=== PATIENT | female | born 1945 | race Caucasian/White ===

== ENCOUNTER 2017-09-11 13:30 | Outpatient (RCR) | payer MEDICARE, OTHER, SELFPAY ==
[2017-08-12 00:24] VITALS: BP 133/70; PULSE 79; RESP 16; TEMP 35.5
[2017-08-21 13:14] VITALS: BP 106/73; PULSE 84; RESP 18; TEMP 36.2
--- NOTE | 2017-08-21 21:59 | PN.PCM_ITS ---
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 Status: Chronic Current Visit: Yes Code(s): L97.912 - 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chronic ulcer of unspecified part of right lower leg with fat layer exposed (3) Lymphedema of lower extremity Status: Chronic Current Visit: Yes Qualifiers: Laterality: bilateral Qualified Code(s): I89.0 - Lymphedema, not elsewhere classified Code(s): I89.0 - Lymphedema, not elsewhere classified (4) Malnutrition Status: Chronic Current Visit: Yes Code(s): E46 - Unspecified protein- calorie malnutrition (5) Edema leg Status: Chronic Current Visit: Yes Code(s): R60.0 - Localized edema (6) Venous insufficiency (chronic) (peripheral) Status: Chronic Current Visit: Yes Type of Wound Date of Service: 08/22/17 Chief Complaint: ulcer right leg with fat layer exposed. Worsening leg swelling secondary to fluid overload, lymphedema, and venous insufficiency. left leg ulcer with fat layer exposed. History of Wound: She is following up for right and left leg ulcerations that are chronic. She denies odor, loss of appetite, N/V/F/C/loss of appetite. She denies recent Lasix use. She also continues to use her left cam walker boot for her other musculoskeletal injuries while she waits for her Flora brace and appropriate shoe gear to be completed. She uses an assistive device and family helps her transport to various medical visits. She had continued difficulty with her compression dressings. She is getting frustrated with her lack of improvement and her worsening leg swelling. She is here today with her daughter. Progress of Wound: Worse - Physical Exam Vital Signs Temp Pulse Resp BP 97.1 F L 84 18 106/73 08/21/17 13:14 08/21/17 13:14 08/21/17 13:14 08/21/17 13:14 General: Alert, Oriented x3, Cooperative Extremities: No cyanosis, Capillary Refill Less than 3 Seconds - All digits bilateral foot, No Calf Tenderness - Negative Cassie and Benitez sign bilateral, Diminished Peripheral Pulses, Edema - +3 bilateral lower extremities Skin: Ulcer/ Wound - Right leg ulcer is now circumferential. Her skin is atrophic with hyperpigmented discoloration and no hair bilateral. The left leg is more of a some hemorrhagic tissue exposure and the right leg has exposed subcutaneous tissue. There is no odor, maceration, erythema, streaking, or deep tissue exposure. Her legs are indurated however the compartments of the lower extremities remain soft bilateral Wound Measurements and Assessment WC - Nurse 1 - General Ulcer Measurement Start: 08/21/17 13:14 Freq: Status: Active Protocol: Activity Type Activity Date Activity User E-Sign Co-Sign Detail Recorded Client Recorded Date Recorded By Document 08/21/17 13:14 DL [id number] 08/21/17 13:23 DL 08/21/17 13:14 Wound Center Nurse 1 [Ulcer Assessment Protocol: WC.WD.LOC] #6- RT MEDIAL LE CLUSTER -Combined with other wound Yes -Combined with (Name of Wound-Exactly 3 as it is documented) #4 L Lat LE cluster -Combined with other wound No -Current Size (cm) - Length 16.5 -Current Size (cm) - Width 9.1 -Current Size (cm) - Depth 0.1 -Total Square Cm 150.15 -Photo Taken No -Epithelialization None Present -Tunneling No -Undermining/Tunneling No -Circular Undermining No -Exudate Amt Large (67-100%) -Exudate Type Serosanguineous -Wound Margin Flat & Intact -Granulation Amt Large (67-100%) -Granulation Quality Red -Slough/Fibrin Yes -Necrosis Amt Small (1-33%) -Necrotic Tissue Type Adherent Slough -Structure Exposed N/A -Texture (Vickie-wound Skin Appearance) Assessed Excoriation Localized Edema -Moisture (Vickie-wound Skin Appearance Assessed ) Dry/Scaly -Color (Vickie-wound Skin Appearance) Assessed Hemosiderin Staining -Temperature (Vickie-wound Skin No Abnormality Appearance) (Pt Warm) -Tenderness on Palpation (Vickie-wound Yes Skin Appearance) -Ulcer Cleansing Wound Cleanser -Foul Odor after Cleansing No -Anesthetic Used 4% Lidocaine Solution #3- RT LE CLUSTER -Combined with other wound No -Current Size (cm) - Length 12.5 -Current Size (cm) - Width 40.0 -Current Size (cm) - Depth 0.1 -Total Square Cm 500.00 -Photo Taken No -Epithelialization None Present -Tunneling No -Undermining/Tunneling No -Exudate Amt Large (67-100%) -Exudate Type Serosanguineous -Wound Margin Flat & Intact -Granulation Amt Large (67-100%) -Granulation Quality Red -Slough/Fibrin Yes -Necrosis Amt Small (1-33%) -Necrotic Tissue Type Adherent Slough -Structure Exposed N/A -Texture (Vickie-wound Skin Appearance) Assessed Excoriation Localized Edema -Moisture (Vickie-wound Skin Appearance Assessed ) Weeping Dry/Scaly -Color (Vickie-wound Skin Appearance) Assessed Hemosiderin Staining -Temperature (Vickie-wound Skin No Abnormality Appearance) (Pt Warm) -Tenderness on Palpation (Vickie-wound No Skin Appearance) -Ulcer Cleansing Wound Cleanser -Foul Odor after Cleansing No -Anesthetic Used 4% Lidocaine Solution #2- RT LATERAL POST LE cluster -Combined with other wound Yes -Combined with (Name of Wound-Exactly 3 as it is documented) [Edema Assessment] -Lower Limb Edema Present Yes -Right Calf (cm) 57.0 -Right Ankle (cm) 24.0 -Left Calf (cm) 54.0 -Left Ankle (cm) 24.0 WC - Nurse 2 - General Ulcer CM Notes Start: 08/21/17 13:14 Freq: Status: Active Protocol: Activity Type Activity Date Activity User E-Sign Co-Sign Detail Recorded Client Recorded Date Recorded By Document 08/21/17 13:45 PARVIZ [id number] 08/21/17 13:46 PARVIZ 08/21/17 13:45 Wound Center Nurse 2 [Procedure/Treatment] #4 L Lat LE cluster -Correct Patient No -Correct Side, Site, Position No -Correct Procedure No -Procedure Performed No #3- RT LE CLUSTER -Correct Patient No -Correct Side, Site, Position No -Correct Procedure No -Procedure Performed No [See Physician Procedure note for Specifics] Pain Scale: 0-10 Numeric [Pain] -Is Patient Pain Free? Yes Musculoskeletal: No Tenderness to Palpation of Joints or Extremities, Muscle Wasting, - - Active range of motion toes bilateral Neurological: Sensory exam intact to light touch and pain Psych/Mental Status: Normal Affect, Appropriate Debridement Note Post-Debridement Measurements/Treatment WC - Nurse 2 - General Ulcer CM Notes Start: 08/21/17 13:14 Freq: Status: Active Protocol: Activity Type Activity Date Activity User E-Sign Co-Sign Detail Recorded Client Recorded Date Recorded By Document 08/21/17 13:45 [id number] 08/21/17 13:46 PARVIZ 08/21/17 13:45 Wound Center Nurse 2 #4 L Lat LE cluster -Correct Patient No -Correct Side, Site, Position No -Correct Procedure No -Procedure Performed No #3- RT LE CLUSTER -Correct Patient No -Correct Side, Site, Position No -Correct Procedure No -Procedure Performed No Pain Scale: 0-10 Numeric Is Patient Pain Free? Yes Wound debrided: Leg Laterality: Right Wound Grade/Stage: Grade 1 Type of Debridement: Excisional debridement Anesthesia Used: 4% Lidocaine Solution Depth: in the subcutaneous layer Percentage of wound debrided: 100 Instrument Used: #15 blade Tissue Removed: Fibrous, devitalized subcutaneous, biofilm, slough Severity: Fat Layer Exposed Amount of bleeding with debridement: Mild Bleeding Controlled with: Pressure Patient tolerated procedure well - Additional Wound Wound debrided: Leg Laterality: Left Wound Grade/Stage: Grade 1 Type of Debridement: Selective debridement Anesthesia Used: 4% Lidocaine Solution Depth: Down to and including healthy tissue Percentage of wound debrided: 100 Instrument Used: #15 blade Tissue Removed: Fibrous, devitalized tissue, biofilm, slough Severity: Limited To Skin Breakdown Amount of bleeding with debridement: Mild Bleeding Controlled with: Pressure Patient tolerated procedure: Patient tolerated procedure well Assessment/Plan Active Problems Venous insufficiency (chronic) (peripheral) (Chronic) Lymphedema of lower extremity (Chronic) Chronic ulcer of right leg with fat layer exposed (Chronic) Ulcer of left lower extremity with fat layer exposed (Chronic) Malnutrition (Chronic) Edema leg (Chronic) Assessment: Right leg ulcers with fat layer exposed; multiple. left leg ulcer with fat layer exposed. leg edema, lymphedema. malnutrition. venous insufficiency. delayed healing. Gait instability and continued fall risk. Nonadherence to treatment recommendations. 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 Debridement was performed as noted above and in the clinical panel (SQ) and selective to both legs to multiple sites. She defers continue to advance wound care product application, Apligraf. Keeping these dressings in place significantly impairs her quality of life. 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 It is noted her body habitus is limiting the results. To continue diuresis plan with her primary care physician; a refill for Lasix and potassium was provided. I advised her to resume use as previously advised. A referral was provided to Dr. Kunz (august 14 and ) to see if venous intervention is a treatment option. She is scheduled to follow-up on September 30, 2017 for further intervention. Today, a multilayer later compression wrap 3M2L was applied and she was advised to return for nursing visit later this week. . We discussed in depth the importance of edema control. To keep legs elevated above heart while resting. To avoid lying directly on the wound while seated or in bed. To avoid idle standing or sitting for prolonged time. To monitor for signs of infection. This is not noted today. To maintain a healthy diet to optimize healing. Lab work was also previously reviewed including CBC and CMP. RTC (wound center) in 1 week as scheduled or call sooner if she has questions or concerns.
[2017-08-26 12:04] VITALS: BP 150/73; PULSE 85; RESP 18; TEMP 35.5
[2017-08-28 13:01] VITALS: BP 116/65; PULSE 90; RESP 16; TEMP 35.2
--- NOTE | 2017-08-28 21:30 | PN.PCM_ITS ---
(1) Ulcer of left lower extremity with fat layer exposed Status: Chronic Code(s): L97.922 - 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chronic ulcer of unspecified part of left lower leg with fat layer exposed (2) Chronic ulcer of right leg with fat layer exposed Status: Chronic Code(s): L97.912 - 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chronic ulcer of unspecified part of right lower leg with fat layer exposed (3) Lymphedema of lower extremity Status: Chronic Qualifiers: Laterality: bilateral Qualified Code(s): I89.0 - Lymphedema, not elsewhere classified Code(s): I89.0 - Lymphedema, not elsewhere classified (4) Malnutrition Status: Chronic Code(s): E46 - Unspecified protein-calorie malnutrition (5) Edema leg Status: Chronic Code(s): R60.0 - Localized edema (6) Venous insufficiency (chronic) (peripheral) Status: Chronic Type of Wound Date of Service: 08/31/17 Chief Complaint: leg ulcers. History of Wound: She is following up for right and left leg ulcerations that are chronic. She denies odor, loss of appetite, N/V/F/C/loss of appetite. She denies recent Lasix use. She also continues to use her left cam walker boot for her other musculoskeletal injuries while she waits for her Flora brace and appropriate shoe gear to be completed. She does not have this on today due to the snow. She uses an assistive device and family helps her transport to various medical visits. She is scheduled to follow-up for vascular venous intervention on September [address] Kunz. Progress of Wound: Stable - Physical Exam Vital Signs Temp Pulse Resp BP 95.3 F L 90 16 116/65 08/28/17 13:01 08/28/17 13:01 08/28/17 13:01 08/28/17 13:01 General: Alert, Oriented x3, Cooperative Extremities: No cyanosis, Capillary Refill Less than 3 Seconds, No Calf Tenderness - Negative Cassie and Benitez sign bilateral, Diminished Peripheral Pulses, Edema - Bilateral lower extremities Skin: Ulcer/ Wound - No purulence, no erythema, no streaking, no infection, no odor. There are new skin islands to bilateral lower extremities resulting in a smaller percentage of the measured clusters. The skin is atrophic and very friable bilateral lower extremities Wound Measurements and Assessment WC - Nurse 1 - General Ulcer Measurement Start: 08/21/17 13:14 Freq: Status: Active Protocol: Activity Type Activity Date Activity User E-Sign Co-Sign Detail Recorded Client Recorded Date Recorded By Document 08/26/17 12:04 [facility] [id number] 08/26/17 12:36 BMF Document 08/28/17 13:01 BMF [id number] 08/28/17 13:20 BMF 08/26/17 08/28/17 12:04 13:01 [Ulcer Assessment Protocol: WC.WD.LOC] #4 L Lat LE cluster -Combined with other wound No -Current Size (cm) - Length 14.9 -Current Size (cm) - Width 11.0 -Current Size (cm) - Depth 0.1 -Total Square Cm (40% debrided) 163.90 (65.56) -Date of Last Picture (Recall this 08/28/17 field) -Photo Taken Yes -Epithelialization None Present -Tunneling No -Undermining/Tunneling No -Exudate Amt Large (67-100%) -Exudate Type Serosanguineous -Granulation Amt Large (67-100%) -Granulation Quality Red -Slough/Fibrin Yes -Necrosis Amt Small (1-33%) -Necrotic Tissue Type Adherent Slough -Structure Exposed None/Limited to Skin Breakdown -Texture (Vickie-wound Skin Appearance) Excoriation Scarring -Moisture (Vickie-wound Skin Appearance Maceration ) Weeping Dry/Scaly -Color (Vickie-wound Skin Appearance) Erythema Hemosiderin Staining -Temperature (Vickie-wound Skin No Abnormality Appearance) (Pt Warm) -Tenderness on Palpation (Vickie-wound Yes Skin Appearance) -Ulcer Cleansing Wound Cleanser -Foul Odor after Cleansing No -Anesthetic Used 4% Lidocaine Solution #3- RT LE CLUSTER -Combined with other wound No -Current Size (cm) - Length 15.5 -Current Size (cm) - Width 30.0 -Current Size (cm) - Depth 0.1 -Total Square Cm (20 % of measured cluster) 465.00 (93) -Date of Last Picture (Recall this 08/28/17 field) -Photo Taken Yes -Epithelialization None Present -Tunneling No -Undermining/Tunneling No -Exudate Amt Large (67-100%) -Exudate Type Serosanguineous -Wound Margin Distinct, Outline Attached -Granulation Amt Medium (34-66%) -Granulation Quality Red -Slough/Fibrin Yes -Necrosis Amt Medium (34-66%) -Necrotic Tissue Type Adherent Slough -Structure Exposed None/Limited to Skin Breakdown -Texture (Vickie-wound Skin Appearance) Excoriation Scarring -Moisture (Vickie-wound Skin Appearance Maceration ) Weeping Dry/Scaly -Color (Vickie-wound Skin Appearance) Erythema Hemosiderin Staining -Temperature (Vickie-wound Skin No Abnormality Appearance) (Pt Warm) -Tenderness on Palpation (Vickie-wound Yes Skin Appearance) -Ulcer Cleansing Wound Cleanser -Foul Odor after Cleansing No -Anesthetic Used 4% Lidocaine Solution Wound Center Nurse 1 [Edema Assessment] -Lower Limb Edema Present Yes Yes -Right Calf (cm) 52.5 46.7 -Right Ankle (cm) 25.2 23.9 -Left Calf (cm) 50 45.1 -Left Ankle (cm) 25 23.4 WC - Nurse 2 - General Ulcer CM Notes Start: 08/21/17 13:14 Freq: Status: Active Protocol: Activity Type Activity Date Activity User E-Sign Co-Sign Detail Recorded Client Recorded Date Recorded By Document 08/28/17 16:56 [id number] 08/28/17 16:59 PARVIZ 08/28/17 16:56 Wound Center Nurse 2 [Procedure/Treatment] #4 L Lat LE cluster -Time 16:56 -Correct Patient Yes -Correct Side, Site, Position Yes -Correct Procedure Yes -Procedure Performed Yes -Type of Procedure Debridement -Clinical Debridement Subcutaneous -Post Debridement Size (cm) - Length 15.6 -Post Debridement Size (cm) - Width 30.1 -Post Debridement Size (cm) - Depth 0.1 -Total Square Cm (20% of cluster debrided) 469.56 (93.9 debrided) -Wound/Ulcer Outcome Not Healed -Ulcer Cleansing Rinsed/ Irrigated with Saline -Foul Odor after Cleansing No -Bioengineered Tissue No -Cetacaine [place] No -Bleeding Controlled with Pressure -Other 20% of the ulcer was debrided--only 93.9cm2 debrided. -Treatment Response Procedure Tolerated Well #3- RT LE CLUSTER -Time 16:57 -Correct Patient Yes -Correct Side, Site, Position Yes -Correct Procedure Yes -Procedure Performed Yes -Type of Procedure Debridement -Clinical Debridement Subcutaneous -Post Debridement Size (cm) - Length 15.0 -Post Debridement Size (cm) - Width 11.1 -Post Debridement Size (cm) - Depth 0.1 -Total Square Cm (40% of cluster debrided) 166.50 (66.6 debrided) -Wound/Ulcer Outcome Not Healed -Ulcer Cleansing Rinsed/ Irrigated with Saline -Foul Odor after Cleansing No -Bioengineered Tissue No -Cetacaine [place] No -Bleeding Controlled with Pressure -Other 40% of ulcer debrided by Dr Interiano--93. 9cm2. -Treatment Response Procedure Tolerated Well [See Physician Procedure note for Specifics] Pain Scale: 0-10 Numeric [Pain] -Is Patient Pain Free? Yes total square cm debrided: 159.6 sq cm Musculoskeletal: No Tenderness to Palpation of Joints or Extremities, Muscle Wasting, Tenderness - Pain with manipulation bilateral, - - No crepitus on palpation bilateral lower extremities in the compartments of the lower extremities remain soft bilateral Neurological: Sensory exam intact to light touch and pain Psych/Mental Status: Normal Affect, Appropriate Debridement Note Post-Debridement Measurements/Treatment WC - Nurse 2 - General Ulcer CM Notes Start: 08/21/17 13:14 Freq: Status: Active Protocol: Activity Type Activity Date Activity User E-Sign Co-Sign Detail Recorded Client Recorded Date Recorded By Document 08/21/17 13:45 [id number] 08/21/17 13:46 Document 08/28/17 16:56 [id number] 08/28/17 16:59 08/21/17 08/28/17 13:45 16:56 Wound Center Nurse 2 #4 L Lat ADRIEL cluster -Time 16:56 -Correct Patient No Yes -Correct Side, Site, Position No Yes -Correct Procedure No Yes -Procedure Performed No Yes -Type of Procedure Debridement -Clinical Debridement Subcutaneous -Post Debridement Size (cm) - Length 15.6 -Post Debridement Size (cm) - Width 30.1 -Post Debridement Size (cm) - Depth 0.1 -Total Square Cm 469.56 -Wound/Ulcer Outcome Not Healed -Ulcer Cleansing Rinsed/ Irrigated with Saline -Foul Odor after Cleansing No -Bioengineered Tissue No -Cetacaine [place] No -Bleeding Controlled with Pressure -Other 20% of the ulcer was debrided--only 93.9cm2 debrided. -Treatment Response Procedure Tolerated Well #3- RT LE CLUSTER -Time 16:57 -Correct Patient No Yes -Correct Side, Site, Position No Yes -Correct Procedure No Yes -Procedure Performed No Yes -Type of Procedure Debridement -Clinical Debridement Subcutaneous -Post Debridement Size (cm) - Length 15.0 -Post Debridement Size (cm) - Width 11.1 -Post Debridement Size (cm) - Depth 0.1 -Total Square Cm 166.50 -Wound/Ulcer Outcome Not Healed -Ulcer Cleansing Rinsed/ Irrigated with Saline -Foul Odor after Cleansing No -Bioengineered Tissue No -Cetacaine [place] No -Bleeding Controlled with Pressure -Other 40% of ulcer debrided by Dr Interiano--93. 9cm2. -Treatment Response Procedure Tolerated Well Pain Scale: 0-10 Numeric Is Patient Pain Free? Yes Yes Wound debrided: Leg Laterality: Right Type of Debridement: Excisional debridement Anesthesia Used: 4% Lidocaine Solution Depth: in the subcutaneous layer Percentage of wound debrided: 40 Instrument Used: 5mm curette Tissue Removed: Fibrous, devitalized subcutaneous, biofilm, slough Severity: Fat Layer Exposed Amount of bleeding with debridement: Mild Bleeding Controlled with: Pressure Patient tolerated procedure well - Additional Wound Wound debrided: leg Laterality: Left Type of Debridement: Excisional debridement Anesthesia Used: 4% Lidocaine Solution Depth: in the subcutaneous layer Percentage of wound debrided: 20 Instrument Used: 5mm curette Tissue Removed: Fibrous, devitalized subcutaneous, biofilm, slough Severity: Fat Layer Exposed Amount of bleeding with debridement: Mild Bleeding Controlled with: Pressure Patient tolerated procedure: Patient tolerated procedure well Assessment/Plan Assessment: Right leg ulcers with fat layer exposed. left leg ulcer with fat layer exposed. leg edema, lymphedema. malnutrition. venous insufficiency. delayed healing. Gait instability and continued fall risk. Nonadherence to treatment recommendations. 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 Debridement was performed as noted above and in the clinical panel (SQ) and selective to both legs to multiple sites. 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 It is noted her body habitus is limiting the results. To continue diuresis plan with her primary care physician; a refill for Lasix and potassium was provided. I advised her to resume use as previously advised. A referral was provided to Dr. Kunz (august 14 and ) to see if venous intervention is a treatment option. She is scheduled to follow -up on September 30, 2017 for further intervention. Today, a multilayer later compression wrap 3M2L was applied and she was advised to return for nursing visit later this week. Pearl was applied prior to the compression dressing. Home health was also initiated. . We discussed in depth the importance of edema control. To keep legs elevated above heart while resting. To avoid lying directly on the wound while seated or in bed. To avoid idle standing or sitting for prolonged time. To monitor for signs of infection. This is not noted today. To maintain a healthy diet to optimize healing. Lab work was also previously reviewed including CBC and CMP. RTC (wound center) in 1 week as scheduled or call sooner if she has questions or concerns.
[2017-09-04 13:48] VITALS: BP 148/72; PULSE 67; RESP 18; TEMP 36.2
--- NOTE | 2017-09-04 23:26 | PN.PCM_ITS ---
(1) Ulcer of left lower extremity with fat layer exposed Status: Chronic Code(s): L97.922 - 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chronic ulcer of unspecified part of left lower leg with fat layer exposed (2) Chronic ulcer of right leg with fat layer exposed Status: Chronic Code(s): L97.912 - 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chronic ulcer of unspecified part of right lower leg with fat layer exposed (3) Lymphedema of lower extremity Status: Chronic Qualifiers: Laterality: bilateral Qualified Code(s): I89.0 - Lymphedema, not elsewhere classified Code(s): I89.0 - Lymphedema, not elsewhere classified (4) Malnutrition Status: Chronic Code(s): E46 - Unspecified protein-calorie malnutrition (5) Edema leg Status: Chronic Code(s): R60.0 - Localized edema (6) Venous insufficiency (chronic) (peripheral) Status: Chronic Type of Wound Date of Service: 09/07/17 Chief Complaint: leg ulcers. History of Wound: She is following up for right and left leg ulcerations that are chronic. She denies odor, loss of appetite, N/V/F/C/loss of appetite. She denies recent Lasix use. She is scheduled to follow-up for vascular venous intervention on September [address] Kunz. Progress of Wound: Stable - Physical Exam Vital Signs Temp Pulse Resp BP 97.1 F L 67 18 148/72 H 09/04/17 13:48 09/04/17 13:48 09/04/17 13:48 09/04/17 13:48 General: Alert, Oriented x3, Cooperative Extremities: No cyanosis, Capillary Refill Less than 3 Seconds, No Calf Tenderness - negative dian and jackson signs bilateral, Diminished Peripheral Pulses, Edema - bilateral slightly decreased Skin: Ulcer/ Wound - no purlence, no erythema, no infection. atrophic skin noted. Wound Measurements and Assessment WC - Nurse 1 - General Ulcer Measurement Start: 08/21/17 13:14 Freq: Status: Active Protocol: Activity Type Activity Date Activity User E-Sign Co-Sign Detail Recorded Client Recorded Date Recorded By Document 09/04/17 13:48 [facility] [id number] 09/04/17 14:11 [facility] 09/04/17 13:48 Wound Center Nurse 1 [Ulcer Assessment Protocol: ANATOLIY.WD.LOC] #4 L Lat LE cluster -Combined with other wound No -Current Size (cm) - Length 8 -Current Size (cm) - Width 10.5 -Current Size (cm) - Depth 0.1 -Total Square Cm 84.0 -Photo Taken No -Epithelialization Medium 34-66% -Tunneling No -Undermining/Tunneling No -Exudate Amt Medium (34-66%) -Exudate Type Serosanguineous -Granulation Amt Large (67-100%) -Granulation Quality Red -Slough/Fibrin No -Necrosis Amt None Present (0 %) -Structure Exposed None/Limited to Skin Breakdown -Texture (Vickie-wound Skin Appearance) Scarring -Moisture (Vickie-wound Skin Appearance Dry/Scaly ) -Color (Vickie-wound Skin Appearance) Erythema Hemosiderin Staining -Temperature (Vickie-wound Skin No Abnormality Appearance) (Pt Warm) -Tenderness on Palpation (Vickie-wound Yes Skin Appearance) -Ulcer Cleansing Rinsed/ Irrigated with Saline -Foul Odor after Cleansing No -Anesthetic Used 4% Lidocaine Solution #3- RT LE CLUSTER -Combined with other wound No -Current Size (cm) - Length 13.2 -Current Size (cm) - Width 11.9 -Current Size (cm) - Depth 0.2 -Total Square Cm 157.08 -Photo Taken No -Epithelialization Medium 34-66% -Tunneling No -Undermining/Tunneling No -Exudate Amt Medium (34-66%) -Exudate Type Serosanguineous -Granulation Amt Small (1-33%) -Granulation Quality Red -Slough/Fibrin Yes -Necrosis Amt Large (67-100%) -Necrotic Tissue Type Adherent Slough -Structure Exposed None/Limited to Skin Breakdown -Texture (Vickie-wound Skin Appearance) Scarring -Moisture (Vickie-wound Skin Appearance Maceration ) Weeping Dry/Scaly -Color (Vickie-wound Skin Appearance) Erythema Hemosiderin Staining -Temperature (Vickie-wound Skin No Abnormality Appearance) (Pt Warm) -Tenderness on Palpation (Vickie-wound Yes Skin Appearance) -Ulcer Cleansing Rinsed/ Irrigated with Saline -Foul Odor after Cleansing No -Anesthetic Used 4% Lidocaine Solution [Edema Assessment] -Lower Limb Edema Present Yes -Right Calf (cm) 48 -Right Ankle (cm) 24.3 -Left Calf (cm) 47 -Left Ankle (cm) 23.2 WC - Nurse 2 - General Ulcer CM Notes Start: 08/21/17 13:14 Freq: Status: Active Protocol: Activity Type Activity Date Activity User E-Sign Co-Sign Detail Recorded Client Recorded Date Recorded By Document 09/04/17 14:31 TM [id number] 09/04/17 14:34 TM 09/04/17 14:31 Wound Center Nurse 2 [Procedure/Treatment] #4 L Lat LE cluster -Time 14:31 -Correct Patient Yes -Correct Side, Site, Position Yes -Correct Procedure Yes -Procedure Performed Yes -Type of Procedure Debridement -Clinical Debridement Subcutaneous -Post Debridement Size (cm) - Length 8.1 -Post Debridement Size (cm) - Width 10.6 -Post Debridement Size (cm) - Depth 0.1 -Total Square Cm 85.86 -Wound/Ulcer Outcome Not Healed -Ulcer Cleansing Rinsed/ Irrigated with Saline -Foul Odor after Cleansing No -Bioengineered Tissue No -Cetacaine [place] No -Topical Lidocaine (%) 5 -Bleeding Controlled with Pressure -Treatment Response Procedure Tolerated Well #3- RT LE CLUSTER -Time 14:32 -Correct Patient Yes -Correct Side, Site, Position Yes -Correct Procedure Yes -Procedure Performed Yes -Type of Procedure Debridement -Clinical Debridement Subcutaneous -Post Debridement Size (cm) - Length 13.3 -Post Debridement Size (cm) - Width 12.0 -Post Debridement Size (cm) - Depth 0.2 -Total Square Cm 159.60 -Wound/Ulcer Outcome Not Healed -Ulcer Cleansing Rinsed/ Irrigated with Saline -Foul Odor after Cleansing No -Bioengineered Tissue No -Cetacaine [place] No -Topical Lidocaine (%) 5 -Bleeding Controlled with Pressure -Treatment Response Procedure Tolerated Well [See Physician Procedure note for Specifics] Pain Scale: 0-10 Numeric [Pain] -Is Patient Pain Free? Yes Musculoskeletal: No Tenderness to Palpation of Joints or Extremities, Muscle Wasting, - - compartments are soft bilateral Neurological: Sensory exam intact to light touch and pain Psych/Mental Status: Normal Affect, Appropriate Debridement Note Post-Debridement Measurements/Treatment WC - Nurse 2 - General Ulcer CM Notes Start: 08/21/17 13:14 Freq: Status: Active Protocol: Activity Type Activity Date Activity User E-Sign Co-Sign Detail Recorded Client Recorded Date Recorded By Document 08/21/17 13:45 [id number] 08/21/17 13:46 Document 08/28/17 16:56 [id number] 08/28/17 16:59 Document 09/04/17 14:31 [id number] 09/04/17 14:34 TM 08/21/17 08/28/17 09/04/17 13:45 16:56 14:31 Wound Center Nurse 2 #4 L Lat LE cluster -Time 16:56 14:31 -Correct Patient No Yes Yes -Correct Side, Site, Position No Yes Yes -Correct Procedure No Yes Yes -Procedure Performed No Yes Yes -Type of Procedure Debridement Debridement -Clinical Debridement Subcutaneous Subcutaneous -Post Debridement Size (cm) - Length 15.6 8.1 -Post Debridement Size (cm) - Width 30.1 10.6 -Post Debridement Size (cm) - Depth 0.1 0.1 -Total Square Cm 469.56 85.86 -Wound/Ulcer Outcome Not Healed Not Healed -Ulcer Cleansing Rinsed/ Rinsed/ Irrigated with Irrigated with Saline Saline -Foul Odor after Cleansing No No -Bioengineered Tissue No No -Cetacaine [place] No No -Topical Lidocaine (%) 5 -Bleeding Controlled with Pressure Pressure -Other 20% of the ulcer was debrided--only 93.9cm2 debrided. -Treatment Response Procedure Procedure Tolerated Well Tolerated Well #3- RT LE CLUSTER -Time 16:57 14:32 -Correct Patient No Yes Yes -Correct Side, Site, Position No Yes Yes -Correct Procedure No Yes Yes -Procedure Performed No Yes Yes -Type of Procedure Debridement Debridement -Clinical Debridement Subcutaneous Subcutaneous -Post Debridement Size (cm) - Length 15.0 13.3 -Post Debridement Size (cm) - Width 11.1 12.0 -Post Debridement Size (cm) - Depth 0.1 0.2 -Total Square Cm 166.50 159.60 -Wound/Ulcer Outcome Not Healed Not Healed -Ulcer Cleansing Rinsed/ Rinsed/ Irrigated with Irrigated with Saline Saline -Foul Odor after Cleansing No No -Bioengineered Tissue No No -Cetacaine [place] No No -Topical Lidocaine (%) 5 -Bleeding Controlled with Pressure Pressure -Other 40% of ulcer debrided by Dr Interiano--93. 9cm2. -Treatment Response Procedure Procedure Tolerated Well Tolerated Well Pain Scale: 0-10 Numeric Is Patient Pain Free? Yes Yes Yes Wound debrided: leg Laterality: Right Wound Grade/Stage: grade1 Type of Debridement: Excisional debridement Anesthesia Used: 4% Lidocaine Solution Depth: in the subcutaneous layer Percentage of wound debrided: 100 Instrument Used: #15 blade Tissue Removed: Fibrous, devitalized subcutaneous, biofilm, slough Severity: Fat Layer Exposed Amount of bleeding with debridement: Mild Bleeding Controlled with: Pressure Patient tolerated procedure well - Additional Wound Wound debrided: leg Laterality: Left Wound Grade/Stage: grade 1 Type of Debridement: Excisional debridement Anesthesia Used: 4% Lidocaine Solution Depth: in the subcutaneous layer Percentage of wound debrided: 100 Instrument Used: #15 blade Severity: Fat Layer Exposed Amount of bleeding with debridement: Mild Bleeding Controlled with: Pressure Patient tolerated procedure: Patient tolerated procedure well Assessment/Plan Assessment: Right leg ulcers with fat layer exposed. left leg ulcer with fat layer exposed. leg edema, lymphedema. malnutrition. venous insufficiency. delayed healing. Gait instability and continued fall risk. Nonadherence to treatment recommendations. 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 Debridement was performed as noted above and in the clinical panel (SQ) and selective to both legs to multiple sites. 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 It is noted her body habitus is limiting the results. To continue diuresis plan with her primary care physician; a refill for Lasix and potassium was provided. I advised her to resume use as previously advised. A referral was provided to Dr. Kunz (august 14 and ) to see if venous intervention is a treatment option. She is scheduled to follow -up on September 30, 2017 for further intervention. Today, a multilayer later compression wrap 3M2L was applied and she was advised to return for nursing visit later this week. Pearl was applied prior to the compression dressing. Home health was also initiated. . We discussed in depth the importance of edema control. To keep legs elevated above heart while resting. To avoid lying directly on the wound while seated or in bed. To avoid idle standing or sitting for prolonged time. To monitor for signs of infection. This is not noted today. To maintain a healthy diet to optimize healing. Lab work was also previously reviewed including CBC and CMP. RTC (wound center) in 1 week as scheduled or call sooner if she has questions or concerns.
== END 2017-09-11 23:59 ==
LOC: WC 13:30
PROVIDERS: Family Provider Internal Medicine; PCP Internal Medicine; Visit Provider Podiatrist
DX: I73.9 Peripheral vascular disease, unspecified (principal); L97.922 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chronic ulcer of unspecified part of left lower leg with fat layer exposed; L97.812 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chronic ulcer of other part of right lower leg with fat layer exposed; I89.0 Lymphedema, not elsewhere classified; M76.822 Posterior tibial tendinitis, left leg; R60.0 Localized edema; I87.2 Venous insufficiency (chronic) (peripheral); M79.89 Other specified soft tissue disorders; R09.89 Other specified symptoms and signs involving the circulatory and respiratory systems; M13.88 Other specified arthritis, other site
CPT/HCPCS: 11042; 11045; 29581; 99213; 99214; G0463

== ENCOUNTER 2017-10-09 13:30 | Outpatient (RCR) | payer MEDICARE, OTHER, SELFPAY ==
[2017-01-09 13:37] VITALS: BMI 45.8
[2017-09-04 13:48] VITALS: BP 148/72
[2017-09-12 00:27] VITALS: PULSE 67; RESP 18; TEMP 36.2
[2017-10-02 13:23] VITALS: BP 124/78; PULSE 94; RESP 18; TEMP 36.3; BMI 45.8
--- NOTE | 2017-10-02 15:17 | PCM.WC.PN ---
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 Status: Chronic Current Visit: Yes Code(s): L97.912 - 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chronic ulcer of unspecified part of right lower leg with fat layer exposed (3) Delayed wound healing Status: Chronic Current Visit: Yes Code(s): T14.8 - Other injury of unspecified body region (4) Lymphedema of lower extremity Status: Chronic Current Visit: Yes Qualifiers: Laterality: bilateral Qualified Code(s): I89.0 - Lymphedema, not elsewhere classified Code(s): I89.0 - Lymphedema, not elsewhere classified (5) Venous insufficiency (chronic) (peripheral) Status: Chronic Current Visit: Yes (6) Malnutrition Status: Chronic Current Visit: Yes Code(s): E46 - Unspecified protein-calorie malnutrition Type of Wound Date of Service: 10/02/17 Chief Complaint: leg ulcers. History of Wound: She is following up for right and left leg ulcerations that are chronic. She denies odor, loss of appetite, N/V/F/C/loss of appetite. She denies recent Lasix use. She was scheduled to follow-up for vascular venous intervention on September [address] Kunz and this has not been rescheduled to next Saturday on October 06, 2017. She has not been to any of her appointments last month due to transportation issues and returns today with her daughter. She denies injury. [facility] has been helping her dressing changes and wound cleansing and this is going very well. Progress of Wound: Stable - Physical Exam Vital Signs Temp Pulse Resp BP 97.3 F L 94 18 124/78 H 10/02/17 13:23 10/02/17 13:23 10/02/17 13:23 10/02/17 13:23 General: Alert, Oriented x3, Cooperative Extremities: No cyanosis, Capillary Refill Less than 3 Seconds, No Calf Tenderness - Negative Cassie and Benitez sign bilateral lower extremities, Diminished Peripheral Pulses, Edema - Bilateral lower extremity with indurated tissue, hyperpigmentation. Skin: Ulcer/ Wound - No purulence, no erythema, no streaking, no acute signs of infection, - - The wound bases are granular with some interspersed fibrous tissue. No crepitus on palpation bilateral Wound Measurements and Assessment WC - Nurse 1 - General Ulcer Measurement Start: 10/02/17 13:23 Freq: Status: Active Protocol: Activity Type Activity Date Activity User E-Sign Co-Sign Detail Recorded Client Recorded Date Recorded By Document 10/02/17 13:23 DL [id number] 10/02/17 13:39 DL 10/02/17 13:23 Wound Center Nurse 1 [Ulcer Assessment] #4 L Lat LE cluster -Current Size (cm) - Length 1 -Current Size (cm) - Width 1 -Current Size (cm) - Depth 0.1 -Total Square Cm 1 -Photo Taken No -Exudate Amt Small (1-33%) -Exudate Type Serosanguineous -Wound Margin Flat & Intact -Granulation Amt Large (67-100%) -Granulation Quality [place] Red -Necrosis Amt Small (1-33%) -Necrotic Tissue Type Adherent Slough -Structure Exposed N/A -Texture (Vickie-wound Skin Appearance) Localized Edema Scarring -Moisture (Vickie-wound Skin Appearance No Abnormality ) -Color (Vickie-wound Skin Appearance) Hemosiderin Staining -Ulcer Cleansing Wound Cleanser -Foul Odor after Cleansing No -Anesthetic Used 4% Lidocaine Solution #3- RT LE CLUSTER -Current Size (cm) - Length 8.5 -Current Size (cm) - Width 12 -Current Size (cm) - Depth 0.2 -Total Square Cm 102.0 -Photo Taken No -Exudate Amt Medium (34-66%) -Exudate Type Serosanguineous -Wound Margin Indistinct, Non -Visible -Granulation Amt Small (1-33%) -Granulation Quality [place] Red -Necrosis Amt Small (1-33%) -Structure Exposed N/A -Texture (Vickie-wound Skin Appearance) Localized Edema Scarring -Moisture (Vickie-wound Skin Appearance No Abnormality ) -Color (Vickie-wound Skin Appearance) Hemosiderin Staining -Temperature (Vickie-wound Skin No Abnormality Appearance) (Pt Warm) -Ulcer Cleansing Wound Cleanser -Foul Odor after Cleansing No -Anesthetic Used 4% Lidocaine Solution [Edema Assessment] -Right Calf (cm) 44.5 -Right Ankle (cm) 23 -Left Calf (cm) 46.4 -Left Ankle (cm) 22 WC - Nurse 2 - General Ulcer CM Notes Start: 10/02/17 13:23 Freq: Status: Active Protocol: Activity Type Activity Date Activity User E-Sign Co-Sign Detail Recorded Client Recorded Date Recorded By Document 10/02/17 14:00 [id number] 10/02/17 14:01 10/02/17 14:00 Wound Center Nurse 2 [Procedure/Treatment] #4 L Lat LE cluster -Time 14:00 -Correct Patient Yes -Correct Side, Site, Position Yes -Correct Procedure Yes -Procedure Performed Yes -Type of Procedure Debridement -Clinical Debridement Subcutaneous -Post Debridement Size (cm) - Length 1.1 -Post Debridement Size (cm) - Width 1.1 -Post Debridement Size (cm) - Depth 0.1 -Total Square Cm 1.21 -Wound/Ulcer Outcome Not Healed -Ulcer Cleansing Rinsed/ Irrigated with Saline -Foul Odor after Cleansing No -Bioengineered Tissue No -Bleeding Controlled with Pressure -Treatment Response Procedure Tolerated Well #3- RT LE CLUSTER -Time 14:00 -Correct Patient Yes -Correct Side, Site, Position Yes -Correct Procedure Yes -Procedure Performed Yes -Type of Procedure Debridement -Clinical Debridement Subcutaneous -Post Debridement Size (cm) - Length 8.5 -Post Debridement Size (cm) - Width 12.1 -Post Debridement Size (cm) - Depth 0.2 -Total Square Cm 102.85 -Wound/Ulcer Outcome Not Healed -Ulcer Cleansing Rinsed/ Irrigated with Saline -Foul Odor after Cleansing No -Bioengineered Tissue No -Bleeding Controlled with Pressure -Treatment Response Procedure Tolerated Well [See Physician Procedure note for Specifics] Pain Scale: 0-10 Numeric [Pain] -Is Patient Pain Free? Yes Musculoskeletal: No Tenderness to Palpation of Joints or Extremities, Muscle Wasting Neurological: Sensory exam intact to light touch and pain Psych/Mental Status: Normal Affect, Appropriate Debridement Note Post-Debridement Measurements/Treatment - Nurse 2 - General Ulcer CM Notes Start: 10/02/17 13:23 Freq: Status: Active Protocol: Activity Type Activity Date Activity User E-Sign Co-Sign Detail Recorded Client Recorded Date Recorded By Document 10/02/17 14:00 [id number] 10/02/17 14:01 10/02/17 14:00 Wound Center Nurse 2 #4 L Lat LE cluster -Time 14:00 -Correct Patient Yes -Correct Side, Site, Position Yes -Correct Procedure Yes -Procedure Performed Yes -Type of Procedure Debridement -Clinical Debridement Subcutaneous -Post Debridement Size (cm) - Length 1.1 -Post Debridement Size (cm) - Width 1.1 -Post Debridement Size (cm) - Depth 0.1 -Total Square Cm 1.21 -Wound/Ulcer Outcome Not Healed -Ulcer Cleansing Rinsed/ Irrigated with Saline -Foul Odor after Cleansing No -Bioengineered Tissue No -Bleeding Controlled with Pressure -Treatment Response Procedure Tolerated Well #3- RT LE CLUSTER -Time 14:00 -Correct Patient Yes -Correct Side, Site, Position Yes -Correct Procedure Yes -Procedure Performed Yes -Type of Procedure Debridement -Clinical Debridement Subcutaneous -Post Debridement Size (cm) - Length 8.5 -Post Debridement Size (cm) - Width 12.1 -Post Debridement Size (cm) - Depth 0.2 -Total Square Cm 102.85 -Wound/Ulcer Outcome Not Healed -Ulcer Cleansing Rinsed/ Irrigated with Saline -Foul Odor after Cleansing No -Bioengineered Tissue No -Bleeding Controlled with Pressure -Treatment Response Procedure Tolerated Well Pain Scale: 0-10 Numeric Is Patient Pain Free? Yes Wound debrided: leg cluster Laterality: Right Type of Debridement: Excisional debridement Anesthesia Used: 4% Lidocaine Solution Depth: in the subcutaneous layer Percentage of wound debrided: 100 Instrument Used: 5mm curette, #15 blade Tissue Removed: fibrous, devitalized subcutaneous, biofilm, slough Severity: Fat Layer Exposed Amount of bleeding with debridement: Mild Bleeding Controlled with: Pressure Patient tolerated procedure well - Additional Wound Wound debrided: leg cluster Laterality: Left Type of Debridement: Excisional debridement Anesthesia Used: 4% Lidocaine Solution Depth: Down to and including healthy tissue Percentage of wound debrided: 100 Instrument Used: 5mm curette Tissue Removed: fibrous, devitalized subcutaneous, biofilm, slough Severity: Fat Layer Exposed Amount of bleeding with debridement: Mild Bleeding Controlled with: Pressure Patient tolerated procedure: Patient tolerated procedure well Assessment/Plan Active Problems Delayed wound healing (Chronic) Ulcer of left lower extremity with fat layer exposed (Chronic) Chronic ulcer of right leg with fat layer exposed (Chronic) Lymphedema of lower extremity (Chronic) Venous insufficiency (chronic) (peripheral) (Chronic) Malnutrition (Chronic) Assessment: Right leg ulcers with fat layer exposed. left leg ulcer with fat layer exposed. leg edema, lymphedema. malnutrition. venous insufficiency. delayed healing. Gait instability and continued fall risk. Nonadherence to treatment recommendations. 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 Debridement was performed as noted above and in the clinical panel (SQ) and selective to both legs to multiple sites. 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 It is noted her body habitus is limiting the results. To continue diuresis plan with her primary care physician; a refill for Lasix and potassium was provided. I advised her to resume use as previously advised. A referral was provided to Dr. Kunz (august 14 and ) to see if venous intervention is a treatment option. She is scheduled to follow-up on October 06, 2017 for further intervention. Today, a multilayer later compression wrap 3M2L was applied to the right lower extremity and gauze and light compression was applied to left lower extremity so she can enter into a shoe. Pearl was applied prior to the compression dressing. Home health was also initiated. . We discussed in depth the importance of edema control. To keep legs elevated above heart while resting. To avoid lying directly on the wound while seated or in bed. To avoid idle standing or sitting for prolonged time. To monitor for signs of infection. This is not noted today. To maintain a healthy diet to optimize healing. Lab work was also previously reviewed including CBC and CMP. It is noted she continues to work on obtaining either custom shoe or different extra-depth shoe that will accommodate her ankle-foot orthotic/bridges balance brace for the left lower extremity posterior tibialis tendinitis and dysfunction condition. RTC (wound center) in 1 week as scheduled or call sooner if she has questions or concerns.
[2017-10-09 13:33] VITALS: BP 136/65; PULSE 110; RESP 18; TEMP 35.8; BMI 45.8
--- NOTE | 2017-10-09 14:39 | PN.PCM_ITS ---
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 Status: Chronic Current Visit: Yes Code(s): L97.912 - 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chronic ulcer of unspecified part of right lower leg with fat layer exposed (3) Delayed wound healing Status: Chronic Current Visit: Yes Code(s): T14.8 - Other injury of unspecified body region (4) Lymphedema of lower extremity Status: Chronic Current Visit: Yes Qualifiers: Laterality: bilateral Qualified Code(s): I89.0 - Lymphedema, not elsewhere classified Code(s): I89.0 - Lymphedema, not elsewhere classified (5) Venous insufficiency (chronic) (peripheral) Status: Chronic Current Visit: Yes (6) Malnutrition Status: Chronic Current Visit: Yes Code(s): E46 - Unspecified protein- calorie malnutrition Type of Wound Date of Service: 10/09/17 Chief Complaint: leg ulcers. History of Wound: She is following up for right and left leg ulcerations that are chronic. She denies odor, loss of appetite, N/V/F/C/loss of appetite. She denies recent Lasix use. She was scheduled to follow-up for vascular venous intervention Dr. Kunz and attended this on Saturday. She has an additional follow-up and procedure scheduled for the left leg next week. Progress of Wound: Stable - Physical Exam Vital Signs Temp Pulse Resp BP 96.5 F L 110 H 18 136/65 H 10/09/17 13:33 10/09/17 13:33 10/09/17 13:33 10/09/17 13:33 General: Alert, Oriented x3, Cooperative Extremities: No cyanosis, Capillary Refill Less than 3 Seconds, No Calf Tenderness - Negative Cassie and Benitez bilateral, Diminished Peripheral Pulses, Edema - Increased bilateral lower extremities Skin: Ulcer/ Wound - No purulence, erythema, streaking, no odor. Wound beds have increased fibrous tissue to the right lower extremity. Her skin is atrophic with hyperpigmentation Wound Measurements and Assessment WC - Nurse 1 - General Ulcer Measurement Start: 10/02/17 13:23 Freq: Status: Active Protocol: Activity Type Activity Date Activity User E-Sign Co-Sign Detail Recorded Client Recorded Date Recorded By Document 10/09/17 13:33 MW [id number] 10/09/17 13:44 MW 10/09/17 13:33 Wound Center Nurse 1 [Ulcer Assessment] #4 L Lat LE cluster -Combined with other wound No -Current Size (cm) - Length 2.5 -Current Size (cm) - Width 4.5 -Current Size (cm) - Depth 0.1 -Total Square Cm 11.25 -Date of Last Picture (Recall this 10/09/17 field) -Photo Taken Yes -Epithelialization Small 1-33% -Tunneling No -Undermining/Tunneling No -Circular Undermining No -Exudate Amt Small (1-33%) -Exudate Type Serosanguineous -Wound Margin Flat & Intact -Granulation Amt Small (1-33%) -Granulation Quality [place] -Slough/Fibrin Yes -Necrosis Amt Large (67-100%) -Necrotic Tissue Type Adherent Slough -Structure Exposed N/A -Texture (Vickie-wound Skin Appearance) Assessed Localized Edema Scarring -Moisture (Vickie-wound Skin Appearance Assessed ) Dry/Scaly -Color (Vickie-wound Skin Appearance) Assessed Hemosiderin Staining Rubor -Temperature (Vickie-wound Skin No Abnormality Appearance) (Pt Warm) -Tenderness on Palpation (Vickie-wound Yes Skin Appearance) -Ulcer Cleansing Rinsed/ Irrigated with Saline -Foul Odor after Cleansing No -Anesthetic Used 5% Lidocaine Gel #3- RT LE CLUSTER -Combined with other wound No -Current Size (cm) - Length 5.0 -Current Size (cm) - Width 10.8 -Current Size (cm) - Depth 0.1 -Total Square Cm 54.00 -Date of Last Picture (Recall this 10/09/17 field) -Photo Taken Yes -Epithelialization Small 1-33% -Tunneling No -Undermining/Tunneling No -Circular Undermining No -Exudate Amt Small (1-33%) -Exudate Type Serosanguineous -Wound Margin Flat & Intact -Granulation Amt Small (1-33%) -Granulation Quality [place] -Slough/Fibrin Yes -Necrosis Amt Large (67-100%) -Necrotic Tissue Type Adherent Slough -Structure Exposed N/A -Texture (Vickie-wound Skin Appearance) Assessed Localized Edema Scarring -Moisture (Vickie-wound Skin Appearance Assessed ) Dry/Scaly -Color (Vickie-wound Skin Appearance) Assessed Hemosiderin Staining Rubor -Temperature (Vickie-wound Skin No Abnormality Appearance) (Pt Warm) -Tenderness on Palpation (Vickie-wound No Skin Appearance) -Ulcer Cleansing Rinsed/ Irrigated with Saline -Foul Odor after Cleansing No -Anesthetic Used 5% Lidocaine Gel [Edema Assessment] -Lower Limb Edema Present Yes -Right Calf (cm) 57.5 -Right Ankle (cm) 24.1 -Left Calf (cm) 56.5 -Left Ankle (cm) 24.6 WC - Nurse 2 - General Ulcer CM Notes Start: 10/02/17 13:23 Freq: Status: Active Protocol: Activity Type Activity Date Activity User E-Sign Co-Sign Detail Recorded Client Recorded Date Recorded By Document 10/09/17 14:06 PARVIZ [id number] 10/09/17 14:12 PARVIZ 10/09/17 14:06 Wound Center Nurse 2 [Procedure/Treatment] #4 L Lat LE cluster -Time 14:06 -Correct Patient Yes -Correct Side, Site, Position Yes -Correct Procedure Yes -Procedure Performed Yes -Type of Procedure Debridement -Clinical Debridement Subcutaneous -Post Debridement Size (cm) - Length 2.5 -Post Debridement Size (cm) - Width 4.6 -Post Debridement Size (cm) - Depth 0.1 -Total Square Cm (60% f cluster debrided) 11.50 (6.75 sq cm) -Wound/Ulcer Outcome Not Healed -Ulcer Cleansing Rinsed/ Irrigated with Saline -Foul Odor after Cleansing No -Bioengineered Tissue No -Bleeding Controlled with Pressure -Treatment Response Procedure Tolerated Well #3- RT LE CLUSTER -Time 14:07 -Correct Patient Yes -Correct Side, Site, Position Yes -Correct Procedure Yes -Procedure Performed Yes -Type of Procedure Debridement -Clinical Debridement Subcutaneous -Post Debridement Size (cm) - Length 5.1 -Post Debridement Size (cm) - Width 10.8 -Post Debridement Size (cm) - Depth 0.1 -Total Square Cm (80% of cluster debrided 55.08 (43.2 sq cm) -Wound/Ulcer Outcome Not Healed -Ulcer Cleansing Rinsed/ Irrigated with Saline -Foul Odor after Cleansing No -Bioengineered Tissue No -Bleeding Controlled with Pressure -Treatment Response Procedure Tolerated Well [See Physician Procedure note for Specifics] Pain Scale: 0-10 Numeric [Pain] -Is Patient Pain Free? Yes Musculoskeletal: No Tenderness to Palpation of Joints or Extremities, Muscle Wasting Neurological: Sensory exam intact to light touch and pain Psych/Mental Status: Normal Affect, Appropriate Debridement Note Post-Debridement Measurements/Treatment WC - Nurse 2 - General Ulcer CM Notes Start: 10/02/17 13:23 Freq: Status: Active Protocol: Activity Type Activity Date Activity User E-Sign Co-Sign Detail Recorded Client Recorded Date Recorded By Document 10/02/17 14:00 [id number] 10/02/17 14:01 Document 10/09/17 14:06 [id number] 10/09/17 14:12 10/02/17 10/09/17 14:00 14:06 Wound Center Nurse 2 #4 L Lat LE cluster -Time 14:00 14:06 -Correct Patient Yes Yes -Correct Side, Site, Position Yes Yes -Correct Procedure Yes Yes -Procedure Performed Yes Yes -Type of Procedure Debridement Debridement -Clinical Debridement Subcutaneous Subcutaneous -Post Debridement Size (cm) - Length 1.1 2.5 -Post Debridement Size (cm) - Width 1.1 4.6 -Post Debridement Size (cm) - Depth 0.1 0.1 -Total Square Cm 1.21 11.50 -Wound/Ulcer Outcome Not Healed Not Healed -Ulcer Cleansing Rinsed/ Rinsed/ Irrigated with Irrigated with Saline Saline -Foul Odor after Cleansing No No -Bioengineered Tissue No No -Bleeding Controlled with Pressure Pressure -Treatment Response Procedure Procedure Tolerated Well Tolerated Well #3- RT LE CLUSTER -Time 14:00 14:07 -Correct Patient Yes Yes -Correct Side, Site, Position Yes Yes -Correct Procedure Yes Yes -Procedure Performed Yes Yes -Type of Procedure Debridement Debridement -Clinical Debridement Subcutaneous Subcutaneous -Post Debridement Size (cm) - Length 8.5 5.1 -Post Debridement Size (cm) - Width 12.1 10.8 -Post Debridement Size (cm) - Depth 0.2 0.1 -Total Square Cm 102.85 55.08 -Wound/Ulcer Outcome Not Healed Not Healed -Ulcer Cleansing Rinsed/ Rinsed/ Irrigated with Irrigated with Saline Saline -Foul Odor after Cleansing No No -Bioengineered Tissue No No -Bleeding Controlled with Pressure Pressure -Treatment Response Procedure Procedure Tolerated Well Tolerated Well Pain Scale: 0-10 Numeric Is Patient Pain Free? Yes Yes Wound debrided: leg cluster Laterality: Right Type of Debridement: Excisional debridement Anesthesia Used: 4% Lidocaine Solution Depth: in the subcutaneous layer Percentage of wound debrided: 80 Instrument Used: #15 blade Tissue Removed: fibrous, devitalized subcutaneous, biofilm, slough Severity: Fat Layer Exposed Amount of bleeding with debridement: Mild Bleeding Controlled with: Pressure Patient tolerated procedure well - Additional Wound Wound debrided: leg Laterality: Left Type of Debridement: Excisional debridement Anesthesia Used: 4% Lidocaine Solution Depth: in the subcutaneous layer Percentage of wound debrided: 60 Instrument Used: #15 blade Tissue Removed: fibrous, devitalized subcutaneous, biofilm, slough Severity: Fat Layer Exposed Amount of bleeding with debridement: Mild Bleeding Controlled with: Pressure Patient tolerated procedure: Patient tolerated procedure well Assessment/Plan Active Problems Delayed wound healing (Chronic) Ulcer of left lower extremity with fat layer exposed (Chronic) Chronic ulcer of right leg with fat layer exposed (Chronic) Lymphedema of lower extremity (Chronic) Venous insufficiency (chronic) (peripheral) (Chronic) Malnutrition (Chronic) Assessment: Right leg ulcers with fat layer exposed. left leg ulcer with fat layer exposed. leg edema, lymphedema. malnutrition. venous insufficiency. delayed healing. Gait instability and continued fall risk. Nonadherence to treatment recommendations. 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 Debridement was performed as noted above and in the clinical panel (SQ) and selective to both legs to multiple sites. 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 It is noted her body habitus is limiting the results. To continue diuresis plan with her primary care physician; a refill for Lasix and potassium was provided. I advised her to resume use as previously advised. A referral was provided to Dr. Kunz and she started intervention; to continue as advised. Today, a multilayer later compression wrap [id number] was applied to the right lower extremity and gauze and light compression was applied to left lower extremity so she can enter into a shoe. Santyl was applied prior to the compression dressing. I recommended enzymatic debrider to improve the quality of the wound. Until she received this in the mail it is okay to use Aquacel. To continue biweekly visits with home health. . We discussed in depth the importance of edema control. To keep legs elevated above heart while resting. To avoid lying directly on the wound while seated or in bed. To avoid idle standing or sitting for prolonged time. To monitor for signs of infection. This is not noted today. To maintain a healthy diet to optimize healing. Lab work was also previously reviewed including CBC and CMP. It is noted she continues to work on obtaining either custom shoe or different extra-depth shoe that will accommodate her ankle-foot orthotic/bridges balance brace for the left lower extremity posterior tibialis tendinitis and dysfunction condition. RTC (wound center) in 1 week as scheduled or call sooner if she has questions or concerns.
== END 2017-10-09 23:59 ==
LOC: WC 13:30
PROVIDERS: Family Provider Internal Medicine; PCP Internal Medicine; Visit Provider Podiatrist
DX: E11.622 Type 2 diabetes mellitus with other skin ulcer (principal); E11.42 Type 2 diabetes mellitus with diabetic polyneuropathy; I89.0 Lymphedema, not elsewhere classified; L97.822 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chronic ulcer of other part of left lower leg with fat layer exposed; L97.812 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chronic ulcer of other part of right lower leg with fat layer exposed; I87.2 Venous insufficiency (chronic) (peripheral); R60.0 Localized edema; M13.88 Other specified arthritis, other site
CPT/HCPCS: 11042; 11045; 29581; 97602

== ENCOUNTER 2017-11-06 14:15 | Outpatient (RCR) | payer MEDICARE, OTHER, SELFPAY ==
[2017-10-10 00:26] VITALS: BP 148/72; PULSE 110; RESP 18; TEMP 35.8
[2017-10-30 11:33] VITALS: BP 164/69; PULSE 81; RESP 16; TEMP 36
--- NOTE | 2017-10-30 13:11 | PCM.WC.PN ---
Type of Wound Date of Service: 10/30/17 Chief Complaint: Leg ulcers and swelling. new left third toe ulcer leg ulcers. History of Wound: She is following up for right and left leg ulcerations that are chronic. There is new pain to her left third toe with callus formation. She asked for an evaluation today. She denies trauma. She has drilling of the toe. She wears a cam walker boot. She denies odor, loss of appetite, N/V/F/C/loss of appetite. She denies recent Lasix use. She was scheduled to follow-up for vascular venous intervention Dr. Kunz and has attended several sessions. She plans to go to her follow-up sessions as advised. She admits she will reconsider events wound care product application in the future if her drainage decreases and her swelling is better controlled. Progress of Wound: Stable. new left third toe ulcer - Physical Exam Vital Signs Temp Pulse Resp BP 96.8 F L 81 16 164/69 H 10/30/17 11:33 10/30/17 11:33 10/30/17 11:33 10/30/17 11:33 General: Alert, Oriented x3, Cooperative Extremities: No cyanosis, Capillary Refill Less than 3 Seconds, No Calf Tenderness - Negative Cassie and Benitez sign bilateral, Diminished Peripheral Pulses, Edema - Decreased bilateral lower extremities, Tenderness - Pain with manipulation bilateral legs and left toe Skin: Ulcer/ Wound - No purulence, no erythema, streaking, no odor, no infection. Upon callus debridement of the left third toe there is an ulcer. Peripheral skin peeling noted around the wound sites. The right legs are predominantly fibrous tissue in the left leg ulcers and toe ulcer has granular base. No hair noted bilateral lower extremities Wound Measurements and Assessment WC - Nurse 1 - General Ulcer Measurement Start: 10/30/17 11:33 Freq: Status: Active Protocol: Activity Type Activity Date Activity User E-Sign Co-Sign Detail Recorded Client Recorded Date Recorded By Document 10/30/17 11:33 MW [id number] 10/30/17 11:44 MW 10/30/17 11:33 Wound Center Nurse 1 [Ulcer Assessment] #4 L Lat LE cluster -Combined with other wound No -Current Size (cm) - Length 3.5 -Current Size (cm) - Width 4.4 -Current Size (cm) - Depth 0.3 -Total Square Cm 15.40 -Photo Taken No -Epithelialization None Present -Tunneling No -Undermining/Tunneling No -Circular Undermining No -Exudate Amt Medium (34-66%) -Exudate Type Serosanguineous -Wound Margin Distinct, Outline Attached -Granulation Amt Small (1-33%) -Granulation Quality Red -Slough/Fibrin Yes -Necrosis Amt Large (67-100%) -Necrotic Tissue Type Adherent Slough -Structure Exposed N/A -Texture (Vickie-wound Skin Appearance) Assessed Excoriation Localized Edema -Moisture (Vickie-wound Skin Appearance Assessed ) Maceration -Color (Vickie-wound Skin Appearance) Assessed Rubor -Temperature (Vickie-wound Skin No Abnormality Appearance) (Pt Warm) -Tenderness on Palpation (Vickie-wound No Skin Appearance) -Ulcer Cleansing Rinsed/ Irrigated with Saline -Foul Odor after Cleansing No -Anesthetic Used 4% Lidocaine Solution #3- RT LE CLUSTER -Combined with other wound No -Current Size (cm) - Length 9.0 -Current Size (cm) - Width 16.5 -Current Size (cm) - Depth 0.3 -Total Square Cm 148.50 -Photo Taken No -Epithelialization None Present -Tunneling No -Undermining/Tunneling No -Circular Undermining No -Exudate Amt Medium (34-66%) -Exudate Type Serosanguineous -Wound Margin Distinct, Outline Attached -Granulation Amt Small (1-33%) -Granulation Quality Red -Slough/Fibrin Yes -Necrosis Amt Large (67-100%) -Necrotic Tissue Type Adherent Slough -Structure Exposed N/A -Texture (Vickie-wound Skin Appearance) Assessed Excoriation Localized Edema -Moisture (Vickie-wound Skin Appearance Assessed ) Weeping -Color (Vickie-wound Skin Appearance) Assessed Rubor -Temperature (Vickie-wound Skin No Abnormality Appearance) (Pt Warm) -Tenderness on Palpation (Vickie-wound No Skin Appearance) -Ulcer Cleansing Rinsed/ Irrigated with Saline -Foul Odor after Cleansing No -Anesthetic Used 4% Lidocaine Solution [Edema Assessment] -Lower Limb Edema Present Yes -Right Calf (cm) 50.0 -Right Ankle (cm) 26.0 -Left Calf (cm) 50.0 -Left Ankle (cm) 25.4 WC - Nurse 2 - General Ulcer CM Notes Start: 10/30/17 11:33 Freq: Status: Active Protocol: Activity Type Activity Date Activity User E-Sign Co-Sign Detail Recorded Client Recorded Date Recorded By Document 10/30/17 12:08 [id number] 10/30/17 12:20 10/30/17 12:08 Wound Center Nurse 2 [Procedure/Treatment] #7 left 3rd toe -Time 12:11 -Correct Patient Yes -Correct Side, Site, Position Yes -Correct Procedure Yes -Procedure Performed Yes -Type of Procedure Debridement -Clinical Debridement Subcutaneous -Post Debridement Size (cm) - Length 0.2 -Post Debridement Size (cm) - Width 0.3 -Post Debridement Size (cm) - Depth 0.1 -Total Square Cm 0.06 -Wound/Ulcer Outcome Not Healed -Ulcer Cleansing Rinsed/ Irrigated with Saline -Foul Odor after Cleansing No -Bioengineered Tissue No -Topical Lidocaine (%) 4 -Bleeding Controlled with Pressure -Treatment Response Procedure Tolerated Well #4 L Lat LE cluster -Time 12:09 -Correct Patient Yes -Correct Side, Site, Position Yes -Correct Procedure Yes -Procedure Performed Yes -Type of Procedure Debridement -Clinical Debridement Subcutaneous -Post Debridement Size (cm) - Length 3.6 -Post Debridement Size (cm) - Width 4.4 -Post Debridement Size (cm) - Depth 0.3 -Total Square Cm 15.84 -Wound/Ulcer Outcome Not Healed -Ulcer Cleansing Rinsed/ Irrigated with Saline -Foul Odor after Cleansing No -Bioengineered Tissue No -Topical Lidocaine (%) 4 -Bleeding Controlled with Pressure -Treatment Response Procedure Tolerated Well #3- RT LE CLUSTER -Time 12:10 -Correct Patient Yes -Correct Side, Site, Position Yes -Correct Procedure Yes -Procedure Performed Yes -Type of Procedure Debridement -Clinical Debridement Subcutaneous -Post Debridement Size (cm) - Length 9.1 -Post Debridement Size (cm) - Width 16.5 -Post Debridement Size (cm) - Depth 0.3 -Total Square Cm 150.15 -Wound/Ulcer Outcome Not Healed -Ulcer Cleansing Rinsed/ Irrigated with Saline -Foul Odor after Cleansing No -Bioengineered Tissue No -Topical Lidocaine (%) 4 -Bleeding Controlled with Pressure -Treatment Response Procedure Tolerated Well [See Physician Procedure note for Specifics] Pain Scale: 0-10 Numeric [Pain] -Is Patient Pain Free? Yes Musculoskeletal: No Tenderness to Palpation of Joints or Extremities, Muscle Wasting, Tenderness - Wound manipulation, - - compartments bilateral lower extremity in the ER soft Neurological: Sensory exam intact to light touch and pain Psych/Mental Status: Normal Affect, Appropriate Debridement Note Post-Debridement Measurements/Treatment WC - Nurse 2 - General Ulcer CM Notes Start: 10/30/17 11:33 Freq: Status: Active Protocol: Activity Type Activity Date Activity User E-Sign Co-Sign Detail Recorded Client Recorded Date Recorded By Document 10/30/17 12:08 [id number] 10/30/17 12:20 10/30/17 12:08 Wound Center Nurse 2 #7 left 3rd toe -Time 12:11 -Correct Patient Yes -Correct Side, Site, Position Yes -Correct Procedure Yes -Procedure Performed Yes -Type of Procedure Debridement -Clinical Debridement Subcutaneous -Post Debridement Size (cm) - Length 0.2 -Post Debridement Size (cm) - Width 0.3 -Post Debridement Size (cm) - Depth 0.1 -Total Square Cm 0.06 -Wound/Ulcer Outcome Not Healed -Ulcer Cleansing Rinsed/ Irrigated with Saline -Foul Odor after Cleansing No -Bioengineered Tissue No -Topical Lidocaine (%) 4 -Bleeding Controlled with Pressure -Treatment Response Procedure Tolerated Well #4 L Lat LE cluster -Time 12:09 -Correct Patient Yes -Correct Side, Site, Position Yes -Correct Procedure Yes -Procedure Performed Yes -Type of Procedure Debridement -Clinical Debridement Subcutaneous -Post Debridement Size (cm) - Length 3.6 -Post Debridement Size (cm) - Width 4.4 -Post Debridement Size (cm) - Depth 0.3 -Total Square Cm 15.84 -Wound/Ulcer Outcome Not Healed -Ulcer Cleansing Rinsed/ Irrigated with Saline -Foul Odor after Cleansing No -Bioengineered Tissue No -Topical Lidocaine (%) 4 -Bleeding Controlled with Pressure -Treatment Response Procedure Tolerated Well #3- RT LE CLUSTER -Time 12:10 -Correct Patient Yes -Correct Side, Site, Position Yes -Correct Procedure Yes -Procedure Performed Yes -Type of Procedure Debridement -Clinical Debridement Subcutaneous -Post Debridement Size (cm) - Length 9.1 -Post Debridement Size (cm) - Width 16.5 -Post Debridement Size (cm) - Depth 0.3 -Total Square Cm 150.15 -Wound/Ulcer Outcome Not Healed -Ulcer Cleansing Rinsed/ Irrigated with Saline -Foul Odor after Cleansing No -Bioengineered Tissue No -Topical Lidocaine (%) 4 -Bleeding Controlled with Pressure -Treatment Response Procedure Tolerated Well Pain Scale: 0-10 Numeric Is Patient Pain Free? Yes Wound debrided: leg Laterality: Left Type of Debridement: Excisional debridement Anesthesia Used: 4% Lidocaine Solution Depth: in the subcutaneous layer Percentage of wound debrided: 100 Instrument Used: #15 blade Tissue Removed: I reviewed her case and ongoing treatment plan. Debridement was performed Severity: Fat Layer Exposed Amount of bleeding with debridement: Mild Bleeding Controlled with: Pressure Patient tolerated procedure well - Additional Wound Wound debrided: leg Laterality: Left Type of Debridement: Excisional debridement Anesthesia Used: 4% Lidocaine Solution Depth: Down to and including healthy tissue Percentage of wound debrided: 100 Instrument Used: #15 blade Tissue Removed: fibrous, devitalized subcutaneous tissue, biofilm, slough Severity: Fat Layer Exposed Amount of bleeding with debridement: Mild Bleeding Controlled with: Pressure Patient tolerated procedure: Patient tolerated procedure well - Additional Wound Wound debrided: distal third toe Laterality: Left Type of Debridement: Excisional debridement Anesthesia Used: 4% Lidocaine Solution Depth: in the subcutaneous layer Percentage of wound debrided: 100 Instrument Used: #15 blade Tissue Removed: fibrous, devitalized subcutaneous tissue, biofilm, slough Severity: Fat Layer Exposed Amount of bleeding with debridement: Mild Bleeding Controlled with: Pressure Patient tolerated procedure: Patient tolerated procedure well Assessment/Plan Assessment: Right leg ulcers with fat layer exposed. left leg ulcer with fat layer exposed. Left third toe ulcer with fat layer exposed. leg edema, lymphedema. malnutrition. venous insufficiency. delayed healing. Gait instability and continued fall risk. Nonadherence to treatment recommendations. Left third hammertoe. 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 Debridement was performed as noted above and in the clinical panel (SQ) and selective to both legs to multiple sites. Callus to her left third toe is also debrided and there is an ulcer noted. This is also documented in the clinical panel. 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 It is noted her body habitus is limiting the results. To continue diuresis plan with her primary care physician; a refill for Lasix and potassium was provided. I advised her to resume use as previously advised. A referral was provided to Dr. Kunz and she started intervention; to continue as advised. She already had her intervention completed and had scheduled follow-up. Today, a multilayer later compression wrap [id number] was applied to the right lower extremity and gauze and light compression was applied to left lower extremity so she can enter into a shoe. She could not get enzymatic debrider, Gianluca, approved. To continue with [facility] at this time. Continue with home health. . We discussed in depth the importance of edema control. To keep legs elevated above heart while resting. Upon controlled edema and decreased fibrous tissue to the right leg in particular, advanced wound care product application will be considered again. She refuses at this time. To avoid lying directly on the wound while seated or in bed. To avoid idle standing or sitting for prolonged time. To monitor for signs of infection. This is not noted today. To maintain a healthy diet to optimize healing. It is noted she continues to work on obtaining either custom shoe or different extra-depth shoe that will accommodate her ankle-foot orthotic/bridges balance brace for the left lower extremity posterior tibialis tendinitis and dysfunction condition. Her foot deformity is noted. Offloading for the left third toe ulcer site was performed by cutting a hole out of the bottom of the cam walker boot to correspond with the ulcer site. RTC (wound center) in 1 week as scheduled or call sooner if she has questions or concerns.
[2017-11-06 14:12] VITALS: BP 142/74; PULSE 110; RESP 20; TEMP 37.1
--- NOTE | 2017-11-06 16:57 | PN.PCM_ITS ---
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 Status: Chronic Current Visit: No Code(s): L97.912 - 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chronic ulcer of unspecified part of right lower leg with fat layer exposed (3) Delayed wound healing Status: Chronic Current Visit: Yes Code(s): T14.8 - Other injury of unspecified body region (4) Walking difficulty due to ankle and foot Status: Chronic Current Visit: Yes Code(s): R26.2 - Difficulty in walking, not elsewhere classified (5) Lymphedema of lower extremity Status: Chronic Current Visit: Yes Qualifiers: Laterality: bilateral Qualified Code(s): I89.0 - Lymphedema, not elsewhere classified Code(s): I89.0 - Lymphedema, not elsewhere classified (6) Venous insufficiency (chronic) (peripheral) Status: Chronic Current Visit: Yes Type of Wound Date of Service: 11/06/17 Chief Complaint: Leg ulcers and swelling. left third toe ulcer leg ulcers. History of Wound: She is following up for right and left leg ulcerations that have delayed healing. She denies toe pain or further drainage. She wears a cam walker boot. She denies odor, loss of appetite, N/V/F/C/loss of appetite. She was scheduled to follow-up for vascular venous intervention Dr. Kunz and has attended several sessions. She plans to go to her follow-up sessions as advised. She admits she will reconsider events wound care product application in the future if her drainage decreases and her swelling is better controlled. She is having pain at night and requests a tramadol refill that she uses sparingly. Progress of Wound: Stable. Healed left third toe ulcer - Physical Exam Vital Signs Temp Pulse Resp BP 98.7 F 110 H 20 H 142/74 H 11/06/17 14:12 11/06/17 14:12 11/06/17 14:12 11/06/17 14:12 General: Alert, Oriented x3, Cooperative HEENT: Atraumatic Extremities: No cyanosis, Capillary Refill Less than 3 Seconds, No Calf Tenderness - Negative Cassie and Benitez sign bilateral, Diminished Peripheral Pulses, Edema Skin: Ulcer/ Wound - No purulence, no erythema, streaking, no odor, no infection bilateral. The wounds are granular and fibrous. Skin is atrophic and there is no hair present bilateral. Full epithelialization is noted to the left third distal toe previous ulcer site which did had some dried hematogenous drainage initially Wound Measurements and Assessment WC - Nurse 1 - General Ulcer Measurement Start: 10/30/17 11:33 Freq: Status: Active Protocol: Activity Type Activity Date Activity User E-Sign Co-Sign Detail Recorded Client Recorded Date Recorded By Document 11/06/17 14:12 DL [id number] 11/06/17 14:32 DL 11/06/17 14:12 Wound Center Nurse 1 [Ulcer Assessment] #7 left 3rd toe -Current Size (cm) - Length 0.7 -Current Size (cm) - Width 0.4 -Current Size (cm) - Depth 0.1 -Total Square Cm 0.28 -Photo Taken No -Exudate Amt None Present (0 %) -Wound Margin Thickened -Granulation Amt None Present (0 %) -Necrosis Amt Small (1-33%) -Necrotic Tissue Type Adherent Slough -Structure Exposed N/A -Texture (Vickie-wound Skin Appearance) No Abnormality -Moisture (Vickie-wound Skin Appearance Dry/Scaly ) -Color (Vickie-wound Skin Appearance) No Abnormality -Temperature (Vickie-wound Skin No Abnormality Appearance) (Pt Warm) -Ulcer Cleansing Wound Cleanser -Foul Odor after Cleansing No -Anesthetic Used 4% Lidocaine Solution #4 L Lat LE cluster -Current Size (cm) - Length 10.8 -Current Size (cm) - Width 8.8 -Current Size (cm) - Depth 0.1 -Total Square Cm 95.04 -Photo Taken No -Exudate Amt Medium (34-66%) -Exudate Type Serosanguineous -Wound Margin Indistinct, Non -Visible -Granulation Amt Medium (34-66%) -Granulation Quality [place] -Necrosis Amt Medium (34-66%) -Necrotic Tissue Type Adherent Slough -Structure Exposed N/A -Texture (Vickie-wound Skin Appearance) Excoriation -Moisture (Vickie-wound Skin Appearance Maceration ) -Color (Vickie-wound Skin Appearance) Erythema Rubor -Temperature (Vickie-wound Skin No Abnormality Appearance) (Pt Warm) -Tenderness on Palpation (Vickie-wound Yes Skin Appearance) -Ulcer Cleansing Wound Cleanser -Foul Odor after Cleansing No -Anesthetic Used 4% Lidocaine Solution #3- RT LE CLUSTER -Current Size (cm) - Length 9.8 -Current Size (cm) - Width 16.8 -Current Size (cm) - Depth 0.2 -Total Square Cm 164.64 -Photo Taken No -Exudate Amt Large (67-100%) -Exudate Type Serosanguineous -Wound Margin Indistinct, Non -Visible -Granulation Amt Medium (34-66%) -Granulation Quality Red -Necrosis Amt Medium (34-66%) -Necrotic Tissue Type Adherent Slough -Structure Exposed N/A -Texture (Vickie-wound Skin Appearance) Excoriation -Moisture (Vickie-wound Skin Appearance Maceration ) -Color (Vickie-wound Skin Appearance) Erythema Hemosiderin Staining Rubor -Tenderness on Palpation (Vickie-wound Yes Skin Appearance) -Ulcer Cleansing Wound Cleanser -Foul Odor after Cleansing No -Anesthetic Used 4% Lidocaine Solution [Edema Assessment] -Right Calf (cm) 53 -Right Ankle (cm) 25 -Left Calf (cm) 49 -Left Ankle (cm) 24 WC - Nurse 2 - General Ulcer CM Notes Start: 10/30/17 11:33 Freq: Status: Active Protocol: Activity Type Activity Date Activity User E-Sign Co-Sign Detail Recorded Client Recorded Date Recorded By Document 11/06/17 15:11 PARVIZ [id number] 11/06/17 15:14 PARVIZ 11/06/17 15:11 Wound Center Nurse 2 [Procedure/Treatment] #7 left 3rd toe -Correct Patient No -Correct Side, Site, Position No -Correct Procedure No -Procedure Performed No -Post Debridement Size (cm) - Length 0 -Post Debridement Size (cm) - Width 0 -Post Debridement Size (cm) - Depth 0 -Total Square Cm 0 -Wound/Ulcer Outcome Healed- Epithelialized #4 L Lat LE cluster -Time 15:11 -Correct Patient Yes -Correct Side, Site, Position Yes -Correct Procedure Yes -Procedure Performed Yes -Type of Procedure Debridement -Clinical Debridement Subcutaneous -Post Debridement Size (cm) - Length 10.8 -Post Debridement Size (cm) - Width 8.9 -Post Debridement Size (cm) - Depth 0.1 -Total Square Cm 96.12 -Wound/Ulcer Outcome Not Healed -Ulcer Cleansing Rinsed/ Irrigated with Saline -Foul Odor after Cleansing No -Bioengineered Tissue No -Bleeding Controlled with Pressure -Other 38.45cm2 debrided -Treatment Response Procedure Tolerated Well #3- RT LE CLUSTER -Time 15:12 -Correct Patient Yes -Correct Side, Site, Position Yes -Correct Procedure Yes -Procedure Performed Yes -Type of Procedure Debridement -Clinical Debridement Subcutaneous -Post Debridement Size (cm) - Length 9.8 -Post Debridement Size (cm) - Width 16.8 -Post Debridement Size (cm) - Depth 0.2 -Total Square Cm 164.64 -Wound/Ulcer Outcome Not Healed -Ulcer Cleansing Rinsed/ Irrigated with Saline -Foul Odor after Cleansing No -Bioengineered Tissue No -Bleeding Controlled with Pressure -Other 82.32cm2 debrided. -Treatment Response Procedure Tolerated Well [See Physician Procedure note for Specifics] Pain Scale: 0-10 Numeric [Pain] -Is Patient Pain Free? Yes Musculoskeletal: No Tenderness to Palpation of Joints or Extremities, Muscle Wasting, - - Dorsal contraction bilateral lower extremities and decreased medial longitudinal arch and valgus hindfoot noted. Compartments of lower extremity remain soft and there is no crepitus on palpation bilateral Neurological: - - Lack of epicritic sensation to light touch bilateral extremities Psych/Mental Status: Normal Affect, Appropriate Debridement Note Post-Debridement Measurements/Treatment WC - Nurse 2 - General Ulcer CM Notes Start: 10/30/17 11:33 Freq: Status: Active Protocol: Activity Type Activity Date Activity User E-Sign Co-Sign Detail Recorded Client Recorded Date Recorded By Document 10/30/17 12:08 [id number] 10/30/17 12:20 Document 11/06/17 15:11 [id number] 11/06/17 15:14 10/30/17 11/06/17 12:08 15:11 Wound Center Nurse 2 #7 left 3rd toe -Time 12:11 -Correct Patient Yes No -Correct Side, Site, Position Yes No -Correct Procedure Yes No -Procedure Performed Yes No -Type of Procedure Debridement -Clinical Debridement Subcutaneous -Post Debridement Size (cm) - Length 0.2 0 -Post Debridement Size (cm) - Width 0.3 0 -Post Debridement Size (cm) - Depth 0.1 0 -Total Square Cm 0.06 0 -Wound/Ulcer Outcome Not Healed Healed- Epithelialized -Ulcer Cleansing Rinsed/ Irrigated with Saline -Foul Odor after Cleansing No -Bioengineered Tissue No -Topical Lidocaine (%) 4 -Bleeding Controlled with Pressure -Treatment Response Procedure Tolerated Well #4 L Lat LE cluster -Time 12:09 15:11 -Correct Patient Yes Yes -Correct Side, Site, Position Yes Yes -Correct Procedure Yes Yes -Procedure Performed Yes Yes -Type of Procedure Debridement Debridement -Clinical Debridement Subcutaneous Subcutaneous -Post Debridement Size (cm) - Length 3.6 10.8 -Post Debridement Size (cm) - Width 4.4 8.9 -Post Debridement Size (cm) - Depth 0.3 0.1 -Total Square Cm 15.84 96.12 -Wound/Ulcer Outcome Not Healed Not Healed -Ulcer Cleansing Rinsed/ Rinsed/ Irrigated with Irrigated with Saline Saline -Foul Odor after Cleansing No No -Bioengineered Tissue No No -Topical Lidocaine (%) 4 -Bleeding Controlled with Pressure Pressure -Other 38.45cm2 debrided -Treatment Response Procedure Procedure Tolerated Well Tolerated Well #3- RT LE CLUSTER -Time 12:10 15:12 -Correct Patient Yes Yes -Correct Side, Site, Position Yes Yes -Correct Procedure Yes Yes -Procedure Performed Yes Yes -Type of Procedure Debridement Debridement -Clinical Debridement Subcutaneous Subcutaneous -Post Debridement Size (cm) - Length 9.1 9.8 -Post Debridement Size (cm) - Width 16.5 16.8 -Post Debridement Size (cm) - Depth 0.3 0.2 -Total Square Cm 150.15 164.64 -Wound/Ulcer Outcome Not Healed Not Healed -Ulcer Cleansing Rinsed/ Rinsed/ Irrigated with Irrigated with Saline Saline -Foul Odor after Cleansing No No -Bioengineered Tissue No No -Topical Lidocaine (%) 4 -Bleeding Controlled with Pressure Pressure -Other 82.32cm2 debrided. -Treatment Response Procedure Procedure Tolerated Well Tolerated Well Pain Scale: 0-10 Numeric Is Patient Pain Free? Yes Yes Wound debrided: leg cluster Laterality: Right Wound Grade/Stage: grade 1 Type of Debridement: Excisional debridement Anesthesia Used: 4% Lidocaine Solution Depth: in the subcutaneous layer Percentage of wound debrided: 50 Instrument Used: #15 blade Tissue Removed: fibrous, devitalized subcutaneous, biofilm, slough Severity: Fat Layer Exposed Amount of bleeding with debridement: Mild Bleeding Controlled with: Pressure Patient tolerated procedure well - Additional Wound Wound debrided: leg Laterality: Left Wound Grade/Stage: grade 1 Type of Debridement: Excisional debridement Anesthesia Used: 4% Lidocaine Solution Depth: in the subcutaneous layer Percentage of wound debrided: 40 Instrument Used: #15 blade Tissue Removed: fibrous, devitalized subcutaneous, biofilm, slough Severity: Fat Layer Exposed Amount of bleeding with debridement: Mild Bleeding Controlled with: Pressure Patient tolerated procedure: Patient tolerated procedure well Assessment/Plan Active Problems Delayed wound healing (Chronic) Walking difficulty due to ankle and foot (Chronic) Ulcer of left lower extremity with fat layer exposed (Chronic) Lymphedema of lower extremity (Chronic) Venous insufficiency (chronic) (peripheral) (Chronic) Assessment: Right leg ulcers with fat layer exposed. left leg ulcer with fat layer exposed. Left third toe ulcer healed. leg edema, lymphedema. malnutrition. venous insufficiency. delayed healing. Gait instability and continued fall risk. Nonadherence to treatment recommendations. Left third hammertoe. 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 Debridement was performed as noted above and in the clinical panel (SQ) and selective to both legs to multiple sites. Her toe ulcer site has full epithelialization is healed today. She is reassured there are no signs of infection. 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 It is noted her body habitus is limiting the results. To continue diuresis plan with her primary care physician; a refill for Lasix and potassium was provided. I advised her to resume use as previously advised. A referral was provided to Dr. Kunz and she started intervention; to continue as advised. She already had her intervention completed and had scheduled follow-up. Today, a multilayer later compression wrap [id number] was applied to the right lower extremity and gauze and light compression was applied to left lower extremity so she can enter into a shoe. She could not get enzymatic debrider, Santyl, approved. To continue with hydrogel and Adaptic at this time. The Aquacel cause her discomfort and she refuses purifier other advanced skin care products continue with home health. . We discussed in depth the importance of edema control. To keep legs elevated above heart while resting. Upon controlled edema and decreased fibrous tissue to the right leg in particular, advanced wound care product application will be considered again. She refuses at this time. To avoid lying directly on the wound while seated or in bed. To avoid idle standing or sitting for prolonged time. To monitor for signs of infection. This is not noted today. RTC (wound center) in 1 week as scheduled or call sooner if she has questions or concerns.
== END 2017-11-09 23:59 ==
LOC: WC 14:15
PROVIDERS: Family Provider Internal Medicine; PCP Internal Medicine; Visit Provider Podiatrist
DX: E11.622 Type 2 diabetes mellitus with other skin ulcer (principal); E11.42 Type 2 diabetes mellitus with diabetic polyneuropathy; I89.0 Lymphedema, not elsewhere classified; L97.822 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chronic ulcer of other part of left lower leg with fat layer exposed; M79.89 Other specified soft tissue disorders; L97.522 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chronic ulcer of other part of left foot with fat layer exposed; E11.621 Type 2 diabetes mellitus with foot ulcer; M20.42 Other hammer toe(s) (acquired), left foot; R26.2 Difficulty in walking, not elsewhere classified; E11.51 Type 2 diabetes mellitus with diabetic peripheral angiopathy without gangrene
CPT/HCPCS: 11042; 11045; 29581

== ENCOUNTER 2017-12-04 13:30 | Outpatient (RCR) | payer MEDICARE, OTHER, SELFPAY ==
[2017-11-10 00:27] VITALS: BP 148/72; PULSE 110; RESP 20; TEMP 37.1
[2017-11-20 13:53] VITALS: BP 160/56; PULSE 85; RESP 18; TEMP 36.3
--- NOTE | 2017-11-20 17:09 | PN.PCM_ITS ---
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 layer exposed Status: Chronic Current Visit: Yes Code(s): L97.912 - 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chronic ulcer of unspecified part of right lower leg with fat layer exposed (2) Ulcer of left lower extremity with fat layer exposed Status: Chronic Current Visit: Yes Code(s): L97.922 - 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chronic ulcer of unspecified part of left lower leg with fat layer exposed (3) Delayed wound healing Status: Chronic Current Visit: Yes Code(s): T14.8 - Other injury of unspecified body region (4) Lymphedema of lower extremity Status: Chronic Current Visit: Yes Qualifiers: Code(s): I89.0 - Lymphedema, not elsewhere classified (5) Venous insufficiency (chronic) (peripheral) Status: Chronic Current Visit: Yes (6) Malnutrition Status: Chronic Current Visit: Yes Code(s): E46 - Unspecified protein- calorie malnutrition (7) Edema leg Status: Chronic Current Visit: Yes Code(s): R60.0 - Localized edema Type of Wound Date of Service: 11/20/17 Chief Complaint: Leg ulcers and swelling. left third toe ulcer leg ulcers. History of Wound: She is following up for right and left leg ulcerations that have delayed healing. She denies toe pain or further drainage. She wears a cam walker boot. She denies odor, loss of appetite, N/V/F/C/loss of appetite. She was scheduled to follow-up for vascular venous intervention Dr. Kunz and has attended several intervention venous sessions. She she had to reschedule her Saturday follow-up because she was was not able to transport there. She admits she will reconsider advanced wound care product application in the future if her drainage decreases and her swelling is better controlled. She is not able to use her compression dressings due to discomfort. She is not able to take Lasix as recommended due to urination frequency; she already has incontinence. She is struggling with all of her doctor appointments he has family has to help her. She is unable to attend visits safely on her own. She relates her Parkinson's is worsening and this makes simple tasks difficult. Progress of Wound: Stable. Increased leg swelling - Physical Exam Vital Signs Temp Pulse Resp BP 97.3 F L 85 18 160/56 H 11/20/17 13:53 11/20/17 13:53 11/20/17 13:53 11/20/17 13:53 General: Alert, Oriented x3, Cooperative Extremities: No cyanosis, Capillary Refill Less than 3 Seconds, No Calf Tenderness - Negative Cassie and Benitez sign bilateral, Diminished Peripheral Pulses, Edema - Bilateral lower extremities with increased hyperpigmentation and increased leg circumference Skin: Ulcer/ Wound - No purulence, no erythema, no streaking, no odor, no necrosis, no acute signs of infection bilateral. The wound beds are fibrous and chronic bilateral. Her skin is atrophic and hairless., - - The wounds are painful she is not tolerating debridement or wound palpation Wound Measurements and Assessment WC - Nurse 1 - General Ulcer Measurement Start: 11/15/17 15:02 Freq: Status: Active Protocol: Activity Type Activity Date Activity User E-Sign Co-Sign Detail Recorded Client Recorded Date Recorded By Document 11/20/17 13:53 MW [id number] 11/20/17 14:16 MW 11/20/17 13:53 Wound Center Nurse 1 [Ulcer Assessment] #4 L Lat LE cluster -Combined with other wound No -Current Size (cm) - Length 6.5 -Current Size (cm) - Width 8.0 -Current Size (cm) - Depth 0.1 -Total Square Cm 52.00 -Photo Taken No -Epithelialization None Present -Tunneling No -Undermining/Tunneling No -Circular Undermining No -Exudate Amt Large (67-100%) -Exudate Type Serosanguineous -Wound Margin Flat & Intact -Granulation Amt Small (1-33%) -Granulation Quality Red -Slough/Fibrin Yes -Necrosis Amt Large (67-100%) -Necrotic Tissue Type Adherent Slough -Structure Exposed N/A -Texture (Vickie-wound Skin Appearance) Assessed Friable Localized Edema Scarring -Moisture (Vickie-wound Skin Appearance Assessed ) Weeping Dry/Scaly -Color (Vickie-wound Skin Appearance) Assessed Hemosiderin Staining Rubor -Temperature (Vickie-wound Skin No Abnormality Appearance) (Pt Warm) -Tenderness on Palpation (Vickie-wound Yes Skin Appearance) -Ulcer Cleansing Rinsed/ Irrigated with Saline -Foul Odor after Cleansing No -Anesthetic Used 4% Lidocaine Solution #3- RT LE CLUSTER -Combined with other wound No -Current Size (cm) - Length 8.0 -Current Size (cm) - Width 25.5 -Current Size (cm) - Depth 0.2 -Total Square Cm 204.00 -Photo Taken No -Epithelialization None Present -Tunneling No -Undermining/Tunneling No -Circular Undermining No -Exudate Amt Large (67-100%) -Exudate Type Serosanguineous -Wound Margin Flat & Intact -Granulation Amt Small (1-33%) -Granulation Quality Red -Slough/Fibrin Yes -Necrosis Amt Large (67-100%) -Necrotic Tissue Type Adherent Slough -Structure Exposed N/A -Texture (Vickie-wound Skin Appearance) Assessed Friable Localized Edema -Moisture (Vickie-wound Skin Appearance Assessed ) Weeping Dry/Scaly -Color (Vickie-wound Skin Appearance) Assessed Hemosiderin Staining Rubor -Temperature (Vickie-wound Skin No Abnormality Appearance) (Pt Warm) -Tenderness on Palpation (Vickie-wound Yes Skin Appearance) -Ulcer Cleansing Rinsed/ Irrigated with Saline -Foul Odor after Cleansing No -Anesthetic Used 4% Lidocaine Solution [Edema Assessment] -Lower Limb Edema Present Yes -Right Calf (cm) 55.0 -Right Ankle (cm) 26.5 -Left Calf (cm) 50.0 -Left Ankle (cm) 25.2 WC - Nurse 2 - General Ulcer CM Notes Start: 11/15/17 15:02 Freq: Status: Active Protocol: Activity Type Activity Date Activity User E-Sign Co-Sign Detail Recorded Client Recorded Date Recorded By Document 11/20/17 14:45 [id number] 11/20/17 14:48 11/20/17 14:45 Wound Center Nurse 2 [Procedure/Treatment] #4 L Lat LE cluster -Time 14:45 -Correct Patient Yes -Correct Side, Site, Position Yes -Correct Procedure Yes -Procedure Performed Yes -Type of Procedure Debridement -Clinical Debridement Selective -Post Debridement Size (cm) - Length 6.5 -Post Debridement Size (cm) - Width 8.0 -Post Debridement Size (cm) - Depth 0.1 -Total Square Cm 52.00 -Wound/Ulcer Outcome Not Healed -Ulcer Cleansing Rinsed/ Irrigated with Saline -Foul Odor after Cleansing No -Bioengineered Tissue No -Topical Lidocaine (%) 4 -Bleeding Controlled with Pressure -Treatment Response Procedure Tolerated Well #3- RT LE CLUSTER -Time 14:47 -Correct Patient Yes -Correct Side, Site, Position Yes -Correct Procedure Yes -Procedure Performed Yes -Type of Procedure Debridement -Clinical Debridement Selective -Post Debridement Size (cm) - Length 8.0 -Post Debridement Size (cm) - Width 25.5 -Post Debridement Size (cm) - Depth 0.2 -Total Square Cm 204.00 -Wound/Ulcer Outcome Not Healed -Ulcer Cleansing Rinsed/ Irrigated with Saline -Foul Odor after Cleansing No -Bioengineered Tissue No -Topical Lidocaine (%) 4 -Bleeding Controlled with Pressure -Treatment Response Procedure Tolerated Well [See Physician Procedure note for Specifics] Pain Scale: 0-10 Numeric [Pain] -Is Patient Pain Free? Yes Musculoskeletal: No Tenderness to Palpation of Joints or Extremities, Muscle Wasting, - - The compartments are soft bilateral Neurological: Sensory exam intact to light touch and pain, - Psych/Mental Status: Normal Affect, Appropriate Debridement Note Post-Debridement Measurements/Treatment WC - Nurse 2 - General Ulcer CM Notes Start: 11/15/17 15:02 Freq: Status: Active Protocol: Activity Type Activity Date Activity User E-Sign Co-Sign Detail Recorded Client Recorded Date Recorded By Document 11/20/17 14:45 [email or web address] 11/20/17 14:48 TM 11/20/17 14:45 Wound Center Nurse 2 #4 L Lat LE cluster -Time 14:45 -Correct Patient Yes -Correct Side, Site, Position Yes -Correct Procedure Yes -Procedure Performed Yes -Type of Procedure Debridement -Clinical Debridement Selective -Post Debridement Size (cm) - Length 6.5 -Post Debridement Size (cm) - Width 8.0 -Post Debridement Size (cm) - Depth 0.1 -Total Square Cm 52.00 -Wound/Ulcer Outcome Not Healed -Ulcer Cleansing Rinsed/ Irrigated with Saline -Foul Odor after Cleansing No -Bioengineered Tissue No -Topical Lidocaine (%) 4 -Bleeding Controlled with Pressure -Treatment Response Procedure Tolerated Well #3- RT LE CLUSTER -Time 14:47 -Correct Patient Yes -Correct Side, Site, Position Yes -Correct Procedure Yes -Procedure Performed Yes -Type of Procedure Debridement -Clinical Debridement Selective -Post Debridement Size (cm) - Length 8.0 -Post Debridement Size (cm) - Width 25.5 -Post Debridement Size (cm) - Depth 0.2 -Total Square Cm 204.00 -Wound/Ulcer Outcome Not Healed -Ulcer Cleansing Rinsed/ Irrigated with Saline -Foul Odor after Cleansing No -Bioengineered Tissue No -Topical Lidocaine (%) 4 -Bleeding Controlled with Pressure -Treatment Response Procedure Tolerated Well Pain Scale: 0-10 Numeric Is Patient Pain Free? Yes Wound debrided: leg Laterality: Right Type of Debridement: Selective debridement Anesthesia Used: 4% Lidocaine Solution Depth: Down to and including healthy tissue Percentage of wound debrided: 100 Instrument Used: 5mm curette Tissue Removed: fibrous, devitalized subcutaneous, biofilm, slough Severity: Fat Layer Exposed Amount of bleeding with debridement: Mild Bleeding Controlled with: Pressure Patient tolerated procedure well - Additional Wound Wound debrided: leg Laterality: Left Type of Debridement: Excisional debridement Anesthesia Used: 4% Lidocaine Solution Depth: in the subcutaneous layer Percentage of wound debrided: 100 Instrument Used: 5mm curette Tissue Removed: fibrous, devitalized subcutaneous, biofilm, slough Severity: Fat Layer Exposed Amount of bleeding with debridement: Mild Bleeding Controlled with: Pressure Patient tolerated procedure: Patient tolerated procedure well Assessment/Plan Active Problems Ulcer of left lower extremity with fat layer exposed (Chronic) Delayed wound healing (Chronic) Lymphedema of lower extremity (Chronic) Venous insufficiency (chronic) (peripheral) (Chronic) 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ulcer of right lower extremity with fat layer exposed (Chronic) Malnutrition (Chronic) Edema leg (Chronic) Assessment: Right leg ulcers with fat layer exposed. left leg ulcer with fat layer exposed. leg edema, lymphedema. malnutrition. venous insufficiency. delayed healing. Gait instability and continued fall risk. Nonadherence to treatment recommendations Plan: I reviewed her case and ongoing treatment plan. Debridement was performed as noted above and in the clinical panel (selective). 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 It is noted her body habitus is limiting the results. To continue diuresis plan with her primary care physician; she has not been able to start this yet. A referral was provided to Dr. Kunz and she started intervention; to continue as advised. She already had her intervention completed and had scheduled follow-up. Today, a multilayer later compression wrap [id number] was applied to the right lower extremity and gauze and light compression was applied to left lower extremity so she can enter into a shoe. She is advised to use CircAid compression in addition at home. A referral to the lymphedema clinic was also provided and potential intervention such as lymphatic massage, other compression pumps and garments were discussed. A compression pump order will be initiated at this time. To continue with hydrogel and Adaptic at this time. . We discussed in depth the importance of edema control. To keep legs elevated above heart while resting. Upon controlled edema and decreased fibrous tissue to the right leg in particular, advanced wound care product application will be considered again. She refuses at this time. To avoid lying directly on the wound while seated or in bed. To avoid idle standing or sitting for prolonged time. To monitor for signs of infection. This is not noted today. RTC (wound center) in 1 week as scheduled or call sooner if she has questions or concerns.
[2017-12-04 14:06] VITALS: BP 141/76; PULSE 74; RESP 16; TEMP 35.7
--- NOTE | 2017-12-04 15:34 | PCM.WC.PN ---
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 layer exposed Status: Chronic Current Visit: Yes Code(s): L97.912 - 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chronic ulcer of unspecified part of right lower leg with fat layer exposed (2) Ulcer of left lower extremity with fat layer exposed Status: Chronic Current Visit: Yes Code(s): L97.922 - 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chronic ulcer of unspecified part of left lower leg with fat layer exposed (3) Delayed wound healing Status: Chronic Current Visit: Yes Code(s): T14.8 - Other injury of unspecified body region (4) Lymphedema of lower extremity Status: Chronic Current Visit: Yes Qualifiers: Code(s): I89.0 - Lymphedema, not elsewhere classified (5) Venous insufficiency (chronic) (peripheral) Status: Chronic Current Visit: Yes (6) Malnutrition Status: Chronic Current Visit: Yes Code(s): E46 - Unspecified protein-calorie malnutrition (7) Edema leg Status: Chronic Current Visit: Yes Code(s): R60.0 - Localized edema Type of Wound Date of Service: 12/05/17 Chief Complaint: Leg ulcers and swelling. History of Wound: She is following up for right and left leg ulcerations that have delayed healing. She denies toe pain or further drainage. She denies odor, loss of appetite, N/V/F/C/loss of appetite. She had previous venous vascular surgery Dr. Kunz. A referral for lymphedema clinic including lymphedema pumps was provided and these treatments are pending. She is not able to take Lasix as recommended due to urination frequency; she already has incontinence. Progress of Wound: Stable - Physical Exam Vital Signs Temp Pulse Resp BP 96.2 F L 74 16 141/76 H 12/04/17 14:06 12/04/17 14:06 12/04/17 14:06 12/04/17 14:06 General: Alert, Oriented x3, Cooperative HEENT: Atraumatic Extremities: No cyanosis, Capillary Refill Less than 3 Seconds, No Calf Tenderness - Negative Cassie prep and bilateral, Diminished Peripheral Pulses, Edema - Her edema slightly decreased bilateral lower extremities. Bilateral lower extremities appear to be consistent with lymphedema condition Skin: Ulcer/ Wound - No purulence, erythema, streaking, no odor, no acute infection bilateral. There is progressive epithelialization islands to the right leg Wound Measurements and Assessment WC - Nurse 1 - General Ulcer Measurement Start: 11/15/17 15:02 Freq: Status: Active Protocol: Activity Type Activity Date Activity User E-Sign Co-Sign Detail Recorded Client Recorded Date Recorded By Document 12/04/17 14:06 [email or web address] [id number] 12/04/17 14:18 [email or web address] 12/04/17 14:06 Wound Center Nurse 1 [Ulcer Assessment] #8 [id number] CALF -Combined with other wound No -Current Size (cm) - Length 6.0 -Current Size (cm) - Width 5.5 -Current Size (cm) - Depth 0.2 -Total Square Cm 33.00 -Date of Last Picture (Recall this 12/04/17 field) -Photo Taken Yes -Epithelialization None Present -Tunneling No -Undermining/Tunneling No -Circular Undermining No -Classification - Thickness Full Thickness with Exposed Support Structure -Exudate Amt Medium (34-66%) -Exudate Type Serous -Wound Margin Distinct, Outline Attached -Granulation Amt Small (1-33%) -Granulation Quality Pale [place] -Slough/Fibrin Yes -Necrosis Amt None Present (0 %) -Necrotic Tissue Type Adherent Slough -Structure Exposed None/Limited to Skin Breakdown -Texture (Vickie-wound Skin Appearance) Excoriation Induration -Moisture (Vickie-wound Skin Appearance Weeping ) -Color (Vickie-wound Skin Appearance) Erythema -Temperature (Vickie-wound Skin No Abnormality Appearance) (Pt Warm) -Tenderness on Palpation (Vickie-wound Yes Skin Appearance) -Ulcer Cleansing PROVON SOAP -Foul Odor after Cleansing No -Anesthetic Used 4% Lidocaine Solution #4 L Lat LE cluster -Combined with other wound No -Current Size (cm) - Length 5.0 -Current Size (cm) - Width 6.0 -Current Size (cm) - Depth 0.2 -Total Square Cm 30.00 -Date of Last Picture (Recall this 12/04/17 field) -Photo Taken Yes -Epithelialization None Present -Tunneling No -Undermining/Tunneling No -Circular Undermining No -Exudate Amt Medium (34-66%) -Exudate Type Serous -Wound Margin Distinct, Outline Attached -Granulation Amt Small (1-33%) -Granulation Quality Pale [place] -Slough/Fibrin Yes -Necrosis Amt None Present (0 %) -Necrotic Tissue Type Adherent Slough -Structure Exposed N/A -Texture (Vickie-wound Skin Appearance) Excoriation Induration -Moisture (Vickie-wound Skin Appearance Weeping ) -Color (Vickie-wound Skin Appearance) Erythema -Temperature (Vickie-wound Skin No Abnormality Appearance) (Pt Warm) -Tenderness on Palpation (Vickie-wound Yes Skin Appearance) -Ulcer Cleansing PROVON SOAP -Foul Odor after Cleansing No -Anesthetic Used 4% Lidocaine Solution #3- RT LE CLUSTER -Current Size (cm) - Length 7.5 -Current Size (cm) - Width 4.5 -Current Size (cm) - Depth 0.2 -Total Square Cm 33.75 -Date of Last Picture (Recall this 12/04/17 field) -Photo Taken Yes -Epithelialization None Present -Tunneling No -Undermining/Tunneling No -Circular Undermining No -Classification - Thickness Full Thickness without Exposed Support Structure -Exudate Amt Medium (34-66%) -Exudate Type Serous -Wound Margin Distinct, Outline Attached -Granulation Amt Medium (34-66%) -Granulation Quality Pale [place] -Slough/Fibrin Yes -Necrosis Amt None Present (0 %) -Necrotic Tissue Type Adherent Slough -Structure Exposed N/A -Texture (Vickie-wound Skin Appearance) Excoriation Induration -Moisture (Vickie-wound Skin Appearance No Abnormality ) Weeping -Color (Vickie-wound Skin Appearance) Erythema -Temperature (Vickie-wound Skin No Abnormality Appearance) (Pt Warm) -Tenderness on Palpation (Vickie-wound Yes Skin Appearance) -Ulcer Cleansing PROVON SOAP -Foul Odor after Cleansing No -Anesthetic Used 4% Lidocaine Solution [Edema Assessment] -Lower Limb Edema Present Yes -Point of measurement (cm from the 57.0 medial instep) -Point of Measurement (cm from the 27.5 medial instep) -Left Calf (cm) 52.5 -Left Ankle (cm) 25.5 WC - Nurse 2 - General Ulcer CM Notes Start: 11/15/17 15:02 Freq: Status: Active Protocol: Activity Type Activity Date Activity User E-Sign Co-Sign Detail Recorded Client Recorded Date Recorded By Document 12/04/17 14:48 PARVIZ [id number] 12/04/17 14:54 PARVIZ 12/04/17 14:48 Wound Center Nurse 2 [Procedure/Treatment] #8 [id number] CALF -Time 14:49 -Correct Patient Yes -Correct Side, Site, Position Yes -Correct Procedure Yes -Procedure Performed Yes -Type of Procedure Debridement -Clinical Debridement Subcutaneous -Post Debridement Size (cm) - Length 6 -Post Debridement Size (cm) - Width 5.6 -Post Debridement Size (cm) - Depth 0.2 -Total Square Cm 33.6 -Wound/Ulcer Outcome Not Healed -Ulcer Cleansing Rinsed/ Irrigated with Saline -Foul Odor after Cleansing No -Bioengineered Tissue No -Bleeding Controlled with Pressure -Treatment Response Procedure Tolerated Well #4 L Lat LE cluster -Time 14:50 -Correct Patient Yes -Correct Side, Site, Position Yes -Correct Procedure Yes -Procedure Performed Yes -Type of Procedure Debridement -Clinical Debridement Subcutaneous -Post Debridement Size (cm) - Length 5.1 -Post Debridement Size (cm) - Width 6 -Post Debridement Size (cm) - Depth 0.2 -Total Square Cm 30.6 -Wound/Ulcer Outcome Not Healed -Ulcer Cleansing Rinsed/ Irrigated with Saline -Foul Odor after Cleansing No -Bioengineered Tissue No -Bleeding Controlled with Pressure -Treatment Response Procedure Tolerated Well #3- RT LE CLUSTER -Time 14:50 -Correct Patient Yes -Correct Side, Site, Position Yes -Correct Procedure Yes -Procedure Performed Yes -Type of Procedure Debridement -Clinical Debridement Subcutaneous -Post Debridement Size (cm) - Length 7.6 -Post Debridement Size (cm) - Width 4.5 -Post Debridement Size (cm) - Depth 0.2 -Total Square Cm 34.20 -Wound/Ulcer Outcome Not Healed -Ulcer Cleansing Rinsed/ Irrigated with Saline -Foul Odor after Cleansing No -Bioengineered Tissue No -Bleeding Controlled with Pressure -Treatment Response Procedure Tolerated Well [See Physician Procedure note for Specifics] Pain Scale: 0-10 Numeric [Pain] -Is Patient Pain Free? Yes Musculoskeletal: No Tenderness to Palpation of Joints or Extremities, Muscle Wasting, Tenderness - Wound palpation pain Neurological: Sensory exam intact to light touch and pain Psych/Mental Status: Normal Affect, Appropriate Debridement Note Post-Debridement Measurements/Treatment WC - Nurse 2 - General Ulcer CM Notes Start: 11/15/17 15:02 Freq: Status: Active Protocol: Activity Type Activity Date Activity User E-Sign Co-Sign Detail Recorded Client Recorded Date Recorded By Document 11/20/17 14:45 TM [id number] 11/20/17 14:48 TM Document 12/04/17 14:48 [id number] 12/04/17 14:54 11/20/17 12/04/17 14:45 14:48 Wound Center Nurse 2 #8 [id number] CALF -Time 14:49 -Correct Patient Yes -Correct Side, Site, Position Yes -Correct Procedure Yes -Procedure Performed Yes -Type of Procedure Debridement -Clinical Debridement Subcutaneous -Post Debridement Size (cm) - Length 6 -Post Debridement Size (cm) - Width 5.6 -Post Debridement Size (cm) - Depth 0.2 -Total Square Cm 33.6 -Wound/Ulcer Outcome Not Healed -Ulcer Cleansing Rinsed/ Irrigated with Saline -Foul Odor after Cleansing No -Bioengineered Tissue No -Bleeding Controlled with Pressure -Treatment Response Procedure Tolerated Well #4 L Lat LE cluster -Time 14:45 14:50 -Correct Patient Yes Yes -Correct Side, Site, Position Yes Yes -Correct Procedure Yes Yes -Procedure Performed Yes Yes -Type of Procedure Debridement Debridement -Clinical Debridement Selective Subcutaneous -Post Debridement Size (cm) - Length 6.5 5.1 -Post Debridement Size (cm) - Width 8.0 6 -Post Debridement Size (cm) - Depth 0.1 0.2 -Total Square Cm 52.00 30.6 -Wound/Ulcer Outcome Not Healed Not Healed -Ulcer Cleansing Rinsed/ Rinsed/ Irrigated with Irrigated with Saline Saline -Foul Odor after Cleansing No No -Bioengineered Tissue No No -Topical Lidocaine (%) 4 -Bleeding Controlled with Pressure Pressure -Treatment Response Procedure Procedure Tolerated Well Tolerated Well #3- RT LE CLUSTER -Time 14:47 14:50 -Correct Patient Yes Yes -Correct Side, Site, Position Yes Yes -Correct Procedure Yes Yes -Procedure Performed Yes Yes -Type of Procedure Debridement Debridement -Clinical Debridement Selective Subcutaneous -Post Debridement Size (cm) - Length 8.0 7.6 -Post Debridement Size (cm) - Width 25.5 4.5 -Post Debridement Size (cm) - Depth 0.2 0.2 -Total Square Cm 204.00 34.20 -Wound/Ulcer Outcome Not Healed Not Healed -Ulcer Cleansing Rinsed/ Rinsed/ Irrigated with Irrigated with Saline Saline -Foul Odor after Cleansing No No -Bioengineered Tissue No No -Topical Lidocaine (%) 4 -Bleeding Controlled with Pressure Pressure -Treatment Response Procedure Procedure Tolerated Well Tolerated Well Pain Scale: 0-10 Numeric Is Patient Pain Free? Yes Yes Wound debrided: leg Laterality: Right Type of Debridement: Excisional debridement Anesthesia Used: 5% Lidocaine Gel Depth: in the subcutaneous layer Percentage of wound debrided: 100 Instrument Used: #15 blade Tissue Removed: fibrous, devitalized subcutaneous, biofilm, slough, Severity: Fat Layer Exposed Amount of bleeding with debridement: Mild Bleeding Controlled with: Pressure Patient tolerated procedure well - Additional Wound Wound debrided: posterior lateral leg Laterality: Right Type of Debridement: Excisional debridement Anesthesia Used: 5% Lidocaine Gel Depth: in the subcutaneous layer Percentage of wound debrided: 100 Instrument Used: #15 blade Tissue Removed: fibrous, devitalized subcutaneous, biofilm, slough Severity: Fat Layer Exposed Amount of bleeding with debridement: Mild Bleeding Controlled with: Pressure Patient tolerated procedure: Patient tolerated procedure well - Additional Wound Wound debrided: leg Laterality: Left Type of Debridement: Excisional debridement Anesthesia Used: 5% Lidocaine Gel Depth: in the subcutaneous layer Percentage of wound debrided: 10 Instrument Used: #15 blade Tissue Removed: fibrous, devitalized subcutaneous, biofilm, slough Severity: Fat Layer Exposed Amount of bleeding with debridement: Mild Bleeding Controlled with: Pressure Patient tolerated procedure: Patient tolerated procedure well Assessment/Plan Active Problems Ulcer of left lower extremity with fat layer exposed (Chronic) Delayed wound healing (Chronic) Lymphedema of lower extremity (Chronic) Venous insufficiency (chronic) (peripheral) (Chronic) 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ulcer of right lower extremity with fat layer exposed (Chronic) Malnutrition (Chronic) Edema leg (Chronic) Assessment: Right leg ulcers with fat layer exposed. left leg ulcer with fat layer exposed. leg edema, lymphedema. malnutrition. venous insufficiency. delayed healing. Gait instability and continued fall risk. Nonadherence to treatment recommendations Plan: I reviewed her case and ongoing treatment plan. Debridement was performed as noted above and in the clinical panel (selective). 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 It is noted her body habitus is limiting the results. To continue diuresis plan with her primary care physician; she has not been able to start this yet. A referral was provided to Dr. Kunz and she completed the planned intervention; to continue as advised. She already had her intervention completed and had scheduled follow-up. Today, a multilayer later compression dressing was applied to the lower extremities. She is advised to use CircAid compression in addition at home. A referral to the lymphedema clinic was also provided and potential intervention such as lymphatic massage, other compression pumps and garments were discussed. A compression pump order was already initiated at this time. To continue with hydrogel and Adaptic at this time. . We discussed in depth the importance of edema control. To keep legs elevated above heart while resting. Upon controlled edema and decreased fibrous tissue to the right leg in particular, advanced wound care product application will be considered again. She refuses at this time. To avoid lying directly on the wound while seated or in bed. To avoid idle standing or sitting for prolonged time. To monitor for signs of infection. This is not noted today. RTC (wound center) in 1 week as scheduled or call sooner if she has questions or concerns.
== END 2017-12-09 23:59 ==
LOC: WC 13:30
PROVIDERS: Family Provider Internal Medicine; PCP Internal Medicine; Visit Provider Podiatrist
DX: I87.2 Venous insufficiency (chronic) (peripheral) (principal); I89.0 Lymphedema, not elsewhere classified; R60.0 Localized edema; L97.822 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chronic ulcer of other part of left lower leg with fat layer exposed; L97.812 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chronic ulcer of other part of right lower leg with fat layer exposed; M79.89 Other specified soft tissue disorders; R32 Unspecified urinary incontinence; G20 Parkinson's disease
CPT/HCPCS: 11042; 11045; 29581; 97597; 97598

== ENCOUNTER 2018-01-08 01:30 | Outpatient (RCR) | payer MEDICARE, OTHER, SELFPAY ==
[2017-12-10 00:26] VITALS: BP 148/72; PULSE 74; RESP 16; TEMP 35.7
[2017-12-25 16:17] VITALS: BP 128/64; PULSE 72; RESP 18; TEMP 36.2
--- NOTE | 2017-12-25 17:27 | PN.PCM_ITS ---
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 layer exposed Status: Chronic Current Visit: Yes Code(s): L97.912 - 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chronic ulcer of unspecified part of right lower leg with fat layer exposed (2) Ulcer of left lower extremity with fat layer exposed Status: Chronic Current Visit: Yes Code(s): L97.922 - 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chronic ulcer of unspecified part of left lower leg with fat layer exposed (3) Right leg pain Status: Chronic Current Visit: Yes Code(s): M79.604 - Pain in right leg (4) Left leg pain Status: Chronic Current Visit: Yes Code(s): M79.605 - Pain in left leg (5) Delayed wound healing Status: Chronic Current Visit: Yes Code(s): T14.8 - Other injury of unspecified body region (6) Lymphedema of lower extremity Status: Chronic Current Visit: Yes Qualifiers: Laterality: bilateral Qualified Code(s): I89.0 - Lymphedema, not elsewhere classified Code(s): I89.0 - Lymphedema, not elsewhere classified (7) Venous insufficiency (chronic) (peripheral) Status: Chronic Current Visit: Yes Code(s): I87.2 - Venous insufficiency ( chronic) (peripheral) (8) Malnutrition Status: Chronic Current Visit: Yes Code(s): E46 - Unspecified protein- calorie malnutrition (9) Edema leg Status: Chronic Current Visit: Yes Code(s): R60.0 - Localized edema Type of Wound Date of Service: 12/25/17 Chief Complaint: Leg ulcers and swelling. History of Wound: She is following up for right and left leg ulcerations that have delayed healing. She denies toe pain or further drainage. She denies odor, loss of appetite, N/V/F/C/loss of appetite. She had previous venous vascular surgery Dr. Kunz. A referral for lymphedema clinic including lymphedema pumps was provided and these treatments are pending the arrival of this associate medical director. She is not able to take Lasix as recommended due to urination frequency; she already has incontinence. Progress of Wound: Stable - Physical Exam Vital Signs Temp Pulse Resp BP 97.1 F L 72 18 128/64 H 12/25/17 16:17 12/25/17 16:17 12/25/17 16:17 12/25/17 16:17 General: Alert, Oriented x3, Cooperative Extremities: No cyanosis, Capillary Refill Less than 3 Seconds, No Calf Tenderness - Negative Cassie and Benitez sign bilateral, Diminished Peripheral Pulses, Edema Skin: Ulcer/ Wound - No purulence, no erythema, streaking, no odor, no infection , no necrosis for eschar bilateral lower extremities. Peripheral skin is inflamed and atrophic. There is no hair bilateral lower extremities Wound Measurements and Assessment WC - Nurse 1 - General Ulcer Measurement Start: 12/25/17 16:17 Freq: Status: Active Protocol: Activity Type Activity Date Activity User E-Sign Co-Sign Detail Recorded Client Recorded Date Recorded By Document 12/25/17 16:17 TN [id number] 12/25/17 16:43 TN 12/25/17 16:17 Wound Center Nurse 1 [Ulcer Assessment] #8 [id number] CALF -Combined with other wound No -Current Size (cm) - Length 6.5 -Current Size (cm) - Width 6.5 -Current Size (cm) - Depth 0.2 -Total Square Cm 42.25 -Photo Taken No -Epithelialization None Present -Tunneling No -Undermining/Tunneling No -Circular Undermining No -Change in Wound Grade/Stage No Query Text:If change please identify the Stage/Grade in the comment (ie. S2 G3) -Exudate Amt Large (67-100%) -Exudate Type Serous -Wound Margin Distinct, Outline Attached -Granulation Amt Medium (34-66%) -Granulation Quality Red -Slough/Fibrin Yes -Necrosis Amt Large (67-100%) -Necrotic Tissue Type Adherent Slough -Structure Exposed None/Limited to Skin Breakdown -Texture (Vickie-wound Skin Appearance) Assessed Scarring -Moisture (Vickie-wound Skin Appearance Assessed ) Weeping -Color (Vickie-wound Skin Appearance) Assessed Erythema -Temperature (Vickie-wound Skin No Abnormality Appearance) (Pt Warm) -Tenderness on Palpation (Vickie-wound No Skin Appearance) -Ulcer Cleansing Rinsed/ Irrigated with Saline -Foul Odor after Cleansing No -Anesthetic Used 4% Lidocaine Solution #4 L Lat LE cluster -Combined with other wound No -Current Size (cm) - Length 5.4 -Current Size (cm) - Width 10 -Current Size (cm) - Depth 0.2 -Total Square Cm 54.0 -Photo Taken No -Epithelialization None Present -Tunneling No -Undermining/Tunneling No -Circular Undermining No -Classification - Thickness Full Thickness without Exposed Support Structure -Change in Wound Grade/Stage No Query Text:If change please identify the Stage/Grade in the comment (ie. S2 G3) -Exudate Amt Large (67-100%) -Exudate Type Serous -Wound Margin Distinct, Outline Attached -Granulation Amt None Present (0 %) -Granulation Quality Red -Slough/Fibrin Yes -Necrosis Amt Large (67-100%) -Necrotic Tissue Type Adherent Slough -Structure Exposed None/Limited to Skin Breakdown -Texture (Vickie-wound Skin Appearance) Assessed Localized Edema Scarring -Moisture (Vickie-wound Skin Appearance Assessed ) Weeping -Color (Vickie-wound Skin Appearance) No Abnormality Assessed -Temperature (Vickie-wound Skin No Abnormality Appearance) (Pt Warm) -Tenderness on Palpation (Vickie-wound No Skin Appearance) -Ulcer Cleansing Rinsed/ Irrigated with Saline -Anesthetic Used 4% Lidocaine Solution #3- RT LE CLUSTER -Combined with other wound No -Current Size (cm) - Length 5 -Current Size (cm) - Width 3 -Current Size (cm) - Depth 0.2 -Total Square Cm 15 -Photo Taken No -Epithelialization None Present -Tunneling No -Undermining/Tunneling No -Circular Undermining No -Classification - Thickness Full Thickness without Exposed Support Structure -Exudate Amt Medium (34-66%) -Exudate Type Serous -Wound Margin Distinct, Outline Attached -Granulation Amt Small (1-33%) -Granulation Quality Red -Slough/Fibrin No -Necrosis Amt Large (67-100%) -Necrotic Tissue Type Adherent Slough -Structure Exposed None/Limited to Skin Breakdown -Texture (Vickie-wound Skin Appearance) Assessed Localized Edema Scarring -Moisture (Vickie-wound Skin Appearance Assessed ) Weeping -Color (Vickie-wound Skin Appearance) Assessed Hemosiderin Staining -Temperature (Vickie-wound Skin No Abnormality Appearance) (Pt Warm) -Tenderness on Palpation (Vickie-wound Yes Skin Appearance) -Ulcer Cleansing Rinsed/ Irrigated with Saline -Foul Odor after Cleansing No -Anesthetic Used 4% Lidocaine Solution [Edema Assessment] -Lower Limb Edema Present No WC - Nurse 2 - General Ulcer CM Notes Start: 12/25/17 16:17 Freq: Status: Active Protocol: Activity Type Activity Date Activity User E-Sign Co-Sign Detail Recorded Client Recorded Date Recorded By Document 12/25/17 17:00 [email or web address] [id number] 12/25/17 17:12 [email or web address] 12/25/17 17:00 Wound Center Nurse 2 [Procedure/Treatment] #8 [id number] CALF -Time 17:01 -Correct Patient Yes -Correct Side, Site, Position Yes -Correct Procedure Yes -Procedure Performed Yes -Type of Procedure Debridement -Clinical Debridement Subcutaneous -Post Debridement Size (cm) - Length 6.6 -Post Debridement Size (cm) - Width 6.6 -Post Debridement Size (cm) - Depth 0.2 -Total Square Cm 43.56 -Wound/Ulcer Outcome Not Healed -Ulcer Cleansing Rinsed/ Irrigated with Saline -Foul Odor after Cleansing No -Bioengineered Tissue No -Topical Lidocaine (%) 4 -Lidocaine (ml) 5 -Bleeding Controlled with NA -Treatment Response Procedure Tolerated Well #4 L Lat LE cluster -Time 17:01 -Correct Patient Yes -Correct Side, Site, Position Yes -Correct Procedure Yes -Procedure Performed Yes -Type of Procedure Debridement -Clinical Debridement Subcutaneous -Post Debridement Size (cm) - Length 5.5 -Post Debridement Size (cm) - Width 10.1 -Post Debridement Size (cm) - Depth 0.2 -Total Square Cm 55.55 -Wound/Ulcer Outcome Not Healed -Ulcer Cleansing Not Cleansed -Foul Odor after Cleansing No -Bioengineered Tissue No -Topical Lidocaine (%) 4 -Lidocaine (ml) 5 -Bleeding Controlled with NA -Treatment Response Procedure Tolerated Well #3- RT LE CLUSTER -Time 17:02 -Correct Patient Yes -Correct Side, Site, Position Yes -Correct Procedure Yes -Procedure Performed Yes -Type of Procedure Debridement -Clinical Debridement Subcutaneous -Post Debridement Size (cm) - Length 5.0 -Post Debridement Size (cm) - Width 3.1 -Post Debridement Size (cm) - Depth 0.2 -Total Square Cm 15.50 -Wound/Ulcer Outcome Not Healed -Ulcer Cleansing Rinsed/ Irrigated with Saline -Foul Odor after Cleansing No -Bioengineered Tissue No -Topical Lidocaine (%) 4 -Lidocaine (ml) 5 -Bleeding Controlled with NA -Treatment Response Procedure Tolerated Well [See Physician Procedure note for Specifics] Pain Scale: 0-10 Numeric [Pain] -Is Patient Pain Free? Yes Musculoskeletal: No Tenderness to Palpation of Joints or Extremities, Muscle Wasting Neurological: Sensory exam intact to light touch and pain Psych/Mental Status: Normal Affect, Appropriate Debridement Note Post-Debridement Measurements/Treatment WC - Nurse 2 - General Ulcer CM Notes Start: 12/25/17 16:17 Freq: Status: Active Protocol: Activity Type Activity Date Activity User E-Sign Co-Sign Detail Recorded Client Recorded Date Recorded By Document 12/25/17 17:00 [email or web address] [id number] 12/25/17 17:12 [email or web address] 12/25/17 17:00 Wound Center Nurse 2 #8 [id number] CALF -Time 17:01 -Correct Patient Yes -Correct Side, Site, Position Yes -Correct Procedure Yes -Procedure Performed Yes -Type of Procedure Debridement -Clinical Debridement Subcutaneous -Post Debridement Size (cm) - Length 6.6 -Post Debridement Size (cm) - Width 6.6 -Post Debridement Size (cm) - Depth 0.2 -Total Square Cm 43.56 -Wound/Ulcer Outcome Not Healed -Ulcer Cleansing Rinsed/ Irrigated with Saline -Foul Odor after Cleansing No -Bioengineered Tissue No -Topical Lidocaine (%) 4 -Lidocaine (ml) 5 -Bleeding Controlled with NA -Treatment Response Procedure Tolerated Well #4 L Lat LE cluster -Time 17:01 -Correct Patient Yes -Correct Side, Site, Position Yes -Correct Procedure Yes -Procedure Performed Yes -Type of Procedure Debridement -Clinical Debridement Subcutaneous -Post Debridement Size (cm) - Length 5.5 -Post Debridement Size (cm) - Width 10.1 -Post Debridement Size (cm) - Depth 0.2 -Total Square Cm 55.55 -Wound/Ulcer Outcome Not Healed -Ulcer Cleansing Not Cleansed -Foul Odor after Cleansing No -Bioengineered Tissue No -Topical Lidocaine (%) 4 -Lidocaine (ml) 5 -Bleeding Controlled with NA -Treatment Response Procedure Tolerated Well #3- RT LE CLUSTER -Time 17:02 -Correct Patient Yes -Correct Side, Site, Position Yes -Correct Procedure Yes -Procedure Performed Yes -Type of Procedure Debridement -Clinical Debridement Subcutaneous -Post Debridement Size (cm) - Length 5.0 -Post Debridement Size (cm) - Width 3.1 -Post Debridement Size (cm) - Depth 0.2 -Total Square Cm 15.50 -Wound/Ulcer Outcome Not Healed -Ulcer Cleansing Rinsed/ Irrigated with Saline -Foul Odor after Cleansing No -Bioengineered Tissue No -Topical Lidocaine (%) 4 -Lidocaine (ml) 5 -Bleeding Controlled with NA -Treatment Response Procedure Tolerated Well Pain Scale: 0-10 Numeric Is Patient Pain Free? Yes Wound debrided: leg Laterality: Left Type of Debridement: Excisional debridement Anesthesia Used: 4% Lidocaine Solution Depth: in the subcutaneous layer Percentage of wound debrided: 100 Instrument Used: #10 blade Tissue Removed: fibrous, devitalized subcutaneous tissue, biofilm, slough Severity: Fat Layer Exposed Amount of bleeding with debridement: Mild Bleeding Controlled with: Pressure Patient tolerated procedure well - Additional Wound Wound debrided: lateral leg Laterality: Right Type of Debridement: Excisional debridement Anesthesia Used: 5% Lidocaine Gel Depth: in the subcutaneous layer Percentage of wound debrided: 100 Instrument Used: #10 blade Tissue Removed: fibrous, devitalized subcutaneous tissue, biofilm, slough Severity: Fat Layer Exposed Amount of bleeding with debridement: Mild Bleeding Controlled with: Pressure Patient tolerated procedure: Patient tolerated procedure well - Additional Wound Wound debrided: medial leg Laterality: Right Type of Debridement: Excisional debridement Anesthesia Used: 5% Lidocaine Gel Depth: in the subcutaneous layer Percentage of wound debrided: 100 Instrument Used: #10 blade Tissue Removed: fibrous, devitalized subcutaneous tissue, biofilm, slough Severity: Fat Layer Exposed Amount of bleeding with debridement: Mild Bleeding Controlled with: Pressure Patient tolerated procedure: Patient tolerated procedure well Assessment/Plan Active Problems Ulcer of left lower extremity with fat layer exposed (Chronic) Right leg pain (Chronic) Left leg pain (Chronic) Delayed wound healing (Chronic) Lymphedema of lower extremity (Chronic) Venous insufficiency (chronic) (peripheral) (Chronic) 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ulcer of right lower extremity with fat layer exposed (Chronic) Malnutrition (Chronic) Edema leg (Chronic) Assessment: Right leg ulcers with fat layer exposed. left leg ulcer with fat layer exposed. leg edema, lymphedema. malnutrition. venous insufficiency. delayed healing. Gait instability and continued fall risk. Nonadherence to treatment recommendations Plan: I reviewed her case and ongoing treatment plan. Debridement was performed as noted above and in the clinical panel (subcutaneous). 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 It is noted her body habitus is limiting the results. To continue diuresis plan with her primary care physician; she has not been able to start this yet. A referral was provided to Dr. Kunz and she completed the planned intervention; to continue as advised. She already had her intervention completed and had scheduled follow-up. Today, a multilayer later compression dressing was applied to the lower extremities. She is advised to use CircAid compression in addition at home. A referral to the lymphedema clinic was also provided and potential intervention such as lymphatic massage, other compression pumps and garments were discussed. A compression pump order was ordered and has been shipped. Upon receipt the education will be reviewed and she will initiate this part of her treatment plan. To continue with hydrogel and Adaptic at this time. . We discussed in depth the importance of edema control. To keep legs elevated above heart while resting. Upon controlled edema and decreased fibrous tissue to the right leg in particular, advanced wound care product application will be considered again. She refuses at this time. To avoid lying directly on the wound while seated or in bed. To avoid idle standing or sitting for prolonged time. To monitor for signs of infection. This is not noted today. She has night pain to the wound and a tramadol prescription was provided. She was advised on safe and proper use only as needed at bedtime. RTC (wound center) in 1 week as scheduled or call sooner if she has questions or concerns.
[2018-01-01 13:57] VITALS: BP 135/57; PULSE 71; RESP 20; TEMP 37.2
--- NOTE | 2018-01-01 15:52 | PCM.WC.PN ---
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 layer exposed Status: Chronic Current Visit: Yes Code(s): L97.912 - 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chronic ulcer of unspecified part of right lower leg with fat layer exposed (2) Ulcer of left lower extremity with fat layer exposed Status: Chronic Current Visit: Yes Code(s): L97.922 - 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chronic ulcer of unspecified part of left lower leg with fat layer exposed (3) Right leg pain Status: Chronic Current Visit: Yes Code(s): M79.604 - Pain in right leg (4) Left leg pain Status: Chronic Current Visit: Yes Code(s): M79.605 - Pain in left leg (5) Delayed wound healing Status: Chronic Current Visit: Yes Code(s): T14.8 - Other injury of unspecified body region (6) Lymphedema of lower extremity Status: Chronic Current Visit: Yes Qualifiers: Laterality: bilateral Qualified Code(s): I89.0 - Lymphedema, not elsewhere classified Code(s): I89.0 - Lymphedema, not elsewhere classified (7) Venous insufficiency (chronic) (peripheral) Status: Chronic Current Visit: Yes Code(s): I87.2 - Venous insufficiency (chronic) (peripheral) (8) Malnutrition Status: Chronic Current Visit: Yes Code(s): E46 - Unspecified protein-calorie malnutrition (9) Edema leg Status: Chronic Current Visit: Yes Code(s): R60.0 - Localized edema Type of Wound Date of Service: 01/01/18 Chief Complaint: Leg ulcers and swelling. History of Wound: She is following up for right and left leg ulcerations that have delayed healing. She denies toe pain or further drainage. She denies odor, loss of appetite, N/V/F/C/loss of appetite. She had previous venous vascular surgery Dr. Kunz. A referral for lymphedema clinic including lymphedema pumps was provided; and she utilizes these twice daily. Her leg swelling has decreased. She is not able to take Lasix as recommended due to urination frequency; she already has incontinence. She has continued pronounced leg weeping and drainage. Progress of Wound: Stable - Physical Exam Vital Signs Temp Pulse Resp BP 99 F 71 20 H 135/57 H 01/01/18 13:57 01/01/18 13:57 01/01/18 13:57 01/01/18 13:57 General: Alert, Oriented x3, Cooperative HEENT: Atraumatic Extremities: No cyanosis, Capillary Refill Less than 3 Seconds, No Calf Tenderness - Negative Cassie and Benitez bilateral, Diminished Peripheral Pulses, Edema Skin: Ulcer/ Wound - No purulence, no erythema, skin, odor, no infection. The skin is atrophic. Hyperpigmentation is noted. Wound Measurements and Assessment WC - Nurse 1 - General Ulcer Measurement Start: 12/25/17 16:17 Freq: Status: Active Protocol: Activity Type Activity Date Activity User E-Sign Co-Sign Detail Recorded Client Recorded Date Recorded By Document 01/01/18 13:57 DL [id number] 01/01/18 14:14 DL 01/01/18 13:57 Wound Center Nurse 1 [Ulcer Assessment] #8 [id number] CALF cluster -Combined with other wound No -Current Size (cm) - Length 6 -Current Size (cm) - Width 10.0 -Current Size (cm) - Depth 0.3 -Total Square Cm 60.0 -Photo Taken No -Epithelialization None Present -Tunneling No -Undermining/Tunneling No -Circular Undermining No -Exudate Amt Large (67-100%) -Exudate Type Serosanguineous -Wound Margin Flat & Intact -Granulation Amt Medium (34-66%) -Granulation Quality [place] -Slough/Fibrin Yes -Necrosis Amt Large (67-100%) -Necrotic Tissue Type Adherent Slough -Structure Exposed N/A -Texture (Vickie-wound Skin Appearance) Assessed Localized Edema -Moisture (Vickie-wound Skin Appearance Assessed ) Dry/Scaly -Color (Vickie-wound Skin Appearance) Assessed Hemosiderin Staining -Temperature (Vickie-wound Skin No Abnormality Appearance) (Pt Warm) -Tenderness on Palpation (Vickie-wound No Skin Appearance) -Ulcer Cleansing Wound Cleanser -Foul Odor after Cleansing No -Anesthetic Used 4% Lidocaine Solution #4 L Lat LE cluster -Combined with other wound No -Current Size (cm) - Length 5 -Current Size (cm) - Width 8 -Current Size (cm) - Depth 0.2 -Total Square Cm 40 -Photo Taken No -Epithelialization Large 67-100% -Tunneling No -Undermining/Tunneling No -Circular Undermining No -Exudate Amt Large (67-100%) -Exudate Type Serosanguineous -Wound Margin Flat & Intact -Granulation Amt Large (67-100%) -Granulation Quality [place] -Slough/Fibrin Yes -Necrosis Amt Medium (34-66%) -Necrotic Tissue Type Adherent Slough -Structure Exposed N/A -Texture (Vickie-wound Skin Appearance) Assessed Excoriation Localized Edema -Moisture (Vickie-wound Skin Appearance Assessed ) Weeping Dry/Scaly -Color (Vickie-wound Skin Appearance) Assessed Hemosiderin Staining -Temperature (Vickie-wound Skin No Abnormality Appearance) (Pt Warm) -Tenderness on Palpation (Vickie-wound No Skin Appearance) -Ulcer Cleansing Wound Cleanser -Foul Odor after Cleansing No -Anesthetic Used 4% Lidocaine Solution 5% Lidocaine Gel #3- RT LE CLUSTER -Combined with other wound Yes [Edema Assessment] -Lower Limb Edema Present Yes -Right Calf (cm) 46.0 -Right Ankle (cm) 25.5 -Left Calf (cm) 43.5 -Left Ankle (cm) 24.0 WC - Nurse 2 - General Ulcer CM Notes Start: 12/25/17 16:17 Freq: Status: Active Protocol: Activity Type Activity Date Activity User E-Sign Co-Sign Detail Recorded Client Recorded Date Recorded By Document 01/01/18 14:24 DL [id number] 01/01/18 14:27 DL 01/01/18 14:24 Wound Center Nurse 2 [Procedure/Treatment] #8 [id number] CALF cluster -Time 14:24 -Correct Patient Yes -Correct Side, Site, Position Yes -Correct Procedure Yes -Procedure Performed Yes -Type of Procedure Debridement -Clinical Debridement Subcutaneous -Post Debridement Size (cm) - Length 6 -Post Debridement Size (cm) - Width 10 -Post Debridement Size (cm) - Depth 0.2 -Total Square Cm 60 -Wound/Ulcer Outcome Not Healed -Ulcer Cleansing Rinsed/ Irrigated with Saline -Foul Odor after Cleansing No -Bioengineered Tissue No -Bleeding Controlled with Pressure -Other 80% debrided today -Treatment Response Procedure Tolerated Well #4 L Lat LE cluster -Time 14:26 -Correct Patient Yes -Correct Side, Site, Position Yes -Correct Procedure Yes -Procedure Performed Yes -Type of Procedure Debridement -Clinical Debridement Subcutaneous -Post Debridement Size (cm) - Length 5 -Post Debridement Size (cm) - Width 8 -Post Debridement Size (cm) - Depth 0.2 -Total Square Cm 40 -Wound/Ulcer Outcome Not Healed -Ulcer Cleansing Rinsed/ Irrigated with Saline -Foul Odor after Cleansing No -Bioengineered Tissue No -Bleeding Controlled with Pressure -Other 15% of ulcer debrided. -Treatment Response Procedure Tolerated Well [See Physician Procedure note for Specifics] Pain Scale: 0-10 Numeric [Pain] -Is Patient Pain Free? Yes Musculoskeletal: No Tenderness to Palpation of Joints or Extremities, Muscle Wasting, Tenderness - Pain with wound manipulation bilateral. The compartments are lower extremities remain soft bilateral Neurological: Sensory exam intact to light touch and pain Psych/Mental Status: Normal Affect, Appropriate Debridement Note Post-Debridement Measurements/Treatment WC - Nurse 2 - General Ulcer CM Notes Start: 12/25/17 16:17 Freq: Status: Active Protocol: Activity Type Activity Date Activity User E-Sign Co-Sign Detail Recorded Client Recorded Date Recorded By Document 12/25/17 17:00 JS [id number] 12/25/17 17:12 JS Document 01/01/18 14:24 DL [id number] 01/01/18 14:27 DL 12/25/17 01/01/18 17:00 14:24 Wound Center Nurse 2 #8 [id number] CALF cluster -Time 17:01 14:24 -Correct Patient Yes Yes -Correct Side, Site, Position Yes Yes -Correct Procedure Yes Yes -Procedure Performed Yes Yes -Type of Procedure Debridement Debridement -Clinical Debridement Subcutaneous Subcutaneous -Post Debridement Size (cm) - Length 6.6 6 -Post Debridement Size (cm) - Width 6.6 10 -Post Debridement Size (cm) - Depth 0.2 0.2 -Total Square Cm 43.56 60 -Wound/Ulcer Outcome Not Healed Not Healed -Ulcer Cleansing Rinsed/ Rinsed/ Irrigated with Irrigated with Saline Saline -Foul Odor after Cleansing No No -Bioengineered Tissue No No -Topical Lidocaine (%) 4 -Lidocaine (ml) 5 -Bleeding Controlled with NA Pressure -Other 80% debrided today -Treatment Response Procedure Procedure Tolerated Well Tolerated Well #4 L Lat LE cluster -Time 17:01 14:26 -Correct Patient Yes Yes -Correct Side, Site, Position Yes Yes -Correct Procedure Yes Yes -Procedure Performed Yes Yes -Type of Procedure Debridement Debridement -Clinical Debridement Subcutaneous Subcutaneous -Post Debridement Size (cm) - Length 5.5 5 -Post Debridement Size (cm) - Width 10.1 8 -Post Debridement Size (cm) - Depth 0.2 0.2 -Total Square Cm 55.55 40 -Wound/Ulcer Outcome Not Healed Not Healed -Ulcer Cleansing Not Cleansed Rinsed/ Irrigated with Saline -Foul Odor after Cleansing No No -Bioengineered Tissue No No -Topical Lidocaine (%) 4 -Lidocaine (ml) 5 -Bleeding Controlled with NA Pressure -Other 15% of ulcer debrided. -Treatment Response Procedure Procedure Tolerated Well Tolerated Well #3- RT LE CLUSTER -Time 17:02 -Correct Patient Yes -Correct Side, Site, Position Yes -Correct Procedure Yes -Procedure Performed Yes -Type of Procedure Debridement -Clinical Debridement Subcutaneous -Post Debridement Size (cm) - Length 5.0 -Post Debridement Size (cm) - Width 3.1 -Post Debridement Size (cm) - Depth 0.2 -Total Square Cm 15.50 -Wound/Ulcer Outcome Not Healed -Ulcer Cleansing Rinsed/ Irrigated with Saline -Foul Odor after Cleansing No -Bioengineered Tissue No -Topical Lidocaine (%) 4 -Lidocaine (ml) 5 -Bleeding Controlled with NA -Treatment Response Procedure Tolerated Well Pain Scale: 0-10 Numeric Is Patient Pain Free? Yes Yes Wound debrided: leg Laterality: Right Type of Debridement: Excisional debridement Anesthesia Used: 5% Lidocaine Gel Depth: in the subcutaneous layer Percentage of wound debrided: 80 Instrument Used: 5mm curette Tissue Removed: fibrous, devitalized subcutaneous, biofilm, slough Severity: Fat Layer Exposed Amount of bleeding with debridement: Mild Bleeding Controlled with: Pressure Patient tolerated procedure well - Additional Wound Wound debrided: left Laterality: Left Type of Debridement: Excisional debridement Anesthesia Used: 5% Lidocaine Gel Depth: in the subcutaneous layer Percentage of wound debrided: - - 15 Instrument Used: 5mm curette Tissue Removed: fibrous, devitalized subcutaneous, biofilm, slough Severity: Fat Layer Exposed Amount of bleeding with debridement: Mild Bleeding Controlled with: Pressure Patient tolerated procedure: Patient tolerated procedure well Assessment/Plan Active Problems Ulcer of left lower extremity with fat layer exposed (Chronic) Right leg pain (Chronic) Left leg pain (Chronic) Delayed wound healing (Chronic) Lymphedema of lower extremity (Chronic) Venous insufficiency (chronic) (peripheral) (Chronic) 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ulcer of right lower extremity with fat layer exposed (Chronic) Malnutrition (Chronic) Edema leg (Chronic) Assessment: Right leg ulcers with fat layer exposed. left leg ulcer with fat layer exposed. leg edema, lymphedema. malnutrition. venous insufficiency. delayed healing. Gait instability and continued fall risk. Nonadherence to treatment recommendations Plan: I reviewed her case and ongoing treatment plan. Debridement was performed as noted above and in the clinical panel (subcutaneous). 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 It is noted her body habitus is limiting the results. To continue diuresis plan with her primary care physician; she has not been able to start this yet. A referral was provided to Dr. Kunz and she completed the planned intervention; to continue as advised. She already had her intervention completed and had scheduled follow-up. Today, a multilayer later compression dressing was applied to the lower extremities. She is advised to use CircAid compression in addition at home. A referral to the lymphedema clinic was also provided and potential intervention such as lymphatic massage, other compression pumps and garments were discussed. A compression pump has been received and she was advised to continue this twice daily. Due to her increasing continued weeping and drainage I recommend application of dry to reduce pain max, drainage, and tissue compromise. This will be changed by home health a couple times a week and was applied today. . We discussed in depth the importance of edema control. To keep legs elevated above heart while resting. To avoid lying directly on the wound while seated or in bed. To avoid idle standing or sitting for prolonged time. To monitor for signs of infection. This is not noted today. She has night pain to the wound and a tramadol prescription was provided. She was advised on safe and proper use only as needed at bedtime. RTC (wound center) in 1 week as scheduled or call sooner if she has questions or concerns.
--- NOTE | 2018-01-01 15:58 | PN.PCM_ITS ---
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 layer exposed Status: Chronic Current Visit: Yes Code(s): L97.912 - 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chronic ulcer of unspecified part of right lower leg with fat layer exposed (2) Ulcer of left lower extremity with fat layer exposed Status: Chronic Current Visit: Yes Code(s): L97.922 - 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chronic ulcer of unspecified part of left lower leg with fat layer exposed (3) Right leg pain Status: Chronic Current Visit: Yes Code(s): M79.604 - Pain in right leg (4) Left leg pain Status: Chronic Current Visit: Yes Code(s): M79.605 - Pain in left leg (5) Delayed wound healing Status: Chronic Current Visit: Yes Code(s): T14.8 - Other injury of unspecified body region (6) Lymphedema of lower extremity Status: Chronic Current Visit: Yes Qualifiers: Laterality: bilateral Qualified Code(s): I89.0 - Lymphedema, not elsewhere classified Code(s): I89.0 - Lymphedema, not elsewhere classified (7) Venous insufficiency (chronic) (peripheral) Status: Chronic Current Visit: Yes Code(s): I87.2 - Venous insufficiency ( chronic) (peripheral) (8) Malnutrition Status: Chronic Current Visit: Yes Code(s): E46 - Unspecified protein- calorie malnutrition (9) Edema leg Status: Chronic Current Visit: Yes Code(s): R60.0 - Localized edema Type of Wound Date of Service: 01/01/18 Chief Complaint: Leg ulcers and swelling. History of Wound: She is following up for right and left leg ulcerations that have delayed healing. She denies toe pain or further drainage. She denies odor, loss of appetite, N/V/F/C/loss of appetite. She had previous venous vascular surgery Dr. Kunz. A referral for lymphedema clinic including lymphedema pumps was provided; and she utilizes these twice daily. Her leg swelling has decreased. She is not able to take Lasix as recommended due to urination frequency; she already has incontinence. She has continued pronounced leg weeping and drainage. Progress of Wound: Stable - Physical Exam Vital Signs Temp Pulse Resp BP 99 F 71 20 H 135/57 H 01/01/18 13:57 01/01/18 13:57 01/01/18 13:57 01/01/18 13:57 General: Alert, Oriented x3, Cooperative HEENT: Atraumatic Extremities: No cyanosis, Capillary Refill Less than 3 Seconds, No Calf Tenderness - Negative Cassie and Benitez bilateral, Diminished Peripheral Pulses, Edema Skin: Ulcer/ Wound - No purulence, no erythema, skin, odor, no infection. The skin is atrophic. Hyperpigmentation is noted. Wound Measurements and Assessment WC - Nurse 1 - General Ulcer Measurement Start: 12/25/17 16:17 Freq: Status: Active Protocol: Activity Type Activity Date Activity User E-Sign Co-Sign Detail Recorded Client Recorded Date Recorded By Document 01/01/18 13:57 DL [id number] 01/01/18 14:14 DL 01/01/18 13:57 Wound Center Nurse 1 [Ulcer Assessment] #8 [id number] CALF cluster -Combined with other wound No -Current Size (cm) - Length 6 -Current Size (cm) - Width 10.0 -Current Size (cm) - Depth 0.3 -Total Square Cm 60.0 -Photo Taken No -Epithelialization None Present -Tunneling No -Undermining/Tunneling No -Circular Undermining No -Exudate Amt Large (67-100%) -Exudate Type Serosanguineous -Wound Margin Flat & Intact -Granulation Amt Medium (34-66%) -Granulation Quality Mead -Slough/Fibrin Yes -Necrosis Amt Large (67-100%) -Necrotic Tissue Type Adherent Slough -Structure Exposed N/A -Texture (Vickie-wound Skin Appearance) Assessed Localized Edema -Moisture (Vickie-wound Skin Appearance Assessed ) Dry/Scaly -Color (Vickie-wound Skin Appearance) Assessed Hemosiderin Staining -Temperature (Vickie-wound Skin No Abnormality Appearance) (Pt Warm) -Tenderness on Palpation (Vickie-wound No Skin Appearance) -Ulcer Cleansing Wound Cleanser -Foul Odor after Cleansing No -Anesthetic Used 4% Lidocaine Solution #4 L Lat LE cluster -Combined with other wound No -Current Size (cm) - Length 5 -Current Size (cm) - Width 8 -Current Size (cm) - Depth 0.2 -Total Square Cm 40 -Photo Taken No -Epithelialization Large 67-100% -Tunneling No -Undermining/Tunneling No -Circular Undermining No -Exudate Amt Large (67-100%) -Exudate Type Serosanguineous -Wound Margin Flat & Intact -Granulation Amt Large (67-100%) -Granulation Quality Mead -Slough/Fibrin Yes -Necrosis Amt Medium (34-66%) -Necrotic Tissue Type Adherent Slough -Structure Exposed N/A -Texture (Vickie-wound Skin Appearance) Assessed Excoriation Localized Edema -Moisture (Vickie-wound Skin Appearance Assessed ) Weeping Dry/Scaly -Color (Vickie-wound Skin Appearance) Assessed Hemosiderin Staining -Temperature (Vickie-wound Skin No Abnormality Appearance) (Pt Warm) -Tenderness on Palpation (Vickie-wound No Skin Appearance) -Ulcer Cleansing Wound Cleanser -Foul Odor after Cleansing No -Anesthetic Used 4% Lidocaine Solution 5% Lidocaine Gel #3- RT LE CLUSTER -Combined with other wound Yes [Edema Assessment] -Lower Limb Edema Present Yes -Right Calf (cm) 46.0 -Right Ankle (cm) 25.5 -Left Calf (cm) 43.5 -Left Ankle (cm) 24.0 WC - Nurse 2 - General Ulcer CM Notes Start: 12/25/17 16:17 Freq: Status: Active Protocol: Activity Type Activity Date Activity User E-Sign Co-Sign Detail Recorded Client Recorded Date Recorded By Document 01/01/18 14:24 DL [id number] 01/01/18 14:27 DL 01/01/18 14:24 Wound Center Nurse 2 [Procedure/Treatment] #8 [id number] CALF cluster -Time 14:24 -Correct Patient Yes -Correct Side, Site, Position Yes -Correct Procedure Yes -Procedure Performed Yes -Type of Procedure Debridement -Clinical Debridement Subcutaneous -Post Debridement Size (cm) - Length 6 -Post Debridement Size (cm) - Width 10 -Post Debridement Size (cm) - Depth 0.2 -Total Square Cm 60 -Wound/Ulcer Outcome Not Healed -Ulcer Cleansing Rinsed/ Irrigated with Saline -Foul Odor after Cleansing No -Bioengineered Tissue No -Bleeding Controlled with Pressure -Other 80% debrided today -Treatment Response Procedure Tolerated Well #4 L Lat LE cluster -Time 14:26 -Correct Patient Yes -Correct Side, Site, Position Yes -Correct Procedure Yes -Procedure Performed Yes -Type of Procedure Debridement -Clinical Debridement Subcutaneous -Post Debridement Size (cm) - Length 5 -Post Debridement Size (cm) - Width 8 -Post Debridement Size (cm) - Depth 0.2 -Total Square Cm 40 -Wound/Ulcer Outcome Not Healed -Ulcer Cleansing Rinsed/ Irrigated with Saline -Foul Odor after Cleansing No -Bioengineered Tissue No -Bleeding Controlled with Pressure -Other 15% of ulcer debrided. -Treatment Response Procedure Tolerated Well [See Physician Procedure note for Specifics] Pain Scale: 0-10 Numeric [Pain] -Is Patient Pain Free? Yes Musculoskeletal: No Tenderness to Palpation of Joints or Extremities, Muscle Wasting, Tenderness - Pain with wound manipulation bilateral. The compartments are lower extremities remain soft bilateral Neurological: Sensory exam intact to light touch and pain Psych/Mental Status: Normal Affect, Appropriate Debridement Note Post-Debridement Measurements/Treatment WC - Nurse 2 - General Ulcer CM Notes Start: 12/25/17 16:17 Freq: Status: Active Protocol: Activity Type Activity Date Activity User E-Sign Co-Sign Detail Recorded Client Recorded Date Recorded By Document 12/25/17 17:00 JS [id number] 12/25/17 17:12 JS Document 01/01/18 14:24 DL [id number] 01/01/18 14:27 DL 12/25/17 01/01/18 17:00 14:24 Wound Center Nurse 2 #8 [id number] CALF cluster -Time 17:01 14:24 -Correct Patient Yes Yes -Correct Side, Site, Position Yes Yes -Correct Procedure Yes Yes -Procedure Performed Yes Yes -Type of Procedure Debridement Debridement -Clinical Debridement Subcutaneous Subcutaneous -Post Debridement Size (cm) - Length 6.6 6 -Post Debridement Size (cm) - Width 6.6 10 -Post Debridement Size (cm) - Depth 0.2 0.2 -Total Square Cm 43.56 60 -Wound/Ulcer Outcome Not Healed Not Healed -Ulcer Cleansing Rinsed/ Rinsed/ Irrigated with Irrigated with Saline Saline -Foul Odor after Cleansing No No -Bioengineered Tissue No No -Topical Lidocaine (%) 4 -Lidocaine (ml) 5 -Bleeding Controlled with NA Pressure -Other 80% debrided today -Treatment Response Procedure Procedure Tolerated Well Tolerated Well #4 L Lat LE cluster -Time 17:01 14:26 -Correct Patient Yes Yes -Correct Side, Site, Position Yes Yes -Correct Procedure Yes Yes -Procedure Performed Yes Yes -Type of Procedure Debridement Debridement -Clinical Debridement Subcutaneous Subcutaneous -Post Debridement Size (cm) - Length 5.5 5 -Post Debridement Size (cm) - Width 10.1 8 -Post Debridement Size (cm) - Depth 0.2 0.2 -Total Square Cm 55.55 40 -Wound/Ulcer Outcome Not Healed Not Healed -Ulcer Cleansing Not Cleansed Rinsed/ Irrigated with Saline -Foul Odor after Cleansing No No -Bioengineered Tissue No No -Topical Lidocaine (%) 4 -Lidocaine (ml) 5 -Bleeding Controlled with NA Pressure -Other 15% of ulcer debrided. -Treatment Response Procedure Procedure Tolerated Well Tolerated Well #3- RT LE CLUSTER -Time 17:02 -Correct Patient Yes -Correct Side, Site, Position Yes -Correct Procedure Yes -Procedure Performed Yes -Type of Procedure Debridement -Clinical Debridement Subcutaneous -Post Debridement Size (cm) - Length 5.0 -Post Debridement Size (cm) - Width 3.1 -Post Debridement Size (cm) - Depth 0.2 -Total Square Cm 15.50 -Wound/Ulcer Outcome Not Healed -Ulcer Cleansing Rinsed/ Irrigated with Saline -Foul Odor after Cleansing No -Bioengineered Tissue No -Topical Lidocaine (%) 4 -Lidocaine (ml) 5 -Bleeding Controlled with NA -Treatment Response Procedure Tolerated Well Pain Scale: 0-10 Numeric Is Patient Pain Free? Yes Yes Wound debrided: leg Laterality: Right Type of Debridement: Excisional debridement Anesthesia Used: 5% Lidocaine Gel Depth: in the subcutaneous layer Percentage of wound debrided: 80 Instrument Used: 5mm curette Tissue Removed: fibrous, devitalized subcutaneous, biofilm, slough Severity: Fat Layer Exposed Amount of bleeding with debridement: Mild Bleeding Controlled with: Pressure Patient tolerated procedure well - Additional Wound Wound debrided: left Laterality: Left Type of Debridement: Excisional debridement Anesthesia Used: 5% Lidocaine Gel Depth: in the subcutaneous layer Percentage of wound debrided: - - 15 Instrument Used: 5mm curette Tissue Removed: fibrous, devitalized subcutaneous, biofilm, slough Severity: Fat Layer Exposed Amount of bleeding with debridement: Mild Bleeding Controlled with: Pressure Patient tolerated procedure: Patient tolerated procedure well Assessment/Plan Active Problems Ulcer of left lower extremity with fat layer exposed (Chronic) Right leg pain (Chronic) Left leg pain (Chronic) Delayed wound healing (Chronic) Lymphedema of lower extremity (Chronic) Venous insufficiency (chronic) (peripheral) (Chronic) 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ulcer of right lower extremity with fat layer exposed (Chronic) Malnutrition (Chronic) Edema leg (Chronic) Assessment: Right leg ulcers with fat layer exposed. left leg ulcer with fat layer exposed. leg edema, lymphedema. malnutrition. venous insufficiency. delayed healing. Gait instability and continued fall risk. Nonadherence to treatment recommendations Plan: I reviewed her case and ongoing treatment plan. Debridement was performed as noted above and in the clinical panel (subcutaneous). 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 It is noted her body habitus is limiting the results. To continue diuresis plan with her primary care physician; she has not been able to start this yet. A referral was provided to Dr. Kunz and she completed the planned intervention; to continue as advised. She already had her intervention completed and had scheduled follow-up. Today, a multilayer later compression dressing was applied to the lower extremities. She is advised to use CircAid compression in addition at home. A referral to the lymphedema clinic was also provided and potential intervention such as lymphatic massage, other compression pumps and garments were discussed. A compression pump has been received and she was advised to continue this twice daily. Due to her increasing continued weeping and drainage I recommend application of dry to reduce pain max, drainage, and tissue compromise. This will be changed by home health a couple times a week and was applied today. . We discussed in depth the importance of edema control. To keep legs elevated above heart while resting. To avoid lying directly on the wound while seated or in bed. To avoid idle standing or sitting for prolonged time. To monitor for signs of infection. This is not noted today. She has night pain to the wound and a tramadol prescription was provided. She was advised on safe and proper use only as needed at bedtime. RTC (wound center) in 1 week as scheduled or call sooner if she has questions or concerns.
[2018-01-08 13:28] VITALS: BP 128/75; PULSE 69; RESP 18; TEMP 36.4
--- NOTE | 2018-01-08 14:34 | PCM.WC.PN ---
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 layer exposed Status: Chronic Current Visit: Yes Code(s): L97.912 - 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chronic ulcer of unspecified part of right lower leg with fat layer exposed (2) Ulcer of left lower extremity with fat layer exposed Status: Chronic Current Visit: Yes Code(s): L97.922 - 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chronic ulcer of unspecified part of left lower leg with fat layer exposed (3) Right leg pain Status: Chronic Current Visit: Yes Code(s): M79.604 - Pain in right leg (4) Left leg pain Status: Chronic Current Visit: Yes Code(s): M79.605 - Pain in left leg (5) Delayed wound healing Status: Chronic Current Visit: Yes Code(s): T14.8 - Other injury of unspecified body region (6) Lymphedema of lower extremity Status: Chronic Current Visit: Yes Qualifiers: Laterality: bilateral Qualified Code(s): I89.0 - Lymphedema, not elsewhere classified Code(s): I89.0 - Lymphedema, not elsewhere classified (7) Venous insufficiency (chronic) (peripheral) Status: Chronic Current Visit: Yes Code(s): I87.2 - Venous insufficiency (chronic) (peripheral) (8) Malnutrition Status: Chronic Current Visit: Yes Code(s): E46 - Unspecified protein-calorie malnutrition (9) Edema leg Status: Chronic Current Visit: Yes Code(s): R60.0 - Localized edema Type of Wound Date of Service: 01/08/18 Chief Complaint: Leg ulcers and swelling. History of Wound: She is following up for right and left leg ulcerations that have delayed healing. She denies toe pain or further drainage. She denies odor, loss of appetite, N/V/F/C/loss of appetite. She had previous venous vascular surgery Dr. Kunz. A referral for lymphedema clinic including lymphedema pumps was provided; and she utilizes these twice daily. Her leg swelling has decreased. She is not able to take Lasix as recommended due to urination frequency; she already has incontinence. She has continued pronounced leg weeping and drainage. She has decreased weeping and increased comfort with her new wound care product was applied last week. Progress of Wound: Improving - Physical Exam Vital Signs Temp Pulse Resp BP 97.5 F L 69 18 128/75 H 01/08/18 13:28 01/08/18 13:28 01/08/18 13:28 01/08/18 13:28 General: Alert, Oriented x3, Cooperative HEENT: Atraumatic Extremities: No cyanosis, Capillary Refill Less than 3 Seconds, No Calf Tenderness - Negative Cassie and Benitez bilateral, Diminished Peripheral Pulses, Edema Skin: Ulcer/ Wound - No purulence, no erythema, streaking, no. Decreased maceration and moisture bilateral lower extremities. There is decreased granulation tissue increase of hemorrhagic tissue which is decreased granulation tissue and increased subhemorrhagic tissue suggesting healing, - - Atrophic skin bilateral Wound Measurements and Assessment WC - Nurse 1 - General Ulcer Measurement Start: 12/25/17 16:17 Freq: Status: Active Protocol: Activity Type Activity Date Activity User E-Sign Co-Sign Detail Recorded Client Recorded Date Recorded By Document 01/08/18 13:28 RB [id number] 01/08/18 13:49 RB 01/08/18 13:28 Wound Center Nurse 1 [Ulcer Assessment] #8 [id number] CALF cluster -Combined with other wound No -Current Size (cm) - Length 9 -Current Size (cm) - Width 8.5 -Current Size (cm) - Depth 0.1 -Total Square Cm 76.5 -Tunneling No -Undermining/Tunneling No -Circular Undermining No -Classification - Thickness Full Thickness with Exposed Support Structure -Exudate Amt Large (67-100%) -Exudate Type Serosanguineous -Wound Margin Distinct, Outline Attached -Granulation Amt Medium (34-66%) -Granulation Quality [place] -Slough/Fibrin Yes -Necrosis Amt Large (67-100%) -Necrotic Tissue Type Adherent Slough -Structure Exposed N/A -Texture (Vickie-wound Skin Appearance) Assessed -Moisture (Vickie-wound Skin Appearance Maceration ) -Color (Vickie-wound Skin Appearance) Assessed -Temperature (Vickie-wound Skin No Abnormality Appearance) (Pt Warm) -Tenderness on Palpation (Vickie-wound No Skin Appearance) -Ulcer Cleansing Wound Cleanser -Foul Odor after Cleansing No -Anesthetic Used 5% Lidocaine Gel #4 L Lat LE cluster -Combined with other wound No -Current Size (cm) - Length 8.5 -Current Size (cm) - Width 28.5 -Current Size (cm) - Depth 0.2 -Total Square Cm 242.25 -Epithelialization None Present -Tunneling No -Undermining/Tunneling No -Circular Undermining No -Classification - Thickness Full Thickness without Exposed Support Structure -Exudate Amt Large (67-100%) -Exudate Type Serosanguineous -Wound Margin Distinct, Outline Attached -Granulation Amt Medium (34-66%) -Granulation Quality [place] -Slough/Fibrin Yes -Necrosis Amt Large (67-100%) -Necrotic Tissue Type Adherent Slough -Structure Exposed N/A -Texture (Vickie-wound Skin Appearance) Assessed -Moisture (Vickie-wound Skin Appearance Maceration ) -Color (Vickie-wound Skin Appearance) Assessed -Temperature (Vickie-wound Skin No Abnormality Appearance) (Pt Warm) -Tenderness on Palpation (Vickie-wound No Skin Appearance) -Ulcer Cleansing Wound Cleanser -Foul Odor after Cleansing No -Anesthetic Used 5% Lidocaine Gel [Edema Assessment] -Lower Limb Edema Present Yes -Right Calf (cm) 58.5 -Right Ankle (cm) 24.6 -Left Calf (cm) 52 -Left Ankle (cm) 24.6 Musculoskeletal: No Tenderness to Palpation of Joints or Extremities, Muscle Wasting Neurological: Sensory exam intact to light touch and pain, - Psych/Mental Status: Normal Affect, Appropriate Debridement Note Post-Debridement Measurements/Treatment WC - Nurse 2 - General Ulcer CM Notes Start: 12/25/17 16:17 Freq: Status: Active Protocol: Activity Type Activity Date Activity User E-Sign Co-Sign Detail Recorded Client Recorded Date Recorded By Document 12/25/17 17:00 [id number] 12/25/17 17:12 Document 01/01/18 14:24 [id number] 01/01/18 14:27 12/25/17 01/01/18 17:00 14:24 Wound Center Nurse 2 #8 [id number] CALF cluster -Time 17:01 14:24 -Correct Patient Yes Yes -Correct Side, Site, Position Yes Yes -Correct Procedure Yes Yes -Procedure Performed Yes Yes -Type of Procedure Debridement Debridement -Clinical Debridement Subcutaneous Subcutaneous -Post Debridement Size (cm) - Length 6.6 6 -Post Debridement Size (cm) - Width 6.6 10 -Post Debridement Size (cm) - Depth 0.2 0.2 -Total Square Cm 43.56 60 -Wound/Ulcer Outcome Not Healed Not Healed -Ulcer Cleansing Rinsed/ Rinsed/ Irrigated with Irrigated with Saline Saline -Foul Odor after Cleansing No No -Bioengineered Tissue No No -Topical Lidocaine (%) 4 -Lidocaine (ml) 5 -Bleeding Controlled with NA Pressure -Other 80% debrided today -Treatment Response Procedure Procedure Tolerated Well Tolerated Well #4 L Lat LE cluster -Time 17:01 14:26 -Correct Patient Yes Yes -Correct Side, Site, Position Yes Yes -Correct Procedure Yes Yes -Procedure Performed Yes Yes -Type of Procedure Debridement Debridement -Clinical Debridement Subcutaneous Subcutaneous -Post Debridement Size (cm) - Length 5.5 5 -Post Debridement Size (cm) - Width 10.1 8 -Post Debridement Size (cm) - Depth 0.2 0.2 -Total Square Cm 55.55 40 -Wound/Ulcer Outcome Not Healed Not Healed -Ulcer Cleansing Not Cleansed Rinsed/ Irrigated with Saline -Foul Odor after Cleansing No No -Bioengineered Tissue No No -Topical Lidocaine (%) 4 -Lidocaine (ml) 5 -Bleeding Controlled with NA Pressure -Other 15% of ulcer debrided. -Treatment Response Procedure Procedure Tolerated Well Tolerated Well #3- RT LE CLUSTER -Time 17:02 -Correct Patient Yes -Correct Side, Site, Position Yes -Correct Procedure Yes -Procedure Performed Yes -Type of Procedure Debridement -Clinical Debridement Subcutaneous -Post Debridement Size (cm) - Length 5.0 -Post Debridement Size (cm) - Width 3.1 -Post Debridement Size (cm) - Depth 0.2 -Total Square Cm 15.50 -Wound/Ulcer Outcome Not Healed -Ulcer Cleansing Rinsed/ Irrigated with Saline -Foul Odor after Cleansing No -Bioengineered Tissue No -Topical Lidocaine (%) 4 -Lidocaine (ml) 5 -Bleeding Controlled with NA -Treatment Response Procedure Tolerated Well Pain Scale: 0-10 Numeric Is Patient Pain Free? Yes Yes Wound debrided: leg Laterality: Right Type of Debridement: Excisional debridement Anesthesia Used: 5% Lidocaine Gel Depth: in the subcutaneous layer Percentage of wound debrided: 80 Instrument Used: 5mm curette Tissue Removed: fibrous, devitalized subcutaneous, biofilm, slough Severity: Fat Layer Exposed Amount of bleeding with debridement: Mild Bleeding Controlled with: Pressure Patient tolerated procedure well - Additional Wound Wound debrided: leg Laterality: Left Type of Debridement: Excisional debridement Anesthesia Used: 5% Lidocaine Gel Depth: in the subcutaneous layer Percentage of wound debrided: - - 15% Instrument Used: 5mm curette Tissue Removed: fibrous, devitalized subcutaneous, biofilm, slough Severity: Fat Layer Exposed Amount of bleeding with debridement: Mild Bleeding Controlled with: Pressure Patient tolerated procedure: Patient tolerated procedure well Assessment/Plan Active Problems Ulcer of left lower extremity with fat layer exposed (Chronic) Right leg pain (Chronic) Left leg pain (Chronic) Delayed wound healing (Chronic) Lymphedema of lower extremity (Chronic) Venous insufficiency (chronic) (peripheral) (Chronic) 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ulcer of right lower extremity with fat layer exposed (Chronic) Malnutrition (Chronic) Edema leg (Chronic) Assessment: Right leg ulcers with fat layer exposed. left leg ulcer with fat layer exposed. leg edema, lymphedema. malnutrition. venous insufficiency. delayed healing. Gait instability and continued fall risk. Nonadherence to treatment recommendations Plan: I reviewed her case and ongoing treatment plan. Debridement was performed as noted above and in the clinical panel (subcutaneous). 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 It is noted her body habitus is limiting the results. To continue diuresis plan with her primary care physician; she has not been able to start this yet. A referral was provided to Dr. Kunz and she completed the planned intervention; to continue as advised. She already had her intervention completed and had scheduled follow-up. Today, a multilayer later compression dressing was applied to the lower extremities. She is advised to use CircAid compression in addition at home. A referral to the lymphedema clinic was also provided and potential intervention such as lymphatic massage, other compression pumps and garments were discussed. A compression pump has been received and she was advised to continue this twice daily. This is uncomfortable for her but she is going to continue use due to her increasing continued weeping and drainage I recommend application of dry to reduce pain, drainage, and tissue compromise. This will be changed by home health a couple times a week and was applied today. She is doing well with this so far and demonstrates less periwound moisture and inflammation. . We discussed in depth the importance of edema control. To keep legs elevated above heart while resting. To avoid lying directly on the wound while seated or in bed. To avoid idle standing or sitting for prolonged time. To monitor for signs of infection. This is not noted today. She has night pain to the wound and a tramadol prescription was provided. She was advised on safe and proper use only as needed at bedtime. RTC (wound center) in 1 week as scheduled or call sooner if she has questions or concerns.
== END 2018-01-09 23:59 ==
LOC: WC 01:30
PROVIDERS: Family Provider Internal Medicine; PCP Internal Medicine; Visit Provider Podiatrist
DX: E11.622 Type 2 diabetes mellitus with other skin ulcer (principal); I87.2 Venous insufficiency (chronic) (peripheral); E11.42 Type 2 diabetes mellitus with diabetic polyneuropathy; I89.0 Lymphedema, not elsewhere classified; L97.822 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chronic ulcer of other part of left lower leg with fat layer exposed; L97.812 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chronic ulcer of other part of right lower leg with fat layer exposed; E46 Unspecified protein-calorie malnutrition; Z91.81 History of falling; R60.0 Localized edema
CPT/HCPCS: 11042; 11045

== ENCOUNTER 2018-02-05 09:46 | Outpatient (RCR) | payer MEDICARE, OTHER, SELFPAY ==
[2018-01-10 00:28] VITALS: BP 128/75; PULSE 69; RESP 18; TEMP 36.4
[2018-02-05 13:19] VITALS: BP 140/76; PULSE 92; RESP 18; TEMP 36.2
[2018-02-05 15:07] LABS: Absolute Lymphocyte Count 0.91 X10^3/ul (0.83-4.51); Absolute Neutrophil Count 8.9 X10^3/uL (2.0-7.7); Basophil# 0.03 X10^3/uL; Basophil% 0.3 % (0-1); Eosinophil# 0.48 X10^3/uL; Eosinophils% 4.3 % (0-5); Hematocrit 34.6 % (37-47); Hemoglobin 10.6 g/dl (12.0-15.0); Lymphocyte # 0.91 X10^3/ul (4.0); Lymphocyte % 8.2 % (19-41); Mean Corp Hgb Conc 30.6 g/gl (32-36); Mean Corpuscular Hgb 25.3 pg (27.0-32.0); Mean Corpuscular Volume 82.6 fL (81-99); Mean Platelet Vol. 8.2 fl (6.2-12.0); Monocyte# 0.79 X10^3/uL; Monocyte% 7.1 % (0-10); Neutrophil % 79.9 % (47-70); Platelet Count 431 K/mm3 (150-450); RBC Distribution Width SD 48.8 fl (35.1-43.9); Red Blood Count 4.19 M/mm3 (4.2-5.4); White Blood Count 11.1 K/mm3 (4.4-11.0)
[2018-02-05 15:10] LABS: POSITIVE COUNT NO; POSITIVE DIFFERENTIAL NO; POSITIVE MORPHOLOGY NO
[2018-02-05 15:20] LABS: ALB/GLOB Ratio 0.5 RATIO (0.9-2.4); AST(SGOT) 22 U/L (15-37); Alanine Aminotransfer ALT/SGPT 8 U/L (13-56); Albumin, Serum 2.6 g/dL (3.2-5.0); Alkaline Phosphatase 101 U/L (45-117); Anion Gap 6 (5-15); BUN 38 mg/dL (7-18); BUN/Creat Ratio 47.3 RATIO (10-20); Calcium,Total 8.7 mg/dL (8.5-10.1); Chloride 102 mmol/L (98-107); EST Glomerular Filtration Rate 75 mL/min (>60); Est Glom Filt Rate - Afr Amer 91 mL/min (>60); Globulin 5.5 g/dL (2.2-4.2); Glucose 82 mg/dL (74-106); Potassium 4.5 mmol/L (3.5-5.1); Protein, Total 8.1 g/dL (6.4-8.2); Sodium Level 137 mmol/L (136-145)
[2018-02-05 15:26] LABS: Hemoglobin A1c 6.8 % (4.2-6.3)
--- NOTE | 2018-02-05 16:00 | PCM.WC.PN ---
(1) Ulcer of left lower extremity with fat layer exposed Status: Chronic Current Visit: Yes Code(s): L97.922 - 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chronic ulcer of unspecified part of left lower leg with fat layer exposed (2) Right leg pain Status: Chronic Current Visit: Yes Code(s): M79.604 - Pain in right leg (3) Left leg pain Status: Chronic Current Visit: Yes Code(s): M79.605 - Pain in left leg (4) Delayed wound healing Status: Chronic Current Visit: Yes Code(s): T14.8 - Other injury of unspecified body region (5) Chronic ulcer of right leg with fat layer exposed Status: Chronic Current Visit: Yes Code(s): L97.912 - 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chronic ulcer of unspecified part of right lower leg with fat layer exposed (6) Lymphedema of lower extremity Status: Chronic Current Visit: Yes Qualifiers: Code(s): I89.0 - Lymphedema, not elsewhere classified (7) Venous insufficiency (chronic) (peripheral) Status: Chronic Current Visit: Yes Code(s): I87.2 - Venous insufficiency (chronic) (peripheral) (8) Malnutrition Status: Chronic Current Visit: Yes Code(s): E46 - Unspecified protein-calorie malnutrition (9) Edema leg Status: Chronic Current Visit: Yes Code(s): R60.0 - Localized edema Type of Wound Date of Service: 02/05/18 Chief Complaint: Leg ulcers and swelling. History of Wound: She is following up for right and left leg ulcerations that have delayed healing. She denies toe pain or further drainage. She has a new odor and increased weeping. She denies loss of appetite, N/V/F/C/loss of appetite. She had previous venous vascular surgery Dr. Kunz. A referral for lymphedema clinic including lymphedema pumps was provided; and she utilizes these when someone is available to help her put these on. Her leg swelling has decreased. She is not able to take Lasix as recommended due to urination frequency; she already has incontinence. She has continued pronounced leg weeping and drainage. she would benefit from increased home health frequency. She confirms she is not a diabetic however has not been screened recently. She is with her daughter today. Progress of Wound: left Improving. right deteriorating - Physical Exam Vital Signs Temp Pulse Resp BP 97.1 F L 92 18 140/76 H 02/05/18 13:19 02/05/18 13:19 02/05/18 13:19 02/05/18 13:19 General: Alert, Oriented x3, Cooperative Extremities: No cyanosis, Capillary Refill Less than 3 Seconds, No Calf Tenderness - negative dian and jackson signs bilateral, Diminished Peripheral Pulses, Edema, - - peripheral skin is atrophic Skin: Ulcer/ Wound - no purlence, no erythema, no streaking noted. thereis increased bandage drainage and odor to the right. There is also increased fibrous tissue and devitalized tissue to the posterior right leg wound site Wound Measurements and Assessment WC - Nurse 1 - General Ulcer Measurement Start: 02/05/18 13:19 Freq: Status: Active Protocol: Activity Type Activity Date Activity User E-Sign Co-Sign Detail Recorded Client Recorded Date Recorded By Document 02/05/18 13:19 [facility] [id number] 02/05/18 13:43 [facility] 02/05/18 13:19 Wound Center Nurse 1 [Ulcer Assessment] #8 [id number] CALF cluster -Combined with other wound No -Current Size (cm) - Length 7.2 -Current Size (cm) - Width 8.7 -Current Size (cm) - Depth 0.2 -Total Square Cm 62.64 -Date of Last Picture (Recall this 02/05/18 field) -Photo Taken Yes -Epithelialization None Present -Tunneling No -Undermining/Tunneling No -Circular Undermining No -Exudate Amt Large (67-100%) -Exudate Type Serosanguineous -Wound Margin Distinct, Outline Attached -Granulation Amt Small (1-33%) -Granulation Quality [place] -Slough/Fibrin Yes -Necrosis Amt Large (67-100%) -Necrotic Tissue Type Adherent Slough -Structure Exposed N/A -Texture (Vickie-wound Skin Appearance) Scarring -Moisture (Vickie-wound Skin Appearance Maceration ) Weeping -Color (Vickie-wound Skin Appearance) Erythema Hemosiderin Staining -Temperature (Vickie-wound Skin No Abnormality Appearance) (Pt Warm) -Tenderness on Palpation (Vickie-wound No Skin Appearance) -Ulcer Cleansing Wound Cleanser -Foul Odor after Cleansing No -Anesthetic Used 4% Lidocaine Solution #4 L Lat LE cluster -Combined with other wound No -Current Size (cm) - Length 4.9 -Current Size (cm) - Width 4.8 -Current Size (cm) - Depth 0.2 -Total Square Cm 23.52 -Date of Last Picture (Recall this 02/05/18 field) -Photo Taken Yes -Epithelialization None Present -Tunneling No -Undermining/Tunneling No -Circular Undermining No -Exudate Amt Large (67-100%) -Exudate Type Serosanguineous -Wound Margin Distinct, Outline Attached -Granulation Amt Small (1-33%) -Granulation Quality Red -Slough/Fibrin Yes -Necrosis Amt Large (67-100%) -Necrotic Tissue Type Adherent Slough -Structure Exposed N/A -Texture (Vickie-wound Skin Appearance) Scarring -Moisture (Vickie-wound Skin Appearance Maceration ) Weeping -Color (Vickie-wound Skin Appearance) Erythema Hemosiderin Staining -Temperature (Vickie-wound Skin No Abnormality Appearance) (Pt Warm) -Tenderness on Palpation (Vickie-wound No Skin Appearance) -Ulcer Cleansing Wound Cleanser -Foul Odor after Cleansing No -Anesthetic Used 4% Lidocaine Solution [Edema Assessment] -Lower Limb Edema Present Yes -Right Calf (cm) 54.9 -Right Ankle (cm) 24.9 -Left Calf (cm) 50 -Left Ankle (cm) 23.9 WC - Nurse 2 - General Ulcer CM Notes Start: 02/05/18 13:19 Freq: Status: Active Protocol: Activity Type Activity Date Activity User E-Sign Co-Sign Detail Recorded Client Recorded Date Recorded By Document 02/05/18 13:52 [id number] 02/05/18 14:03 02/05/18 13:52 Wound Center Nurse 2 [Procedure/Treatment] #8 [id number] CALF cluster -Time 13:56 -Correct Patient Yes -Correct Side, Site, Position Yes -Correct Procedure Yes -Procedure Performed Yes -Type of Procedure Debridement -Clinical Debridement Subcutaneous -Post Debridement Size (cm) - Length 7.3 -Post Debridement Size (cm) - Width 8.8 -Post Debridement Size (cm) - Depth 0.2 -Total Square Cm 64.24 -Wound/Ulcer Outcome Not Healed -Ulcer Cleansing Rinsed/ Irrigated with Saline -Foul Odor after Cleansing No -Bioengineered Tissue No -Bleeding Controlled with Pressure -Treatment Response Procedure Tolerated Well #4 L Lat LE cluster -Time 13:56 -Correct Patient Yes -Correct Side, Site, Position Yes -Correct Procedure Yes -Procedure Performed Yes -Type of Procedure Debridement -Clinical Debridement Subcutaneous -Post Debridement Size (cm) - Length 5 -Post Debridement Size (cm) - Width 4.8 -Post Debridement Size (cm) - Depth 0.2 -Total Square Cm 24.0 -Wound/Ulcer Outcome Not Healed -Ulcer Cleansing Not Cleansed -Foul Odor after Cleansing No -Bioengineered Tissue No -Bleeding Controlled with Pressure -Treatment Response Procedure Tolerated Well [See Physician Procedure note for Specifics] Pain Scale: 0-10 Numeric [Pain] -Is Patient Pain Free? Yes Musculoskeletal: No Tenderness to Palpation of Joints or Extremities, Muscle Wasting, - - compartments lower extremity are soft bilateral Neurological: Sensory exam intact to light touch and pain, - Psych/Mental Status: Normal Affect, Appropriate Debridement Note Post-Debridement Measurements/Treatment WC - Nurse 2 - General Ulcer CM Notes Start: 02/05/18 13:19 Freq: Status: Active Protocol: Activity Type Activity Date Activity User E-Sign Co-Sign Detail Recorded Client Recorded Date Recorded By Document 02/05/18 13:52 [id number] 02/05/18 14:03 02/05/18 13:52 Wound Center Nurse 2 #8 [id number] CALF cluster -Time 13:56 -Correct Patient Yes -Correct Side, Site, Position Yes -Correct Procedure Yes -Procedure Performed Yes -Type of Procedure Debridement -Clinical Debridement Subcutaneous -Post Debridement Size (cm) - Length 7.3 -Post Debridement Size (cm) - Width 8.8 -Post Debridement Size (cm) - Depth 0.2 -Total Square Cm 64.24 -Wound/Ulcer Outcome Not Healed -Ulcer Cleansing Rinsed/ Irrigated with Saline -Foul Odor after Cleansing No -Bioengineered Tissue No -Bleeding Controlled with Pressure -Treatment Response Procedure Tolerated Well #4 L Lat LE cluster -Time 13:56 -Correct Patient Yes -Correct Side, Site, Position Yes -Correct Procedure Yes -Procedure Performed Yes -Type of Procedure Debridement -Clinical Debridement Subcutaneous -Post Debridement Size (cm) - Length 5 -Post Debridement Size (cm) - Width 4.8 -Post Debridement Size (cm) - Depth 0.2 -Total Square Cm 24.0 -Wound/Ulcer Outcome Not Healed -Ulcer Cleansing Not Cleansed -Foul Odor after Cleansing No -Bioengineered Tissue No -Bleeding Controlled with Pressure -Treatment Response Procedure Tolerated Well Pain Scale: 0-10 Numeric Is Patient Pain Free? Yes Wound debrided: leg clusters Laterality: Left Type of Debridement: Excisional debridement Anesthesia Used: 5% Lidocaine Gel Depth: in the subcutaneous layer Percentage of wound debrided: 100 Tissue Removed: fibrous, devitalized subcutaneous, biofilm, slough Severity: Fat Layer Exposed Amount of bleeding with debridement: Mild Bleeding Controlled with: Pressure Patient tolerated procedure well - Additional Wound Wound debrided: leg cluster Laterality: Right Type of Debridement: Excisional debridement Anesthesia Used: 5% Lidocaine Gel Depth: in the subcutaneous layer Percentage of wound debrided: 100 Instrument Used: 5mm curette Severity: Limited To Skin Breakdown - fibrous, devitalized subcutaneous, biofilm, slough Amount of bleeding with debridement: Mild Bleeding Controlled with: Pressure Patient tolerated procedure: Patient tolerated procedure well, Patient did not tolerate procedure well Assessment/Plan Active Problems Ulcer of left lower extremity with fat layer exposed (Chronic) Right leg pain (Chronic) Left leg pain (Chronic) Delayed wound healing (Chronic) Chronic ulcer of right leg with fat layer exposed (Chronic) Lymphedema of lower extremity (Chronic) Venous insufficiency (chronic) (peripheral) (Chronic) Malnutrition (Chronic) Edema leg (Chronic) Assessment: Right leg ulcers with fat layer exposed - deteriorated. left leg ulcer with fat layer exposed. leg edema, lymphedema. malnutrition. venous insufficiency. delayed healing. Gait instability and continued fall risk. Nonadherence to treatment recommendations Plan: I reviewed her case and ongoing treatment plan. Debridement was performed as noted above and in the clinical panel (subcutaneous). 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 It is noted her body habitus is limiting the results. To continue diuresis plan with her primary care physician; she has not been able to start this yet. A referral was provided to Dr. Kunz and she completed the planned intervention; to continue as advised. She already had her intervention completed and had scheduled follow-up. Today, a multilayer later compression dressing was applied to the lower extremities. She is advised to use CircAid compression in addition at home. A referral to the lymphedema clinic was also provided and potential intervention such as lymphatic massage, other compression pumps and garments were discussed. A compression pump has been received and she was advised to continue this twice daily. This is uncomfortable for her but she is going to continue use due to her increasing continued weeping and drainage I recommend application of dry to reduce pain, drainage, and tissue compromise. This will be changed by home health a couple times a week and was applied today. An order was placed today to increase the visits to daily. She may also want to consider [facility] facility placement if she is not able to have the appropriate support at home with home health and family help. She is doing well with this so far and demonstrates less periwound moisture and inflammation. . We discussed in depth the importance of edema control. To keep legs elevated above heart while resting. To avoid lying directly on the wound while seated or in bed. To avoid idle standing or sitting for prolonged time. To monitor for signs of infection. This is not noted today. She has night pain to the wound and a ibuprofen prescription was provided. She was advised on safe and proper use. Updated culture tissue specimen was obtained for aerobic and anearobic testing for the right limb due to the status change. updated labs were also ordered including cbc, cmp, screeing hemoglobin A1C, crp and sedimentation rate. RTC (wound center) in 1 week with wound center provider (saturday closing noted) or call sooner if she has questions or concerns.
[2018-02-05 17:49] LABS: Erythrocyte Sedimentation Rate 75 mm/hr (0-30)
== END 2018-02-08 23:59 ==
LOC: WC 09:46
PROVIDERS: Family Provider Internal Medicine; PCP Internal Medicine; Visit Provider Podiatrist
DX: I87.2 Venous insufficiency (chronic) (peripheral) (principal); I83.028 Varicose veins of left lower extremity with ulcer other part of lower leg; L97.822 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chronic ulcer of other part of left lower leg with fat layer exposed; I89.0 Lymphedema, not elsewhere classified; M79.89 Other specified soft tissue disorders; M79.604 Pain in right leg; M79.605 Pain in left leg; R60.0 Localized edema; L97.811 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chronic ulcer of other part of right lower leg limited to breakdown of skin; R35.0 Frequency of micturition; R32 Unspecified urinary incontinence
CPT/HCPCS: 11042; 11045; 80053; 83036; 85025; 85652; 86140; 87070; 87075; 87076; 87077; 87186; 87205

== ENCOUNTER 2018-03-05 13:00 | Outpatient (RCR) | payer MEDICARE, OTHER, SELFPAY ==
[2018-02-09 00:29] VITALS: BP 140/76; PULSE 92; RESP 18; TEMP 36.2
[2018-02-10 15:35] VITALS: BP 134/80; PULSE 66; RESP 16; TEMP 36
--- NOTE | 2018-02-10 17:29 | HP.PCM_ITS ---
(1) Swelling of left lower extremity Status: Chronic Current Visit: Yes Code(s): M79.89 - Other specified soft tissue disorders (2) Swelling of right lower extremity Status: Chronic Current Visit: Yes Code(s): M79.89 - Other specified soft tissue disorders (3) Edema, leg Status: Chronic Current Visit: Yes Code(s): R60.0 - Localized edema (4) Chronic venous insufficiency Status: Chronic Current Visit: Yes Code(s): I87.2 - Venous insufficiency ( chronic) (peripheral) (5) Dependent edema Status: Chronic Current Visit: Yes Code(s): R60.9 - Edema, unspecified (6) Venous ulcer of left leg Status: Chronic Current Visit: Yes Code(s): I83.029 - Varicose veins of left lower extremity with ulcer of unspecified site; L97.929 - 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chronic ulcer of unspecified part of left lower leg with unspecified severity (7) Venous ulcer of right leg Status: Chronic Current Visit: Yes Code(s): I83.019 - Varicose veins of right lower extremity with ulcer of unspecified site; L97.919 - 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chronic ulcer of unspecified part of right lower leg with unspecified severity (8) Lymphedema of left leg Status: Chronic Current Visit: Yes Code(s): I89.0 - Lymphedema, not elsewhere classified (9) Lymphedema of right lower extremity Status: Chronic Current Visit: Yes Code(s): I89.0 - Lymphedema, not elsewhere classified (10) Obesity (BMI 30-39.9) Status: Chronic Current Visit: Yes Code(s): E66.9 - Obesity, unspecified (11) Parkinsons disease Status: Chronic Current Visit: Yes Code(s): G20 - Parkinson's disease (12) Immobility Status: Chronic Current Visit: Yes Code(s): Z74.09 - Other reduced mobility (13) Urinary incontinence Status: Chronic Current Visit: No Code(s): R32 - Unspecified urinary incontinence History of Present Illness Date of Service: 02/10/18 Chief Complaint: Bilateral lower extremity swelling, edema, and lymphedema; chronic venous insufficiency; bilateral calf ulcerations. History of Wound: This is a 72-year-old female with a long-standing history of chronic swelling, edema, and lymphedema in her lower extremities. She has had ulcerations in her lower extremities bilaterally for more than 1 year. She sleeps in a recliner, with her legs in a dependent position. She has been doing this for approximately 6 months. She suffers from Parkinson's disease, and has difficulties maneuvering herself into and out of a regular bed. She is not very active, and spends long hours each day in an idle sitting position. As result of her inactivity, she is not recruiting the calf and foot muscle pumps to aid venous return. Her last lower extremity arterial study was approximately 2 years ago, though was relatively normal. She has been under the care of Dr. Kolby Kunz, vascular surgeon, and has undergone staged, bilateral lower extremity venous ablation procedures. The specific nature of the procedures, and the success of the procedures, is not known. Despite these procedures, the patient has demonstrated no significant improvement. She continues to have massive swelling, edema, and lymphedema, and chronic, nonhealing ulcerations in the calves bilaterally. She denies a history of thrombophlebitis in the past. Recent cultures of her lower extremity ulcers were positive for Proteus mirabilis and Pseudomonas species. The patient was placed on Cipro and Augmentin orally, which she continues to take at this time. She has an appointment with Dr. Rodrigez next week, infectious disease specialist. She is currently using Dry Max and Jimy wraps to her lower extremities. She owns CircAid Velcro compression garments, but is not using. She also has rheumatic mechanical compression pumps, which she claims to be using once daily, though her compliance is in question. The ulcerations on her lower extremities are said to be highly exudative. She is not able to take Lasix as recommended due to urination frequency urinary incontinence. She is with her daughter today. Past Medical History Past Medical History: Chronic Problems Ulcer of left lower extremity with fat layer exposed (Chronic) Right leg pain (Chronic) Left leg pain (Chronic) Swelling of left lower extremity (Chronic) Swelling of right lower extremity (Chronic) Edema, leg (Chronic) Chronic venous insufficiency (Chronic) Dependent edema (Chronic) Venous ulcer of left leg (Chronic) Venous ulcer of right leg (Chronic) Lymphedema of left leg (Chronic) Lymphedema of right lower extremity (Chronic) Obesity (BMI 30-39.9) (Chronic) Parkinsons disease (Chronic) Immobility (Chronic) Urinary incontinence (Chronic) Tinea unguium (Chronic) Delayed wound healing (Chronic) Tibialis posterior dysfunction (Chronic) Walking difficulty due to ankle and foot (Chronic) Pain, foot, left, chronic (Chronic) Left tibialis posterior tendonitis (Chronic) Ulcer of left lower extremity with fat layer exposed (Chronic) Left ankle pain (Chronic) Left tibialis tendonitis (Chronic) Chronic ulcer of right leg with fat layer exposed (Chronic) Lymphedema of lower extremity (Chronic) Venous insufficiency (chronic) (peripheral) (Chronic) Diabetes mellitus with polyneuropathy (Chronic) 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ulcer of right lower extremity with fat layer exposed (Chronic) Ulcer of right leg (Chronic) Malnutrition (Chronic) Edema leg (Chronic) Surgical History: total knee arthroplasty - bilateral Allergies/Adverse Reactions: Allergies No Known Allergies Allergy (Verified 03/11/14 15:07) Home Medications: Ambulatory Orders Medication Instructions Recorded Carbidopa/Levodopa 2 mg PO TID 04/04/16 [Carbidopa-Levodopa 25-100 Tab] Diphenoxylate/Atrop [Lomotil] 1 tablet PO BID PRN PRN 04/04/16 Ropinirole HCl [Requip Xl] 8 mg PO DAILY 04/04/16 Lives: Alone Smoking Status: Former smoker - quit 45 yrs ago Tobacco Use: Non-smoker Alcohol: Occasional Drugs: None Review of Systems Constitutional: Denies: Chills, Fever, Weight Change Eyes: Denies: Pain, Vision Change HEENT: Denies: Difficulty Hearing, Difficulty Swallowing, Sinus Congestion Cardiovascular: Denies: Chest Pain, Palpitations Respiratory: Denies: Cough, Shortness of Breath Gastrointestinal: Denies: Diarrhea, Nausea, Vomiting Genitourinary: Denies: Dysuria, Hematuria Endocrine: Denies: Heat/ Cold Intolerance, Polydipsia, Polyuria Hematologic/ Lymphatic: Denies: Easy Bruising, Easy Bleeding - Physical Exam Vital Signs Temp Pulse Resp BP 96.8 F L 66 16 134/80 H 02/10/18 15:35 02/10/18 15:35 02/10/18 15:35 02/10/18 15:35 General: Alert, Oriented x3, Cooperative, No apparent distress, Well developed, Well nourished, - - The patient is obese. HEENT: Atraumatic, PERRLA, EOMI, Normocephalic Oral: Moist Mucosa Neck: No JVD Lungs: Normal air movement Abdomen: Non-Distended, Obese Extremities: No clubbing, No cyanosis, No Calf Tenderness, - - Severe swelling, edema, and lymphedema is noted in the lower extremities bilaterally. Large ulcerations are noted on each calf, highly irregular in shape. Dimensions are documented elsewhere. There is a large amount of bioburden and nonviable tissue present. Circumference measurements are documented elsewhere. Wound Measurements and Assessment WC - Nurse 1 - General Ulcer Measurement Start: 02/10/18 15:28 Freq: Status: Active Protocol: Activity Type Activity Date Activity User E-Sign Co-Sign Detail Recorded Client Recorded Date Recorded By Document 02/10/18 15:35 [id number] 02/10/18 15:47 02/10/18 15:35 Wound Center Nurse 1 [Ulcer Assessment] #8 [id number] CALF cluster -Combined with other wound No -Current Size (cm) - Length 14.0 -Current Size (cm) - Width 26.5 -Current Size (cm) - Depth 0.1 -Total Square Cm 371.00 -Photo Taken No -Epithelialization Small 1-33% -Tunneling No -Undermining/Tunneling No -Circular Undermining No -Exudate Amt Small (1-33%) -Exudate Type Serosanguineous -Wound Margin Distinct, Outline Attached -Granulation Amt Large (67-100%) -Granulation Quality [place] -Slough/Fibrin Yes -Necrosis Amt Large (67-100%) -Necrotic Tissue Type Adherent Slough -Structure Exposed None/Limited to Skin Breakdown -Texture (Vickie-wound Skin Appearance) Assessed Excoriation -Moisture (Vickie-wound Skin Appearance Weeping ) -Color (Vickie-wound Skin Appearance) No Abnormality Assessed -Temperature (Vickie-wound Skin No Abnormality Appearance) (Pt Warm) -Tenderness on Palpation (Vickie-wound Yes Skin Appearance) -Ulcer Cleansing Wound Cleanser -Foul Odor after Cleansing No -Anesthetic Used 4% Lidocaine Solution #4 L Lat LE cluster -Current Size (cm) - Length 12.4 -Current Size (cm) - Width 17.0 -Current Size (cm) - Depth 0.1 -Total Square Cm 210.80 -Photo Taken No -Epithelialization Small 1-33% -Tunneling No -Undermining/Tunneling No -Circular Undermining No -Exudate Amt Large (67-100%) -Exudate Type Serosanguineous -Wound Margin Distinct, Outline Attached -Granulation Amt Small (1-33%) -Granulation Quality [place] -Slough/Fibrin Yes -Necrosis Amt Large (67-100%) -Necrotic Tissue Type Adherent Slough -Structure Exposed None/Limited to Skin Breakdown -Texture (Vickie-wound Skin Appearance) Assessed Excoriation -Moisture (Vickie-wound Skin Appearance Assessed ) Weeping -Color (Vickie-wound Skin Appearance) No Abnormality Assessed -Temperature (Vickie-wound Skin No Abnormality Appearance) (Pt Warm) -Tenderness on Palpation (Vickie-wound Yes Skin Appearance) -Ulcer Cleansing Wound Cleanser -Foul Odor after Cleansing No -Anesthetic Used 4% Lidocaine Solution [Edema Assessment] -Lower Limb Edema Present Yes -Right Calf (cm) 54.2 -Right Ankle (cm) 24.3 -Left Calf (cm) 51.3 -Left Ankle (cm) 24.8 WC - Nurse 2 - General Ulcer CM Notes Start: 02/10/18 15:28 Freq: Status: Active Protocol: Activity Type Activity Date Activity User E-Sign Co-Sign Detail Recorded Client Recorded Date Recorded By Document 02/10/18 16:57 [email or web address] [id number] 02/10/18 17:04 [email or web address] 02/10/18 16:57 Wound Center Nurse 2 [Procedure/Treatment] #8 [id number] CALF cluster -Time 16:57 -Correct Patient Yes -Correct Side, Site, Position Yes -Correct Procedure Yes -Procedure Performed No -Wound/Ulcer Outcome Not Healed -Ulcer Cleansing Not Cleansed -Foul Odor after Cleansing No -Bioengineered Tissue No -Topical Lidocaine (%) 4 -Lidocaine (ml) 15 -Bleeding Controlled with NA #4 L Lat LE cluster -Time 16:58 -Correct Patient Yes -Correct Side, Site, Position Yes -Correct Procedure Yes -Procedure Performed No -Wound/Ulcer Outcome Not Healed -Ulcer Cleansing Not Cleansed -Foul Odor after Cleansing No -Bioengineered Tissue No -Lidocaine (ml) 15 -Bleeding Controlled with NA [See Physician Procedure note for Specifics] Neurological: Cranial nerves II-XII grossly intact, Neuro grossly intact Psych/Mental Status: Normal Affect, Appropriate, Alert and oriented to time, place, person, mood and affect Debridement Note Post-Debridement Measurements/Treatment WC - Nurse 2 - General Ulcer CM Notes Start: 02/10/18 15:28 Freq: Status: Active Protocol: Activity Type Activity Date Activity User E-Sign Co-Sign Detail Recorded Client Recorded Date Recorded By Document 02/10/18 16:57 [email or web address] [id number] 02/10/18 17:04 [email or web address] 02/10/18 16:57 Wound Center Nurse 2 #8 [id number] CALF cluster -Time 16:57 -Correct Patient Yes -Correct Side, Site, Position Yes -Correct Procedure Yes -Procedure Performed No -Wound/Ulcer Outcome Not Healed -Ulcer Cleansing Not Cleansed -Foul Odor after Cleansing No -Bioengineered Tissue No -Topical Lidocaine (%) 4 -Lidocaine (ml) 15 -Bleeding Controlled with NA #4 L Lat LE cluster -Time 16:58 -Correct Patient Yes -Correct Side, Site, Position Yes -Correct Procedure Yes -Procedure Performed No -Wound/Ulcer Outcome Not Healed -Ulcer Cleansing Not Cleansed -Foul Odor after Cleansing No -Bioengineered Tissue No -Lidocaine (ml) 15 -Bleeding Controlled with NA Laterality: Right - Calf Type of Debridement: Excisional debridement Anesthesia Used: 4% Lidocaine Solution Depth: Down to and including healthy tissue, in the subcutaneous layer Percentage of wound debrided: 100 Instrument Used: 5mm curette Severity: Fat Layer Exposed Amount of bleeding with debridement: Mild Bleeding Controlled with: Compression and gauze Patient tolerated procedure well - Additional Wound Laterality: Left - Calf Type of Debridement: Excisional debridement Anesthesia Used: 4% Lidocaine Solution Depth: Down to and including healthy tissue, in the subcutaneous layer Percentage of wound debrided: 100 Instrument Used: 5mm curette Severity: Fat Layer Exposed Amount of bleeding with debridement: Mild Bleeding Controlled with: Compression and gauze Patient tolerated procedure: Patient tolerated procedure well Assessment/Plan Active Problems Swelling of left lower extremity (Chronic) Swelling of right lower extremity (Chronic) Edema, leg (Chronic) Chronic venous insufficiency (Chronic) Dependent edema (Chronic) Venous ulcer of left leg (Chronic) Venous ulcer of right leg (Chronic) Lymphedema of left leg (Chronic) Lymphedema of right lower extremity (Chronic) Obesity (BMI 30-39.9) (Chronic) Parkinsons disease (Chronic) Immobility (Chronic) Assessment: This is a 72-year-old female with Parkinson's disease. She suffers from severe swelling, edema, and lymphedema in her lower extremities, associated with ulcerations bilaterally. The patient is relatively immobile. She sleeps in a recliner, with her legs in a dependent position. She sits idlely for long periods each day. Recent cultures have been positive for Proteus and Pseudomonas, the patient is now on oral Cipro and Augmentin. The patient has been using Dry Max and Jimy wraps to her lower extremities. She has previously undergone bilateral venous ablation procedures, though the nature of the procedures and their success is unknown. It is felt that the patient would benefit from lifestyle modification. Enhanced efforts at elevation of the patient's lower extremities is recommended. The patient has been advised to sleep with her legs level with her heart, if not higher. Leg elevation has been recommended even during daytime hours. She has been advised to refrain from prolonged idle sitting. Activity has been encouraged, the patient is somewhat limited due to her Parkinson's disease. It is likely that the patient would benefit from enhanced compression to the lower extremities. A noninvasive lower extremity arterial study will be obtained to assess the patient's arterial status, which will determine whether enhanced degrees of compression can be implemented. The patient has been advised to implement the use of her pneumatic compression pumps at least 2 or 3 times daily. She has been advised to continue her current antibiotic regimen. Optimization of the patient's nutrition has been recommended as well. The patient will return in 1 week to resume care by Dr. Interiano. The patient is not a smoker. Influenza vaccine was not administered today. The patient weighs 200 pounds. She stands 5 feet 1 inch tall. Her BMI is 37.8, placing her in a class II weight category. Weight loss has been recommended, and collaboration with her primary care physician has been advised. Plan: It is felt that the patient would benefit from lifestyle modification. Enhanced efforts at elevation of the patient's lower extremities is recommended. The patient has been advised to sleep with her legs level with her heart, if not higher. Leg elevation has been recommended even during daytime hours. She has been advised to refrain from prolonged idle sitting. Activity has been encouraged, the patient is somewhat limited due to her Parkinson's disease. It is likely that the patient would benefit from enhanced compression to the lower extremities. A noninvasive lower extremity arterial study will be obtained to assess the patient's arterial status, which will determine whether enhanced degrees of compression can be implemented. The patient has been advised to implement the use of her pneumatic compression pumps at least 2 or 3 times daily. She has been advised to continue her current antibiotic regimen. Optimization of the patient's nutrition has been recommended as well. The patient will return in 1 week to resume care by Dr. Interiano. The patient is not a smoker. Influenza vaccine was not administered today. The patient weighs 200 pounds. She stands 5 feet 1 inch tall. Her BMI is 37.8, placing her in a class II weight category. Weight loss has been recommended, and collaboration with her primary care physician has been advised.
[2018-02-19 09:31] VITALS: RESP 16; TEMP 37.1
--- NOTE | 2018-02-19 11:42 | PN.PCM_ITS ---
(1) Ulcer of left lower extremity with fat layer exposed Status: Chronic Current Visit: Yes Code(s): L97.922 - 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chronic ulcer of unspecified part of left lower leg with fat layer exposed (2) Ulcer of left lower extremity with fat layer exposed Status: Chronic Current Visit: Yes Code(s): L97.922 - 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chronic ulcer of unspecified part of left lower leg with fat layer exposed (3) Cellulitis of leg, right Status: Chronic Current Visit: Yes Code(s): L03.115 - Cellulitis of right lower limb (4) Right leg pain Status: Chronic Current Visit: Yes Code(s): M79.604 - Pain in right leg (5) Left leg pain Status: Chronic Current Visit: Yes Code(s): M79.605 - Pain in left leg (6) Edema, leg Status: Chronic Current Visit: Yes Code(s): R60.0 - Localized edema (7) Chronic venous insufficiency Status: Chronic Current Visit: Yes Code(s): I87.2 - Venous insufficiency ( chronic) (peripheral) (8) Lymphedema of right lower extremity Status: Chronic Current Visit: Yes Code(s): I89.0 - Lymphedema, not elsewhere classified (9) Delayed wound healing Status: Chronic Current Visit: Yes Code(s): T14.8 - Other injury of unspecified body region (10) Chronic ulcer of right leg with fat layer exposed Status: Chronic Current Visit: Yes Code(s): L97.912 - 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chronic ulcer of unspecified part of right lower leg with fat layer exposed (11) Diabetes mellitus with polyneuropathy Status: Chronic Current Visit: No Qualifiers: Diabetes mellitus type: type 2 Qualified Code(s): E11.42 - Type 2 diabetes mellitus with diabetic polyneuropathy Code(s): E11.42 - Type 2 diabetes mellitus with diabetic polyneuropathy Type of Wound Date of Service: 02/19/18 Chief Complaint: Bilateral lower extremity swelling, edema, and lymphedema; chronic venous insufficiency; bilateral calf ulcerations. History of Wound: This is a 72-year-old female with a long-standing history of chronic swelling, edema, and lymphedema in her lower extremities. She has had ulcerations in her lower extremities bilaterally for more than 1 year. She sleeps in a recliner, with her legs in a dependent position. She suffers from Parkinson's disease, and has difficulties maneuvering herself into and out of a regular bed. She is not very active, and spends long hours each day in an idle sitting position. As result of her inactivity, she is not recruiting the calf and foot muscle pumps to aid venous return. Her last lower extremity arterial study was approximately 2 years ago, though was relatively normal. She has been under the care of Dr. Kolby Kunz, vascular surgeon, and has undergone staged, bilateral lower extremity venous ablation procedures. The specific nature of the procedures, and the success of the procedures, is not known. Despite these procedures, the patient has demonstrated no significant improvement. She continues to have massive swelling, edema, and lymphedema, and chronic, nonhealing ulcerations in the calves bilaterally. She denies a history of thrombophlebitis in the past. Recent cultures of her lower extremity ulcers were positive for Proteus mirabilis and Pseudomonas species. The patient was placed on Cipro and Augmentin orally. She recently completed this course 2 days ago and has an appointment with Dr. Rodrigez this morning with infectious disease specialist. She is currently using Dry Max and Jimy wraps to her lower extremities. She owns CircAid Velcro compression garments, but is not using. She also has pneumatic mechanical compression pumps, which she claims to be using once daily, though her compliance is in question. The ulcerations on her lower extremities are said to be highly exudative. She is not able to take Lasix as recommended due to urination frequency urinary incontinence. Progress of Wound: Improving - Physical Exam Vital Signs Temp Pulse Resp BP 98.7 F 66 16 134/80 H 02/19/18 09:31 02/10/18 15:35 02/19/18 09:31 02/10/18 15:35 General: Alert, Oriented x3, Cooperative Extremities: No cyanosis, Capillary Refill Less than 3 Seconds, No Calf Tenderness - Negative Cassie and Benitez sign bilateral, Diminished Peripheral Pulses, Edema Skin: Ulcer/ Wound - No purulence, no erythema, streaking, no odor bilateral. The cellulitis and infection signs to be resolved today. There is no longer any devitalized liquefied or necrotic or eschar tissue to the right limb. The inflammation is decreased however bilateral lower extremities remain very inflamed with edema and the wounds are all very painful to touch and debrided bilateral., - - The peripheral skin is atrophic bilateral Wound Measurements and Assessment WC - Nurse 1 - General Ulcer Measurement Start: 02/10/18 15:28 Freq: Status: Active Protocol: Activity Type Activity Date Activity User E-Sign Co-Sign Detail Recorded Client Recorded Date Recorded By Document 02/19/18 09:31 [facility] [id number] 02/19/18 09:43 [facility] 02/19/18 09:31 Wound Center Nurse 1 [Ulcer Assessment] #8 [id number] CALF cluster -Combined with other wound No -Current Size (cm) - Length 11 -Current Size (cm) - Width 13.5 -Current Size (cm) - Depth 0.2 -Total Square Cm 148.5 -Photo Taken No -Epithelialization Small 1-33% -Tunneling No -Undermining/Tunneling No -Circular Undermining No -Exudate Amt Large (67-100%) -Exudate Type Serosanguineous -Wound Margin Distinct, Outline Attached -Granulation Amt Small (1-33%) -Granulation Quality Red -Slough/Fibrin Yes -Necrosis Amt Large (67-100%) -Necrotic Tissue Type Adherent Slough -Texture (Vickie-wound Skin Appearance) Excoriation Scarring -Moisture (Vickie-wound Skin Appearance Weeping ) -Color (Vickie-wound Skin Appearance) Assessed Erythema Hemosiderin Staining -Temperature (Vickie-wound Skin No Abnormality Appearance) (Pt Warm) -Tenderness on Palpation (Vickie-wound Yes Skin Appearance) -Ulcer Cleansing Wound Cleanser -Foul Odor after Cleansing No -Anesthetic Used 4% Lidocaine Solution #4 L Lat LE cluster -Combined with other wound No -Current Size (cm) - Length 6.3 -Current Size (cm) - Width 10 -Current Size (cm) - Depth 0.2 -Total Square Cm 63.0 -Photo Taken No -Tunneling No -Undermining/Tunneling No -Circular Undermining No -Exudate Amt Large (67-100%) -Exudate Type Serosanguineous -Wound Margin Distinct, Outline Attached -Granulation Amt Small (1-33%) -Granulation Quality Red -Slough/Fibrin Yes -Necrosis Amt Large (67-100%) -Necrotic Tissue Type Adherent Slough -Texture (Vickie-wound Skin Appearance) Excoriation Scarring -Moisture (Vickie-wound Skin Appearance Weeping ) -Color (Vickie-wound Skin Appearance) Erythema Hemosiderin Staining -Temperature (Vickie-wound Skin No Abnormality Appearance) (Pt Warm) -Tenderness on Palpation (Vickie-wound Yes Skin Appearance) -Ulcer Cleansing Wound Cleanser -Foul Odor after Cleansing No -Anesthetic Used 4% Lidocaine Solution [Edema Assessment] -Lower Limb Edema Present Yes -Right Calf (cm) 60.5 -Right Ankle (cm) 25.1 -Left Calf (cm) 55.6 -Left Ankle (cm) 25.7 WC - Nurse 2 - General Ulcer CM Notes Start: 02/10/18 15:28 Freq: Status: Active Protocol: Activity Type Activity Date Activity User E-Sign Co-Sign Detail Recorded Client Recorded Date Recorded By Document 02/19/18 09:57 PARVIZ [id number] 02/19/18 10:00 PARVIZ 02/19/18 09:57 Wound Center Nurse 2 [Procedure/Treatment] #8 [id number] CALF cluster -Time 09:57 -Correct Patient Yes -Correct Side, Site, Position Yes -Correct Procedure Yes -Procedure Performed Yes -Type of Procedure Debridement -Clinical Debridement Subcutaneous -Post Debridement Size (cm) - Length 11.1 -Post Debridement Size (cm) - Width 13.6 -Post Debridement Size (cm) - Depth 0.2 -Total Square Cm 150.96 -Wound/Ulcer Outcome Not Healed -Ulcer Cleansing Rinsed/ Irrigated with Saline -Foul Odor after Cleansing No -Bioengineered Tissue No -Bleeding Controlled with Pressure -Other 60% debrided -Treatment Response Procedure Not Tolerated Well #4 L Lat LE cluster -Time 09:58 -Correct Patient Yes -Correct Side, Site, Position Yes -Correct Procedure Yes -Procedure Performed Yes -Type of Procedure Debridement -Clinical Debridement Subcutaneous -Post Debridement Size (cm) - Length 6.4 -Post Debridement Size (cm) - Width 10.1 -Post Debridement Size (cm) - Depth 0.2 -Total Square Cm 64.64 -Wound/Ulcer Outcome Not Healed -Ulcer Cleansing Rinsed/ Irrigated with Saline -Foul Odor after Cleansing No -Bioengineered Tissue No -Bleeding Controlled with Pressure -Other 60% debrided. -Treatment Response Procedure Tolerated Well [See Physician Procedure note for Specifics] Pain Scale: 0-10 Numeric [Pain] -Is Patient Pain Free? Yes Musculoskeletal: No Tenderness to Palpation of Joints or Extremities, Muscle Wasting, - - Compartments bilateral lower extremities soft Neurological: Sensory exam intact to light touch and pain, - Psych/Mental Status: Normal Affect, Appropriate Debridement Note Post-Debridement Measurements/Treatment WC - Nurse 2 - General Ulcer CM Notes Start: 02/10/18 15:28 Freq: Status: Active Protocol: Activity Type Activity Date Activity User E-Sign Co-Sign Detail Recorded Client Recorded Date Recorded By Document 02/10/18 16:57 JS [id number] 02/10/18 17:04 JS Document 02/19/18 09:57 JF [id number] 02/19/18 10:00 JF 02/10/18 02/19/18 16:57 09:57 Wound Center Nurse 2 #8 [id number] CALF cluster -Time 16:57 09:57 -Correct Patient Yes Yes -Correct Side, Site, Position Yes Yes -Correct Procedure Yes Yes -Procedure Performed No Yes -Type of Procedure Debridement -Clinical Debridement Subcutaneous -Post Debridement Size (cm) - Length 11.1 -Post Debridement Size (cm) - Width 13.6 -Post Debridement Size (cm) - Depth 0.2 -Total Square Cm 150.96 -Wound/Ulcer Outcome Not Healed Not Healed -Ulcer Cleansing Not Cleansed Rinsed/ Irrigated with Saline -Foul Odor after Cleansing No No -Bioengineered Tissue No No -Topical Lidocaine (%) 4 -Lidocaine (ml) 15 -Bleeding Controlled with NA Pressure -Other 60% debrided -Treatment Response Procedure Not Tolerated Well #4 L Lat LE cluster -Time 16:58 09:58 -Correct Patient Yes Yes -Correct Side, Site, Position Yes Yes -Correct Procedure Yes Yes -Procedure Performed No Yes -Type of Procedure Debridement -Clinical Debridement Subcutaneous -Post Debridement Size (cm) - Length 6.4 -Post Debridement Size (cm) - Width 10.1 -Post Debridement Size (cm) - Depth 0.2 -Total Square Cm 64.64 -Wound/Ulcer Outcome Not Healed Not Healed -Ulcer Cleansing Not Cleansed Rinsed/ Irrigated with Saline -Foul Odor after Cleansing No No -Bioengineered Tissue No No -Lidocaine (ml) 15 -Bleeding Controlled with NA Pressure -Other 60% debrided. -Treatment Response Procedure Tolerated Well Pain Scale: 0-10 Numeric Is Patient Pain Free? Yes Wound debrided: leg Wound Grade/Stage: stanley grade 1 Type of Debridement: Excisional debridement Anesthesia Used: 5% Lidocaine Gel Depth: in the subcutaneous layer Percentage of wound debrided: 60 Instrument Used: 7mm curette Tissue Removed: fibrous, devitalized subcutaneous, biofilm, slough Severity: Fat Layer Exposed Amount of bleeding with debridement: Mild Bleeding Controlled with: Pressure Patient tolerated procedure well - Additional Wound Wound debrided: leg Laterality: Left Wound Grade/Stage: stanley grade 1 Type of Debridement: Excisional debridement Anesthesia Used: 5% Lidocaine Gel Depth: in the subcutaneous layer Percentage of wound debrided: 60 Instrument Used: 7mm curette Tissue Removed: fibrous, devitalized subcutaneous, biofilm, slough Severity: Fat Layer Exposed Amount of bleeding with debridement: Mild Bleeding Controlled with: Pressure Patient tolerated procedure: Patient tolerated procedure well Assessment/Plan Active Problems Ulcer of left lower extremity with fat layer exposed (Chronic) Right leg pain (Chronic) Left leg pain (Chronic) Swelling of left lower extremity (Chronic) Swelling of right lower extremity (Chronic) Edema, leg (Chronic) Chronic venous insufficiency (Chronic) Dependent edema (Chronic) Venous ulcer of left leg (Chronic) Venous ulcer of right leg (Chronic) Lymphedema of left leg (Chronic) Lymphedema of right lower extremity (Chronic) Obesity (BMI 30-39.9) (Chronic) Parkinsons disease (Chronic) Immobility (Chronic) Cellulitis of leg, right (Chronic) Delayed wound healing (Chronic) Ulcer of left lower extremity with fat layer exposed (Chronic) Chronic ulcer of right leg with fat layer exposed (Chronic) Assessment: This is a 72-year-old female with Parkinson's disease. She suffers from severe swelling, edema, and lymphedema in her lower extremities, associated with ulcerations bilaterally. The patient is relatively immobile. She sleeps in a recliner, with her legs in a dependent position. She sits idlely for long periods each day. Recent cultures have been positive for Proteus and Pseudomonas, the patient is now on oral Cipro and Augmentin. The patient has been using Dry Max and Jimy wraps to her lower extremities. She has previously undergone bilateral venous ablation procedures, though the nature of the procedures and their success is unknown. It is felt that the patient would benefit from lifestyle modification. Enhanced efforts at elevation of the patient's lower extremities is recommended. The patient has been advised to sleep with her legs level with her heart, if not higher. Leg elevation has been recommended even during daytime hours. She has been advised to refrain from prolonged idle sitting. Activity has been encouraged, the patient is somewhat limited due to her Parkinson's disease. It is likely that the patient would benefit from enhanced compression to the lower extremities. A noninvasive lower extremity arterial study will be obtained to assess the patient's arterial status, which will determine whether enhanced degrees of compression can be implemented. This has not been completed yet. The patient has been advised to implement the use of her pneumatic compression pumps at least 2 or 3 times daily. She has been advised to continue her current antibiotic regimen. Optimization of the patient's nutrition has been recommended as well. Plan: I reviewed her case and ongoing treatment plan. Debridement was performed as noted above and in the clinical panel (subcutaneous). 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 It is noted her body habitus is limiting the results. To continue diuresis plan with her primary care physician; she has not been able to start this yet due to ongoing inabilty to get to the rest room multiple times per day. A referral was provided to Dr. Kunz and she completed the planned intervention; to continue as advised. She already had her intervention completed and had scheduled follow-up. Today, a multilayer later compression dressing was applied to the lower extremities. She is advised to use CircAid compression in addition at home. A referral to the lymphedema clinic was also provided and potential intervention such as lymphatic massage, other compression pumps and garments were discussed. A compression pump has been received and she was advised to continue this twice daily. To continue absorption dressings. This will be changed by home health a couple times a week and was applied today. She may also want to consider senior care facility placement if she is not able to have the appropriate support at home with home health and family help. She is doing well with this so far and demonstrates less periwound moisture and inflammation. We discussed in depth the importance of edema control. To keep legs elevated above heart while resting. To avoid lying directly on the wound while seated or in bed. To avoid idle standing or sitting for prolonged time. To monitor for signs of infection. This is not noted today. To continue take ibuprofen only as needed with caution. She was advised on safe and proper use. Updated culture tissue specimen was reviewed and it is noted she completed an oral course of Augmentin and Cipro. Clinically her infection status is greatly improved and she did he will see infectious disease today which is greatly appreciated. Additional intervention at this time is not recommended. Updated labs were also ordered including cbc, cmp, screeing hemoglobin A1C, crp and sedimentation rate. These are previously reviewed with her via phone. It is noted her hemoglobin A1c is elevated I recommend she follows up with Dr. Horvath her primary care physician to see if diabetes management initiation is appropriate. She was advised to reschedule her noninvasive vascular studies. She last had this completed about 2 years ago and there were normal. RTC ( wound center) in 1 week with wound center or call sooner if she has questions or concerns.
--- NOTE | 2018-02-19 12:40 | PCM.HP.ID ---
Problem List (1) Chronic venous insufficiency Status: Chronic Reason for Consult: leg infection Consulted by: Dr. Wiggins History of Present Illness: The patient is a 72 year old F with chronic lymphedema and bilateral leg ulceration for about the past year who follows at wound clinic. Seen about 2 weeks ago with significant pain, redness, swelling, and foul odor/drainage from RLE ulcer. No fever or chills with this. Cx with pseudomonas, proteus, and anaerobes. Given rx for cipro and augmentin for 10 day course. Now leg is much better with minimal pain. Additional history obtained from her daughter. Full ROS performed and neg except as noted above - Medical History Past Medical History (Chronic Problems): Chronic Problems Ulcer of left lower extremity with fat layer exposed (Chronic) Right leg pain (Chronic) Left leg pain (Chronic) Swelling of left lower extremity (Chronic) Swelling of right lower extremity (Chronic) Edema, leg (Chronic) Chronic venous insufficiency (Chronic) Dependent edema (Chronic) Venous ulcer of left leg (Chronic) Venous ulcer of right leg (Chronic) Lymphedema of left leg (Chronic) Lymphedema of right lower extremity (Chronic) Obesity (BMI 30-39.9) (Chronic) Parkinsons disease (Chronic) Immobility (Chronic) Urinary incontinence (Chronic) Cellulitis of leg, right (Chronic) Tinea unguium (Chronic) Delayed wound healing (Chronic) Tibialis posterior dysfunction (Chronic) Walking difficulty due to ankle and foot (Chronic) Pain, foot, left, chronic (Chronic) Left tibialis posterior tendonitis (Chronic) Ulcer of left lower extremity with fat layer exposed (Chronic) Left ankle pain (Chronic) Left tibialis tendonitis (Chronic) Chronic ulcer of right leg with fat layer exposed (Chronic) Lymphedema of lower extremity (Chronic) Venous insufficiency (chronic) (peripheral) (Chronic) Diabetes mellitus with polyneuropathy (Chronic) 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ulcer of right lower extremity with fat layer exposed (Chronic) Ulcer of right leg (Chronic) Malnutrition (Chronic) Edema leg (Chronic) Allergies/Adverse Reactions: Allergies No Known Allergies Allergy (Verified 03/11/14 15:07) Home Medications: Ambulatory Orders Medication Instructions Recorded Carbidopa/Levodopa 2 mg PO TID 04/04/16 [Carbidopa-Levodopa 25-100 Tab] Diphenoxylate/Atrop [Lomotil] 1 tablet PO BID PRN PRN 04/04/16 Ropinirole HCl [Requip Xl] 8 mg PO DAILY 04/04/16 - Social History Tobacco Use: non-smoker Vital Signs Temp Pulse Resp BP 98.7 F 66 16 134/80 H 02/19/18 09:31 02/10/18 15:35 02/19/18 09:31 02/10/18 15:35 Oxygen Delivery Method Room Air - Other Studies Radiology: [] reviewed Other Studies: [] Route of nutrition/ use of supplements: [] Nutritional Intake: [] IV Site: [] Grande Catheter: [] - Physical Exam General: Alert, Cooperative, No apparent distress HEENT: Atraumatic, PERRLA, EOMI Neck: Supple, No Nodes Lungs: Clear to auscultation, Normal air movement Cardiovascular: Regular rate, Regular Rhythm, Murmur Abdomen: Soft, Non Tender, Non-Distended, Obese Extremities: Edema Skin: Ulcer/ Wound - Bilat williamson ulcers Musculoskeletal: No Tenderness to Palpation of Joints or Extremities Neurological: Cranial nerves II-XII grossly intact - Assessment/Plan Antibiotics: [] Assessment/Plan: [] RLE infected ulcer with chronic lymphedema - much improved after course of augmentin and cipro. Ok to monitor at this point off of abx. Thank you, will follow as needed, d/w Dr. Interiano.
--- NOTE | 2018-02-22 19:18 | LEAS ---
Arterial Study - Arterial Study Arterial Study: This is a 72-year-old female with Parkinson's disease. She presents with bilateral lower extremity chronic wounds. Suspecting the presence of atherosclerotic peripheral arterial occlusive disease, the patient was brought to the noninvasive vascular laboratory at this time for the purpose of bilateral noninvasive lower extremity arterial assessment. Doppler signal assessment was used to evaluate the pulses at ankle level bilaterally. The posterior tibial and dorsalis pedis pulses were triphasic bilaterally. Segmental limb pressures were obtained bilaterally. The right calf pressure could not be obtained due to the noncompressibility of the vasculature. The right ankle pressure, as determined by posterior tibial and dorsalis pedis pulses, could not be determined due to the noncompressibility of the vasculature. The right digital pressure was measured at 97 mmHg. The left calf pressure was measured at 149 mmHg. The left ankle pressure, as determined by posterior tibial and dorsalis pedis pulses, could not be determined due to the noncompressibility of the vasculature. The left digital pressure was measured at 96 mmHg. Pulse-volume recordings were obtained at calf and digital levels bilaterally. Waveform amplitudes appeared to be satisfactory bilaterally. Resting ankle-brachial indices could not be calculated on either side due to the noncompressibility of the vasculature. Digital-brachial indices were calculated bilaterally. The right digital-brachial index was calculated to be 0.82. The left digital-brachial index was calculated to be 0.81. Impression: Based upon the findings of this resting noninvasive lower extremity arterial study, there is no evidence of significant arterial occlusive disease in the lower extremities bilaterally. Triphasic waveforms were noted at ankle level bilaterally. Resting ankle-brachial indices could not be calculated on either side due to the noncompressibility of the vasculature, likely due to arterial calcification rendering the arterial tree noncompressible. Digital-brachial indices are bilaterally normal, suggesting relatively normal arterial perfusion at digital level bilaterally. Clinical correlation is advised.
--- NOTE | 2018-02-22 19:29 | LEAS_ITS ---
Arterial Study - Arterial Study Arterial Study: This is a 72-year-old female with Parkinson's disease. She presents with bilateral lower extremity chronic wounds. Suspecting the presence of atherosclerotic peripheral arterial occlusive disease, the patient was brought to the noninvasive vascular laboratory at this time for the purpose of bilateral noninvasive lower extremity arterial assessment. Doppler signal assessment was used to evaluate the pulses at ankle level bilaterally. The posterior tibial and dorsalis pedis pulses were triphasic bilaterally. Segmental limb pressures were obtained bilaterally. The right calf pressure could not be obtained due to the noncompressibility of the vasculature. The right ankle pressure, as determined by posterior tibial and dorsalis pedis pulses, could not be determined due to the noncompressibility of the vasculature. The right digital pressure was measured at 97 mmHg. The left calf pressure was measured at 149 mmHg. The left ankle pressure, as determined by posterior tibial and dorsalis pedis pulses, could not be determined due to the noncompressibility of the vasculature. The left digital pressure was measured at 96 mmHg. Pulse-volume recordings were obtained at calf and digital levels bilaterally. Waveform amplitudes appeared to be satisfactory bilaterally. Resting ankle-brachial indices could not be calculated on either side due to the noncompressibility of the vasculature. Digital-brachial indices were calculated bilaterally. The right digital- brachial index was calculated to be 0.82. The left digital-brachial index was calculated to be 0.81. Impression: Based upon the findings of this resting noninvasive lower extremity arterial study, there is no evidence of significant arterial occlusive disease in the lower extremities bilaterally. Triphasic waveforms were noted at ankle level bilaterally. Resting ankle-brachial indices could not be calculated on either side due to the noncompressibility of the vasculature, likely due to arterial calcification rendering the arterial tree noncompressible. Digital- brachial indices are bilaterally normal, suggesting relatively normal arterial perfusion at digital level bilaterally. Clinical correlation is advised.
[2018-02-26 13:05] VITALS: BP 140/71; PULSE 80; RESP 18; TEMP 36.6
--- NOTE | 2018-02-26 17:08 | PN.PCM_ITS ---
(1) Ulcer of left lower extremity with fat layer exposed Status: Chronic Code(s): L97.922 - 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chronic ulcer of unspecified part of left lower leg with fat layer exposed (2) Ulcer of left lower extremity with fat layer exposed Status: Chronic Code(s): L97.922 - 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chronic ulcer of unspecified part of left lower leg with fat layer exposed (3) Cellulitis of leg, right Status: Resolved Code(s): L03.115 - Cellulitis of right lower limb (4) Left leg pain Status: Chronic Code(s): M79.605 - Pain in left leg (5) Edema, leg Status: Chronic Code(s): R60.0 - Localized edema (6) Chronic venous insufficiency Status: Chronic Code(s): I87.2 - Venous insufficiency (chronic) (peripheral) (7) Lymphedema of right lower extremity Status: Chronic Code(s): I89.0 - Lymphedema, not elsewhere classified (8) Delayed wound healing Status: Chronic Code(s): T14.8 - Other injury of unspecified body region (9) Chronic ulcer of right leg with fat layer exposed Status: Chronic Code(s): L97.912 - 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chronic ulcer of unspecified part of right lower leg with fat layer exposed (10) Diabetes mellitus with polyneuropathy Status: Chronic Qualifiers: Diabetes mellitus type: type 2 Qualified Code(s): E11.42 - Type 2 diabetes mellitus with diabetic polyneuropathy Code(s): E11.42 - Type 2 diabetes mellitus with diabetic polyneuropathy (11) Tinea unguium Status: Chronic Code(s): B35.1 - Tinea unguium (12) Type 2 diabetes mellitus with diabetic polyneuropathy Status: Chronic Code(s): E11.42 - Type 2 diabetes mellitus with diabetic polyneuropathy Type of Wound Date of Service: 03/02/18 Chief Complaint: Bilateral lower extremity swelling, edema, and lymphedema; chronic venous insufficiency; bilateral calf ulcerations. History of Wound: This is a 72-year-old female with a long-standing history of chronic swelling, edema, and lymphedema in her lower extremities. She has had ulcerations in her lower extremities bilaterally for more than 1 year. She sleeps in a recliner, with her legs in a dependent position. She suffers from Parkinson's disease, and has difficulties maneuvering herself into and out of a regular bed. She is not very active, and spends long hours each day in an idle sitting position. As result of her inactivity, she is not recruiting the calf and foot muscle pumps to aid venous return. Her last lower extremity arterial study was approximately 2 years ago, though was relatively normal. She had this study repeated last week. She has been under the care of Dr. Kolby Kunz, vascular surgeon, and has undergone staged, bilateral lower extremity venous ablation procedures. She is currently using Dry Max and Jimy wraps to her lower extremities. She owns CircAid Velcro compression garments, but is not using. She also has pneumatic mechanical compression pumps, which she claims to be using once daily, though her compliance is in question. The ulcerations on her lower extremities are said to be highly exudative. She is not able to take Lasix as recommended due to urination frequency urinary incontinence. Progress of Wound: Stable - Physical Exam Vital Signs Temp Pulse Resp BP 97.8 F 80 18 140/71 H 02/26/18 13:05 02/26/18 13:05 02/26/18 13:05 02/26/18 13:05 General: Alert, Oriented x3, Cooperative Extremities: No cyanosis, Capillary Refill Less than 3 Seconds, No Calf Tenderness - Negative Cassie and Benitez bilateral, Diminished Peripheral Pulses, Edema - Bilateral lower extremities consistent with lymphedema; highly exudative wounds associated Skin: Ulcer/ Wound - All erythema and necrotic tissue has resolved. There is no streaking, odor, or erythema noted today. There is no exposed deep fascia or muscle tissue bilateral. The wound beds are granular with continued fibrous tissue noted. The peripheral skin is atrophic hairless and indurated bilateral Wound Measurements and Assessment WC - Nurse 1 - General Ulcer Measurement Start: 02/10/18 15:28 Freq: Status: Active Protocol: Activity Type Activity Date Activity User E-Sign Co-Sign Detail Recorded Client Recorded Date Recorded By Document 02/26/18 13:05 [id number] 02/26/18 13:20 [facility] 02/26/18 13:05 Wound Center Nurse 1 [Ulcer Assessment] #8 [id number] CALF cluster -Combined with other wound No -Current Size (cm) - Length 10.5 -Current Size (cm) - Width 21.5 -Current Size (cm) - Depth 0.2 -Total Square Cm 225.75 -Photo Taken No -Epithelialization None Present -Tunneling No -Undermining/Tunneling No -Circular Undermining No -Exudate Amt Large (67-100%) -Exudate Type Serosanguineous -Wound Margin Distinct, Outline Attached -Granulation Amt Small (1-33%) -Granulation Quality Red -Slough/Fibrin Yes -Necrosis Amt Large (67-100%) -Necrotic Tissue Type Adherent Slough -Texture (Vickie-wound Skin Appearance) Scarring -Moisture (Vickie-wound Skin Appearance Maceration ) Weeping -Color (Vickie-wound Skin Appearance) Erythema Hemosiderin Staining Palor -Temperature (Vickie-wound Skin No Abnormality Appearance) (Pt Warm) -Tenderness on Palpation (Vickie-wound Yes Skin Appearance) -Ulcer Cleansing Wound Cleanser -Foul Odor after Cleansing No -Anesthetic Used 4% Lidocaine Solution #4 L Lat LE cluster -Combined with other wound No -Current Size (cm) - Length 6.7 -Current Size (cm) - Width 14.4 -Current Size (cm) - Depth 0.2 -Total Square Cm 96.48 -Photo Taken No -Epithelialization None Present -Tunneling No -Undermining/Tunneling No -Circular Undermining No -Exudate Amt Large (67-100%) -Exudate Type Serosanguineous -Wound Margin Distinct, Outline Attached -Granulation Amt Small (1-33%) -Granulation Quality Red -Slough/Fibrin Yes -Necrosis Amt Large (67-100%) -Necrotic Tissue Type Adherent Slough -Texture (Vickie-wound Skin Appearance) Scarring -Moisture (Vickie-wound Skin Appearance Maceration ) Weeping -Color (Vickie-wound Skin Appearance) Erythema Palor -Temperature (Vickie-wound Skin No Abnormality Appearance) (Pt Warm) -Tenderness on Palpation (Vickie-wound Yes Skin Appearance) -Ulcer Cleansing Wound Cleanser -Foul Odor after Cleansing No -Anesthetic Used 4% Lidocaine Solution [Edema Assessment] -Lower Limb Edema Present Yes -Right Calf (cm) 55.9 -Right Ankle (cm) 25.5 -Left Calf (cm) 54.5 -Left Ankle (cm) 25.6 WC - Nurse 2 - General Ulcer CM Notes Start: 02/10/18 15:28 Freq: Status: Active Protocol: Activity Type Activity Date Activity User E-Sign Co-Sign Detail Recorded Client Recorded Date Recorded By Document 02/26/18 13:47 [id number] 02/26/18 13:56 02/26/18 13:47 Wound Center Nurse 2 [Procedure/Treatment] #8 [id number] CALF cluster -Time 13:55 -Correct Patient Yes -Correct Side, Site, Position Yes -Correct Procedure Yes -Procedure Performed Yes -Type of Procedure Debridement -Clinical Debridement Subcutaneous -Post Debridement Size (cm) - Length 10.6 -Post Debridement Size (cm) - Width 21.5 -Post Debridement Size (cm) - Depth 0.2 -Total Square Cm 227.90 -Wound/Ulcer Outcome Not Healed -Ulcer Cleansing Rinsed/ Irrigated with Saline -Foul Odor after Cleansing No -Bioengineered Tissue No -Topical Lidocaine (%) 4 -Bleeding Controlled with Pressure -Treatment Response Procedure Tolerated Well #4 L Lat LE cluster -Time 13:56 -Correct Patient Yes -Correct Side, Site, Position Yes -Correct Procedure Yes -Procedure Performed Yes -Type of Procedure Debridement -Clinical Debridement Subcutaneous -Post Debridement Size (cm) - Length 6.8 -Post Debridement Size (cm) - Width 14.5 -Post Debridement Size (cm) - Depth 0.2 -Total Square Cm 98.60 -Wound/Ulcer Outcome Not Healed -Ulcer Cleansing Rinsed/ Irrigated with Saline -Foul Odor after Cleansing No -Bioengineered Tissue No -Topical Lidocaine (%) 4 -Bleeding Controlled with Pressure -Treatment Response Procedure Tolerated Well [See Physician Procedure note for Specifics] Pain Scale: 0-10 Numeric [Pain] -Is Patient Pain Free? Yes Musculoskeletal: No Tenderness to Palpation of Joints or Extremities, Muscle Wasting, Tenderness - Wound manipulation pain continued bilateral, - - Lower extremity compartments remain soft bilateral Neurological: Sensory exam intact to light touch and pain Psych/Mental Status: Normal Affect, Appropriate Debridement Note Post-Debridement Measurements/Treatment WC - Nurse 2 - General Ulcer CM Notes Start: 02/10/18 15:28 Freq: Status: Active Protocol: Activity Type Activity Date Activity User E-Sign Co-Sign Detail Recorded Client Recorded Date Recorded By Document 02/10/18 16:57 JS [id number] 02/10/18 17:04 JS Document 02/19/18 09:57 [id number] 02/19/18 10:00 Document 02/26/18 13:47 [id number] 02/26/18 13:56 02/10/18 02/19/18 02/26/18 16:57 09:57 13:47 Wound Center Nurse 2 #8 [id number] CALF cluster -Time 16:57 09:57 13:55 -Correct Patient Yes Yes Yes -Correct Side, Site, Position Yes Yes Yes -Correct Procedure Yes Yes Yes -Procedure Performed No Yes Yes -Type of Procedure Debridement Debridement -Clinical Debridement Subcutaneous Subcutaneous -Post Debridement Size (cm) - Length 11.1 10.6 -Post Debridement Size (cm) - Width 13.6 21.5 -Post Debridement Size (cm) - Depth 0.2 0.2 -Total Square Cm 150.96 227.90 -Wound/Ulcer Outcome Not Healed Not Healed Not Healed -Ulcer Cleansing Not Cleansed Rinsed/ Rinsed/ Irrigated with Irrigated with Saline Saline -Foul Odor after Cleansing No No No -Bioengineered Tissue No No No -Topical Lidocaine (%) 4 4 -Lidocaine (ml) 15 -Bleeding Controlled with NA Pressure Pressure -Other 60% debrided -Treatment Response Procedure Not Procedure Tolerated Well Tolerated Well #4 L Lat LE cluster -Time 16:58 09:58 13:56 -Correct Patient Yes Yes Yes -Correct Side, Site, Position Yes Yes Yes -Correct Procedure Yes Yes Yes -Procedure Performed No Yes Yes -Type of Procedure Debridement Debridement -Clinical Debridement Subcutaneous Subcutaneous -Post Debridement Size (cm) - Length 6.4 6.8 -Post Debridement Size (cm) - Width 10.1 14.5 -Post Debridement Size (cm) - Depth 0.2 0.2 -Total Square Cm 64.64 98.60 -Wound/Ulcer Outcome Not Healed Not Healed Not Healed -Ulcer Cleansing Not Cleansed Rinsed/ Rinsed/ Irrigated with Irrigated with Saline Saline -Foul Odor after Cleansing No No No -Bioengineered Tissue No No No -Topical Lidocaine (%) 4 -Lidocaine (ml) 15 -Bleeding Controlled with NA Pressure Pressure -Other 60% debrided. -Treatment Response Procedure Procedure Tolerated Well Tolerated Well Pain Scale: 0-10 Numeric Is Patient Pain Free? Yes Yes Wound debrided: leg Laterality: Right Wound Grade/Stage: grade 1 Type of Debridement: Excisional debridement Anesthesia Used: 5% Lidocaine Gel Depth: in the subcutaneous layer Percentage of wound debrided: 60 Instrument Used: #15 blade Tissue Removed: fibrous, devitalized subcutaneous, biofilm, slough Severity: Fat Layer Exposed Amount of bleeding with debridement: Mild Bleeding Controlled with: Pressure Patient tolerated procedure well - Additional Wound Wound debrided: leg Laterality: Left Wound Grade/Stage: grade 1 Type of Debridement: Excisional debridement Anesthesia Used: 5% Lidocaine Gel Depth: in the subcutaneous layer Percentage of wound debrided: 60 Instrument Used: #15 blade Tissue Removed: fibrous, devitalized subcutaneous, biofilm, slough Severity: Fat Layer Exposed Amount of bleeding with debridement: Mild Bleeding Controlled with: Pressure Patient tolerated procedure: Patient tolerated procedure well Assessment/Plan Assessment: This is a 72-year-old female with Parkinson's disease. She suffers from severe swelling, edema, and lymphedema in her lower extremities, associated with ulcerations bilaterally. She also recently had an elevated hemoglobin A1c level consistent with diabetic status. The patient is relatively immobile. She sleeps in a recliner, with her legs in a dependent position. She sits idlely for long periods each day. Recent cultures have been positive for Proteus and Pseudomonas, the patient has completed a course of oral Cipro and Augmentin with local resolution of infection. She was also seen by infectious disease a couple weeks ago and is now established. The patient has been using Dry Max and Jimy wraps to her lower extremities. She has previously undergone bilateral venous ablation procedures. It is felt that the patient would benefit from lifestyle modification. Enhanced efforts at elevation of the patient's lower extremities is recommended. The patient has been advised to sleep with her legs level with her heart, if not higher. Leg elevation has been recommended even during daytime hours. She has been advised to refrain from prolonged idle sitting. Activity has been encouraged, the patient is somewhat limited due to her Parkinson's disease. It is likely that the patient would benefit from enhanced compression to the lower extremities. A noninvasive lower extremity arterial study was obtained to assess the patient' s arterial status, which will determine whether enhanced degrees of compression can be implemented. This was completed. The patient has been advised to implement the use of her pneumatic compression pumps at least 2 or 3 times daily. She has been advised to continue her current antibiotic regimen. Optimization of the patient's nutrition has been recommended as well. Plan: I reviewed her case and ongoing treatment plan. Debridement was performed as noted above and in the clinical panel (subcutaneous). 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 It is noted her body habitus is limiting the results. To continue diuresis plan with her primary care physician; she has not been able to start this yet due to ongoing inabilty to get to the rest room multiple times per day. A referral was provided to Dr. Kunz and she completed the planned intervention; to continue as advised. Her noninvasive vascular studies demonstrate calcification making this nonconclusive. I recommend she also follows up with Dr. Kunz for this; she is apprehensive because she is overwhelmed with her medical status at this time. She already had her venous intervention completed and had scheduled follow-up. Today, a multilayer later compression dressing was applied to the lower extremities. She is advised to use CircAid compression in addition at home. A referral to the lymphedema clinic was also provided and potential intervention such as lymphatic massage, other compression pumps and garments were discussed. A compression pump has been received and she was advised to continue this twice daily. To continue absorption dressings. This will be changed by home health a couple times a week and was applied today. She may also want to consider [facility] [facility] facility [facility] if she is not able to have the appropriate support at home with home health and family help. She is doing well with this so far and demonstrates less periwound moisture and inflammation. We discussed in depth the importance of edema control. To keep legs elevated above heart while resting. To avoid lying directly on the wound while seated or in bed. To avoid idle standing or sitting for prolonged time. To monitor for signs of infection; she was reassured that this is not noted today. To continue take ibuprofen only as needed with caution. She was advised on safe and proper use. Updated culture tissue specimen was reviewed and it is noted she completed an oral course of Augmentin and Cipro. Clinically her infection status is greatly improved and she did he will see infectious disease today which is greatly appreciated. Additional intervention at this time is not recommended. It is noted her hemoglobin A1c is elevated I recommend she follows up with Dr. Horvath her primary care physician to see if diabetes management initiation is appropriate. To RTC (wound center) in 1 week with wound center or call sooner if she has questions or concerns. I answered all of her questions.
[2018-03-05 13:25] VITALS: BP 88/62; PULSE 80; RESP 16; TEMP 35.8
--- NOTE | 2018-03-05 14:41 | PCM.WC.PN ---
(1) Chronic ulcer of right leg with fat layer exposed Status: Chronic Current Visit: Yes Code(s): L97.912 - 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chronic ulcer of unspecified part of right lower leg with fat layer exposed (2) Ulcer of left lower extremity with fat layer exposed Status: Chronic Current Visit: Yes Code(s): L97.922 - 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chronic ulcer of unspecified part of left lower leg with fat layer exposed (3) Left leg pain Status: Resolved Current Visit: No Code(s): M79.605 - Pain in left leg (4) Edema, leg Status: Chronic Current Visit: No Code(s): R60.0 - Localized edema (5) Chronic venous insufficiency Status: Chronic Current Visit: No Code(s): I87.2 - Venous insufficiency (chronic) (peripheral) (6) Lymphedema of right lower extremity Status: Chronic Current Visit: No Code(s): I89.0 - Lymphedema, not elsewhere classified (7) Delayed wound healing Status: Chronic Current Visit: Yes Code(s): T14.8 - Other injury of unspecified body region (8) Diabetes mellitus with polyneuropathy Status: Chronic Current Visit: Yes Qualifiers: Diabetes mellitus type: type 2 Qualified Code(s): E11.42 - Type 2 diabetes mellitus with diabetic polyneuropathy Code(s): E11.42 - Type 2 diabetes mellitus with diabetic polyneuropathy Type of Wound Date of Service: 03/05/18 Chief Complaint: Bilateral lower extremity swelling, edema, and lymphedema; chronic venous insufficiency; bilateral calf ulcerations. History of Wound: This is a 72-year-old female with a long-standing history of chronic swelling, edema, and lymphedema in her lower extremities. She has had ulcerations in her lower extremities bilaterally for more than 1 year. She sleeps in a recliner, with her legs in a dependent position. She suffers from Parkinson's disease, and has difficulties maneuvering herself into and out of a regular bed. She is not very active, and spends long hours each day in an idle sitting position. As result of her inactivity, she is not recruiting the calf and foot muscle pumps to aid venous return. Her last lower extremity arterial study was approximately 2 years ago, though was relatively normal. She had this study repeated and recently. She has been under the care of Dr. Kolby Kunz, vascular surgeon, and has undergone staged, bilateral lower extremity venous ablation procedures. I recommend she return to Dr. Kunz for follow-up of her recent abnormal vascular studies demonstrate noncompressibility and calcification of the arteries to the lower extremities. She is amenable at this time and a referral will be sent. She is currently using Dry Max and Jimy wraps to her lower extremities. She owns CircAid Velcro compression garments, but is not using. She also has pneumatic mechanical compression pumps, which she claims to be using once daily, though her compliance is in question. The ulcerations on her lower extremities are said to be highly exudative. She is not able to take Lasix as recommended due to urination frequency urinary incontinence. Progress of Wound: Worse - Physical Exam Vital Signs Temp Pulse Resp BP 96.4 F L 80 16 88/62 L 03/05/18 13:25 03/05/18 13:25 03/05/18 13:25 03/05/18 13:25 General: Alert, Oriented x3, Cooperative Extremities: No cyanosis, Capillary Refill Less than 3 Seconds, No Calf Tenderness - Negative Cassie and Benitez bilateral, Diminished Peripheral Pulses, Edema Skin: Ulcer/ Wound - No purulence, no erythema, streaking, no odor, no infection bilateral lower extremities. The wound size has increased and there is increased circumferential sub-hemorrhagic tissue now in the lower extremity edema has clearly increased compared to last visit. Her skin is very friable, atrophic, and without hair. There is no exposed eschar or deep tissue noted. Wound Measurements and Assessment WC - Nurse 1 - General Ulcer Measurement Start: 02/10/18 15:28 Freq: Status: Active Protocol: Activity Type Activity Date Activity User E-Sign Co-Sign Detail Recorded Client Recorded Date Recorded By Document 03/05/18 13:25 JF [id number] 03/05/18 13:28 JF 03/05/18 13:25 Wound Center Nurse 1 [Ulcer Assessment] #8 [id number] CALF cluster -Combined with other wound No -Current Size (cm) - Length 11.5 -Current Size (cm) - Width 26.0 -Current Size (cm) - Depth 0.1 -Total Square Cm 299.00 -Photo Taken No -Epithelialization None Present -Tunneling No -Undermining/Tunneling No -Circular Undermining No -Exudate Amt Large (67-100%) -Exudate Type Serosanguineous -Wound Margin Flat & Intact -Granulation Amt None Present (0 %) -Slough/Fibrin Yes -Necrosis Amt Large (67-100%) -Necrotic Tissue Type Adherent Slough -Structure Exposed N/A -Texture (Vickie-wound Skin Appearance) Assessed Localized Edema -Moisture (Vickie-wound Skin Appearance Assessed ) Weeping -Color (Vickie-wound Skin Appearance) Assessed Hemosiderin Staining -Temperature (Vickie-wound Skin No Abnormality Appearance) (Pt Warm) -Tenderness on Palpation (Vickie-wound No Skin Appearance) -Ulcer Cleansing Wound Cleanser -Foul Odor after Cleansing No -Anesthetic Used 4% Lidocaine Solution #4 L Lat LE cluster -Combined with other wound No -Current Size (cm) - Length 9 -Current Size (cm) - Width 15 -Current Size (cm) - Depth 0.1 -Total Square Cm 135 -Photo Taken No -Epithelialization Small 1-33% -Tunneling No -Undermining/Tunneling No -Circular Undermining No -Exudate Amt Large (67-100%) -Exudate Type Serosanguineous -Wound Margin Flat & Intact -Granulation Amt Medium (34-66%) -Granulation Quality Sealy -Slough/Fibrin Yes -Necrosis Amt Small (1-33%) -Necrotic Tissue Type Adherent Slough -Structure Exposed N/A -Texture (Vickie-wound Skin Appearance) Assessed Localized Edema -Moisture (Vickie-wound Skin Appearance Assessed ) Weeping -Color (Vickie-wound Skin Appearance) Assessed Hemosiderin Staining -Temperature (Vickie-wound Skin No Abnormality Appearance) (Pt Warm) -Tenderness on Palpation (Vickie-wound No Skin Appearance) -Ulcer Cleansing Wound Cleanser -Foul Odor after Cleansing No -Anesthetic Used 4% Lidocaine Solution [Edema Assessment] -Lower Limb Edema Present Yes -Right Calf (cm) 57.3 -Right Ankle (cm) 25.5 -Left Calf (cm) 55 -Left Ankle (cm) 26.2 WC - Nurse 2 - General Ulcer CM Notes Start: 02/10/18 15:28 Freq: Status: Active Protocol: Activity Type Activity Date Activity User E-Sign Co-Sign Detail Recorded Client Recorded Date Recorded By Document 03/05/18 13:44 [id number] 03/05/18 13:45 03/05/18 13:44 Wound Center Nurse 2 [Procedure/Treatment] #8 [id number] CALF cluster -Time 13:44 -Correct Patient Yes -Correct Side, Site, Position Yes -Correct Procedure Yes -Procedure Performed Yes -Type of Procedure Debridement -Clinical Debridement Subcutaneous -Post Debridement Size (cm) - Length 11.6 -Post Debridement Size (cm) - Width 26.1 -Post Debridement Size (cm) - Depth 0.1 -Total Square Cm 302.76 -Wound/Ulcer Outcome Not Healed -Ulcer Cleansing Rinsed/ Irrigated with Saline -Foul Odor after Cleansing No -Bioengineered Tissue No -Topical Lidocaine (%) 4 -Bleeding Controlled with Pressure -Treatment Response Procedure Tolerated Well #4 L Lat LE cluster -Time 13:45 -Correct Patient Yes -Correct Side, Site, Position Yes -Correct Procedure Yes -Procedure Performed Yes -Type of Procedure Debridement -Clinical Debridement Subcutaneous -Post Debridement Size (cm) - Length 6.9 -Post Debridement Size (cm) - Width 14.6 -Post Debridement Size (cm) - Depth 0.2 -Total Square Cm 100.74 -Wound/Ulcer Outcome Not Healed -Ulcer Cleansing Rinsed/ Irrigated with Saline -Foul Odor after Cleansing No -Bioengineered Tissue No -Topical Lidocaine (%) 4 -Bleeding Controlled with Pressure -Treatment Response Procedure Tolerated Well [See Physician Procedure note for Specifics] Pain Scale: 0-10 Numeric [Pain] -Is Patient Pain Free? Yes Musculoskeletal: No Tenderness to Palpation of Joints or Extremities, Muscle Wasting, - - Compartments of bilateral lower extremity remain soft Neurological: - - Lack of full sensation with debridement noted today bilateral; decreased pain with manipulation debridement is apparent today Psych/Mental Status: Normal Affect, Appropriate Debridement Note Post-Debridement Measurements/Treatment WC - Nurse 2 - General Ulcer CM Notes Start: 02/10/18 15:28 Freq: Status: Active Protocol: Activity Type Activity Date Activity User E-Sign Co-Sign Detail Recorded Client Recorded Date Recorded By Document 02/10/18 16:57 JS [id number] 02/10/18 17:04 JS Document 02/19/18 09:57 JF [id number] 02/19/18 10:00 JF Document 02/26/18 13:47 TM [id number] 02/26/18 13:56 TM Document 03/05/18 13:44 [id number] 03/05/18 13:45 02/10/18 0702/26/18 16:57 09:57 13:47 Wound Center Nurse 2 #8 [id number] CALF cluster -Time 16:57 09:57 13:55 -Correct Patient Yes Yes Yes -Correct Side, Site, Position Yes Yes Yes -Correct Procedure Yes Yes Yes -Procedure Performed No Yes Yes -Type of Procedure Debridement Debridement -Clinical Debridement Subcutaneous Subcutaneous -Post Debridement Size (cm) - Length 11.1 10.6 -Post Debridement Size (cm) - Width 13.6 21.5 -Post Debridement Size (cm) - Depth 0.2 0.2 -Total Square Cm 150.96 227.90 -Wound/Ulcer Outcome Not Healed Not Healed Not Healed -Ulcer Cleansing Not Cleansed Rinsed/ Rinsed/ Irrigated with Irrigated with Saline Saline -Foul Odor after Cleansing No No No -Bioengineered Tissue No No No -Topical Lidocaine (%) 4 4 -Lidocaine (ml) 15 -Bleeding Controlled with NA Pressure Pressure -Other 60% debrided -Treatment Response Procedure Not Procedure Tolerated Well Tolerated Well #4 L Lat LE cluster -Time 16:58 09:58 13:56 -Correct Patient Yes Yes Yes -Correct Side, Site, Position Yes Yes Yes -Correct Procedure Yes Yes Yes -Procedure Performed No Yes Yes -Type of Procedure Debridement Debridement -Clinical Debridement Subcutaneous Subcutaneous -Post Debridement Size (cm) - Length 6.4 6.8 -Post Debridement Size (cm) - Width 10.1 14.5 -Post Debridement Size (cm) - Depth 0.2 0.2 -Total Square Cm 64.64 98.60 -Wound/Ulcer Outcome Not Healed Not Healed Not Healed -Ulcer Cleansing Not Cleansed Rinsed/ Rinsed/ Irrigated with Irrigated with Saline Saline -Foul Odor after Cleansing No No No -Bioengineered Tissue No No No -Topical Lidocaine (%) 4 -Lidocaine (ml) 15 -Bleeding Controlled with NA Pressure Pressure -Other 60% debrided. -Treatment Response Procedure Procedure Tolerated Well Tolerated Well Pain Scale: 0-10 Numeric Is Patient Pain Free? Yes Yes 03/05/18 13:44 Wound Center Nurse 2 #8 [id number] CALF cluster -Time 13:44 -Correct Patient Yes -Correct Side, Site, Position Yes -Correct Procedure Yes -Procedure Performed Yes -Type of Procedure Debridement -Clinical Debridement Subcutaneous -Post Debridement Size (cm) - Length 11.6 -Post Debridement Size (cm) - Width 26.1 -Post Debridement Size (cm) - Depth 0.1 -Total Square Cm 302.76 -Wound/Ulcer Outcome Not Healed -Ulcer Cleansing Rinsed/ Irrigated with Saline -Foul Odor after Cleansing No -Bioengineered Tissue No -Topical Lidocaine (%) 4 -Lidocaine (ml) -Bleeding Controlled with Pressure -Other -Treatment Response Procedure Tolerated Well #4 L Lat LE cluster -Time 13:45 -Correct Patient Yes -Correct Side, Site, Position Yes -Correct Procedure Yes -Procedure Performed Yes -Type of Procedure Debridement -Clinical Debridement Subcutaneous -Post Debridement Size (cm) - Length 6.9 -Post Debridement Size (cm) - Width 14.6 -Post Debridement Size (cm) - Depth 0.2 -Total Square Cm 100.74 -Wound/Ulcer Outcome Not Healed -Ulcer Cleansing Rinsed/ Irrigated with Saline -Foul Odor after Cleansing No -Bioengineered Tissue No -Topical Lidocaine (%) 4 -Lidocaine (ml) -Bleeding Controlled with Pressure -Other -Treatment Response Procedure Tolerated Well Pain Scale: 0-10 Numeric Is Patient Pain Free? Yes Wound debrided: leg Laterality: Right Wound Grade/Stage: grade 1 Type of Debridement: Excisional debridement Anesthesia Used: 4% Lidocaine Solution Depth: in the subcutaneous layer Percentage of wound debrided: 60 Instrument Used: #15 blade Tissue Removed: fibrous, devitalized subcutaneous, biofilm, slough Severity: Fat Layer Exposed Amount of bleeding with debridement: Mild Bleeding Controlled with: Pressure Patient tolerated procedure well - Additional Wound Wound debrided: leg Laterality: Left Wound Grade/Stage: grade 1 Type of Debridement: Excisional debridement Anesthesia Used: 4% Lidocaine Solution Depth: in the subcutaneous layer Percentage of wound debrided: 60 Instrument Used: #15 blade Tissue Removed: fibrous, devitalized subcutaneous, biofilm, slough Severity: Fat Layer Exposed Amount of bleeding with debridement: Mild Bleeding Controlled with: Pressure Patient tolerated procedure: Patient tolerated procedure well Assessment/Plan Active Problems Ulcer of left lower extremity with fat layer exposed (Chronic) Type 2 diabetes mellitus with diabetic polyneuropathy (Chronic) Delayed wound healing (Chronic) Ulcer of left lower extremity with fat layer exposed (Chronic) Chronic ulcer of right leg with fat layer exposed (Chronic) Diabetes mellitus with polyneuropathy (Chronic) Assessment: This is a 72-year-old female with Parkinson's disease. She suffers from severe swelling, edema, and lymphedema in her lower extremities, associated with ulcerations bilaterally. She also recently had an elevated hemoglobin A1c level consistent with diabetic status. The patient is relatively immobile. She sleeps in a recliner, with her legs in a dependent position. She sits idlely for long periods each day. Recent cultures have been positive for Proteus and Pseudomonas, the patient has completed a course of oral Cipro and Augmentin with local resolution of infection. She was also seen by infectious disease a couple weeks ago and is now established. The patient has been using Dry Max and Jimy wraps to her lower extremities. She has previously undergone bilateral venous ablation procedures. It is felt that the patient would benefit from lifestyle modification. Enhanced efforts at elevation of the patient's lower extremities is recommended. The patient has been advised to sleep with her legs level with her heart, if not higher. Leg elevation has been recommended even during daytime hours. She has been advised to refrain from prolonged idle sitting. Activity has been encouraged, the patient is somewhat limited due to her Parkinson's disease. It is likely that the patient would benefit from enhanced compression to the lower extremities. A noninvasive lower extremity arterial study was obtained to assess the patient's arterial status, which will determine whether enhanced degrees of compression can be implemented. This was completed. The patient has been advised to implement the use of her pneumatic compression pumps at least 2 or 3 times daily. Optimization of the patient's nutrition has been recommended as well. Plan: I reviewed her case and ongoing treatment plan. Debridement was performed as noted above and in the clinical panel (subcutaneous). 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 It is noted her body habitus is limiting the results. To continue diuresis plan with her primary care physician; she has not been able to start this yet due to ongoing inabilty to get to the rest room multiple times per day. A referral was provided to Dr. Kunz and she completed the planned venous intervention; to continue as advised. Her noninvasive vascular studies demonstrate calcification making this nonconclusive. I recommend she also follows up with Dr. Kunz for this; she is now amendable and a referral will be completed. Today, a multilayer later compression dressing was applied to the lower extremities. She is advised to use CircAid compression in addition at home. A referral to the lymphedema clinic was also provided and potential intervention such as lymphatic massage, other compression pumps and garments were discussed. A compression pump has been received and she was advised to continue this twice daily. To continue absorption dressings. This will be changed by home health a couple times a week and was applied today. She may also want to consider jail facility placement if she is not able to have the appropriate support at home with home health and family help. She is doing well with this so far and demonstrates less periwound moisture and inflammation. We discussed in depth the importance of edema control. To keep legs elevated above heart while resting. To avoid lying directly on the wound while seated or in bed. To avoid idle standing or sitting for prolonged time. To monitor for signs of infection; she was reassured that this is not noted today. To continue take ibuprofen only as needed with caution. She was advised on safe and proper use. Updated culture tissue specimen was reviewed and it is noted she completed an oral course of Augmentin and Cipro. Clinically her infection status is greatly improved and she did he will see infectious disease today which is greatly appreciated. Additional intervention at this time is not recommended. It is noted her hemoglobin A1c is elevated I recommend she follows up with Dr. Horvath her primary care physician to see if diabetes management initiation is appropriate. To RTC (wound center) in 1 week with wound center or call sooner if she has questions or concerns. I answered all of her questions.
--- NOTE | 2018-03-05 14:49 | PN.PCM_ITS ---
(1) Chronic ulcer of right leg with fat layer exposed Status: Chronic Current Visit: Yes Code(s): L97.912 - 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chronic ulcer of unspecified part of right lower leg with fat layer exposed (2) Ulcer of left lower extremity with fat layer exposed Status: Chronic Current Visit: Yes Code(s): L97.922 - 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chronic ulcer of unspecified part of left lower leg with fat layer exposed (3) Left leg pain Status: Resolved Current Visit: No Code(s): M79.605 - Pain in left leg (4) Edema, leg Status: Chronic Current Visit: No Code(s): R60.0 - Localized edema (5) Chronic venous insufficiency Status: Chronic Current Visit: No Code(s): I87.2 - Venous insufficiency ( chronic) (peripheral) (6) Lymphedema of right lower extremity Status: Chronic Current Visit: No Code(s): I89.0 - Lymphedema, not elsewhere classified (7) Delayed wound healing Status: Chronic Current Visit: Yes Code(s): T14.8 - Other injury of unspecified body region (8) Diabetes mellitus with polyneuropathy Status: Chronic Current Visit: Yes Qualifiers: Diabetes mellitus type: type 2 Qualified Code(s): E11.42 - Type 2 diabetes mellitus with diabetic polyneuropathy Code(s): E11.42 - Type 2 diabetes mellitus with diabetic polyneuropathy Type of Wound Date of Service: 03/05/18 Chief Complaint: Bilateral lower extremity swelling, edema, and lymphedema; chronic venous insufficiency; bilateral calf ulcerations. History of Wound: This is a 72-year-old female with a long-standing history of chronic swelling, edema, and lymphedema in her lower extremities. She has had ulcerations in her lower extremities bilaterally for more than 1 year. She sleeps in a recliner, with her legs in a dependent position. She suffers from Parkinson's disease, and has difficulties maneuvering herself into and out of a regular bed. She is not very active, and spends long hours each day in an idle sitting position. As result of her inactivity, she is not recruiting the calf and foot muscle pumps to aid venous return. Her last lower extremity arterial study was approximately 2 years ago, though was relatively normal. She had this study repeated and recently. She has been under the care of Dr. Kolby Kunz, vascular surgeon, and has undergone staged, bilateral lower extremity venous ablation procedures. I recommend she return to Dr. Kunz for follow-up of her recent abnormal vascular studies demonstrate noncompressibility and calcification of the arteries to the lower extremities. She is amenable at this time and a referral will be sent. She is currently using Dry Max and Jimy wraps to her lower extremities. She owns CircAid Velcro compression garments, but is not using. She also has pneumatic mechanical compression pumps, which she claims to be using once daily, though her compliance is in question. The ulcerations on her lower extremities are said to be highly exudative. She is not able to take Lasix as recommended due to urination frequency urinary incontinence. Progress of Wound: Worse - Physical Exam Vital Signs Temp Pulse Resp BP 96.4 F L 80 16 88/62 L 03/05/18 13:25 03/05/18 13:25 03/05/18 13:25 03/05/18 13:25 General: Alert, Oriented x3, Cooperative Extremities: No cyanosis, Capillary Refill Less than 3 Seconds, No Calf Tenderness - Negative Cassie and Benitez bilateral, Diminished Peripheral Pulses, Edema Skin: Ulcer/ Wound - No purulence, no erythema, streaking, no odor, no infection bilateral lower extremities. The wound size has increased and there is increased circumferential sub-hemorrhagic tissue now in the lower extremity edema has clearly increased compared to last visit. Her skin is very friable, atrophic, and without hair. There is no exposed eschar or deep tissue noted. Wound Measurements and Assessment WC - Nurse 1 - General Ulcer Measurement Start: 02/10/18 15:28 Freq: Status: Active Protocol: Activity Type Activity Date Activity User E-Sign Co-Sign Detail Recorded Client Recorded Date Recorded By Document 03/05/18 13:25 JF [id number] 03/05/18 13:28 JF 03/05/18 13:25 Wound Center Nurse 1 [Ulcer Assessment] #8 [id number] CALF cluster -Combined with other wound No -Current Size (cm) - Length 11.5 -Current Size (cm) - Width 26.0 -Current Size (cm) - Depth 0.1 -Total Square Cm 299.00 -Photo Taken No -Epithelialization None Present -Tunneling No -Undermining/Tunneling No -Circular Undermining No -Exudate Amt Large (67-100%) -Exudate Type Serosanguineous -Wound Margin Flat & Intact -Granulation Amt None Present (0 %) -Slough/Fibrin Yes -Necrosis Amt Large (67-100%) -Necrotic Tissue Type Adherent Slough -Structure Exposed N/A -Texture (Vickie-wound Skin Appearance) Assessed Localized Edema -Moisture (Vickie-wound Skin Appearance Assessed ) Weeping -Color (Vickie-wound Skin Appearance) Assessed Hemosiderin Staining -Temperature (Vickie-wound Skin No Abnormality Appearance) (Pt Warm) -Tenderness on Palpation (Vickie-wound No Skin Appearance) -Ulcer Cleansing Wound Cleanser -Foul Odor after Cleansing No -Anesthetic Used 4% Lidocaine Solution #4 L Lat LE cluster -Combined with other wound No -Current Size (cm) - Length 9 -Current Size (cm) - Width 15 -Current Size (cm) - Depth 0.1 -Total Square Cm 135 -Photo Taken No -Epithelialization Small 1-33% -Tunneling No -Undermining/Tunneling No -Circular Undermining No -Exudate Amt Large (67-100%) -Exudate Type Serosanguineous -Wound Margin Flat & Intact -Granulation Amt Medium (34-66%) -Granulation Quality [place] -Slough/Fibrin Yes -Necrosis Amt Small (1-33%) -Necrotic Tissue Type Adherent Slough -Structure Exposed N/A -Texture (Vickie-wound Skin Appearance) Assessed Localized Edema -Moisture (Vickie-wound Skin Appearance Assessed ) Weeping -Color (Vickie-wound Skin Appearance) Assessed Hemosiderin Staining -Temperature (Vickie-wound Skin No Abnormality Appearance) (Pt Warm) -Tenderness on Palpation (Vickie-wound No Skin Appearance) -Ulcer Cleansing Wound Cleanser -Foul Odor after Cleansing No -Anesthetic Used 4% Lidocaine Solution [Edema Assessment] -Lower Limb Edema Present Yes -Right Calf (cm) 57.3 -Right Ankle (cm) 25.5 -Left Calf (cm) 55 -Left Ankle (cm) 26.2 WC - Nurse 2 - General Ulcer CM Notes Start: 02/10/18 15:28 Freq: Status: Active Protocol: Activity Type Activity Date Activity User E-Sign Co-Sign Detail Recorded Client Recorded Date Recorded By Document 03/05/18 13:44 [id number] 03/05/18 13:45 03/05/18 13:44 Wound Center Nurse 2 [Procedure/Treatment] #8 [id number] CALF cluster -Time 13:44 -Correct Patient Yes -Correct Side, Site, Position Yes -Correct Procedure Yes -Procedure Performed Yes -Type of Procedure Debridement -Clinical Debridement Subcutaneous -Post Debridement Size (cm) - Length 11.6 -Post Debridement Size (cm) - Width 26.1 -Post Debridement Size (cm) - Depth 0.1 -Total Square Cm 302.76 -Wound/Ulcer Outcome Not Healed -Ulcer Cleansing Rinsed/ Irrigated with Saline -Foul Odor after Cleansing No -Bioengineered Tissue No -Topical Lidocaine (%) 4 -Bleeding Controlled with Pressure -Treatment Response Procedure Tolerated Well #4 L Lat LE cluster -Time 13:45 -Correct Patient Yes -Correct Side, Site, Position Yes -Correct Procedure Yes -Procedure Performed Yes -Type of Procedure Debridement -Clinical Debridement Subcutaneous -Post Debridement Size (cm) - Length 6.9 -Post Debridement Size (cm) - Width 14.6 -Post Debridement Size (cm) - Depth 0.2 -Total Square Cm 100.74 -Wound/Ulcer Outcome Not Healed -Ulcer Cleansing Rinsed/ Irrigated with Saline -Foul Odor after Cleansing No -Bioengineered Tissue No -Topical Lidocaine (%) 4 -Bleeding Controlled with Pressure -Treatment Response Procedure Tolerated Well [See Physician Procedure note for Specifics] Pain Scale: 0-10 Numeric [Pain] -Is Patient Pain Free? Yes Musculoskeletal: No Tenderness to Palpation of Joints or Extremities, Muscle Wasting, - - Compartments of bilateral lower extremity remain soft Neurological: - - Lack of full sensation with debridement noted today bilateral ; decreased pain with manipulation debridement is apparent today Psych/Mental Status: Normal Affect, Appropriate Debridement Note Post-Debridement Measurements/Treatment WC - Nurse 2 - General Ulcer CM Notes Start: 02/10/18 15:28 Freq: Status: Active Protocol: Activity Type Activity Date Activity User E-Sign Co-Sign Detail Recorded Client Recorded Date Recorded By Document 02/10/18 16:57 JS [id number] 02/10/18 17:04 JS Document 02/19/18 09:57 JF [id number] 02/19/18 10:00 JF Document 02/26/18 13:47 TM [id number] 02/26/18 13:56 TM Document 03/05/18 13:44 [id number] 03/05/18 13:45 02/10/18 0702/26/18 16:57 09:57 13:47 Wound Center Nurse 2 #8 [id number] CALF cluster -Time 16:57 09:57 13:55 -Correct Patient Yes Yes Yes -Correct Side, Site, Position Yes Yes Yes -Correct Procedure Yes Yes Yes -Procedure Performed No Yes Yes -Type of Procedure Debridement Debridement -Clinical Debridement Subcutaneous Subcutaneous -Post Debridement Size (cm) - Length 11.1 10.6 -Post Debridement Size (cm) - Width 13.6 21.5 -Post Debridement Size (cm) - Depth 0.2 0.2 -Total Square Cm 150.96 227.90 -Wound/Ulcer Outcome Not Healed Not Healed Not Healed -Ulcer Cleansing Not Cleansed Rinsed/ Rinsed/ Irrigated with Irrigated with Saline Saline -Foul Odor after Cleansing No No No -Bioengineered Tissue No No No -Topical Lidocaine (%) 4 4 -Lidocaine (ml) 15 -Bleeding Controlled with NA Pressure Pressure -Other 60% debrided -Treatment Response Procedure Not Procedure Tolerated Well Tolerated Well #4 L Lat LE cluster -Time 16:58 09:58 13:56 -Correct Patient Yes Yes Yes -Correct Side, Site, Position Yes Yes Yes -Correct Procedure Yes Yes Yes -Procedure Performed No Yes Yes -Type of Procedure Debridement Debridement -Clinical Debridement Subcutaneous Subcutaneous -Post Debridement Size (cm) - Length 6.4 6.8 -Post Debridement Size (cm) - Width 10.1 14.5 -Post Debridement Size (cm) - Depth 0.2 0.2 -Total Square Cm 64.64 98.60 -Wound/Ulcer Outcome Not Healed Not Healed Not Healed -Ulcer Cleansing Not Cleansed Rinsed/ Rinsed/ Irrigated with Irrigated with Saline Saline -Foul Odor after Cleansing No No No -Bioengineered Tissue No No No -Topical Lidocaine (%) 4 -Lidocaine (ml) 15 -Bleeding Controlled with NA Pressure Pressure -Other 60% debrided. -Treatment Response Procedure Procedure Tolerated Well Tolerated Well Pain Scale: 0-10 Numeric Is Patient Pain Free? Yes Yes 03/05/18 13:44 Wound Center Nurse 2 #8 [id number] CALF cluster -Time 13:44 -Correct Patient Yes -Correct Side, Site, Position Yes -Correct Procedure Yes -Procedure Performed Yes -Type of Procedure Debridement -Clinical Debridement Subcutaneous -Post Debridement Size (cm) - Length 11.6 -Post Debridement Size (cm) - Width 26.1 -Post Debridement Size (cm) - Depth 0.1 -Total Square Cm 302.76 -Wound/Ulcer Outcome Not Healed -Ulcer Cleansing Rinsed/ Irrigated with Saline -Foul Odor after Cleansing No -Bioengineered Tissue No -Topical Lidocaine (%) 4 -Lidocaine (ml) -Bleeding Controlled with Pressure -Other -Treatment Response Procedure Tolerated Well #4 L Lat LE cluster -Time 13:45 -Correct Patient Yes -Correct Side, Site, Position Yes -Correct Procedure Yes -Procedure Performed Yes -Type of Procedure Debridement -Clinical Debridement Subcutaneous -Post Debridement Size (cm) - Length 6.9 -Post Debridement Size (cm) - Width 14.6 -Post Debridement Size (cm) - Depth 0.2 -Total Square Cm 100.74 -Wound/Ulcer Outcome Not Healed -Ulcer Cleansing Rinsed/ Irrigated with Saline -Foul Odor after Cleansing No -Bioengineered Tissue No -Topical Lidocaine (%) 4 -Lidocaine (ml) -Bleeding Controlled with Pressure -Other -Treatment Response Procedure Tolerated Well Pain Scale: 0-10 Numeric Is Patient Pain Free? Yes Wound debrided: leg Laterality: Right Wound Grade/Stage: grade 1 Type of Debridement: Excisional debridement Anesthesia Used: 4% Lidocaine Solution Depth: in the subcutaneous layer Percentage of wound debrided: 60 Instrument Used: #15 blade Tissue Removed: fibrous, devitalized subcutaneous, biofilm, slough Severity: Fat Layer Exposed Amount of bleeding with debridement: Mild Bleeding Controlled with: Pressure Patient tolerated procedure well - Additional Wound Wound debrided: leg Laterality: Left Wound Grade/Stage: grade 1 Type of Debridement: Excisional debridement Anesthesia Used: 4% Lidocaine Solution Depth: in the subcutaneous layer Percentage of wound debrided: 60 Instrument Used: #15 blade Tissue Removed: fibrous, devitalized subcutaneous, biofilm, slough Severity: Fat Layer Exposed Amount of bleeding with debridement: Mild Bleeding Controlled with: Pressure Patient tolerated procedure: Patient tolerated procedure well Assessment/Plan Active Problems Ulcer of left lower extremity with fat layer exposed (Chronic) Type 2 diabetes mellitus with diabetic polyneuropathy (Chronic) Delayed wound healing (Chronic) Ulcer of left lower extremity with fat layer exposed (Chronic) Chronic ulcer of right leg with fat layer exposed (Chronic) Diabetes mellitus with polyneuropathy (Chronic) Assessment: This is a 72-year-old female with Parkinson's disease. She suffers from severe swelling, edema, and lymphedema in her lower extremities, associated with ulcerations bilaterally. She also recently had an elevated hemoglobin A1c level consistent with diabetic status. The patient is relatively immobile. She sleeps in a recliner, with her legs in a dependent position. She sits idlely for long periods each day. Recent cultures have been positive for Proteus and Pseudomonas, the patient has completed a course of oral Cipro and Augmentin with local resolution of infection. She was also seen by infectious disease a couple weeks ago and is now established. The patient has been using Dry Max and Jimy wraps to her lower extremities. She has previously undergone bilateral venous ablation procedures. It is felt that the patient would benefit from lifestyle modification. Enhanced efforts at elevation of the patient's lower extremities is recommended. The patient has been advised to sleep with her legs level with her heart, if not higher. Leg elevation has been recommended even during daytime hours. She has been advised to refrain from prolonged idle sitting. Activity has been encouraged, the patient is somewhat limited due to her Parkinson's disease. It is likely that the patient would benefit from enhanced compression to the lower extremities. A noninvasive lower extremity arterial study was obtained to assess the patient' s arterial status, which will determine whether enhanced degrees of compression can be implemented. This was completed. The patient has been advised to implement the use of her pneumatic compression pumps at least 2 or 3 times daily. Optimization of the patient's nutrition has been recommended as well. Plan: I reviewed her case and ongoing treatment plan. Debridement was performed as noted above and in the clinical panel (subcutaneous). 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 It is noted her body habitus is limiting the results. To continue diuresis plan with her primary care physician; she has not been able to start this yet due to ongoing inabilty to get to the rest room multiple times per day. A referral was provided to Dr. Kunz and she completed the planned venous intervention; to continue as advised. Her noninvasive vascular studies demonstrate calcification making this nonconclusive. I recommend she also follows up with Dr. Kunz for this; she is now amendable and a referral will be completed. Today, a multilayer later compression dressing was applied to the lower extremities. She is advised to use CircAid compression in addition at home. A referral to the lymphedema clinic was also provided and potential intervention such as lymphatic massage, other compression pumps and garments were discussed. A compression pump has been received and she was advised to continue this twice daily. To continue absorption dressings. This will be changed by home health a couple times a week and was applied today. She may also want to consider correction facility placement if she is not able to have the appropriate support at home with home health and family help. She is doing well with this so far and demonstrates less periwound moisture and inflammation. We discussed in depth the importance of edema control. To keep legs elevated above heart while resting. To avoid lying directly on the wound while seated or in bed. To avoid idle standing or sitting for prolonged time. To monitor for signs of infection; she was reassured that this is not noted today. To continue take ibuprofen only as needed with caution. She was advised on safe and proper use. Updated culture tissue specimen was reviewed and it is noted she completed an oral course of Augmentin and Cipro. Clinically her infection status is greatly improved and she did he will see infectious disease today which is greatly appreciated. Additional intervention at this time is not recommended. It is noted her hemoglobin A1c is elevated I recommend she follows up with Dr. Horvath her primary care physician to see if diabetes management initiation is appropriate. To RTC (wound center) in 1 week with wound center or call sooner if she has questions or concerns. I answered all of her questions.
== END 2018-03-11 23:59 ==
LOC: WC 13:00
PROVIDERS: Family Provider Internal Medicine; PCP Internal Medicine; Visit Provider Podiatrist
DX: E11.622 Type 2 diabetes mellitus with other skin ulcer (principal); I87.2 Venous insufficiency (chronic) (peripheral); E11.42 Type 2 diabetes mellitus with diabetic polyneuropathy; I89.0 Lymphedema, not elsewhere classified; L97.822 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chronic ulcer of other part of left lower leg with fat layer exposed; L97.812 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chronic ulcer of other part of right lower leg with fat layer exposed; R60.0 Localized edema; L03.115 Cellulitis of right lower limb; M79.604 Pain in right leg; G20 Parkinson's disease; M79.89 Other specified soft tissue disorders; I70.248 Atherosclerosis of native arteries of left leg with ulceration of other part of lower leg; I70.238 Atherosclerosis of native arteries of right leg with ulceration of other part of lower leg; B35.1 Tinea unguium
CPT/HCPCS: 11042; 11045; 11721; 93922

== ENCOUNTER 2018-04-09 14:45 | Outpatient (RCR) | payer MEDICARE, OTHER, SELFPAY ==
[2018-03-12 00:32] VITALS: BP 88/62; PULSE 80; RESP 16; TEMP 35.8
[2018-03-12 13:07] VITALS: BP 100/58; PULSE 83; RESP 16; TEMP 36.5
--- NOTE | 2018-03-12 14:03 | PCM.WC.PN ---
(1) Chronic ulcer of right leg with fat layer exposed Status: Chronic Current Visit: Yes Code(s): L97.912 - 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chronic ulcer of unspecified part of right lower leg with fat layer exposed (2) Ulcer of left lower extremity with fat layer exposed Status: Chronic Current Visit: Yes Code(s): L97.922 - 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chronic ulcer of unspecified part of left lower leg with fat layer exposed (3) Venous ulcer of left leg Status: Chronic Current Visit: Yes Code(s): I83.029 - Varicose veins of left lower extremity with ulcer of unspecified site; L97.929 - 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chronic ulcer of unspecified part of left lower leg with unspecified severity (4) Lymphedema of right lower extremity Status: Chronic Current Visit: Yes Code(s): I89.0 - Lymphedema, not elsewhere classified (5) Type 2 diabetes mellitus with diabetic polyneuropathy Status: Chronic Current Visit: Yes Code(s): E11.42 - Type 2 diabetes mellitus with diabetic polyneuropathy (6) Delayed wound healing Status: Chronic Current Visit: Yes Code(s): T14.8 - Other injury of unspecified body region Type of Wound Date of Service: 03/12/18 Chief Complaint: Bilateral lower extremity swelling, edema, and lymphedema; chronic venous insufficiency; bilateral calf ulcerations. History of Wound: This is a 72-year-old female with a long-standing history of chronic swelling, edema, and lymphedema in her lower extremities. She has had ulcerations in her lower extremities bilaterally for more than 1 year. She sleeps in a recliner, with her legs in a dependent position. She is working on increasing her bed activities that she can better elevate her legs. She does need to get a hand rail and set her bedside commode up in this room and she continues to work on these things. She suffers from Parkinson's disease, and has difficulties maneuvering herself into and out of a regular bed. She is not very active, and spends long hours each day in an idle sitting position. As result of her inactivity, she is not recruiting the calf and foot muscle pumps to aid venous return. Her last lower extremity arterial study was approximately 2 years ago, though was relatively normal. She had this study repeated and recently. She has been under the care of Dr. Kolby Kunz, vascular surgeon, and has undergone staged, bilateral lower extremity venous ablation procedures. I recommend she return to Dr. Kunz for follow-up of her recent abnormal vascular studies demonstrate noncompressibility and calcification of the arteries to the lower extremities. She has not been able to make this appointment yet as advised. This referral is faxed last week. She is currently using Dry Max and Jimy wraps to her lower extremities. She owns CircAid Velcro compression garments, but is not using. She also has pneumatic mechanical compression pumps, which she claims to be using once daily, though her compliance is in question. The ulcerations on her lower extremities are said to be highly exudative. She is not able to take Lasix as recommended due to urination frequency urinary incontinence. Progress of Wound: Improving - Physical Exam Vital Signs Temp Pulse Resp BP 97.7 F L 83 16 100/58 L 03/12/18 13:07 03/12/18 13:07 03/12/18 13:07 03/12/18 13:07 General: Alert, Oriented x3, Cooperative Extremities: No cyanosis, Capillary Refill Less than 3 Seconds, No Calf Tenderness - Negative and Benitez sign bilateral, Diminished Peripheral Pulses, Edema - Bilateral lower extremities with induration and this is decreased compared to last week Skin: Ulcer/ Wound - No purulence, no erythema, streaking, odor, no infection bilateral lower extremities. The peripheral skin is atrophic. There is some islands of epithelialization and peripheral epithelialization noted Wound Measurements and Assessment WC - Nurse 1 - General Ulcer Measurement Start: 03/12/18 13:07 Freq: Status: Active Protocol: Activity Type Activity Date Activity User E-Sign Co-Sign Detail Recorded Client Recorded Date Recorded By Document 03/12/18 13:07 [id number] 03/12/18 13:24 03/12/18 13:07 Wound Center Nurse 1 [Ulcer Assessment] #8 [id number] CALF cluster -Combined with other wound No -Current Size (cm) - Length 22.5 -Current Size (cm) - Width 7.5 -Current Size (cm) - Depth 0.2 -Total Square Cm 168.75 -Date of Last Picture (Recall this 03/12/18 field) -Photo Taken Yes -Epithelialization None Present -Tunneling No -Undermining/Tunneling No -Circular Undermining No -Exudate Amt Large (67-100%) -Exudate Type Serosanguineous -Wound Margin Distinct, Outline Attached -Granulation Amt Medium (34-66%) -Granulation Quality [place] Red -Slough/Fibrin Yes -Necrosis Amt None Present (0 %) -Necrotic Tissue Type Adherent Slough -Structure Exposed None/Limited to Skin Breakdown -Texture (Vickie-wound Skin Appearance) Assessed Scarring -Moisture (Vickie-wound Skin Appearance Assessed ) Maceration Weeping -Color (Vickie-wound Skin Appearance) Assessed Erythema -Temperature (Vickie-wound Skin No Abnormality Appearance) (Pt Warm) -Tenderness on Palpation (Vickie-wound Yes Skin Appearance) -Ulcer Cleansing Wound Cleanser -Foul Odor after Cleansing No -Anesthetic Used 4% Lidocaine Solution #4 L Lat LE cluster -Combined with other wound No -Current Size (cm) - Length 8.7 -Current Size (cm) - Width 8.5 -Current Size (cm) - Depth 0.2 -Total Square Cm 73.95 -Date of Last Picture (Recall this 03/12/18 field) -Photo Taken Yes -Epithelialization None Present -Tunneling No -Undermining/Tunneling No -Exudate Amt Large (67-100%) -Exudate Type Serosanguineous -Wound Margin Distinct, Outline Attached -Granulation Amt Medium (34-66%) -Granulation Quality [place] Red -Slough/Fibrin Yes -Necrosis Amt Medium (34-66%) -Necrotic Tissue Type Adherent Slough -Structure Exposed None/Limited to Skin Breakdown -Texture (Vickie-wound Skin Appearance) Assessed Excoriation Scarring -Moisture (Vickie-wound Skin Appearance Assessed ) Maceration Weeping -Color (Vickie-wound Skin Appearance) Assessed Erythema -Temperature (Vickie-wound Skin No Abnormality Appearance) (Pt Warm) -Tenderness on Palpation (Vickie-wound Yes Skin Appearance) -Ulcer Cleansing Wound Cleanser -Foul Odor after Cleansing No -Anesthetic Used 4% Lidocaine Solution [Edema Assessment] -Lower Limb Edema Present Yes -Point of measurement (cm from the 53.5 medial instep) -Point of Measurement (cm from the 26.2 medial instep) -Left Calf (cm) 51.1 -Left Ankle (cm) 26.0 WC - Nurse 2 - General Ulcer CM Notes Start: 03/12/18 13:07 Freq: Status: Active Protocol: Activity Type Activity Date Activity User E-Sign Co-Sign Detail Recorded Client Recorded Date Recorded By Document 03/12/18 13:36 [id number] 03/12/18 13:47 03/12/18 13:36 Wound Center Nurse 2 [Procedure/Treatment] #8 [id number] CALF cluster -Time 13:45 -Correct Patient Yes -Correct Side, Site, Position Yes -Correct Procedure Yes -Procedure Performed Yes -Type of Procedure Debridement -Clinical Debridement Subcutaneous -Post Debridement Size (cm) - Length 22.6 -Post Debridement Size (cm) - Width 7.6 -Post Debridement Size (cm) - Depth 0.2 -Total Square Cm 171.76 -Wound/Ulcer Outcome Not Healed -Ulcer Cleansing Rinsed/ Irrigated with Saline -Foul Odor after Cleansing No -Bioengineered Tissue No -Topical Lidocaine (%) 4 -Bleeding Controlled with Pressure -Treatment Response Procedure Tolerated Well #4 L Lat LE cluster -Time 13:45 -Correct Patient Yes -Correct Side, Site, Position Yes -Correct Procedure Yes -Procedure Performed Yes -Type of Procedure Debridement -Clinical Debridement Subcutaneous -Post Debridement Size (cm) - Length 8.8 -Post Debridement Size (cm) - Width 8.6 -Post Debridement Size (cm) - Depth 0.2 -Total Square Cm 75.68 -Wound/Ulcer Outcome Not Healed -Ulcer Cleansing Rinsed/ Irrigated with Saline -Foul Odor after Cleansing No -Bioengineered Tissue No -Topical Lidocaine (%) 4 -Bleeding Controlled with Pressure -Treatment Response Procedure Tolerated Well [See Physician Procedure note for Specifics] Pain Scale: 0-10 Numeric [Pain] -Is Patient Pain Free? Yes Musculoskeletal: No Tenderness to Palpation of Joints or Extremities, Muscle Wasting, - - Compartments remain soft to palpate bilateral lower extremities Neurological: - - Lack of epicritic sensation light touch bilateral. Pain with wound debridement is decreased compared to last week bilateral Psych/Mental Status: Normal Affect, Appropriate Debridement Note Post-Debridement Measurements/Treatment WC - Nurse 2 - General Ulcer CM Notes Start: 03/12/18 13:07 Freq: Status: Active Protocol: Activity Type Activity Date Activity User E-Sign Co-Sign Detail Recorded Client Recorded Date Recorded By Document 03/12/18 13:36 [id number] 03/12/18 13:47 08/01/18 13:36 Wound Center Nurse 2 #8 [id number] CALF cluster -Time 13:45 -Correct Patient Yes -Correct Side, Site, Position Yes -Correct Procedure Yes -Procedure Performed Yes -Type of Procedure Debridement -Clinical Debridement Subcutaneous -Post Debridement Size (cm) - Length 22.6 -Post Debridement Size (cm) - Width 7.6 -Post Debridement Size (cm) - Depth 0.2 -Total Square Cm 171.76 -Wound/Ulcer Outcome Not Healed -Ulcer Cleansing Rinsed/ Irrigated with Saline -Foul Odor after Cleansing No -Bioengineered Tissue No -Topical Lidocaine (%) 4 -Bleeding Controlled with Pressure -Treatment Response Procedure Tolerated Well #4 L Lat LE cluster -Time 13:45 -Correct Patient Yes -Correct Side, Site, Position Yes -Correct Procedure Yes -Procedure Performed Yes -Type of Procedure Debridement -Clinical Debridement Subcutaneous -Post Debridement Size (cm) - Length 8.8 -Post Debridement Size (cm) - Width 8.6 -Post Debridement Size (cm) - Depth 0.2 -Total Square Cm 75.68 -Wound/Ulcer Outcome Not Healed -Ulcer Cleansing Rinsed/ Irrigated with Saline -Foul Odor after Cleansing No -Bioengineered Tissue No -Topical Lidocaine (%) 4 -Bleeding Controlled with Pressure -Treatment Response Procedure Tolerated Well Pain Scale: 0-10 Numeric Is Patient Pain Free? Yes Wound debrided: leg Laterality: Right Wound Grade/Stage: grade 1 Type of Debridement: Excisional debridement Anesthesia Used: 4% Lidocaine Solution Depth: in the subcutaneous layer Percentage of wound debrided: 60 Instrument Used: #15 blade Tissue Removed: Fibrous, devitalized subcutaneous, biofilm, slough Severity: Fat Layer Exposed Amount of bleeding with debridement: Mild Bleeding Controlled with: Pressure Patient tolerated procedure well - Additional Wound Wound debrided: leg Laterality: Left Wound Grade/Stage: grade 1 Type of Debridement: Excisional debridement Anesthesia Used: 4% Lidocaine Solution Depth: in the subcutaneous layer Percentage of wound debrided: 60 Instrument Used: #15 blade Tissue Removed: Fibrous, devitalized subcutaneous, biofilm, slough Severity: Fat Layer Exposed Amount of bleeding with debridement: Mild Bleeding Controlled with: Pressure Patient tolerated procedure: Patient tolerated procedure well Assessment/Plan Active Problems Ulcer of left lower extremity with fat layer exposed (Chronic) Venous ulcer of left leg (Chronic) Lymphedema of right lower extremity (Chronic) Type 2 diabetes mellitus with diabetic polyneuropathy (Chronic) Delayed wound healing (Chronic) Chronic ulcer of right leg with fat layer exposed (Chronic) Assessment: This is a 72-year-old female with Parkinson's disease. She suffers from severe swelling, edema, and lymphedema in her lower extremities, associated with ulcerations bilaterally. She also recently had an elevated hemoglobin A1c level consistent with diabetic status. The patient is relatively immobile. She sleeps in a recliner, with her legs in a dependent position. She sits idlely for long periods each day. She is currently setting up a bed area with a bedside commode handrails to facilitate improved elevation throughout the day. Previous cultures have been positive for Proteus and Pseudomonas, the patient has completed a course of oral Cipro and Augmentin with local resolution of infection. She was also seen by infectious disease a couple weeks ago and is now established. She was reassured no infection signs are noted today. The patient has been using Dry Max and Jimy wraps to her lower extremities. She has previously undergone bilateral venous ablation procedures. It is felt that the patient would benefit from lifestyle modification. Enhanced efforts at elevation of the patient's lower extremities is recommended. The patient has been advised to sleep with her legs level with her heart, if not higher. Leg elevation has been recommended even during daytime hours. She has been advised to refrain from prolonged idle sitting. Activity has been encouraged, the patient is somewhat limited due to her Parkinson's disease. It is likely that the patient would benefit from enhanced compression to the lower extremities. A noninvasive lower extremity arterial study was obtained to assess the patient's arterial status, which will determine whether enhanced degrees of compression can be implemented. This was completed. A referral to follow-up with Dr. Kunz was provided and I encouraged her to call to confirm her follow-up visit for arterial evaluation. The patient has been advised to implement the use of her pneumatic compression pumps at least 2 or 3 times daily. Optimization of the patient's nutrition has been recommended as well. Plan: I reviewed her case and ongoing treatment plan. Debridement was performed as noted above and in the clinical panel (subcutaneous). 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 It is noted her body habitus is limiting the results. To continue diuresis plan with her primary care physician; she has not been able to start this yet due to ongoing inabilty to get to the rest room multiple times per day. A referral was provided to Dr. Kunz and she completed the planned venous intervention; to continue as advised. Her noninvasive vascular studies demonstrate calcification making this nonconclusive. I recommend she also follows up with Dr. Kunz for this; she is now amendable and a referral will be completed. Today, a multilayer later compression dressing was applied to the lower extremities. She is advised to use CircAid compression in addition at home. A referral to the lymphedema clinic was also provided and potential intervention such as lymphatic massage, other compression pumps and garments were discussed. A compression pump has been received and she was advised to continue this twice daily. To continue absorption dressings. This will be changed by home health a couple times a week and was applied today. She may also want to consider detention facility placement if she is not able to have the appropriate support at home with home health and family help. She is doing well with this so far and demonstrates less periwound moisture and inflammation. We discussed in depth the importance of edema control. To keep legs elevated above heart while resting. To avoid lying directly on the wound while seated or in bed. To avoid idle standing or sitting for prolonged time. To monitor for signs of infection; she was reassured that this is not noted today. To continue take ibuprofen only as needed with caution. She was advised on safe and proper use. Updated culture tissue specimen was reviewed and it is noted she completed an oral course of Augmentin and Cipro. Clinically her infection status is greatly improved and she did he will see infectious disease today which is greatly appreciated. Additional intervention at this time is not recommended. It is noted her hemoglobin A1c is elevated I recommend she follows up with Dr. Horvath her primary care physician to see if diabetes management initiation is appropriate. To RTC (wound center) in 1 week with wound center or call sooner if she has questions or concerns. I answered all of her questions.
[2018-03-19 13:09] VITALS: BP 111/60; PULSE 112; RESP 18; TEMP 36
--- NOTE | 2018-03-19 16:41 | PN.PCM_ITS ---
(1) Chronic ulcer of right leg with fat layer exposed Status: Chronic Code(s): L97.912 - 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chronic ulcer of unspecified part of right lower leg with fat layer exposed (2) Ulcer of left lower extremity with fat layer exposed Status: Chronic Code(s): L97.922 - 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chronic ulcer of unspecified part of left lower leg with fat layer exposed (3) Venous ulcer of left leg Status: Chronic Code(s): I83.029 - Varicose veins of left lower extremity with ulcer of unspecified site; L97.929 - 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chronic ulcer of unspecified part of left lower leg with unspecified severity (4) Lymphedema of right lower extremity Status: Chronic Code(s): I89.0 - Lymphedema, not elsewhere classified (5) Type 2 diabetes mellitus with diabetic polyneuropathy Status: Chronic Code(s): E11.42 - Type 2 diabetes mellitus with diabetic polyneuropathy (6) Delayed wound healing Status: Chronic Code(s): T14.8 - Other injury of unspecified body region Type of Wound Date of Service: 03/22/18 Chief Complaint: Bilateral lower extremity swelling, edema, and lymphedema; chronic venous insufficiency; bilateral calf ulcerations. History of Wound: This is a 72-year-old female with a long-standing history of chronic swelling, edema, and lymphedema in her lower extremities. She has had ulcerations in her lower extremities bilaterally for more than 1 year. She sleeps in a recliner, with her legs in a dependent position. She is working on increasing her bed activities that she can better elevate her legs. She does need to get a hand rail and set her bedside commode up in this room and she continues to work on these things. She suffers from Parkinson's disease, and has difficulties maneuvering herself into and out of a regular bed. She is not very active, and spends long hours each day in an idle sitting position. As result of her inactivity, she is not recruiting the calf and foot muscle pumps to aid venous return. Her last lower extremity arterial study was approximately 2 years ago, though was relatively normal. She had this study repeated and recently. She has been under the care of Dr. Kolby Kunz, vascular surgeon, and has undergone staged, bilateral lower extremity venous ablation procedures. I recommend she return to Dr. Kunz for follow-up of her recent abnormal vascular studies demonstrate noncompressibility and calcification of the arteries to the lower extremities. She has not been able to make this appointment yet as advised. This referral is faxed last week. She is currently using Dry Max and Jimy wraps to her lower extremities. She owns CircAid Velcro compression garments, but is not using. She also has pneumatic mechanical compression pumps, which she claims to be using once daily, though her compliance is in question. The ulcerations on her lower extremities are said to be highly exudative. She is not able to take Lasix as recommended due to urination frequency urinary incontinence. She has an appointment scheduled follow-up with Dr. Kunz for arterial intervention consideration is known that she is previously well known to him for venous intervention. Her daughter relates she is concerned of some dark discoloration of the right back leg. Progress of Wound: Stable - Physical Exam Vital Signs Temp Pulse Resp BP 96.8 F L 112 H 18 111/60 03/19/18 13:09 03/19/18 13:09 03/19/18 13:09 03/19/18 13:09 General: Alert, Oriented x3, Cooperative Extremities: No cyanosis, Capillary Refill Less than 3 Seconds, No Calf Tenderness - Negative Cassie and Benitez sign bilateral, Diminished Peripheral Pulses, Edema - Severe bilateral lower extremities with lymphedema, Tenderness - Pain with manipulation bilateral Skin: Ulcer/ Wound - No purulence, no erythema, streaking, no odor, no maceration, no acute signs of infection. There is a patch of devitalized and liquefied superficial tissue to the posterior right leg upon drip debridement this has resolved and is underlying healthy tissue. There is no exposed deep tissue. The peripheral skin is atrophic, hairless, and hyperpigmented, and indurated to bilateral lower extremities Wound Measurements and Assessment WC - Nurse 1 - General Ulcer Measurement Start: 03/12/18 13:07 Freq: Status: Active Protocol: Activity Type Activity Date Activity User E-Sign Co-Sign Detail Recorded Client Recorded Date Recorded By Document 03/19/18 13:09 DL [id number] 03/19/18 13:25 DL 03/19/18 13:09 Wound Center Nurse 1 [Ulcer Assessment] #8 [id number] CALF cluster -Current Size (cm) - Length 10 -Current Size (cm) - Width 27.5 -Current Size (cm) - Depth 0.2 -Total Square Cm 275.0 -Photo Taken No -Exudate Amt Large (67-100%) -Exudate Type Yellow/Green -Wound Margin Distinct, Outline Attached -Granulation Amt Small (1-33%) -Granulation Quality [place] Red -Necrosis Amt Large (67-100%) -Necrotic Tissue Type Adherent Slough -Structure Exposed N/A -Texture (Vickie-wound Skin Appearance) Excoriation Scarring -Moisture (Vickie-wound Skin Appearance Weeping ) -Color (Vickie-wound Skin Appearance) Erythema Hemosiderin Staining Rubor -Temperature (Vickie-wound Skin No Abnormality Appearance) (Pt Warm) -Tenderness on Palpation (Vickie-wound No Skin Appearance) -Ulcer Cleansing Wound Cleanser -Foul Odor after Cleansing Yes -Anesthetic Used 4% Lidocaine Solution #4 L Lat LE cluster -Exudate Amt Large (67-100%) -Exudate Type Yellow/Green -Wound Margin Distinct, Outline Attached -Granulation Amt Small (1-33%) -Granulation Quality [place] Red -Necrosis Amt Large (67-100%) -Necrotic Tissue Type Adherent Slough -Structure Exposed N/A -Texture (Vickie-wound Skin Appearance) Excoriation Scarring -Moisture (Vickie-wound Skin Appearance Weeping ) -Color (Vickie-wound Skin Appearance) Erythema Hemosiderin Staining -Temperature (Vickie-wound Skin No Abnormality Appearance) (Pt Warm) -Ulcer Cleansing Wound Cleanser -Foul Odor after Cleansing Yes -Anesthetic Used 4% Lidocaine Solution [Edema Assessment] -Right Calf (cm) 56 -Right Ankle (cm) 23 -Left Calf (cm) 47.5 -Left Ankle (cm) 23.5 WC - Nurse 2 - General Ulcer CM Notes Start: 03/12/18 13:07 Freq: Status: Active Protocol: Activity Type Activity Date Activity User E-Sign Co-Sign Detail Recorded Client Recorded Date Recorded By Document 03/19/18 13:40 [id number] 03/19/18 13:42 03/19/18 13:40 Wound Center Nurse 2 [Procedure/Treatment] #8 [id number] CALF cluster -Time 13:41 -Correct Patient Yes -Correct Side, Site, Position Yes -Correct Procedure Yes -Procedure Performed Yes -Type of Procedure Debridement -Clinical Debridement Subcutaneous -Post Debridement Size (cm) - Length 10.1 -Post Debridement Size (cm) - Width 27.6 -Post Debridement Size (cm) - Depth 0.2 -Total Square Cm 278.76 -Wound/Ulcer Outcome Not Healed -Ulcer Cleansing Rinsed/ Irrigated with Saline -Foul Odor after Cleansing No -Bioengineered Tissue No -Topical Lidocaine (%) 4 -Bleeding Controlled with Pressure -Treatment Response Procedure Tolerated Well #4 L Lat LE cluster -Time 13:42 -Correct Patient Yes -Correct Side, Site, Position Yes -Correct Procedure Yes -Procedure Performed Yes -Type of Procedure Debridement -Clinical Debridement Subcutaneous -Post Debridement Size (cm) - Length 8.8 -Post Debridement Size (cm) - Width 8.6 -Post Debridement Size (cm) - Depth 0.2 -Total Square Cm 75.68 -Wound/Ulcer Outcome Not Healed -Ulcer Cleansing Rinsed/ Irrigated with Saline -Foul Odor after Cleansing No -Bioengineered Tissue No -Topical Lidocaine (%) 4 -Bleeding Controlled with Pressure -Treatment Response Procedure Tolerated Well [See Physician Procedure note for Specifics] Pain Scale: 0-10 Numeric [Pain] -Is Patient Pain Free? Yes Musculoskeletal: No Tenderness to Palpation of Joints or Extremities, Muscle Wasting, - - Compartments remain soft bilateral lower extremities Neurological: Sensory exam intact to light touch and pain, - Psych/Mental Status: Normal Affect, Appropriate Debridement Note Post-Debridement Measurements/Treatment WC - Nurse 2 - General Ulcer CM Notes Start: 03/12/18 13:07 Freq: Status: Active Protocol: Activity Type Activity Date Activity User E-Sign Co-Sign Detail Recorded Client Recorded Date Recorded By Document 03/12/18 13:36 [id number] 03/12/18 13:47 TM Document 03/19/18 13:40 TM [id number] 03/19/18 13:42 TM 03/12/18 03/19/18 13:36 13:40 Wound Center Nurse 2 #8 [id number] CALF cluster -Time 13:45 13:41 -Correct Patient Yes Yes -Correct Side, Site, Position Yes Yes -Correct Procedure Yes Yes -Procedure Performed Yes Yes -Type of Procedure Debridement Debridement -Clinical Debridement Subcutaneous Subcutaneous -Post Debridement Size (cm) - Length 22.6 10.1 -Post Debridement Size (cm) - Width 7.6 27.6 -Post Debridement Size (cm) - Depth 0.2 0.2 -Total Square Cm 171.76 278.76 -Wound/Ulcer Outcome Not Healed Not Healed -Ulcer Cleansing Rinsed/ Rinsed/ Irrigated with Irrigated with Saline Saline -Foul Odor after Cleansing No No -Bioengineered Tissue No No -Topical Lidocaine (%) 4 4 -Bleeding Controlled with Pressure Pressure -Treatment Response Procedure Procedure Tolerated Well Tolerated Well #4 L Lat LE cluster -Time 13:45 13:42 -Correct Patient Yes Yes -Correct Side, Site, Position Yes Yes -Correct Procedure Yes Yes -Procedure Performed Yes Yes -Type of Procedure Debridement Debridement -Clinical Debridement Subcutaneous Subcutaneous -Post Debridement Size (cm) - Length 8.8 8.8 -Post Debridement Size (cm) - Width 8.6 8.6 -Post Debridement Size (cm) - Depth 0.2 0.2 -Total Square Cm 75.68 75.68 -Wound/Ulcer Outcome Not Healed Not Healed -Ulcer Cleansing Rinsed/ Rinsed/ Irrigated with Irrigated with Saline Saline -Foul Odor after Cleansing No No -Bioengineered Tissue No No -Topical Lidocaine (%) 4 4 -Bleeding Controlled with Pressure Pressure -Treatment Response Procedure Procedure Tolerated Well Tolerated Well Pain Scale: 0-10 Numeric Is Patient Pain Free? Yes Yes Wound debrided: leg cluster Laterality: Right - g Wound Grade/Stage: grade 1 Type of Debridement: Excisional debridement Anesthesia Used: 4% Lidocaine Solution Depth: in the subcutaneous layer Percentage of wound debrided: 60 Instrument Used: 5mm curette Tissue Removed: fibrous, devitalized subcutaneous, biofilm, slough Severity: Fat Layer Exposed Amount of bleeding with debridement: Mild Bleeding Controlled with: Pressure Patient tolerated procedure well - Additional Wound Wound debrided: leg cluster Laterality: Left Wound Grade/Stage: grade 1 Type of Debridement: Excisional debridement Anesthesia Used: 4% Lidocaine Solution Depth: in the subcutaneous layer Percentage of wound debrided: 60 Instrument Used: 5mm curette Tissue Removed: fibrous, devitalized subcutaneous, biofilm, slough Severity: Fat Layer Exposed Amount of bleeding with debridement: Mild Bleeding Controlled with: Pressure Patient tolerated procedure: Patient tolerated procedure well Assessment/Plan Assessment: This is a 72-year-old female with Parkinson's disease. She suffers from severe swelling, edema, and lymphedema in her lower extremities, associated with ulcerations bilaterally. She also recently had an elevated hemoglobin A1c level consistent with diabetic status. The patient is relatively immobile. She sleeps in a recliner, with her legs in a dependent position. She sits idlely for long periods each day. She is currently setting up a bed area with a bedside commode handrails to facilitate improved elevation throughout the day. Previous cultures have been positive for Proteus and Pseudomonas, the patient has completed a course of oral Cipro and Augmentin with local resolution of infection. She was also seen by infectious disease a couple weeks ago and is now established. She was reassured no infection signs are noted today. The patient has been using Dry Max and Jimy wraps to her lower extremities. She has previously undergone bilateral venous ablation procedures. It is felt that the patient would benefit from lifestyle modification. Enhanced efforts at elevation of the patient's lower extremities is recommended. The patient has been advised to sleep with her legs level with her heart, if not higher. Leg elevation has been recommended even during daytime hours. She has been advised to refrain from prolonged idle sitting. Activity has been encouraged, the patient is somewhat limited due to her Parkinson's disease. It is likely that the patient would benefit from enhanced compression to the lower extremities. A noninvasive lower extremity arterial study was obtained to assess the patient's arterial status, which will determine whether enhanced degrees of compression can be implemented. This was completed. A referral to follow-up with Dr. Kunz has been arranged and is pending. The patient has been advised to implement the use of her pneumatic compression pumps at least 2 or 3 times daily. Optimization of the patient's nutrition has been recommended as well. Plan: I reviewed her case and ongoing treatment plan. Debridement was performed as noted above and in the clinical panel (subcutaneous). 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 It is noted her body habitus is limiting the results. To continue diuresis plan with her primary care physician; she has not been able to start this yet due to ongoing inabilty to get to the rest room multiple times per day. A referral was provided to Dr. Kunz and this is scheduled and pending. Her noninvasive vascular studies demonstrate calcification making this nonconclusive. I recommend she also follows up with Dr. Kunz for this; she is now amendable and a referral will be completed. Today, a multilayer later compression dressing was applied to the lower extremities. She is advised to use CircAid compression in addition at home. A referral to the lymphedema clinic was also provided and potential intervention such as lymphatic massage, other compression pumps and garments were discussed. A compression pump has been received and she was advised to continue this twice daily. To continue absorption dressings. This will be changed by home health a couple times a week and was applied today. She may also want to consider long term facility placement if she is not able to have the appropriate support at home with home health and family help. She is doing well with this so far and demonstrates less periwound moisture and inflammation. We discussed in depth the importance of edema control. To keep legs elevated above heart while resting. To avoid lying directly on the wound while seated or in bed. To avoid idle standing or sitting for prolonged time. To monitor for signs of infection; she was reassured that this is not noted today. To continue take ibuprofen only as needed with caution. She was advised on safe and proper use. Updated culture tissue specimen was reviewed and it is noted she completed an oral course of Augmentin and Cipro. Clinically her infection status remains resolved and she did he will see infectious disease previously which is greatly appreciated. Additional intervention at this time is not recommended. It is noted her hemoglobin A1c is elevated I recommend she follows up with Dr. Horvath her primary care physician to see if diabetes management initiation is appropriate. To RTC (wound center) in 1 week with wound center or call sooner if she has questions or concerns. I answered all of her questions.
[2018-03-26 13:10] VITALS: BP 132/78; PULSE 96; RESP 16; TEMP 36.3
--- NOTE | 2018-03-26 15:03 | PN.PCM_ITS ---
(1) Chronic ulcer of right leg with fat layer exposed Status: Chronic Current Visit: Yes Code(s): L97.912 - 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chronic ulcer of unspecified part of right lower leg with fat layer exposed (2) Ulcer of left lower extremity with fat layer exposed Status: Chronic Current Visit: Yes Code(s): L97.922 - 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chronic ulcer of unspecified part of left lower leg with fat layer exposed (3) Venous ulcer of left leg Status: Chronic Current Visit: Yes Code(s): I83.029 - Varicose veins of left lower extremity with ulcer of unspecified site; L97.929 - 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chronic ulcer of unspecified part of left lower leg with unspecified severity (4) Lymphedema of right lower extremity Status: Chronic Current Visit: Yes Code(s): I89.0 - Lymphedema, not elsewhere classified (5) Type 2 diabetes mellitus with diabetic polyneuropathy Status: Chronic Current Visit: Yes Code(s): E11.42 - Type 2 diabetes mellitus with diabetic polyneuropathy (6) Delayed wound healing Status: Chronic Current Visit: Yes Code(s): T14.8 - Other injury of unspecified body region (7) Debility Status: Acute Current Visit: Yes Code(s): R53.81 - Other malaise (8) Walking difficulty due to ankle and foot Status: Acute Current Visit: Yes Code(s): R26.2 - Difficulty in walking, not elsewhere classified (9) Physical deconditioning Status: Acute Current Visit: Yes Code(s): R53.81 - Other malaise (10) Right leg pain Status: Chronic Current Visit: Yes Code(s): M79.604 - Pain in right leg (11) Left leg pain Status: Chronic Current Visit: Yes Code(s): M79.605 - Pain in left leg (12) Chronic venous insufficiency Status: Chronic Current Visit: Yes Code(s): I87.2 - Venous insufficiency ( chronic) (peripheral) (13) Lymphedema of left leg Status: Chronic Current Visit: Yes Code(s): I89.0 - Lymphedema, not elsewhere classified (14) Cellulitis of leg, right Status: Resolved Current Visit: Yes Code(s): L03.115 - Cellulitis of right lower limb (15) Ulcer of left lower extremity with fat layer exposed Status: Chronic Current Visit: Yes Code(s): L97.922 - 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chronic ulcer of unspecified part of left lower leg with fat layer exposed (16) 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ulcer of right lower extremity with fat layer exposed Status: Chronic Current Visit: Yes Code(s): L97.912 - 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chronic ulcer of unspecified part of right lower leg with fat layer exposed (17) Malnutrition Status: Chronic Current Visit: Yes Code(s): E46 - Unspecified protein- calorie malnutrition Type of Wound Date of Service: 03/26/18 Chief Complaint: Bilateral lower extremity swelling, edema, and lymphedema; chronic venous insufficiency; bilateral calf ulcerations. History of Wound: This is a 72-year-old female with a long-standing history of chronic swelling, edema, and lymphedema in her lower extremities. She has had ulcerations in her lower extremities bilaterally for more than 1 year. She sleeps in a recliner, with her legs in a dependent position. She is working on increasing her bed activities that she can better elevate her legs. She is apprehensive about getting assistive devices. She does need to get a hand rail and set her bedside commode up in this room and she continues to work on these things. She suffers from Parkinson's disease, and has difficulties maneuvering herself into and out of a regular bed. She is not very active, and spends long hours each day in an idle sitting position. As result of her inactivity, she is not recruiting the calf and foot muscle pumps to aid venous return. Her last lower extremity arterial study was approximately 2 years ago, though was relatively normal. She had this study repeated and recently. She has been under the care of Dr. Kolby Kunz, vascular surgeon, and has undergone staged, bilateral lower extremity venous ablation procedures. I recommend she return to Dr. Kunz for follow-up of her recent abnormal vascular studies demonstrate noncompressibility and calcification of the arteries to the lower extremities. She has not been able to make this appointment yet as advised however reports contact has been made. She is currently using Dry Max and Jimy wraps to her lower extremities. She owns CircAid Velcro compression garments, but is not using. She also has pneumatic mechanical compression pumps, which she claims to be using once daily, though her compliance is in question. The ulcerations on her lower extremities are said to be highly exudative. She is not able to take Lasix as recommended due to urination frequency urinary incontinence. She has an appointment scheduled follow-up with Dr. Kunz for arterial intervention consideration is known that she is previously well known to him for venous intervention. She has some increased weeping drainage and odor to her right back leg. She is concerned about this today. She denies loss of appetite. Progress of Wound: Stable left leg. Worsening status right leg - Physical Exam Vital Signs Temp Pulse Resp BP 97.3 F L 96 16 132/78 H 03/26/18 13:10 03/26/18 13:10 03/26/18 13:10 03/26/18 13:10 General: Alert, Oriented x3, Cooperative Extremities: No cyanosis, Capillary Refill Less than 3 Seconds - All toes bilateral, No Calf Tenderness - Negative Cassie and Benitez sign bilateral, Diminished Peripheral Pulses, Edema - Moderate bilateral lower extremities with induration, Tenderness - Pain with wound manipulation right worse than left, - - Compartments of bilateral lower extremities remain soft to palpate Skin: Ulcer/ Wound - No purulence, no erythema, streaking bilateral lower extremities. The right posterior leg has increased inflammation with devitalized liquefied tissue. There is no exposed muscle tendon or bone to the right lower extremity. The peripheral skin is atrophic and hairless. The right posterior leg has had a deterioration status change Wound Measurements and Assessment WC - Nurse 1 - General Ulcer Measurement Start: 03/12/18 13:07 Freq: Status: Active Protocol: Activity Type Activity Date Activity User E-Sign Co-Sign Detail Recorded Client Recorded Date Recorded By Document 03/26/18 13:10 [facility] [id number] 03/26/18 13:19 [facility] 03/26/18 13:10 Wound Center Nurse 1 [Ulcer Assessment] #8 [id number] CALF cluster -Combined with other wound No -Current Size (cm) - Length 11 -Current Size (cm) - Width 25.2 -Current Size (cm) - Depth 0.1 -Total Square Cm 277.2 -Photo Taken No -Epithelialization None Present -Tunneling No -Undermining/Tunneling No -Circular Undermining No -Exudate Amt Large (67-100%) -Exudate Type Serosanguineous -Wound Margin Distinct, Outline Attached -Granulation Amt Medium (34-66%) -Granulation Quality Red -Slough/Fibrin Yes -Necrosis Amt Medium (34-66%) -Necrotic Tissue Type Adherent Slough -Texture (Vickie-wound Skin Appearance) Excoriation Scarring -Moisture (Vickie-wound Skin Appearance Maceration ) Weeping -Color (Vickie-wound Skin Appearance) Erythema Hemosiderin Staining -Temperature (Vickie-wound Skin No Abnormality Appearance) (Pt Warm) -Tenderness on Palpation (Vickie-wound Yes Skin Appearance) -Ulcer Cleansing Wound Cleanser -Foul Odor after Cleansing No -Anesthetic Used 4% Lidocaine Solution #4 L Lat LE cluster -Combined with other wound No -Current Size (cm) - Length 13 -Current Size (cm) - Width 18.5 -Current Size (cm) - Depth 0.1 -Total Square Cm 240.5 -Epithelialization None Present -Tunneling No -Undermining/Tunneling No -Circular Undermining No -Exudate Amt Large (67-100%) -Exudate Type Serosanguineous -Wound Margin Distinct, Outline Attached -Granulation Amt Medium (34-66%) -Granulation Quality Red -Slough/Fibrin Yes -Necrosis Amt Medium (34-66%) -Necrotic Tissue Type Adherent Slough -Texture (Vickie-wound Skin Appearance) Excoriation Scarring -Moisture (Vickie-wound Skin Appearance Maceration ) Weeping -Color (Vickie-wound Skin Appearance) Erythema Hemosiderin Staining -Temperature (Vickie-wound Skin No Abnormality Appearance) (Pt Warm) -Tenderness on Palpation (Vickie-wound Yes Skin Appearance) -Ulcer Cleansing Wound Cleanser -Foul Odor after Cleansing No -Anesthetic Used 4% Lidocaine Solution [Edema Assessment] -Lower Limb Edema Present Yes -Right Calf (cm) 57.3 -Right Ankle (cm) 24.3 -Left Calf (cm) 52.8 -Left Ankle (cm) 24.8 WC - Nurse 2 - General Ulcer CM Notes Start: 03/12/18 13:07 Freq: Status: Active Protocol: Activity Type Activity Date Activity User E-Sign Co-Sign Detail Recorded Client Recorded Date Recorded By Document 03/26/18 13:51 TM [id number] 03/26/18 13:52 TM 03/26/18 13:51 Wound Center Nurse 2 [Procedure/Treatment] #8 [id number] CALF cluster -Time 13:51 -Correct Patient Yes -Correct Side, Site, Position Yes -Correct Procedure Yes -Procedure Performed Yes -Type of Procedure Debridement -Clinical Debridement Subcutaneous -Post Debridement Size (cm) - Length 11.1 -Post Debridement Size (cm) - Width 25.3 -Post Debridement Size (cm) - Depth 0.1 -Total Square Cm 280.83 -Wound/Ulcer Outcome Not Healed -Ulcer Cleansing Rinsed/ Irrigated with Saline -Foul Odor after Cleansing No -Bioengineered Tissue No -Topical Lidocaine (%) 4 -Bleeding Controlled with Pressure -Treatment Response Procedure Tolerated Well #4 L Lat LE cluster -Time 13:52 -Correct Patient Yes -Correct Side, Site, Position Yes -Correct Procedure Yes -Procedure Performed Yes -Type of Procedure Debridement -Clinical Debridement Subcutaneous -Post Debridement Size (cm) - Length 13.1 -Post Debridement Size (cm) - Width 18.6 -Post Debridement Size (cm) - Depth 0.1 -Total Square Cm 243.66 -Wound/Ulcer Outcome Not Healed -Ulcer Cleansing Rinsed/ Irrigated with Saline -Foul Odor after Cleansing No -Bioengineered Tissue No -Topical Lidocaine (%) 4 -Bleeding Controlled with Pressure -Treatment Response Procedure Tolerated Well [See Physician Procedure note for Specifics] Pain Scale: 0-10 Numeric [Pain] -Is Patient Pain Free? Yes Musculoskeletal: No Tenderness to Palpation of Joints or Extremities, Muscle Wasting, - - Walking impairment and wheelchair use noted. Deconditioning and debility is noted Neurological: Sensory exam intact to light touch and pain Psych/Mental Status: Normal Affect, Appropriate Debridement Note Post-Debridement Measurements/Treatment WC - Nurse 2 - General Ulcer CM Notes Start: 03/12/18 13:07 Freq: Status: Active Protocol: Activity Type Activity Date Activity User E-Sign Co-Sign Detail Recorded Client Recorded Date Recorded By Document 03/12/18 13:36 TM [id number] 03/12/18 13:47 TM Document 03/19/18 13:40 TM [id number] 03/19/18 13:42 TM Document 03/26/18 13:51 TM [id number] 03/26/18 13:52 TM 03/12/18 03/19/18 03/26/18 13:36 13:40 13:51 Wound Center Nurse 2 #8 [id number] CALF cluster -Time 13:45 13:41 13:51 -Correct Patient Yes Yes Yes -Correct Side, Site, Position Yes Yes Yes -Correct Procedure Yes Yes Yes -Procedure Performed Yes Yes Yes -Type of Procedure Debridement Debridement Debridement -Clinical Debridement Subcutaneous Subcutaneous Subcutaneous -Post Debridement Size (cm) - Length 22.6 10.1 11.1 -Post Debridement Size (cm) - Width 7.6 27.6 25.3 -Post Debridement Size (cm) - Depth 0.2 0.2 0.1 -Total Square Cm 171.76 278.76 280.83 -Wound/Ulcer Outcome Not Healed Not Healed Not Healed -Ulcer Cleansing Rinsed/ Rinsed/ Rinsed/ Irrigated with Irrigated with Irrigated with Saline Saline Saline -Foul Odor after Cleansing No No No -Bioengineered Tissue No No No -Topical Lidocaine (%) 4 4 4 -Bleeding Controlled with Pressure Pressure Pressure -Treatment Response Procedure Procedure Procedure Tolerated Well Tolerated Well Tolerated Well #4 L Lat LE cluster -Time 13:45 13:42 13:52 -Correct Patient Yes Yes Yes -Correct Side, Site, Position Yes Yes Yes -Correct Procedure Yes Yes Yes -Procedure Performed Yes Yes Yes -Type of Procedure Debridement Debridement Debridement -Clinical Debridement Subcutaneous Subcutaneous Subcutaneous -Post Debridement Size (cm) - Length 8.8 8.8 13.1 -Post Debridement Size (cm) - Width 8.6 8.6 18.6 -Post Debridement Size (cm) - Depth 0.2 0.2 0.1 -Total Square Cm 75.68 75.68 243.66 -Wound/Ulcer Outcome Not Healed Not Healed Not Healed -Ulcer Cleansing Rinsed/ Rinsed/ Rinsed/ Irrigated with Irrigated with Irrigated with Saline Saline Saline -Foul Odor after Cleansing No No No -Bioengineered Tissue No No No -Topical Lidocaine (%) 4 4 4 -Bleeding Controlled with Pressure Pressure Pressure -Treatment Response Procedure Procedure Procedure Tolerated Well Tolerated Well Tolerated Well Pain Scale: 0-10 Numeric Is Patient Pain Free? Yes Yes Yes Wound debrided: leg Laterality: Right Wound Grade/Stage: grade 1 Type of Debridement: Excisional debridement Anesthesia Used: 4% Lidocaine Solution Depth: in the subcutaneous layer Percentage of wound debrided: 50 Instrument Used: #15 blade Tissue Removed: fibrous, devitalized subcutaneous, biofilm, slough Severity: Fat Layer Exposed Amount of bleeding with debridement: Mild Bleeding Controlled with: Pressure Patient tolerated procedure well - Additional Wound Wound debrided: leg Laterality: Left Type of Debridement: Excisional debridement Anesthesia Used: 4% Lidocaine Solution Depth: in the subcutaneous layer Percentage of wound debrided: 50 Instrument Used: #15 blade Tissue Removed: fibrous, devitalized subcutaneous, biofilm, slough Severity: Fat Layer Exposed Amount of bleeding with debridement: Mild Bleeding Controlled with: Pressure Patient tolerated procedure: Patient tolerated procedure well Assessment/Plan Active Problems Ulcer of left lower extremity with fat layer exposed (Chronic) Right leg pain (Chronic) Left leg pain (Chronic) Chronic venous insufficiency (Chronic) Venous ulcer of left leg (Chronic) Lymphedema of left leg (Chronic) Lymphedema of right lower extremity (Chronic) Type 2 diabetes mellitus with diabetic polyneuropathy (Chronic) Debility (Acute) Walking difficulty due to ankle and foot (Acute) Physical deconditioning (Acute) Delayed wound healing (Chronic) Ulcer of left lower extremity with fat layer exposed (Chronic) Chronic ulcer of right leg with fat layer exposed (Chronic) 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ulcer of right lower extremity with fat layer exposed (Chronic) Malnutrition (Chronic) Assessment: This is a 72-year-old female with Parkinson's disease. She suffers from severe swelling, edema, and lymphedema in her lower extremities, associated with ulcerations bilaterally. She also recently had an elevated hemoglobin A1c level consistent with diabetic status. The patient is relatively immobile. She sleeps in a recliner, with her legs in a dependent position. She sits idlely for long periods each day. She is currently setting up a bed area with a bedside commode handrails to facilitate improved elevation throughout the day. Her daughter would like her to proceed with specialized hospital bed and commode to provoke improved compliance with leg elevation and bathroom utilization. Previous cultures have been positive for Proteus and Pseudomonas, the patient has completed a course of oral Cipro and Augmentin with local resolution of infection. She was also seen by infectious disease previously. I am concerned about her deterioration noted to the right leg. A soft tissue culture was obtained and sent for aerobic, anaerobic, and MRSA PCR screening. I recommend she wash her leg daily with Hibiclens during dressing changes. I also recommend she resume Augmentin and ciprofloxacin and a prescription was provided today. The patient has been using Dry Max and Jimy wraps to her lower extremities. She has previously undergone bilateral venous ablation procedures. It is felt that the patient would benefit from lifestyle modification. Enhanced efforts at elevation of the patient's lower extremities is recommended. The patient has been advised to sleep with her legs level with her heart, if not higher. Leg elevation has been recommended even during daytime hours. She has been advised to refrain from prolonged idle sitting. Activity has been encouraged, the patient is somewhat limited due to her Parkinson's disease. It is likely that the patient would benefit from enhanced compression to the lower extremities. A noninvasive lower extremity arterial study was obtained to assess the patient's arterial status, which will determine whether enhanced degrees of compression can be implemented. This was completed. A referral to follow-up with Dr. Kunz has been arranged and she has been scheduled for arterial follow-up evaluation due to her lack of healing and vessel calcification noted on her noninvasive vascular studies. The patient has been advised to implement the use of her pneumatic compression pumps at least 2 or 3 times daily. Optimization of the patient's nutrition has been recommended as well. I provided a prescription for lift hospital bed and commode to aid in her daily activities. Her progressive physical deconditioning debility and walking difficulties are noted and is impairing her ability to remain compliant at home. To return to the wound healing center 1 week or call sooner if she has any questions or concerns. Plan: I reviewed her case and ongoing treatment plan. Debridement was performed as noted above and in the clinical panel (subcutaneous). 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 It is noted her body habitus is limiting the results. To continue diuresis plan with her primary care physician; she has not been able to start this yet due to ongoing inabilty to get to the rest room multiple times per day. A referral was provided to Dr. Kunz and this is scheduled and pending. Her noninvasive vascular studies demonstrate calcification making this nonconclusive. I recommend she also follows up with Dr. Kunz for this; she is now amendable and a referral will be completed. Today, a multilayer later compression dressing was applied to the lower extremities. She is advised to use CircAid compression in addition at home. A referral to the lymphedema clinic was also provided and potential intervention such as lymphatic massage, other compression pumps and garments were discussed. A compression pump has been received and she was advised to continue this twice daily. To continue absorption dressings. This will be changed by home health a couple times a week and was applied today. She may also want to consider group home facility placement if she is not able to have the appropriate support at home with home health and family help. She is doing well with this so far and demonstrates less periwound moisture and inflammation. We discussed in depth the importance of edema control. To keep legs elevated above heart while resting. To avoid lying directly on the wound while seated or in bed. To avoid idle standing or sitting for prolonged time. To monitor for signs of infection; she was reassured that this is not noted today. To continue take ibuprofen only as needed with caution. She was advised on safe and proper use. Updated culture tissue specimen was reviewed and it is noted she completed an oral course of Augmentin and Cipro. Clinically her infection status remains resolved and she did he will see infectious disease previously which is greatly appreciated. Additional intervention at this time is not recommended. It is noted her hemoglobin A1c is elevated I recommend she follows up with Dr. Horvath her primary care physician to see if diabetes management initiation is appropriate. To RTC (wound center) in 1 week with wound center or call sooner if she has questions or concerns. I answered all of her questions.
[2018-04-02 14:13] VITALS: BP 92/54; PULSE 80; RESP 18; TEMP 36.4
--- NOTE | 2018-04-02 15:10 | PCM.WC.PN ---
(1) Chronic ulcer of right leg with fat layer exposed Status: Chronic Current Visit: Yes Code(s): L97.912 - 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chronic ulcer of unspecified part of right lower leg with fat layer exposed (2) Ulcer of left lower extremity with fat layer exposed Status: Chronic Current Visit: Yes Code(s): L97.922 - 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chronic ulcer of unspecified part of left lower leg with fat layer exposed (3) Venous ulcer of left leg Status: Chronic Current Visit: Yes Code(s): I83.029 - Varicose veins of left lower extremity with ulcer of unspecified site; L97.929 - 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chronic ulcer of unspecified part of left lower leg with unspecified severity (4) Lymphedema of right lower extremity Status: Chronic Current Visit: Yes Code(s): I89.0 - Lymphedema, not elsewhere classified (5) Type 2 diabetes mellitus with diabetic polyneuropathy Status: Chronic Current Visit: Yes Code(s): E11.42 - Type 2 diabetes mellitus with diabetic polyneuropathy (6) Delayed wound healing Status: Chronic Current Visit: Yes Code(s): T14.8 - Other injury of unspecified body region (7) Debility Status: Acute Current Visit: Yes Code(s): R53.81 - Other malaise (8) Walking difficulty due to ankle and foot Status: Acute Current Visit: Yes Code(s): R26.2 - Difficulty in walking, not elsewhere classified (9) Physical deconditioning Status: Acute Current Visit: Yes Code(s): R53.81 - Other malaise (10) Right leg pain Status: Chronic Current Visit: Yes Code(s): M79.604 - Pain in right leg (11) Left leg pain Status: Chronic Current Visit: Yes Code(s): M79.605 - Pain in left leg (12) Chronic venous insufficiency Status: Chronic Current Visit: Yes Code(s): I87.2 - Venous insufficiency (chronic) (peripheral) (13) Lymphedema of left leg Status: Chronic Current Visit: Yes Code(s): I89.0 - Lymphedema, not elsewhere classified (14) Cellulitis of leg, right Status: Chronic Current Visit: Yes Code(s): L03.115 - Cellulitis of right lower limb (15) Ulcer of left lower extremity with fat layer exposed Status: Chronic Current Visit: Yes Code(s): L97.922 - 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chronic ulcer of unspecified part of left lower leg with fat layer exposed (16) 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ulcer of right lower extremity with fat layer exposed Status: Chronic Current Visit: Yes Code(s): L97.912 - 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chronic ulcer of unspecified part of right lower leg with fat layer exposed (17) Malnutrition Status: Chronic Current Visit: Yes Code(s): E46 - Unspecified protein-calorie malnutrition Type of Wound Date of Service: 04/02/18 Chief Complaint: Bilateral lower extremity swelling, edema, and lymphedema; chronic venous insufficiency; bilateral calf ulcerations. History of Wound: This is a 72-year-old female with a long-standing history of chronic swelling, edema, and lymphedema in her lower extremities. She sleeps in a recliner, with her legs in a dependent position. She is working on increasing her bed activities that she can better elevate her legs; this will be set up this next week. She suffers from Parkinson's disease, and has difficulties maneuvering herself into and out of a regular bed. She is not very active, and spends long hours each day in an idle sitting position. As result of her inactivity, she is not recruiting the calf and foot muscle pumps to aid venous return. Her last lower extremity arterial study was approximately 2 years ago, though was relatively normal. She had this study repeated and recently. She has been under the care of Dr. Kolby Kunz, vascular surgeon, and has undergone staged, bilateral lower extremity venous ablation procedures. I recommend she return to Dr. Kunz for follow-up of her recent abnormal vascular studies demonstrate noncompressibility and calcification of the arteries to the lower extremities. She has not been able to make this appointment yet as advised however reports contact has been made. She is currently using Dry Max and Jimy wraps to her lower extremities. She owns CircAid Velcro compression garments, but is not using. She also has pneumatic mechanical compression pumps, which she claims to be using once daily, though her compliance is in question. The ulcerations on her lower extremities are said to be highly exudative. She is not able to take Lasix as recommended due to urination frequency urinary incontinence. She has an appointment scheduled follow-up with Dr. Kunz for arterial intervention consideration is known that she is previously well known to him for venous intervention. She has some increased weeping drainage and odor to her right back leg. She is concerned about this today. She denies loss of appetite. She has been cleansing the legs with her home health nurse with Hibiclens and has taken antibiotics as recommended. She denies diarrhea or loss of appetite, fever, chill, nausea, vomiting. Her pain is reduced to her legs as well and she thinks they look much better. Progress of Wound: Quality improvement bilateral - Physical Exam Vital Signs Temp Pulse Resp BP 97.6 F L 80 18 92/54 L 04/02/18 14:13 04/02/18 14:13 04/02/18 14:13 04/02/18 14:13 General: Alert, Oriented x3, Cooperative HEENT: Atraumatic Extremities: No cyanosis, Capillary Refill Less than 3 Seconds, No Calf Tenderness - Negative Cassie and Benitez sign bilateral, Diminished Peripheral Pulses, Edema - Bilateral lower extremities moderate with induration Skin: Ulcer/ Wound - No purulence, odor has resolved, decreased maceration noted, no streaking, no erythema, no necrosis or liquefied tissue noted today. The wound beds to bilateral legs are granular and with significant fibrous tissue buildup. The peripheral skin is atrophic and hairless bilateral Wound Measurements and Assessment WC - Nurse 1 - General Ulcer Measurement Start: 03/12/18 13:07 Freq: Status: Active Protocol: Activity Type Activity Date Activity User E-Sign Co-Sign Detail Recorded Client Recorded Date Recorded By Document 04/02/18 14:13 [id number] 04/02/18 14:29 RB 04/02/18 14:13 Wound Center Nurse 1 [Ulcer Assessment] #8 [id number] CALF cluster -Combined with other wound No -Current Size (cm) - Length 24.5 -Current Size (cm) - Width 11 -Current Size (cm) - Depth 0.1 -Total Square Cm 269.5 -Photo Taken No -Epithelialization Small 1-33% -Tunneling No -Undermining/Tunneling No -Circular Undermining No -Exudate Amt Large (67-100%) -Exudate Type Serosanguineous -Wound Margin Distinct, Outline Attached -Granulation Amt Small (1-33%) -Granulation Quality Red -Slough/Fibrin Yes -Necrosis Amt Large (67-100%) -Necrotic Tissue Type Adherent Slough -Structure Exposed N/A -Texture (Vickie-wound Skin Appearance) Scarring -Moisture (Vickie-wound Skin Appearance Maceration ) Weeping Dry/Scaly -Color (Vickie-wound Skin Appearance) Erythema Hemosiderin Staining Palor -Temperature (Vickie-wound Skin No Abnormality Appearance) (Pt Warm) -Tenderness on Palpation (Vickie-wound Yes Skin Appearance) -Ulcer Cleansing Wound Cleanser -Foul Odor after Cleansing No -Anesthetic Used 4% Lidocaine Solution #4 L Lat LE cluster -Combined with other wound No -Current Size (cm) - Length 14.5 -Current Size (cm) - Width 7.5 -Current Size (cm) - Depth 0.1 -Total Square Cm 108.75 -Photo Taken No -Epithelialization Small 1-33% -Tunneling No -Undermining/Tunneling No -Circular Undermining No -Exudate Amt Large (67-100%) -Exudate Type Serosanguineous -Wound Margin Distinct, Outline Attached -Granulation Amt Small (1-33%) -Granulation Quality Red -Slough/Fibrin Yes -Necrosis Amt Large (67-100%) -Necrotic Tissue Type Adherent Slough -Texture (Vickie-wound Skin Appearance) Scarring -Moisture (Vickie-wound Skin Appearance Maceration ) Weeping Dry/Scaly -Color (Vickie-wound Skin Appearance) Erythema Hemosiderin Staining Palor -Temperature (Vickie-wound Skin No Abnormality Appearance) (Pt Warm) -Tenderness on Palpation (Vickie-wound No Skin Appearance) -Ulcer Cleansing Wound Cleanser -Foul Odor after Cleansing No -Anesthetic Used 4% Lidocaine Solution [Edema Assessment] -Lower Limb Edema Present Yes -Right Calf (cm) 56 -Right Ankle (cm) 25.1 -Left Calf (cm) 54.5 -Left Ankle (cm) 24 WC - Nurse 2 - General Ulcer CM Notes Start: 03/12/18 13:07 Freq: Status: Active Protocol: Activity Type Activity Date Activity User E-Sign Co-Sign Detail Recorded Client Recorded Date Recorded By Document 04/02/18 14:46 [email or web address] [id number] 04/02/18 14:48 PARVIZ 04/02/18 14:46 Wound Center Nurse 2 [Procedure/Treatment] #8 [id number] CALF cluster -Time 14:47 -Correct Patient Yes -Correct Side, Site, Position Yes -Correct Procedure Yes -Procedure Performed Yes -Type of Procedure Debridement -Clinical Debridement Subcutaneous -Post Debridement Size (cm) - Length 25 -Post Debridement Size (cm) - Width 11 -Post Debridement Size (cm) - Depth 0.1 -Total Square Cm 275 -Wound/Ulcer Outcome Not Healed -Ulcer Cleansing Rinsed/ Irrigated with Saline -Foul Odor after Cleansing No -Bioengineered Tissue No -Bleeding Controlled with Pressure -Treatment Response Procedure Tolerated Well #4 L Lat LE cluster -Time 14:47 -Correct Patient Yes -Correct Side, Site, Position Yes -Correct Procedure Yes -Procedure Performed Yes -Type of Procedure Debridement -Clinical Debridement Subcutaneous -Post Debridement Size (cm) - Length 14.6 -Post Debridement Size (cm) - Width 7.6 -Post Debridement Size (cm) - Depth 0.1 -Total Square Cm 110.96 -Wound/Ulcer Outcome Not Healed -Ulcer Cleansing Rinsed/ Irrigated with Saline -Foul Odor after Cleansing No -Bioengineered Tissue No -Bleeding Controlled with Pressure -Treatment Response Procedure Tolerated Well [See Physician Procedure note for Specifics] Pain Scale: 0-10 Numeric [Pain] -Is Patient Pain Free? Yes Musculoskeletal: No Tenderness to Palpation of Joints or Extremities, Muscle Wasting, - - Compartments of lower extremities remain soft Neurological: Sensory exam intact to light touch and pain Psych/Mental Status: Normal Affect, Appropriate Debridement Note Post-Debridement Measurements/Treatment WC - Nurse 2 - General Ulcer CM Notes Start: 03/12/18 13:07 Freq: Status: Active Protocol: Activity Type Activity Date Activity User E-Sign Co-Sign Detail Recorded Client Recorded Date Recorded By Document 03/12/18 13:36 [id number] 03/12/18 13:47 TM Document 03/19/18 13:40 [id number] 03/19/18 13:42 TM Document 03/26/18 13:51 [id number] 03/26/18 13:52 Document 04/02/18 14:46 [id number] 04/02/18 14:48 03/12/18 03/19/18 03/26/18 13:36 13:40 13:51 Wound Center Nurse 2 #8 [id number] CALF cluster -Time 13:45 13:41 13:51 -Correct Patient Yes Yes Yes -Correct Side, Site, Position Yes Yes Yes -Correct Procedure Yes Yes Yes -Procedure Performed Yes Yes Yes -Type of Procedure Debridement Debridement Debridement -Clinical Debridement Subcutaneous Subcutaneous Subcutaneous -Post Debridement Size (cm) - Length 22.6 10.1 11.1 -Post Debridement Size (cm) - Width 7.6 27.6 25.3 -Post Debridement Size (cm) - Depth 0.2 0.2 0.1 -Total Square Cm 171.76 278.76 280.83 -Wound/Ulcer Outcome Not Healed Not Healed Not Healed -Ulcer Cleansing Rinsed/ Rinsed/ Rinsed/ Irrigated with Irrigated with Irrigated with Saline Saline Saline -Foul Odor after Cleansing No No No -Bioengineered Tissue No No No -Topical Lidocaine (%) 4 4 4 -Bleeding Controlled with Pressure Pressure Pressure -Treatment Response Procedure Procedure Procedure Tolerated Well Tolerated Well Tolerated Well #4 L Lat LE cluster -Time 13:45 13:42 13:52 -Correct Patient Yes Yes Yes -Correct Side, Site, Position Yes Yes Yes -Correct Procedure Yes Yes Yes -Procedure Performed Yes Yes Yes -Type of Procedure Debridement Debridement Debridement -Clinical Debridement Subcutaneous Subcutaneous Subcutaneous -Post Debridement Size (cm) - Length 8.8 8.8 13.1 -Post Debridement Size (cm) - Width 8.6 8.6 18.6 -Post Debridement Size (cm) - Depth 0.2 0.2 0.1 -Total Square Cm 75.68 75.68 243.66 -Wound/Ulcer Outcome Not Healed Not Healed Not Healed -Ulcer Cleansing Rinsed/ Rinsed/ Rinsed/ Irrigated with Irrigated with Irrigated with Saline Saline Saline -Foul Odor after Cleansing No No No -Bioengineered Tissue No No No -Topical Lidocaine (%) 4 4 4 -Bleeding Controlled with Pressure Pressure Pressure -Treatment Response Procedure Procedure Procedure Tolerated Well Tolerated Well Tolerated Well Pain Scale: 0-10 Numeric Is Patient Pain Free? Yes Yes Yes 04/02/18 14:46 Wound Center Nurse 2 #8 [id number] CALF cluster -Time 14:47 -Correct Patient Yes -Correct Side, Site, Position Yes -Correct Procedure Yes -Procedure Performed Yes -Type of Procedure Debridement -Clinical Debridement Subcutaneous -Post Debridement Size (cm) - Length 25 -Post Debridement Size (cm) - Width 11 -Post Debridement Size (cm) - Depth 0.1 -Total Square Cm 275 -Wound/Ulcer Outcome Not Healed -Ulcer Cleansing Rinsed/ Irrigated with Saline -Foul Odor after Cleansing No -Bioengineered Tissue No -Topical Lidocaine (%) -Bleeding Controlled with Pressure -Treatment Response Procedure Tolerated Well #4 L Lat LE cluster -Time 14:47 -Correct Patient Yes -Correct Side, Site, Position Yes -Correct Procedure Yes -Procedure Performed Yes -Type of Procedure Debridement -Clinical Debridement Subcutaneous -Post Debridement Size (cm) - Length 14.6 -Post Debridement Size (cm) - Width 7.6 -Post Debridement Size (cm) - Depth 0.1 -Total Square Cm 110.96 -Wound/Ulcer Outcome Not Healed -Ulcer Cleansing Rinsed/ Irrigated with Saline -Foul Odor after Cleansing No -Bioengineered Tissue No -Topical Lidocaine (%) -Bleeding Controlled with Pressure -Treatment Response Procedure Tolerated Well Pain Scale: 0-10 Numeric Is Patient Pain Free? Yes Wound debrided: leg cluster Laterality: Right Wound Grade/Stage: grade 1 Type of Debridement: Excisional debridement Anesthesia Used: 4% Lidocaine Solution Depth: in the subcutaneous layer Percentage of wound debrided: 50 Instrument Used: 5mm curette Tissue Removed: fibrous, devitalized subcutaneous, biofilm, slough Severity: Fat Layer Exposed Amount of bleeding with debridement: Mild Bleeding Controlled with: Pressure Patient tolerated procedure well - Additional Wound Wound debrided: leg cluster Laterality: Left - g Wound Grade/Stage: grade 1 Type of Debridement: Excisional debridement Anesthesia Used: 4% Lidocaine Solution Depth: in the subcutaneous layer Percentage of wound debrided: 50 Instrument Used: 5mm curette Tissue Removed: fibrous, devitalized subcutaneous, biofilm, slough Severity: Fat Layer Exposed Amount of bleeding with debridement: Mild Bleeding Controlled with: Pressure Patient tolerated procedure: Patient tolerated procedure well Assessment/Plan Active Problems Cellulitis of right leg (Acute) Ulcer of left lower extremity with fat layer exposed (Chronic) Right leg pain (Chronic) Left leg pain (Chronic) Chronic venous insufficiency (Chronic) Venous ulcer of left leg (Chronic) Lymphedema of left leg (Chronic) Lymphedema of right lower extremity (Chronic) Cellulitis of leg, right (Chronic) Type 2 diabetes mellitus with diabetic polyneuropathy (Chronic) Debility (Acute) Walking difficulty due to ankle and foot (Acute) Physical deconditioning (Acute) Delayed wound healing (Chronic) Ulcer of left lower extremity with fat layer exposed (Chronic) Chronic ulcer of right leg with fat layer exposed (Chronic) 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ulcer of right lower extremity with fat layer exposed (Chronic) Malnutrition (Chronic) Assessment: This is a 72-year-old female with Parkinson's disease. She suffers from severe swelling, edema, and lymphedema in her lower extremities, associated with ulcerations bilaterally. She also recently had an elevated hemoglobin A1c level consistent with diabetic status. The patient is relatively immobile. She sleeps in a recliner, with her legs in a dependent position. She sits idlely for long periods each day. She is currently setting up a bed area with a bedside commode handrails to facilitate improved elevation throughout the day. Her daughter would like her to proceed with specialized hospital bed and commode to provoke improved compliance with leg elevation and bathroom utilization. Previous cultures have been positive for Proteus and Pseudomonas, the patient has completed a course of oral Cipro and Augmentin with local resolution of infection. She was also seen by infectious disease previously. I am concerned about her deterioration noted to the right leg. A soft tissue culture was obtained and sent for aerobic, anaerobic, and MRSA PCR screening. I recommend she wash her leg daily with Hibiclens during dressing changes. I also recommend she resume Augmentin and ciprofloxacin and a prescription was provided today. The patient has been using Dry Max and Jimy wraps to her lower extremities. She has previously undergone bilateral venous ablation procedures. It is felt that the patient would benefit from lifestyle modification. Enhanced efforts at elevation of the patient's lower extremities is recommended. The patient has been advised to sleep with her legs level with her heart, if not higher. Leg elevation has been recommended even during daytime hours. She has been advised to refrain from prolonged idle sitting. Activity has been encouraged, the patient is somewhat limited due to her Parkinson's disease. It is likely that the patient would benefit from enhanced compression to the lower extremities. A noninvasive lower extremity arterial study was obtained to assess the patient's arterial status, which will determine whether enhanced degrees of compression can be implemented. This was completed. A referral to follow-up with Dr. Kunz has been arranged and she has been scheduled for arterial follow-up evaluation due to her lack of healing and vessel calcification noted on her noninvasive vascular studies. The patient has been advised to implement the use of her pneumatic compression pumps at least 2 or 3 times daily. Optimization of the patient's nutrition has been recommended as well. I provided a prescription for lift hospital bed and commode to aid in her daily activities. Her progressive physical deconditioning debility and walking difficulties are noted and is impairing her ability to remain compliant at home. To return to the wound healing center 1 week or call sooner if she has any questions or concerns. Plan: I reviewed her case and ongoing treatment plan. Debridement was performed as noted above and in the clinical panel (subcutaneous). 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 It is noted her body habitus is limiting the results. To continue diuresis plan with her primary care physician; she has not been able to start this yet due to ongoing inabilty to get to the rest room multiple times per day. A referral was provided to Dr. Kunz and this is scheduled and pending. Her noninvasive vascular studies demonstrate calcification making this nonconclusive. I recommend she also follows up with Dr. Kunz for this; she is now amendable and a referral will be completed. Today, a multilayer later compression dressing was applied to the lower extremities. She is advised to use CircAid compression in addition at home. A referral to the lymphedema clinic was also provided and potential intervention such as lymphatic massage, other compression pumps and garments were discussed. A compression pump has been received and she was advised to continue this twice daily. To continue absorption dressings. This will be changed by home health a couple times a week and was applied today. She may also want to consider prison facility placement if she is not able to have the appropriate support at home with home health and family help. She is doing well with this so far and demonstrates less periwound moisture and inflammation. We discussed in depth the importance of edema control. To keep legs elevated above heart while resting. To avoid lying directly on the wound while seated or in bed. To avoid idle standing or sitting for prolonged time. To monitor for signs of infection; she was reassured that this is not noted today. To continue take ibuprofen only as needed with caution. She was advised on safe and proper use. Updated culture tissue specimen was reviewed and it is noted she completed an oral course of Augmentin and Cipro. This was recultured last week and she demonstrated multi organism growth including Enterobacter cloaca complex, Proteus mirabilis, MRSA, Streptococcus agalactiae, Burkholderia cepacia. I called and discussed the case with Dr. Rodrigez with infectious disease and further recommendations are pending. I also recommend a reconsultation with him next week and this will be set up. It is noted her hemoglobin A1c is elevated I recommend she follows up with Dr. Horavth her primary care physician to see if diabetes management initiation is appropriate. To RTC (wound center) in 1 week with wound center or call sooner if she has questions or concerns. I answered all of her questions.
--- NOTE | 2018-04-02 15:14 | PN.PCM_ITS ---
(1) Chronic ulcer of right leg with fat layer exposed Status: Chronic Current Visit: Yes Code(s): L97.912 - 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chronic ulcer of unspecified part of right lower leg with fat layer exposed (2) Ulcer of left lower extremity with fat layer exposed Status: Chronic Current Visit: Yes Code(s): L97.922 - 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chronic ulcer of unspecified part of left lower leg with fat layer exposed (3) Venous ulcer of left leg Status: Chronic Current Visit: Yes Code(s): I83.029 - Varicose veins of left lower extremity with ulcer of unspecified site; L97.929 - 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chronic ulcer of unspecified part of left lower leg with unspecified severity (4) Lymphedema of right lower extremity Status: Chronic Current Visit: Yes Code(s): I89.0 - Lymphedema, not elsewhere classified (5) Type 2 diabetes mellitus with diabetic polyneuropathy Status: Chronic Current Visit: Yes Code(s): E11.42 - Type 2 diabetes mellitus with diabetic polyneuropathy (6) Delayed wound healing Status: Chronic Current Visit: Yes Code(s): T14.8 - Other injury of unspecified body region (7) Debility Status: Acute Current Visit: Yes Code(s): R53.81 - Other malaise (8) Walking difficulty due to ankle and foot Status: Acute Current Visit: Yes Code(s): R26.2 - Difficulty in walking, not elsewhere classified (9) Physical deconditioning Status: Acute Current Visit: Yes Code(s): R53.81 - Other malaise (10) Right leg pain Status: Chronic Current Visit: Yes Code(s): M79.604 - Pain in right leg (11) Left leg pain Status: Chronic Current Visit: Yes Code(s): M79.605 - Pain in left leg (12) Chronic venous insufficiency Status: Chronic Current Visit: Yes Code(s): I87.2 - Venous insufficiency ( chronic) (peripheral) (13) Lymphedema of left leg Status: Chronic Current Visit: Yes Code(s): I89.0 - Lymphedema, not elsewhere classified (14) Cellulitis of leg, right Status: Chronic Current Visit: Yes Code(s): L03.115 - Cellulitis of right lower limb (15) Ulcer of left lower extremity with fat layer exposed Status: Chronic Current Visit: Yes Code(s): L97.922 - 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chronic ulcer of unspecified part of left lower leg with fat layer exposed (16) 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ulcer of right lower extremity with fat layer exposed Status: Chronic Current Visit: Yes Code(s): L97.912 - 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chronic ulcer of unspecified part of right lower leg with fat layer exposed (17) Malnutrition Status: Chronic Current Visit: Yes Code(s): E46 - Unspecified protein- calorie malnutrition Type of Wound Date of Service: 04/02/18 Chief Complaint: Bilateral lower extremity swelling, edema, and lymphedema; chronic venous insufficiency; bilateral calf ulcerations. History of Wound: This is a 72-year-old female with a long-standing history of chronic swelling, edema, and lymphedema in her lower extremities. She sleeps in a recliner, with her legs in a dependent position. She is working on increasing her bed activities that she can better elevate her legs; this will be set up this next week. She suffers from Parkinson's disease, and has difficulties maneuvering herself into and out of a regular bed. She is not very active, and spends long hours each day in an idle sitting position. As result of her inactivity, she is not recruiting the calf and foot muscle pumps to aid venous return. Her last lower extremity arterial study was approximately 2 years ago, though was relatively normal. She had this study repeated and recently. She has been under the care of Dr. Kolby Kunz, vascular surgeon, and has undergone staged, bilateral lower extremity venous ablation procedures. I recommend she return to Dr. Kunz for follow-up of her recent abnormal vascular studies demonstrate noncompressibility and calcification of the arteries to the lower extremities. She has not been able to make this appointment yet as advised however reports contact has been made. She is currently using Dry Max and Jimy wraps to her lower extremities. She owns CircAid Velcro compression garments, but is not using. She also has pneumatic mechanical compression pumps, which she claims to be using once daily , though her compliance is in question. The ulcerations on her lower extremities are said to be highly exudative. She is not able to take Lasix as recommended due to urination frequency urinary incontinence. She has an appointment scheduled follow-up with Dr. Kunz for arterial intervention consideration is known that she is previously well known to him for venous intervention. She has some increased weeping drainage and odor to her right back leg. She is concerned about this today. She denies loss of appetite. She has been cleansing the legs with her home health nurse with Hibiclens and has taken antibiotics as recommended. She denies diarrhea or loss of appetite, fever, chill, nausea, vomiting. Her pain is reduced to her legs as well and she thinks they look much better. Progress of Wound: Quality improvement bilateral - Physical Exam Vital Signs Temp Pulse Resp BP 97.6 F L 80 18 92/54 L 04/02/18 14:13 04/02/18 14:13 04/02/18 14:13 04/02/18 14:13 General: Alert, Oriented x3, Cooperative HEENT: Atraumatic Extremities: No cyanosis, Capillary Refill Less than 3 Seconds, No Calf Tenderness - Negative Cassie and Benitez sign bilateral, Diminished Peripheral Pulses, Edema - Bilateral lower extremities moderate with induration Skin: Ulcer/ Wound - No purulence, odor has resolved, decreased maceration noted , no streaking, no erythema, no necrosis or liquefied tissue noted today. The wound beds to bilateral legs are granular and with significant fibrous tissue buildup. The peripheral skin is atrophic and hairless bilateral Wound Measurements and Assessment WC - Nurse 1 - General Ulcer Measurement Start: 03/12/18 13:07 Freq: Status: Active Protocol: Activity Type Activity Date Activity User E-Sign Co-Sign Detail Recorded Client Recorded Date Recorded By Document 04/02/18 14:13 [id number] 04/02/18 14:29 RB 04/02/18 14:13 Wound Center Nurse 1 [Ulcer Assessment] #8 [id number] CALF cluster -Combined with other wound No -Current Size (cm) - Length 24.5 -Current Size (cm) - Width 11 -Current Size (cm) - Depth 0.1 -Total Square Cm 269.5 -Photo Taken No -Epithelialization Small 1-33% -Tunneling No -Undermining/Tunneling No -Circular Undermining No -Exudate Amt Large (67-100%) -Exudate Type Serosanguineous -Wound Margin Distinct, Outline Attached -Granulation Amt Small (1-33%) -Granulation Quality Red -Slough/Fibrin Yes -Necrosis Amt Large (67-100%) -Necrotic Tissue Type Adherent Slough -Structure Exposed N/A -Texture (Vickie-wound Skin Appearance) Scarring -Moisture (Vickie-wound Skin Appearance Maceration ) Weeping Dry/Scaly -Color (Vickie-wound Skin Appearance) Erythema Hemosiderin Staining Palor -Temperature (Vickie-wound Skin No Abnormality Appearance) (Pt Warm) -Tenderness on Palpation (Vickie-wound Yes Skin Appearance) -Ulcer Cleansing Wound Cleanser -Foul Odor after Cleansing No -Anesthetic Used 4% Lidocaine Solution #4 L Lat LE cluster -Combined with other wound No -Current Size (cm) - Length 14.5 -Current Size (cm) - Width 7.5 -Current Size (cm) - Depth 0.1 -Total Square Cm 108.75 -Photo Taken No -Epithelialization Small 1-33% -Tunneling No -Undermining/Tunneling No -Circular Undermining No -Exudate Amt Large (67-100%) -Exudate Type Serosanguineous -Wound Margin Distinct, Outline Attached -Granulation Amt Small (1-33%) -Granulation Quality Red -Slough/Fibrin Yes -Necrosis Amt Large (67-100%) -Necrotic Tissue Type Adherent Slough -Texture (Vickie-wound Skin Appearance) Scarring -Moisture (Vickie-wound Skin Appearance Maceration ) Weeping Dry/Scaly -Color (Vickie-wound Skin Appearance) Erythema Hemosiderin Staining Palor -Temperature (Vickie-wound Skin No Abnormality Appearance) (Pt Warm) -Tenderness on Palpation (Vickie-wound No Skin Appearance) -Ulcer Cleansing Wound Cleanser -Foul Odor after Cleansing No -Anesthetic Used 4% Lidocaine Solution [Edema Assessment] -Lower Limb Edema Present Yes -Right Calf (cm) 56 -Right Ankle (cm) 25.1 -Left Calf (cm) 54.5 -Left Ankle (cm) 24 WC - Nurse 2 - General Ulcer CM Notes Start: 03/12/18 13:07 Freq: Status: Active Protocol: Activity Type Activity Date Activity User E-Sign Co-Sign Detail Recorded Client Recorded Date Recorded By Document 04/02/18 14:46 PARVIZ [id number] 04/02/18 14:48 PARVIZ 04/02/18 14:46 Wound Center Nurse 2 [Procedure/Treatment] #8 [id number] CALF cluster -Time 14:47 -Correct Patient Yes -Correct Side, Site, Position Yes -Correct Procedure Yes -Procedure Performed Yes -Type of Procedure Debridement -Clinical Debridement Subcutaneous -Post Debridement Size (cm) - Length 25 -Post Debridement Size (cm) - Width 11 -Post Debridement Size (cm) - Depth 0.1 -Total Square Cm 275 -Wound/Ulcer Outcome Not Healed -Ulcer Cleansing Rinsed/ Irrigated with Saline -Foul Odor after Cleansing No -Bioengineered Tissue No -Bleeding Controlled with Pressure -Treatment Response Procedure Tolerated Well #4 L Lat LE cluster -Time 14:47 -Correct Patient Yes -Correct Side, Site, Position Yes -Correct Procedure Yes -Procedure Performed Yes -Type of Procedure Debridement -Clinical Debridement Subcutaneous -Post Debridement Size (cm) - Length 14.6 -Post Debridement Size (cm) - Width 7.6 -Post Debridement Size (cm) - Depth 0.1 -Total Square Cm 110.96 -Wound/Ulcer Outcome Not Healed -Ulcer Cleansing Rinsed/ Irrigated with Saline -Foul Odor after Cleansing No -Bioengineered Tissue No -Bleeding Controlled with Pressure -Treatment Response Procedure Tolerated Well [See Physician Procedure note for Specifics] Pain Scale: 0-10 Numeric [Pain] -Is Patient Pain Free? Yes Musculoskeletal: No Tenderness to Palpation of Joints or Extremities, Muscle Wasting, - - Compartments of lower extremities remain soft Neurological: Sensory exam intact to light touch and pain Psych/Mental Status: Normal Affect, Appropriate Debridement Note Post-Debridement Measurements/Treatment WC - Nurse 2 - General Ulcer CM Notes Start: 03/12/18 13:07 Freq: Status: Active Protocol: Activity Type Activity Date Activity User E-Sign Co-Sign Detail Recorded Client Recorded Date Recorded By Document 03/12/18 13:36 [id number] 03/12/18 13:47 TM Document 03/19/18 13:40 [id number] 03/19/18 13:42 TM Document 03/26/18 13:51 [id number] 03/26/18 13:52 Document 04/02/18 14:46 [id number] 04/02/18 14:48 03/12/18 03/19/18 03/26/18 13:36 13:40 13:51 Wound Center Nurse 2 #8 [id number] CALF cluster -Time 13:45 13:41 13:51 -Correct Patient Yes Yes Yes -Correct Side, Site, Position Yes Yes Yes -Correct Procedure Yes Yes Yes -Procedure Performed Yes Yes Yes -Type of Procedure Debridement Debridement Debridement -Clinical Debridement Subcutaneous Subcutaneous Subcutaneous -Post Debridement Size (cm) - Length 22.6 10.1 11.1 -Post Debridement Size (cm) - Width 7.6 27.6 25.3 -Post Debridement Size (cm) - Depth 0.2 0.2 0.1 -Total Square Cm 171.76 278.76 280.83 -Wound/Ulcer Outcome Not Healed Not Healed Not Healed -Ulcer Cleansing Rinsed/ Rinsed/ Rinsed/ Irrigated with Irrigated with Irrigated with Saline Saline Saline -Foul Odor after Cleansing No No No -Bioengineered Tissue No No No -Topical Lidocaine (%) 4 4 4 -Bleeding Controlled with Pressure Pressure Pressure -Treatment Response Procedure Procedure Procedure Tolerated Well Tolerated Well Tolerated Well #4 L Lat LE cluster -Time 13:45 13:42 13:52 -Correct Patient Yes Yes Yes -Correct Side, Site, Position Yes Yes Yes -Correct Procedure Yes Yes Yes -Procedure Performed Yes Yes Yes -Type of Procedure Debridement Debridement Debridement -Clinical Debridement Subcutaneous Subcutaneous Subcutaneous -Post Debridement Size (cm) - Length 8.8 8.8 13.1 -Post Debridement Size (cm) - Width 8.6 8.6 18.6 -Post Debridement Size (cm) - Depth 0.2 0.2 0.1 -Total Square Cm 75.68 75.68 243.66 -Wound/Ulcer Outcome Not Healed Not Healed Not Healed -Ulcer Cleansing Rinsed/ Rinsed/ Rinsed/ Irrigated with Irrigated with Irrigated with Saline Saline Saline -Foul Odor after Cleansing No No No -Bioengineered Tissue No No No -Topical Lidocaine (%) 4 4 4 -Bleeding Controlled with Pressure Pressure Pressure -Treatment Response Procedure Procedure Procedure Tolerated Well Tolerated Well Tolerated Well Pain Scale: 0-10 Numeric Is Patient Pain Free? Yes Yes Yes 04/02/18 14:46 Wound Center Nurse 2 #8 [id number] CALF cluster -Time 14:47 -Correct Patient Yes -Correct Side, Site, Position Yes -Correct Procedure Yes -Procedure Performed Yes -Type of Procedure Debridement -Clinical Debridement Subcutaneous -Post Debridement Size (cm) - Length 25 -Post Debridement Size (cm) - Width 11 -Post Debridement Size (cm) - Depth 0.1 -Total Square Cm 275 -Wound/Ulcer Outcome Not Healed -Ulcer Cleansing Rinsed/ Irrigated with Saline -Foul Odor after Cleansing No -Bioengineered Tissue No -Topical Lidocaine (%) -Bleeding Controlled with Pressure -Treatment Response Procedure Tolerated Well #4 L Lat LE cluster -Time 14:47 -Correct Patient Yes -Correct Side, Site, Position Yes -Correct Procedure Yes -Procedure Performed Yes -Type of Procedure Debridement -Clinical Debridement Subcutaneous -Post Debridement Size (cm) - Length 14.6 -Post Debridement Size (cm) - Width 7.6 -Post Debridement Size (cm) - Depth 0.1 -Total Square Cm 110.96 -Wound/Ulcer Outcome Not Healed -Ulcer Cleansing Rinsed/ Irrigated with Saline -Foul Odor after Cleansing No -Bioengineered Tissue No -Topical Lidocaine (%) -Bleeding Controlled with Pressure -Treatment Response Procedure Tolerated Well Pain Scale: 0-10 Numeric Is Patient Pain Free? Yes Wound debrided: leg cluster Laterality: Right Wound Grade/Stage: grade 1 Type of Debridement: Excisional debridement Anesthesia Used: 4% Lidocaine Solution Depth: in the subcutaneous layer Percentage of wound debrided: 50 Instrument Used: 5mm curette Tissue Removed: fibrous, devitalized subcutaneous, biofilm, slough Severity: Fat Layer Exposed Amount of bleeding with debridement: Mild Bleeding Controlled with: Pressure Patient tolerated procedure well - Additional Wound Wound debrided: leg cluster Laterality: Left - g Wound Grade/Stage: grade 1 Type of Debridement: Excisional debridement Anesthesia Used: 4% Lidocaine Solution Depth: in the subcutaneous layer Percentage of wound debrided: 50 Instrument Used: 5mm curette Tissue Removed: fibrous, devitalized subcutaneous, biofilm, slough Severity: Fat Layer Exposed Amount of bleeding with debridement: Mild Bleeding Controlled with: Pressure Patient tolerated procedure: Patient tolerated procedure well Assessment/Plan Active Problems Cellulitis of right leg (Acute) Ulcer of left lower extremity with fat layer exposed (Chronic) Right leg pain (Chronic) Left leg pain (Chronic) Chronic venous insufficiency (Chronic) Venous ulcer of left leg (Chronic) Lymphedema of left leg (Chronic) Lymphedema of right lower extremity (Chronic) Cellulitis of leg, right (Chronic) Type 2 diabetes mellitus with diabetic polyneuropathy (Chronic) Debility (Acute) Walking difficulty due to ankle and foot (Acute) Physical deconditioning (Acute) Delayed wound healing (Chronic) Ulcer of left lower extremity with fat layer exposed (Chronic) Chronic ulcer of right leg with fat layer exposed (Chronic) 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ulcer of right lower extremity with fat layer exposed (Chronic) Malnutrition (Chronic) Assessment: This is a 72-year-old female with Parkinson's disease. She suffers from severe swelling, edema, and lymphedema in her lower extremities, associated with ulcerations bilaterally. She also recently had an elevated hemoglobin A1c level consistent with diabetic status. The patient is relatively immobile. She sleeps in a recliner, with her legs in a dependent position. She sits idlely for long periods each day. She is currently setting up a bed area with a bedside commode handrails to facilitate improved elevation throughout the day. Her daughter would like her to proceed with specialized hospital bed and commode to provoke improved compliance with leg elevation and bathroom utilization. Previous cultures have been positive for Proteus and Pseudomonas, the patient has completed a course of oral Cipro and Augmentin with local resolution of infection. She was also seen by infectious disease previously. I am concerned about her deterioration noted to the right leg. A soft tissue culture was obtained and sent for aerobic, anaerobic, and MRSA PCR screening. I recommend she wash her leg daily with Hibiclens during dressing changes. I also recommend she resume Augmentin and ciprofloxacin and a prescription was provided today. The patient has been using Dry Max and Jimy wraps to her lower extremities. She has previously undergone bilateral venous ablation procedures. It is felt that the patient would benefit from lifestyle modification. Enhanced efforts at elevation of the patient's lower extremities is recommended. The patient has been advised to sleep with her legs level with her heart, if not higher. Leg elevation has been recommended even during daytime hours. She has been advised to refrain from prolonged idle sitting. Activity has been encouraged, the patient is somewhat limited due to her Parkinson's disease. It is likely that the patient would benefit from enhanced compression to the lower extremities. A noninvasive lower extremity arterial study was obtained to assess the patient's arterial status, which will determine whether enhanced degrees of compression can be implemented. This was completed. A referral to follow-up with Dr. Kunz has been arranged and she has been scheduled for arterial follow-up evaluation due to her lack of healing and vessel calcification noted on her noninvasive vascular studies. The patient has been advised to implement the use of her pneumatic compression pumps at least 2 or 3 times daily. Optimization of the patient's nutrition has been recommended as well. I provided a prescription for lift hospital bed and commode to aid in her daily activities. Her progressive physical deconditioning debility and walking difficulties are noted and is impairing her ability to remain compliant at home. To return to the wound healing center 1 week or call sooner if she has any questions or concerns. Plan: I reviewed her case and ongoing treatment plan. Debridement was performed as noted above and in the clinical panel (subcutaneous). 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 It is noted her body habitus is limiting the results. To continue diuresis plan with her primary care physician; she has not been able to start this yet due to ongoing inabilty to get to the rest room multiple times per day. A referral was provided to Dr. Kunz and this is scheduled and pending. Her noninvasive vascular studies demonstrate calcification making this nonconclusive. I recommend she also follows up with Dr. Kunz for this; she is now amendable and a referral will be completed. Today, a multilayer later compression dressing was applied to the lower extremities. She is advised to use CircAid compression in addition at home. A referral to the lymphedema clinic was also provided and potential intervention such as lymphatic massage, other compression pumps and garments were discussed. A compression pump has been received and she was advised to continue this twice daily. To continue absorption dressings. This will be changed by home health a couple times a week and was applied today. She may also want to consider halfway facility placement if she is not able to have the appropriate support at home with home health and family help. She is doing well with this so far and demonstrates less periwound moisture and inflammation. We discussed in depth the importance of edema control. To keep legs elevated above heart while resting. To avoid lying directly on the wound while seated or in bed. To avoid idle standing or sitting for prolonged time. To monitor for signs of infection; she was reassured that this is not noted today. To continue take ibuprofen only as needed with caution. She was advised on safe and proper use. Updated culture tissue specimen was reviewed and it is noted she completed an oral course of Augmentin and Cipro. This was recultured last week and she demonstrated multi organism growth including Enterobacter cloaca complex, Proteus mirabilis, MRSA, Streptococcus agalactiae, Burkholderia cepacia. I called and discussed the case with Dr. Rodrigez with infectious disease and further recommendations are pending. I also recommend a reconsultation with him next week and this will be set up. It is noted her hemoglobin A1c is elevated I recommend she follows up with Dr. Horvath her primary care physician to see if diabetes management initiation is appropriate. To RTC (wound center) in 1 week with wound center or call sooner if she has questions or concerns. I answered all of her questions.
[2018-04-09 14:53] VITALS: BP 120/76; PULSE 68; RESP 18; TEMP 37.1
--- NOTE | 2018-04-09 15:47 | PCM.WC.PN ---
(1) Chronic ulcer of right leg with fat layer exposed Status: Chronic Code(s): L97.912 - 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chronic ulcer of unspecified part of right lower leg with fat layer exposed (2) Ulcer of left lower extremity with fat layer exposed Status: Chronic Code(s): L97.922 - 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chronic ulcer of unspecified part of left lower leg with fat layer exposed (3) Venous ulcer of left leg Status: Chronic Code(s): I83.029 - Varicose veins of left lower extremity with ulcer of unspecified site; L97.929 - 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chronic ulcer of unspecified part of left lower leg with unspecified severity (4) Lymphedema of right lower extremity Status: Chronic Code(s): I89.0 - Lymphedema, not elsewhere classified (5) Type 2 diabetes mellitus with diabetic polyneuropathy Status: Chronic Code(s): E11.42 - Type 2 diabetes mellitus with diabetic polyneuropathy (6) Delayed wound healing Status: Chronic Code(s): T14.8 - Other injury of unspecified body region (7) Debility Status: Acute Code(s): R53.81 - Other malaise (8) Walking difficulty due to ankle and foot Status: Acute Code(s): R26.2 - Difficulty in walking, not elsewhere classified (9) Physical deconditioning Status: Acute Code(s): R53.81 - Other malaise (10) Right leg pain Status: Chronic Code(s): M79.604 - Pain in right leg (11) Left leg pain Status: Chronic Code(s): M79.605 - Pain in left leg (12) Chronic venous insufficiency Status: Chronic Code(s): I87.2 - Venous insufficiency (chronic) (peripheral) (13) Lymphedema of left leg Status: Chronic Code(s): I89.0 - Lymphedema, not elsewhere classified (14) Cellulitis of leg, right Status: Chronic Code(s): L03.115 - Cellulitis of right lower limb (15) Ulcer of left lower extremity with fat layer exposed Status: Chronic Code(s): L97.922 - 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chronic ulcer of unspecified part of left lower leg with fat layer exposed (16) 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ulcer of right lower extremity with fat layer exposed Status: Chronic Code(s): L97.912 - 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chronic ulcer of unspecified part of right lower leg with fat layer exposed (17) Malnutrition Status: Chronic Code(s): E46 - Unspecified protein-calorie malnutrition Type of Wound Date of Service: 04/09/18 Chief Complaint: Bilateral lower extremity swelling, edema, and lymphedema; chronic venous insufficiency; bilateral calf ulcerations. History of Wound: This is a 72-year-old female with a long-standing history of chronic swelling, edema, and lymphedema in her lower extremities. She sleeps in a recliner, with her legs in a dependent position. She is working on increasing her bed activities that she can better elevate her legs; this will be set up this next week. She suffers from Parkinson's disease, and has difficulties maneuvering herself into and out of a regular bed. She is not very active, and spends long hours each day in an idle sitting position. As result of her inactivity, she is not recruiting the calf and foot muscle pumps to aid venous return. Her last lower extremity arterial study was approximately 2 years ago, though was relatively normal. She had this study repeated and recently. She has been under the care of Dr. Kolby Kunz, vascular surgeon, and has undergone staged, bilateral lower extremity venous ablation procedures. I recommend she return to Dr. Kunz for follow-up of her recent abnormal vascular studies demonstrate noncompressibility and calcification of the arteries to the lower extremities. She has not been able to make this appointment yet as advised however reports contact has been made. She is currently using Dry Max and Jimy wraps to her lower extremities. She owns CircAid Velcro compression garments, but is not using. She also has pneumatic mechanical compression pumps, which she claims to be using once daily, though her compliance is in question. The ulcerations on her lower extremities are said to be highly exudative. She is not able to take Lasix as recommended due to urination frequency urinary incontinence. She has an appointment scheduled follow-up with Dr. Kunz for arterial intervention consideration is known that she is previously well known to him for venous intervention. She denies diarrhea or loss of appetite, fever, chill, nausea, vomiting. She is taking antibiotics as advised and is also being managed concurrently with infectious disease recommendations. She is scheduled to see Dr. Rodrigez next Saturday. Progress of Wound: Quality improvement bilateral - Physical Exam Vital Signs Temp Pulse Resp BP 98.7 F 68 18 120/76 04/09/18 14:53 04/09/18 14:53 04/09/18 14:53 04/09/18 14:53 General: Alert, Oriented x3, Cooperative Extremities: No cyanosis, Capillary Refill Less than 3 Seconds, No Calf Tenderness - Negative Cassie and Benitez sign bilateral, Diminished Peripheral Pulses, Edema Skin: Ulcer/ Wound - No purulence erythema streaking necrosis or liquefied tissue to the bilateral lower extremities. There is still periwound inflammation which is decreased and there is no deep tissue exposure bilateral. The wound beds are granular and fibrous, - - The peripheral skin is hairless and atrophic Wound Measurements and Assessment WC - Nurse 1 - General Ulcer Measurement Start: 03/12/18 13:07 Freq: Status: Active Protocol: Activity Type Activity Date Activity User E-Sign Co-Sign Detail Recorded Client Recorded Date Recorded By Document 04/09/18 14:53 [id number] 04/09/18 15:00 04/09/18 14:53 Wound Center Nurse 1 [Ulcer Assessment] #8 [id number] CALF cluster -Combined with other wound No -Current Size (cm) - Length 7.5 -Current Size (cm) - Width 25.0 -Current Size (cm) - Depth 0.1 -Total Square Cm 187.50 -Photo Taken Yes -Epithelialization Small 1-33% -Tunneling No -Undermining/Tunneling No -Circular Undermining No -Exudate Amt Medium (34-66%) -Exudate Type Serosanguineous -Wound Margin Flat & Intact -Granulation Amt Small (1-33%) -Granulation Quality [place] -Slough/Fibrin Yes -Necrosis Amt Large (67-100%) -Necrotic Tissue Type Adherent Slough -Structure Exposed N/A -Texture (Vickie-wound Skin Appearance) Assessed Localized Edema -Moisture (Vickie-wound Skin Appearance Assessed ) Dry/Scaly -Color (Vickie-wound Skin Appearance) Assessed Hemosiderin Staining -Temperature (Vickie-wound Skin No Abnormality Appearance) (Pt Warm) -Ulcer Cleansing Wound Cleanser -Foul Odor after Cleansing No -Anesthetic Used 4% Lidocaine Solution #4 L Lat LE cluster -Combined with other wound No -Current Size (cm) - Length 10 -Current Size (cm) - Width 20 -Current Size (cm) - Depth 0.2 -Total Square Cm 200 -Photo Taken Yes -Epithelialization Medium 34-66% -Tunneling No -Undermining/Tunneling No -Circular Undermining No -Exudate Amt Medium (34-66%) -Exudate Type Serosanguineous -Wound Margin Flat & Intact -Granulation Amt Small (1-33%) -Granulation Quality [place] -Slough/Fibrin Yes -Necrosis Amt Large (67-100%) -Necrotic Tissue Type Adherent Slough -Structure Exposed N/A -Texture (Vickie-wound Skin Appearance) Assessed Localized Edema -Moisture (Vickie-wound Skin Appearance Assessed ) Dry/Scaly -Color (Vickie-wound Skin Appearance) Assessed Hemosiderin Staining -Temperature (Vickie-wound Skin No Abnormality Appearance) (Pt Warm) -Tenderness on Palpation (Vickie-wound No Skin Appearance) -Ulcer Cleansing Rinsed/ Irrigated with Saline -Foul Odor after Cleansing No -Anesthetic Used 4% Lidocaine Solution [Edema Assessment] -Lower Limb Edema Present Yes -Right Calf (cm) 60.6 -Right Ankle (cm) 25.0 -Left Calf (cm) 54.6 -Left Ankle (cm) 26.2 WC - Nurse 2 - General Ulcer CM Notes Start: 03/12/18 13:07 Freq: Status: Active Protocol: Activity Type Activity Date Activity User E-Sign Co-Sign Detail Recorded Client Recorded Date Recorded By Document 04/09/18 15:29 [id number] 04/09/18 15:31 04/09/18 15:29 Wound Center Nurse 2 [Procedure/Treatment] #8 [id number] CALF cluster -Time 15:29 -Correct Patient Yes -Correct Side, Site, Position Yes -Correct Procedure Yes -Procedure Performed Yes -Type of Procedure Debridement -Clinical Debridement Subcutaneous -Post Debridement Size (cm) - Length 7.6 -Post Debridement Size (cm) - Width 25.1 -Post Debridement Size (cm) - Depth 0.1 -Total Square Cm 190.76 -Wound/Ulcer Outcome Not Healed -Ulcer Cleansing Rinsed/ Irrigated with Saline -Foul Odor after Cleansing No -Bioengineered Tissue No -Topical Lidocaine (%) 4 -Bleeding Controlled with Pressure -Treatment Response Procedure Tolerated Well #4 L Lat LE cluster -Time 15:30 -Correct Patient Yes -Correct Side, Site, Position Yes -Correct Procedure Yes -Procedure Performed Yes -Type of Procedure Debridement -Clinical Debridement Subcutaneous -Post Debridement Size (cm) - Length 10.1 -Post Debridement Size (cm) - Width 20.1 -Post Debridement Size (cm) - Depth 0.2 -Total Square Cm 203.01 -Wound/Ulcer Outcome Not Healed -Ulcer Cleansing Rinsed/ Irrigated with Saline -Foul Odor after Cleansing No -Bioengineered Tissue No -Topical Lidocaine (%) 4 -Bleeding Controlled with Pressure -Treatment Response Procedure Tolerated Well [See Physician Procedure note for Specifics] Pain Scale: 0-10 Numeric [Pain] -Is Patient Pain Free? Yes Musculoskeletal: No Tenderness to Palpation of Joints or Extremities, Muscle Wasting, Tenderness - Pain with wound manipulation Neurological: Sensory exam intact to light touch and pain Psych/Mental Status: Normal Affect, Appropriate Debridement Note Post-Debridement Measurements/Treatment WC - Nurse 2 - General Ulcer CM Notes Start: 03/12/18 13:07 Freq: Status: Active Protocol: Activity Type Activity Date Activity User E-Sign Co-Sign Detail Recorded Client Recorded Date Recorded By Document 03/12/18 13:36 [id number] 03/12/18 13:47 Document 03/19/18 13:40 [id number] 03/19/18 13:42 Document 03/26/18 13:51 [id number] 03/26/18 13:52 Document 04/02/18 14:46 [id number] 04/02/18 14:48 Document 04/09/18 15:29 [id number] 04/09/18 15:31 03/12/18 03/19/18 03/26/18 13:36 13:40 13:51 Wound Center Nurse 2 #8 [id number] CALF cluster -Time 13:45 13:41 13:51 -Correct Patient Yes Yes Yes -Correct Side, Site, Position Yes Yes Yes -Correct Procedure Yes Yes Yes -Procedure Performed Yes Yes Yes -Type of Procedure Debridement Debridement Debridement -Clinical Debridement Subcutaneous Subcutaneous Subcutaneous -Post Debridement Size (cm) - Length 22.6 10.1 11.1 -Post Debridement Size (cm) - Width 7.6 27.6 25.3 -Post Debridement Size (cm) - Depth 0.2 0.2 0.1 -Total Square Cm 171.76 278.76 280.83 -Wound/Ulcer Outcome Not Healed Not Healed Not Healed -Ulcer Cleansing Rinsed/ Rinsed/ Rinsed/ Irrigated with Irrigated with Irrigated with Saline Saline Saline -Foul Odor after Cleansing No No No -Bioengineered Tissue No No No -Topical Lidocaine (%) 4 4 4 -Bleeding Controlled with Pressure Pressure Pressure -Treatment Response Procedure Procedure Procedure Tolerated Well Tolerated Well Tolerated Well #4 L Lat LE cluster -Time 13:45 13:42 13:52 -Correct Patient Yes Yes Yes -Correct Side, Site, Position Yes Yes Yes -Correct Procedure Yes Yes Yes -Procedure Performed Yes Yes Yes -Type of Procedure Debridement Debridement Debridement -Clinical Debridement Subcutaneous Subcutaneous Subcutaneous -Post Debridement Size (cm) - Length 8.8 8.8 13.1 -Post Debridement Size (cm) - Width 8.6 8.6 18.6 -Post Debridement Size (cm) - Depth 0.2 0.2 0.1 -Total Square Cm 75.68 75.68 243.66 -Wound/Ulcer Outcome Not Healed Not Healed Not Healed -Ulcer Cleansing Rinsed/ Rinsed/ Rinsed/ Irrigated with Irrigated with Irrigated with Saline Saline Saline -Foul Odor after Cleansing No No No -Bioengineered Tissue No No No -Topical Lidocaine (%) 4 4 4 -Bleeding Controlled with Pressure Pressure Pressure -Treatment Response Procedure Procedure Procedure Tolerated Well Tolerated Well Tolerated Well Pain Scale: 0-10 Numeric Is Patient Pain Free? Yes Yes Yes 18 04/09/18 14:46 15:29 Wound Center Nurse 2 #8 [id number] CALF cluster -Time 14:47 15:29 -Correct Patient Yes Yes -Correct Side, Site, Position Yes Yes -Correct Procedure Yes Yes -Procedure Performed Yes Yes -Type of Procedure Debridement Debridement -Clinical Debridement Subcutaneous Subcutaneous -Post Debridement Size (cm) - Length 25 7.6 -Post Debridement Size (cm) - Width 11 25.1 -Post Debridement Size (cm) - Depth 0.1 0.1 -Total Square Cm 275 190.76 -Wound/Ulcer Outcome Not Healed Not Healed -Ulcer Cleansing Rinsed/ Rinsed/ Irrigated with Irrigated with Saline Saline -Foul Odor after Cleansing No No -Bioengineered Tissue No No -Topical Lidocaine (%) 4 -Bleeding Controlled with Pressure Pressure -Treatment Response Procedure Procedure Tolerated Well Tolerated Well #4 L Lat LE cluster -Time 14:47 15:30 -Correct Patient Yes Yes -Correct Side, Site, Position Yes Yes -Correct Procedure Yes Yes -Procedure Performed Yes Yes -Type of Procedure Debridement Debridement -Clinical Debridement Subcutaneous Subcutaneous -Post Debridement Size (cm) - Length 14.6 10.1 -Post Debridement Size (cm) - Width 7.6 20.1 -Post Debridement Size (cm) - Depth 0.1 0.2 -Total Square Cm 110.96 203.01 -Wound/Ulcer Outcome Not Healed Not Healed -Ulcer Cleansing Rinsed/ Rinsed/ Irrigated with Irrigated with Saline Saline -Foul Odor after Cleansing No No -Bioengineered Tissue No No -Topical Lidocaine (%) 4 -Bleeding Controlled with Pressure Pressure -Treatment Response Procedure Procedure Tolerated Well Tolerated Well Pain Scale: 0-10 Numeric Is Patient Pain Free? Yes Yes Wound debrided: leg Laterality: Right Wound Grade/Stage: grade 1 Type of Debridement: Excisional debridement Anesthesia Used: 4% Lidocaine Solution Depth: in the subcutaneous layer Percentage of wound debrided: 60 Instrument Used: #15 blade Tissue Removed: fibrous, devitalized subcutaneous, biofilm, slough Severity: Fat Layer Exposed Amount of bleeding with debridement: Mild Bleeding Controlled with: Pressure Patient tolerated procedure well - Additional Wound Wound debrided: leg Laterality: Left Wound Grade/Stage: grade 1 Type of Debridement: Excisional debridement Anesthesia Used: 4% Lidocaine Solution Depth: in the subcutaneous layer Percentage of wound debrided: 60 Instrument Used: #15 blade Tissue Removed: fibrous, devitalized subcutaneous, biofilm, slough Severity: Fat Layer Exposed Amount of bleeding with debridement: Mild Bleeding Controlled with: Pressure Patient tolerated procedure: Patient tolerated procedure well Assessment/Plan Assessment: Right leg ulcer with fat layer exposed- stanley grade 1. Left leg ulcer with fat layer exposed- stanley grade 1. Infection resolving and recurrent. Chronic leg edema secondary to venous insufficiency (s/p intervention) and lymphedema. Gait impairment secondary to obesity and Parkinson's disease. Delayed healing. Malnutrition suspected. Other comorbidities. Elevated hemoglobin A1c suggest diabetes diagnosis Plan: This is a 72-year-old female with Parkinson's disease. She suffers from severe swelling, edema, and lymphedema in her lower extremities, associated with ulcerations bilaterally. She also recently had an elevated hemoglobin A1c level consistent with diabetic status. The patient is relatively immobile. She sleeps in a recliner, with her legs in a dependent position. She sits idlely for long periods each day. She is currently setting up a bed area with a bedside commode handrails to facilitate improved elevation throughout the day. Her daughter would like her to proceed with specialized hospital bed and commode to provoke improved compliance with leg elevation and bathroom utilization. She was also seen by infectious disease previously. I am concerned about her deterioration noted to the right leg. A soft tissue culture was obtained and sent for aerobic, anaerobic, and MRSA PCR with the following findings: Enterobacter cloaca complex, Proteus mirabilis, MRSA, strep agalactiae b, Burkholderia cepacia, Bacteroides fragilis. She continues on Augmentin and Cipro and Bactrim and has enough medications after refill was provided to last until next week. Repeat labs are needed and in order will be provided and she will be advised to obtain this prior to her follow-up visit next Saturday. I recommend she wash her leg daily with Hibiclens during dressing changes. The patient has been using Dry Max and Jimy wraps to her lower extremities. She has previously undergone bilateral venous ablation procedures. It is felt that the patient would benefit from lifestyle modification. Enhanced efforts at elevation of the patient's lower extremities is recommended. The patient has been advised to sleep with her legs level with her heart, if not higher. Leg elevation has been recommended even during daytime hours. She has been advised to refrain from prolonged idle sitting. Activity has been encouraged, the patient is somewhat limited due to her Parkinson's disease. It is likely that the patient would benefit from enhanced compression to the lower extremities. A noninvasive lower extremity arterial study was obtained to assess the patient's arterial status, which will determine whether enhanced degrees of compression can be implemented. This was completed. The results include noncompressible vessels bilateral lower extremities and right toe brachial index 0.82 and left of 0.81. A referral to follow-up with Dr. Kunz has been arranged and she has been scheduled for arterial follow-up evaluation due to her lack of healing and vessel calcification noted on her noninvasive vascular studies. The patient has been advised to implement the use of her pneumatic compression pumps at least 2 or 3 times daily. Optimization of the patient's nutrition has been recommended as well. I provided a prescription for lift hospital bed and commode to aid in her daily activities. Her progressive physical deconditioning debility and walking difficulties are noted and is impairing her ability to remain compliant at home. Subcutaneous excisional debridement was performed to bilateral legs as noted in the clinical panel. To return to the wound healing center 1 week or call sooner if she has any questions or concerns.
== END 2018-04-11 23:59 ==
LOC: WC 14:45
PROVIDERS: Family Provider Internal Medicine; PCP Internal Medicine; Visit Provider Podiatrist
DX: E11.622 Type 2 diabetes mellitus with other skin ulcer (principal); E11.42 Type 2 diabetes mellitus with diabetic polyneuropathy; I89.0 Lymphedema, not elsewhere classified; E11.51 Type 2 diabetes mellitus with diabetic peripheral angiopathy without gangrene; I83.022 Varicose veins of left lower extremity with ulcer of calf; L97.222 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chronic ulcer of left calf with fat layer exposed; L97.212 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chronic ulcer of right calf with fat layer exposed; R32 Unspecified urinary incontinence; G20 Parkinson's disease
CPT/HCPCS: 11042; 11045; 87070; 87075; 87076; 87077; 87186; 87205; 99213; G0463

== ENCOUNTER 2018-05-07 13:00 | Outpatient (RCR) | payer MEDICARE, OTHER, SELFPAY ==
[2018-04-12 00:44] VITALS: BP 120/76; PULSE 68; RESP 18; TEMP 37.1
[2018-04-16 11:36] VITALS: BP 120/74; PULSE 79; RESP 18; TEMP 36
--- NOTE | 2018-04-16 12:03 | PCM.PN.ID ---
Subjective: Feeling ok, has been keeping legs up, swelling is improved. No fever, no pain. No n/v/d on abx. - Physical Exam General: Alert, Cooperative, No apparent distress Lungs: Clear to auscultation, Normal air movement Cardiovascular: Regular rate, Regular Rhythm Abdomen: Soft, Non Tender, Non-Distended Extremities: Edema Skin: Ulcer/ Wound - bilateral williamson ulcerations, R worse than L Vital Signs Temp Pulse Resp BP 96.8 F L 79 18 120/74 04/16/18 11:36 04/16/18 11:36 04/16/18 11:36 04/16/18 11:36 Oxygen Delivery Method Room Air Medical Necessity - Tobacco Use Smoking Status: Former smoker - quit 45 yrs ago Tobacco Use: Non-smoker Route of nutrition/ use of supplements: [] Nutritional Intake: [] IV Site: [] Grande Catheter: [] - Assessment/Plan Antibiotics: [] Assessment/Plan: [] RLE infected ulcer - recent cx with enterobacter, proteus, mrsa, GBS, bacteroides, and burkholderia. Has been on cipro, augmentin, and bactrim with some improvement. R williamson still with some purulence, recommend wound cx and re-eval abx once more information is back. Will follow, d/w Dr. Interiano.
[2018-04-16 13:35] LABS: Erythrocyte Sedimentation Rate 53 mm/hr (0-30)
[2018-04-16 13:39] LABS: Absolute Lymphocyte Count 0.83 X10^3/ul (0.83-4.51); Absolute Neutrophil Count 6.1 X10^3/uL (2.0-7.7); Basophil# 0.07 X10^3/uL; Basophil% 0.8 % (0-1); Eosinophil# 1.07 X10^3/uL; Eosinophils% 12.4 % (0-5); Hemoglobin 9.6 g/dl (12.0-15.0); Lymphocyte # 0.83 X10^3/ul (4.0); Lymphocyte % 9.6 % (19-41); Mean Corpuscular Hgb 26.1 pg (27.0-32.0); Mean Corpuscular Volume 84.2 fL (81-99); Mean Platelet Vol. 8.2 fl (6.2-12.0); Monocyte# 0.52 X10^3/uL; Neutrophil # 6.12 X10^3/uL (2.7-7.7); Neutrophil % 71.1 % (47-70); Platelet Count 333 K/mm3 (150-450); RBC Distribution Width CV 17.5 % (11.6-14.6); Red Blood Count 3.68 M/mm3 (4.2-5.4); White Blood Count 8.6 K/mm3 (4.4-11.0)
[2018-04-16 13:40] LABS: POSITIVE COUNT NO; POSITIVE DIFFERENTIAL NO; POSITIVE MORPHOLOGY NO
[2018-04-16 14:02] LABS: ALB/GLOB Ratio 0.6 RATIO (0.9-2.4); AST(SGOT) 13 U/L (15-37); Alanine Aminotransfer ALT/SGPT < 6 U/L (13-56); Albumin, Serum 2.9 g/dL (3.2-5.0); Alkaline Phosphatase 100 U/L (45-117); Anion Gap 10 (5-15); BUN 39 mg/dL (7-18); BUN/Creat Ratio 26.4 RATIO (10-20); Calcium,Total 8.5 mg/dL (8.5-10.1); Chloride 104 mmol/L (98-107); Creatinine, Serum 1.48 mg/dL (0.55-1.02); EST Glomerular Filtration Rate 37 mL/min (>60); Est Glom Filt Rate - Afr Amer 45 mL/min (>60); Globulin 4.8 g/dL (2.2-4.2); Glucose 82 mg/dL (74-106); Potassium 4.6 mmol/L (3.5-5.1); Protein, Total 7.7 g/dL (6.4-8.2); Sodium Level 138 mmol/L (136-145)
--- NOTE | 2018-04-16 14:22 | PCM.WC.PN ---
(1) Chronic ulcer of right leg with fat layer exposed Status: Chronic Current Visit: Yes Code(s): L97.912 - 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chronic ulcer of unspecified part of right lower leg with fat layer exposed (2) Ulcer of left lower extremity with fat layer exposed Status: Chronic Current Visit: Yes Code(s): L97.922 - 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chronic ulcer of unspecified part of left lower leg with fat layer exposed (3) Cellulitis of right leg Status: Chronic Current Visit: Yes Code(s): L03.115 - Cellulitis of right lower limb (4) Right leg pain Status: Chronic Current Visit: Yes Code(s): M79.604 - Pain in right leg (5) Left leg pain Status: Chronic Current Visit: Yes Code(s): M79.605 - Pain in left leg (6) Edema, leg Status: Chronic Current Visit: Yes Code(s): R60.0 - Localized edema (7) Chronic venous insufficiency Status: Chronic Current Visit: Yes Code(s): I87.2 - Venous insufficiency (chronic) (peripheral) (8) Type 2 diabetes mellitus with diabetic polyneuropathy Status: Chronic Current Visit: Yes Code(s): E11.42 - Type 2 diabetes mellitus with diabetic polyneuropathy (9) Lymphedema of lower extremity Status: Chronic Current Visit: Yes Qualifiers: Code(s): I89.0 - Lymphedema, not elsewhere classified (10) Malnutrition Status: Chronic Current Visit: Yes Code(s): E46 - Unspecified protein-calorie malnutrition Type of Wound Date of Service: 04/16/18 Chief Complaint: Bilateral lower extremity swelling, edema, and lymphedema; chronic venous insufficiency; bilateral calf ulcerations. History of Wound: This is a 72-year-old female with a long-standing history of chronic swelling, edema, and lymphedema in her lower extremities. She sleeps in a recliner, with her legs in a dependent position. She is working on increasing her bed activities that she can better elevate her legs; this will be set up this next week. She suffers from Parkinson's disease, and has difficulties maneuvering herself into and out of a regular bed. She is not very active, and spends long hours each day in an idle sitting position. As result of her inactivity, she is not recruiting the calf and foot muscle pumps to aid venous return. She has been under the care of Dr. Kolby Kunz, vascular surgeon, and has undergone staged, bilateral lower extremity venous ablation procedures. I recommend she return to Dr. Kunz for follow-up of her recent abnormal vascular studies demonstrate noncompressibility and calcification of the arteries to the lower extremities. She has not been able to make this appointment yet as advised however reports contact has been made. She is currently using Dry Max and Jimy wraps to her lower extremities. Her left limb has reduced drainage. The right leg continues to drain and has devitalized slough forming. She has been fitted for CircAid compression garments. She also has pneumatic mechanical compression pumps, which she claims to be using once daily, though her compliance is in question. The ulcerations on her lower extremities are said to be highly exudative. She is not able to take Lasix as recommended due to urination frequency urinary incontinence. She has some increased weeping drainage and odor to her right back leg. She saw infectious disease, Dr. Rodrigez, this morning and recommended a new culture. She will get updated labs today and continues on oral antibiotics. She denies diarrhea or loss of appetite, fever, chill, nausea, vomiting. Progress of Wound: Improving - Physical Exam Vital Signs Temp Pulse Resp BP 96.8 F L 79 18 120/74 04/16/18 11:36 04/16/18 11:36 04/16/18 11:36 04/16/18 11:36 General: Alert, Oriented x3, Cooperative Extremities: No cyanosis, No Calf Tenderness - Negative Cassie and Benitez sign bilateral, Diminished Peripheral Pulses, Edema Skin: Ulcer/ Wound - No erythema, streaking, deep tissue exposure, necrosis or liquefied tissue or odor bilateral. There is some fibrinous moderate drainage to the right posterior leg and decreased serosanguineous drainage to left leg. The peripheral skin is atrophic and hairless bilateral Wound Measurements and Assessment WC - Nurse 1 - General Ulcer Measurement Start: 04/16/18 11:36 Freq: Status: Active Protocol: Activity Type Activity Date Activity User E-Sign Co-Sign Detail Recorded Client Recorded Date Recorded By Document 04/16/18 11:36 TM [id number] 04/16/18 11:40 TM 04/16/18 11:36 Wound Center Nurse 1 [Ulcer Assessment] #8 [id number] CALF cluster -Combined with other wound No -Current Size (cm) - Length 10.0 -Current Size (cm) - Width 24.8 -Current Size (cm) - Depth 0.3 -Total Square Cm 248.00 -Photo Taken No -Epithelialization None Present -Tunneling No -Undermining/Tunneling No -Circular Undermining No -Classification - Thickness Full Thickness without Exposed Support Structure -Exudate Type Purulent -Wound Margin Fibrotic Scar, Thickened Scar -Granulation Amt Small (1-33%) -Granulation Quality Red -Slough/Fibrin Yes -Necrosis Amt Large (67-100%) -Necrotic Tissue Type Adherent Slough -Structure Exposed Fascia Fat Layer Exposed -Texture (Vickie-wound Skin Appearance) Assessed Excoriation Friable Localized Edema Scarring -Moisture (Vickie-wound Skin Appearance Weeping ) -Color (Vickie-wound Skin Appearance) Assessed Erythema Hemosiderin Staining -Temperature (Vickie-wound Skin No Abnormality Appearance) (Pt Warm) -Tenderness on Palpation (Vickie-wound No Skin Appearance) -Ulcer Cleansing Wound Cleanser -Foul Odor after Cleansing No -Anesthetic Used 4% Lidocaine Solution #4 L Lat LE cluster -Combined with other wound No -Current Size (cm) - Length 10.0 -Current Size (cm) - Width 15.5 -Current Size (cm) - Depth 0.2 -Total Square Cm 155.00 -Photo Taken No -Epithelialization Small 1-33% -Tunneling No -Undermining/Tunneling No -Circular Undermining No -Classification - Thickness Full Thickness without Exposed Support Structure -Exudate Amt Medium (34-66%) -Exudate Type Serous -Wound Margin Fibrotic Scar, Thickened Scar -Granulation Amt Large (67-100%) -Granulation Quality Red -Slough/Fibrin Yes -Necrosis Amt Small (1-33%) -Necrotic Tissue Type Adherent Slough -Structure Exposed Fascia Fat Layer Exposed -Texture (Vickie-wound Skin Appearance) Assessed Localized Edema Scarring -Moisture (Vickie-wound Skin Appearance No Abnormality ) Assessed -Color (Vickie-wound Skin Appearance) Assessed Hemosiderin Staining -Temperature (Vickie-wound Skin No Abnormality Appearance) (Pt Warm) -Tenderness on Palpation (Vickie-wound No Skin Appearance) -Ulcer Cleansing Wound Cleanser -Foul Odor after Cleansing No -Anesthetic Used 5% Lidocaine Gel [Edema Assessment] -Lower Limb Edema Present Yes -Right Calf (cm) 63.0 -Right Ankle (cm) 25.0 -Left Calf (cm) 56.0 -Left Ankle (cm) 26.0 ANATOLIY - Nurse 2 - General Ulcer CM Notes Start: 04/16/18 11:36 Freq: Status: Active Protocol: Activity Type Activity Date Activity User E-Sign Co-Sign Detail Recorded Client Recorded Date Recorded By Document 04/16/18 11:58 [id number] 04/16/18 11:59 04/16/18 11:58 Wound Center Nurse 2 [Procedure/Treatment] #8 [id number] CALF cluster -Time 11:58 -Correct Patient Yes -Correct Side, Site, Position Yes -Correct Procedure Yes -Procedure Performed Yes -Type of Procedure Debridement -Clinical Debridement Subcutaneous -Post Debridement Size (cm) - Length 10.1 -Post Debridement Size (cm) - Width 24.9 -Post Debridement Size (cm) - Depth 0.3 -Total Square Cm 251.49 -Wound/Ulcer Outcome Not Healed -Ulcer Cleansing Rinsed/ Irrigated with Saline -Foul Odor after Cleansing No -Bioengineered Tissue No -Topical Lidocaine (%) 4 -Bleeding Controlled with Pressure -Treatment Response Procedure Tolerated Well #4 L Lat LE cluster -Time 11:59 -Correct Patient Yes -Correct Side, Site, Position Yes -Correct Procedure Yes -Procedure Performed Yes -Type of Procedure Debridement -Clinical Debridement Subcutaneous -Post Debridement Size (cm) - Length 10.1 -Post Debridement Size (cm) - Width 15.6 -Post Debridement Size (cm) - Depth 0.2 -Total Square Cm 157.56 -Wound/Ulcer Outcome Not Healed -Ulcer Cleansing Rinsed/ Irrigated with Saline -Foul Odor after Cleansing No -Bioengineered Tissue No -Topical Lidocaine (%) 4 -Bleeding Controlled with Pressure -Treatment Response Procedure Tolerated Well [See Physician Procedure note for Specifics] Pain Scale: 0-10 Numeric [Pain] -Is Patient Pain Free? Yes Musculoskeletal: No Tenderness to Palpation of Joints or Extremities, Muscle Wasting Neurological: - - Altered sensation light touch bilateral lower extremities Psych/Mental Status: Normal Affect, Appropriate Debridement Note Post-Debridement Measurements/Treatment ANATOLIY - Nurse 2 - General Ulcer CM Notes Start: 04/16/18 11:36 Freq: Status: Active Protocol: Activity Type Activity Date Activity User E-Sign Co-Sign Detail Recorded Client Recorded Date Recorded By Document 04/16/18 11:58 [id number] 04/16/18 11:59 04/16/18 11:58 Wound Center Nurse 2 #8 [id number] CALF cluster -Time 11:58 -Correct Patient Yes -Correct Side, Site, Position Yes -Correct Procedure Yes -Procedure Performed Yes -Type of Procedure Debridement -Clinical Debridement Subcutaneous -Post Debridement Size (cm) - Length 10.1 -Post Debridement Size (cm) - Width 24.9 -Post Debridement Size (cm) - Depth 0.3 -Total Square Cm 251.49 -Wound/Ulcer Outcome Not Healed -Ulcer Cleansing Rinsed/ Irrigated with Saline -Foul Odor after Cleansing No -Bioengineered Tissue No -Topical Lidocaine (%) 4 -Bleeding Controlled with Pressure -Treatment Response Procedure Tolerated Well #4 L Lat LE cluster -Time 11:59 -Correct Patient Yes -Correct Side, Site, Position Yes -Correct Procedure Yes -Procedure Performed Yes -Type of Procedure Debridement -Clinical Debridement Subcutaneous -Post Debridement Size (cm) - Length 10.1 -Post Debridement Size (cm) - Width 15.6 -Post Debridement Size (cm) - Depth 0.2 -Total Square Cm 157.56 -Wound/Ulcer Outcome Not Healed -Ulcer Cleansing Rinsed/ Irrigated with Saline -Foul Odor after Cleansing No -Bioengineered Tissue No -Topical Lidocaine (%) 4 -Bleeding Controlled with Pressure -Treatment Response Procedure Tolerated Well Pain Scale: 0-10 Numeric Is Patient Pain Free? Yes Wound debrided: leg cluster Laterality: Right Wound Grade/Stage: grade 1 Type of Debridement: Excisional debridement Anesthesia Used: 4% Lidocaine Solution Depth: in the subcutaneous layer Percentage of wound debrided: 100 Instrument Used: #15 blade Tissue Removed: fibrous, devitalized subcutaneous, biofilm, slough Severity: Fat Layer Exposed Amount of bleeding with debridement: Mild Bleeding Controlled with: Pressure Patient tolerated procedure well - Additional Wound Wound debrided: leg cluster Laterality: Left Wound Grade/Stage: grade 1 Type of Debridement: Excisional debridement Anesthesia Used: 4% Lidocaine Solution Depth: in the subcutaneous layer Percentage of wound debrided: 100 Instrument Used: #15 blade Tissue Removed: fibrous, devitalized subcutaneous, biofilm, slough Severity: Fat Layer Exposed Amount of bleeding with debridement: Mild Bleeding Controlled with: Pressure Patient tolerated procedure: Patient tolerated procedure well Assessment/Plan Active Problems Cellulitis of right leg (Chronic) Ulcer of left lower extremity with fat layer exposed (Chronic) Right leg pain (Chronic) Left leg pain (Chronic) Edema, leg (Chronic) Chronic venous insufficiency (Chronic) Type 2 diabetes mellitus with diabetic polyneuropathy (Chronic) Chronic ulcer of right leg with fat layer exposed (Chronic) Lymphedema of lower extremity (Chronic) Malnutrition (Chronic) Assessment: Right leg ulcer with fat layer exposed with improving infection status. Left leg ulcer with fat layer exposed. Arterial disease lower extremities. Venous insufficiency suspected lower extremities. Edema bilateral lower extremities. Diabetes with elevated hemoglobin A1c level. Parkinson's disease. Gait impairment. Obesity. Delayed healing. Malnutrition. Right and left leg pain Plan: I reviewed her case and ongoing treatment plan. Debridement was performed as noted above and in the clinical panel (subcutaneous). 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 It is noted her body habitus is limiting the results. To continue diuresis plan with her primary care physician; she has not been able to start this yet due to ongoing inabilty to get to the rest room multiple times per day. A referral was provided to Dr. Kunz and this is scheduled and pending. Her noninvasive vascular studies demonstrate calcification making this nonconclusive. I recommend she also follows up with Dr. Kunz for this; she is now amendable and a referral will be completed. Today, a multilayer later compression dressing was applied to the lower extremities. She is advised to use CircAid compression in addition at home. A referral to the lymphedema clinic was also provided and potential intervention such as lymphatic massage, other compression pumps and garments were discussed. A compression pump has been received and she was advised to continue this twice daily. To continue absorption dressings. This will be changed by home health a couple times a week and was applied today. She may also want to consider jail facility placement if she is not able to have the appropriate support at home with home health and family help. She is doing well with this so far and demonstrates less periwound moisture and inflammation. We discussed in depth the importance of edema control. To keep legs elevated above heart while resting. To avoid lying directly on the wound while seated or in bed. To avoid idle standing or sitting for prolonged time. To monitor for signs of infection; she was reassured that this is not noted today. To continue take ibuprofen only as needed with caution. She was advised on safe and proper use. Updated culture tissue specimen was reviewed and it is noted she completed an oral course of Augmentin, bactrim, and Cipro. She had multi organism growth and a new culture was obtained today. The case was reviewed and discussed with infectious disease physician, Dr. Rodrigez. Labs to monitor her antibiotic use and infectious status were drawn today; CBC, CMP, ESR, C-reactive protein. To keep pressure off the wounds while lying in bed. To RTC (wound center) in 1 week with wound center or call sooner if she has questions or concerns. I answered all of her questions.
[2018-04-16 16:10] LABS: M R Staph aureus DNA By PCR Negative (Negative); Probe Check PASS; Specimen Processing Control PASS; Staph aureus DNA By PCR NEGATIVE (Negative)
[2018-04-30 15:40] VITALS: BP 116/79; PULSE 61; RESP 18; TEMP 36.6
--- NOTE | 2018-04-30 16:56 | PN.PCM_ITS ---
(1) Chronic ulcer of right leg with fat layer exposed Status: Chronic Code(s): L97.912 - 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chronic ulcer of unspecified part of right lower leg with fat layer exposed (2) Ulcer of left lower extremity with fat layer exposed Status: Chronic Code(s): L97.922 - 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chronic ulcer of unspecified part of left lower leg with fat layer exposed (3) Cellulitis of right leg Status: Chronic Code(s): L03.115 - Cellulitis of right lower limb (4) Right leg pain Status: Chronic Code(s): M79.604 - Pain in right leg (5) Left leg pain Status: Chronic Code(s): M79.605 - Pain in left leg (6) Edema, leg Status: Chronic Code(s): R60.0 - Localized edema (7) Chronic venous insufficiency Status: Chronic Code(s): I87.2 - Venous insufficiency (chronic) (peripheral) (8) Type 2 diabetes mellitus with diabetic polyneuropathy Status: Chronic Code(s): E11.42 - Type 2 diabetes mellitus with diabetic polyneuropathy (9) Lymphedema of lower extremity Status: Chronic Qualifiers: Code(s): I89.0 - Lymphedema, not elsewhere classified (10) Malnutrition Status: Chronic Code(s): E46 - Unspecified protein-calorie malnutrition Type of Wound Date of Service: 05/03/18 Chief Complaint: Bilateral lower extremity swelling, edema, and lymphedema; chronic venous insufficiency; bilateral calf ulcerations. History of Wound: This is a 72-year-old female with a long-standing history of chronic swelling, edema, and lymphedema in her lower extremities. She is working on increasing her bed activities that she can better elevate her legs; this will be set up this next week. She suffers from Parkinson's disease, and has difficulties maneuvering herself into and out of a regular bed. She is not very active, and spends long hours each day in an idle sitting position. As result of her inactivity, she is not recruiting the calf and foot muscle pumps to aid venous return. She has been under the care of Dr. Kolby Kunz, vascular surgeon, and has undergone staged, bilateral lower extremity venous ablation procedures. I recommend she return to Dr. Kunz for follow-up of her recent abnormal vascular studies demonstrate noncompressibility and calcification of the arteries to the lower extremities. She has not been able to make this appointment yet as advised however reports contact has been made. She is currently using Dry Max and Jimy wraps to her lower extremities. Her left limb has reduced drainage. The right leg continues to drain and has devitalized slough forming. She has been fitted for CircAid compression garments. She also has pneumatic mechanical compression pumps, which she claims to be using once daily, though her compliance is in question. The ulcerations on her lower extremities are said to be highly exudative. She is not able to take Lasix as recommended due to urination frequency urinary incontinence. She has some increased weeping drainage and odor to her right back leg. She saw infectious disease, Dr. Rodrigez, this morning and recommended a new culture. She will get updated labs today and continues on oral antibiotics. She denies diarrhea or loss of appetite, fever, chill, nausea , vomiting. Progress of Wound: Improving - Physical Exam Vital Signs Temp Pulse Resp BP 97.9 F 61 18 116/79 04/30/18 15:40 04/30/18 15:40 04/30/18 15:40 04/30/18 15:40 General: Alert, Oriented x3, Cooperative Extremities: No cyanosis, Capillary Refill Less than 3 Seconds, No Calf Tenderness, Diminished Peripheral Pulses, Edema, Tenderness - tenderness with wound manipulation Skin: Ulcer/ Wound - no purulence, no erythema, no streaking, no eschar, no devitalized fibrous plug today., - - atrophic skin bilateral Wound Measurements and Assessment WC - Nurse 1 - General Ulcer Measurement Start: 04/16/18 11:36 Freq: Status: Active Protocol: Activity Type Activity Date Activity User E-Sign Co-Sign Detail Recorded Client Recorded Date Recorded By Document 04/30/18 15:40 DV [id number] 04/30/18 16:13 DV 04/30/18 15:40 Wound Center Nurse 1 [Ulcer Assessment] #8 [id number] CALF cluster -Combined with other wound No -Current Size (cm) - Length 11.0 -Current Size (cm) - Width 25.5 -Current Size (cm) - Depth 0.5 -Total Square Cm 280.50 -Photo Taken No -Undermining/Tunneling No -Circular Undermining No -Classification - Thickness Full Thickness without Exposed Support Structure -Exudate Amt Large (67-100%) -Exudate Type Serous -Wound Margin Fibrotic Scar, Thickened Scar -Granulation Amt Large (67-100%) -Granulation Quality Pale [place] -Slough/Fibrin Yes -Necrosis Amt Large (67-100%) -Necrotic Tissue Type Adherent Slough -Structure Exposed None/Limited to Skin Breakdown -Texture (Vickie-wound Skin Appearance) Assessed Localized Edema Scarring Rash -Moisture (Vickie-wound Skin Appearance Assessed ) Weeping -Color (Vickie-wound Skin Appearance) Assessed Erythema Hemosiderin Staining -Temperature (Vickie-wound Skin No Abnormality Appearance) (Pt Warm) -Ulcer Cleansing Wound Cleanser -Foul Odor after Cleansing No -Anesthetic Used 4% Lidocaine Solution #4 L Lat LE cluster -Combined with other wound No -Current Size (cm) - Length 11.0 -Current Size (cm) - Width 27.0 -Current Size (cm) - Depth 0.3 -Total Square Cm 297.00 -Photo Taken No -Tunneling No -Undermining/Tunneling No -Circular Undermining No -Classification - Thickness Full Thickness without Exposed Support Structure -Exudate Amt Large (67-100%) -Exudate Type Serous -Wound Margin Fibrotic Scar, Thickened Scar -Granulation Amt Medium (34-66%) -Granulation Quality Pale [place] -Necrosis Amt Large (67-100%) -Necrotic Tissue Type Adherent Slough -Structure Exposed None/Limited to Skin Breakdown -Texture (Vickie-wound Skin Appearance) Assessed Localized Edema Scarring -Moisture (Vickie-wound Skin Appearance Assessed ) Weeping -Color (Vickie-wound Skin Appearance) Assessed Erythema Hemosiderin Staining -Temperature (Vickie-wound Skin No Abnormality Appearance) (Pt Warm) -Tenderness on Palpation (Vickie-wound Yes Skin Appearance) -Ulcer Cleansing Wound Cleanser -Foul Odor after Cleansing No -Anesthetic Used 4% Lidocaine Solution [Edema Assessment] -Lower Limb Edema Present Yes -Right Calf (cm) 57.9 -Right Ankle (cm) 25.5 -Left Calf (cm) 58.9 -Left Ankle (cm) 26.2 WC - Nurse 2 - General Ulcer CM Notes Start: 04/16/18 11:36 Freq: Status: Active Protocol: Activity Type Activity Date Activity User E-Sign Co-Sign Detail Recorded Client Recorded Date Recorded By Document 04/30/18 16:25 [email or web address] [id number] 04/30/18 16:32 04/30/18 16:25 Wound Center Nurse 2 [Procedure/Treatment] #8 [id number] CALF cluster -Time 16:25 -Correct Patient Yes -Correct Side, Site, Position Yes -Correct Procedure Yes -Procedure Performed Yes -Type of Procedure Debridement -Clinical Debridement Subcutaneous -Post Debridement Size (cm) - Length 11 -Post Debridement Size (cm) - Width 25.6 -Post Debridement Size (cm) - Depth 0.5 -Total Square Cm 281.6 -Wound/Ulcer Outcome Not Healed -Ulcer Cleansing Rinsed/ Irrigated with Saline -Foul Odor after Cleansing No -Bioengineered Tissue No -Bleeding Controlled with Pressure -Other 60% debrided -Treatment Response Procedure Tolerated Well #4 L Lat LE cluster -Time 16:27 -Correct Patient Yes -Correct Side, Site, Position Yes -Correct Procedure Yes -Procedure Performed Yes -Type of Procedure Debridement -Clinical Debridement Subcutaneous -Post Debridement Size (cm) - Length 11.1 -Post Debridement Size (cm) - Width 27 -Post Debridement Size (cm) - Depth 0.3 -Total Square Cm 299.7 -Wound/Ulcer Outcome Not Healed -Ulcer Cleansing Rinsed/ Irrigated with Saline -Foul Odor after Cleansing No -Bioengineered Tissue No -Bleeding Controlled with Pressure -Other 60% debrided. -Treatment Response Procedure Tolerated Well [See Physician Procedure note for Specifics] Pain Scale: 0-10 Numeric [Pain] -Is Patient Pain Free? Yes Musculoskeletal: No Tenderness to Palpation of Joints or Extremities, Muscle Wasting, - - compartments of lower extremity remain soft Neurological: Sensory exam intact to light touch and pain - hypersensative, - Psych/Mental Status: Normal Affect, Appropriate Debridement Note Post-Debridement Measurements/Treatment WC - Nurse 2 - General Ulcer CM Notes Start: 04/16/18 11:36 Freq: Status: Active Protocol: Activity Type Activity Date Activity User E-Sign Co-Sign Detail Recorded Client Recorded Date Recorded By Document 04/16/18 11:58 [id number] 04/16/18 11:59 Document 04/30/18 16:25 [id number] 04/30/18 16:32 04/16/18 04/30/18 11:58 16:25 Wound Center Nurse 2 #8 [id number] CALF cluster -Time 11:58 16:25 -Correct Patient Yes Yes -Correct Side, Site, Position Yes Yes -Correct Procedure Yes Yes -Procedure Performed Yes Yes -Type of Procedure Debridement Debridement -Clinical Debridement Subcutaneous Subcutaneous -Post Debridement Size (cm) - Length 10.1 11 -Post Debridement Size (cm) - Width 24.9 25.6 -Post Debridement Size (cm) - Depth 0.3 0.5 -Total Square Cm 251.49 281.6 -Wound/Ulcer Outcome Not Healed Not Healed -Ulcer Cleansing Rinsed/ Rinsed/ Irrigated with Irrigated with Saline Saline -Foul Odor after Cleansing No No -Bioengineered Tissue No No -Topical Lidocaine (%) 4 -Bleeding Controlled with Pressure Pressure -Other 60% debrided -Treatment Response Procedure Procedure Tolerated Well Tolerated Well #4 L Lat LE cluster -Time 11:59 16:27 -Correct Patient Yes Yes -Correct Side, Site, Position Yes Yes -Correct Procedure Yes Yes -Procedure Performed Yes Yes -Type of Procedure Debridement Debridement -Clinical Debridement Subcutaneous Subcutaneous -Post Debridement Size (cm) - Length 10.1 11.1 -Post Debridement Size (cm) - Width 15.6 27 -Post Debridement Size (cm) - Depth 0.2 0.3 -Total Square Cm 157.56 299.7 -Wound/Ulcer Outcome Not Healed Not Healed -Ulcer Cleansing Rinsed/ Rinsed/ Irrigated with Irrigated with Saline Saline -Foul Odor after Cleansing No No -Bioengineered Tissue No No -Topical Lidocaine (%) 4 -Bleeding Controlled with Pressure Pressure -Other 60% debrided. -Treatment Response Procedure Procedure Tolerated Well Tolerated Well Pain Scale: 0-10 Numeric Is Patient Pain Free? Yes Yes Wound debrided: leg Laterality: Right Wound Grade/Stage: grade 1 Type of Debridement: Excisional debridement Anesthesia Used: 4% Lidocaine Solution Depth: in the subcutaneous layer Percentage of wound debrided: 60 Instrument Used: #15 blade Tissue Removed: fibrous, devitalized subcutaneous, biofilm, slough Severity: Fat Layer Exposed Amount of bleeding with debridement: Mild Bleeding Controlled with: Pressure Patient tolerated procedure well - Additional Wound Wound debrided: leg Laterality: Left Wound Grade/Stage: grade 1 Type of Debridement: Excisional debridement Anesthesia Used: 4% Lidocaine Solution Depth: in the subcutaneous layer Percentage of wound debrided: 60 Instrument Used: #15 blade Tissue Removed: fibrous, devitalized subcutaneous, biofilm, slough Severity: Fat Layer Exposed Amount of bleeding with debridement: Mild Bleeding Controlled with: Pressure Patient tolerated procedure: Patient tolerated procedure well Assessment/Plan Assessment: Right leg ulcer with fat layer exposed with improving infection status. Left leg ulcer with fat layer exposed. Arterial disease lower extremities. Venous insufficiency suspected lower extremities. Edema bilateral lower extremities. Diabetes with elevated hemoglobin A1c level. Parkinson's disease. Gait impairment. Obesity. Delayed healing. Malnutrition. Right and left leg pain Plan: I reviewed her case and ongoing treatment plan. Debridement was performed as noted above and in the clinical panel (subcutaneous). 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 It is noted her body habitus is limiting the results. To continue diuresis plan with her primary care physician; she has not been able to start this yet due to ongoing inabilty to get to the rest room multiple times per day. A referral was provided to Dr. Kunz and this is scheduled and pending. Her noninvasive vascular studies demonstrate calcification making this nonconclusive. I recommend she also follows up with Dr. Kunz for this; she is now amendable and a referral will be completed. Today, a multilayer later compression dressing was applied to the lower extremities. She is advised to use CircAid compression in addition at home. A referral to the lymphedema clinic was also provided and potential intervention such as lymphatic massage, other compression pumps and garments were discussed. A compression pump has been received and she was advised to continue this twice daily. To continue absorption dressings. This will be changed by home health a couple times a week and was applied today. She may also want to consider long-term facility placement if she is not able to have the appropriate support at home with home health and family help. She is doing well with this so far and demonstrates less periwound moisture and inflammation. We discussed in depth the importance of edema control. To keep legs elevated above heart while resting. To avoid lying directly on the wound while seated or in bed. To avoid idle standing or sitting for prolonged time. To monitor for signs of infection; she was reassured that this is not noted today. To continue take ibuprofen only as needed with caution. She was advised on safe and proper use. Updated culture tissue specimen was reviewed and it is noted she completed an oral course of Augmentin, bactrim, and Cipro. She had multi organism growth and a new culture was obtained today. The case was reviewed and discussed with infectious disease physician, Dr. Rodrigez. I previously called her to tell her to obtain a refill on the antibiotics; she did not get this yet. she was advised to complete the course. Labs to monitor her antibiotic use and infectious status were drawn today; CBC, CMP, ESR, C-reactive protein. To keep pressure off the wounds while lying in bed. To RTC (wound center) in 1 week with wound center or call sooner if she has questions or concerns. I answered all of her questions.
[2018-05-07 12:59] VITALS: BP 112/75; PULSE 118; RESP 16; TEMP 35.9
--- NOTE | 2018-05-07 17:27 | PN.PCM_ITS ---
(1) Chronic ulcer of right leg with fat layer exposed Status: Chronic Current Visit: Yes Code(s): L97.912 - 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chronic ulcer of unspecified part of right lower leg with fat layer exposed (2) Ulcer of left lower extremity with fat layer exposed Status: Chronic Current Visit: Yes Code(s): L97.922 - 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chronic ulcer of unspecified part of left lower leg with fat layer exposed (3) Cellulitis of right leg Status: Chronic Current Visit: Yes Code(s): L03.115 - Cellulitis of right lower limb (4) Right leg pain Status: Chronic Current Visit: Yes Code(s): M79.604 - Pain in right leg (5) Left leg pain Status: Chronic Current Visit: Yes Code(s): M79.605 - Pain in left leg (6) Edema, leg Status: Chronic Current Visit: Yes Code(s): R60.0 - Localized edema (7) Chronic venous insufficiency Status: Chronic Current Visit: Yes Code(s): I87.2 - Venous insufficiency (chronic) (peripheral) (8) Type 2 diabetes mellitus with diabetic polyneuropathy Status: Chronic Current Visit: Yes Code(s): E11.42 - Type 2 diabetes mellitus with diabetic polyneuropathy (9) Lymphedema of lower extremity Status: Chronic Current Visit: Yes Qualifiers: Code(s): I89.0 - Lymphedema, not elsewhere classified (10) Malnutrition Status: Chronic Current Visit: Yes Code(s): E46 - Unspecified protein- calorie malnutrition Type of Wound Date of Service: 05/08/18 Chief Complaint: Bilateral lower extremity swelling, edema, and lymphedema; chronic venous insufficiency; bilateral calf ulcerations. History of Wound: This is a 72-year-old female with a long-standing history of chronic swelling, edema, and lymphedema in her lower extremities. She is tries to elevate her legs more. She suffers from Parkinson's disease, and has difficulties maneuvering herself into and out of a regular bed. She has been under the care of Dr. Kolby Kunz, vascular surgeon, and has undergone staged, bilateral lower extremity venous ablation procedures. I recommend she return to Dr. Kunz for follow-up of her recent abnormal vascular studies demonstrate noncompressibility and calcification of the arteries to the lower extremities. Medical records will be requested. She is currently using Dry Max and Jimy wraps to her lower extremities. Her left limb has reduced drainage. She has been fitted for CircAid compression garments. She also has pneumatic mechanical compression pumps, which she claims to be using once daily, though her compliance is in question. She has taken the antibiotics as prescribed. She denies fever, chill, nausea, vomiting. Progress of Wound: stable - Physical Exam Vital Signs Temp Pulse Resp BP 96.6 F L 118 H 16 112/75 05/07/18 12:59 05/07/18 12:59 05/07/18 12:59 05/07/18 12:59 General: Alert, Oriented x3, Cooperative Extremities: No cyanosis, Capillary Refill Less than 3 Seconds, No Calf Tenderness - negative dian and jackson, Diminished Peripheral Pulses, Edema - bilateral lower extremities, Tenderness - pain with wound manipulation bilateral Skin: Ulcer/ Wound - no purulence, no erythema, no infection, no streaking, no hever necrosis noted bilateral. peripheral skin is hairless and atrophic Wound Measurements and Assessment WC - Nurse 1 - General Ulcer Measurement Start: 04/16/18 11:36 Freq: Status: Active Protocol: Activity Type Activity Date Activity User E-Sign Co-Sign Detail Recorded Client Recorded Date Recorded By Document 05/07/18 12:59 [facility] [id number] 05/07/18 13:13 [facility] 05/07/18 12:59 Wound Center Nurse 1 [Ulcer Assessment] #8 [id number] CALF cluster -Current Size (cm) - Length 10.6 -Current Size (cm) - Width 26.4 -Current Size (cm) - Depth 0.2 -Total Square Cm 279.84 -Date of Last Picture (Recall this 05/07/18 field) -Photo Taken Yes -Epithelialization None Present -Tunneling No -Undermining/Tunneling No -Circular Undermining No -Exudate Amt Large (67-100%) -Exudate Type Serosanguineous -Wound Margin Distinct, Outline Attached -Granulation Amt Small (1-33%) -Granulation Quality Red -Slough/Fibrin Yes -Necrosis Amt Large (67-100%) -Necrotic Tissue Type Adherent Slough -Texture (Vickie-wound Skin Appearance) Scarring -Moisture (Vickie-wound Skin Appearance Maceration ) Dry/Scaly -Color (Vickie-wound Skin Appearance) Hemosiderin Staining Palor -Temperature (Vickie-wound Skin No Abnormality Appearance) (Pt Warm) -Tenderness on Palpation (Vickie-wound No Skin Appearance) -Ulcer Cleansing Wound Cleanser -Foul Odor after Cleansing No -Anesthetic Used 4% Lidocaine Solution #4 L Lat LE cluster -Combined with other wound No -Current Size (cm) - Length 9 -Current Size (cm) - Width 13.5 -Current Size (cm) - Depth 0.5 -Total Square Cm 121.5 -Date of Last Picture (Recall this 05/07/18 field) -Photo Taken Yes -Epithelialization None Present -Tunneling No -Undermining/Tunneling No -Circular Undermining No -Exudate Amt Large (67-100%) -Exudate Type Serosanguineous -Wound Margin Distinct, Outline Attached -Granulation Amt Small (1-33%) -Granulation Quality Red -Slough/Fibrin Yes -Necrosis Amt Large (67-100%) -Necrotic Tissue Type Adherent Slough -Texture (Vickie-wound Skin Appearance) Scarring -Moisture (Vickie-wound Skin Appearance Maceration ) -Color (Vickie-wound Skin Appearance) Hemosiderin Staining Palor -Temperature (Vickie-wound Skin No Abnormality Appearance) (Pt Warm) -Ulcer Cleansing Wound Cleanser -Foul Odor after Cleansing No -Anesthetic Used 4% Lidocaine Solution [Edema Assessment] -Lower Limb Edema Present Yes -Right Calf (cm) 60 -Right Ankle (cm) 26.5 -Left Calf (cm) 58.5 -Left Ankle (cm) 27.2 WC - Nurse 2 - General Ulcer CM Notes Start: 04/16/18 11:36 Freq: Status: Active Protocol: Activity Type Activity Date Activity User E-Sign Co-Sign Detail Recorded Client Recorded Date Recorded By Document 05/07/18 13:20 TM [id number] 05/07/18 13:29 TM 05/07/18 13:20 Wound Center Nurse 2 [Procedure/Treatment] #8 [id number] CALF cluster -Time 13:27 -Correct Patient Yes -Correct Side, Site, Position Yes -Correct Procedure Yes -Procedure Performed Yes -Type of Procedure Debridement -Clinical Debridement Subcutaneous -Post Debridement Size (cm) - Length 10.7 -Post Debridement Size (cm) - Width 26.5 -Post Debridement Size (cm) - Depth 0.2 -Total Square Cm 283.55 -Wound/Ulcer Outcome Not Healed -Ulcer Cleansing Rinsed/ Irrigated with Saline -Foul Odor after Cleansing No -Bioengineered Tissue No -Topical Lidocaine (%) 4 -Bleeding Controlled with Pressure -Treatment Response Procedure Tolerated Well #4 L Lat LE cluster -Time 13:28 -Correct Patient Yes -Correct Side, Site, Position Yes -Correct Procedure Yes -Procedure Performed Yes -Type of Procedure Debridement -Clinical Debridement Subcutaneous -Post Debridement Size (cm) - Length 9.1 -Post Debridement Size (cm) - Width 13.6 -Post Debridement Size (cm) - Depth 0.5 -Total Square Cm 123.76 -Wound/Ulcer Outcome Not Healed -Ulcer Cleansing Rinsed/ Irrigated with Saline -Foul Odor after Cleansing No -Bioengineered Tissue No -Topical Lidocaine (%) 4 -Bleeding Controlled with Pressure -Treatment Response Procedure Tolerated Well [See Physician Procedure note for Specifics] Pain Scale: 0-10 Numeric [Pain] -Is Patient Pain Free? Yes Musculoskeletal: No Tenderness to Palpation of Joints or Extremities, Muscle Wasting, - - no fluctuance on palpation bilateral Neurological: Sensory exam intact to light touch and pain Psych/Mental Status: Normal Affect, Appropriate Debridement Note Post-Debridement Measurements/Treatment WC - Nurse 2 - General Ulcer CM Notes Start: 04/16/18 11:36 Freq: Status: Active Protocol: Activity Type Activity Date Activity User E-Sign Co-Sign Detail Recorded Client Recorded Date Recorded By Document 04/16/18 11:58 [id number] 04/16/18 11:59 Document 04/30/18 16:25 [id number] 04/30/18 16:32 Document 05/07/18 13:20 [id number] 05/07/18 13:29 04/16/18 04/30/18 05/07/18 11:58 16:25 13:20 Wound Center Nurse 2 #8 [id number] CALF cluster -Time 11:58 16:25 13:27 -Correct Patient Yes Yes Yes -Correct Side, Site, Position Yes Yes Yes -Correct Procedure Yes Yes Yes -Procedure Performed Yes Yes Yes -Type of Procedure Debridement Debridement Debridement -Clinical Debridement Subcutaneous Subcutaneous Subcutaneous -Post Debridement Size (cm) - Length 10.1 11 10.7 -Post Debridement Size (cm) - Width 24.9 25.6 26.5 -Post Debridement Size (cm) - Depth 0.3 0.5 0.2 -Total Square Cm 251.49 281.6 283.55 -Wound/Ulcer Outcome Not Healed Not Healed Not Healed -Ulcer Cleansing Rinsed/ Rinsed/ Rinsed/ Irrigated with Irrigated with Irrigated with Saline Saline Saline -Foul Odor after Cleansing No No No -Bioengineered Tissue No No No -Topical Lidocaine (%) 4 4 -Bleeding Controlled with Pressure Pressure Pressure -Other 60% debrided -Treatment Response Procedure Procedure Procedure Tolerated Well Tolerated Well Tolerated Well #4 L Lat LE cluster -Time 11:59 16:27 13:28 -Correct Patient Yes Yes Yes -Correct Side, Site, Position Yes Yes Yes -Correct Procedure Yes Yes Yes -Procedure Performed Yes Yes Yes -Type of Procedure Debridement Debridement Debridement -Clinical Debridement Subcutaneous Subcutaneous Subcutaneous -Post Debridement Size (cm) - Length 10.1 11.1 9.1 -Post Debridement Size (cm) - Width 15.6 27 13.6 -Post Debridement Size (cm) - Depth 0.2 0.3 0.5 -Total Square Cm 157.56 299.7 123.76 -Wound/Ulcer Outcome Not Healed Not Healed Not Healed -Ulcer Cleansing Rinsed/ Rinsed/ Rinsed/ Irrigated with Irrigated with Irrigated with Saline Saline Saline -Foul Odor after Cleansing No No No -Bioengineered Tissue No No No -Topical Lidocaine (%) 4 4 -Bleeding Controlled with Pressure Pressure Pressure -Other 60% debrided. -Treatment Response Procedure Procedure Procedure Tolerated Well Tolerated Well Tolerated Well Pain Scale: 0-10 Numeric Is Patient Pain Free? Yes Yes Yes Wound debrided: leg Laterality: Right - g Wound Grade/Stage: grade 1 Type of Debridement: Excisional debridement Anesthesia Used: 4% Lidocaine Solution Depth: in the subcutaneous layer Percentage of wound debrided: 60 Instrument Used: #15 blade Tissue Removed: fibrous, devitalized subcutaneous, biofilm, slough Severity: Fat Layer Exposed Amount of bleeding with debridement: Mild Patient tolerated procedure well - Additional Wound Wound debrided: leg Laterality: Left Wound Grade/Stage: grade 1 Type of Debridement: Excisional debridement Anesthesia Used: 4% Lidocaine Solution Depth: in the subcutaneous layer Percentage of wound debrided: 60 Instrument Used: #15 blade Tissue Removed: fibrous, devitalized subcutaneous, biofilm, slough Severity: Fat Layer Exposed Amount of bleeding with debridement: Mild Bleeding Controlled with: Pressure Patient tolerated procedure: Patient tolerated procedure well Assessment/Plan Active Problems Cellulitis of right leg (Chronic) Ulcer of left lower extremity with fat layer exposed (Chronic) Right leg pain (Chronic) Left leg pain (Chronic) Edema, leg (Chronic) Chronic venous insufficiency (Chronic) Type 2 diabetes mellitus with diabetic polyneuropathy (Chronic) Chronic ulcer of right leg with fat layer exposed (Chronic) Lymphedema of lower extremity (Chronic) Malnutrition (Chronic) Assessment: Right leg ulcer with fat layer exposed with improving infection status. Left leg ulcer with fat layer exposed. Arterial disease lower extremities. Venous insufficiency suspected lower extremities. Edema bilateral lower extremities. Diabetes with elevated hemoglobin A1c level. Parkinson's disease. Gait impairment. Obesity. Delayed healing. Malnutrition. Right and left leg pain Plan: I reviewed her case and ongoing treatment plan. Debridement was performed as noted above and in the clinical panel (subcutaneous). 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 It is noted her body habitus is limiting the results. To continue diuresis plan with her primary care physician. A referral was provided to Dr. Kunz and this is scheduled and pending. Her noninvasive vascular studies demonstrate calcification making this nonconclusive. I recommend she also follows up with Dr. Kunz for this; she is now amendable and a referral will be completed. Results and plan documentation will be requested. Today, a multilayer later compression dressing was applied to the lower extremities. She is advised to use CircAid compression in addition at home. A referral to the lymphedema clinic was also provided and potential intervention such as lymphatic massage, other compression pumps and garments were discussed. A compression pump has been received and she was advised to continue this twice daily. To continue absorption dressings. This will be changed by home health a couple times a week and was applied today. She may also want to consider penitent[facility] facility placement if she is not able to have the appropriate support at home with home health and family help. She is doing well with this so far and demonstrates less periwound moisture and inflammation. We discussed in depth the importance of edema control. To keep legs elevated above heart while resting. To avoid lying directly on the wound while seated or in bed. To avoid idle standing or sitting for prolonged time. To monitor for signs of infection; she was reassured that this is not noted today. To complete course of antibiotics. To continue to take ibuprofen only as needed with caution. She was advised on safe and proper use. The case was reviewed and discussed with infectious disease physician, Dr. Rodrigez. Labs were previously reviewed from 04/16 including wbc 8.6, esr 53, c reactive protein 30.80, and albumin 2.9; serial labs will be reviewed. To keep pressure off the wounds while lying in bed. Pending vascular (arterial evaluation), surgical debridement with versajet and application of advance wound care product will be considered in the operating room. To RTC (wound center) in 1 week with wound center or call sooner if she has questions or concerns. I answered all of her questions.
== END 2018-05-11 23:59 ==
LOC: WC 13:00
PROVIDERS: Family Provider Internal Medicine; PCP Internal Medicine; Visit Provider Podiatrist
DX: E11.622 Type 2 diabetes mellitus with other skin ulcer (principal); I87.2 Venous insufficiency (chronic) (peripheral); E11.42 Type 2 diabetes mellitus with diabetic polyneuropathy; I89.0 Lymphedema, not elsewhere classified; L97.822 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chronic ulcer of other part of left lower leg with fat layer exposed; L97.812 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chronic ulcer of other part of right lower leg with fat layer exposed; Z87.891 Personal history of nicotine dependence; G20 Parkinson's disease
CPT/HCPCS: 11042; 11045; 80053; 85025; 85652; 86140; 87070; 87075; 87077; 87205; 87640

== ENCOUNTER 2018-06-11 13:00 | Outpatient (RCR) | payer MEDICARE, OTHER, SELFPAY ==
[2018-05-12 00:37] VITALS: BP 112/75; PULSE 118; RESP 16; TEMP 35.9
[2018-05-14 13:56] VITALS: BP 145/77; PULSE 72; RESP 16; TEMP 36.2
--- NOTE | 2018-05-14 16:59 | PCM.WC.PN ---
(1) Ulcer of left lower extremity with fat layer exposed Status: Chronic Code(s): L97.922 - 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chronic ulcer of unspecified part of left lower leg with fat layer exposed (2) Right leg pain Status: Chronic Code(s): M79.604 - Pain in right leg (3) Left leg pain Status: Chronic Code(s): M79.605 - Pain in left leg (4) Swelling of left lower extremity Status: Chronic Code(s): M79.89 - Other specified soft tissue disorders (5) Swelling of right lower extremity Status: Chronic Code(s): M79.89 - Other specified soft tissue disorders (6) Chronic venous insufficiency Status: Chronic Code(s): I87.2 - Venous insufficiency (chronic) (peripheral) (7) Lymphedema of left leg Status: Chronic Code(s): I89.0 - Lymphedema, not elsewhere classified (8) Lymphedema of right lower extremity Status: Chronic Code(s): I89.0 - Lymphedema, not elsewhere classified (9) Parkinsons disease Status: Chronic Code(s): G20 - Parkinson's disease (10) Type 2 diabetes mellitus with diabetic polyneuropathy Status: Chronic Code(s): E11.42 - Type 2 diabetes mellitus with diabetic polyneuropathy (11) Delayed wound healing Status: Chronic Code(s): T14.8 - Other injury of unspecified body region (12) Chronic ulcer of right leg with fat layer exposed Status: Chronic Code(s): L97.912 - 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chronic ulcer of unspecified part of right lower leg with fat layer exposed (13) Malnutrition Status: Chronic Code(s): E46 - Unspecified protein-calorie malnutrition Type of Wound Date of Service: 05/14/18 Chief Complaint: Bilateral lower extremity swelling, edema, and lymphedema; chronic venous insufficiency; bilateral calf ulcerations. History of Wound: This is a 72-year-old female with a long-standing history of chronic swelling, edema, and lymphedema in her lower extremities. She is tries to elevate her legs more. She suffers from Parkinson's disease, and has difficulties maneuvering herself into and out of a regular bed. She has been under the care of Dr. Kolby Kunz, vascular surgeon, and has undergone staged, bilateral lower extremity venous ablation procedures. I recommend she return to Dr. Kunz for follow-up of her recent abnormal vascular studies demonstrate noncompressibility and calcification of the arteries to the lower extremities. Medical records will be requested. She is currently using Dry Max and Jimy wraps to her lower extremities. Her left limb has reduced drainage. She has been fitted for CircAid compression garments. She also has pneumatic mechanical compression pumps, which she claims to be using once daily, though her compliance is in question. She has taken the antibiotics as prescribed. She denies fever, chill, nausea, vomiting. she is now amendable to try operating room debridement with advanced product application. Progress of Wound: stable - Physical Exam Vital Signs Temp Pulse Resp BP 97.2 F L 72 16 145/77 H 05/14/18 13:56 05/14/18 13:56 05/14/18 13:56 05/14/18 13:56 General: Alert, Oriented x3, Cooperative HEENT: Atraumatic Extremities: No cyanosis, Capillary Refill Less than 3 Seconds, No Calf Tenderness - bilateral negative dian and jackson, Diminished Peripheral Pulses, Edema - bilateral legs and thighs Skin: Ulcer/ Wound - no purulence, no odor, no infection, no streaking, no deep tissue exposed bilateral. atrophic peripheral skin noted Wound Measurements and Assessment WC - Nurse 1 - General Ulcer Measurement Start: 05/14/18 13:56 Freq: Status: Active Protocol: Activity Type Activity Date Activity User E-Sign Co-Sign Detail Recorded Client Recorded Date Recorded By Document 05/14/18 13:56 [id number] 05/14/18 14:00 05/14/18 13:56 Wound Center Nurse 1 [Ulcer Assessment] #8 [id number] CALF cluster -Combined with other wound No -Current Size (cm) - Length 10.2 -Current Size (cm) - Width 24.6 -Current Size (cm) - Depth 0.2 -Total Square Cm 250.92 -Photo Taken No -Epithelialization None Present -Tunneling No -Undermining/Tunneling No -Circular Undermining No -Exudate Amt Large (67-100%) -Exudate Type Serosanguineous -Wound Margin Distinct, Outline Attached -Granulation Amt Small (1-33%) -Granulation Quality Red -Slough/Fibrin Yes -Necrosis Amt Large (67-100%) -Necrotic Tissue Type Adherent Slough -Structure Exposed Fat Layer Exposed None/Limited to Skin Breakdown -Texture (Vickie-wound Skin Appearance) Assessed Scarring -Moisture (Vickie-wound Skin Appearance Assessed ) Maceration -Color (Vickie-wound Skin Appearance) Assessed Hemosiderin Staining Palor -Temperature (Vickie-wound Skin No Abnormality Appearance) (Pt Warm) -Tenderness on Palpation (Vikcie-wound No Skin Appearance) -Ulcer Cleansing Wound Cleanser -Foul Odor after Cleansing No -Anesthetic Used 4% Lidocaine Solution #4 L Lat LE cluster -Combined with other wound No -Current Size (cm) - Length 6.3 -Current Size (cm) - Width 9.5 -Current Size (cm) - Depth 0.3 -Total Square Cm 59.85 -Photo Taken No -Epithelialization None Present -Tunneling No -Undermining/Tunneling No -Circular Undermining No -Exudate Amt Large (67-100%) -Exudate Type Serosanguineous -Wound Margin Distinct, Outline Attached -Granulation Amt Small (1-33%) -Granulation Quality Red -Slough/Fibrin Yes -Necrosis Amt Large (67-100%) -Necrotic Tissue Type Adherent Slough -Structure Exposed Fat Layer Exposed None/Limited to Skin Breakdown -Texture (Vickie-wound Skin Appearance) Assessed Scarring -Moisture (Vickie-wound Skin Appearance Assessed ) Maceration -Color (Vickie-wound Skin Appearance) Assessed Hemosiderin Staining Palor -Temperature (Vickie-wound Skin No Abnormality Appearance) (Pt Warm) -Tenderness on Palpation (Vickie-wound No Skin Appearance) -Ulcer Cleansing Wound Cleanser -Foul Odor after Cleansing No -Anesthetic Used 5% Lidocaine Gel [Edema Assessment] -Right Calf (cm) 58.7 -Right Ankle (cm) 33.1 -Left Calf (cm) 59.1 -Left Ankle (cm) 33.4 WC - Nurse 2 - General Ulcer CM Notes Start: 05/14/18 13:56 Freq: Status: Active Protocol: Activity Type Activity Date Activity User E-Sign Co-Sign Detail Recorded Client Recorded Date Recorded By Document 05/14/18 14:38 [email or web address] [id number] 05/14/18 14:39 PARVIZ 05/14/18 14:38 Wound Center Nurse 2 [Procedure/Treatment] #8 [id number] CALF cluster -Time 14:38 -Correct Patient Yes -Correct Side, Site, Position Yes -Correct Procedure Yes -Procedure Performed Yes -Type of Procedure Debridement -Clinical Debridement Subcutaneous -Post Debridement Size (cm) - Length 10.3 -Post Debridement Size (cm) - Width 24.6 -Post Debridement Size (cm) - Depth 0.2 -Total Square Cm 253.38 -Wound/Ulcer Outcome Not Healed -Ulcer Cleansing Rinsed/ Irrigated with Saline -Foul Odor after Cleansing No -Bioengineered Tissue No -Bleeding Controlled with Pressure -Treatment Response Procedure Tolerated Well #4 L Lat LE cluster -Time 14:39 -Correct Patient Yes -Correct Side, Site, Position Yes -Correct Procedure Yes -Procedure Performed Yes -Type of Procedure Debridement -Clinical Debridement Subcutaneous -Post Debridement Size (cm) - Length 6.4 -Post Debridement Size (cm) - Width 9.6 -Post Debridement Size (cm) - Depth 0.3 -Total Square Cm 61.44 -Wound/Ulcer Outcome Not Healed -Ulcer Cleansing Rinsed/ Irrigated with Saline -Foul Odor after Cleansing No -Bioengineered Tissue No -Bleeding Controlled with Pressure -Treatment Response Procedure Tolerated Well [See Physician Procedure note for Specifics] Pain Scale: 0-10 Numeric [Pain] -Is Patient Pain Free? Yes Musculoskeletal: No Tenderness to Palpation of Joints or Extremities, Muscle Wasting Neurological: Sensory exam intact to light touch and pain Psych/Mental Status: Normal Affect, Appropriate Debridement Note Post-Debridement Measurements/Treatment WC - Nurse 2 - General Ulcer CM Notes Start: 05/14/18 13:56 Freq: Status: Active Protocol: Activity Type Activity Date Activity User E-Sign Co-Sign Detail Recorded Client Recorded Date Recorded By Document 05/14/18 14:38 [email or web address] [id number] 05/14/18 14:39 05/14/18 14:38 Wound Center Nurse 2 #8 [id number] CALF cluster -Time 14:38 -Correct Patient Yes -Correct Side, Site, Position Yes -Correct Procedure Yes -Procedure Performed Yes -Type of Procedure Debridement -Clinical Debridement Subcutaneous -Post Debridement Size (cm) - Length 10.3 -Post Debridement Size (cm) - Width 24.6 -Post Debridement Size (cm) - Depth 0.2 -Total Square Cm 253.38 -Wound/Ulcer Outcome Not Healed -Ulcer Cleansing Rinsed/ Irrigated with Saline -Foul Odor after Cleansing No -Bioengineered Tissue No -Bleeding Controlled with Pressure -Treatment Response Procedure Tolerated Well #4 L Lat LE cluster -Time 14:39 -Correct Patient Yes -Correct Side, Site, Position Yes -Correct Procedure Yes -Procedure Performed Yes -Type of Procedure Debridement -Clinical Debridement Subcutaneous -Post Debridement Size (cm) - Length 6.4 -Post Debridement Size (cm) - Width 9.6 -Post Debridement Size (cm) - Depth 0.3 -Total Square Cm 61.44 -Wound/Ulcer Outcome Not Healed -Ulcer Cleansing Rinsed/ Irrigated with Saline -Foul Odor after Cleansing No -Bioengineered Tissue No -Bleeding Controlled with Pressure -Treatment Response Procedure Tolerated Well Pain Scale: 0-10 Numeric Is Patient Pain Free? Yes Wound debrided: leg Laterality: Right Wound Grade/Stage: grade 1 Type of Debridement: Excisional debridement Anesthesia Used: 4% Lidocaine Solution Depth: in the subcutaneous layer Percentage of wound debrided: 100 Instrument Used: 7mm curette Tissue Removed: fibrous, devitalized subcutaneous, biofilm, slough Severity: Fat Layer Exposed Amount of bleeding with debridement: Mild Bleeding Controlled with: Pressure Patient tolerated procedure well - Additional Wound Wound debrided: leg Laterality: Left Wound Grade/Stage: grade 1 Type of Debridement: Excisional debridement Anesthesia Used: 4% Lidocaine Solution Depth: in the subcutaneous layer Percentage of wound debrided: 100 Instrument Used: 7mm curette Tissue Removed: fibrous, devitalized subcutaneous, biofilm, slough Severity: Fat Layer Exposed Amount of bleeding with debridement: Mild Bleeding Controlled with: Pressure Patient tolerated procedure: Patient tolerated procedure well Assessment/Plan Assessment: Right leg ulcer with fat layer exposed with improving infection status. Left leg ulcer with fat layer exposed. Arterial disease lower extremities. Venous insufficiency suspected lower extremities. Edema bilateral lower extremities. Diabetes with elevated hemoglobin A1c level. Parkinson's disease. Gait impairment. Obesity. Delayed healing. Malnutrition. Right and left leg pain Plan: I reviewed her case and ongoing treatment plan. Debridement was performed as noted above and in the clinical panel (subcutaneous). 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 It is noted her body habitus is limiting the results. To continue diuresis plan with her primary care physician. A referral was provided to Dr. Kunz and this is scheduled and pending. Her noninvasive vascular studies demonstrate calcification making this nonconclusive. I recommend she also follows up with Dr. Kunz for this. Results and plan documentation were reviewed from Dr. Kunz who confirmed calcification is noted per GIANA. She has triphasic waveforms and did not recommend additional arterial intervention at this time. Today, a multilayer later compression dressing was applied to the lower extremities. She is advised to use CircAid compression in addition at home. A referral to the lymphedema clinic was also provided and potential intervention such as lymphatic massage, other compression pumps and garments were discussed. A compression pump has been received and she was advised to continue this twice daily. To continue absorption dressings. This will be changed by home health a couple times a week and was applied today. She may also want to consider custodial facility placement if she is not able to have the appropriate support at home with home health and family help. She is doing well with this so far and demonstrates less periwound moisture and inflammation. We discussed in depth the importance of edema control. To keep legs elevated above heart while resting. To avoid lying directly on the wound while seated or in bed. To avoid idle standing or sitting for prolonged time. To monitor for signs of infection; she was reassured that this is not noted today. To complete course of antibiotics. To continue to take ibuprofen only as needed with caution. She was advised on safe and proper use. The case was previously reviewed and discussed with infectious disease physician, Dr. Rodrigez. She was reassured no local signs of infection are noted today. Labs were previously reviewed from 04/16 including wbc 8.6, esr 53, c reactive protein 30.80, and albumin 2.9; serial labs will be reviewed. To keep pressure off the wounds while lying in bed. surgical debridement with versajet and application of advance wound care product (epicord and amniofill) will be considered in the operating room. she is amendable at this time. The indications, procedure details, benefits, goals, risks, complications, and anticipated healing time and management were discussed. I answered her questions. She understands [facility] & P will be scheduled within 30 days of this procedure for this procedure planned as same day surgery and with MAC/local anesthesia. dental treatment coordinator will call her. To RTC (wound center) in 1 week with wound center or call sooner if she has questions or concerns. I answered all of her questions.
--- NOTE | 2018-05-14 17:02 | PN.PCM_ITS ---
(1) Ulcer of left lower extremity with fat layer exposed Status: Chronic Code(s): L97.922 - 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chronic ulcer of unspecified part of left lower leg with fat layer exposed (2) Right leg pain Status: Chronic Code(s): M79.604 - Pain in right leg (3) Left leg pain Status: Chronic Code(s): M79.605 - Pain in left leg (4) Swelling of left lower extremity Status: Chronic Code(s): M79.89 - Other specified soft tissue disorders (5) Swelling of right lower extremity Status: Chronic Code(s): M79.89 - Other specified soft tissue disorders (6) Chronic venous insufficiency Status: Chronic Code(s): I87.2 - Venous insufficiency (chronic) (peripheral) (7) Lymphedema of left leg Status: Chronic Code(s): I89.0 - Lymphedema, not elsewhere classified (8) Lymphedema of right lower extremity Status: Chronic Code(s): I89.0 - Lymphedema, not elsewhere classified (9) Parkinsons disease Status: Chronic Code(s): G20 - Parkinson's disease (10) Type 2 diabetes mellitus with diabetic polyneuropathy Status: Chronic Code(s): E11.42 - Type 2 diabetes mellitus with diabetic polyneuropathy (11) Delayed wound healing Status: Chronic Code(s): T14.8 - Other injury of unspecified body region (12) Chronic ulcer of right leg with fat layer exposed Status: Chronic Code(s): L97.912 - 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chronic ulcer of unspecified part of right lower leg with fat layer exposed (13) Malnutrition Status: Chronic Code(s): E46 - Unspecified protein-calorie malnutrition Type of Wound Date of Service: 05/14/18 Chief Complaint: Bilateral lower extremity swelling, edema, and lymphedema; chronic venous insufficiency; bilateral calf ulcerations. History of Wound: This is a 72-year-old female with a long-standing history of chronic swelling, edema, and lymphedema in her lower extremities. She is tries to elevate her legs more. She suffers from Parkinson's disease, and has difficulties maneuvering herself into and out of a regular bed. She has been under the care of Dr. Kolby Kunz, vascular surgeon, and has undergone staged, bilateral lower extremity venous ablation procedures. I recommend she return to Dr. Kunz for follow-up of her recent abnormal vascular studies demonstrate noncompressibility and calcification of the arteries to the lower extremities. Medical records will be requested. She is currently using Dry Max and Jimy wraps to her lower extremities. Her left limb has reduced drainage. She has been fitted for CircAid compression garments. She also has pneumatic mechanical compression pumps, which she claims to be using once daily, though her compliance is in question. She has taken the antibiotics as prescribed. She denies fever, chill, nausea, vomiting. she is now amendable to try operating room debridement with advanced product application. Progress of Wound: stable - Physical Exam Vital Signs Temp Pulse Resp BP 97.2 F L 72 16 145/77 H 05/14/18 13:56 05/14/18 13:56 05/14/18 13:56 05/14/18 13:56 General: Alert, Oriented x3, Cooperative HEENT: Atraumatic Extremities: No cyanosis, Capillary Refill Less than 3 Seconds, No Calf Tenderness - bilateral negative dian and jackson, Diminished Peripheral Pulses, Edema - bilateral legs and thighs Skin: Ulcer/ Wound - no purulence, no odor, no infection, no streaking, no deep tissue exposed bilateral. atrophic peripheral skin noted Wound Measurements and Assessment WC - Nurse 1 - General Ulcer Measurement Start: 05/14/18 13:56 Freq: Status: Active Protocol: Activity Type Activity Date Activity User E-Sign Co-Sign Detail Recorded Client Recorded Date Recorded By Document 05/14/18 13:56 [id number] 05/14/18 14:00 05/14/18 13:56 Wound Center Nurse 1 [Ulcer Assessment] #8 [id number] CALF cluster -Combined with other wound No -Current Size (cm) - Length 10.2 -Current Size (cm) - Width 24.6 -Current Size (cm) - Depth 0.2 -Total Square Cm 250.92 -Photo Taken No -Epithelialization None Present -Tunneling No -Undermining/Tunneling No -Circular Undermining No -Exudate Amt Large (67-100%) -Exudate Type Serosanguineous -Wound Margin Distinct, Outline Attached -Granulation Amt Small (1-33%) -Granulation Quality Red -Slough/Fibrin Yes -Necrosis Amt Large (67-100%) -Necrotic Tissue Type Adherent Slough -Structure Exposed Fat Layer Exposed None/Limited to Skin Breakdown -Texture (Vickie-wound Skin Appearance) Assessed Scarring -Moisture (Vickie-wound Skin Appearance Assessed ) Maceration -Color (Vickie-wound Skin Appearance) Assessed Hemosiderin Staining Palor -Temperature (Vickie-wound Skin No Abnormality Appearance) (Pt Warm) -Tenderness on Palpation (Vickie-wound No Skin Appearance) -Ulcer Cleansing Wound Cleanser -Foul Odor after Cleansing No -Anesthetic Used 4% Lidocaine Solution #4 L Lat LE cluster -Combined with other wound No -Current Size (cm) - Length 6.3 -Current Size (cm) - Width 9.5 -Current Size (cm) - Depth 0.3 -Total Square Cm 59.85 -Photo Taken No -Epithelialization None Present -Tunneling No -Undermining/Tunneling No -Circular Undermining No -Exudate Amt Large (67-100%) -Exudate Type Serosanguineous -Wound Margin Distinct, Outline Attached -Granulation Amt Small (1-33%) -Granulation Quality Red -Slough/Fibrin Yes -Necrosis Amt Large (67-100%) -Necrotic Tissue Type Adherent Slough -Structure Exposed Fat Layer Exposed None/Limited to Skin Breakdown -Texture (Vickie-wound Skin Appearance) Assessed Scarring -Moisture (Vickie-wound Skin Appearance Assessed ) Maceration -Color (Vickie-wound Skin Appearance) Assessed Hemosiderin Staining Palor -Temperature (Vickie-wound Skin No Abnormality Appearance) (Pt Warm) -Tenderness on Palpation (Vickie-wound No Skin Appearance) -Ulcer Cleansing Wound Cleanser -Foul Odor after Cleansing No -Anesthetic Used 5% Lidocaine Gel [Edema Assessment] -Right Calf (cm) 58.7 -Right Ankle (cm) 33.1 -Left Calf (cm) 59.1 -Left Ankle (cm) 33.4 WC - Nurse 2 - General Ulcer CM Notes Start: 05/14/18 13:56 Freq: Status: Active Protocol: Activity Type Activity Date Activity User E-Sign Co-Sign Detail Recorded Client Recorded Date Recorded By Document 05/14/18 14:38 [email or web address] [id number] 05/14/18 14:39 PARVIZ 05/14/18 14:38 Wound Center Nurse 2 [Procedure/Treatment] #8 [id number] CALF cluster -Time 14:38 -Correct Patient Yes -Correct Side, Site, Position Yes -Correct Procedure Yes -Procedure Performed Yes -Type of Procedure Debridement -Clinical Debridement Subcutaneous -Post Debridement Size (cm) - Length 10.3 -Post Debridement Size (cm) - Width 24.6 -Post Debridement Size (cm) - Depth 0.2 -Total Square Cm 253.38 -Wound/Ulcer Outcome Not Healed -Ulcer Cleansing Rinsed/ Irrigated with Saline -Foul Odor after Cleansing No -Bioengineered Tissue No -Bleeding Controlled with Pressure -Treatment Response Procedure Tolerated Well #4 L Lat LE cluster -Time 14:39 -Correct Patient Yes -Correct Side, Site, Position Yes -Correct Procedure Yes -Procedure Performed Yes -Type of Procedure Debridement -Clinical Debridement Subcutaneous -Post Debridement Size (cm) - Length 6.4 -Post Debridement Size (cm) - Width 9.6 -Post Debridement Size (cm) - Depth 0.3 -Total Square Cm 61.44 -Wound/Ulcer Outcome Not Healed -Ulcer Cleansing Rinsed/ Irrigated with Saline -Foul Odor after Cleansing No -Bioengineered Tissue No -Bleeding Controlled with Pressure -Treatment Response Procedure Tolerated Well [See Physician Procedure note for Specifics] Pain Scale: 0-10 Numeric [Pain] -Is Patient Pain Free? Yes Musculoskeletal: No Tenderness to Palpation of Joints or Extremities, Muscle Wasting Neurological: Sensory exam intact to light touch and pain Psych/Mental Status: Normal Affect, Appropriate Debridement Note Post-Debridement Measurements/Treatment WC - Nurse 2 - General Ulcer CM Notes Start: 05/14/18 13:56 Freq: Status: Active Protocol: Activity Type Activity Date Activity User E-Sign Co-Sign Detail Recorded Client Recorded Date Recorded By Document 05/14/18 14:38 [email or web address] [id number] 05/14/18 14:39 05/14/18 14:38 Wound Center Nurse 2 #8 [id number] CALF cluster -Time 14:38 -Correct Patient Yes -Correct Side, Site, Position Yes -Correct Procedure Yes -Procedure Performed Yes -Type of Procedure Debridement -Clinical Debridement Subcutaneous -Post Debridement Size (cm) - Length 10.3 -Post Debridement Size (cm) - Width 24.6 -Post Debridement Size (cm) - Depth 0.2 -Total Square Cm 253.38 -Wound/Ulcer Outcome Not Healed -Ulcer Cleansing Rinsed/ Irrigated with Saline -Foul Odor after Cleansing No -Bioengineered Tissue No -Bleeding Controlled with Pressure -Treatment Response Procedure Tolerated Well #4 L Lat LE cluster -Time 14:39 -Correct Patient Yes -Correct Side, Site, Position Yes -Correct Procedure Yes -Procedure Performed Yes -Type of Procedure Debridement -Clinical Debridement Subcutaneous -Post Debridement Size (cm) - Length 6.4 -Post Debridement Size (cm) - Width 9.6 -Post Debridement Size (cm) - Depth 0.3 -Total Square Cm 61.44 -Wound/Ulcer Outcome Not Healed -Ulcer Cleansing Rinsed/ Irrigated with Saline -Foul Odor after Cleansing No -Bioengineered Tissue No -Bleeding Controlled with Pressure -Treatment Response Procedure Tolerated Well Pain Scale: 0-10 Numeric Is Patient Pain Free? Yes Wound debrided: leg Laterality: Right Wound Grade/Stage: grade 1 Type of Debridement: Excisional debridement Anesthesia Used: 4% Lidocaine Solution Depth: in the subcutaneous layer Percentage of wound debrided: 100 Instrument Used: 7mm curette Tissue Removed: fibrous, devitalized subcutaneous, biofilm, slough Severity: Fat Layer Exposed Amount of bleeding with debridement: Mild Bleeding Controlled with: Pressure Patient tolerated procedure well - Additional Wound Wound debrided: leg Laterality: Left Wound Grade/Stage: grade 1 Type of Debridement: Excisional debridement Anesthesia Used: 4% Lidocaine Solution Depth: in the subcutaneous layer Percentage of wound debrided: 100 Instrument Used: 7mm curette Tissue Removed: fibrous, devitalized subcutaneous, biofilm, slough Severity: Fat Layer Exposed Amount of bleeding with debridement: Mild Bleeding Controlled with: Pressure Patient tolerated procedure: Patient tolerated procedure well Assessment/Plan Assessment: Right leg ulcer with fat layer exposed with improving infection status. Left leg ulcer with fat layer exposed. Arterial disease lower extremities. Venous insufficiency suspected lower extremities. Edema bilateral lower extremities. Diabetes with elevated hemoglobin A1c level. Parkinson's disease. Gait impairment. Obesity. Delayed healing. Malnutrition. Right and left leg pain Plan: I reviewed her case and ongoing treatment plan. Debridement was performed as noted above and in the clinical panel (subcutaneous). 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 It is noted her body habitus is limiting the results. To continue diuresis plan with her primary care physician. A referral was provided to Dr. Kunz and this is scheduled and pending. Her noninvasive vascular studies demonstrate calcification making this nonconclusive. I recommend she also follows up with Dr. Kunz for this. Results and plan documentation were reviewed from Dr. Kunz who confirmed calcification is noted per GIANA. She has triphasic waveforms and did not recommend additional arterial intervention at this time. Today, a multilayer later compression dressing was applied to the lower extremities. She is advised to use CircAid compression in addition at home. A referral to the lymphedema clinic was also provided and potential intervention such as lymphatic massage, other compression pumps and garments were discussed. A compression pump has been received and she was advised to continue this twice daily. To continue absorption dressings. This will be changed by home health a couple times a week and was applied today. She may also want to consider [facility] facility placement if she is not able to have the appropriate support at home with home health and family help. She is doing well with this so far and demonstrates less periwound moisture and inflammation. We discussed in depth the importance of edema control. To keep legs elevated above heart while resting. To avoid lying directly on the wound while seated or in bed. To avoid idle standing or sitting for prolonged time. To monitor for signs of i nfection; she was reassured that this is not noted today. To complete course of antibiotics. To continue to take ibuprofen only as needed with caution. She was advised on safe and proper use. The case was previously reviewed and discussed with infectious disease physician, Dr. Rodrigez. She was reassured no local signs of infection are noted today. Labs were previously reviewed from 04/16 including wbc 8.6, esr 53, c reactive protein 30.80, and albumin 2.9; serial labs will be reviewed. To keep pressure off the wounds while lying in bed. surgical debridement with versajet and application of advance wound care product (epicord and amniofill) will be considered in the operating room. she is amendable at this time. The indications, procedure details, benefits, goals, risks, complications, and anticipated healing time and management were discussed. I answered her questions. She understands [facility] will be scheduled within 30 days of this procedure for this procedure planned as same day surgery and with MAC/local anesthesia. recreation coordinator will call her. To RTC (wound center) in 1 week with wound center or call sooner if she has questions or concerns. I answered all of her questions.
[2018-05-21 13:35] VITALS: BP 101/56; PULSE 77; RESP 16; TEMP 36.5
--- NOTE | 2018-05-21 15:09 | PCM.WC.PN ---
(1) Chronic ulcer of right leg with fat layer exposed Status: Chronic Current Visit: Yes Code(s): L97.912 - 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chronic ulcer of unspecified part of right lower leg with fat layer exposed (2) Ulcer of left lower extremity with fat layer exposed Status: Chronic Current Visit: Yes Code(s): L97.922 - 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chronic ulcer of unspecified part of left lower leg with fat layer exposed (3) Right leg pain Status: Chronic Current Visit: Yes Code(s): M79.604 - Pain in right leg (4) Left leg pain Status: Chronic Current Visit: Yes Code(s): M79.605 - Pain in left leg (5) Swelling of left lower extremity Status: Chronic Current Visit: Yes Code(s): M79.89 - Other specified soft tissue disorders (6) Swelling of right lower extremity Status: Chronic Current Visit: Yes Code(s): M79.89 - Other specified soft tissue disorders (7) Chronic venous insufficiency Status: Chronic Current Visit: Yes Code(s): I87.2 - Venous insufficiency (chronic) (peripheral) (8) Lymphedema of left leg Status: Chronic Current Visit: Yes Code(s): I89.0 - Lymphedema, not elsewhere classified (9) Lymphedema of right lower extremity Status: Chronic Current Visit: Yes Code(s): I89.0 - Lymphedema, not elsewhere classified (10) Parkinsons disease Status: Chronic Current Visit: Yes Code(s): G20 - Parkinson's disease (11) Type 2 diabetes mellitus with diabetic polyneuropathy Status: Chronic Current Visit: Yes Code(s): E11.42 - Type 2 diabetes mellitus with diabetic polyneuropathy (12) Delayed wound healing Status: Chronic Current Visit: Yes Code(s): T14.8 - Other injury of unspecified body region (13) Malnutrition Status: Chronic Current Visit: Yes Code(s): E46 - Unspecified protein-calorie malnutrition Type of Wound Chief Complaint: Bilateral lower extremity swelling, edema, and lymphedema; chronic venous insufficiency; bilateral calf ulcerations. History of Wound: This is a 72-year-old female with a long-standing history of chronic swelling, edema, and lymphedema in her lower extremities. She is tries to elevate her legs more. She suffers from Parkinson's disease, and has difficulties maneuvering herself into and out of a regular bed. She has been under the care of Dr. Kolby Kunz, vascular surgeon, and has undergone staged, bilateral lower extremity venous ablation procedures. Additional arterial intervention was not recommended and it is noted she has triphasic waveforms to bilateral ankles. She is currently using Dry Max and Jimy wraps to her lower extremities. Her left limb has reduced drainage. She has been fitted for CircAid compression garments. She also has pneumatic mechanical compression pumps, which she claims to be using once daily, though her compliance is in question. She has taken the antibiotics as prescribed. She denies fever, chill, nausea, vomiting. she is now amendable to try operating room debridement with advanced product application. Progress of Wound: stable - Physical Exam Vital Signs Temp Pulse Resp BP 97.7 F L 77 16 101/56 L 05/21/18 13:35 05/21/18 13:35 05/21/18 13:35 05/21/18 13:35 General: Alert, Oriented x3, Cooperative Extremities: No cyanosis, Capillary Refill Less than 3 Seconds, No Calf Tenderness - Negative Cassie and Benitez sign bilateral, Diminished Peripheral Pulses, Edema - Bilateral lower extremities with hyperpigmentation; bottleneck appearance noted Skin: Ulcer/ Wound - No purulence, no erythema, streaking, no odor, no infection bilateral lower extremities. Wound beds are granular and fibrous. There is no deep exposed tissue eschar or necrosis bilateral the peripheral skin is hairless and atrophic bilateral Wound Measurements and Assessment WC - Nurse 1 - General Ulcer Measurement Start: 05/14/18 13:56 Freq: Status: Active Protocol: Activity Type Activity Date Activity User E-Sign Co-Sign Detail Recorded Client Recorded Date Recorded By Document 05/21/18 13:35 [id number] 05/21/18 13:53 05/21/18 13:35 Wound Center Nurse 1 [Ulcer Assessment] #8 [id number] CALF cluster -Combined with other wound No -Current Size (cm) - Length 24.5 -Current Size (cm) - Width 9 -Current Size (cm) - Depth 0.3 -Total Square Cm 220.5 -Photo Taken No -Epithelialization None Present -Tunneling No -Undermining/Tunneling No -Circular Undermining No -Granulation Amt Medium (34-66%) -Granulation Quality Red -Slough/Fibrin Yes -Necrosis Amt None Present (0 %) -Necrotic Tissue Type Adherent Slough -Moisture (Vickie-wound Skin Appearance Weeping ) -Temperature (Vickie-wound Skin No Abnormality Appearance) (Pt Warm) -Tenderness on Palpation (Vickie-wound Yes Skin Appearance) -Ulcer Cleansing Wound Cleanser -Foul Odor after Cleansing No -Anesthetic Used 5% Lidocaine Gel #4 L Lat LE cluster -Combined with other wound No -Current Size (cm) - Length 13.5 -Current Size (cm) - Width 7 -Current Size (cm) - Depth 0.3 -Total Square Cm 94.5 -Photo Taken No -Epithelialization None Present -Tunneling No -Undermining/Tunneling No -Circular Undermining No -Exudate Amt Large (67-100%) -Exudate Type Yellow/Green -Wound Margin Distinct, Outline Attached -Granulation Amt Medium (34-66%) -Granulation Quality Pale [place] Red -Slough/Fibrin Yes -Necrosis Amt None Present (0 %) -Necrotic Tissue Type Adherent Slough -Structure Exposed None/Limited to Skin Breakdown -Texture (Vickie-wound Skin Appearance) No Abnormality Assessed -Moisture (Vickie-wound Skin Appearance No Abnormality ) Assessed Weeping -Color (Vickie-wound Skin Appearance) No Abnormality Assessed -Temperature (Vickie-wound Skin No Abnormality Appearance) (Pt Warm) -Tenderness on Palpation (Vickie-wound Yes Skin Appearance) -Ulcer Cleansing Wound Cleanser -Foul Odor after Cleansing No -Anesthetic Used 5% Lidocaine Gel [Edema Assessment] -Lower Limb Edema Present Yes -Right Calf (cm) 53 -Right Ankle (cm) 25 -Left Calf (cm) 58 -Left Ankle (cm) 24 WC - Nurse 2 - General Ulcer CM Notes Start: 05/14/18 13:56 Freq: Status: Active Protocol: Activity Type Activity Date Activity User E-Sign Co-Sign Detail Recorded Client Recorded Date Recorded By Document 05/21/18 14:03 DV [id number] 05/21/18 14:16 DV 05/21/18 14:03 Wound Center Nurse 2 [Procedure/Treatment] #8 [id number] CALF cluster -Time 14:05 -Correct Patient Yes -Correct Side, Site, Position Yes -Correct Procedure Yes -Procedure Performed Yes -Type of Procedure Debridement -Clinical Debridement Subcutaneous -Post Debridement Size (cm) - Length 24.5 -Post Debridement Size (cm) - Width 9.0 -Post Debridement Size (cm) - Depth 0.3 -Total Square Cm 220.50 -Wound/Ulcer Outcome Not Healed -Ulcer Cleansing Rinsed/ Irrigated with Saline -Foul Odor after Cleansing No -Bioengineered Tissue No -Bleeding Controlled with Pressure -Treatment Response Procedure Tolerated Well #4 L Lat LE cluster -Time 14:07 -Correct Patient Yes -Correct Side, Site, Position Yes -Correct Procedure Yes -Procedure Performed Yes -Type of Procedure Debridement -Clinical Debridement Subcutaneous -Post Debridement Size (cm) - Length 13.5 -Post Debridement Size (cm) - Width 7.0 -Post Debridement Size (cm) - Depth 0.3 -Total Square Cm 94.50 -Wound/Ulcer Outcome Not Healed -Ulcer Cleansing Rinsed/ Irrigated with Saline -Foul Odor after Cleansing No -Bioengineered Tissue No -Bleeding Controlled with Pressure -Treatment Response Procedure Tolerated Well [See Physician Procedure note for Specifics] Pain Scale: 0-10 Numeric [Pain] -Is Patient Pain Free? Yes Musculoskeletal: No Tenderness to Palpation of Joints or Extremities, Muscle Wasting, - Neurological: Sensory exam intact to light touch and pain Psych/Mental Status: Normal Affect, Appropriate Debridement Note Post-Debridement Measurements/Treatment WC - Nurse 2 - General Ulcer CM Notes Start: 05/14/18 13:56 Freq: Status: Active Protocol: Activity Type Activity Date Activity User E-Sign Co-Sign Detail Recorded Client Recorded Date Recorded By Document 05/14/18 14:38 [id number] 05/14/18 14:39 Document 05/21/18 14:03 DV [id number] 05/21/18 14:16 DV 05/14/18 05/21/18 14:38 14:03 Wound Center Nurse 2 #8 [id number] CALF cluster -Time 14:38 14:05 -Correct Patient Yes Yes -Correct Side, Site, Position Yes Yes -Correct Procedure Yes Yes -Procedure Performed Yes Yes -Type of Procedure Debridement Debridement -Clinical Debridement Subcutaneous Subcutaneous -Post Debridement Size (cm) - Length 10.3 24.5 -Post Debridement Size (cm) - Width 24.6 9.0 -Post Debridement Size (cm) - Depth 0.2 0.3 -Total Square Cm 253.38 220.50 -Wound/Ulcer Outcome Not Healed Not Healed -Ulcer Cleansing Rinsed/ Rinsed/ Irrigated with Irrigated with Saline Saline -Foul Odor after Cleansing No No -Bioengineered Tissue No No -Bleeding Controlled with Pressure Pressure -Treatment Response Procedure Procedure Tolerated Well Tolerated Well #4 Tiarra MOREL cluster -Time 14:39 14:07 -Correct Patient Yes Yes -Correct Side, Site, Position Yes Yes -Correct Procedure Yes Yes -Procedure Performed Yes Yes -Type of Procedure Debridement Debridement -Clinical Debridement Subcutaneous Subcutaneous -Post Debridement Size (cm) - Length 6.4 13.5 -Post Debridement Size (cm) - Width 9.6 7.0 -Post Debridement Size (cm) - Depth 0.3 0.3 -Total Square Cm 61.44 94.50 -Wound/Ulcer Outcome Not Healed Not Healed -Ulcer Cleansing Rinsed/ Rinsed/ Irrigated with Irrigated with Saline Saline -Foul Odor after Cleansing No No -Bioengineered Tissue No No -Bleeding Controlled with Pressure Pressure -Treatment Response Procedure Procedure Tolerated Well Tolerated Well Pain Scale: 0-10 Numeric Is Patient Pain Free? Yes Yes Wound debrided: leg Laterality: Right Wound Grade/Stage: grade 1 Anesthesia Used: 4% Lidocaine Solution Depth: in the subcutaneous layer Percentage of wound debrided: 100, 60 Instrument Used: #15 blade Tissue Removed: fibrous, devitalized subcutaneous, biofilm, slough Severity: Fat Layer Exposed Amount of bleeding with debridement: Mild Bleeding Controlled with: Pressure Patient tolerated procedure well - Additional Wound Wound debrided: leg Laterality: Left Wound Grade/Stage: grade 1 Type of Debridement: Excisional debridement Anesthesia Used: 4% Lidocaine Solution Depth: in the subcutaneous layer Percentage of wound debrided: 60 Instrument Used: #15 blade Tissue Removed: fibrous, devitalized subcutaneous, biofilm, slough Severity: Fat Layer Exposed Amount of bleeding with debridement: Mild Bleeding Controlled with: Pressure Patient tolerated procedure: Patient tolerated procedure well Assessment/Plan Active Problems Ulcer of left lower extremity with fat layer exposed (Chronic) Right leg pain (Chronic) Left leg pain (Chronic) Swelling of left lower extremity (Chronic) Swelling of right lower extremity (Chronic) Chronic venous insufficiency (Chronic) Lymphedema of left leg (Chronic) Lymphedema of right lower extremity (Chronic) Parkinsons disease (Chronic) Type 2 diabetes mellitus with diabetic polyneuropathy (Chronic) Delayed wound healing (Chronic) Chronic ulcer of right leg with fat layer exposed (Chronic) Malnutrition (Chronic) Assessment: Right leg ulcer with fat layer exposed with improving infection status. Left leg ulcer with fat layer exposed. 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 Venous insufficiency suspected lower extremities. Edema bilateral lower extremities. Diabetes with elevated hemoglobin A1c level. Parkinson's disease. Gait impairment. Obesity. Delayed healing. Malnutrition. Right and left leg pain Plan: I reviewed her case and ongoing treatment plan. Debridement was performed as noted above and in the clinical panel (subcutaneous). 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 It is noted her body habitus is limiting the results. To continue diuresis plan with her primary care physician. Her noninvasive vascular studies demonstrate calcification making this nonconclusive. She did follow-up with Dr. Kunz for this and no intervention is planned. Hardening of the arteries is noted however there is triphasic waveforms to bilateral ankle levels. Today, a multilayer later compression dressing was applied to the lower extremities. She is advised to use CircAid compression in addition at home. A referral to the lymphedema clinic was also provided and potential intervention such as lymphatic massage, other compression pumps and garments were discussed. A compression pump has been received and she was advised to continue this twice daily. To continue absorption dressings. This will be changed by home health a couple times a week and was applied today. She may also want to consider [facility] facility placement if she is not able to have the appropriate support at home with home health and family help. She is doing well with this so far and demonstrates less periwound moisture and inflammation. We discussed in depth the importance of edema control. To keep legs elevated above heart while resting. To avoid lying directly on the wound while seated or in bed. To avoid idle standing or sitting for prolonged time. To monitor for signs of infection; she was reassured that this is not noted today. To complete course of antibiotics. To continue to take ibuprofen only as needed with caution. She was advised on safe and proper use. The case was previously reviewed and discussed with infectious disease physician, Dr. Rodrigez. She was reassured no local signs of infection are noted today. Labs were previously reviewed from 04/16 including wbc 8.6, esr 53, c reactive protein 30.80, and albumin 2.9; serial labs will be reviewed. To keep pressure off the wounds while lying in bed. surgical debridement with versajet and application of advance wound care product (epicord and amniofill) will be considered in the operating room. she is amendable at this time. The indications, procedure details, benefits, goals, risks, complications, and anticipated healing time and management were discussed. I answered her questions. She understands [facility] will be scheduled within 30 days of this procedure for this procedure planned as same day surgery and with MAC/local anesthesia. substance addiction coordinator will call her. To RTC (wound center) in 1 week with wound center or call sooner if she has questions or concerns. I would also recommend application of a negative pressure therapy back at the time of surgical intervention. Her daughter, Tomasa, will be contacted in regards to scheduling this per Maria G's request. I answered all of her questions.
[2018-05-28 13:34] VITALS: PULSE 72; RESP 16; TEMP 35.5
--- NOTE | 2018-05-28 14:43 | PCM.WC.PN ---
(1) Chronic ulcer of right leg with fat layer exposed Status: Chronic Current Visit: Yes Code(s): L97.912 - 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chronic ulcer of unspecified part of right lower leg with fat layer exposed (2) Ulcer of left lower extremity with fat layer exposed Status: Chronic Current Visit: Yes Code(s): L97.922 - 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chronic ulcer of unspecified part of left lower leg with fat layer exposed (3) Right leg pain Status: Chronic Current Visit: Yes Code(s): M79.604 - Pain in right leg (4) Left leg pain Status: Chronic Current Visit: Yes Code(s): M79.605 - Pain in left leg (5) Swelling of left lower extremity Status: Chronic Current Visit: Yes Code(s): M79.89 - Other specified soft tissue disorders (6) Swelling of right lower extremity Status: Chronic Current Visit: Yes Code(s): M79.89 - Other specified soft tissue disorders (7) Chronic venous insufficiency Status: Chronic Current Visit: Yes Code(s): I87.2 - Venous insufficiency (chronic) (peripheral) (8) Lymphedema of left leg Status: Chronic Current Visit: Yes Code(s): I89.0 - Lymphedema, not elsewhere classified (9) Lymphedema of right lower extremity Status: Chronic Current Visit: Yes Code(s): I89.0 - Lymphedema, not elsewhere classified (10) Parkinsons disease Status: Chronic Current Visit: Yes Code(s): G20 - Parkinson's disease (11) Type 2 diabetes mellitus with diabetic polyneuropathy Status: Chronic Current Visit: Yes Code(s): E11.42 - Type 2 diabetes mellitus with diabetic polyneuropathy (12) Malnutrition Status: Chronic Current Visit: Yes Code(s): E46 - Unspecified protein-calorie malnutrition (13) Delayed wound healing Status: Chronic Current Visit: Yes Code(s): T14.8XXD - Other injury of unspecified body region, subsequent encounter Type of Wound Date of Service: 05/28/18 Chief Complaint: Bilateral lower extremity swelling, edema, and lymphedema; chronic venous insufficiency; bilateral calf ulcerations. History of Wound: This is a 72-year-old female with a long-standing history of chronic swelling, edema, and lymphedema in her lower extremities. She tries to elevate her legs more. She suffers from Parkinson's disease, and has difficulties maneuvering herself into and out of a regular bed. She has been under the care of Dr. Kolby Kunz, vascular surgeon, and has undergone staged, bilateral lower extremity venous ablation procedures. Additional arterial intervention was not recommended and it is noted she has triphasic waveforms to bilateral ankles. She is currently using Dry Max and Jimy wraps to her lower extremities. Her left limb has reduced drainage. She has been fitted for CircAid compression garments. She also has pneumatic mechanical compression pumps, which she claims to be using once daily, though her compliance is in question. She has taken the antibiotics as prescribed. She denies fever, chill, nausea, vomiting. she is now amendable to try operating room debridement with advanced product application. Her daughter, Tomasa, is with her today to discuss the timing of this procedure and the details. Progress of Wound: stable - Physical Exam Vital Signs Temp Pulse Resp BP 96 F L 72 16 101/56 L 05/28/18 13:34 05/28/18 13:34 05/28/18 13:34 05/21/18 13:35 General: Alert, Oriented x3, Cooperative Extremities: No cyanosis, Capillary Refill Less than 3 Seconds, No Calf Tenderness - Negative Cassie and Benitez sign bilateral, Diminished Peripheral Pulses, Edema - Bilateral lower extremities Skin: Ulcer/ Wound - No purulence, erythema, streaking, odor, or acute signs of infection noted. There is no deep tissue exposure noted. All adjacent skin is hairless and atrophic with some hyperpigmentation. Wound Measurements and Assessment WC - Nurse 1 - General Ulcer Measurement Start: 05/14/18 13:56 Freq: Status: Active Protocol: Activity Type Activity Date Activity User E-Sign Co-Sign Detail Recorded Client Recorded Date Recorded By Document 05/28/18 13:34 [facility] [id number] 05/28/18 13:52 BM 05/28/18 13:34 Wound Center Nurse 1 [Ulcer Assessment] #8 [id number] CALF cluster -Combined with other wound No -Current Size (cm) - Length 11.4 -Current Size (cm) - Width 26.1 -Current Size (cm) - Depth 0.2 -Total Square Cm 297.54 -Photo Taken No -Epithelialization None Present -Tunneling No -Undermining/Tunneling No -Circular Undermining No -Exudate Amt Large (67-100%) -Exudate Type Serosanguineous -Wound Margin Distinct, Outline Attached -Granulation Amt Small (1-33%) -Granulation Quality Red -Slough/Fibrin Yes -Necrosis Amt Large (67-100%) -Necrotic Tissue Type Adherent Slough -Texture (Vickie-wound Skin Appearance) Excoriation Scarring -Moisture (Vickie-wound Skin Appearance Maceration ) Weeping Dry/Scaly -Color (Vickie-wound Skin Appearance) Erythema Hemosiderin Staining Palor -Temperature (Vickie-wound Skin No Abnormality Appearance) (Pt Warm) -Tenderness on Palpation (Vickie-wound Yes Skin Appearance) -Ulcer Cleansing Wound Cleanser -Foul Odor after Cleansing No -Anesthetic Used 4% Lidocaine Solution #4 L Lat LE cluster -Combined with other wound No -Current Size (cm) - Length 7 -Current Size (cm) - Width 13.5 -Current Size (cm) - Depth 0.2 -Total Square Cm 94.5 -Photo Taken No -Epithelialization None Present -Tunneling No -Undermining/Tunneling No -Circular Undermining No -Exudate Amt Large (67-100%) -Exudate Type Serosanguineous -Wound Margin Distinct, Outline Attached -Granulation Amt Small (1-33%) -Granulation Quality Red -Slough/Fibrin Yes -Necrosis Amt Large (67-100%) -Necrotic Tissue Type Adherent Slough -Texture (Vickie-wound Skin Appearance) Excoriation Scarring -Moisture (Vickie-wound Skin Appearance Maceration ) Weeping -Color (Vickie-wound Skin Appearance) Erythema Hemosiderin Staining Palor -Temperature (Vickie-wound Skin No Abnormality Appearance) (Pt Warm) -Tenderness on Palpation (Vickie-wound Yes Skin Appearance) -Ulcer Cleansing Wound Cleanser -Foul Odor after Cleansing No -Anesthetic Used 4% Lidocaine Solution [Edema Assessment] -Lower Limb Edema Present Yes -Right Calf (cm) 64.7 -Right Ankle (cm) 25.6 -Left Calf (cm) 59.3 -Left Ankle (cm) 26.5 WC - Nurse 2 - General Ulcer CM Notes Start: 05/14/18 13:56 Freq: Status: Active Protocol: Activity Type Activity Date Activity User E-Sign Co-Sign Detail Recorded Client Recorded Date Recorded By Document 05/28/18 14:14 TM [id number] 05/28/18 14:16 05/28/18 14:14 Wound Center Nurse 2 [Procedure/Treatment] #8 [id number] CALF cluster -Time 14:14 -Correct Patient Yes -Correct Side, Site, Position Yes -Correct Procedure Yes -Procedure Performed Yes -Type of Procedure Debridement -Clinical Debridement Subcutaneous -Post Debridement Size (cm) - Length 11.5 -Post Debridement Size (cm) - Width 26.2 -Post Debridement Size (cm) - Depth 0.2 -Total Square Cm 301.30 -Wound/Ulcer Outcome Not Healed -Ulcer Cleansing Rinsed/ Irrigated with Saline -Foul Odor after Cleansing No -Bioengineered Tissue No -Topical Lidocaine (%) 4 -Bleeding Controlled with Pressure -Treatment Response Procedure Tolerated Well #4 L Lat LE cluster -Time 14:14 -Correct Patient Yes -Correct Side, Site, Position Yes -Correct Procedure Yes -Procedure Performed Yes -Type of Procedure Debridement -Clinical Debridement Subcutaneous -Post Debridement Size (cm) - Length 7.1 -Post Debridement Size (cm) - Width 13.6 -Post Debridement Size (cm) - Depth 0.2 -Total Square Cm 96.56 -Wound/Ulcer Outcome Not Healed -Ulcer Cleansing Rinsed/ Irrigated with Saline -Foul Odor after Cleansing No -Bioengineered Tissue No -Topical Lidocaine (%) 4 -Bleeding Controlled with Pressure -Treatment Response Procedure Tolerated Well [See Physician Procedure note for Specifics] Pain Scale: 0-10 Numeric [Pain] -Is Patient Pain Free? Yes Musculoskeletal: No Tenderness to Palpation of Joints or Extremities, Muscle Wasting, - - Compartments remain soft to palpation bilateral lower extremities Neurological: Sensory exam intact to light touch and pain Psych/Mental Status: Normal Affect, Appropriate Debridement Note Post-Debridement Measurements/Treatment WC - Nurse 2 - General Ulcer CM Notes Start: 05/14/18 13:56 Freq: Status: Active Protocol: Activity Type Activity Date Activity User E-Sign Co-Sign Detail Recorded Client Recorded Date Recorded By Document 05/14/18 14:38 [id number] 05/14/18 14:39 Document 05/21/18 14:03 DV [id number] 05/21/18 14:16 DV Document 05/28/18 14:14 [id number] 05/28/18 14:16 05/14/18 05/21/18 05/28/18 14:38 14:03 14:14 Wound Center Nurse 2 #8 [id number] CALF cluster -Time 14:38 14:05 14:14 -Correct Patient Yes Yes Yes -Correct Side, Site, Position Yes Yes Yes -Correct Procedure Yes Yes Yes -Procedure Performed Yes Yes Yes -Type of Procedure Debridement Debridement Debridement -Clinical Debridement Subcutaneous Subcutaneous Subcutaneous -Post Debridement Size (cm) - Length 10.3 24.5 11.5 -Post Debridement Size (cm) - Width 24.6 9.0 26.2 -Post Debridement Size (cm) - Depth 0.2 0.3 0.2 -Total Square Cm 253.38 220.50 301.30 -Wound/Ulcer Outcome Not Healed Not Healed Not Healed -Ulcer Cleansing Rinsed/ Rinsed/ Rinsed/ Irrigated with Irrigated with Irrigated with Saline Saline Saline -Foul Odor after Cleansing No No No -Bioengineered Tissue No No No -Topical Lidocaine (%) 4 -Bleeding Controlled with Pressure Pressure Pressure -Treatment Response Procedure Procedure Procedure Tolerated Well Tolerated Well Tolerated Well #4 L Lat LE cluster -Time 14:39 14:07 14:14 -Correct Patient Yes Yes Yes -Correct Side, Site, Position Yes Yes Yes -Correct Procedure Yes Yes Yes -Procedure Performed Yes Yes Yes -Type of Procedure Debridement Debridement Debridement -Clinical Debridement Subcutaneous Subcutaneous Subcutaneous -Post Debridement Size (cm) - Length 6.4 13.5 7.1 -Post Debridement Size (cm) - Width 9.6 7.0 13.6 -Post Debridement Size (cm) - Depth 0.3 0.3 0.2 -Total Square Cm 61.44 94.50 96.56 -Wound/Ulcer Outcome Not Healed Not Healed Not Healed -Ulcer Cleansing Rinsed/ Rinsed/ Rinsed/ Irrigated with Irrigated with Irrigated with Saline Saline Saline -Foul Odor after Cleansing No No No -Bioengineered Tissue No No No -Topical Lidocaine (%) 4 -Bleeding Controlled with Pressure Pressure Pressure -Treatment Response Procedure Procedure Procedure Tolerated Well Tolerated Well Tolerated Well Pain Scale: 0-10 Numeric Is Patient Pain Free? Yes Yes Yes Wound debrided: leg cluster Laterality: Right Wound Grade/Stage: grade 1 Type of Debridement: Excisional debridement Anesthesia Used: 4% Lidocaine Solution Depth: in the subcutaneous layer Percentage of wound debrided: 60 Instrument Used: #15 blade Tissue Removed: fibrous, devitalized subcutaneous, biofilm, slough Severity: Fat Layer Exposed Amount of bleeding with debridement: Mild Bleeding Controlled with: Pressure Patient tolerated procedure well - Additional Wound Wound debrided: leg cluster Laterality: Left Wound Grade/Stage: grade 1 Type of Debridement: Excisional debridement Anesthesia Used: 4% Lidocaine Solution Depth: in the subcutaneous layer Percentage of wound debrided: 60 Instrument Used: #15 blade Tissue Removed: fibrous, devitalized subcutaneous, biofilm, slough Severity: Fat Layer Exposed Amount of bleeding with debridement: Mild Bleeding Controlled with: Pressure Patient tolerated procedure: Patient tolerated procedure well Assessment/Plan Active Problems Delayed wound healing (Chronic) Ulcer of left lower extremity with fat layer exposed (Chronic) Right leg pain (Chronic) Left leg pain (Chronic) Swelling of left lower extremity (Chronic) Swelling of right lower extremity (Chronic) Chronic venous insufficiency (Chronic) Lymphedema of left leg (Chronic) Lymphedema of right lower extremity (Chronic) Parkinsons disease (Chronic) Type 2 diabetes mellitus with diabetic polyneuropathy (Chronic) Delayed wound healing (Chronic) Chronic ulcer of right leg with fat layer exposed (Chronic) Malnutrition (Chronic) Assessment: Right leg ulcer with fat layer exposed with resolved infection. Left leg ulcer with fat layer exposed. 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 Venous insufficiency suspected lower extremities. Edema bilateral lower extremities. Diabetes with elevated hemoglobin A1c level. Parkinson's disease. Gait impairment. Obesity. Delayed healing. Malnutrition. Right and left leg pain Plan: I reviewed her case and ongoing treatment plan. Debridement was performed as noted above and in the clinical panel (subcutaneous). 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 It is noted her body habitus is limiting the results. To continue diuresis plan with her primary care physician. Her noninvasive vascular studies demonstrate calcification making this nonconclusive. She did follow-up with Dr. Kunz for this and no intervention is planned. Hardening of the arteries is noted however there is triphasic waveforms to bilateral ankle levels. Today, a multilayer later compression dressing was applied to the lower extremities. She is advised to use CircAid compression in addition at home. A referral to the lymphedema clinic was also provided and potential intervention such as lymphatic massage, other compression pumps and garments were discussed. A compression pump has been received and she was advised to continue this twice daily. To continue absorption dressings. This will be changed by home health a couple times a week and was applied today. She may also want to consider half-way facility placement if she is not able to have the appropriate support at home with home health and family help. She is doing well with this so far and demonstrates less periwound moisture and inflammation. We discussed in depth the importance of edema control. To keep legs elevated above heart while resting. To avoid lying directly on the wound while seated or in bed. To avoid idle standing or sitting for prolonged time. To monitor for signs of infection; she was reassured that this is not noted today. To complete course of antibiotics. To continue to take ibuprofen only as needed with caution. She was advised on safe and proper use. The case was previously reviewed and discussed with infectious disease physician, Dr. Rodrigez. She was reassured no local signs of infection are noted today. Labs were previously reviewed from 04/16 including wbc 8.6, esr 53, c reactive protein 30.80, and albumin 2.9; serial labs will be reviewed. To keep pressure off the wounds while lying in bed. surgical debridement with versajet and application of advance wound care product (amniofill) will be considered in the operating room. she is amendable at this time. The indications, procedure details, benefits, goals, risks, complications, and anticipated healing time and management were discussed. I answered her questions. She understands [facility] will be scheduled within 30 days of this procedure for this procedure planned as same day surgery and with MAC/local anesthesia. assessment coordinator will call her. I reviewed the timing of surgery and postoperative care plan with her daughter Tomasa today. She was tentatively scheduled for surgery on June 10 and this will be moved to the following week when Tomasa returns to [facility] and is more available to help her mother immediately after the procedure. To RTC (wound center) in 1 week with wound center or call sooner if she has questions or concerns. I would also recommend application of a negative pressure therapy back at the time of surgical intervention. I answered all of her questions.
--- NOTE | 2018-05-28 14:47 | PN.PCM_ITS ---
(1) Chronic ulcer of right leg with fat layer exposed Status: Chronic Current Visit: Yes Code(s): L97.912 - 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chronic ulcer of unspecified part of right lower leg with fat layer exposed (2) Ulcer of left lower extremity with fat layer exposed Status: Chronic Current Visit: Yes Code(s): L97.922 - 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chronic ulcer of unspecified part of left lower leg with fat layer exposed (3) Right leg pain Status: Chronic Current Visit: Yes Code(s): M79.604 - Pain in right leg (4) Left leg pain Status: Chronic Current Visit: Yes Code(s): M79.605 - Pain in left leg (5) Swelling of left lower extremity Status: Chronic Current Visit: Yes Code(s): M79.89 - Other specified soft tissue disorders (6) Swelling of right lower extremity Status: Chronic Current Visit: Yes Code(s): M79.89 - Other specified soft tissue disorders (7) Chronic venous insufficiency Status: Chronic Current Visit: Yes Code(s): I87.2 - Venous insufficiency (chronic) (peripheral) (8) Lymphedema of left leg Status: Chronic Current Visit: Yes Code(s): I89.0 - Lymphedema, not elsewhere classified (9) Lymphedema of right lower extremity Status: Chronic Current Visit: Yes Code(s): I89.0 - Lymphedema, not elsewhere classified (10) Parkinsons disease Status: Chronic Current Visit: Yes Code(s): G20 - Parkinson's disease (11) Type 2 diabetes mellitus with diabetic polyneuropathy Status: Chronic Current Visit: Yes Code(s): E11.42 - Type 2 diabetes mellitus with diabetic polyneuropathy (12) Malnutrition Status: Chronic Current Visit: Yes Code(s): E46 - Unspecified protein- calorie malnutrition (13) Delayed wound healing Status: Chronic Current Visit: Yes Code(s): T14.8XXD - Other injury of unspecified body region, subsequent encounter Type of Wound Date of Service: 05/28/18 Chief Complaint: Bilateral lower extremity swelling, edema, and lymphedema; chronic venous insufficiency; bilateral calf ulcerations. History of Wound: This is a 72-year-old female with a long-standing history of chronic swelling, edema, and lymphedema in her lower extremities. She tries to elevate her legs more. She suffers from Parkinson's disease, and has difficulties maneuvering herself into and out of a regular bed. She has been under the care of Dr. Kolby Kunz, vascular surgeon, and has undergone staged, bilateral lower extremity venous ablation procedures. Additional arterial intervention was not recommended and it is noted she has triphasic waveforms to bilateral ankles. She is currently using Dry Max and Jimy wraps to her lower extremities. Her left limb has reduced drainage. She has been fitted for CircAid compression garments. She also has pneumatic mechanical compression pumps, which she claims to be using once daily, though her compliance is in question. She has taken the antibiotics as prescribed. She denies fever, chill, nausea, vomiting. she is now amendable to try operating room debridement with advanced product application. Her daughter, Tomasa, is with her today to discuss the timing of this procedure and the details. Progress of Wound: stable - Physical Exam Vital Signs Temp Pulse Resp BP 96 F L 72 16 101/56 L 05/28/18 13:34 05/28/18 13:34 05/28/18 13:34 05/21/18 13:35 General: Alert, Oriented x3, Cooperative Extremities: No cyanosis, Capillary Refill Less than 3 Seconds, No Calf Tendern ess - Negative Cassie and Benitez sign bilateral, Diminished Peripheral Pulses, Edema - Bilateral lower extremities Skin: Ulcer/ Wound - No purulence, erythema, streaking, odor, or acute signs of infection noted. There is no deep tissue exposure noted. All adjacent skin is hairless and atrophic with some hyperpigmentation. Wound Measurements and Assessment WC - Nurse 1 - General Ulcer Measurement Start: 05/14/18 13:56 Freq: Status: Active Protocol: Activity Type Activity Date Activity User E-Sign Co-Sign Detail Recorded Client Recorded Date Recorded By Document 05/28/18 13:34 [facility] [id number] 05/28/18 13:52 [facility] 05/28/18 13:34 Wound Center Nurse 1 [Ulcer Assessment] #8 [id number] CALF cluster -Combined with other wound No -Current Size (cm) - Length 11.4 -Current Size (cm) - Width 26.1 -Current Size (cm) - Depth 0.2 -Total Square Cm 297.54 -Photo Taken No -Epithelialization None Present -Tunneling No -Undermining/Tunneling No -Circular Undermining No -Exudate Amt Large (67-100%) -Exudate Type Serosanguineous -Wound Margin Distinct, Outline Attached -Granulation Amt Small (1-33%) -Granulation Quality Red -Slough/Fibrin Yes -Necrosis Amt Large (67-100%) -Necrotic Tissue Type Adherent Slough -Texture (Vickie-wound Skin Appearance) Excoriation Scarring -Moisture (Vickie-wound Skin Appearance Maceration ) Weeping Dry/Scaly -Color (Vickie-wound Skin Appearance) Erythema Hemosiderin Staining Palor -Temperature (Vickie-wound Skin No Abnormality Appearance) (Pt Warm) -Tenderness on Palpation (Vickie-wound Yes Skin Appearance) -Ulcer Cleansing Wound Cleanser -Foul Odor after Cleansing No -Anesthetic Used 4% Lidocaine Solution #4 L Lat LE cluster -Combined with other wound No -Current Size (cm) - Length 7 -Current Size (cm) - Width 13.5 -Current Size (cm) - Depth 0.2 -Total Square Cm 94.5 -Photo Taken No -Epithelialization None Present -Tunneling No -Undermining/Tunneling No -Circular Undermining No -Exudate Amt Large (67-100%) -Exudate Type Serosanguineous -Wound Margin Distinct, Outline Attached -Granulation Amt Small (1-33%) -Granulation Quality Red -Slough/Fibrin Yes -Necrosis Amt Large (67-100%) -Necrotic Tissue Type Adherent Slough -Texture (Vickie-wound Skin Appearance) Excoriation Scarring -Moisture (Vickie-wound Skin Appearance Maceration ) Weeping -Color (Vickie-wound Skin Appearance) Erythema Hemosiderin Staining Palor -Temperature (Vickie-wound Skin No Abnormality Appearance) (Pt Warm) -Tenderness on Palpation (Vickie-wound Yes Skin Appearance) -Ulcer Cleansing Wound Cleanser -Foul Odor after Cleansing No -Anesthetic Used 4% Lidocaine Solution [Edema Assessment] -Lower Limb Edema Present Yes -Right Calf (cm) 64.7 -Right Ankle (cm) 25.6 -Left Calf (cm) 59.3 -Left Ankle (cm) 26.5 WC - Nurse 2 - General Ulcer CM Notes Start: 05/14/18 13:56 Freq: Status: Active Protocol: Activity Type Activity Date Activity User E-Sign Co-Sign Detail Recorded Client Recorded Date Recorded By Document 05/28/18 14:14 [id number] 05/28/18 14:16 05/28/18 14:14 Wound Center Nurse 2 [Procedure/Treatment] #8 [id number] CALF cluster -Time 14:14 -Correct Patient Yes -Correct Side, Site, Position Yes -Correct Procedure Yes -Procedure Performed Yes -Type of Procedure Debridement -Clinical Debridement Subcutaneous -Post Debridement Size (cm) - Length 11.5 -Post Debridement Size (cm) - Width 26.2 -Post Debridement Size (cm) - Depth 0.2 -Total Square Cm 301.30 -Wound/Ulcer Outcome Not Healed -Ulcer Cleansing Rinsed/ Irrigated with Saline -Foul Odor after Cleansing No -Bioengineered Tissue No -Topical Lidocaine (%) 4 -Bleeding Controlled with Pressure -Treatment Response Procedure Tolerated Well #4 L Lat LE cluster -Time 14:14 -Correct Patient Yes -Correct Side, Site, Position Yes -Correct Procedure Yes -Procedure Performed Yes -Type of Procedure Debridement -Clinical Debridement Subcutaneous -Post Debridement Size (cm) - Length 7.1 -Post Debridement Size (cm) - Width 13.6 -Post Debridement Size (cm) - Depth 0.2 -Total Square Cm 96.56 -Wound/Ulcer Outcome Not Healed -Ulcer Cleansing Rinsed/ Irrigated with Saline -Foul Odor after Cleansing No -Bioengineered Tissue No -Topical Lidocaine (%) 4 -Bleeding Controlled with Pressure -Treatment Response Procedure Tolerated Well [See Physician Procedure note for Specifics] Pain Scale: 0-10 Numeric [Pain] -Is Patient Pain Free? Yes Musculoskeletal: No Tenderness to Palpation of Joints or Extremities, Muscle Wasting, - - Compartments remain soft to palpation bilateral lower extremities Neurological: Sensory exam intact to light touch and pain Psych/Mental Status: Normal Affect, Appropriate Debridement Note Post-Debridement Measurements/Treatment WC - Nurse 2 - General Ulcer CM Notes Start: 05/14/18 13:56 Freq: Status: Active Protocol: Activity Type Activity Date Activity User E-Sign Co-Sign Detail Recorded Client Recorded Date Recorded By Document 05/14/18 14:38 [id number] 05/14/18 14:39 JF Document 05/21/18 14:03 DV [id number] 05/21/18 14:16 DV Document 05/28/18 14:14 [id number] 05/28/18 14:16 TM 05/14/18 05/21/18 05/28/18 14:38 14:03 14:14 Wound Center Nurse 2 #8 [id number] CALF cluster -Time 14:38 14:05 14:14 -Correct Patient Yes Yes Yes -Correct Side, Site, Position Yes Yes Yes -Correct Procedure Yes Yes Yes -Procedure Performed Yes Yes Yes -Type of Procedure Debridement Debridement Debridement -Clinical Debridement Subcutaneous Subcutaneous Subcutaneous -Post Debridement Size (cm) - Length 10.3 24.5 11.5 -Post Debridement Size (cm) - Width 24.6 9.0 26.2 -Post Debridement Size (cm) - Depth 0.2 0.3 0.2 -Total Square Cm 253.38 220.50 301.30 -Wound/Ulcer Outcome Not Healed Not Healed Not Healed -Ulcer Cleansing Rinsed/ Rinsed/ Rinsed/ Irrigated with Irrigated with Irrigated with Saline Saline Saline -Foul Odor after Cleansing No No No -Bioengineered Tissue No No No -Topical Lidocaine (%) 4 -Bleeding Controlled with Pressure Pressure Pressure -Treatment Response Procedure Procedure Procedure Tolerated Well Tolerated Well Tolerated Well #4 L Lat LE cluster -Time 14:39 14:07 14:14 -Correct Patient Yes Yes Yes -Correct Side, Site, Position Yes Yes Yes -Correct Procedure Yes Yes Yes -Procedure Performed Yes Yes Yes -Type of Procedure Debridement Debridement Debridement -Clinical Debridement Subcutaneous Subcutaneous Subcutaneous -Post Debridement Size (cm) - Length 6.4 13.5 7.1 -Post Debridement Size (cm) - Width 9.6 7.0 13.6 -Post Debridement Size (cm) - Depth 0.3 0.3 0.2 -Total Square Cm 61.44 94.50 96.56 -Wound/Ulcer Outcome Not Healed Not Healed Not Healed -Ulcer Cleansing Rinsed/ Rinsed/ Rinsed/ Irrigated with Irrigated with Irrigated with Saline Saline Saline -Foul Odor after Cleansing No No No -Bioengineered Tissue No No No -Topical Lidocaine (%) 4 -Bleeding Controlled with Pressure Pressure Pressure -Treatment Response Procedure Procedure Procedure Tolerated Well Tolerated Well Tolerated Well Pain Scale: 0-10 Numeric Is Patient Pain Free? Yes Yes Yes Wound debrided: leg cluster Laterality: Right Wound Grade/Stage: grade 1 Type of Debridement: Excisional debridement Anesthesia Used: 4% Lidocaine Solution Depth: in the subcutaneous layer Percentage of wound debrided: 60 Instrument Used: #15 blade Tissue Removed: fibrous, devitalized subcutaneous, biofilm, slough Severity: Fat Layer Exposed Amount of bleeding with debridement: Mild Bleeding Controlled with: Pressure Patient tolerated procedure well - Additional Wound Wound debrided: leg cluster Laterality: Left Wound Grade/Stage: grade 1 Type of Debridement: Excisional debridement Anesthesia Used: 4% Lidocaine Solution Depth: in the subcutaneous layer Percentage of wound debrided: 60 Instrument Used: #15 blade Tissue Removed: fibrous, devitalized subcutaneous, biofilm, slough Severity: Fat Layer Exposed Amount of bleeding with debridement: Mild Bleeding Controlled with: Pressure Patient tolerated procedure: Patient tolerated procedure well Assessment/Plan Active Problems Delayed wound healing (Chronic) Ulcer of left lower extremity with fat layer exposed (Chronic) Right leg pain (Chronic) Left leg pain (Chronic) Swelling of left lower extremity (Chronic) Swelling of right lower extremity (Chronic) Chronic venous insufficiency (Chronic) Lymphedema of left leg (Chronic) Lymphedema of right lower extremity (Chronic) Parkinsons disease (Chronic) Type 2 diabetes mellitus with diabetic polyneuropathy (Chronic) Delayed wound healing (Chronic) Chronic ulcer of right leg with fat layer exposed (Chronic) Malnutrition (Chronic) Assessment: Right leg ulcer with fat layer exposed with resolved infection. Left leg ulcer with fat layer exposed. 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 Venous insufficiency suspected lower extremities. Edema bilateral lower extremities. Diabetes with elevated hemoglobin A1c level. Parkinson's disease. Gait impairment. Obesity. Delayed healing. Malnutrition. Right and left leg pain Plan: I reviewed her case and ongoing treatment plan. Debridement was performed as noted above and in the clinical panel (subcutaneous). 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 It is noted her body habitus is limiting the results. To continue diuresis plan with her primary care physician. Her noninvasive vascular studies demonstrate calcification making this nonconclusive. She did follow-up with Dr. Kunz for this and no intervention is planned. Hardening of the arteries is noted however there is triphasic waveforms to bilateral ankle levels. Today, a multilayer later compression dressing was applied to the lower extremities. She is advised to use CircAid compression in addition at home. A referral to the lymphedema clinic was also provided and potential intervention such as lymphatic massage, other compression pumps and garments were discussed. A compression pump has been received and she was advised to continue this twice daily. To continue absorption dressings. This will be changed by home health a couple times a week and was applied today. She may also want to consider senior care facility placement if she is not able to have the appropriate support at home with home health and family help. She is doing well with this so far and demonstrates less periwound moisture and inflammation. We discussed in depth the importance of edema control. To keep legs elevated above heart while resting. To avoid lying directly on the wound while seated or in bed. To avoid idle standing or sitting for prolonged time. To monitor for signs of infection; she was reassured that this is not noted today. To complete course of antibiotics. To continue to take ibuprofen only as needed with caution. She was advised on safe and proper use. The case was previously reviewed and discussed with infectious disease physician, Dr. Rodrigez. She was reassured no local signs of infection are noted today. Labs were previously reviewed from 04/16 including wbc 8.6, esr 53, c reactive protein 30.80, and albumin 2.9; serial labs will be reviewed. To keep pressure off the wounds while lying in bed. surgical debridement with versajet and application of advance wound care product (amniofill) will be considered in the operating room. she is amendable at this time. The indications, procedure details, benefits, goals, risks, complications, and anticipated healing time and management were discussed. I answered her questions. She understands [facility] will be scheduled within 30 days of this procedure for this procedure planned as same day surgery and with MAC/local anesthesia. coding quality coordinator will call her. I reviewed the timing of surgery and postoperative care plan with her daughter Tomasa today. She was tentatively scheduled for surgery on June 10 and this will be moved to the following week when Tomasa returns to town and is more available to help her mother immediately after the procedure. To RTC (wound center) in 1 week with wound center or call sooner if she has questions or concerns. I would also recommend application of a negative pressure therapy back at the time of surgical intervention. I answered all of her questions.
[2018-06-04 13:24] VITALS: BP 131/66; PULSE 72; RESP 16; TEMP 35.2
--- NOTE | 2018-06-04 15:03 | PCM.WC.PN ---
(1) Chronic ulcer of right leg with fat layer exposed Status: Chronic Current Visit: Yes Code(s): L97.912 - 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chronic ulcer of unspecified part of right lower leg with fat layer exposed (2) Ulcer of left lower extremity with fat layer exposed Status: Chronic Current Visit: Yes Code(s): L97.922 - 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chronic ulcer of unspecified part of left lower leg with fat layer exposed (3) Right leg pain Status: Chronic Current Visit: Yes Code(s): M79.604 - Pain in right leg (4) Left leg pain Status: Chronic Current Visit: Yes Code(s): M79.605 - Pain in left leg (5) Swelling of left lower extremity Status: Chronic Current Visit: Yes Code(s): M79.89 - Other specified soft tissue disorders (6) Swelling of right lower extremity Status: Chronic Current Visit: Yes Code(s): M79.89 - Other specified soft tissue disorders (7) Chronic venous insufficiency Status: Chronic Current Visit: Yes Code(s): I87.2 - Venous insufficiency (chronic) (peripheral) (8) Lymphedema of left leg Status: Chronic Current Visit: Yes Code(s): I89.0 - Lymphedema, not elsewhere classified (9) Lymphedema of right lower extremity Status: Chronic Current Visit: Yes Code(s): I89.0 - Lymphedema, not elsewhere classified (10) Parkinsons disease Status: Chronic Current Visit: Yes Code(s): G20 - Parkinson's disease (11) Type 2 diabetes mellitus with diabetic polyneuropathy Status: Chronic Current Visit: Yes Code(s): E11.42 - Type 2 diabetes mellitus with diabetic polyneuropathy (12) Malnutrition Status: Chronic Current Visit: Yes Code(s): E46 - Unspecified protein-calorie malnutrition (13) Delayed wound healing Status: Chronic Current Visit: Yes Code(s): T14.8XXD - Other injury of unspecified body region, subsequent encounter Type of Wound Date of Service: 06/04/18 Chief Complaint: Bilateral lower extremity swelling, edema, and lymphedema; chronic venous insufficiency; bilateral calf ulcerations. History of Wound: This is a 72-year-old female with a long-standing history of chronic swelling, edema, and lymphedema in her lower extremities. She tries to elevate her legs more. She suffers from Parkinson's disease, and has difficulties maneuvering herself into and out of a regular bed. She has been under the care of Dr. Kolby Kunz, vascular surgeon, and has undergone staged, bilateral lower extremity venous ablation procedures. Additional arterial intervention was not recommended and it is noted she has triphasic waveforms to bilateral ankles. She is currently using Dry Max and Jimy wraps to her lower extremities. Her left limb has reduced drainage. She has been fitted for CircAid compression garments. She also has pneumatic mechanical compression pumps, which she claims to be using once daily, though her compliance is in question. She has taken the antibiotics as prescribed. She denies fever, chill, nausea, vomiting. she is now amendable to try operating room debridement with advanced product application. Her daughter, Tomasa, is with her today to complete the surgical consents and clarify time and date. She is scheduled for June 20 at 9 AM at [facility]. Progress of Wound: stable - Physical Exam Vital Signs Temp Pulse Resp BP 95.3 F L 72 16 131/66 H 06/04/18 13:24 06/04/18 13:24 06/04/18 13:24 06/04/18 13:24 General: Alert, Oriented x3, Cooperative Extremities: No cyanosis, Capillary Refill Less than 3 Seconds, No Calf Tenderness - Negative Cassie and Benitez sign bilateral, Diminished Peripheral Pulses, Edema - Bilateral lower extremities consistent with significant edema and lymphedema, - - Compartments remain soft bilateral lower extremities Skin: Ulcer/ Wound - No purulence, erythema, streaking, odor, or infection. There is continued weeping noted. The skin is very hairless and atrophic bilateral. There is no exposed tendon or maceration noted Wound Measurements and Assessment WC - Nurse 1 - General Ulcer Measurement Start: 05/14/18 13:56 Freq: Status: Active Protocol: Activity Type Activity Date Activity User E-Sign Co-Sign Detail Recorded Client Recorded Date Recorded By Document 06/04/18 13:24 [facility] [id number] 06/04/18 13:34 [facility] 06/04/18 13:24 Wound Center Nurse 1 [Ulcer Assessment] #8 [id number] CALF cluster -Current Size (cm) - Length 8.8 -Current Size (cm) - Width 27 -Current Size (cm) - Depth 0.2 -Total Square Cm 237.6 -Photo Taken No -Epithelialization None Present -Tunneling No -Undermining/Tunneling No -Circular Undermining No -Exudate Amt Large (67-100%) -Exudate Type Serosanguineous -Wound Margin Distinct, Outline Attached -Granulation Amt Small (1-33%) -Granulation Quality Red -Slough/Fibrin Yes -Necrosis Amt Large (67-100%) -Necrotic Tissue Type Adherent Slough -Structure Exposed Fascia Fat Layer Exposed -Texture (Vickie-wound Skin Appearance) Assessed Scarring -Moisture (Vickie-wound Skin Appearance Assessed ) Weeping -Color (Vickie-wound Skin Appearance) Assessed Hemosiderin Staining -Temperature (Vickie-wound Skin No Abnormality Appearance) (Pt Warm) -Tenderness on Palpation (Vickie-wound No Skin Appearance) -Ulcer Cleansing Rinsed/ Irrigated with Saline -Foul Odor after Cleansing No -Anesthetic Used 4% Lidocaine Solution #4 L Lat LE cluster -Current Size (cm) - Length 6.5 -Current Size (cm) - Width 13.5 -Current Size (cm) - Depth 0.2 -Total Square Cm 87.75 -Photo Taken No -Epithelialization None Present -Exudate Amt Large (67-100%) -Exudate Type Serosanguineous -Wound Margin Distinct, Outline Attached -Granulation Amt Small (1-33%) -Granulation Quality Red -Slough/Fibrin Yes -Necrosis Amt Large (67-100%) -Necrotic Tissue Type Adherent Slough -Structure Exposed Fascia Fat Layer Exposed -Texture (Vickie-wound Skin Appearance) Assessed Scarring -Moisture (Vickie-wound Skin Appearance Assessed ) Weeping -Color (Vickie-wound Skin Appearance) Assessed Hemosiderin Staining -Temperature (Vickie-wound Skin No Abnormality Appearance) (Pt Warm) -Tenderness on Palpation (Vickie-wound No Skin Appearance) -Ulcer Cleansing Rinsed/ Irrigated with Saline -Foul Odor after Cleansing No -Anesthetic Used 4% Lidocaine Solution [Edema Assessment] -Right Calf (cm) 64.9 -Right Ankle (cm) 26.5 -Left Calf (cm) 61 -Left Ankle (cm) 26.7 WC - Nurse 2 - General Ulcer CM Notes Start: 05/14/18 13:56 Freq: Status: Active Protocol: Activity Type Activity Date Activity User E-Sign Co-Sign Detail Recorded Client Recorded Date Recorded By Document 06/04/18 13:42 [id number] 06/04/18 13:49 06/04/18 13:42 Wound Center Nurse 2 [Procedure/Treatment] #8 [id number] CALF cluster -Time 13:48 -Correct Patient Yes -Correct Side, Site, Position Yes -Correct Procedure Yes -Procedure Performed Yes -Type of Procedure Debridement -Clinical Debridement Subcutaneous -Post Debridement Size (cm) - Length 8.8 -Post Debridement Size (cm) - Width 27.1 -Post Debridement Size (cm) - Depth 0.2 -Total Square Cm 238.48 -Wound/Ulcer Outcome Not Healed -Ulcer Cleansing Rinsed/ Irrigated with Saline -Foul Odor after Cleansing No -Bioengineered Tissue No -Bleeding Controlled with Pressure -Treatment Response Procedure Tolerated Well #4 L Lat LE cluster -Time 13:48 -Correct Patient Yes -Correct Side, Site, Position Yes -Correct Procedure Yes -Procedure Performed Yes -Type of Procedure Debridement -Clinical Debridement Subcutaneous -Post Debridement Size (cm) - Length 6.6 -Post Debridement Size (cm) - Width 13.5 -Post Debridement Size (cm) - Depth 0.2 -Total Square Cm 89.10 -Wound/Ulcer Outcome Not Healed -Ulcer Cleansing Rinsed/ Irrigated with Saline -Foul Odor after Cleansing No -Bioengineered Tissue No -Bleeding Controlled with Pressure -Treatment Response Procedure Tolerated Well [See Physician Procedure note for Specifics] Pain Scale: 0-10 Numeric [Pain] -Is Patient Pain Free? Yes Musculoskeletal: No Tenderness to Palpation of Joints or Extremities, Muscle Wasting Neurological: Sensory exam intact to light touch and pain Psych/Mental Status: Normal Affect, Appropriate Debridement Note Post-Debridement Measurements/Treatment WC - Nurse 2 - General Ulcer CM Notes Start: 05/14/18 13:56 Freq: Status: Active Protocol: Activity Type Activity Date Activity User E-Sign Co-Sign Detail Recorded Client Recorded Date Recorded By Document 05/14/18 14:38 [id number] 05/14/18 14:39 Document 05/21/18 14:03 DV [id number] 05/21/18 14:16 DV Document 05/28/18 14:14 TM [id number] 05/28/18 14:16 TM Document 06/04/18 13:42 [id number] 06/04/18 13:49 05/14/18 05/21/18 10/17/18 14:38 14:03 14:14 Wound Center Nurse 2 #8 [id number] CALF cluster -Time 14:38 14:05 14:14 -Correct Patient Yes Yes Yes -Correct Side, Site, Position Yes Yes Yes -Correct Procedure Yes Yes Yes -Procedure Performed Yes Yes Yes -Type of Procedure Debridement Debridement Debridement -Clinical Debridement Subcutaneous Subcutaneous Subcutaneous -Post Debridement Size (cm) - Length 10.3 24.5 11.5 -Post Debridement Size (cm) - Width 24.6 9.0 26.2 -Post Debridement Size (cm) - Depth 0.2 0.3 0.2 -Total Square Cm 253.38 220.50 301.30 -Wound/Ulcer Outcome Not Healed Not Healed Not Healed -Ulcer Cleansing Rinsed/ Rinsed/ Rinsed/ Irrigated with Irrigated with Irrigated with Saline Saline Saline -Foul Odor after Cleansing No No No -Bioengineered Tissue No No No -Topical Lidocaine (%) 4 -Bleeding Controlled with Pressure Pressure Pressure -Treatment Response Procedure Procedure Procedure Tolerated Well Tolerated Well Tolerated Well #4 L Lat LE cluster -Time 14:39 14:07 14:14 -Correct Patient Yes Yes Yes -Correct Side, Site, Position Yes Yes Yes -Correct Procedure Yes Yes Yes -Procedure Performed Yes Yes Yes -Type of Procedure Debridement Debridement Debridement -Clinical Debridement Subcutaneous Subcutaneous Subcutaneous -Post Debridement Size (cm) - Length 6.4 13.5 7.1 -Post Debridement Size (cm) - Width 9.6 7.0 13.6 -Post Debridement Size (cm) - Depth 0.3 0.3 0.2 -Total Square Cm 61.44 94.50 96.56 -Wound/Ulcer Outcome Not Healed Not Healed Not Healed -Ulcer Cleansing Rinsed/ Rinsed/ Rinsed/ Irrigated with Irrigated with Irrigated with Saline Saline Saline -Foul Odor after Cleansing No No No -Bioengineered Tissue No No No -Topical Lidocaine (%) 4 -Bleeding Controlled with Pressure Pressure Pressure -Treatment Response Procedure Procedure Procedure Tolerated Well Tolerated Well Tolerated Well Pain Scale: 0-10 Numeric Is Patient Pain Free? Yes Yes Yes 06/04/18 13:42 Wound Center Nurse 2 #8 [id number] CALF cluster -Time 13:48 -Correct Patient Yes -Correct Side, Site, Position Yes -Correct Procedure Yes -Procedure Performed Yes -Type of Procedure Debridement -Clinical Debridement Subcutaneous -Post Debridement Size (cm) - Length 8.8 -Post Debridement Size (cm) - Width 27.1 -Post Debridement Size (cm) - Depth 0.2 -Total Square Cm 238.48 -Wound/Ulcer Outcome Not Healed -Ulcer Cleansing Rinsed/ Irrigated with Saline -Foul Odor after Cleansing No -Bioengineered Tissue No -Topical Lidocaine (%) -Bleeding Controlled with Pressure -Treatment Response Procedure Tolerated Well #4 L Lat LE cluster -Time 13:48 -Correct Patient Yes -Correct Side, Site, Position Yes -Correct Procedure Yes -Procedure Performed Yes -Type of Procedure Debridement -Clinical Debridement Subcutaneous -Post Debridement Size (cm) - Length 6.6 -Post Debridement Size (cm) - Width 13.5 -Post Debridement Size (cm) - Depth 0.2 -Total Square Cm 89.10 -Wound/Ulcer Outcome Not Healed -Ulcer Cleansing Rinsed/ Irrigated with Saline -Foul Odor after Cleansing No -Bioengineered Tissue No -Topical Lidocaine (%) -Bleeding Controlled with Pressure -Treatment Response Procedure Tolerated Well Pain Scale: 0-10 Numeric Is Patient Pain Free? Yes Wound debrided: leg Laterality: Right Wound Grade/Stage: grade 1 Type of Debridement: Excisional debridement Anesthesia Used: 5% Lidocaine Gel Depth: in the subcutaneous layer Percentage of wound debrided: 100 Instrument Used: #15 blade Tissue Removed: fibrous, devitalized subcutaneous, biofilm, slough Severity: Fat Layer Exposed Amount of bleeding with debridement: Mild Bleeding Controlled with: Pressure Patient tolerated procedure well - Additional Wound Wound debrided: leg Laterality: Left Wound Grade/Stage: grade 1 Type of Debridement: Excisional debridement Anesthesia Used: 4% Lidocaine Solution Depth: in the subcutaneous layer Percentage of wound debrided: 100 Instrument Used: #15 blade Tissue Removed: fibrous, devitalized subcutaneous, biofilm, slough Severity: Fat Layer Exposed Amount of bleeding with debridement: Mild Bleeding Controlled with: Pressure Patient tolerated procedure: Patient tolerated procedure well Assessment/Plan Active Problems Delayed wound healing (Chronic) Ulcer of left lower extremity with fat layer exposed (Chronic) Right leg pain (Chronic) Left leg pain (Chronic) Swelling of left lower extremity (Chronic) Swelling of right lower extremity (Chronic) Chronic venous insufficiency (Chronic) Lymphedema of left leg (Chronic) Lymphedema of right lower extremity (Chronic) Parkinsons disease (Chronic) Type 2 diabetes mellitus with diabetic polyneuropathy (Chronic) Delayed wound healing (Chronic) Chronic ulcer of right leg with fat layer exposed (Chronic) Malnutrition (Chronic) Assessment: Right leg ulcer with fat layer exposed. Left leg ulcer with fat layer exposed. 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 Venous insufficiency suspected lower extremities. Edema bilateral lower extremities. Diabetes with elevated hemoglobin A1c level. Parkinson's disease. Gait impairment. Obesity. Delayed healing. Malnutrition. Right and left leg pain Plan: I reviewed her case and ongoing treatment plan. Debridement was performed as noted above and in the clinical panel (subcutaneous). 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 It is noted her body habitus is limiting the results. To continue diuresis plan with her primary care physician. Her noninvasive vascular studies demonstrate calcification making this nonconclusive. She did follow-up with Dr. Kunz for this and no intervention is planned. Hardening of the arteries is noted however there is triphasic waveforms to bilateral ankle levels. Today, a multilayer later compression dressing was applied to the lower extremities. She is advised to use CircAid compression in addition at home. A referral to the lymphedema clinic was also provided and potential intervention such as lymphatic massage, other compression pumps and garments were discussed. A compression pump has been received and she was advised to continue this twice daily. To continue absorption dressings. This will be changed by home health a couple times a week and was applied today. She may also want to consider senior care facility placement if she is not able to have the appropriate support at home with home health and family help. She is doing well with this so far and demonstrates less periwound moisture and inflammation. We discussed in depth the importance of edema control. To keep legs elevated above heart while resting. To avoid lying directly on the wound while seated or in bed. To avoid idle standing or sitting for prolonged time. To monitor for signs of infection; she was reassured that this is not noted today. To complete course of antibiotics. The case was previously reviewed and discussed with infectious disease physician, Dr. Rodrigez. She was reassured no local signs of infection are noted today. Labs were previously reviewed from 04/16 including wbc 8.6, esr 53, c reactive protein 30.80, and albumin 2.9; serial labs will be reviewed. To keep pressure off the wounds while lying in bed. surgical debridement with versajet and application of advance wound care product (amniofill) will be considered in the operating room. she is amendable at this time and the surgical consents were signed on an informed basis today. The indications, procedure details, benefits, goals, risks, complications, and anticipated healing time and management were discussed. I answered her questions. She is scheduled for this procedure at [facility] on June 20 at 9 AM. To RTC (wound center) in 1 week with wound center or call sooner if she has questions or concerns. I would also recommend application of a negative pressure therapy back at the time of surgical intervention. I answered all of her questions.
[2018-06-11 13:16] VITALS: BP 123/75; PULSE 99; RESP 20; TEMP 36
--- NOTE | 2018-06-11 13:27 | WC ---
pt c/o weakness and pt drowsy. pt states she has a sinus infection . pt denies any new Rx.
--- NOTE | 2018-06-11 14:30 | PN.PCM_ITS ---
(1) Chronic ulcer of right leg with fat layer exposed Status: Chronic Code(s): L97.912 - 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chronic ulcer of unspecified part of right lower leg with fat layer exposed (2) Ulcer of left lower extremity with fat layer exposed Status: Chronic Code(s): L97.922 - 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chronic ulcer of unspecified part of left lower leg with fat layer exposed (3) Right leg pain Status: Chronic Code(s): M79.604 - Pain in right leg (4) Left leg pain Status: Chronic Code(s): M79.605 - Pain in left leg (5) Swelling of left lower extremity Status: Chronic Code(s): M79.89 - Other specified soft tissue disorders (6) Swelling of right lower extremity Status: Chronic Code(s): M79.89 - Other specified soft tissue disorders (7) Chronic venous insufficiency Status: Chronic Code(s): I87.2 - Venous insufficiency (chronic) (peripheral) (8) Lymphedema of left leg Status: Chronic Code(s): I89.0 - Lymphedema, not elsewhere classified (9) Lymphedema of right lower extremity Status: Chronic Code(s): I89.0 - Lymphedema, not elsewhere classified (10) Parkinsons disease Status: Chronic Code(s): G20 - Parkinson's disease (11) Type 2 diabetes mellitus with diabetic polyneuropathy Status: Chronic Code(s): E11.42 - Type 2 diabetes mellitus with diabetic polyneuropathy (12) Malnutrition Status: Chronic Code(s): E46 - Unspecified protein-calorie malnutrition (13) Delayed wound healing Status: Chronic Code(s): T14.8XXD - Other injury of unspecified body region, subsequent encounter Type of Wound Date of Service: 06/11/18 Chief Complaint: Bilateral lower extremity swelling, edema, and lymphedema; chronic venous insufficiency; bilateral calf ulcerations. History of Wound: This is a 72-year-old female with a long-standing history of chronic swelling, edema, and lymphedema in her lower extremities. She tries to elevate her legs more. She has been under the care of Dr. Kolby Kunz, vascular surgeon, and has undergone staged, bilateral lower extremity venous ablation procedures. Additional arterial intervention was not recommended and it is noted she has triphasic waveforms to bilateral ankles. She is currently using Dry Max and Jimy wraps to her lower extremities. Her left limb has reduced drainage. She has been fitted for CircAid compression garments. She also has pneumatic mechanical compression pumps. She denies fever, chill, nausea, vomiting. she is now amendable to try operating room debridement with advanced product application. She is scheduled to have versa jet debridement and application of advanced wound care product next Saturday at [facility]. She is concerned about her urinary incontinence and that she continues to contaminate her dressings. She asked that we can troubleshoot this concern. Progress of Wound: stable - Physical Exam Vital Signs Temp Pulse Resp BP 96.8 F L 99 20 H 123/75 H 06/11/18 13:16 06/11/18 13:16 06/11/18 13:16 06/11/18 13:16 General: Alert, Oriented x3, Cooperative Extremities: No cyanosis, Capillary Refill Less than 3 Seconds, No Calf Tenderness - Negative Cassie and Benitez sign BILATERAL, Diminished Peripheral Pulses, Edema - Bilateral lower extremities Skin: Ulcer/ Wound - No purulence, no erythema, no odor, no necrosis. The wound edges are devitalized with copious slough and fibrous tissue. The peripheral skin is hairless and atrophic. Wound Measurements and Assessment WC - Nurse 1 - General Ulcer Measurement Start: 05/14/18 13:56 Freq: Status: Active Protocol: Activity Type Activity Date Activity User E-Sign Co-Sign Detail Recorded Client Recorded Date Recorded By Document 06/11/18 13:16 RB [id number] 06/11/18 13:27 RB 06/11/18 13:16 Wound Center Nurse 1 [Ulcer Assessment] #8 [id number] CALF cluster -Combined with other wound No -Current Size (cm) - Length 27.5 -Current Size (cm) - Width 10 -Current Size (cm) - Depth 0.2 -Total Square Cm 275.0 -Photo Taken No -Tunneling No -Undermining/Tunneling No -Circular Undermining No -Exudate Amt Large (67-100%) -Exudate Type Serosanguineous -Wound Margin Distinct, Outline Attached -Granulation Amt Medium (34-66%) -Granulation Quality Jardine Red -Slough/Fibrin Yes -Necrosis Amt Medium (34-66%) -Necrotic Tissue Type Adherent Slough -Structure Exposed N/A -Texture (Vickie-wound Skin Appearance) Assessed -Moisture (Vickie-wound Skin Appearance Assessed ) -Color (Vickie-wound Skin Appearance) Erythema -Temperature (Vickie-wound Skin No Abnormality Appearance) (Pt Warm) -Tenderness on Palpation (Vickie-wound No Skin Appearance) -Ulcer Cleansing Wound Cleanser -Foul Odor after Cleansing No -Anesthetic Used 4% Lidocaine Solution #4 L Lat LE cluster -Combined with other wound No -Current Size (cm) - Length 28.5 -Current Size (cm) - Width 7.2 -Current Size (cm) - Depth 0.3 -Total Square Cm 205.20 -Photo Taken No -Tunneling No -Undermining/Tunneling No -Circular Undermining No -Exudate Amt Large (67-100%) -Exudate Type Serosanguineous -Wound Margin Thickened & Rolled Under -Granulation Amt Medium (34-66%) -Granulation Quality Jardine Red -Slough/Fibrin Yes -Necrosis Amt Medium (34-66%) -Necrotic Tissue Type Adherent Slough -Structure Exposed N/A -Texture (Vickie-wound Skin Appearance) Assessed -Moisture (Vickie-wound Skin Appearance Assessed ) -Color (Vickie-wound Skin Appearance) Erythema -Temperature (Vickie-wound Skin No Abnormality Appearance) (Pt Warm) -Tenderness on Palpation (Vickie-wound No Skin Appearance) -Ulcer Cleansing Wound Cleanser -Foul Odor after Cleansing No -Anesthetic Used 4% Lidocaine Solution [Edema Assessment] -Lower Limb Edema Present Yes -Right Calf (cm) 64 -Right Ankle (cm) 25.5 -Left Calf (cm) 58.5 -Left Ankle (cm) 25 06/11/18 13:27 Wound Center by Betty Cherry pt c/o weakness and pt drowsy. pt states she has a sinus infection . pt denies any new Rx. Initialized on 06/11/18 13:27 - END OF NOTE WC - Nurse 2 - General Ulcer CM Notes Start: 05/14/18 13:56 Freq: Status: Active Protocol: Activity Type Activity Date Activity User E-Sign Co-Sign Detail Recorded Client Recorded Date Recorded By Document 06/11/18 13:31 TM [id number] 06/11/18 13:44 TM 06/11/18 13:31 Wound Center Nurse 2 [Procedure/Treatment] #8 [id number] CALF cluster -Time 13:39 -Correct Patient Yes -Correct Side, Site, Position Yes -Correct Procedure Yes -Procedure Performed Yes -Type of Procedure Debridement -Clinical Debridement Subcutaneous -Post Debridement Size (cm) - Length 27.6 -Post Debridement Size (cm) - Width 10.0 -Post Debridement Size (cm) - Depth 0.2 -Total Square Cm 276.00 -Wound/Ulcer Outcome Not Healed -Ulcer Cleansing Rinsed/ Irrigated with Saline -Foul Odor after Cleansing No -Bioengineered Tissue No -Topical Lidocaine (%) 4 -Bleeding Controlled with Pressure -Treatment Response Procedure Tolerated Well #4 L Lat LE cluster -Time 13:39 -Correct Patient Yes -Correct Side, Site, Position Yes -Correct Procedure Yes -Procedure Performed Yes -Type of Procedure Debridement -Clinical Debridement Subcutaneous -Post Debridement Size (cm) - Length 28.6 -Post Debridement Size (cm) - Width 7.3 -Post Debridement Size (cm) - Depth 0.3 -Total Square Cm 208.78 -Wound/Ulcer Outcome Not Healed -Ulcer Cleansing Rinsed/ Irrigated with Saline -Foul Odor after Cleansing No -Bioengineered Tissue No -Topical Lidocaine (%) 4 -Bleeding Controlled with Pressure -Treatment Response Procedure Tolerated Well [See Physician Procedure note for Specifics] Pain Scale: 0-10 Numeric [Pain] -Is Patient Pain Free? Yes Musculoskeletal: No Tenderness to Palpation of Joints or Extremities, Muscle Wasting Neurological: Sensory exam intact to light touch and pain Psych/Mental Status: Normal Affect, Appropriate Debridement Note Post-Debridement Measurements/Treatment WC - Nurse 2 - General Ulcer CM Notes Start: 05/14/18 13:56 Freq: Status: Active Protocol: Activity Type Activity Date Activity User E-Sign Co-Sign Detail Recorded Client Recorded Date Recorded By Document 05/14/18 14:38 JF [id number] 05/14/18 14:39 JF Document 05/21/18 14:03 DV [id number] 05/21/18 14:16 DV Document 05/28/18 14:14 TM [id number] 05/28/18 14:16 TM Document 06/04/18 13:42 JF [id number] 06/04/18 13:49 JF Document 06/11/18 13:31 TM [id number] 06/11/18 13:44 TM 05/14/18 05/21/18 05/28/18 14:38 14:03 14:14 Wound Center Nurse 2 #8 [id number] CALF cluster -Time 14:38 14:05 14:14 -Correct Patient Yes Yes Yes -Correct Side, Site, Position Yes Yes Yes -Correct Procedure Yes Yes Yes -Procedure Performed Yes Yes Yes -Type of Procedure Debridement Debridement Debridement -Clinical Debridement Subcutaneous Subcutaneous Subcutaneous -Post Debridement Size (cm) - Length 10.3 24.5 11.5 -Post Debridement Size (cm) - Width 24.6 9.0 26.2 -Post Debridement Size (cm) - Depth 0.2 0.3 0.2 -Total Square Cm 253.38 220.50 301.30 -Wound/Ulcer Outcome Not Healed Not Healed Not Healed -Ulcer Cleansing Rinsed/ Rinsed/ Rinsed/ Irrigated with Irrigated with Irrigated with Saline Saline Saline -Foul Odor after Cleansing No No No -Bioengineered Tissue No No No -Topical Lidocaine (%) 4 -Bleeding Controlled with Pressure Pressure Pressure -Treatment Response Procedure Procedure Procedure Tolerated Well Tolerated Well Tolerated Well #4 L Lat LE cluster -Time 14:39 14:07 14:14 -Correct Patient Yes Yes Yes -Correct Side, Site, Position Yes Yes Yes -Correct Procedure Yes Yes Yes -Procedure Performed Yes Yes Yes -Type of Procedure Debridement Debridement Debridement -Clinical Debridement Subcutaneous Subcutaneous Subcutaneous -Post Debridement Size (cm) - Length 6.4 13.5 7.1 -Post Debridement Size (cm) - Width 9.6 7.0 13.6 -Post Debridement Size (cm) - Depth 0.3 0.3 0.2 -Total Square Cm 61.44 94.50 96.56 -Wound/Ulcer Outcome Not Healed Not Healed Not Healed -Ulcer Cleansing Rinsed/ Rinsed/ Rinsed/ Irrigated with Irrigated with Irrigated with Saline Saline Saline -Foul Odor after Cleansing No No No -Bioengineered Tissue No No No -Topical Lidocaine (%) 4 -Bleeding Controlled with Pressure Pressure Pressure -Treatment Response Procedure Procedure Procedure Tolerated Well Tolerated Well Tolerated Well Pain Scale: 0-10 Numeric Is Patient Pain Free? Yes Yes Yes 06/04/18 06/11/18 13:42 13:31 Wound Center Nurse 2 #8 [id number] CALF cluster -Time 13:48 13:39 -Correct Patient Yes Yes -Correct Side, Site, Position Yes Yes -Correct Procedure Yes Yes -Procedure Performed Yes Yes -Type of Procedure Debridement Debridement -Clinical Debridement Subcutaneous Subcutaneous -Post Debridement Size (cm) - Length 8.8 27.6 -Post Debridement Size (cm) - Width 27.1 10.0 -Post Debridement Size (cm) - Depth 0.2 0.2 -Total Square Cm 238.48 276.00 -Wound/Ulcer Outcome Not Healed Not Healed -Ulcer Cleansing Rinsed/ Rinsed/ Irrigated with Irrigated with Saline Saline -Foul Odor after Cleansing No No -Bioengineered Tissue No No -Topical Lidocaine (%) 4 -Bleeding Controlled with Pressure Pressure -Treatment Response Procedure Procedure Tolerated Well Tolerated Well #4 L Lat LE cluster -Time 13:48 13:39 -Correct Patient Yes Yes -Correct Side, Site, Position Yes Yes -Correct Procedure Yes Yes -Procedure Performed Yes Yes -Type of Procedure Debridement Debridement -Clinical Debridement Subcutaneous Subcutaneous -Post Debridement Size (cm) - Length 6.6 28.6 -Post Debridement Size (cm) - Width 13.5 7.3 -Post Debridement Size (cm) - Depth 0.2 0.3 -Total Square Cm 89.10 208.78 -Wound/Ulcer Outcome Not Healed Not Healed -Ulcer Cleansing Rinsed/ Rinsed/ Irrigated with Irrigated with Saline Saline -Foul Odor after Cleansing No No -Bioengineered Tissue No No -Topical Lidocaine (%) 4 -Bleeding Controlled with Pressure Pressure -Treatment Response Procedure Procedure Tolerated Well Tolerated Well Pain Scale: 0-10 Numeric Is Patient Pain Free? Yes Yes Wound debrided: leg Laterality: Right Wound Grade/Stage: grade 1 Type of Debridement: Excisional debridement Anesthesia Used: 4% Lidocaine Solution Depth: in the subcutaneous layer Percentage of wound debrided: 60 Instrument Used: #15 blade Tissue Removed: fibrous, devitalized subcutaneous, biofilm, slough Severity: Fat Layer Exposed Amount of bleeding with debridement: Mild Bleeding Controlled with: Compression and gauze Patient did not tolerate procedure well - Additional Wound Wound debrided: leg Laterality: Left Wound Grade/Stage: grade 1 Type of Debridement: Excisional debridement Anesthesia Used: 4% Lidocaine Solution Depth: in the subcutaneous layer Percentage of wound debrided: 60 Instrument Used: #15 blade Tissue Removed: fibrous, devitalized subcutaneous, biofilm, slough Severity: Fat Layer Exposed Amount of bleeding with debridement: Mild Bleeding Controlled with: Pressure Patient tolerated procedure: Patient tolerated procedure well Assessment/Plan Assessment: Right leg ulcer with fat layer exposed. Left leg ulcer with fat layer exposed. 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 Venous insufficiency suspected lower extremities. Edema bilateral lower extremities. Diabetes with elevated hemoglobin A1c level. Parkinson's disease. Gait impairment. Obesity. Delayed healing. Malnutrition. Right and left leg pain Plan: I reviewed her case and ongoing treatment plan. Debridement was performed as noted above and in the clinical panel (subcutaneous). 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 It is noted her body habitus is limiting the results. To continue diuresis plan with her primary care physician. Her noninvasive vascular studies demonstrate calcification making this nonconclusive. She did follow-up with Dr. Kunz for this and no intervention is planned. Hardening of the arteries is noted however there is triphasic waveforms to bilateral ankle levels. Today, a multilayer later compression dressing was applied to the lower extremities. She is advised to use CircAid compression in addition at home. A referral to the lymphedema clinic was also provided and potential intervention such as lymphatic massage, other compression pumps and garments were discussed. A compression pump has been received and she was advised to continue this twice daily. To continue absorption dressings. This will be changed by home health a couple times a week and was applied today. She may also want to consider [facility] facility placement if she is not able to have the appropriate support at home with home health and family help. She is doing well with this so far and demonstrates less periwound moisture and inflammation. We discussed in depth the importance of edema control. To keep legs elevated above heart while resting. To avoid lying directly on the wound while seated or in bed. To avoid idle standing or sitting for prolonged time. To monitor for signs of infection; she was reassured that this is not noted today. To keep pressure off the wounds while lying in bed. Surgical debridement with versajet and application of advance wound care product (amniofill) is scheduled for the operating room on June 20, 2018. I also plan to apply wound VAC to the right leg. She is amendable at this time and the surgical consents were signed on an informed basis already. The indications, procedure details, benefits, goals, risks, complications, and anticipated healing time and management were discussed. I answered her questions. Special precautions will be made to apply a seal around the proximal aspect of the dressings in the event that her urinary incontinence contaminates this area she can simply remove this out a protective barrier. To RTC (wound center) in 1 week with wound center or call sooner if she has questions or concerns.
== END 2018-06-11 23:59 ==
LOC: WC 13:00
PROVIDERS: Family Provider Internal Medicine; PCP Internal Medicine; Visit Provider Podiatrist
DX: E11.622 Type 2 diabetes mellitus with other skin ulcer (principal); I87.2 Venous insufficiency (chronic) (peripheral); E11.42 Type 2 diabetes mellitus with diabetic polyneuropathy; I89.0 Lymphedema, not elsewhere classified; L97.822 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chronic ulcer of other part of left lower leg with fat layer exposed; L97.812 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chronic ulcer of other part of right lower leg with fat layer exposed; M79.605 Pain in left leg; M79.604 Pain in right leg; G20 Parkinson's disease; R32 Unspecified urinary incontinence
CPT/HCPCS: 11042; 11045; 99213; G0463

== ENCOUNTER 2018-06-14 11:32 | Inpatient (IN) | payer MEDICARE, OTHER, SELFPAY ==
[2018-06-14 11:33] VITALS: BP 98/59; PULSE 92; RESP 22; TEMP 36.7; O2SAT 99; BMI 47.0
--- NOTE | 2018-06-14 11:45 | EKG12_ITS ---
Test Reason : WEAKNESS Blood Pressure : / mmHG Vent. Rate : 083 BPM Atrial Rate : 083 BPM P-R Int : 178 ms QRS Dur : 094 ms QT Int : 362 ms P-R-T Axes : 012 007 032 degrees QTc Int : 425 ms Normal sinus rhythm Normal ECG Confirmed by SHAYY MCKENZIE, SRINATH ([id number]), sports editor ABBI BLANK ([id number]) on 06/16/2018 3:26:03 PM Referred By: PAM Confirmed By:SRINATH LUCAS MD
--- NOTE | 2018-06-14 11:45 | RAD_ITS ---
STUDY: X-RAY CHEST REASON FOR EXAM: Female, 72 years old. Weakness and lethargy TECHNIQUE: Single AP portable view of the chest. COMPARISON: 04/04/2016 FINDINGS: The lungs are clear and expanded. There is no demonstrated pleural abnormality. Normal size heart. Normal mediastinum and annalee. Normal visualized pulmonary arteries. Normal visualized aortic arch and descending thoracic aorta. Normal visualized thoracic spine. Normal visualized ribs, clavicles, and shoulders. There is no demonstrated abnormality of the visualized soft tissue structures of the upper abdomen. RAD/Chest 1 View (Portable) IMPRESSION: Normal x-ray examination of the chest. Electronically Signed: Henry Khan DO at 12:19 EDT Tel , Service support ,
--- NOTE | 2018-06-14 11:49 | NURSING ---
NO OLD EKGS
[2018-06-14 12:20] LABS: Absolute Lymphocyte Count 0.61 X10^3/ul (0.83-4.51); Absolute Neutrophil Count 18.1 X10^3/uL (2.0-7.7); Basophil# 0.02 X10^3/uL; Basophil% 0.1 % (0-1); Eosinophil# 0.19 X10^3/uL; Eosinophils% 0.9 % (0-5); Hematocrit 30.8 % (37-47); Hemoglobin 9.7 g/dl (12.0-15.0); Lymphocyte # 0.61 X10^3/ul (4.0); Mean Corp Hgb Conc 31.5 g/gl (32-36); Mean Corpuscular Hgb 26.2 pg (27.0-32.0); Mean Corpuscular Volume 83.2 fL (81-99); Mean Platelet Vol. 8.3 fl (6.2-12.0); Monocyte# 1.25 X10^3/uL; Monocyte% 6.2 % (0-10); Neutrophil # 18.12 X10^3/uL (2.7-7.7); Neutrophil % 89.5 % (47-70); POSITIVE COUNT NO; POSITIVE DIFFERENTIAL NO; POSITIVE MORPHOLOGY NO; Platelet Count 342 K/mm3 (150-450); RBC Distribution Width CV 15.2 % (11.6-14.6); RBC Distribution Width SD 46.7 fl (35.1-43.9); White Blood Count 20.3 K/mm3 (4.4-11.0)
[2018-06-14 12:30] LABS: ALB/GLOB Ratio 0.4 RATIO (0.9-2.4); AST(SGOT) 10 U/L (15-37); Alanine Aminotransfer ALT/SGPT 7 U/L (13-56); Albumin, Serum 2.2 g/dL (3.2-5.0); Alkaline Phosphatase 160 U/L (45-117); Anion Gap 12 (5-15); BUN 48 mg/dL (7-18); BUN/Creat Ratio 30.8 RATIO (10-20); Calcium,Total 8.4 mg/dL (8.5-10.1); Chloride 97 mmol/L (98-107); Creatinine, Serum 1.56 mg/dL (0.55-1.02); EST Glomerular Filtration Rate 35 mL/min (>60); Est Glom Filt Rate - Afr Amer 42 mL/min (>60); Estimated Creatinine Clearance 23.76 ml/min; Globulin 5.8 g/dL (2.2-4.2); Glucose 135 mg/dL (74-106); Potassium 3.6 mmol/L (3.5-5.1); Sodium Level 132 mmol/L (136-145)
[2018-06-14 12:42] LABS: Lactic Acid 1.1 mmol/L (0.4-2.0)
[2018-06-14] MEDS: 0.9% Normal Saline 1,000 ML 150 ML IV (12:45)
[2018-06-14 12:56] LABS: Color, Urine Yellow (Yellow); Glucose, Dipstick Normal (Normal); Ketone-Dipstick Negative (Negative); Leukocyte Esterase-Dipstick 500 /ul (Negative); Nitrite-Dipstick Positive (Negative); Occult Blood-Urine 50 /ul (Negative); Protein-Dipstick 30 mg/dl (Negative); Specific Gravity, Urine 1.015 (1.002-1.030); Urine Bilirubin Dipstick Negative (Negative); Urine Clarity Cloudy (Clear); Urine Urobilinogen Normal (Normal)
[2018-06-14 13:05] LABS: Bacteria 3+ /hpf (None Seen); Mucous, Urine 1+ /hpf (<or=2+); Red Blood Cells-Urine 0-5 SEEN /hpf (0-5); Squamous Epithelial Cells - UA 0-5 SEEN /hpf (5-10); White Blood Cells 50-100 SEEN /hpf (0-5)
--- NOTE | 2018-06-14 13:14 | ED.DCSUM_ITS ---
- ER Visit Summary Date of Service: 06/14/18 Chief Complaint: [Weakness] History of Present Illness: The patient is a 72 F [presents the emergency department generalized weakness for the last 4 days. Per family member patient's not been able to care for herself and is having a hard time lifting from a chair. Patient not eating or drinking. Patient complains of exertional dyspnea. She denies any chest pain. She has had no fevers. Patient has history of some chronic urinary incontinence but denies any dysuria. Patient does have a history of Parkinson's and states that she has been compliant with her medications. Patient also complains of leg edema for the last year and she is actually scheduled to have surgery next week to have wound vacs applied to her lower extremities.] Physical Examination: [HEENT-PERRLA, EOMI. Cranial nerves II through XII grossly intact. TMs clear. Mucous membranes moist. No adenopathy. Cardiovascular-regular rate and rhythm without murmur or ectopy Lungs-clear to auscultation, chest wall stable without crepitus or subcu emphysema Abdomen-normoactive bowel sounds, soft, nontender, no rebound or rigidity, no peritoneal signs. Extremities-intact ?4, normal range of motion, normal pulses, atraumatic]. Patient does have weeping erythematous wounds to both lower extremities below the knee. Patient does have erythema. Test Results: [EKG obtained on arrival showed a sinus rhythm with a ventricular rate of 83 bpm with no acute I segment changes. CBC with differential obtained showed an elevated white blood cell count of 20,000, hemoglobin 9.7, hematocrit 31. Chemistries unremarkable. BUN was 48 and creatinine 1.56. LFTs unremarkable. Troponin was less than 0.015. Lactate was normal at 1.1. Chest x-ray was normal. Urinalysis obtained showed 500 leukocyte esterase, positive nitrites, 50-100 WBCs, and +3 bacteria.] Emergency Department Course and Treatment: [Patient had urine culture sent and also blood cultures. Patient was started on Rocephin 1 g IV.] Treatment Plan: [Admit] Disposition: [Admit] Impression: [Generalized weakness UTI Chronic leg wounds] This note was generated with [employer] software. It may contain incorrect words, spelling, and punctuation that were not noted in review of the chart prior to signing ED Disposition - Plan for ED Patient: Chief Complaint: Weakness Referrals: Laney Horvath DO [Primary Care Provider] -
--- NOTE | 2018-06-14 13:26 | NURSING ---
DR MCKEON FOR DR OROZCO
--- NOTE | 2018-06-14 13:37 | NURSING ---
323 UTI, WEAKNESS, DEHYDRATION LINDA
[2018-06-14] MEDS: Ceftriaxone 1 GM/50 ML BAG IV (13:47)
--- NOTE | 2018-06-14 13:54 | PCM.HP.STD ---
<Nicolas Rg - Last Filed: 06/14/18 13:54> Problem List (1) Sepsis Status: Acute (2) СВЕТЛАНА (acute kidney injury) Status: Acute (3) UTI (urinary tract infection) Status: Acute (4) Lymphedema Status: Chronic (5) Morbid obesity Status: Chronic History of Present Illness Date of Admission: 06/14/18 Chief Complaint: weakness The patient is a 72 year old F with a hx of morbid obesity, lymphedema for which she follows Dr. Interiano at the wound center, parkinsons, diet controlled DMt2, HTN, who presents to the ER with c/o weakness. She states her family made her come in because since saturday she has been fatigued and tired, and so weak that she cannot even stand up with the help of her lift chair. She appears to have a UTI in the ER, however she denies dysuria, urgency, fevers or chills. She is chronically incontinent of urine. She denies recent antibiotic use. She denies abdominal pain. She denies frequent UTIs. [] Past Medical History Past Medical History (Chronic Problems): Chronic Problems Delayed wound healing (Chronic) Lymphedema (Chronic) Morbid obesity (Chronic) Cellulitis of right leg (Chronic) Ulcer of left lower extremity with fat layer exposed (Chronic) Right leg pain (Chronic) Left leg pain (Chronic) Swelling of left lower extremity (Chronic) Swelling of right lower extremity (Chronic) Edema, leg (Chronic) Chronic venous insufficiency (Chronic) Dependent edema (Chronic) Venous ulcer of left leg (Chronic) Venous ulcer of right leg (Chronic) Lymphedema of left leg (Chronic) Lymphedema of right lower extremity (Chronic) Obesity (BMI 30-39.9) (Chronic) Parkinsons disease (Chronic) Immobility (Chronic) Urinary incontinence (Chronic) Cellulitis of leg, right (Chronic) Tinea unguium (Chronic) Type 2 diabetes mellitus with diabetic polyneuropathy (Chronic) Tinea unguium (Chronic) Delayed wound healing (Chronic) Tibialis posterior dysfunction (Chronic) Walking difficulty due to ankle and foot (Chronic) Pain, foot, left, chronic (Chronic) Left tibialis posterior tendonitis (Chronic) Ulcer of left lower extremity with fat layer exposed (Chronic) Left ankle pain (Chronic) Left tibialis tendonitis (Chronic) Chronic ulcer of right leg with fat layer exposed (Chronic) Lymphedema of lower extremity (Chronic) Venous insufficiency (chronic) (peripheral) (Chronic) Diabetes mellitus with polyneuropathy (Chronic) 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ulcer of right lower extremity with fat layer exposed (Chronic) Ulcer of right leg (Chronic) Malnutrition (Chronic) Edema leg (Chronic) Allergies No Known Allergies Allergy (Verified 06/14/18 11:33) Home Medications: Ambulatory Orders Medication Instructions Recorded Carbidopa/Levodopa 2 mg PO TID 04/04/16 [Carbidopa-Levodopa 25-100 Tab] Diphenoxylate/Atrop [Lomotil] 1 tablet PO BID PRN PRN 04/04/16 Ropinirole HCl [Requip Xl] 8 mg PO DAILY 04/04/16 Ibuprofen [Ibu] 800 mg PO PRN PRN 06/13/18 Carbidopa/Levodopa 25/100 [Sinemet] 1 tablet PO TIDAC 06/14/18 Carbidopa/Levodopa [Sinemet Cr 1 each PO 06/14/18 50-200 Tablet] Citalopram [Celexa] 10 mg PO DAILY 06/14/18 Naproxen [Naprosyn] 500 mg PO DAILY PRN PRN 06/14/18 Smz/Tmp Ds [Bactrim Ds] 1 tablet PO BID 06/14/18 Surgical History: total knee arthroplasty - bilateral Psychiatric History: Anxiety [employer] History: No pertinent [employer] history Smoking Status: Never smoker Review of Systems Constitutional: Reports: Weakness, Fatigue. Denies: Chills, Fever, Weight Change HEENT: Denies: Head Aches, Sinus Congestion, Sinus Drainage Cardiovascular: Denies: Chest Pain, Palpitations Respiratory: Denies: Cough, Shortness of breath at rest, Sputum production Gastrointestinal: Denies: Abdominal Pain, Nausea, Vomiting Genitourinary: Denies: Dysuria Musculoskeletal: Denies: Joint Pain, Joint Tenderness Skin: Denies: Rash, Wounds Neurological: Denies: Numbness, Tingling, Focal weakness Psychiatric: Denies: Anxiety, Depression, Homicidal Ideations, Suicidal Ideations Hematologic/ Lymphatic: Denies: Easy Bruising, Easy Bleeding VTE Information - Inpt Only VTE Present on Admission: Yes VTE Mechan Device Prophylaxis: None VTE Pharm Prophylaxis ordered?: Yes Patient Problems: Active and Suspected Problems Sepsis (Acute) UTI (urinary tract infection) (Acute) СВЕТЛАНА (acute kidney injury) (Acute) - Physical Exam General: Alert, Oriented x3, Cooperative HEENT: Atraumatic, PERRLA, EOMI, Normocephalic Neck: Supple, No JVD, Negative Carotid Bruits Lungs: Clear to auscultation, Normal air movement Cardiovascular: Regular rate, No murmurs Abdomen: Bowel Sounds Present, Soft, Non Tender Extremities: Capillary Refill Less than 3 Seconds, - - severe lymphedema. Skin: No rashes, No breakdown Musculoskeletal: No Tenderness to Palpation of Joints or Extremities Neurological: Cranial nerves II-XII grossly intact Psych/Mental Status: Normal Affect, Appropriate, Alert and oriented to time, place, person, mood and affect Vital Signs Temp Pulse Resp BP Pulse Ox 98.0 F 92 22 H 98/59 L 99 06/14/18 11:33 06/14/18 11:33 06/14/18 11:33 06/14/18 11:33 06/14/18 11:33 Oxygen Delivery Method Room Air Weight: 240 lb 8.389 oz Body Mass Index (BMI) 47.0 Laboratory Tests Past 24 Hrs 06/14/18 06/14/18 06/14/18 11:55 11:55 11:55 WBC 20.3 H RBC 3.70 L Hgb 9.7 L Hct 30.8 L MCV 83.2 MCH 26.2 L MCHC 31.5 L RDW 15.2 H RDW Differential 46.7 H Plt Count 342 MPV 8.3 Immature Gran % (Auto) 0.300 Neut % (Auto) 89.5 H Lymph % (Auto) 3.[address] % (Auto) 6.2 Eos % (Auto) 0.9 Baso % (Auto) 0.1 Absolute Neuts (auto) 18.1 H Absolute Lymphs (auto) 0.61 L Total Counted Not Reportable Sodium 132 L Potassium 3.6 Chloride 97 L Carbon Dioxide 23.0 Anion Gap 12 BUN 48 H Creatinine 1.56 H Estim Creat Clear Calc 23.76 Est GFR (MDRD) Af Amer 42 L Est GFR (MDRD) Non-Af 35 L BUN/Creatinine Ratio 30.8 H Glucose 135 H Lactic Acid 1.1 Calcium 8.4 L Total Bilirubin 0.40 AST 10 L ALT 7 L Alkaline Phosphatase 160 H Troponin I < 0.015 Total Protein 8.0 Albumin 2.2 L Globulin 5.8 H Albumin/Globulin Ratio 0.4 L Urine Color Urine Clarity Urine pH Ur Specific [place] Urine Protein Urine Glucose (UA) Urine Ketones Urine Occult Blood Urine Nitrite Urine Bilirubin Urine Urobilinogen Ur Leukocyte Esterase Urine RBC Urine WBC Ur Squamous Epith Cells Urine Bacteria Urine Mucus 06/14/18 12:37 WBC RBC Hgb Hct MCV MCH MCHC RDW RDW Differential Plt Count MPV Immature Gran % (Auto) Neut % (Auto) Lymph % (Auto) [place] % (Auto) Eos % (Auto) Baso % (Auto) Absolute Neuts (auto) Absolute Lymphs (auto) Total Counted Sodium Potassium Chloride Carbon Dioxide Anion Gap BUN Creatinine Estim Creat Clear Calc Est GFR (MDRD) Af Amer Est GFR (MDRD) Non-Af BUN/Creatinine Ratio Glucose Lactic Acid Calcium Total Bilirubin AST ALT Alkaline Phosphatase Troponin I Total Protein Albumin Globulin Albumin/Globulin Ratio Urine Color Yellow Urine Clarity Cloudy Urine pH 5.0 Ur Specific [place] 1.015 Urine Protein 30 H Urine Glucose (UA) Normal Urine Ketones Negative Urine Occult Blood 50 H Urine Nitrite Positive H Urine Bilirubin Negative Urine Urobilinogen Normal Ur Leukocyte Esterase 500 H Urine RBC 0-5 SEEN Urine WBC 50-100 SEEN Ur Squamous Epith Cells 0-5 SEEN Urine Bacteria 3+ Urine Mucus 1+ Assessment/Plan All Active Problems Sepsis (Acute) UTI (urinary tract infection) (Acute) СВЕТЛАНА (acute kidney injury) (Acute) Debility (Acute) Walking difficulty due to ankle and foot (Acute) Physical deconditioning (Acute) Toe pain, left (Acute) Toe pain, right (Acute) 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ulcer of right lower extremity with necrosis of muscle (Acute) 1. Acute sepsis 2/2 UTI - evidenced by + UA, leukocytosis, pulse >90, negative LA. Continue rocephin. Urine culture sent. Cxr neg. 2. СВЕТЛАНА 2/2 above - IV NaCl 3. Lymphedema - c/s wound nurse. Follows Fascione. Has a planned surgery for vac placement on Saturday. 4. Parkinson with worsening of debility - continue sinemet. PTOT consults. 5. Hx DMt2 with morbid obesity - she is not on any medication fo this at this time. 6. Anx/Depression - continue home meds. DVT ppx: heparin DC planning: PTOT, may need placed. Lives alone and cannot walk This patient was seen by Nicolas Rg PA-C under the supervision of Doctor Efrani. <Rolando Zuniga F - Last Filed: 06/14/18 17:21> History of Present Illness The patient is a 72 year old F [] Past Medical History Allergies No Known Allergies Allergy (Verified 06/14/18 11:33) - Physical Exam Vital Signs Temp Pulse Resp BP Pulse Ox 99.1 F 90 16 110/56 L 98 06/14/18 14:39 06/14/18 14:39 06/14/18 14:39 06/14/18 14:39 06/14/18 14:39 Oxygen Delivery Method Room Air Weight: 200 lb Body Mass Index (BMI) 37.8 Laboratory Tests Past 24 Hrs 06/14/18 06/14/18 06/14/18 11:55 11:55 11:55 WBC 20.3 H RBC 3.70 L Hgb 9.7 L Hct 30.8 L MCV 83.2 MCH 26.2 L MCHC 31.5 L RDW 15.2 H RDW Differential 46.7 H Plt Count 342 MPV 8.3 Immature Gran % (Auto) 0.300 Neut % (Auto) 89.5 H Lymph % (Auto) 3.[address] [place] % (Auto) 6.2 Eos % (Auto) 0.9 Baso % (Auto) 0.1 Absolute Neuts (auto) 18.1 H Absolute Lymphs (auto) 0.61 L Total Counted Not Reportable Sodium 132 L Potassium 3.6 Chloride 97 L Carbon Dioxide 23.0 Anion Gap 12 BUN 48 H Creatinine 1.56 H Estim Creat Clear Calc 23.76 Est GFR (MDRD) Af Amer 42 L Est GFR (MDRD) Non-Af 35 L BUN/Creatinine Ratio 30.8 H Glucose 135 H Lactic Acid 1.1 Calcium 8.4 L Total Bilirubin 0.40 AST 10 L ALT 7 L Alkaline Phosphatase 160 H Troponin I < 0.015 Total Protein 8.0 Albumin 2.2 L Globulin 5.8 H Albumin/Globulin Ratio 0.4 L Urine Color Urine Clarity Urine pH Ur Specific [place] Urine Protein Urine Glucose (UA) Urine Ketones Urine Occult Blood Urine Nitrite Urine Bilirubin Urine Urobilinogen Ur Leukocyte Esterase Urine RBC Urine WBC Ur Squamous Epith Cells Urine Bacteria Urine Mucus 06/14/18 12:37 WBC RBC Hgb Hct MCV MCH MCHC RDW RDW Differential Plt Count MPV Immature Gran % (Auto) Neut % (Auto) Lymph % (Auto) [place] % (Auto) Eos % (Auto) Baso % (Auto) Absolute Neuts (auto) Absolute Lymphs (auto) Total Counted Sodium Potassium Chloride Carbon Dioxide Anion Gap BUN Creatinine Estim Creat Clear Calc Est GFR (MDRD) Af Amer Est GFR (MDRD) Non-Af BUN/Creatinine Ratio Glucose Lactic Acid Calcium Total Bilirubin AST ALT Alkaline Phosphatase Troponin I Total Protein Albumin Globulin Albumin/Globulin Ratio Urine Color Yellow Urine Clarity Cloudy Urine pH 5.0 Ur Specific [place] 1.015 Urine Protein 30 H Urine Glucose (UA) Normal Urine Ketones Negative Urine Occult Blood 50 H Urine Nitrite Positive H Urine Bilirubin Negative Urine Urobilinogen Normal Ur Leukocyte Esterase 500 H Urine RBC 0-5 SEEN Urine WBC 50-100 SEEN Ur Squamous Epith Cells 0-5 SEEN Urine Bacteria 3+ Urine Mucus 1+ Code Visit Addendum: Dr. Zuniga I personally examined the patient and reviewed the chart. I agree with the above. 72-year-old female with a history of morbid obesity, lymphedema, Parkinson's, type 2 diabetes, hypertension who presented with weakness to the ER. The weakness weakness and fatigue started on Saturday and has not improved. Her family made her come in and in the ER she was found to have a UTI. In the ER she has a leukocytosis as well as tachypnea with a source therefore she is septic with a normal lactate. We will continue her on Rocephin and IV fluids. We will also consult the wound nurse since her lymphedema is chronic she has been following at the wound center with Dr. Interiano, and has a planned surgery for VAC placement on Saturday. Blood and urine cultures are pending area Inpatient E&M: 37921 Init Hosp L3
[2018-06-14 14:36] VITALS: BMI 37.8
[2018-06-14 14:39] VITALS: BP 110/56; PULSE 90; RESP 16; TEMP 37.3; O2SAT 98
[2018-06-14] MEDS: 0.9% Normal Saline 1,000 ML 125 ML IV (17:55)
[2018-06-14 19:56] VITALS: BP 117/64; PULSE 98; RESP 16; TEMP 37.4; O2SAT 97
[2018-06-14] MEDS: Pramipexole Di-HCl 0.25 MG Tablet 0.75 MG PO (22:02)
[2018-06-14] MEDS: Heparin Injection (Vial) 5,000 UNIT/ML VIAL 5000 UNIT SC (22:02)
[2018-06-15] MEDS: 0.9% Normal Saline 1,000 ML 125 ML IV ×3 (01:10→18:34)
[2018-06-15 01:55] VITALS: BP 104/48; PULSE 79; RESP 16; TEMP 37.1; O2SAT 98
[2018-06-15] MEDS: Pramipexole Di-HCl 0.25 MG Tablet 0.75 MG PO ×3 (05:26→21:24)
[2018-06-15 07:08] LABS: Absolute Lymphocyte Count 0.56 X10^3/ul (0.83-4.51); Basophil# 0.02 X10^3/uL; Basophil% 0.1 % (0-1); Eosinophils% 1.3 % (0-5); Hematocrit 25.4 % (37-47); Hemoglobin 7.9 g/dl (12.0-15.0); Lymphocyte # 0.56 X10^3/ul (4.0); Lymphocyte % 3.7 % (19-41); Mean Corp Hgb Conc 31.1 g/gl (32-36); Mean Corpuscular Hgb 26.2 pg (27.0-32.0); Mean Corpuscular Volume 84.4 fL (81-99); Mean Platelet Vol. 8.6 fl (6.2-12.0); Monocyte% 8.6 % (0-10); Neutrophil # 13.02 X10^3/uL (2.7-7.7); Platelet Count 322 K/mm3 (150-450); RBC Distribution Width CV 14.9 % (11.6-14.6); RBC Distribution Width SD 44.6 fl (35.1-43.9); Red Blood Count 3.01 M/mm3 (4.2-5.4); White Blood Count 15.2 K/mm3 (4.4-11.0)
[2018-06-15 07:10] LABS: Differential Indicated SCAN CRITERIA MET; POSITIVE COUNT NO; POSITIVE DIFFERENTIAL YES; POSITIVE MORPHOLOGY NO
--- NOTE | 2018-06-15 07:21 | PN_ITS ---
Patient Problems: Active and Suspected Problems Sepsis (Acute) UTI (urinary tract infection) (Acute) СВЕТЛАНА (acute kidney injury) (Acute) Subjective: Patient was seen and examined. She feels better. Denies fever or chills or chest pain. Vitals/I&O's: Vital Signs Temp Pulse Resp BP Pulse Ox 98.8 F 79 16 104/48 L 98 06/15/18 01:55 EST 06/15/18 01:55 EST 06/15/18 01:55 EST 06/15/18 01:55 EST 06/15/18 01:55 EST Oxygen Delivery Method Room Air Weight: 90.718 kg Body Mass Index (BMI) 37.8 Intake and Output for Last 24 Hours 06/13/18 06/14/18 06/15/18 23:59 23:59 22:59 Intake Total 628 / 628 1369 / 1369 Output Total 650 / 650 800 / 800 Balance -22 / -22 569 / 569 General: Alert, Oriented x3, Cooperative, - - morbidly obese HEENT: Atraumatic, PERRLA, EOMI, Normocephalic Oral: Moist Mucosa Neck: Supple, No JVD, Negative Carotid Bruits Lungs: Normal air movement, Diminished Cardiovascular: Regular rate, Regular Rhythm, Normal S1, Normal S2, No murmurs Abdomen: Bowel Sounds Present, Soft, Non Tender, Non-Distended, No Hepato- splenomegaly Extremities: Edema - bipedal edema +3, erythematous, wound dressings in place Skin: - - Lymphedema Musculoskeletal: No Tenderness to Palpation of Joints or Extremities Lymphatic: No Cervical, Supraclavicular, or Inguinal Adenopathy Neurological: Cranial nerves II-XII grossly intact, Neuro grossly intact Psych/Mental Status: Normal Affect, Appropriate Laboratory Results 06/14/18 11:55: WBC 20.3 H, RBC 3.70 L, Hgb 9.7 L, Hct 30.8 L, MCV 83.2, MCH 26.2 L, MCHC 31.5 L, RDW 15.2 H, RDW Differential 46.7 H, Plt Count 342, MPV 8.3, Immature Gran % (Auto) 0.300, Neut % (Auto) 89.5 H, Lymph % (Auto) 3.0 L, [place] % (Auto) 6.2, Eos % (Auto) 0.9, Baso % (Auto) 0.1, Absolute Neuts (auto) 18.1 H, Absolute Lymphs (auto) 0.61 L, Total Counted Not Reportable 06/14/18 11:55: Sodium 132 L, Potassium 3.6, Chloride 97 L, Carbon Dioxide 23.0, Anion Gap 12, BUN 48 H, Creatinine 1.56 H, Estim Creat Clear Calc 23.76, Est GFR (MDRD) Af Amer 42 L, Est GFR (MDRD) Non-Af 35 L, BUN/Creatinine Ratio 30.8 H, Glucose 135 H, Calcium 8.4 L, Total Bilirubin 0.40, AST 10 L, ALT 7 L, Alkaline Phosphatase 160 H, Troponin I < 0.015, Total Protein 8.0, Albumin 2.2 L, Globulin 5.8 H, Albumin/Globulin Ratio 0.4 L 06/14/18 11:55: Lactic Acid 1.1 06/14/18 12:37: Urine Color Yellow, Urine Clarity Cloudy, Urine pH 5.0, Ur Specific [place] 1.015, Urine Protein 30 H, Urine Glucose (UA) Normal, Urine Ketones Negative, Urine Occult Blood 50 H, Urine Nitrite Positive H, Urine Bilirubin Negative, Urine Urobilinogen Normal, Ur Leukocyte Esterase 500 H, Urine RBC 0-5 SEEN, Urine WBC 50-100 SEEN, Ur Squamous Epith Cells 0-5 SEEN, Urine Bacteria 3+, Urine Mucus 1+ 06/15/18 06:35: Sodium Pending, Potassium Pending, Chloride Pending, Carbon Dioxide Pending, Anion Gap Pending, BUN Pending, Creatinine Pending, Est GFR (MDRD) Af Amer Pending, Est GFR (MDRD) Non-Af Pending, BUN/Creatinine Ratio Pending, Glucose Pending, Calcium Pending 06/15/18 06:35: WBC 15.2 H, RBC 3.01 L, Hgb 7.9 L, Hct 25.4 L, MCV 84.4, MCH 26.2 L, MCHC 31.1 L, RDW 14.9 H, RDW Differential 44.6 H, Plt Count 322, MPV 8.6, Immature Gran % (Auto) 0.300, Neut % (Auto) 86.0 H, Lymph % (Auto) 3.7 L, [place] % (Auto) 8.6, Eos % (Auto) 1.3, Baso % (Auto) 0.1, Absolute Neuts (auto) 13.0 H, Absolute Lymphs (auto) 0.56 L, Total Counted Pending Current Medications Carbidopa/Levodopa (Sinemet) tablet PO TID [facility] Carbidopa/Levodopa (Sinemet) 1 tablet PO TIDAC [facility] Citalopram Hydrobromide (Celexa) 10 mg PO DAILY [facility] Diphenoxylate HCl/Atropine (Lomotil) 1 tablet PO BID PRN PRN PRN Reason: Diarrhea Heparin Sodium (Porcine) (Heparin Na) 5,000 unit SC Q12 [facility] Last Admin: 06/14/18 22:02 Dose: 5,000 unit Sodium Chloride () 1,000 mls @ 125 mls/hr IV .Q8H [facility] Last Admin: 06/15/18 01:10 EDT Dose: 125 mls/hr Ceftriaxone Sodium 2 gm/ (Dextrose) 50 mls @ 100 mls/hr IV Q24 [facility] Magnesium Hydroxide (Milk Of Magnesia) 30 ml PO DAILY PRN PRN PRN Reason: Constipation Pramipexole Dihydrochloride (Mirapex) 0.75 mg PO TID [facility] Last Admin: 06/15/18 05:26 Dose: 0.75 mg Sodium Chloride () 5 - 30 ml IV UD PRN PRN Reason: SALINE FLUSH Medical Necessity - Tobacco Use Smoking Status: Never smoker Assessment/Plan All Active Problems Sepsis (Acute) UTI (urinary tract infection) (Acute) СВЕТЛАНА (acute kidney injury) (Acute) Debility (Acute) Walking difficulty due to ankle and foot (Acute) Physical deconditioning (Acute) Toe pain, left (Acute) Toe pain, right (Acute) 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ulcer of right lower extremity with necrosis of muscle (Acute) 72 y/o with PMHx of morbid obesity, lymphedema, chronic wounds following in the wound center admitted with weakness. 1. Acute sepsis secondary to UTI, white cell count improving blood urine cultures are pending, on IV ceftriaxone, 2. Anemia, hemoglobin of 7.9, drop in hemoglobin from 9.7, likely hemodilution, will check HH, FOBT, iron stores 3. Acute kidney injury secondary to dehydration, resolved with IVF 4. Hyponatremia, related to СВЕТЛАНА, improved, will trend BMP 5. Chronic lymphedema, chronic wounds, will consult wound nurse 4. Type 2 DM, not on meds, last HbA1c in January 2018 is 6.8, will recheck HbA1c, continue on Accucheks with ISS coverage. 5. Parkinson's disease, on Sinemet 6. Morbid Obesity, BMI 37.8, diet and exercises recommended 7. DVT ppx- Heparin SC Code Visit Inpatient E&M: 57436 Subs Hosp L2
[2018-06-15 07:25] LABS: Anion Gap 9 (5-15); BUN 31 mg/dL (7-18); Calcium,Total 7.7 mg/dL (8.5-10.1); Chloride 104 mmol/L (98-107); Creatinine, Serum 0.82 mg/dL (0.55-1.02); EST Glomerular Filtration Rate 73 mL/min (>60); Est Glom Filt Rate - Afr Amer 89 mL/min (>60); Estimated Creatinine Clearance 47.48 ml/min; Glucose 92 mg/dL (74-106); Potassium 3.4 mmol/L (3.5-5.1); Sodium Level 136 mmol/L (136-145)
[2018-06-15 07:51] LABS: Hypochromasia 2+; Platelet Estimate ADEQUATE (ADEQ); Red Cell Morphology N CYTIC NORMAL (NORM C&C)
[2018-06-15 08:27] VITALS: BP 100/48; PULSE 79; RESP 18; TEMP 37.3; O2SAT 95
[2018-06-15 10:45] LABS: Hemoglobin A1c 6.3 % (4.2-6.3)
[2018-06-15] MEDS: Heparin Injection (Vial) 5,000 UNIT/ML VIAL 5000 UNIT SC ×2 (11:08→21:24)
[2018-06-15] MEDS: Citalopram 10 MG Tablet PO (11:09)
[2018-06-15 12:37] LABS: Hemoglobin 8.2 g/dl (12.0-15.0)
[2018-06-15] MEDS: Carbidopa/Levodopa 25/100 Tablet PO ×2 (13:19→17:37)
[2018-06-15 13:21] LABS: Bedside Glucose 107 mg/dL (70-110)
[2018-06-15 15:42] VITALS: BP 109/50; PULSE 71; RESP 16; TEMP 37; O2SAT 95
[2018-06-15] MEDS: oxyCODONE 5 MG Tablet PO ×2 (15:51→21:28)
[2018-06-15 15:56] LABS: Bedside Glucose 206 mg/dL (70-110)
[2018-06-15] MEDS: Insulin Lispro 100 UNIT/ML INSULN.PEN SQ (17:36)
[2018-06-15 21:15] VITALS: BP 116/56; PULSE 75; RESP 18; TEMP 37.6; O2SAT 97
[2018-06-15 22:26] LABS: Bedside Glucose 149 mg/dL (70-110)
[2018-06-16] VITALS (7 sets, daily range): BP systolic 94–116; BP diastolic 44–60; PULSE 75–86; RESP 18–26; TEMP 36.9–37.3; O2SAT 94–97
[2018-06-16] MEDS: 0.9% Normal Saline 1,000 ML 125 ML IV ×3 (03:31→21:16)
[2018-06-16] MEDS: Pramipexole Di-HCl 0.25 MG Tablet 0.75 MG PO ×3 (06:39→21:16)
[2018-06-16] MEDS: Carbidopa/Levodopa 25/100 Tablet PO ×3 (06:39→16:28)
[2018-06-16] MEDS: oxyCODONE 5 MG Tablet PO ×3 (06:39→19:17)
[2018-06-16 06:40] LABS: Bedside Glucose 113 mg/dL (70-110)
[2018-06-16 07:49] LABS: Absolute Lymphocyte Count 0.55 X10^3/ul (0.83-4.51); Absolute Neutrophil Count 10.8 X10^3/uL (2.0-7.7); Basophil# 0.04 X10^3/uL; Basophil% 0.3 % (0-1); Eosinophil# 0.26 X10^3/uL; Hematocrit 27.3 % (37-47); Hemoglobin 8.4 g/dl (12.0-15.0); Lymphocyte # 0.55 X10^3/ul (4.0); Lymphocyte % 4.2 % (19-41); Mean Corp Hgb Conc 30.8 g/gl (32-36); Mean Corpuscular Hgb 26.4 pg (27.0-32.0); Mean Corpuscular Volume 85.8 fL (81-99); Mean Platelet Vol. 8.4 fl (6.2-12.0); Monocyte# 1.28 X10^3/uL; Monocyte% 9.8 % (0-10); Platelet Count 325 K/mm3 (150-450); RBC Distribution Width CV 14.8 % (11.6-14.6); RBC Distribution Width SD 44.8 fl (35.1-43.9); Red Blood Count 3.18 M/mm3 (4.2-5.4)
[2018-06-16 07:54] LABS: Differential Indicated SCAN CRITERIA MET; POSITIVE COUNT NO; POSITIVE DIFFERENTIAL YES; POSITIVE MORPHOLOGY NO
[2018-06-16 08:00] LABS: Anion Gap 10 (5-15); BUN 23 mg/dL (7-18); BUN/Creat Ratio 34.6 RATIO (10-20); Calcium,Total 7.8 mg/dL (8.5-10.1); Chloride 103 mmol/L (98-107); Creatinine, Serum 0.66 mg/dL (0.55-1.02); EST Glomerular Filtration Rate 93 mL/min (>60); Est Glom Filt Rate - Afr Amer 113 mL/min (>60); Estimated Creatinine Clearance 38.94 ml/min; Glucose 145 mg/dL (74-106); Potassium 4.2 mmol/L (3.5-5.1); Sodium Level 136 mmol/L (136-145)
[2018-06-16] MEDS: Citalopram 10 MG Tablet PO (09:21)
[2018-06-16] MEDS: Heparin Injection (Vial) 5,000 UNIT/ML VIAL 5000 UNIT SC ×2 (09:22→21:16)
--- NOTE | 2018-06-16 09:35 | PCM.PN.HOSP ---
Patient Problems: Active and Suspected Problems Sepsis (Acute) UTI (urinary tract infection) (Acute) СВЕТЛАНА (acute kidney injury) (Acute) Subjective: Patient seen and examined. She was admitted and is being managed for sepsis due to UTI. The nursing for me that she had been complaining this morning of pain in her right leg and left arm. However to my view patient did complain of such and denied any fever or chills, any cough or chest pain, shortness of breath, abdominal pain, any diarrhea vomiting. Review of systems otherwise negative. Labs and vitals reviewed. Vitals/I&O's: Vital Signs Temp Pulse Resp BP Pulse Ox 98.4 F 75 20 H 107/51 L 94 06/16/18 08:22 06/16/18 08:22 06/16/18 08:22 06/16/18 08:22 06/16/18 08:22 Oxygen Delivery Method Room Air Weight: 199 lb 15.348 oz Body Mass Index (BMI) 37.8 Intake and Output for Last 24 Hours 06/15/18 06/15/18 06/16/18 00:59 23:59 23:59 Intake Total 2127 / 2127 Output Total 575 / 575 Balance 1552 / 1552 General: Alert, Oriented x3, Cooperative, No apparent distress HEENT: Atraumatic, PERRLA, EOMI, Normocephalic Oral: Moist Mucosa Neck: Supple, No JVD, Negative Carotid Bruits Lungs: Clear to auscultation, Normal air movement, No rhonchi, No wheeze, No rales Cardiovascular: Regular rate, Regular Rhythm, Normal S1, Normal S2, No murmurs Abdomen: Bowel Sounds Present, Soft, Non Tender, Non-Distended, No Hepato-splenomegaly Extremities: No clubbing, No cyanosis, Capillary Refill Less than 3 Seconds, - - bilateral LE edema; Both LEs wrapped in SOURAV bandage Skin: No rashes, No breakdown Musculoskeletal: No Tenderness to Palpation of Joints or Extremities Lymphatic: No Cervical, Supraclavicular, or Inguinal Adenopathy Neurological: Cranial nerves II-XII grossly intact, Neuro grossly intact, Motor Exam 5/5 strength throughout Psych/Mental Status: Normal Affect, Appropriate, Alert and oriented to time, place, person, mood and affect Microbiology Past 72 Hours 06/14/18 12:37 Urine Catheter - [place] Urine Culture - Preliminary 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#2 Laboratory Results 06/15/18 06:35: Hemoglobin A1c 6.3 06/15/18 11:10: POC Glucose 107 06/15/18 12:10: Hgb 8.2 L, Hct 26.0 L 06/15/18 15:50: POC Glucose 206 H 06/15/18 21:22: POC Glucose 149 H 06/16/18 06:35: POC Glucose 113 H 06/16/18 07:08: WBC 13.0 H, RBC 3.18 L, Hgb 8.4 L, Hct 27.3 L, MCV 85.8, MCH 26.4 L, MCHC 30.8 L, RDW 14.8 H, RDW Differential 44.8 H, Plt Count 325, MPV 8.4, Immature Gran % (Auto) 0.700, Neut % (Auto) 83.0 H, Lymph % (Auto) 4.2 L, [place] % (Auto) 9.8, Eos % (Auto) 2.0, Baso % (Auto) 0.3, Absolute Neuts (auto) 10.8 H, Absolute Lymphs (auto) 0.55 L, Total Counted Not Reportable, Differential Comment COMMENT 06/16/18 07:08: Sodium 136, Potassium 4.2, Chloride 103, Carbon Dioxide 23.0, Anion Gap 10, BUN 23 H, Creatinine 0.66, Estim Creat Clear Calc 38.94, Est GFR (MDRD) Af Amer 113, Est GFR (MDRD) Non-Af 93, BUN/Creatinine Ratio 34.6 H, Glucose 145 H, Calcium 7.8 L Current Medications Carbidopa/Levodopa (Sinemet) 2 tablet PO TIDAC [facility] Last Admin: 06/16/18 06:39 Dose: 2 tablet Citalopram Hydrobromide (Celexa) 10 mg PO DAILY [facility] Last Admin: 06/15/18 11:09 Dose: 10 mg Dextrose (D50w Syringe) 0 gm IV X1 PRN; Protocol PRN Reason: Hypoglycemia Diphenoxylate HCl/Atropine (Lomotil) 1 tablet PO BID PRN PRN PRN Reason: Diarrhea Glucagon () 1 mg IM .X1 PRN PRN Reason: Hypoglycemia Heparin Sodium (Porcine) (Heparin Na) 5,000 unit SC Q12 [facility] Last Admin: 06/15/18 21:24 Dose: 5,000 unit Sodium Chloride () 1,000 mls @ 125 mls/hr IV .Q8H [facility] Last Admin: 06/16/18 03:31 Dose: 125 mls/hr Ceftriaxone Sodium 2 gm/ (Dextrose) 50 mls @ 100 mls/hr IV Q24 [facility] Last Admin: 06/15/18 11:06 Dose: 100 mls/hr Insulin Human Lispro (Humalog Kwikpen (Bkc)) 0 unit SQ ACHS [facility]; Protocol Last Admin: 06/16/18 06:40 Dose: Not Given Magnesium Hydroxide (Milk Of Magnesia) 30 ml PO DAILY PRN PRN PRN Reason: Constipation Oxycodone HCl (Oxyir) 5 mg PO Q4H PRN PRN PRN Reason: SEVERE PAIN ([id number]) Last Admin: 06/16/18 06:39 Dose: 5 mg Pramipexole Dihydrochloride (Mirapex) 0.75 mg PO TID [facility] Last Admin: 06/16/18 06:39 Dose: 0.75 mg Sodium Chloride () 5 - 30 ml IV UD PRN PRN Reason: SALINE FLUSH Medical Necessity - Tobacco Use Smoking Status: Never smoker Assessment/Plan All Active Problems Sepsis (Acute) UTI (urinary tract infection) (Acute) СВЕТЛАНА (acute kidney injury) (Acute) Debility (Acute) Walking difficulty due to ankle and foot (Acute) Physical deconditioning (Acute) Toe pain, left (Acute) Toe pain, right (Acute) 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ulcer of right lower extremity with necrosis of muscle (Acute) 1. Sepsis due to UTI Had fever overnight with temperature peaking at 99.6 Fahrenheit. White cell count trended down to 13 from 20 on admission. SIRS criteria 2/4-tachycardia with respiratory rate of 20 and leukocytosis. Urine cultured gram-negative rods and blood cultures are pending. Ceftriaxone. We will continue and adjust as per sensitivity. 2. ANemia: Hemoglobin dropped 7.9 yesterday and is up to 8.4 this morning. Check iron panel with ferritin. 3. AK I: Was due to dehydration. Has resolved with initiation of IV fluid. Creatinine down to 0.66 now. 4. Hyponatremia: Resolved. Sodium is 136 now. 5. Chronic lymphedema and chronic wounds of lower extremities. Wound nurse on board. To review today. 6. Type 2 diabetes mellitus: A1c 6.3. Diet controlled. On insulin sliding scale. Accu-Cheks AC at bedtime. 7. Parkinson's disease: on Sinemet 8. Morbid obesity: BMI is 37.8. Patient counselled on diet and exercise. Prophylaxis: Heparin Code Visit Inpatient E&M: 80422 Subs Hosp L2
--- NOTE | 2018-06-16 09:42 | PN_ITS ---
Patient Problems: Active and Suspected Problems Sepsis (Acute) UTI (urinary tract infection) (Acute) СВЕТЛАНА (acute kidney injury) (Acute) Subjective: Patient seen and examined. She was admitted and is being managed for sepsis due to UTI. The nursing for me that she had been complaining this morning of pain in her right leg and left arm. However to my view patient did complain of such and denied any fever or chills, any cough or chest pain, shortness of breath, abdominal pain, any diarrhea vomiting. Review of systems otherwise negative. Labs and vitals reviewed. Vitals/I&O's: Vital Signs Temp Pulse Resp BP Pulse Ox 98.4 F 75 20 H 107/51 L 94 06/16/18 08:22 06/16/18 08:22 06/16/18 08:22 06/16/18 08:22 06/16/18 08:22 Oxygen Delivery Method Room Air Weight: 199 lb 15.348 oz Body Mass Index (BMI) 37.8 Intake and Output for Last 24 Hours 06/15/18 06/15/18 06/16/18 00:59 23:59 23:59 Intake Total 2127 / 2127 Output Total 575 / 575 Balance 1552 / 1552 General: Alert, Oriented x3, Cooperative, No apparent distress HEENT: Atraumatic, PERRLA, EOMI, Normocephalic Oral: Moist Mucosa Neck: Supple, No JVD, Negative Carotid Bruits Lungs: Clear to auscultation, Normal air movement, No rhonchi, No wheeze, No rales Cardiovascular: Regular rate, Regular Rhythm, Normal S1, Normal S2, No murmurs Abdomen: Bowel Sounds Present, Soft, Non Tender, Non-Distended, No Hepato- splenomegaly Extremities: No clubbing, No cyanosis, Capillary Refill Less than 3 Seconds, - - bilateral LE edema; Both LEs wrapped in SOURAV bandage Skin: No rashes, No breakdown Musculoskeletal: No Tenderness to Palpation of Joints or Extremities Lymphatic: No Cervical, Supraclavicular, or Inguinal Adenopathy Neurological: Cranial nerves II-XII grossly intact, Neuro grossly intact, Motor Exam 5/5 strength throughout Psych/Mental Status: Normal Affect, Appropriate, Alert and oriented to time, place, person, mood and affect Microbiology Past 72 Hours 06/14/18 12:37 Urine Catheter - [place] Urine Culture - Preliminary GNR lactose zipper cutter GNR lactose zipper cutter#2 Laboratory Results 06/15/18 06:35: Hemoglobin A1c 6.3 06/15/18 11:10: POC Glucose 107 06/15/18 12:10: Hgb 8.2 L, Hct 26.0 L 06/15/18 15:50: POC Glucose 206 H 06/15/18 21:22: POC Glucose 149 H 06/16/18 06:35: POC Glucose 113 H 06/16/18 07:08: WBC 13.0 H, RBC 3.18 L, Hgb 8.4 L, Hct 27.3 L, MCV 85.8, MCH 26.4 L, MCHC 30.8 L, RDW 14.8 H, RDW Differential 44.8 H, Plt Count 325, MPV 8.4, Immature Gran % (Auto) 0.700, Neut % (Auto) 83.0 H, Lymph % (Auto) 4.2 L, [place] % (Auto) 9.8, Eos % (Auto) 2.0, Baso % (Auto) 0.3, Absolute Neuts (auto) 10.8 H, Absolute Lymphs (auto) 0.55 L, Total Counted Not Reportable, Differential Comment COMMENT 06/16/18 07:08: Sodium 136, Potassium 4.2, Chloride 103, Carbon Dioxide 23.0, Anion Gap 10, BUN 23 H, Creatinine 0.66, Estim Creat Clear Calc 38.94, Est GFR (MDRD) Af Amer 113, Est GFR (MDRD) Non-Af 93, BUN/Creatinine Ratio 34.6 H, Glucose 145 H, Calcium 7.8 L Current Medications Carbidopa/Levodopa (Sinemet) 2 tablet PO TIDAC [facility] Last Admin: 06/16/18 06:39 Dose: 2 tablet Citalopram Hydrobromide (Celexa) 10 mg PO DAILY [facility] Last Admin: 06/15/18 11:09 Dose: 10 mg Dextrose (D50w Syringe) 0 gm IV X1 PRN; Protocol PRN Reason: Hypoglycemia Diphenoxylate HCl/Atropine (Lomotil) 1 tablet PO BID PRN PRN PRN Reason: Diarrhea Glucagon () 1 mg IM .X1 PRN PRN Reason: Hypoglycemia Heparin Sodium (Porcine) (Heparin Na) 5,000 unit SC Q12 [facility] Last Admin: 06/15/18 21:24 Dose: 5,000 unit Sodium Chloride () 1,000 mls @ 125 mls/hr IV .Q8H [facility] Last Admin: 06/16/18 03:31 Dose: 125 mls/hr Ceftriaxone Sodium 2 gm/ (Dextrose) 50 mls @ 100 mls/hr IV Q24 [facility] Last Admin: 06/15/18 11:06 Dose: 100 mls/hr Insulin Human Lispro (Humalog Kwikpen (Bkc)) 0 unit SQ ACHS [facility]; Protocol Last Admin: 06/16/18 06:40 Dose: Not Given Magnesium Hydroxide (Milk Of Magnesia) 30 ml PO DAILY PRN PRN PRN Reason: Constipation Oxycodone HCl (Oxyir) 5 mg PO Q4H PRN PRN PRN Reason: SEVERE PAIN (6-10) Last Admin: 06/16/18 06:39 Dose: 5 mg Pramipexole Dihydrochloride (Mirapex) 0.75 mg PO TID [facility] Last Admin: 06/16/18 06:39 Dose: 0.75 mg Sodium Chloride () 5 - 30 ml IV UD PRN PRN Reason: SALINE FLUSH Medical Necessity - Tobacco Use Smoking Status: Never smoker Assessment/Plan All Active Problems Sepsis (Acute) UTI (urinary tract infection) (Acute) СВЕТЛАНА (acute kidney injury) (Acute) Debility (Acute) Walking difficulty due to ankle and foot (Acute) Physical deconditioning (Acute) Toe pain, left (Acute) Toe pain, right (Acute) 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ulcer of right lower extremity with necrosis of muscle (Acute) 1. Sepsis due to UTI * Had fever overnight with temperature peaking at 99.6 Fahrenheit. * White cell count trended down to 13 from 20 on admission. * SIRS criteria 2/4-tachycardia with respiratory rate of 20 and leukocytosis. * Urine cultured gram-negative rods and blood cultures are pending. * Ceftriaxone. We will continue and adjust as per sensitivity. * 2. ANemia: Hemoglobin dropped 7.9 yesterday and is up to 8.4 this morning. Check iron panel with ferritin. 3. AK I: Was due to dehydration. Has resolved with initiation of IV fluid. Creatinine down to 0.66 now. 4. Hyponatremia: Resolved. Sodium is 136 now. 5. Chronic lymphedema and chronic wounds of lower extremities. * Wound nurse on board. To review today. * 6. Type 2 diabetes mellitus: A1c 6.3. Diet controlled. On insulin sliding scale. Accu-Cheks AC at bedtime. 7. Parkinson's disease: on Sinemet 8. Morbid obesity: BMI is 37.8. Patient counselled on diet and exercise. Prophylaxis: Heparin Code Visit Inpatient E&M: 55956 Subs Hosp L2
--- NOTE | 2018-06-16 10:11 | NURSING ---
wound photo: left posterolateral leg
--- NOTE | 2018-06-16 10:11 | NURSING ---
wound photo: right medial lower leg
--- NOTE | 2018-06-16 10:13 | NURSING ---
wound photo: right posterolateral lower leg
[2018-06-16 10:15] LABS: Ferritin 262 ng/mL (8-252); Iron 16 ug/dL (50-170); Iron Binding Capacity,Total 149 ug/dL (250-450); PERCENT IRON SATURATION 10.7 % (15.0-55.0)
[2018-06-16 11:15] LABS: Bedside Glucose 138 mg/dL (70-110)
--- NOTE | 2018-06-16 11:15 | CASEMGMT ---
MARIAH NICE Face to Face with patient for initial transition planning/care coordination assessment. MARIAH NICE introduced self and role at [facility]. Patient lying in bed, alert and oriented, family friend at bedside. Patient willing to participate in assessment and is able to answer all questions appropriately. Care providers, pharmacy, and demographics verified. Patient wishes to discharge inpatient rehab unit or SNF. Patient states she has no further needs or concerns at this time. VIOLETTA Silva updated regarding request for placement. PCP: Yuliet Specialists: None Preferred Pharmacy: [facility] Insurance: [facility] Prescription Benefit: [facility] Living Will/HPOA: Yes, megan Fonseca HPOA LNOK: Megan Randolph Living Arrangements: Patient lives alone in 1 story home with ramp to enter home. Patient states that family lives close by to help. Transportation: Daughter DME/HHC: Patient has tub bench, BSC, raised toilet seat, cane, hospital bed, lift chair, rails/grab bars, hand held shower, walker, and wheelchair. Patient has HHC with [facility] Disposition Plan: Patient wishes to discharge to rehab unit or SNF. Maria Luisa POOLEN, RN, CM
--- NOTE | 2018-06-16 11:35 | CASEMGMT ---
Social Work Note RN TEX Reyes updated this worker that pt is wanting [facility] at discharge. SW placed a call to referral line. Per Ann Marie she will let Joanne know about referral and let Joanne decide if [facility] is able to accept pt. Plan: [facility] pending acceptance Maria Luisa Silva STAFF RESPIRATORY THERAPIST, CHANNEL MARKETING PROGRAM MANAGER
[2018-06-16] MEDS: Insulin Lispro 100 UNIT/ML INSULN.PEN SQ (16:28)
[2018-06-16 16:35] LABS: Bedside Glucose 160 mg/dL (70-110)
[2018-06-16 20:36] LABS: Bedside Glucose 138 mg/dL (70-110)
[2018-06-17 03:09] VITALS: BP 102/48; PULSE 80; RESP 18; TEMP 37.2; O2SAT 93
[2018-06-17] MEDS: 0.9% Normal Saline 1,000 ML 125 ML IV (05:25)
[2018-06-17] MEDS: Carbidopa/Levodopa 25/100 Tablet PO ×3 (06:28→17:35)
[2018-06-17] MEDS: Pramipexole Di-HCl 0.25 MG Tablet 0.75 MG PO ×2 (06:28→14:19)
[2018-06-17 06:41] LABS: Bedside Glucose 95 mg/dL (70-110)
[2018-06-17 07:27] VITALS: BP 98/49; PULSE 82; RESP 18; TEMP 37.3; O2SAT 92
[2018-06-17 07:38] LABS: Absolute Lymphocyte Count 0.71 X10^3/ul (0.83-4.51); Basophil# 0.02 X10^3/uL; Basophil% 0.2 % (0-1); Eosinophils% 2.4 % (0-5); Hematocrit 26.5 % (37-47); Hemoglobin 8.1 g/dl (12.0-15.0); Lymphocyte # 0.71 X10^3/ul (4.0); Lymphocyte % 5.6 % (19-41); Mean Corp Hgb Conc 30.6 g/gl (32-36); Mean Corpuscular Hgb 25.8 pg (27.0-32.0); Mean Corpuscular Volume 84.4 fL (81-99); Mean Platelet Vol. 8.4 fl (6.2-12.0); Monocyte# 1.42 X10^3/uL; Monocyte% 11.3 % (0-10); Neutrophil # 10.01 X10^3/uL (2.7-7.7); Neutrophil % 79.5 % (47-70); Platelet Count 292 K/mm3 (150-450); RBC Distribution Width CV 15.4 % (11.6-14.6); RBC Distribution Width SD 48.1 fl (35.1-43.9); Red Blood Count 3.14 M/mm3 (4.2-5.4); White Blood Count 12.6 K/mm3 (4.4-11.0)
[2018-06-17 07:39] LABS: POSITIVE COUNT NO; POSITIVE DIFFERENTIAL NO; POSITIVE MORPHOLOGY NO
[2018-06-17 07:49] LABS: Anion Gap 9 (5-15); BUN 18 mg/dL (7-18); BUN/Creat Ratio 26.7 RATIO (10-20); Calcium,Total 8.1 mg/dL (8.5-10.1); Chloride 105 mmol/L (98-107); Creatinine, Serum 0.67 mg/dL (0.55-1.02); EST Glomerular Filtration Rate 92 mL/min (>60); Est Glom Filt Rate - Afr Amer 111 mL/min (>60); Estimated Creatinine Clearance 38.94 ml/min; Glucose 91 mg/dL (74-106); Potassium 4.6 mmol/L (3.5-5.1); Sodium Level 136 mmol/L (136-145)
[2018-06-17] MEDS: Citalopram 10 MG Tablet PO (09:02)
[2018-06-17] MEDS: Heparin Injection (Vial) 5,000 UNIT/ML VIAL 5000 UNIT SC (09:03)
--- NOTE | 2018-06-17 09:52 | CASEMGMT ---
Social Work Note SW received message from RN Bianca that pt is now requesting to go to [facility] at discharge. SW in to speak with pt. Pt confirms that she would like a referral sent to [facility]. SW explained this worker will send referral and will have to check on bed availability at [facility]. Pt states understanding. SW faxed referral to [facility] and placed a call to Cristina and left her a message regarding referral and that pt is ready for discharge today. SW waiting for call back from Cristina. Plan: [facility] pending acceptance Maria Luisa Silva TUNNELLER, BUSINESS INTERN
[2018-06-17 12:00] VITALS: RESP 18
--- NOTE | 2018-06-17 12:00 | CASEMGMT ---
Social Work Note SW received message from Cristina at [facility] and per Cristina due to everything going on with pt they are unable to accept at this time. SW met with pt. Pt's friend present in room. Pt gave this worker permission to speak to her in front of her friend. SW updated pt that [facility] is unable to accept. VIOLETTA educated pt on SNF in areas. Pt agreeable to referral being sent to [facility]. VIOLETTA faxed referral to [facility] and placed a call to Adali and left her a message informing her of referral. Plan: [facility] pending acceptance Maria Luisa Silva CONVERSION WORKER, PCI SECURITY CONSULTANT
[2018-06-17 12:06] LABS: Bedside Glucose 125 mg/dL (70-110)
--- NOTE | 2018-06-17 12:43 | PCM.PN.HOSP ---
Patient Problems: Active and Suspected Problems Sepsis (Acute) UTI (urinary tract infection) (Acute) СВЕТЛАНА (acute kidney injury) (Acute) Subjective: Patient seen and examined. She had a good night sleep and had no complaints. She denied any fever or chills, cough or chest pain, shortness of breath, abdominal pain, any diarrhea vomiting. Patient now states he does not want to go home as she does not think she can look after herself at home and is willing to go to a snf. She is awaiting placement. Vitals/I&O's: Vital Signs Temp Pulse Resp BP Pulse Ox 99.2 F H 82 18 98/49 L 92 06/17/18 07:27 06/17/18 07:27 06/17/18 07:27 06/17/18 07:27 06/17/18 07:27 Oxygen Delivery Method Room Air Weight: 199 lb 15.348 oz Body Mass Index (BMI) 37.8 Intake and Output for Last 24 Hours 06/15/18 06/16/18 06/17/18 23:59 23:59 23:59 Intake Total 4604 / 4604 855 / 855 Output Total 1425 / 1425 300 / 300 Balance 3179 / 3179 555 / 555 General: Alert, Oriented x3, Cooperative, No apparent distress HEENT: Atraumatic, PERRLA, EOMI, Normocephalic Oral: Moist Mucosa Neck: Supple, No JVD, Negative Carotid Bruits Lungs: Clear to auscultation, Normal air movement, No rhonchi, No wheeze, No rales Cardiovascular: Regular rate, Regular Rhythm, Normal S1, Normal S2, No murmurs Abdomen: Bowel Sounds Present, Soft, Non Tender, Non-Distended, No Hepato-splenomegaly Extremities: No clubbing, No cyanosis, No edema, Capillary Refill Less than 3 Seconds Skin: No rashes, No breakdown Musculoskeletal: No Tenderness to Palpation of Joints or Extremities Lymphatic: No Cervical, Supraclavicular, or Inguinal Adenopathy Neurological: Cranial nerves II-XII grossly intact Psych/Mental Status: Normal Affect, Appropriate, Alert and oriented to time, place, person, mood and affect Microbiology Past 72 Hours 06/14/18 11:55 Blood Culture (Wb) - Anticubital Right Blood Culture - Preliminary No growth in 48 hours. 06/14/18 11:55 Blood Culture (Wb) - Anticubital Left Blood Culture - Preliminary No growth in 48 hours. 06/14/18 12:37 Urine Catheter - [place] Urine Culture - Final Klebsiella pneumoniae sp pneum Escherichia coli Laboratory Results 06/16/18 16:26: POC Glucose 160 H 06/16/18 20:33: POC Glucose 138 H 06/17/18 06:36: POC Glucose 95 06/17/18 06:50: WBC 12.6 H, RBC 3.14 L, Hgb 8.1 L, Hct 26.5 L, MCV 84.4, MCH 25.8 L, MCHC 30.6 L, RDW 15.4 H, RDW Differential 48.1 H, Plt Count 292, MPV 8.4, Immature Gran % (Auto) 1.000 H, Neut % (Auto) 79.5 H, Lymph % (Auto) 5.6 L, [place] % (Auto) 11.3 H, Eos % (Auto) 2.4, Baso % (Auto) 0.2, Absolute Neuts (auto) 10.0 H, Absolute Lymphs (auto) 0.71 L, Total Counted Not Reportable 06/17/18 06:50: Sodium 136, Potassium 4.6, Chloride 105, Carbon Dioxide 22.0, Anion Gap 9, BUN 18, Creatinine 0.67, Estim Creat Clear Calc 38.94, Est GFR (MDRD) Af Amer 111, Est GFR (MDRD) Non-Af 92, BUN/Creatinine Ratio 26.7 H, Glucose 91, Calcium 8.1 L 06/17/18 11:36: POC Glucose 125 H Current Medications Carbidopa/Levodopa (Sinemet) 2 tablet PO TIDAC [facility] Last Admin: 06/17/18 11:58 Dose: 2 tablet Citalopram Hydrobromide (Celexa) 10 mg PO DAILY [facility] Last Admin: 06/17/18 09:02 Dose: 10 mg Dextrose (D50w Syringe) 0 gm IV X1 PRN; Protocol PRN Reason: Hypoglycemia Diphenoxylate HCl/Atropine (Lomotil) 1 tablet PO BID PRN PRN PRN Reason: Diarrhea Glucagon () 1 mg IM .X1 PRN PRN Reason: Hypoglycemia Heparin Sodium (Porcine) (Heparin Na) 5,000 unit SC Q12 [facility] Last Admin: 06/17/18 09:03 Dose: 5,000 unit Sodium Chloride () 1,000 mls @ 125 mls/hr IV .Q8H [facility] Last Admin: 06/17/18 05:25 Dose: 125 mls/hr Ceftriaxone Sodium 2 gm/ (Dextrose) 50 mls @ 100 mls/hr IV Q24 [facility] Last Admin: 06/17/18 09:02 Dose: 100 mls/hr Insulin Human Lispro (Humalog Kwikpen (Bkc)) 0 unit SQ ACHS [facility]; Protocol Last Admin: 06/17/18 11:59 Dose: Not Given Magnesium Hydroxide (Milk Of Magnesia) 30 ml PO DAILY PRN PRN PRN Reason: Constipation Oxycodone HCl (Oxyir) 5 mg PO Q4H PRN PRN PRN Reason: SEVERE PAIN (-05/21) Last Admin: 06/16/18 19:17 Dose: 5 mg Pramipexole Dihydrochloride (Mirapex) 0.75 mg PO TID [facility] Last Admin: 06/17/18 06:28 Dose: 0.75 mg Sodium Chloride () 5 - 30 ml IV UD PRN PRN Reason: SALINE FLUSH Medical Necessity - Tobacco Use Smoking Status: Never smoker Assessment/Plan All Active Problems Sepsis (Acute) UTI (urinary tract infection) (Acute) СВЕТЛАНА (acute kidney injury) (Acute) Debility (Acute) Walking difficulty due to ankle and foot (Acute) Physical deconditioning (Acute) Toe pain, left (Acute) Toe pain, right (Acute) 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ulcer of right lower extremity with necrosis of muscle (Acute) 1. Sepsis due to UTI still having a low grade fever; temp was 99.2F today white cell count trended down to 12.6 urine cultured Klebsiella pneumoniae and E coli blood cultures negative on IV ceftriaxone, whcih both organisms adre sensitive to. will switch to Augmentin tomorrow. 2. ANemia: Hb is 8.1 today.stable. Iron panel showed low iron of 16 with iron saturation of 10.7. Ferritin was low at 262 indicating she does have a steroid to this may be a mixed picture of iron deficiency anemia anemia of chronic disease. will monitor 3. AK I: resolved. 4. Hyponatremia: Resolved. 5. Chronic lymphedema and chronic wounds of lower extremities. Wound nurse on board. 6. Type 2 diabetes mellitus: A1c 6.3. Diet controlled. On insulin sliding scale. Accu-Cheks AC at bedtime. 7. Parkinson's disease: on Sinemet 8. Morbid obesity: BMI is 37.8. Patient counselled on diet and exercise. Prophylaxis: Heparin Disposition: awaiting placement Code Visit Inpatient E&M: 70485 Subs Hosp L2
--- NOTE | 2018-06-17 12:49 | PN_ITS ---
Patient Problems: Active and Suspected Problems Sepsis (Acute) UTI (urinary tract infection) (Acute) СВЕТЛАНА (acute kidney injury) (Acute) Subjective: Patient seen and examined. She had a good night sleep and had no complaints. She denied any fever or chills, cough or chest pain, shortness of breath, abdominal pain, any diarrhea vomiting. Patient now states he does not want to go home as she does not think she can look after herself at home and is willing to go to a chcf. She is awaiting placement. Vitals/I&O's: Vital Signs Temp Pulse Resp BP Pulse Ox 99.2 F H 82 18 98/49 L 92 06/17/18 07:27 06/17/18 07:27 06/17/18 07:27 06/17/18 07:27 06/17/18 07:27 Oxygen Delivery Method Room Air Weight: 199 lb 15.348 oz Body Mass Index (BMI) 37.8 Intake and Output for Last 24 Hours 06/15/18 06/16/18 06/17/18 23:59 23:59 23:59 Intake Total 4604 / 4604 855 / 855 Output Total 1425 / 1425 300 / 300 Balance 3179 / 3179 555 / 555 General: Alert, Oriented x3, Cooperative, No apparent distress HEENT: Atraumatic, PERRLA, EOMI, Normocephalic Oral: Moist Mucosa Neck: Supple, No JVD, Negative Carotid Bruits Lungs: Clear to auscultation, Normal air movement, No rhonchi, No wheeze, No rales Cardiovascular: Regular rate, Regular Rhythm, Normal S1, Normal S2, No murmurs Abdomen: Bowel Sounds Present, Soft, Non Tender, Non-Distended, No Hepato- splenomegaly Extremities: No clubbing, No cyanosis, No edema, Capillary Refill Less than 3 Seconds Skin: No rashes, No breakdown Musculoskeletal: No Tenderness to Palpation of Joints or Extremities Lymphatic: No Cervical, Supraclavicular, or Inguinal Adenopathy Neurological: Cranial nerves II-XII grossly intact Psych/Mental Status: Normal Affect, Appropriate, Alert and oriented to time, place, person, mood and affect Microbiology Past 72 Hours 06/14/18 11:55 Blood Culture (Wb) - Anticubital Right Blood Culture - Preliminary No growth in 48 hours. 06/14/18 11:55 Blood Culture (Wb) - Anticubital Left Blood Culture - Preliminary No growth in 48 hours. 06/14/18 12:37 Urine Catheter - [place] Urine Culture - Final Klebsiella pneumoniae sp pneum Escherichia coli Laboratory Results 06/16/18 16:26: POC Glucose 160 H 06/16/18 20:33: POC Glucose 138 H 06/17/18 06:36: POC Glucose 95 06/17/18 06:50: WBC 12.6 H, RBC 3.14 L, Hgb 8.1 L, Hct 26.5 L, MCV 84.4, MCH 25.8 L, MCHC 30.6 L, RDW 15.4 H, RDW Differential 48.1 H, Plt Count 292, MPV 8.4, Immature Gran % (Auto) 1.000 H, Neut % (Auto) 79.5 H, Lymph % (Auto) 5.6 L, [place] % (Auto) 11.3 H, Eos % (Auto) 2.4, Baso % (Auto) 0.2, Absolute Neuts (auto) 10.0 H, Absolute Lymphs (auto) 0.71 L, Total Counted Not Reportable 06/17/18 06:50: Sodium 136, Potassium 4.6, Chloride 105, Carbon Dioxide 22.0, Anion Gap 9, BUN 18, Creatinine 0.67, Estim Creat Clear Calc 38.94, Est GFR (MDRD) Af Amer 111, Est GFR (MDRD) Non-Af 92, BUN/Creatinine Ratio 26.7 H, Glucose 91, Calcium 8.1 L 06/17/18 11:36: POC Glucose 125 H Current Medications Carbidopa/Levodopa (Sinemet) 2 tablet PO TIDAC [facility] Last Admin: 06/17/18 11:58 Dose: 2 tablet Citalopram Hydrobromide (Celexa) 10 mg PO DAILY [facility] Last Admin: 06/17/18 09:02 Dose: 10 mg Dextrose (D50w Syringe) 0 gm IV X1 PRN; Protocol PRN Reason: Hypoglycemia Diphenoxylate HCl/Atropine (Lomotil) 1 tablet PO BID PRN PRN PRN Reason: Diarrhea Glucagon () 1 mg IM .X1 PRN PRN Reason: Hypoglycemia Heparin Sodium (Porcine) (Heparin Na) 5,000 unit SC Q12 [facility] Last Admin: 06/17/18 09:03 Dose: 5,000 unit Sodium Chloride () 1,000 mls @ 125 mls/hr IV .Q8H [facility] Last Admin: 06/17/18 05:25 Dose: 125 mls/hr Ceftriaxone Sodium 2 gm/ (Dextrose) 50 mls @ 100 mls/hr IV Q24 [facility] Last Admin: 06/17/18 09:02 Dose: 100 mls/hr Insulin Human Lispro (Humalog Kwikpen (Bkc)) 0 unit SQ ACHS [facility]; Protocol Last Admin: 06/17/18 11:59 Dose: Not Given Magnesium Hydroxide (Milk Of Magnesia) 30 ml PO DAILY PRN PRN PRN Reason: Constipation Oxycodone HCl (Oxyir) 5 mg PO Q4H PRN PRN PRN Reason: SEVERE PAIN (6-05/21) Last Admin: 06/16/18 19:17 Dose: 5 mg Pramipexole Dihydrochloride (Mirapex) 0.75 mg PO TID [facility] Last Admin: 06/17/18 06:28 Dose: 0.75 mg Sodium Chloride () 5 - 30 ml IV UD PRN PRN Reason: SALINE FLUSH Medical Necessity - Tobacco Use Smoking Status: Never smoker Assessment/Plan All Active Problems Sepsis (Acute) UTI (urinary tract infection) (Acute) СВЕТЛАНА (acute kidney injury) (Acute) Debility (Acute) Walking difficulty due to ankle and foot (Acute) Physical deconditioning (Acute) Toe pain, left (Acute) Toe pain, right (Acute) 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ulcer of right lower extremity with necrosis of muscle (Acute) 1. Sepsis due to UTI * still having a low grade fever; temp was 99.2F today * white cell count trended down to 12.6 * urine cultured Klebsiella pneumoniae and E coli * blood cultures negative * on IV ceftriaxone, whcih both organisms adre sensitive to. * will switch to Augmentin tomorrow. * 2. ANemia: * Hb is 8.1 today.stable. * Iron panel showed low iron of 16 with iron saturation of 10.7. Ferritin was low at 262 indicating she does have a steroid to this may be a mixed picture of iron deficiency anemia anemia of chronic disease. * will monitor * 3. AK I: resolved. 4. Hyponatremia: Resolved. 5. Chronic lymphedema and chronic wounds of lower extremities. * Wound nurse on board. * 6. Type 2 diabetes mellitus: A1c 6.3. Diet controlled. On insulin sliding scale. Accu-Cheks AC at bedtime. 7. Parkinson's disease: on Sinemet 8. Morbid obesity: BMI is 37.8. Patient counselled on diet and exercise. Prophylaxis: Heparin Disposition: awaiting placement Code Visit Inpatient E&M: 19736 Subs Hosp L2
--- NOTE | 2018-06-17 13:23 | CON.PCM_ITS ---
Problem List (1) Chronic ulcer of right leg with fat layer exposed Status: Chronic (2) Ulcer of left lower extremity with fat layer exposed Status: Chronic (3) Lymphedema Status: Chronic (4) Physical deconditioning Status: Chronic (5) Delayed wound healing Status: Chronic (6) Venous insufficiency (chronic) (peripheral) Status: Chronic Reason for Consult Date of Consultation: 06/17/18 Reason for Consultation: Leg ulcers chronic History of Present Illness: The patient is a 72 year old female with significant past medical history of acute kidney injury, dehydration, diabetes, Parkinson's, obesity, history of anemia was admitted for sepsis secondary to her urinary tract infection. I saw her bedside this afternoon for follow-up of bilateral chronic leg ulcers. She is previously well known to me in the wound healing center and she was previously tentatively scheduled for a versa jet ulcer debridement with application of advanced wound care product for this upcoming Saturday. Her right lower extremity ulcer sites are more tender than the left side and this is consistent with previous exams. She denies fever, chill, nausea at this time. She complains of continued leg swelling and even left hand swelling. She denies falling or any other traumatic event prior to admission to the hospital. She recently had her leg ulcer dressing changed by registration scheduling specialist nurse, Katerin. Past Medical History Past Medical History (Chronic Problems): Chronic Problems Delayed wound healing (Chronic) Lymphedema (Chronic) Morbid obesity (Chronic) Lymphedema (Chronic) Cellulitis of right leg (Chronic) Ulcer of left lower extremity with fat layer exposed (Chronic) Right leg pain (Chronic) Left leg pain (Chronic) Swelling of left lower extremity (Chronic) Swelling of right lower extremity (Chronic) Edema, leg (Chronic) Chronic venous insufficiency (Chronic) Dependent edema (Chronic) Venous ulcer of left leg (Chronic) Venous ulcer of right leg (Chronic) Lymphedema of left leg (Chronic) Lymphedema of right lower extremity (Chronic) Obesity (BMI 30-39.9) (Chronic) Parkinsons disease (Chronic) Immobility (Chronic) Urinary incontinence (Chronic) Cellulitis of leg, right (Chronic) Tinea unguium (Chronic) Type 2 diabetes mellitus with diabetic polyneuropathy (Chronic) Physical deconditioning (Chronic) Tinea unguium (Chronic) Delayed wound healing (Chronic) Tibialis posterior dysfunction (Chronic) Walking difficulty due to ankle and foot (Chronic) Pain, foot, left, chronic (Chronic) Left tibialis posterior tendonitis (Chronic) Ulcer of left lower extremity with fat layer exposed (Chronic) Left ankle pain (Chronic) Left tibialis tendonitis (Chronic) Chronic ulcer of right leg with fat layer exposed (Chronic) Lymphedema of lower extremity (Chronic) Venous insufficiency (chronic) (peripheral) (Chronic) Diabetes mellitus with polyneuropathy (Chronic) 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ulcer of right lower extremity with fat layer exposed (Chronic) Ulcer of right leg (Chronic) Malnutrition (Chronic) Edema leg (Chronic) Allergies No Known Allergies Allergy (Verified 06/14/18 11:33) Home Medications: Ambulatory Orders Medication Instructions Recorded Diphenoxylate/Atrop [Lomotil] 1 tablet PO BID PRN PRN 04/04/16 Ropinirole HCl [Requip Xl] 8 mg PO DAILY 04/04/16 Ibuprofen [Ibu] 800 mg PO PRN PRN 06/13/18 Carbidopa/Levodopa 25/100 [Sinemet] 2 tablet PO TIDAC 06/14/18 Citalopram [Celexa] 10 mg PO DAILY 06/14/18 Amoxicillin/Potassium Clav 1 each PO BID #10 tablet 06/17/18 [Amox-Clav 875-125 mg Tablet] Surgical History: total knee arthroplasty - bilateral Psychiatric History: Anxiety PSYCHOLOGICAL SCIENCE PROFESSOR History: No pertinent PSYCHOLOGICAL SCIENCE PROFESSOR history Smoking Status: Never smoker Alcohol: None Drugs: None Review of Systems Constitutional: Reports: Weakness. Denies: Chills, Fever Cardiovascular: Denies: Claudication - Admits lack of walking Respiratory: Denies: Shortness of Breath Gastrointestinal: Denies: Nausea Musculoskeletal: Reports: Leg Pain Skin: Reports: Wounds Neurological: Reports: Balance problems, Incoordination Psychiatric: Reports: Anxiety Hematologic/ Lymphatic: Reports: Anemia Patient Problems: Active and Suspected Problems Sepsis (Acute) UTI (urinary tract infection) (Acute) СВЕТЛАНА (acute kidney injury) (Acute) - Physical Exam General: Alert, Oriented x3, Cooperative Extremities: Capillary Refill Less than 3 Seconds, Diminished Peripheral Pulses, Edema - Bilateral lower extremity lymphedema consistent with previous examinations Skin: - - Dressings are clean dry and intact without strikethrough odor or adjacent erythema streaking Musculoskeletal: No Tenderness to Palpation of Joints or Extremities, Muscle Wasting Psych/Mental Status: Normal Affect, Appropriate Vital Signs Temp Pulse Resp BP Pulse Ox 99.2 F H 82 18 98/49 L 92 06/17/18 07:27 06/17/18 07:27 06/17/18 07:27 06/17/18 07:27 06/17/18 07:27 Oxygen Delivery Method Room Air Weight: 90.7 kg Body Mass Index (BMI) 37.8 Intake and Output for Last 24 Hours 06/15/18 06/16/18 06/17/18 23:59 23:59 23:59 Intake Total 4604 / 4604 855 / 855 Output Total 1425 / 1425 300 / 300 Balance 3179 / 3179 555 / 555 Microbiology Past 72 Hours 06/14/18 11:55 Blood Culture - Preliminary Blood Culture (Wb) - Anticubital Right No growth in 48 hours. 06/14/18 11:55 Blood Culture - Preliminary Blood Culture (Wb) - Anticubital Left No growth in 48 hours. 06/14/18 12:37 Urine Culture - Final Urine Catheter - Grande Klebsiella pneumoniae sp pneum Escherichia coli Laboratory Tests Past 24 Hrs 06/17/18 06/17/18 06:50 06:50 WBC 12.6 H RBC 3.14 L Hgb 8.1 L Hct 26.5 L MCV 84.4 MCH 25.8 L MCHC 30.6 L RDW 15.4 H RDW Differential 48.1 H Plt Count 292 MPV 8.4 Immature Gran % (Auto) 1.000 H Neut % (Auto) 79.5 H Lymph % (Auto) 5.6 L Dawes % (Auto) 11.3 H Eos % (Auto) 2.4 Baso % (Auto) 0.2 Absolute Neuts (auto) 10.0 H Absolute Lymphs (auto) 0.71 L Total Counted Not Reportable Sodium 136 Potassium 4.6 Chloride 105 Carbon Dioxide 22.0 Anion Gap 9 BUN 18 Creatinine 0.67 Estim Creat Clear Calc 38.94 Est GFR (MDRD) Af Amer 111 Est GFR (MDRD) Non-Af 92 BUN/Creatinine Ratio 26.7 H Glucose 91 Calcium 8.1 L POC Glucose 06/17/18 06/17/18 06/16/18 11:36 06:36 20:33 POC Glucose 125 H 95 138 H 06/16/18 16:26 POC Glucose 160 H Assessment/Plan All Active Problems Sepsis (Acute) UTI (urinary tract infection) (Acute) СВЕТЛАНА (acute kidney injury) (Acute) Debility (Acute) Walking difficulty due to ankle and foot (Acute) Toe pain, left (Acute) Toe pain, right (Acute) 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ulcer of right lower extremity with necrosis of muscle (Acute) Bilateral lower extremity ulcers Bilateral lower extremity edema including lymphedema Obesity Diabetes Delayed healing Recent sepsis secondary to urinary tract infection Other comorbidities include Parkinson's, recent acute kidney injury, obesity, difficulty with ambulation and high fall risk I reviewed and discussed her case. Her ulcer photos were reviewed that were obtained yesterday by nurse Katerin in which no local signs of infection are noted. To continue with Aquacel AG dressing changes and cleansing with registration scheduling specialist. I recommend she keeps additional pressure off of the posterior right leg ulcer by propping pillows behind her thigh and leg. It is noted she does have a complaint of continual right leg pain and this is presumed to be from the wound however she will be monitored for any signs of blood clot or other injury which are not apparent at this time. It is noted her white blood cell count was 12.6 and she is being treated for urinary tract infection at this time. shelter placement is pending. Upon discharge from the medical surgical floor, whether it is to the transitional care unit or outside detention facility, I am to reschedule her debridement and application of advanced wound care product procedure in the operating room. She will need medical clearance for this procedure under MAC and I recommend waiting until she is medically stable. Please not hesitate to call if you have any questions. Arpita Interiano DPM, [facility] [phone]
--- NOTE | 2018-06-17 13:25 | TREXTCAR_ITS ---
- Diet 06/14/18 15:05 Diet: Regular Diet Food consistency:: Regular Liquid Consistency:: Regular/Thin - Routine Orders/Code Status Enema Type: Fleetz Enema Frequency: Daily PRN Suppository Type: Dulcolax 10mg Suppository Frequency: Daily PRN O2 Frequency: PRN Keep PO Greater than or Equal to (%): 92 - Wound(s) Right lower leg- medial Wound Type: Stasis Ulcer Right lower leg-lateral Wound Type: Stasis Ulcer Left leg-lateral posterior Wound Type: Stasis Ulcer Left lower leg Wound Type: Stasis Ulcer Left lower leg #2 Wound Type: Stasis Ulcer Left lower leg #3 Wound Type: Stasis Ulcer left posterolateral leg Wound Type: Stasis Ulcer Dressing Change: AntiMicrobial (Aquacel AG, etc) right medial lower leg Wound Type: Stasis Ulcer Dressing Change: AntiMicrobial (Aquacel AG, etc) right posterolateral lower leg Wound Type: Stasis Ulcer Dressing Change: AntiMicrobial (Aquacel AG, etc) - Therapies Weight Bearing: Weight bearing as tolerated Physical Therapy: Eval and Treat Occupational Therapy: Eval and Treat - Allergies/Procedures Done in Hospital Allergies/Adverse Reactions: Allergies No Known Allergies Allergy (Verified 06/14/18 11:33) Procedures: None - Type of Care/Length of Stay Estimated LOS: Convalescent Care Less Than 30 days Type of Care Needed: Skilled Rehab Potential: Fair Prognosis: Fair - Additional Orders/Day of Discharge H&P will serve as current which was dated: 06/14/18 Day of Discharge: 06/17/18 - Dietary and Speech Recommendations Dietitian Recommendations/Changes: Suggest diet change to 1800 calorie- controlled/cardiac. Suggest Rachid 1 packet BID for wound healing--order from pharmacy. - Follow Up Care Primary Care Physician: Laney Horvath DO [Primary Care Provider] - Please follow up with your Primary Care Physician in: 1-2 weeks
--- NOTE | 2018-06-17 13:25 | PCM.DC.SUM ---
Discharge Date and Diagnosis Date of Admission: 06/14/18 Date of Discharge: 06/17/18 - Primary Discharge Diagnosis Active and Suspected Problems Sepsis (Acute) UTI (urinary tract infection) (Acute) СВЕТЛАНА (acute kidney injury) (Acute) - Secondary Discharge Diagnosis Chronic Problems Delayed wound healing (Chronic) Lymphedema (Chronic) Morbid obesity (Chronic) Lymphedema (Chronic) Cellulitis of right leg (Chronic) Ulcer of left lower extremity with fat layer exposed (Chronic) Right leg pain (Chronic) Left leg pain (Chronic) Swelling of left lower extremity (Chronic) Swelling of right lower extremity (Chronic) Edema, leg (Chronic) Chronic venous insufficiency (Chronic) Dependent edema (Chronic) Venous ulcer of left leg (Chronic) Venous ulcer of right leg (Chronic) Lymphedema of left leg (Chronic) Lymphedema of right lower extremity (Chronic) Obesity (BMI 30-39.9) (Chronic) Parkinsons disease (Chronic) Immobility (Chronic) Urinary incontinence (Chronic) Cellulitis of leg, right (Chronic) Tinea unguium (Chronic) Type 2 diabetes mellitus with diabetic polyneuropathy (Chronic) Physical deconditioning (Chronic) Tinea unguium (Chronic) Delayed wound healing (Chronic) Tibialis posterior dysfunction (Chronic) Walking difficulty due to ankle and foot (Chronic) Pain, foot, left, chronic (Chronic) Left tibialis posterior tendonitis (Chronic) Ulcer of left lower extremity with fat layer exposed (Chronic) Left ankle pain (Chronic) Left tibialis tendonitis (Chronic) Chronic ulcer of right leg with fat layer exposed (Chronic) Lymphedema of lower extremity (Chronic) Venous insufficiency (chronic) (peripheral) (Chronic) Diabetes mellitus with polyneuropathy (Chronic) 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ulcer of right lower extremity with fat layer exposed (Chronic) Ulcer of right leg (Chronic) Malnutrition (Chronic) Edema leg (Chronic) Hospital Course and Treatment Imaging Results: Diagnostic Data Chest X-Ray 06/14/18 11:45 IMPRESSION: Normal x-ray examination of the chest. Electronically Signed: Henry Khan DO at 12:19 EDT Tel , Service support , Consultations 06/14/18 15:05 Consult: Onc/Wound/ux engineer Routine Comment: Operations: None Procedures: None Summary of Care Provided: The patient is a 72 year old F with a history of chronic venous insufficiency and lymph remedy as well as morbid obesity. She also has a history of Parkinson's disease diabetes mellitus as well as hypertension. She was admitted with a complaint of weakness as well as tiredness and fatigue. Labs in the ED showed evidence of UTI. She was admitted and managed for sepsis due to UTI on account of elevated white cell count and tachypnea. Urine culture Klebsiella and E. coli. She was started on IV ceftriaxone which was eventually transitioned to p.o. Augmentin on discharge. She remained stable however said that she did not think she could take care of herself at home as she lives alone. She therefore opted to go to a halfway. Patient was accepted at the [facility] and was discharged there on 06/17/2018. She was discharged with a 5-day course of p.o. amoxicillin clavulanic acid. She is to follow-up with her primary care doctor. During admission, wound care was consulted on account of her chronic lower extremity ulcers. She is also to follow-up with wound care on out patient basis. Patient seen and examined prior to discharge. She had no complaints at time of review of this morning but later in the day complaint of left shoulder pain which he said is due to a chronic rotator cuff injury. X-rays of her left shoulder and humerus only showed chronic arthritic changes and soft tissue swelling. She had duplex of her left upper extremity which was negative for DVT. She denied any cough or chest pain, shortness of breath, abdominal pain, diarrhea vomiting. Review of systems otherwise negative. Vital Signs Height 5 ft 1 in Weight: 199 lb 15.348 oz Weight in Pounds 200.0 lbs Pulse Ox 92 Temperature 99.2 F Pulse Rate 82 Respiratory Rate 18 Blood Pressure 98/49 Blood Pressure Position Semi-Fowlers General: Alert, Oriented x3, Cooperative, No apparent distress HEENT: Atraumatic, PERRLA, EOMI, Normocephalic Oral: Moist Mucosa Neck: Supple, No JVD, Negative Carotid Bruits Lungs: Clear to auscultation, Normal air movement, No rhonchi, No wheeze, No rales Cardiovascular: Regular rate, Regular Rhythm, Normal S1, Normal S2, No murmurs Abdomen: Bowel Sounds Present, Soft, Non Tender, Non-Distended, No Hepato-splenomegaly Extremities: No clubbing, No cyanosis, No edema, Capillary Refill Less than 3 Seconds Skin: No rashes, No breakdown Musculoskeletal: No Tenderness to Palpation of Joints or Extremities Lymphatic: No Cervical, Supraclavicular, or Inguinal Adenopathy Neurological: Cranial nerves II-XII grossly intact Psych/Mental Status: Normal Affect, Appropriate, Alert and oriented to time, place, person, mood and affect - Physical Exam Vital Signs Temp Pulse Resp BP Pulse Ox 99.2 F H 82 18 98/49 L 92 06/17/18 07:27 06/17/18 07:27 06/17/18 07:27 06/17/18 07:27 06/17/18 07:27 Oxygen Delivery Method Room Air Weight: 199 lb 15.348 oz Body Mass Index (BMI) 37.8 Intake and Output for Last 24 Hours 06/15/18 06/16/18 06/17/18 23:59 23:59 23:59 Intake Total 4604 / 4604 855 / 855 Output Total 1425 / 1425 300 / 300 Balance 3179 / 3179 555 / 555 Microbiology Past 72 Hours 06/14/18 11:55 Blood Culture - Preliminary Blood Culture (Wb) - Anticubital Right No growth in 48 hours. 06/14/18 11:55 Blood Culture - Preliminary Blood Culture (Wb) - Anticubital Left No growth in 48 hours. 06/14/18 12:37 Urine Culture - Final Urine Catheter - Grande Klebsiella pneumoniae sp pneum Escherichia coli Laboratory Tests Past 24 Hrs 06/17/18 06/17/18 06:50 06:50 WBC 12.6 H RBC 3.14 L Hgb 8.1 L Hct 26.5 L MCV 84.4 MCH 25.8 L MCHC 30.6 L RDW 15.4 H RDW Differential 48.1 H Plt Count 292 MPV 8.4 Immature Gran % (Auto) 1.000 H Neut % (Auto) 79.5 H Lymph % (Auto) 5.[address] [place] % (Auto) 11.3 H Eos % (Auto) 2.4 Baso % (Auto) 0.2 Absolute Neuts (auto) 10.0 H Absolute Lymphs (auto) 0.71 L Total Counted Not Reportable Sodium 136 Potassium 4.6 Chloride 105 Carbon Dioxide 22.0 Anion Gap 9 BUN 18 Creatinine 0.67 Estim Creat Clear Calc 38.94 Est GFR (MDRD) Af Amer 111 Est GFR (MDRD) Non-Af 92 BUN/Creatinine Ratio 26.7 H Glucose 91 Calcium 8.1 L POC Glucose 06/17/18 06/17/18 06/16/18 11:36 06:36 20:33 POC Glucose 125 H 95 138 H 06/16/18 16:26 POC Glucose 160 H Discharge Diet: Low fat/ Low Cholesterol Weight Bearing Status: Weight bearing as tolerated Call your doctor if you observe: Fever of 101 or Higher, Shortness of breath, Chest pain, Increased palpitations (irregular heartbeat) Home Medications: Medications to take at Discharge Diphenoxylate/Atrop [Lomotil] 1 tablet PO BID PRN PRN 04/04/16 Ropinirole HCl [Requip Xl] 8 mg PO DAILY 04/04/16 Ibuprofen [Ibu] 800 mg PO PRN PRN 06/13/18 Carbidopa/Levodopa 25/100 [Sinemet 25/100] 2 tablet PO TIDAC 06/14/18 Citalopram [Celexa] 10 mg PO DAILY 06/14/18 Amoxicillin/Potassium Clav [Amox-Clav 875-125 mg Tablet] 1 each PO BID #10 tablet 06/17/18 Following Prescrptions Were Given to Patient: Amoxicillin/Potassium Clav [Amox-Clav 875-125 mg Tablet] 1 each PO BID #10 tablet Primary Care Physician: Laney Horvath DO [Primary Care Provider] - Please follow up with your Primary Care Physician in: 1-2 weeks Please Follow Up With: Arpita Interiano DPM When: 1-2 weeks Patient Instructions: Understanding Urinary Tract Infections (UTIs) Disposition: Detention facility Minutes spent on discharge:: 40 Patient Condition:: Stable Medical Necessity - Tobacco Use Smoking Status: Never smoker Meaningful Use Info Meaningful Use Diagnoses (Choose all that apply): None applicable Code Visit Inpatient E&M: 80962 Disch Hosp
--- NOTE | 2018-06-17 13:44 | NURSING ---
PT C/O PAIN L SHOULDER/UE, EDEMA L HAND - DR NICHOLS NOTIFIED & NEW ORDER RECEIVED.
[2018-06-17 14:00] VITALS: BP 95/53; PULSE 76; RESP 18; TEMP 37.2; O2SAT 92
[2018-06-17] MEDS: oxyCODONE 5 MG Tablet PO (14:18)
--- NOTE | 2018-06-17 14:37 | RAD_ITS ---
STUDY: X-RAY - LEFT SHOULDER REASON FOR EXAM: Female, 72 years old. Pain and swelling TECHNIQUE: Two view(s) of the LEFT shoulder were obtained. COMPARISON: None. FINDINGS: There are moderate degenerative changes in the glenohumeral joint. There is hypertrophic osteoarthrosis of the acromioclavicular joint with inferior osseous spur formation. No acute abnormalities are seen in the visualized clavicle. No acute abnormalities are seen in the visualized humerus. There is marked soft tissue swelling in the left upper arm. There are mild chronic changes in the visualized left lung. RAD/Shoulder min 2 Views IMPRESSION: There are moderate degenerative changes in the glenohumeral joint, and there are marked degenerative changes in the acromioclavicular joint. No acute osseous abnormalities are seen. There is marked soft tissue swelling in the left upper arm. Electronically Signed: Cortney Stack MD at 15:44 EST Tel Direct: [phone], Service support ,
--- NOTE | 2018-06-17 14:55 | RAD_ITS ---
STUDY: X-RAY - LEFT HUMERUS REASON FOR EXAM: Female, 72 years old. Pain and swelling TECHNIQUE: Two view(s) of the LEFT upper arm were obtained. COMPARISON: None. FINDINGS: Bones: There are no acute osseous abnormalities. Joints: There are moderate degenerative changes in the left shoulder. Soft tissues: There is marked soft tissue swelling. RAD/Humerus min 2 Views IMPRESSION: There is marked soft tissue swelling in the left upper arm without evidence of an acute osseous abnormality. There are moderate degenerative changes in the left shoulder. Electronically Signed: Cortney Stack MD at 15:38 EST Tel Direct: [phone], Service support ,
--- NOTE | 2018-06-17 15:02 | CASEMGMT ---
Social Work Note SW received message from Adali at [facility] stating she is able to accept pt today. SW updated pt and pt's daughter Tomasa present in room. Pt gave this worker permission to speak to her in front of her guest. SW informed pt and Tomasa that pt has been accepted into [facility] and explained to Tomasa that a referral was sent to [facility] but they are unable to accept. SW explained Medicare coverage at [facility]. Pt and Tomasa state understanding. Pt informed this worker that she wants to know what is going on with her hand. SW explained that this worker can relay message to RN and physician regarding pt's hand. SW updated RN Allie that pt had concerns regarding her hand. SW completed convalescent 7000 in [facility]. SW waiting for x-ray and x-ray results for pt before faxing discharge paperwork and before setting up transportation. Plan: If medically cleared, pt is able to discharge to [facility] today for rehabilitation Maria Luisa Silva CHIEF CLERK SHELTER, HEAVY EQUIPMENT MECHANIC
--- NOTE | 2018-06-17 16:03 | VDUE_ITS ---
Reason For Study: LUE swelling/pain Left Proximal Left jugular vein is spontaneous, widely patent, phasic, with no intraluminal echogenicity noted. Left subclavian vein is spontaneous, widely patent, phasic, with no intraluminal echogenicity noted. Left Arm Left axillary vein is spontaneous, patent, phasic, competent, compressible and demonstrates augmentation. Left brachial vein is compressible. Left cephalic vein is compressible. Left basilic vein is compressible. Left Lower Arm Left radial vein is compressible. Left ulnar vein is compressible. Interpretation Summary No evidence for acute deep venous thrombosis[left] upper extremity with patent and compressible cephalic and basilic veins. Ordering Physician: Meenu Nowak Referring Physician: Laney Horvath M.D. Performed By: Soni Coyle RVT ?
--- NOTE | 2018-06-17 16:14 | CASEMGMT ---
Social Work Note RN Allie informed this worker that physician ordered additional test for pt. SW updated patient care secretary Parisa that once pt is medically cleared she is able to discharge to [facility]. Green sheet on chart. Pre previous notes, convalescent 7000 is completed in [facility]. Transportation form on chart. Plan: Discharge to [facility] once medically cleared Maria Luisa Silva FISH BAILER, RADIO DIVISION CAPTAIN
[2018-06-17 16:45] LABS: Bedside Glucose 120 mg/dL (70-110)
--- NOTE | 2018-06-17 17:03 | PCM.PN.HOSP ---
Patient Problems: Active and Suspected Problems Sepsis (Acute) UTI (urinary tract infection) (Acute) СВЕТЛАНА (acute kidney injury) (Acute) Subjective: Patient seen and examined. She complained of pain and swelling in her LUE. She does have a history of rotator cuff injury which is chronic. She denied any fever or chills, and cough or chest pain, shortness of breath, abdominal pain, any diarrhea vomiting. Review of systems otherwise negative. Vitals/I&O's: Vital Signs Temp Pulse Resp BP Pulse Ox 99.0 F 76 18 95/53 L 92 06/17/18 14:00 06/17/18 14:00 06/17/18 14:00 06/17/18 14:00 06/17/18 14:00 Oxygen Delivery Method Room Air Weight: 199 lb 15.348 oz Body Mass Index (BMI) 37.8 Intake and Output for Last 24 Hours 06/15/18 06/16/18 06/17/18 23:59 23:59 23:59 Intake Total 4604 / 4604 2045 / 2045 Output Total 1425 / 1425 300 / 300 Balance 3179 / 3179 1745 / 1745 General: Alert, Oriented x3, Cooperative, No apparent distress HEENT: Atraumatic, PERRLA, EOMI, Normocephalic Oral: Moist Mucosa Neck: Supple, No JVD, Negative Carotid Bruits Lungs: Clear to auscultation, Normal air movement, No rhonchi, No wheeze, No rales Cardiovascular: Regular rate, Regular Rhythm, Normal S1, Normal S2, No murmurs Abdomen: Bowel Sounds Present, Soft, Non Tender, Non-Distended, No Hepato-splenomegaly Extremities: No clubbing, No cyanosis, No Calf Tenderness, - - Mild swelling and tenderness of left shoulder. Skin: No rashes, No breakdown Musculoskeletal: No Tenderness to Palpation of Joints or Extremities Lymphatic: No Cervical, Supraclavicular, or Inguinal Adenopathy Neurological: Cranial nerves II-XII grossly intact, Neuro grossly intact, Motor Exam 5/5 strength throughout Psych/Mental Status: Normal Affect, Appropriate, Alert and oriented to time, place, person, mood and affect Microbiology Past 72 Hours 06/14/18 11:55 Blood Culture (Wb) - Anticubital Right Blood Culture - Preliminary No growth in 48 hours. 06/14/18 11:55 Blood Culture (Wb) - Anticubital Left Blood Culture - Preliminary No growth in 48 hours. 06/14/18 12:37 Urine Catheter - [place] Urine Culture - Final Klebsiella pneumoniae sp pneum Escherichia coli Laboratory Results 06/16/18 20:33: POC Glucose 138 H 06/17/18 06:36: POC Glucose 95 06/17/18 06:50: WBC 12.6 H, RBC 3.14 L, Hgb 8.1 L, Hct 26.5 L, MCV 84.4, MCH 25.8 L, MCHC 30.6 L, RDW 15.4 H, RDW Differential 48.1 H, Plt Count 292, MPV 8.4, Immature Gran % (Auto) 1.000 H, Neut % (Auto) 79.5 H, Lymph % (Auto) 5.6 L, [place] % (Auto) 11.3 H, Eos % (Auto) 2.4, Baso % (Auto) 0.2, Absolute Neuts (auto) 10.0 H, Absolute Lymphs (auto) 0.71 L, Total Counted Not Reportable 06/17/18 06:50: Sodium 136, Potassium 4.6, Chloride 105, Carbon Dioxide 22.0, Anion Gap 9, BUN 18, Creatinine 0.67, Estim Creat Clear Calc 38.94, Est GFR (MDRD) Af Amer 111, Est GFR (MDRD) Non-Af 92, BUN/Creatinine Ratio 26.7 H, Glucose 91, Calcium 8.1 L 06/17/18 11:36: POC Glucose 125 H 06/17/18 16:40: POC Glucose 120 H Diagnostic Data Chest X-Ray 06/14/18 11:45 IMPRESSION: Normal x-ray examination of the chest. Electronically Signed: Henry Khan DO at 12:19 EDT Tel , Service support , Shoulder X-Ray 06/17/18 14:37 IMPRESSION: There are moderate degenerative changes in the glenohumeral joint, and there are marked degenerative changes in the acromioclavicular joint. No acute osseous abnormalities are seen. There is marked soft tissue swelling in the left upper arm. Electronically Signed: Cortney Stack MD at 15:44 EST Tel Direct: [phone], Service support , Humerus X-Ray 06/17/18 14:55 IMPRESSION: There is marked soft tissue swelling in the left upper arm without evidence of an acute osseous abnormality. There are moderate degenerative changes in the left shoulder. Electronically Signed: Cortney Stack MD at 15:38 EST Tel Direct: [phone], Service support , Current Medications Carbidopa/Levodopa (Sinemet) 2 tablet PO TIDAC [facility] Last Admin: 06/17/18 11:58 Dose: 2 tablet Citalopram Hydrobromide (Celexa) 10 mg PO DAILY [facility] Last Admin: 06/17/18 09:02 Dose: 10 mg Dextrose (D50w Syringe) 0 gm IV X1 PRN; Protocol PRN Reason: Hypoglycemia Diphenoxylate HCl/Atropine (Lomotil) 1 tablet PO BID PRN PRN PRN Reason: Diarrhea Glucagon () 1 mg IM .X1 PRN PRN Reason: Hypoglycemia Heparin Sodium (Porcine) (Heparin Na) 5,000 unit SC Q12 [facility] Last Admin: 06/17/18 09:03 Dose: 5,000 unit Sodium Chloride () 1,000 mls @ 125 mls/hr IV .Q8H [facility] Last Admin: 06/17/18 05:25 Dose: 125 mls/hr Ceftriaxone Sodium 2 gm/ (Dextrose) 50 mls @ 100 mls/hr IV Q24 [facility] Last Admin: 06/17/18 09:02 Dose: 100 mls/hr Insulin Human Lispro (Humalog Kwikpen (Bkc)) 0 unit SQ ACHS [facility]; Protocol Last Admin: 06/17/18 11:59 Dose: Not Given Magnesium Hydroxide (Milk Of Magnesia) 30 ml PO DAILY PRN PRN PRN Reason: Constipation Oxycodone HCl (Oxyir) 5 mg PO Q4H PRN PRN PRN Reason: SEVERE PAIN (6-10/10) Last Admin: 06/17/18 14:18 Dose: 5 mg Pramipexole Dihydrochloride (Mirapex) 0.75 mg PO TID [facility] Last Admin: 06/17/18 14:19 Dose: 0.75 mg Sodium Chloride () 5 - 30 ml IV UD PRN PRN Reason: SALINE FLUSH Medical Necessity - Tobacco Use Smoking Status: Never smoker Assessment/Plan All Active Problems Sepsis (Acute) UTI (urinary tract infection) (Acute) СВЕТЛАНА (acute kidney injury) (Acute) Debility (Acute) Walking difficulty due to ankle and foot (Acute) Toe pain, left (Acute) Toe pain, right (Acute) 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ulcer of right lower extremity with necrosis of muscle (Acute) 1. Sepsis due to UTI stable. Urine cultured E. coli and Klebsiella, both sensitive to ceftriaxone had a mild temperature overnight. white cell count down to 12.6 will switch to PO amoxicillin clavulanic acid. to 8.4 this morning. Check iron panel with ferritin. 2. LEft shoulder swelling complains of left shoulder pain and swelling. Has chronic left rotator cuff problems. XRay of shoulder and humerus showed soft tissue swelling and chronic arthritic changes will get DUplex of LUE to rule out DVT. 3. AK I: Was due to dehydration.resolved 4. Hyponatremia: Resolved. 5. Chronic lymphedema and chronic wounds of lower extremities. wound care on board. To follow up with Dr Interiano on discharge. 6. Type 2 diabetes mellitus: A1c 6.3. Diet controlled. On insulin sliding scale. Accu-Cheks AC at bedtime. 7. Parkinson's disease: on Sinemet 8. Morbid obesity: BMI is 37.8. Patient counselled on diet and exercise. Prophylaxis: Heparin Disposition: DC to SN[facility] if DUplex is negative. Discharge on 5 day course of PO amoxicillin clavulanic acid 875/125 1 tab bid x 5 days.
--- NOTE | 2018-06-17 17:12 | PN_ITS ---
Patient Problems: Active and Suspected Problems Sepsis (Acute) UTI (urinary tract infection) (Acute) СВЕТЛАНА (acute kidney injury) (Acute) Subjective: Patient seen and examined. She complained of pain and swelling in her LUE. She does have a history of rotator cuff injury which is chronic. She denied any fever or chills, and cough or chest pain, shortness of breath, abdominal pain, any diarrhea vomiting. Review of systems otherwise negative. Vitals/I&O's: Vital Signs Temp Pulse Resp BP Pulse Ox 99.0 F 76 18 95/53 L 92 06/17/18 14:00 06/17/18 14:00 06/17/18 14:00 06/17/18 14:00 06/17/18 14:00 Oxygen Delivery Method Room Air Weight: 199 lb 15.348 oz Body Mass Index (BMI) 37.8 Intake and Output for Last 24 Hours 06/15/18 06/16/18 06/17/18 23:59 23:59 23:59 Intake Total 4604 / 4604 2045 / 2045 Output Total 1425 / 1425 300 / 300 Balance 3179 / 3179 1745 / 1745 General: Alert, Oriented x3, Cooperative, No apparent distress HEENT: Atraumatic, PERRLA, EOMI, Normocephalic Oral: Moist Mucosa Neck: Supple, No JVD, Negative Carotid Bruits Lungs: Clear to auscultation, Normal air movement, No rhonchi, No wheeze, No rales Cardiovascular: Regular rate, Regular Rhythm, Normal S1, Normal S2, No murmurs Abdomen: Bowel Sounds Present, Soft, Non Tender, Non-Distended, No Hepato- splenomegaly Extremities: No clubbing, No cyanosis, No Calf Tenderness, - - Mild swelling and tenderness of left shoulder. Skin: No rashes, No breakdown Musculoskeletal: No Tenderness to Palpation of Joints or Extremities Lymphatic: No Cervical, Supraclavicular, or Inguinal Adenopathy Neurological: Cranial nerves II-XII grossly intact, Neuro grossly intact, Motor Exam 5/5 strength throughout Psych/Mental Status: Normal Affect, Appropriate, Alert and oriented to time, place, person, mood and affect Microbiology Past 72 Hours 06/14/18 11:55 Blood Culture (Wb) - Anticubital Right Blood Culture - Preliminary No growth in 48 hours. 06/14/18 11:55 Blood Culture (Wb) - Anticubital Left Blood Culture - Preliminary No growth in 48 hours. 06/14/18 12:37 Urine Catheter - [place] Urine Culture - Final Klebsiella pneumoniae sp pneum Escherichia coli Laboratory Results 06/16/18 20:33: POC Glucose 138 H 06/17/18 06:36: POC Glucose 95 06/17/18 06:50: WBC 12.6 H, RBC 3.14 L, Hgb 8.1 L, Hct 26.5 L, MCV 84.4, MCH 25.8 L, MCHC 30.6 L, RDW 15.4 H, RDW Differential 48.1 H, Plt Count 292, MPV 8.4, Immature Gran % (Auto) 1.000 H, Neut % (Auto) 79.5 H, Lymph % (Auto) 5.6 L, Ceiba % (Auto) 11.3 H, Eos % (Auto) 2.4, Baso % (Auto) 0.2, Absolute Neuts (auto) 10.0 H, Absolute Lymphs (auto) 0.71 L, Total Counted Not Reportable 06/17/18 06:50: Sodium 136, Potassium 4.6, Chloride 105, Carbon Dioxide 22.0, Anion Gap 9, BUN 18, Creatinine 0.67, Estim Creat Clear Calc 38.94, Est GFR (MDRD) Af Amer 111, Est GFR (MDRD) Non-Af 92, BUN/Creatinine Ratio 26.7 H, Glucose 91, Calcium 8.1 L 06/17/18 11:36: POC Glucose 125 H 06/17/18 16:40: POC Glucose 120 H Diagnostic Data Chest X-Ray 06/14/18 11:45 IMPRESSION: Normal x-ray examination of the chest. Electronically Signed: Henry Khan DO at 12:19 EDT Tel , Service support , Shoulder X-Ray 06/17/18 14:37 IMPRESSION: There are moderate degenerative changes in the glenohumeral joint, and there are marked degenerative changes in the acromioclavicular joint. No acute osseous abnormalities are seen. There is marked soft tissue swelling in the left upper arm. Electronically Signed: Cortney Stack MD at 15:44 EST Tel Direct: [phone], Service support , Humerus X-Ray 06/17/18 14:55 IMPRESSION: There is marked soft tissue swelling in the left upper arm without evidence of an acute osseous abnormality. There are moderate degenerative changes in the left shoulder. Electronically Signed: Cortney Stack MD at 15:38 EST Tel Direct: [phone], Service support , Current Medications Carbidopa/Levodopa (Sinemet) 2 tablet PO TIDAC [facility] Last Admin: 06/17/18 11:58 Dose: 2 tablet Citalopram Hydrobromide (Celexa) 10 mg PO DAILY [facility] Last Admin: 06/17/18 09:02 Dose: 10 mg Dextrose (D50w Syringe) 0 gm IV X1 PRN; Protocol PRN Reason: Hypoglycemia Diphenoxylate HCl/Atropine (Lomotil) 1 tablet PO BID PRN PRN PRN Reason: Diarrhea Glucagon () 1 mg IM .X1 PRN PRN Reason: Hypoglycemia Heparin Sodium (Porcine) (Heparin Na) 5,000 unit SC Q12 [facility] Last Admin: 06/17/18 09:03 Dose: 5,000 unit Sodium Chloride () 1,000 mls @ 125 mls/hr IV .Q8H [facility] Last Admin: 06/17/18 05:25 Dose: 125 mls/hr Ceftriaxone Sodium 2 gm/ (Dextrose) 50 mls @ 100 mls/hr IV Q24 [facility] Last Admin: 06/17/18 09:02 Dose: 100 mls/hr Insulin Human Lispro (Humalog Kwikpen (Bkc)) 0 unit SQ ACHS [facility]; Protocol Last Admin: 06/17/18 11:59 Dose: Not Given Magnesium Hydroxide (Milk Of Magnesia) 30 ml PO DAILY PRN PRN PRN Reason: Constipation Oxycodone HCl (Oxyir) 5 mg PO Q4H PRN PRN PRN Reason: SEVERE PAIN (6-10/10) Last Admin: 06/17/18 14:18 Dose: 5 mg Pramipexole Dihydrochloride (Mirapex) 0.75 mg PO TID [facility] Last Admin: 06/17/18 14:19 Dose: 0.75 mg Sodium Chloride () 5 - 30 ml IV UD PRN PRN Reason: SALINE FLUSH Medical Necessity - Tobacco Use Smoking Status: Never smoker Assessment/Plan All Active Problems Sepsis (Acute) UTI (urinary tract infection) (Acute) СВЕТЛАНА (acute kidney injury) (Acute) Debility (Acute) Walking difficulty due to ankle and foot (Acute) Toe pain, left (Acute) Toe pain, right (Acute) 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ulcer of right lower extremity with necrosis of muscle (Acute) 1. Sepsis due to UTI * stable. Urine cultured E. coli and Klebsiella, both sensitive to ceftriaxone * had a mild temperature overnight. * white cell count down to 12.6 * will switch to PO amoxicillin clavulanic acid. * to 8.4 this morning. Check iron panel with ferritin. 2. LEft shoulder swelling * complains of left shoulder pain and swelling. Has chronic left rotator cuff problems. * XRay of shoulder and humerus showed soft tissue swelling and chronic arthritic changes * will get DUplex of LUE to rule out DVT. 3. AK I: Was due to dehydration.resolved 4. Hyponatremia: Resolved. 5. Chronic lymphedema and chronic wounds of lower extremities. * wound care on board. To follow up with Dr Interiano on discharge. * 6. Type 2 diabetes mellitus: A1c 6.3. Diet controlled. On insulin sliding scale. Accu-Cheks AC at bedtime. 7. Parkinson's disease: on Sinemet 8. Morbid obesity: BMI is 37.8. Patient counselled on diet and exercise. Prophylaxis: Heparin Disposition: DC to [facility] if DUplex is negative. Discharge on 5 day course of PO amoxicillin clavulanic acid 875/125 1 tab bid x 5 days.
--- NOTE | 2018-06-17 18:17 | NURSING ---
REPORT CALLED TO FR[facility]
== END 2018-06-17 19:39 | disposition skilled nursing facility (03) | DRG 872 ==
LOC: ED 11:56 → MS3 13:46
PROVIDERS: Internal Medicine; Admitting Provider Family Medicine; Emergency Provider Emergency Medicine; Family Provider Internal Medicine; PCP Internal Medicine; Visit Provider Student in an Organized Health Care Education/Training Program
DX: A41.9 Sepsis, unspecified organism (principal); N39.0 Urinary tract infection, site not specified; N17.9 Acute kidney failure, unspecified; E87.1 Hypo-osmolality and hyponatremia; L97.929 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chronic ulcer of unspecified part of left lower leg with unspecified severity; L97.919 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chronic ulcer of unspecified part of right lower leg with unspecified severity; Z68.37 Body mass index [BMI] 37.0-37.9, adult; G20 Parkinson's disease; I10 Essential (primary) hypertension; E66.01 Morbid (severe) obesity due to excess calories; I89.0 Lymphedema, not elsewhere classified; E11.42 Type 2 diabetes mellitus with diabetic polyneuropathy; I87.2 Venous insufficiency (chronic) (peripheral); B96.1 Klebsiella pneumoniae [K. pneumoniae] as the cause of diseases classified elsewhere; B96.20 Unspecified Escherichia coli [E. coli] as the cause of diseases classified elsewhere; D64.9 Anemia, unspecified; E86.0 Dehydration
CPT/HCPCS: 11042; 11045; 36415; 71045; 73030; 73060; 80048; 80053; 81001; 82728; 82962; 83036; 83540; 83550; 83605; 84484; 85014; 85018; 85025; 87040; 87077; 87086; 87088; 87186; 93005; 93971; 97162; 97165; 97530; 99285; J7030; J0696

== ENCOUNTER 2018-07-08 13:45 | Day surgery (SDC) | payer MEDICARE, OTHER, SELFPAY ==
[2018-06-14 14:36] VITALS: BMI 37.8
[2018-07-08] VITALS (7 sets, daily range): BP systolic 114–164; BP diastolic 57–84; PULSE 80–88; RESP 15–16; TEMP 36.5–37.5; O2SAT 95–99; BMI 41.9
[2018-07-08] MEDS: Bupivacaine Mpf 0.5% 30 ML VIAL (15:40)
--- NOTE | 2018-07-08 17:10 | DCINST_ITS ---
Discharge Diet: No Restrictions Keep extremity elevated above heart level: Left Leg, Right Leg Call your doctor if your incision/area has: Continuous Slow Oozing, Sudden Increased Bleeding, Increased Pain/ Swelling, Increased Redness, Foul Smelling Discharge, Swelling at the incision site Call your doctor if you observe: Fever of 101 or Higher, Calf discomfort, Uncontrolled pain, - - wound vac leaking Cleanse incision/area with: Keep Dressing Clean & Dry - keep right wound vac continuous 125 mmHg at all times for one week keep left dressing intact for one week. only reapply secondary dressing if strikethrough is noted. do not distrupt anything under the adaptic layer which is the advanced wound care product, - Allergies/Adverse Reactions: Allergies No Known Allergies Allergy (Verified 06/14/18 11:33) Medications to take at Discharge Diphenoxylate/Atrop [Lomotil] 1 tablet PO BID PRN PRN 04/04/16 Ropinirole HCl [Requip Xl] 8 mg PO DAILY 04/04/16 Ibuprofen [Ibu] 800 mg PO PRN PRN 06/13/18 Carbidopa/Levodopa 25/100 [Sinemet 25/100] 2 tablet PO TIDAC 06/14/18 Citalopram [Celexa] 10 mg PO DAILY 06/14/18 Amoxicillin/Potassium Clav [Amox-Clav 875-125 mg Tablet] 1 each PO BID #10 tablet 06/17/18 Orders to be completed after discharge: Type & Screen Time Frame: 06/20/18, Location: None Selected Primary Care Physician: Laney Horvath DO [Primary Care Provider] - Test Results: Test results from this visit will be discussed in further detail at your follow- up appointment, if applicable. Please Follow Up With: Arpita Interiano DPM When: next Wed at wound healing center Proposed Discharge Date: 07/08/18
--- NOTE | 2018-07-08 17:15 | OP.PN_ITS ---
Problem List (1) Delayed wound healing Status: Chronic (2) Lymphedema Status: Chronic (3) Ulcer of left lower extremity with fat layer exposed Status: Chronic (4) Type 2 diabetes mellitus with diabetic polyneuropathy Status: Chronic (5) 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ulcer of right lower extremity with fat layer exposed Status: Chronic (6) Edema leg Status: Chronic Immediate Post-Op Note Date of Procedure: 07/08/18 - Surgeon: Arpita Interiano DPM. Machine Maintenance Repairer: Maik Savage PGY1 Primary Surgeon/Physician: Arpita Interiano DPM agricultural consultant: none Pre-Operative Diagnosis: chronic right and left leg ulcers with fat layer exposed Post-Operative Diagnosis: chronic right and left leg ulcers with fat layer exposed Surgery/Procedure Performed:: Subcutaneous excisional debridement of right and left legs. Application of advanced wound care product, amniofill, of right and left legs. Application of wound VAC to right leg Description of Surgical Findings:: Hemostasis: Anatomic debridement, no tourniquet utilized Materials: 3-0 nylon, 2000 mg amniofill, adaptic Complications: None Estimated Blood Loss: <150 mL Specimen's removed: none Type of Anesthesia:: Local - Preoperative: 1:1 mixture of 1% lidocaine plain and 0.5% Marcaine plain administered in subdermal injection to all ulcer sites bilateral legs, 20 cc - Admit VTE Documentation VTE Present on Admission: No VTE Mechan Device Prophylaxis: None VTE Pharm Prophylaxis ordered?: No Reason prophylaxis not ordered:: Treatment Not Indicated
--- NOTE | 2018-07-08 22:24 | PCM.OPRPT ---
Problem List (1) Delayed wound healing Status: Chronic (2) Lymphedema Status: Chronic (3) Ulcer of left lower extremity with fat layer exposed Status: Chronic (4) Type 2 diabetes mellitus with diabetic polyneuropathy Status: Chronic (5) 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ulcer of right lower extremity with fat layer exposed Status: Chronic (6) Edema leg Status: Chronic Report of Operation Date of Procedure: 07/08/18 - Surgeon: Arpita Interiano DPM. Protector Plate Attacher: Maik Savage PGY1 Pre-Operative Diagnosis: chronic right and left leg ulcers with fat layer exposed Post-Operative Diagnosis: chronic right and left leg ulcers with fat layer exposed Surgery/Procedure Performed:: Subcutaneous excisional debridement of right and left legs. Application of advanced wound care product, amniofill, of right and left legs. Application of wound VAC to right leg Description of Surgical Findings:: Hemostasis: Anatomic debridement, no tourniquet utilized Materials: 3-0 nylon, 2000 mg amniofill, adaptic Complications: None fuel conversion technician: none Type of Anesthesia:: Local - Preoperative: 1:1 mixture of 1% lidocaine plain and 0.5% Marcaine plain administered in subdermal injection to all ulcer sites bilateral legs, 20 cc Specimen's removed: none Estimated Blood Loss (mL): <150 mL Description of Procedure: Indications: This 72-year-old female with significant past medical history of diabetes, congestive heart failure, lymphedema, chronic leg swelling, Parkinson's disease suffers from ongoing delayed bilateral leg ulcers. She underwent a standard wound care plan including serial debridements, offloading, diet improvement, and advanced wound care product applications in the outpatient setting. She has ongoing delayed healing and does not have any local signs of infection at this time. Her pulses remain palpable. She was cleared by her medical doctor and I reviewed her history and physical exam. Her preoperative diagnostic data was also reviewed and she is stable at this time. The preoperative indications, planned procedure, possible benefits, risks, complications, and anticipated healing time management were discussed in detail with patient. She understands complications include but are not limited to the following: Infection, continued delayed or nonhealing, scarring, pain, swelling, need for additional surgery, loss of limb, function, or light, allergic reaction, blood clot. No guarantees were made. Informed surgical consent and surgical limbs were signed. I answered all her questions. This is a planned stage procedure. Procedure in detail: The patient was transported to the operating room via cart and placed on the operating table in the supine position. Final verification was then performed via the timeout procedure including patient, planned procedure, and limb designation. MAC anesthesia was initiated by the anesthesia team. Local anesthesia was administered by the podiatry team as noted above. Lateral lower extremities were prepped and draped in the usual aseptic manner and surgery began as the following: Versa jet on setting 8 was used to perform a subcutaneous excisional debridement to all ulcer sites to remove nonviable fibrous tissue, devitalized subcutaneous tissue, biofilm, slough. Pressure was applied to maintain hemostasis and she appeared to have tolerated this well. There was no necrosis, infection, or uncontrolled bleeding noted. The ulcer bed appeared granular with some interspersed fibrous tissue. There was a circumferential right limb ulcer pattern. The ulcer debridement measurements were as the following on the right lower limb: Pre-debridement 12.5 cm x 38.4 cm x 0.7 cm and post debridement 13.0 cm x 38.5 cm x 0.8 cm. The ulcer measurements were as the following on the left lower limb cluster (posterior lateral): 7.9 cm x 13 cm x 0.6 cm pre-debridement and 8.0 cm x 13.1 cm x 0.7 cm post debridement. The recently debrided ulcer sites were next copiously irrigated with normal saline. Next advanced wound healing product, amniofill, was applied copiously to cover all debridement sites; 2000 mg was utilized. This was secured in place with Adaptic and Steri-Strips and further moistened with a saline gauze. This was further secured with nylon suture to the right limb. Next, a secondary dressing was additionally applied to the left limb including gauze, abdominal pads, Kerlix, and Jimy wraps. A wound VAC was carefully applied to the right limb and was set at 125 mmHg continuous. No leaks were noted and this was well adhered. After procedure: The patient tolerated the procedure and anesthesia well. She was transferred to the PACU with vital signs stable and intact to bilateral lower extremities. Her capillary refill time remains brisk to all digits of bilateral foot and there was no pulsatile bleeding noted prior to dressing application. She was advised to ice and elevate for pain and inflammation management. She was advised to keep her dressings clean, dry, and intact until she comes to the wound healing center next Saturday. Postoperative orders were entered electronically. She understands this is likely a staged procedure and is part of a comprehensive wound healing plan. She was advised to continue to keep pressure directly off the sites and to continue with her diabetes and Parkinson's medical management with the primary care provider at the [facility]. Special measures were applied to apply a special fluid repellent dressing to prevent further wound contamination from her urinary incontinence. Arpita Interiano DPM, [facility]
--- OUTSIDE RECORDS SUMMARY | 2018-09-03 02:58 | XMS RPT_ITS ---
:1945 Author Organization OHIP Support Name Relationship Address Phone R Unavailable Unavailable Unavailable Buchanan, Nnamdi Unavailable Unavailable + R Unavailable Unavailable Unavailable Buchanan, Nnamdi Unavailable Unavailable + R Unavailable Unavailable Unavailable Buchanan, Nnamdi Unavailable Unavailable + R Unavailable Unavailable Unavailable Buchanan, Nnamdi Unavailable Unavailable + R Unavailable Unavailable Unavailable BUCHANAN, NNAMDI Unavailable Unavailable + R Unavailable Unavailable Unavailable Buchanan, Nnamdi Unavailable Unavailable + [place] [address] R Unavailable Unavailable Unavailable BUCHANAN, NNAMDI Unavailable Unavailable + [place] [address] R Unavailable Unavailable Unavailable Buchanan, Nnamdi Unavailable Unavailable + [place] [address] R Unavailable Unavailable Unavailable BUCHANAN, NNAMDI Unavailable Unavailable + [place] [address] R Unavailable Unavailable Unavailable BUCHANAN, NNAMDI Unavailable Unavailable + [place] [address] R Unavailable Unavailable Unavailable BUCHANAN, NNAMDI Unavailable Unavailable + [place] [address] R Unavailable Unavailable Unavailable Buchanan, Nnamdi Unavailable Unavailable + BUCHANAN, NNAMDI Unavailable Unavailable + [place] [address] S Unavailable Unavailable Unavailable BUCHANAN, NNAMDI Unavailable [address] + [place] [address] S Unavailable Unavailable Unavailable BUCHANAN, NNAMDI Unavailable [address] + [place] [address] S Unavailable Unavailable Unavailable BUCHANAN, NNAMDI Unavailable [address] + [place] [address] S Unavailable Unavailable Unavailable BUCHANAN, NNAMDI Unavailable [address] + [place] [address] S Unavailable Unavailable Unavailable BUCHANAN, NNAMDI Unavailable [address] + [place] [address] S Unavailable Unavailable Unavailable BUCHANAN, NNAMDI Unavailable [address] + [place] [address] S Unavailable Unavailable Unavailable BUCHANAN, NNAMDI Unavailable [address] + [place] [address] S Unavailable Unavailable Unavailable BUCHANAN, NNAMDI Unavailable [address] + [place] [address] S Unavailable Unavailable Unavailable BUCHANAN, NNAMDI Unavailable [address] + [place] [address] S Unavailable Unavailable Unavailable BUCHANAN, NNAMDI Unavailable [address] + [place] [address] S Unavailable Unavailable Unavailable BUCHANAN, NNAMDI Unavailable [address] + [place] [address] S Unavailable Unavailable Unavailable Care Team Providers Name Role Phone Luke Interianoanna Attending Unavailable Yuliet, Laney Primary Care Unavailable Fascione, Arpita Attending Unavailable Yuliet, Laney Primary Care Unavailable Fascione, Arpita Attending Unavailable Yuliet, Laney Primary Care Unavailable Fascione, Arpita Attending Unavailable Yuliet, Laney Primary Care Unavailable Fascione, Arpita Attending Unavailable Yuliet, Laney Primary Care Unavailable Fascione, Arpita Attending Unavailable Yuliet, Laney Primary Care Unavailable Fascione, Arpita Attending Unavailable Yuliet, Laney Primary Care Unavailable Fascione, Arpita Attending Unavailable Yuliet, Laney Primary Care Unavailable Fascione, Arpita Attending Unavailable Yuliet, Laney Primary Care Unavailable Fascione, Arpita Attending Unavailable Yuliet, Laney Primary Care Unavailable Fascione, Arpita Attending Unavailable Yuliet, Laney Primary Care Unavailable Fascione, Arpita Attending Unavailable Yuliet, Laney Primary Care Unavailable Fascione, Arpita Attending Unavailable Fascione, Arpita Referring Unavailable Yuliet, Laney Primary Care Unavailable Fascione, Arpita Attending Unavailable Yuliet, Laney Primary Care Unavailable Yuliet, Laney Primary Care Unavailable Kotsonis, Rolando F Admitting Unavailable Koram, Meenu Fozia Attending Unavailable Fascione, Arpita Consulting Unavailable Kotsonis, Rolando F Admitting Unavailable Yuliet, Laney Primary Care Unavailable Kotsonis, Rolando F Consulting Unavailable Kotsonis, Rolando F Attending Unavailable Kotsonis, Rolando F Admitting Unavailable Paintsil, Olanta Attending Unavailable Yuliet, Laney Primary Care Unavailable Paintsil, Olanta Consulting Unavailable Kotsonis, Rolando F Admitting Unavailable Koram, Meenu Fozia Attending Unavailable Yuliet, Laney Primary Care Unavailable Koram, Meenu Fozia Consulting Unavailable Kotsonis, Rolando F Admitting Unavailable Koram, Meenu Fozia Attending Unavailable Yuliet, Laney Primary Care Unavailable Koram, Meenu Fozia Consulting Unavailable Gonsalez, Nick Attending Unavailable Gonsalez, Nick Attending Unavailable Gonsalez, Nick Attending Unavailable Gonsalez, Nick Attending Unavailable Cebul, Oscar Attending Unavailable Koram, Meenu Fozia Referring Unavailable PROBLEMS PROBLEMS DATE TYPE CONDITION / CODE ATTENDING STATUS SOURCE 07/23/2018 Unknown 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, Active [place] diabetes mellitus [facility]ly [facility] with other skin Hospital ulcer / Repository E11.622(ICD-10) 07/08/2018 Unknown L97.922 - Fascione, Active [place] 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[facility] chronic ulcer of Hospital unspecified part Repository of left lower leg with fat layer exposed / L97.922(ICD-10) 06/17/2018 Unknown L97.919 - Koram, Meenu Fozia Active [place] 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[facility] chronic ulcer of Hospital unspecified part Repository of right lower leg with unspecified severity / L97.919(ICD-10) 07/15/2018 Unknown M79.622 - Pain in CebulOscar Active [place] left upper arm / Community M79.622(ICD-10) Hospital Repository 02/09/2018 Unknown L97.929 - Fascione, Active [place] 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[facility] chronic ulcer of Hospital unspecified part Repository of left lower leg with unspecified severity / L97.929(ICD-10) PROCEDURES PROCEDURES No Procedure Records FoundRESULTS RESULTS OPERATIVE REPORT Observed: 07/13/2018 Status: F Source: [place] 1:11 PM [facility] Medical Records Department [address] [place] [address] Operative Report 07/08/18 2224 MR#: [id number] Acct: [id number] Name: MARIA G DILLON Rep #: [id number] : 1945 72 From: Arpita Interinao DPM PCP: Laney Horvath DO Status: DEP [facility] Y Location: [facility] Problem List (1) Delayed wound healing Status: Chronic (2) Lymphedema Status: Chronic (3) Ulcer of left lower extremity with fat layer exposed Status: Chronic (4) Type 2 diabetes mellitus with diabetic polyneuropathy Status: Chronic (5) 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ulcer of right lower extremity with fat layer exposed Status: Chronic (6) Edema leg Status: Chronic Report of Operation Date of Procedure: 07/08/18 - Surgeon: Arpita Interiano DPM. [employer] Assembler: Maik Savage PGY1 Pre-Operative Diagnosis: chronic right and left leg ulcers with fat layer exposed Post-Operative Diagnosis: chronic right and left leg ulcers with fat layer exposed Surgery/Procedure Performed:: Subcutaneous excisional debridement of right and left legs. Application of advanced wound care product, amniofill, of right and left legs. Application of wound VAC to right leg Description of Surgical Findings:: Hemostasis: Anatomic debridement, no tourniquet utilized Materials: 3-0 nylon, 2000 mg amniofill, adaptic Complications: None cost clerk: none Type of Anesthesia:: Local - Preoperative: 1:1 mixture of 1% lidocaine plain and 0.5% Marcaine plain administered in subdermal injection to all ulcer sites bilateral legs, 20 cc Specimen's removed: none Estimated Blood Loss (mL): <150 mL Description of Procedure: Indications: This 72-year-old female with significant past medical history of diabetes, congestive heart failure, lymphedema, chronic leg swelling, Parkinson's disease suffers from ongoing delayed bilateral leg ulcers. She underwent a standard wound care plan including serial debridements, offloading, diet improvement, and advanced wound care product applications in the outpatient setting. She has ongoing delayed healing and does not have any local signs of infection at this time. Her pulses remain palpable. She was cleared by her medical doctor and I reviewed her history and physical exam. Her preoperative diagnostic data was also reviewed and she is stable at this time. The preoperative indications, planned procedure, possible benefits, risks, complications, and anticipated healing time management were discussed in detail with patient. She understands complications include but are not limited to the following: Infection, continued delayed or nonhealing, scarring, pain, swelling, need for additional surgery, loss of limb, function, or light, allergic reaction, blood clot. No guarantees were made. Informed surgical consent and surgical limbs were signed. I answered all her questions. This is a planned stage procedure. Procedure in detail: The patient was transported to the operating room via cart and placed on the operating table in the supine position. Final verification was then performed via the timeout procedure including patient, planned procedure, and limb designation. MAC anesthesia was initiated by the anesthesia team. Local anesthesia was administered by the podiatry team as noted above. Lateral lower extremities were prepped and draped in the usual aseptic manner and surgery began as the following: Versa jet on setting 8 was used to perform a subcutaneous excisional debridement to all ulcer sites to remove nonviable fibrous tissue, devitalized subcutaneous tissue, biofilm, slough. Pressure was applied to maintain hemostasis and she appeared to have tolerated this well. There was no necrosis, infection, or uncontrolled bleeding noted. The ulcer bed appeared granular with some interspersed fibrous tissue. There was a circumferential right limb ulcer pattern. The ulcer debridement measurements were as the following on the right lower limb: Pre-debridement 12.5 cm x 38.4 cm x 0.7 cm and post debridement 13.0 cm x 38.5 cm x 0.8 cm. The ulcer measurements were as the following on the left lower limb cluster (posterior lateral): 7.9 cm x 13 cm x 0.6 cm pre-debridement and 8.0 cm x 13.1 cm x 0.7 cm post debridement. The recently debrided ulcer sites were next copiously irrigated with normal saline. Next advanced wound healing product, amniofill, was applied copiously to cover all debridement sites; 2000 mg was utilized. This was secured in place with Adaptic and Steri-Strips and further moistened with a saline gauze. This was further secured with nylon suture to the right limb. Next, a secondary dressing was additionally applied to the left limb including gauze, abdominal pads, Kerlix, and Jimy wraps. A wound VAC was carefully applied to the right limb and was set at 125 mmHg continuous. No leaks were noted and this was well adhered. After procedure: The patient tolerated the procedure and anesthesia well. She was transferred to the PACU with vital signs stable and intact to bilateral lower extremities. Her capillary refill time remains brisk to all digits of bilateral foot and there was no pulsatile bleeding noted prior to dressing application. She was advised to ice and elevate for pain and inflammation management. She was advised to keep her dressings clean, dry, and intact until she comes to the wound healing center next Saturday. Postoperative orders were entered electronically. She understands this is likely a staged procedure and is part of a comprehensive wound healing plan. She was advised to continue to keep pressure directly off the sites and to continue with her diabetes and Parkinson's medical management with the primary care provider at [facility]. Special measures were applied to apply a special fluid repellent dressing to prevent further wound contamination from her urinary incontinence. Arpita Interiano DPM, [facility] 07/13/18 1311 <Electronically signed by Arpita Interiano DPM> Date Arpita Interiano DPM CC: Arpita Interiano DPM; Laney Horvath DO Signed CBC-COMPLETE BLOOD CNT Collected: 07/12/2018 Status: F Source: [place] NO DIFF 6:35 AM [facility] REPOSITORY TYPE CODE TESTS RESULT OUT OF RANGE REFERENCE UNITS LAB L100.1000 4.4-11.0 K/mm3 Normal WBC 6.1 LAB L100.1200 4.2-5.4 M/mm3 Low RBC 3.27 LAB L100.1300 12.0-15.0 g/dl Low HGB 8.4 LAB L100.1400 37-47 % Low HCT 27.6 LAB L100.1500 81-99 fL Normal MCV 84.4 LAB L100.1600 27.0-32.0 pg Low MCH 25.7 LAB L100.1700 32-36 g/gl Low MCHC 30.4 LAB L100.1810 11.6-14.6 % High RDW CV 16.5 LAB L100.1820 35.1-43.9 fl High RDW SD 51.0 LAB L100.1900 150-450 K/mm3 Normal PLT 251 LAB L100.2000 6.2-12.0 fl Normal MPV 7.9 Performed By: #### L100.0500 #### [facility] [address] [place], [place], [address] BASIC METABOLIC Collected: 07/12/2018 Status: F Source: [place] PROFILE (BMP) 6:35 AM [facility] REPOSITORY TYPE CODE TESTS RESULT OUT OF RANGE REFERENCE UNITS LAB L501.0100 74-106 mg/dL Normal GLU 82 Result Comment: Please note revised GLUCOSE reference range effective 2017. LAB L501.1000 7-18 mg/dL High BUN 25 LAB L501.1100 0.55-1.02 mg/dL Normal CREAT,SERUM 0.63 Result Comment: The validity of the calculated GFR AND GFRAA in patients over 70 years has not been determined. Clinical correlation is essential. LAB L501.1110 >60 mL/min Normal EST GFR 98 Result Comment: Non- GFR Calc LAB L501.1115 >60 mL/min Normal EST GFR - AA 119 Result Comment: GFR Calc LAB L501.1300 10-20 RATIO High BUN/CRE 39.4 LAB L501.2200 8.5-10.1 mg/dL Low CA 7.7 LAB L501.5300 136-145 mmol/L NA Normal 138 LAB L501.5600 3.5-5.1 mmol/L K Normal 4.0 LAB L501.5900 98-107 mmol/L CL Normal 103 LAB L501.6100 21.0-32.0 mmol/L Normal CO2 28.0 LAB L501.6200 5-15 Normal GAP 7 Performed By: #### L500.2500 #### [facility] [address] [place], [place], [address] HEMOGLOBIN A1C Collected: 07/10/2018 Status: F Source: [place] 6:55 AM [facility] REPOSITORY Order Comment: ROOM 133 TYPE CODE TESTS RESULT OUT OF RANGE REFERENCE UNITS LAB L501.9985 4.2-6.3 % Normal HGB A1C 5.8 Performed By: #### L501.9985 #### [facility] [address] [place], [address] HEMOGLOBIN A1C Collected: 07/09/2018 Status: F Source: [place] 6:50 AM [facility] REPOSITORY Order Comment: 133 TYPE CODE TESTS RESULT OUT OF RANGE REFERENCE UNITS LAB L501.9985 4.2-6.3 % Normal HGB A1C 5.9 Performed By: #### L501.9985 #### [facility] [address] [place], [address] DISCHARGE INSTRUCTION Observed: 07/08/2018 Status: F Source: [place] 5:10 PM [facility] REPOSITORY [facility] Medical Records Department [address] [address] Instructions for Home/Discharge Instructions 07/08/18 1708 MR#: [id number] Acct: [id number] Name: MARIA G DILLON Rep #: [id number] : 1945 72 From: Arpita Interiano DPM PCP: Laney Horvath DO Status: REG [facility] Discharge Diet: No Restrictions Keep extremity elevated above heart level: Left Leg, Right Leg Call your doctor if your incision/area has: Continuous Slow Oozing, Sudden Increased Bleeding, Increased Pain/ Swelling, Increased Redness, Foul Smelling Discharge, Swelling at the incision site Call your doctor if you observe: Fever of 101 or Higher, Calf discomfort, Uncontrolled pain, - - wound vac leaking Cleanse incision/area with: Keep Dressing Clean AND Dry - keep right wound vac continuous 125 mmHg at all times for one week keep left dressing intact for one week. only reapply secondary dressing if strikethrough is noted. do not distrupt anything under the adaptic layer which is the advanced wound care product, - Allergies/Adverse Reactions: Allergies No Known Allergies Allergy (Verified 06/14/18 11:33) Medications to take at Discharge Diphenoxylate/Atrop [Lomotil] 1 tablet PO BID PRN PRN 04/04/16 Ropinirole HCl [Requip Xl] 8 mg PO DAILY 04/04/16 Ibuprofen [Ibu] 800 mg PO PRN PRN 06/13/18 Carbidopa/Levodopa 25/100 [Sinemet 25/100] 2 tablet PO TIDAC 06/14/18 Citalopram [Celexa] 10 mg PO DAILY 06/14/18 Amoxicillin/Potassium Clav [Amox-Clav 875-125 mg Tablet] 1 each PO BID #10 tablet 06/17/18 Orders to be completed after discharge: Type AND Screen Time Frame: 06/20/18, Location: None Selected Primary Care Physician: Laney Horvath DO [Primary Care Provider] - Test Results: Test results from this visit will be discussed in further detail at your follow-up appointment, if applicable. Please Follow Up With: Arpita Interiano DPM When: next Wed at wound healing center Proposed Discharge Date: 07/08/18 07/08/18 1710 <Electronically signed by Arpita Interiano DPM> Date Arpita Interiano DPM CC: Laney Horvath DO TYPE AND SCREEN Collected: 07/08/2018 Status: F Source: [place] 2:29 PM [facility] REPOSITORY Order Comment: Reason for Type AND Screen/Red Cells: SURGERY Surgery Date: 07/08/18 Time: 1430 Other - use comments: UNKNOWN - ORDER DID NOT COME THRU Type of Surgery: OTHER TYPE CODE TESTS RESULT OUT OF RANGE REFERENCE UNITS LAB B10.0800 O Normal BLOOD TYPE GEL POSITIVE LAB B100.4000 Normal Antibody NEGATIVE Screen Performed By: #### B101.7450 #### [facility] [address] [place], [address] CBC-COMPLETE BLOOD CNT Collected: 06/24/2018 Status: F Source: [place] NO DIFF 6:20 AM [facility] REPOSITORY Order Comment: 133 TYPE CODE TESTS RESULT OUT OF RANGE REFERENCE UNITS LAB L100.1000 4.4-11.0 K/mm3 Normal WBC 11.0 LAB L100.1200 4.2-5.4 M/mm3 Low RBC 3.32 LAB L100.1300 12.0-15.0 g/dl Low HGB 8.7 LAB L100.1400 37-47 % Low HCT 29.1 LAB L100.1500 81-99 fL Normal MCV 87.7 LAB L100.1600 27.0-32.0 pg Low MCH 26.2 LAB L100.1700 32-36 g/gl Low MCHC 29.9 LAB L100.1810 11.6-14.6 % High RDW CV 15.7 LAB L100.1820 35.1-43.9 fl High RDW SD 48.2 LAB L100.1900 150-450 K/mm3 Normal PLT 414 LAB L100.2000 6.2-12.0 fl Normal MPV 8.5 Performed By: #### L100.0500 #### [facility] [address] [place], [address] BASIC METABOLIC Collected: 06/24/2018 Status: F Source: [place] PROFILE (BMP) 6:20 AM [facility] REPOSITORY Order Comment: 133 TYPE CODE TESTS RESULT OUT OF RANGE REFERENCE UNITS LAB L501.0100 74-106 mg/dL Normal GLU 81 Result Comment: Please note revised GLUCOSE reference range effective 2017. LAB L501.1000 7-18 mg/dL Normal BUN 17 LAB L501.1100 0.55-1.02 mg/dL Normal CREAT,SERUM 0.60 Result Comment: The validity of the calculated GFR AND GFRAA in patients over 70 years has not been determined. Clinical correlation is essential. LAB L501.1110 >60 mL/min Normal EST GFR 106 Result Comment: Non- GFR Calc LAB L501.1115 >60 mL/min Normal EST GFR - AA 128 Result Comment: GFR Calc LAB L501.1300 10-20 RATIO High BUN/CRE 28.6 LAB L501.2200 8.5-10.1 mg/dL Low CA 7.9 LAB L501.5300 136-145 mmol/L NA Normal 141 LAB L501.5600 3.5-5.1 mmol/L K Normal 3.8 LAB L501.5900 98-107 mmol/L CL Normal 106 LAB L501.6100 21.0-32.0 mmol/L Normal CO2 28.0 LAB L501.6200 5-15 Normal GAP 7 Performed By: #### L500.2500 #### [facility] [address] [place], [place], [address] DISCHARGE SUMMARY Observed: 06/18/2018 Status: F Source: [place] 2:49 PM [facility] REPOSITORY [facility] Medical Records Department [address] [place] [address] Discharge Summary 06/17/18 1325 MR#: [id number] Acct: [id number] Name: MARIA G DILLON Rep #: [id number] : 1945 72 From: Meenu Nowak MD PCP: Laney Horvath DO Status: DIS IN Y Location: [place] [id number] Discharge Date and Diagnosis Date of Admission: 06/14/18 Date of Discharge: 06/17/18 - Primary Discharge Diagnosis Active and Suspected Problems Sepsis (Acute) UTI (urinary tract infection) (Acute) СВЕТЛАНА (acute kidney injury) (Acute) - Secondary Discharge Diagnosis Chronic Problems Delayed wound healing (Chronic) Lymphedema (Chronic) Morbid obesity (Chronic) Lymphedema (Chronic) Cellulitis of right leg (Chronic) Ulcer of left lower extremity with fat layer exposed (Chronic) Right leg pain (Chronic) Left leg pain (Chronic) Swelling of left lower extremity (Chronic) Swelling of right lower extremity (Chronic) Edema, leg (Chronic) Chronic venous insufficiency (Chronic) Dependent edema (Chronic) Venous ulcer of left leg (Chronic) Venous ulcer of right leg (Chronic) Lymphedema of left leg (Chronic) Lymphedema of right lower extremity (Chronic) Obesity (BMI 30-39.9) (Chronic) Parkinsons disease (Chronic) Immobility (Chronic) Urinary incontinence (Chronic) Cellulitis of leg, right (Chronic) Tinea unguium (Chronic) Type 2 diabetes mellitus with diabetic polyneuropathy (Chronic) Physical deconditioning (Chronic) Tinea unguium (Chronic) Delayed wound healing (Chronic) Tibialis posterior dysfunction (Chronic) Walking difficulty due to ankle and foot (Chronic) Pain, foot, left, chronic (Chronic) Left tibialis posterior tendonitis (Chronic) Ulcer of left lower extremity with fat layer exposed (Chronic) Left ankle pain (Chronic) Left tibialis tendonitis (Chronic) Chronic ulcer of right leg with fat layer exposed (Chronic) Lymphedema of lower extremity (Chronic) Venous insufficiency (chronic) (peripheral) (Chronic) Diabetes mellitus with polyneuropathy (Chronic) 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ulcer of right lower extremity with fat layer exposed (Chronic) Ulcer of right leg (Chronic) Malnutrition (Chronic) Edema leg (Chronic) Hospital Course and Treatment Imaging Results: Diagnostic Data Chest X-Ray 06/14/18 11:45 IMPRESSION: Normal x-ray examination of the chest. Electronically Signed: Henry DO Bill at 12:19 EDT Tel , Service support , Consultations 06/14/18 15:05 Consult: Onc/Wound/sales support specialist Routine Comment: Operations: None Procedures: None Summary of Care Provided: The patient is a 72 year old F with a history of chronic venous insufficiency and lymph remedy as well as morbid obesity. She also has a history of Parkinson's disease diabetes mellitus as well as hypertension. She was admitted with a complaint of weakness as well as tiredness and fatigue. Labs in the ED showed evidence of UTI. She was admitted and managed for sepsis due to UTI on account of elevated white cell count and tachypnea. Urine culture Klebsiella and E. coli. She was started on IV ceftriaxone which was eventually transitioned to p.o. Augmentin on discharge. She remained stable however said that she did not think she could take care of herself at home as she lives alone. She therefore opted to go to a fdc. Patient was accepted at the [facility] and was discharged there on 06/17/2018. She was discharged with a 5-day course of p.o. amoxicillin clavulanic acid. She is to follow-up with her primary care doctor. During admission, wound care was consulted on account of her chronic lower extremity ulcers. She is also to follow-up with wound care on out patient basis. Patient seen and examined prior to discharge. She had no complaints at time of review of this morning but later in the day complaint of left shoulder pain which he said is due to a chronic rotator cuff injury. X-rays of her left shoulder and humerus only showed chronic arthritic changes and soft tissue swelling. She had duplex of her left upper extremity which was negative for DVT. She denied any cough or chest pain, shortness of breath, abdominal pain, diarrhea vomiting. Review of systems otherwise negative. Vital Signs Height 5 ft 1 in Weight: 199 lb 15.348 oz Weight in Pounds 200.0 lbs Pulse Ox 92 General: Alert, Oriented x3, Cooperative, No apparent distress HEENT: Atraumatic, PERRLA, EOMI, Normocephalic Oral: Moist Mucosa Neck: Supple, No JVD, Negative Carotid Bruits Lungs: Clear to auscultation, Normal air movement, No rhonchi, No wheeze, No rales Cardiovascular: Regular rate, Regular Rhythm, Normal S1, Normal S2, No murmurs Abdomen: Bowel Sounds Present, Soft, Non Tender, Non-Distended, No Hepato-splenomegaly Extremities: No clubbing, No cyanosis, No edema, Capillary Refill Less than 3 Seconds Skin: No rashes, No breakdown Musculoskeletal: No Tenderness to Palpation of Joints or Extremities Lymphatic: No Cervical, Supraclavicular, or Inguinal Adenopathy Neurological: Cranial nerves II-XII grossly intact Psych/Mental Status: Normal Affect, Appropriate, Alert and oriented to time, place, person, mood and affect - Physical Exam Vital Signs Temp Pulse Resp BP Pulse Ox 99.2 F H 82 18 98/49 L 92 06/17/18 07:27 06/17/18 07:27 06/17/18 07:27 06/17/18 07:27 06/17/18 07:27 Oxygen Delivery Method Room Air Weight: 199 lb 15.348 oz Body Mass Index (BMI) 37.8 Intake and Output for Last 24 Hours Intake Total 4604 / 4604 855 / 855 Output Total 1425 / 1425 300 / 300 Balance 3179 / 3179 555 / 555 Microbiology Past 72 Hours 06/14/18 11:55 Blood Culture - Preliminary Blood Culture (Wb) - Anticubital Right No growth in 48 hours. 06/14/18 11:55 Blood Culture - Preliminary Laboratory Tests Past 24 Hrs WBC 12.6 H RBC 3.14 L Hgb 8.1 L Hct 26.5 L MCV 84.4 MCH 25.8 L MCHC 30.6 L RDW 15.4 H POC Glucose POC Glucose 125 H 95 138 H POC Glucose 160 H Discharge Diet: Low fat/ Low Cholesterol Weight Bearing Status: Weight bearing as tolerated Call your doctor if you observe: Fever of 101 or Higher, Shortness of breath, Chest pain, Increased palpitations (irregular heartbeat) Home Medications: Medications to take at Discharge Diphenoxylate/Atrop [Lomotil] 1 tablet PO BID PRN PRN 04/04/16 Ropinirole HCl [Requip Xl] 8 mg PO DAILY 04/04/16 Ibuprofen [Ibu] 800 mg PO PRN PRN 06/13/18 Carbidopa/Levodopa 25/100 [Sinemet 25/100] 2 tablet PO TIDAC 06/14/18 Citalopram [Celexa] 10 mg PO DAILY 06/14/18 Amoxicillin/Potassium Clav [Amox-Clav 875-125 mg Tablet] 1 each PO BID #10 tablet 06/17/18 Following Prescrptions Were Given to Patient: Amoxicillin/Potassium Clav [Amox-Clav 875-125 mg Tablet] 1 each PO BID #10 tablet Primary Care Physician: Laney Horvath DO [Primary Care Provider] - Please follow up with your Primary Care Physician in: 1-2 weeks Please Follow Up With: Arpita Interiano DPM When: 1-2 weeks Patient Instructions: Understanding Urinary Tract Infections (UTIs) Disposition: Group Home facility Minutes spent on discharge:: 40 Patient Condition:: Stable Medical Necessity - Tobacco Use Smoking Status: Never smoker Meaningful Use Info Meaningful Use Diagnoses (Choose all that apply): None applicable Code Visit Inpatient E AND M: 86510 Disch Hosp 06/18/18 1449 <Electronically signed by Meenu Nowak MD> Date Meenu Nowak MD Cosigner Signature (if applicable): Date CC: Laney Horvath DO; Meenu Nowak MD Signed VENOUS DUPLEX UPPER Observed: 06/17/2018 Status: F Source: [place] EXTREMITY 6:03 PM [facility] Cardiovascular Services [address] [address] Venous Duplex US, Unilateral 06/17/18 1616 MR#: [id number] Acct: [id number] Name: MARIA G DILLON Rep #: [id number] : 1945 72 From: Oscar Wadsworth MD Attending Dr: Meenu Nowak MD Status: ADM IN Ordering Dr: Meenu Nowak MD Date: 06/17/18 Location: MS3 Sex: F C Admitted: 06/14/18 Reason For Study: LUE swelling/pain Left Proximal Left jugular vein is spontaneous, widely patent, phasic, with no intraluminal echogenicity noted. Left subclavian vein is spontaneous, widely patent, phasic, with no intraluminal echogenicity noted. Left Arm Left axillary vein is spontaneous, patent, phasic, competent, compressible and demonstrates augmentation. Left brachial vein is compressible. Left cephalic vein is compressible. Left basilic vein is compressible. Left Lower Arm Left radial vein is compressible. Left ulnar vein is compressible. Interpretation Summary No evidence for acute deep venous thrombosis[left] upper extremity with patent and compressible cephalic and basilic veins. Ordering Physician: Meenu Nowak Referring Physician: Laney Horvath M.D. Performed By: Soni Coyle RVT ? 06/17/181802 Date Oscar Wadsworth MD CC: Laney Horvath DO; Meenu Nowak MD Date Dictated: 06/17/18 1616 Date Transcribed: 06/17/181802 Base Brander: Signed BEDSIDE GLUCOSE Collected: 06/17/2018 Status: F Source: [place] 4:40 PM [facility]POS[facility] TYPE CODE TESTS RESULT OUT OF REFERENCE UNITS RANGE LAB L501.080 70-110 mg/dL High BEDSIDE GLU 120 Result Comment: MANAGEMENT OF PATIENT CARE PER NURSING PROTOCOL Performed By: #### L501.080 #### [facility] Point of Care [address] [place] [address] HUMERUS MIN 2 VIEWS Observed: 06/17/2018 Status: F Source: [place] 1:43 PM [facility] Imaging Services [address] [place] [address] Humerus min 2 Views MR#: [id number] Acct: [id number] Name: MARIA G DILLON Rep #: [id number] : 1945 F 72 From: Cortney Stack MD PCP: Laney Horvath DO Status: ADM IN Study: Humerus min 2 Views Date of Exam: 06/17/18 Exam# [id number] Ordering Dr: Meenu Nowak MD STUDY: X-RAY - LEFT HUMERUS REASON FOR EXAM: Female, 72 years old. Pain and swelling TECHNIQUE: Two view(s) of the LEFT upper arm were obtained. COMPARISON: None. FINDINGS: Bones: There are no acute osseous abnormalities. Joints: There are moderate degenerative changes in the left shoulder. Soft tissues: There is marked soft tissue swelling. RAD/Humerus min 2 Views IMPRESSION: There is marked soft tissue swelling in the left upper arm without evidence of an acute osseous abnormality. There are moderate degenerative changes in the left shoulder. Electronically Signed: Cortney Stack MD at 15:38 EST Tel Direct: [phone], Service support , CC: Laney Horvath DO; Meenu Nowak MD Base Brander: Signed SHOULDER MIN 2 VIEWS Observed: 06/17/2018 Status: F Source: [place] 1:43 PM [facility] Imaging Services [address] [place] [address] Shoulder min 2 Views MR#: [id number] Acct: [id number] Name: MARIA G DILLON Rep #: [id number] : 1945 F 72 From: Cortney Stack MD PCP: Laney Horvath DO Status: ADM IN Study: Shoulder min 2 Views Date of Exam: 06/17/18 Exam# [id number] Ordering Dr: Meenu Nowak MD STUDY: X-RAY - LEFT SHOULDER REASON FOR EXAM: Female, 72 years old. Pain and swelling TECHNIQUE: Two view(s) of the LEFT shoulder were obtained. COMPARISON: None. FINDINGS: There are moderate degenerative changes in the glenohumeral joint. There is hypertrophic osteoarthrosis of the acromioclavicular joint with inferior osseous spur formation. No acute abnormalities are seen in the visualized clavicle. No acute abnormalities are seen in the visualized humerus. There is marked soft tissue swelling in the left upper arm. There are mild chronic changes in the visualized left lung. RAD/Shoulder min 2 Views IMPRESSION: There are moderate degenerative changes in the glenohumeral joint, and there are marked degenerative changes in the acromioclavicular joint. No acute osseous abnormalities are seen. There is marked soft tissue swelling in the left upper arm. Electronically Signed: Cortney Stack MD at 15:44 EST Tel Direct: [phone], Service support , CC: Laney Horvath DO; Meenu Nowak MD Base Brander: Signed CONSULTATION Observed: 06/17/2018 Status: F Source: [place] 1:34 PM [facility] Medical Records Department [address] [place] [address] Consultation 06/17/18 1321 MR#: [id number] Acct: [id number] Name: MARIA G DILLON Rep #: [id number] : 1945 72 From: Arpita Interiano DPM PCP: Laney Horvath DO Status: ADM IN Y Location: MS3 [id number] Problem List (1) Chronic ulcer of right leg with fat layer exposed Status: Chronic (2) Ulcer of left lower extremity with fat layer exposed Status: Chronic (3) Lymphedema Status: Chronic (4) Physical deconditioning Status: Chronic (5) Delayed wound healing Status: Chronic (6) Venous insufficiency (chronic) (peripheral) Status: Chronic Reason for Consult Date of Consultation: 06/17/18 Reason for Consultation: Leg ulcers chronic History of Present Illness: The patient is a 72 year old female with significant past medical history of acute kidney injury, dehydration, diabetes, Parkinson's, obesity, history of anemia was admitted for sepsis secondary to her urinary tract infection. I saw her bedside this afternoon for follow-up of bilateral chronic leg ulcers. She is previously well known to me in the wound healing center and she was previously tentatively scheduled for a versa jet ulcer debridement with application of advanced wound care product for this upcoming Saturday. Her right lower extremity ulcer sites are more tender than the left side and this is consistent with previous exams. She denies fever, chill, nausea at this time. She complains of continued leg swelling and even left hand swelling. She denies falling or any other traumatic event prior to admission to the hospital. She recently had her leg ulcer dressing changed by ear nose and throat specialist nurse, Katerin. Past Medical History Past Medical History (Chronic Problems): Chronic Problems Delayed wound healing (Chronic) Lymphedema (Chronic) Morbid obesity (Chronic) Lymphedema (Chronic) Cellulitis of right leg (Chronic) Ulcer of left lower extremity with fat layer exposed (Chronic) Right leg pain (Chronic) Left leg pain (Chronic) Swelling of left lower extremity (Chronic) Swelling of right lower extremity (Chronic) Edema, leg (Chronic) Chronic venous insufficiency (Chronic) Dependent edema (Chronic) Venous ulcer of left leg (Chronic) Venous ulcer of right leg (Chronic) Lymphedema of left leg (Chronic) Lymphedema of right lower extremity (Chronic) Obesity (BMI 30-39.9) (Chronic) Parkinsons disease (Chronic) Immobility (Chronic) Urinary incontinence (Chronic) Cellulitis of leg, right (Chronic) Tinea unguium (Chronic) Type 2 diabetes mellitus with diabetic polyneuropathy (Chronic) Physical deconditioning (Chronic) Tinea unguium (Chronic) Delayed wound healing (Chronic) Tibialis posterior dysfunction (Chronic) Walking difficulty due to ankle and foot (Chronic) Pain, foot, left, chronic (Chronic) Left tibialis posterior tendonitis (Chronic) Ulcer of left lower extremity with fat layer exposed (Chronic) Left ankle pain (Chronic) Left tibialis tendonitis (Chronic) Chronic ulcer of right leg with fat layer exposed (Chronic) Lymphedema of lower extremity (Chronic) Venous insufficiency (chronic) (peripheral) (Chronic) Diabetes mellitus with polyneuropathy (Chronic) 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ulcer of right lower extremity with fat layer exposed (Chronic) Ulcer of right leg (Chronic) Malnutrition (Chronic) Edema leg (Chronic) Allergies No Known Allergies Allergy (Verified 06/14/18 11:33) Home Medications: Ambulatory Orders Medication Instructions Recorded Surgical History: total knee arthroplasty - bilateral Psychiatric History: Anxiety ASPHALT PAVER History: No pertinent ASPHALT PAVER history Smoking Status: Never smoker Alcohol: None Drugs: None Review of Systems Constitutional: Reports: Weakness. Denies: Chills, Fever Cardiovascular: Denies: Claudication - Admits lack of walking Respiratory: Denies: Shortness of Breath Gastrointestinal: Denies: Nausea Musculoskeletal: Reports: Leg Pain Skin: Reports: Wounds Neurological: Reports: Balance problems, Incoordination Psychiatric: Reports: Anxiety Hematologic/ Lymphatic: Reports: Anemia Patient Problems: Active and Suspected Problems Sepsis (Acute) UTI (urinary tract infection) (Acute) СВЕТЛАНА (acute kidney injury) (Acute) - Physical Exam General: Alert, Oriented x3, Cooperative Extremities: Capillary Refill Less than 3 Seconds, Diminished Peripheral Pulses, Edema - Bilateral lower extremity lymphedema consistent with previous examinations Skin: - - Dressings are clean dry and intact without strikethrough odor or adjacent erythema streaking Musculoskeletal: No Tenderness to Palpation of Joints or Extremities, Muscle Wasting Psych/Mental Status: Normal Affect, Appropriate Vital Signs Temp Pulse Resp BP Pulse Ox 99.2 F H 82 18 98/49 L 92 06/17/18 07:27 06/17/18 07:27 06/17/18 07:27 06/17/18 07:27 06/17/18 07:27 Oxygen Delivery Method Room Air Weight: 90.7 kg Body Mass Index (BMI) 37.8 Intake and Output for Last 24 Hours Intake Total 4604 / 4604 855 / 855 Output Total 1425 / 1425 300 / 300 Balance 3179 / 3179 555 / 555 Microbiology Past 72 Hours 06/14/18 11:55 Blood Culture - Preliminary Blood Culture (Wb) - Anticubital Right No growth in 48 hours. 06/14/18 11:55 Blood Culture - Preliminary Laboratory Tests Past 24 Hrs WBC 12.6 H RBC 3.14 L Hgb 8.1 L Hct 26.5 L MCV 84.4 MCH 25.8 L MCHC 30.6 L RDW 15.4 H POC Glucose POC Glucose 125 H 95 138 H POC Glucose 160 H Assessment/Plan All Active Problems Sepsis (Acute) UTI (urinary tract infection) (Acute) СВЕТЛАНА (acute kidney injury) (Acute) Debility (Acute) Walking difficulty due to ankle and foot (Acute) Toe pain, left (Acute) Toe pain, right (Acute) 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ulcer of right lower extremity with necrosis of muscle (Acute) Bilateral lower extremity ulcers Bilateral lower extremity edema including lymphedema Obesity Diabetes Delayed healing Recent sepsis secondary to urinary tract infection Other comorbidities include Parkinson's, recent acute kidney injury, obesity, difficulty with ambulation and high fall risk I reviewed and discussed her case. Her ulcer photos were reviewed that were obtained yesterday by nurse Conklin in which no local signs of infection are noted. To continue with Aquacel AG dressing changes and cleansing with ear nose and throat specialist. I recommend she keeps additional pressure off of the posterior right leg ulcer by propping pillows behind her thigh and leg. It is noted she does have a complaint of continual right leg pain and this is presumed to be from the wound however she will be monitored for any signs of blood clot or other injury which are not apparent at this time. It is noted her white blood cell count was 12.6 and she is being treated for urinary tract infection at this time. shelter placement is pending. Upon discharge from the medical surgical floor, whether it is to the transitional care unit or outside fdc facility, I am to reschedule her debridement and application of advanced wound care product procedure in the operating room. She will need medical clearance for this procedure under MAC and I recommend waiting until she is medically stable. Please not hesitate to call if you have any questions. Arpita Interiano DPM, [facility] [phone] 06/17/18 9895 <Electronically signed by Arpita Interiano DPM> Date Arpita Interiano DPM Cosigner Signature (if applicable): Date CC: Laney Horvath DO Signed TRANSFER TO EXTENDED Observed: 06/17/2018 Status: F Source: [facility] 1:25 PM [facility] Medical Records Department [address] [place] [address] Transfer to Extended Care MR#: [id number] Acct: [id number] Name: MARIA G DILLON Rep #: [id number] : 1945 72 From: Meenu Nowak MD PCP: Laney Horvath DO Status: ADM IN MARIA G DILLON (Patient) (Health Ins. Claim No.) (Day of Discharge to Facility) Certification of patient admission REQUIRED AT TIME OF ADMISSION. I CERTIFY THAT POST-HOSPITAL ECF SERVICES ARE REQUIRED TO BE GIVEN ON AN IN-PATIENT BASIS BECAUSE OF THE ABOVE NAMED PATIENT'S NEED FOR PENITENTIARY CARE ON A CONTINUING BASIS FOR THE CONDITION(S) FOR WHICH HE/SHE WAS RECEIVING IN-PATIENT HOSPITAL SERVICES PRIOR TO HIS/HER TRANSFER TO THE ECF. 06/17/18 1325 <Electronically signed by Meenu Nowak MD> Date Meenu Nowak MD - Diet 06/14/18 15:05 Diet: Regular Diet Food consistency:: Regular Liquid Consistency:: Regular/Thin - Routine Orders/Code Status Enema Type: Fleetz Enema Frequency: Daily PRN Suppository Type: Dulcolax 10mg Suppository Frequency: Daily PRN O2 Frequency: PRN Keep PO Greater than or Equal to (%): 92 - Wound(s) Right lower leg- medial Wound Type: Stasis Ulcer Right lower leg-lateral Wound Type: Stasis Ulcer Left leg-lateral posterior Wound Type: Stasis Ulcer Left lower leg Wound Type: Stasis Ulcer Left lower leg #2 Wound Type: Stasis Ulcer Left lower leg #3 Wound Type: Stasis Ulcer left posterolateral leg Wound Type: Stasis Ulcer Dressing Change: AntiMicrobial (Aquacel AG, etc) right medial lower leg Wound Type: Stasis Ulcer Dressing Change: AntiMicrobial (Aquacel AG, etc) right posterolateral lower leg Wound Type: Stasis Ulcer Dressing Change: AntiMicrobial (Aquacel AG, etc) - Therapies Weight Bearing: Weight bearing as tolerated Physical Therapy: Eval and Treat Occupational Therapy: Eval and Treat - Allergies/Procedures Done in Hospital Allergies/Adverse Reactions: Allergies No Known Allergies Allergy (Verified 06/14/18 11:33) Procedures: None - Type of Care/Length of Stay Estimated LOS: Convalescent Care Less Than 30 days Type of Care Needed: Skilled Rehab Potential: Fair Prognosis: Fair - Additional Orders/Day of Discharge H AND P will serve as current which was dated: 06/14/18 Day of Discharge: 06/17/18 - Dietary and Speech Recommendations Dietitian Recommendations/Changes: Suggest diet change to 1800 calorie-controlled/cardiac. Suggest Rachid 1 packet BID for wound healing--order from pharmacy. - Follow Up Care Primary Care Physician: Laney Horvath DO [Primary Care Provider] - Please follow up with your Primary Care Physician in: 1-2 weeks 06/17/18 1325 <Electronically signed by Meenu Nowak MD> Date Meenu Nowak MD CC: Laney Horvath DO Signed BEDSIDE GLUCOSE Collected: 06/17/2018 Status: F Source: [place] 11:36 AM [facility] REPOS[facility]ORY TYPE CODE TESTS RESULT OUT OF REFERENCE UNITS RANGE LAB L501.080 70-110 mg/dL High BEDSIDE GLU 125 Result Comment: MANAGEMENT OF PATIENT CARE PER NURSING PROTOCOL Performed By: #### L501.080 #### [facility] Point [facility] Care [address] [place], [place] [address] CBC W/DIFF, AUTOMATED Collected: 06/17/2018 Status: F Source: [place]OB[place] 6:50 AM [facility] REPOS[facility] TYPE CODE TESTS RESULT OUT OF RANGE REFERENCE UNITS LAB L100.1000 4.4-11.0 K/mm3 High WBC 12.6 LAB L100.1200 4.2-5.4 M/mm3 Low RBC 3.14 LAB L100.1300 12.0-15.0 g/dl Low HGB 8.1 LAB L100.1400 37-47 % Low HCT 26.5 LAB L100.1500 81-99 fL Normal MCV 84.4 LAB L100.1600 27.0-32.0 pg Low MCH 25.8 LAB L100.1700 32-36 g/gl Low MCHC 30.6 LAB L100.1810 11.6-14.6 % High RDW CV 15.4 LAB L100.1820 35.1-43.9 fl High RDW SD 48.1 LAB L100.1900 150-450 K/mm3 Normal PLT 292 LAB L100.2000 6.2-12.0 fl Normal MPV 8.4 LAB L100.2100 47-70 % High NEUT% 79.5 LAB L100.2200 19-41 % Low LY% 5.6 LAB L100.2300 0-10 % High MONO% 11.3 LAB L100.2400 0-5 % Normal EO% 2.4 LAB L100.2500 0-1 % Normal BASO% 0.2 LAB L100.2550 0.0-0.9 % High IM GRAN % 1.000 Result Comment: IG% - Immature Granulocytes (promyelocytes, myelocytes and metamyelocytes) > 1% indicates that a LEFT SHIFT is Present. LAB L100.2620 2.0-7.7 X10 3/uL High Absolute Neut 10.0 LAB L100.2720 0.83-4.51 X10 3/ul Low Absolute Lymph 0.71 Performed By: #### L100.0100 #### [facility] [address] [place], [address] BASIC METABOLIC Collected: 06/17/2018 Status: F Source: [place] PROFILE (BMP) 6:50 AM [facility] REPOSITORY TYPE CODE TESTS RESULT OUT OF RANGE REFERENCE UNITS LAB L501.0100 74-106 mg/dL Normal GLU 91 Result Comment: Please note revised GLUCOSE reference range effective 2017. LAB L501.1000 7-18 mg/dL Normal BUN 18 LAB L501.1100 0.55-1.02 mg/dL Normal CREAT,SERUM 0.67 Result Comment: The validity of the calculated GFR AND GFRAA in patients over 70 years has not been determined. Clinical correlation is essential. LAB L501.1110 >60 mL/min Normal EST GFR 92 Result Comment: Non- GFR Calc LAB L501.1115 >60 mL/min Normal EST GFR - AA 111 Result Comment: GFR Calc LAB L501.1255 ml/min Normal Estimated CRCL 38.94 LAB L501.1300 10-20 RATIO High BUN/CRE 26.7 LAB L501.2200 8.5-10 mg/dL Low .1 CA 8.1 LAB L501.5300 136-14 mmol/L Normal 5 NA 136 LAB L501.5600 3.5-5. mmol/L Normal 1 K 4.6 LAB L501.5900 98-107 mmol/L Normal CL 105 LAB L501.6100 21.0-3 mmol/L Normal 2.0 CO2 22.0 LAB L501.6200 5-15 Normal GAP 9 Performed By: #### L500.2500 #### [facility] [address] [place] [address], [id number] BEDSIDE GLUCOSE Collected: 06/17/2018 Status: F Source: [place] 6:36 AM [facility]POS[facility] TYPE CODE TESTS RESULT OUT OF RANGE REFERENCE UNITS LAB L501.080 70-110 mg/dL Normal BEDSIDE GLU 95 Result Comment: MANAGEMENT OF PATIENT CARE PER NURSING PROTOCOL Performed By: #### L501.080 #### [facility] Point of Care [address] [facility] [place], [place] [id number] BEDSIDE GLUCOSE Collected: 06/16/2018 Status: F Source: [place] 8:33 PM [facility]POS[facility]ORY TYPE CODE TESTS RESULT OUT OF REFERENCE UNITS RANGE LAB L501.080 70-110 mg/dL High BEDSIDE GLU 138 Result Comment: MANAGEMENT OF PATIENT CARE PER NURSING PROTOCOL Performed By: #### L501.080 #### [facility] Point of Care [address] [place] [address] BEDSIDE GLUCOSE Collected: 06/16/2018 Status: F Source: [place] 4:26 PM [facility] REPOS[facility]ORY TYPE CODE TESTS RESULT OUT OF REFERENCE UNITS RANGE LAB L501.080 70-110 mg/dL High BEDSIDE GLU 160 Result Comment: MANAGEMENT OF PATIENT CARE PER NURSING PROTOCOL Performed By: #### L501.080 #### [facility] Point of Care [address] [place] [address] 12 LEAD ELECTROCARDIOGRAM Observed: 06/16/2018 Status: F Source: [place] 3:26 PM [facility] Cardiovascular Services [address] [place] [address] [place] [address] 12 Lead EKG 06/14/18 1214 MR#: [id number] Acct: [id number] Name: MARIA G DILLON Rep #: [id number] : 1945 72 From: Jaylan Dunbar MD Attending Dr: Meenu Nowak MD Status: ADM IN Ordering Dr: Quin Pelaez DO Date: 06/14/18 Location: [facility] [place] Sex: F C Admitted: 06/14/18 Test Reason : WEAKNESS Blood Pressure : / mmHG Vent. Rate : 083 BPM Atrial Rate : 083 BPM P-R Int : 178 ms QRS Dur : 094 ms QT Int : 362 ms P-R-T Axes : 012 007 032 degrees QTc Int : 425 ms Normal sinus rhythm Normal ECG Confirmed by SHAYY MCKENZIE, JAYLAN ([id number]), research editor ABBI BLANK ([id number]) on 06/16/2018 3:26:03 PM Referred By: PAM Confirmed By:JAYLAN DUNBAR MD 06/16/18 1526 Date Jaylan Dunbar MD CC: Laney Horvath DO; Meenu Nowak MD; Quin Pelaez DO Signed BEDSIDE GLUCOSE Collected: 06/16/2018 Status: F Source: [place] 11:09 AM [facility] REPOS[facility]ORY TYPE CODE TESTS RESULT OUT OF REFERENCE UNITS RANGE LAB L501.080 70-110 mg/dL High BEDSIDE GLU 138 Result Comment: MANAGEMENT OF PATIENT CARE PER NURSING PROTOCOL Performed By: #### L501.080 #### [facility] Point [place] [address] CBC W/DIFF, AUTOMATED Collected: 06/16/2018 Status: F Source: [place] 7:08 AM [facility] REPOS[facility]ORY TYPE CODE TESTS RESULT OUT OF RANGE REFERENCE UNITS LAB L100.1000 4.4-11.0 K/mm3 High WBC 13.0 LAB L100.1200 4.2-5.4 M/mm3 Low RBC 3.18 LAB L100.1300 12.0-15.0 g/dl Low HGB 8.4 LAB L100.1400 37-47 % Low HCT 27.3 LAB L100.1500 81-99 fL Normal MCV 85.8 LAB L100.1600 27.0-32.0 pg Low MCH 26.4 LAB L100.1700 32-36 g/gl Low MCHC 30.8 LAB L100.1810 11.6-14.6 % High RDW CV 14.8 LAB L100.1820 35.1-43.9 fl High RDW SD 44.8 LAB L100.1900 150-450 K/mm3 Normal PLT 325 LAB L100.2000 6.2-12.0 fl Normal MPV 8.4 LAB L100.2100 47-70 % High NEUT% 83.0 LAB L100.2200 19-41 % Low LY% 4.2 LAB L100.2300 0-10 % Normal MONO% 9.8 LAB L100.2400 0-5 % Normal EO% 2.0 LAB L100.2500 0-1 % Normal BASO% 0.3 LAB L100.2550 0.0-0.9 % Normal IM GRAN % 0.700 Result Comment: IG% - Immature Granulocytes (promyelocytes, myelocytes and metamyelocytes) > 1% indicates that a LEFT SHIFT is Present. LAB L100.2620 2.0-7.7 X10 3/uL High Absolute Neut 10.8 LAB L100.2720 0.83-4.51 X10 3/ul Low Absolute Lymph 0.55 LAB L100.4500 Normal SMEAR COMMENT COMMENT Result Comment: SLIDE SCANNED - LYMPHOPENIA. Performed By: #### L100.0100 #### [facility] [address] [place], [place], [address] BASIC METABOLIC Collected: 06/16/2018 Status: F Source: [place] PROFILE (BMP) 7:08 AM [facility] REPOSITORY TYPE CODE TESTS RESULT OUT OF RANGE REFERENCE UNITS LAB L501.0100 74-106 mg/dL High GLU 145 Result Comment: Fasting Glucose result greater than or equal to 126 mg/dL suggests DIABETES MELLITUS per A.D.A. criteria. Please note revised GLUCOSE reference range effective 2017. LAB L501.1000 7-18 mg/dL High BUN 23 LAB L501.1100 0.55-1.02 mg/dL Normal CREAT,SERUM 0.66 Result Comment: The validity of the calculated GFR AND GFRAA in patients over 70 years has not been determined. Clinical correlation is essential. LAB L501.1110 >60 mL/min Normal EST GFR 93 Result Comment: Non- GFR Calc LAB L501.1115 >60 mL/min Normal EST GFR - AA 113 Result Comment: GFR Calc LAB L501.1255 ml/min Normal Estimated CRCL 38.94 LAB L501.1300 10-20 RATIO High BUN/CRE 34.6 LAB L501.2200 8.5-10 mg/dL Low .1 CA 7.8 LAB L501.5300 136-14 mmol/L Normal 5 NA 136 LAB L501.5600 3.5-5. mmol/L Normal 1 K 4.2 LAB L501.5900 98-107 mmol/L Normal CL 103 LAB L501.6100 21.0-3 mmol/L Normal 2.0 CO2 23.0 LAB L501.6200 5-15 Normal GAP 10 Performed By: #### L500.2500 #### [facility] [address] [place], [place], [address] IRON+IRON BINDING Collected: 06/16/2018 Status: F Source: [place] CAPACITY 7:08 AM [facility] REPOSITORY TYPE CODE TESTS RESULT OUT OF REFERENCE UNITS RANGE LAB L503.6075 250-450 ug/dL Low TIBC 149 LAB L503.6150 50-170 ug/dL Low IRON 16 LAB L503.6250 15.0-55.0 % Low IRON SATURATION 10.7 Performed By: #### L503.6030, L503.6550 #### [facility] [address] [place], [address] FERRITIN Collected: 06/16/2018 Status: F Source: [place]OB[place] 7:08 AM [facility] REPOSITORY TYPE CODE TESTS RESULT OUT OF REFERENCE UNITS RANGE LAB L503.6550 8-252 ng/mL High FERRITIN 262 Performed By: #### L503.6030, L503.6550 #### [facility] [address] [place], [address] BEDSIDE GLUCOSE Collected: 06/16/2018 Status: F Source: [place]OB[place] 6:35 AM [facility] REPOSITORY TYPE CODE TESTS RESULT OUT OF REFERENCE UNITS RANGE LAB L501.080 70-110 mg/dL High BEDSIDE GLU 113 Result Comment: MANAGEMENT OF PATIENT CARE PER NURSING PROTOCOL Performed By: #### L501.080 #### [facility] Point of Care [address] [place] [address] BEDSIDE GLUCOSE Collected: 06/15/2018 Status: F Source: BOB[place] 9:22 PM [facility] REPOSITORY TYPE CODE TESTS RESULT OUT OF REFERENCE UNITS RANGE LAB L501.080 70-110 mg/dL High BEDSIDE GLU 149 Result Comment: MANAGEMENT OF PATIENT CARE PER NURSING PROTOCOL Performed By: #### L501.080 #### [facility] Point of Care [address] [place] [address] BEDSIDE GLUCOSE Collected: 06/15/2018 Status: F Source: BOB[place] 3:50 PM [facility] REPOSITORY TYPE CODE TESTS RESULT OUT OF REFERENCE UNITS RANGE LAB L501.080 70-110 mg/dL High BEDSIDE GLU 206 Result Comment: MANAGEMENT OF PATIENT CARE PER NURSING PROTOCOL Performed By: #### L501.080 #### [facility] Point of Care [address] [place] [address] HH, HEMOGLOBIN AND Collected: 06/15/2018 Status: F Source: BOB[place] HEMATOCRIT 12:10 PM [facility] REPOSITORY TYPE CODE TESTS RESULT OUT OF RANGE REFERENCE UNITS LAB L100.1300 12.0-15.0 g/dl Low HGB 8.2 LAB L100.1400 37-47 % Low HCT 26.0 Performed By: #### L100.0600 #### [facility] [address] [place], [place], [address] BEDSIDE GLUCOSE Collected: 06/15/2018 Status: F Source: BOBBY 11:10 AM [facility] REPOSITORY TYPE CODE TESTS RESULT OUT OF RANGE REFERENCE UNITS LAB L501.080 70-110 mg/dL Normal BEDSIDE GLU 107 Result Comment: MANAGEMENT OF PATIENT CARE PER NURSING PROTOCOL Performed By: #### L501.080 #### [facility] Point of Care [address] [place], [place] [address] CBC W/DIFF, AUTOMATED Collected: 06/15/2018 Status: F Source: BOBBY 6:35 AM [facility] REPOSITORY TYPE CODE TESTS RESULT OUT OF RANGE REFERENCE UNITS LAB L100.1000 4.4-11.0 K/mm3 High WBC 15.2 LAB L100.1200 4.2-5.4 M/mm3 Low RBC 3.01 LAB L100.1300 12.0-15.0 g/dl Low HGB 7.9 LAB L100.1400 37-47 % Low HCT 25.4 LAB L100.1500 81-99 fL Normal MCV 84.4 LAB L100.1600 27.0-32.0 pg Low MCH 26.2 LAB L100.1700 32-36 g/gl Low MCHC 31.1 LAB L100.1810 11.6-14.6 % High RDW CV 14.9 LAB L100.1820 35.1-43.9 fl High RDW SD 44.6 LAB L100.1900 150-450 K/mm3 Normal PLT 322 LAB L100.2000 6.2-12.0 fl Normal MPV 8.6 LAB L100.2100 47-70 % High NEUT% 86.0 LAB L100.2200 19-41 % Low LY% 3.7 LAB L100.2300 0-10 % Normal MONO% 8.6 LAB L100.2400 0-5 % Normal EO% 1.3 LAB L100.2500 0-1 % Normal BASO% 0.1 LAB L100.2550 0.0-0.9 % Normal IM GRAN % 0.300 Result Comment: IG% - Immature Granulocytes (promyelocytes, myelocytes and metamyelocytes) > 1% indicates that a LEFT SHIFT is Present. LAB L100.2620 2.0-7.7 X10 3/uL Absolute Neut High 13.0 LAB L100.2720 0.83-4.51 X10 3/ul Low Absolute Lymph 0.56 LAB L100.5500 ADEQ PLT EST Normal ADEQUATE LAB L100.7000 NORM C AND NORMAL C RED CELL MORPH Normal N CYTIC LAB L100.7600 HYPOCHROMASIA Normal 2+ Performed By: #### L100.0100 #### [facility] [address] [place], [place], [address] BASIC METABOLIC Collected: 06/15/2018 Status: F Source: [place] PROFILE (BMP) 6:35 AM [facility] REPOSITORY TYPE CODE TESTS RESULT OUT OF RANGE REFERENCE UNITS LAB L501.0100 74-106 mg/dL Normal GLU 92 Result Comment: Please note revised GLUCOSE reference range effective 2017. LAB L501.1000 7-18 mg/dL High BUN 31 LAB L501.1100 0.55-1.02 mg/dL Normal CREAT,SERUM 0.82 Result Comment: The validity of the calculated GFR AND GFRAA in patients over 70 years has not been determined. Clinical correlation is essential. LAB L501.1110 >60 mL/min Normal EST GFR 73 Result Comment: Non- GFR Calc LAB L501.1115 >60 mL/min Normal EST GFR - AA 89 Result Comment: GFR Calc LAB L501.1255 ml/min Normal Estimated CRCL 47.48 LAB L501.1300 10-20 RATIO High BUN/CRE 38.0 LAB L501.2200 8.5-10 mg/dL Low .1 CA 7.7 LAB L501.5300 136-14 mmol/L Normal 5 NA 136 LAB L501.5600 3.5-5. mmol/L Low 1 K 3.4 LAB L501.5900 98-107 mmol/L Normal CL 104 LAB L501.6100 21.0-3 mmol/L Normal 2.0 CO2 23.0 LAB L501.6200 5-15 Normal GAP 9 Performed By: #### L500.2500 #### [facility] [address] [place], [address] HEMOGLOBIN A1C Collected: 06/15/2018 Status: F Source: [place]OBBY 6:35 AM [facility] REPOSITORY Order Comment: Comments: as add on test TYPE CODE TESTS RESULT OUT OF RANGE REFERENCE UNITS LAB L501.9985 4.2-6.3 % Normal HGB A1C 6.3 Performed By: #### L501.9985 #### [facility] [address] [place], [address] HISTORY AND PHYSICAL Observed: 06/14/2018 Status: F Source: [place] EXAM 5:22 PM [facility] REPOSITORY [facility] Medical Records Department [address] [place] [address] History and Physical 06/14/18 1354 MR#: [id number] Acct: [id number] Name: MARIA G DILLON Rep #: [id number] : 1945 72 From: Nicolas REEDER PCP: Laney Horvath DO Status: ADM IN Location: [facility] [place] [facility] [place] [id number] <Nicolas Rg - Last Filed: 06/14/18 13:54> Problem List (1) Sepsis Status: Acute (2) СВЕТЛАНА (acute kidney injury) Status: Acute (3) UTI (urinary tract infection) Status: Acute (4) Lymphedema Status: Chronic (5) Morbid obesity Status: Chronic History of Present Illness Date of Admission: 06/14/18 Chief Complaint: weakness The patient is a 72 year old F with a hx of morbid obesity, lymphedema for which she follows Dr. Interiano at the [facility], parkinsons, diet controlled DMt2, HTN, who presents to the ER with c/o weakness. She states her family made her come in because since saturday she has been fatigued and tired, and so weak that she cannot even stand up with the help of her lift chair. She appears to have a UTI in the ER, however she denies dysuria, urgency, fevers or chills. She is chronically incontinent of urine. She denies recent antibiotic use. She denies abdominal pain. She denies frequent UTIs. [] Past Medical History Past Medical History (Chronic Problems): Chronic Problems Delayed wound healing (Chronic) Lymphedema (Chronic) Morbid obesity (Chronic) Cellulitis of right leg (Chronic) Ulcer of left lower extremity with fat layer exposed (Chronic) Right leg pain (Chronic) Left leg pain (Chronic) Swelling of left lower extremity (Chronic) Swelling of right lower extremity (Chronic) Edema, leg (Chronic) Chronic venous insufficiency (Chronic) Dependent edema (Chronic) Venous ulcer of left leg (Chronic) Venous ulcer of right leg (Chronic) Lymphedema of left leg (Chronic) Lymphedema of right lower extremity (Chronic) Obesity (BMI 30-39.9) (Chronic) Parkinsons disease (Chronic) Immobility (Chronic) Urinary incontinence (Chronic) Cellulitis of leg, right (Chronic) Tinea unguium (Chronic) Type 2 diabetes mellitus with diabetic polyneuropathy (Chronic) Tinea unguium (Chronic) Delayed wound healing (Chronic) Tibialis posterior dysfunction (Chronic) Walking difficulty due to ankle and foot (Chronic) Pain, foot, left, chronic (Chronic) Left tibialis posterior tendonitis (Chronic) Ulcer of left lower extremity with fat layer exposed (Chronic) Left ankle pain (Chronic) Left tibialis tendonitis (Chronic) Chronic ulcer of right leg with fat layer exposed (Chronic) Lymphedema of lower extremity (Chronic) Venous insufficiency (chronic) (peripheral) (Chronic) Diabetes mellitus with polyneuropathy (Chronic) 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ulcer of right lower extremity with fat layer exposed (Chronic) Ulcer of right leg (Chronic) Malnutrition (Chronic) Edema leg (Chronic) Allergies No Known Allergies Allergy (Verified 06/14/18 11:33) Home Medications: Ambulatory Orders Medication Instructions Recorded Carbidopa/Levodopa 2 mg PO TID 04/04/16 [Carbidopa-Levodopa 25-100 Tab] Diphenoxylate/Atrop [Lomotil] 1 tablet PO BID PRN PRN 04/04/16 Surgical History: total knee arthroplasty - bilateral Psychiatric History: Anxiety ASPHALT PAVER History: No pertinent ASPHALT PAVER history Smoking Status: Never smoker Review of Systems Constitutional: Reports: Weakness, Fatigue. Denies: Chills, Fever, Weight Change HEENT: Denies: Head Aches, Sinus Congestion, Sinus Drainage Cardiovascular: Denies: Chest Pain, Palpitations Respiratory: Denies: Cough, Shortness of breath at rest, Sputum production Gastrointestinal: Denies: Abdominal Pain, Nausea, Vomiting Genitourinary: Denies: Dysuria Musculoskeletal: Denies: Joint Pain, Joint Tenderness Skin: Denies: Rash, Wounds Neurological: Denies: Numbness, Tingling, Focal weakness Psychiatric: Denies: Anxiety, Depression, Homicidal Ideations, Suicidal Ideations Hematologic/ Lymphatic: Denies: Easy Bruising, Easy Bleeding VTE Information - Inpt Only VTE Present on Admission: Yes VTE Mechan Device Prophylaxis: None VTE Pharm Prophylaxis ordered?: Yes Patient Problems: Active and Suspected Problems Sepsis (Acute) UTI (urinary tract infection) (Acute) СВЕТЛАНА (acute kidney injury) (Acute) - Physical Exam General: Alert, Oriented x3, Cooperative HEENT: Atraumatic, PERRLA, EOMI, Normocephalic Neck: Supple, No JVD, Negative Carotid Bruits Lungs: Clear to auscultation, Normal air movement Cardiovascular: Regular rate, No murmurs Abdomen: Bowel Sounds Present, Soft, Non Tender Extremities: Capillary Refill Less than 3 Seconds, - - severe lymphedema. Skin: No rashes, No breakdown Musculoskeletal: No Tenderness to Palpation of Joints or Extremities Neurological: Cranial nerves II-XII grossly intact Psych/Mental Status: Normal Affect, Appropriate, Alert and oriented to time, place, person, mood and affect Vital Signs Temp Pulse Resp BP Pulse Ox 98.0 F 92 22 H 98/59 L 99 06/14/18 11:33 06/14/18 11:33 06/14/18 11:33 06/14/18 11:33 06/14/18 11:33 Oxygen Delivery Method Room Air Weight: 240 lb 8.389 oz Body Mass Index (BMI) 47.0 Laboratory Tests Past 24 Hrs WBC 20.3 H RBC 3.70 L Hgb 9.7 L Hct 30.8 L MCV 83.2 MCH 26.2 L MCHC 31.5 L RDW 15.2 H WBC RBC Hgb Hct MCV MCH MCHC RDW RDW Differential Assessment/Plan All Active Problems Sepsis (Acute) UTI (urinary tract infection) (Acute) СВЕТЛАНА (acute kidney injury) (Acute) Debility (Acute) Walking difficulty due to ankle and foot (Acute) Physical deconditioning (Acute) Toe pain, left (Acute) Toe pain, right (Acute) 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ulcer of right lower extremity with necrosis of muscle (Acute) 1. Acute sepsis 2/2 UTI - evidenced by + UA, leukocytosis, pulse >90, negative LA. Continue rocephin. Urine culture sent. Cxr neg. 2. СВЕТАЛНА 2/2 above - IV NaCl 3. Lymphedema - c/s wound nurse. Follows Fascione. Has a planned surgery for vac placement on Saturday. 4. Parkinson with worsening of debility - continue sinemet. PTOT consults. 5. Hx DMt2 with morbid obesity - she is not on any medication fo this at this time. 6. Anx/Depression - continue home meds. DVT ppx: heparin DC planning: PTOT, may need placed. Lives alone and cannot walk This patient was seen by Nicolas Rg PA-C under the supervision of Doctor Efrain. <Rolando Zuniga F - Last Filed: 06/14/18 17:21> History of Present Illness The patient is a 72 year old F [] Past Medical History Allergies No Known Allergies Allergy (Verified 06/14/18 11:33) - Physical Exam Vital Signs Temp Pulse Resp BP Pulse Ox 99.1 F 90 16 110/56 L 98 06/14/18 14:39 06/14/18 14:39 06/14/18 14:39 06/14/18 14:39 06/14/18 14:39 Oxygen Delivery Method Room Air Weight: 200 lb Body Mass Index (BMI) 37.8 Laboratory Tests Past 24 Hrs WBC 20.3 H RBC 3.70 L Hgb 9.7 L Hct 30.8 L MCV 83.2 MCH 26.2 L MCHC 31.5 L RDW 15.2 H WBC RBC Hgb Hct MCV MCH MCHC RDW RDW Differential Code Visit Addendum: Dr. Zuniga I personally examined the patient and reviewed the chart. I agree with the above. 72-year-old female with a history of morbid obesity, lymphedema, Parkinson's, type 2 diabetes, hypertension who presented with weakness to the ER. The weakness weakness and fatigue started on Saturday and has not improved. Her family made her come in and in the ER she was found to have a UTI. In the ER she has a leukocytosis as well as tachypnea with a source therefore she is septic with a normal lactate. We will continue her on Rocephin and IV fluids. We will also consult the wound nurse since her lymphedema is chronic she has been following at the wound center with Dr. Interiano, and has a planned surgery for VAC placement on Saturday. Blood and urine cultures are pending area Inpatient E AND M: [id number] Init Hosp L3 06/14/18 1406 <Electronically signed by Nicolas REEDER> Date Nicolas REEDER 06/14/18 1722<Electronically signed by Rolando Zuniga MD> Cosigner Signature: Date (if applicable) Rolando Zuniga MD CC: VARINDER Rg; Laney Horvath DO; Rolando Zuniga MD Signed EMERGENCY DEPARTMENT Observed: 06/14/2018 Status: F Source: [place] SUMMARY 1:14 PM [facility] REPOSITORY [facility] Medical Records Department [address] [place] [address] Emergency Department Summary 06/14/18 1312 MR#: [id number] Acct: [id number] Name: MARIA G DILLON Rep #: [id number] : 1945 72 From: Quin Pelaez DO PCP: Laney Horvath DO Status: REG ER - ER Visit Summary Date of Service: 06/14/18 Chief Complaint: [Weakness] History of Present Illness: The patient is a 72 F [presents the emergency department generalized weakness for the last 4 days. Per family member patient's not been able to care for herself and is having a hard time lifting from a chair. Patient not eating or drinking. Patient complains of exertional dyspnea. She denies any chest pain. She has had no fevers. Patient has history of some chronic urinary incontinence but denies any dysuria. Patient does have a history of Parkinson's and states that she has been compliant with her medications. Patient also complains of leg edema for the last year and she is actually scheduled to have surgery next week to have wound vacs applied to her lower extremities.] Physical Examination: [HEENT-PERRLA, EOMI. Cranial nerves II through XII grossly intact. TMs clear. Mucous membranes moist. No adenopathy. Cardiovascular-regular rate and rhythm without murmur or ectopy Lungs-clear to auscultation, chest wall stable without crepitus or subcu emphysema Abdomen-normoactive bowel sounds, soft, nontender, no rebound or rigidity, no peritoneal signs. Extremities-intact 4, normal range of motion, normal pulses, atraumatic]. Patient does have weeping erythematous wounds to both lower extremities below the knee. Patient does have erythema. Test Results: [EKG obtained on arrival showed a sinus rhythm with a ventricular rate of 83 bpm with no acute I segment changes. CBC with differential obtained showed an elevated white blood cell count of 20,000, hemoglobin 9.7, hematocrit 31. Chemistries unremarkable. BUN was 48 and creatinine 1.56. LFTs unremarkable. Troponin was less than 0.015. Lactate was normal at 1.1. Chest x-ray was normal. Urinalysis obtained showed 500 leukocyte esterase, positive nitrites, 50-100 WBCs, and +3 bacteria.] Emergency Department Course and Treatment: [Patient had urine culture sent and also blood cultures. Patient was started on Rocephin 1 g IV.] Treatment Plan: [Admit] Disposition: [Admit] Impression: [Generalized weakness UTI Chronic leg wounds] This note was generated with [employer] dictation software. It may contain incorrect words, spelling, and punctuation that were not noted in review of the chart prior to signing ED Disposition - Plan for ED Patient: Chief Complaint: Weakness Referrals: Laney Horvath DO [Primary Care Provider] - What to do if you have Problems For any increased pain, shortness of breath, bleeding, nausea or vomiting, chest pain, or any unexpected problems, contact your Primary Care Provider. Call [facility] ([phone]) or report to the closest Emergency Room. Call 911 if necessary. 06/14/18 5454 <Electronically signed by Remus Ungur DO> Date Remus Ungur DO Cosigner Signature (If Indicated): Date CC: Laney Yuliet DO URINALYSIS, COMPLETE Collected: 06/14/2018 Status: F Source: [place]OB[place] 12:37 PM [facility] REPOSITORY Order Comment: Order Date: 06/14/18 How was Urine Obtained? CLEAN CATCH TYPE CODE TESTS RESULT OUT OF RANGE REFERENCE UNITS LAB L400.3000 Yellow COLOR Normal Yellow LAB L400.3050 Clear Normal CLARITY Cloudy LAB L400.3200 Normal mg/dl Normal GLUCOSE, UR Normal LAB L400.3300 Negative mg/dL Normal BILIRUBIN URINE Negative LAB L400.3400 Negative mg/dl Normal KETONE UR Negative LAB L400.3465 1.002-1.030 Normal SP.GR. DIPSTX 1.015 LAB L400.3550 5.0 - 8.0 pH UR Normal 5.0 LAB L400.3600 Negative mg/dl High PROT 30 DIPSTX LAB L400.3700 Normal mg/dl Normal UROBILI Normal LAB L400.3750 Negative High NITRITE UR Positive LAB L400.3780 Negative /ul High 50 OCCULT BLOOD-UR LAB L400.3800 Negative /ul High LEUK ESTERASE 500 LAB L400.4050 0-5 /hpf WBC Normal 50-100 SEEN LAB L400.4100 0-5 /hpf Normal RBC-UA 0-5 SEEN LAB L400.4150 5-10 /hpf SQUAM Normal EPI 0-5 SEEN LAB L400.4300 None Seen /hpf 3+ Normal BACTERIA LAB L400.4350 <or=2+ /hpf 1+ Normal MUCUS, URINE Performed By: #### L400.0001 #### [facility] [address] [place], [address] Observed: 06/14/2018 Status: F Source: BOB[place] CULTURE, URINE 12:37 PM [facility] REPOSITORY Urine Culture ORGANISM 1: Klebsiella pneumoniae sp pneum [place] Count >100,000 ORGANISM 2: Escherichia coli [place] Count 80,000-100,000 Klebsiella pneumoniae sp pneum: REACTION Amoxacillin/Clavulanic Acid $ <=2 S Ampicillin $ >=32 R Ampicillin/Sulbactam $ 8 S Cefazolin $ <=4 S Cefepime $ <=1 S Ceftriaxone $ <=1 S Ciprofloxacin $ <=0.25 S ESBL - Ertapenim $$$ <=0.5 S Gentamicin $ <=1 S Imipenem *NF <=0.25 S Levofloxacin $ <=0.12 S Nitrofurantoin $ 128 R Piperacillin/Tazobactam $$ <=4 S Tobramycin $ <=1 S Trimethoprim/Sulfametho $ <=20 S (NF) indicates non-formulary drug at [facility]. Approval by Infectious Disease Specialist required before non-formulary drugs may be ordered and/or dispensed. Escherichia coli: REACTION Amoxacillin/Clavulanic Acid $ 4 S Ampicillin $ 8 S Ampicillin/Sulbactam $ 4 S Cefazolin $ <=4 S Cefepime $ <=1 S Ceftriaxone $ <=1 S Ciprofloxacin $ <=0.25 S ESBL - Ertapenim $$$ <=0.5 S Gentamicin $ <=1 S Imipenem *NF <=0.25 S Levofloxacin $ <=0.12 S Nitrofurantoin $ <=16 S Piperacillin/Tazobactam $$ <=4 S Tobramycin $ <=1 S Trimethoprim/Sulfametho $ <=20 S (NF) indicates non-formulary drug at [facility]. Approval by Infectious Disease Specialist required before non-formulary drugs may be ordered and/or dispensed. Performed By: #### M100.0650 #### [facility] [address] [place], [place], [address] CBC W/DIFF, AUTOMATED Collected: 06/14/2018 Status: F Source: [place] 11:55 AM [facility] REPOSITORY TYPE CODE TESTS RESULT OUT OF RANGE REFERENCE UNITS LAB L100.1000 4.4-11.0 K/mm3 High WBC 20.3 LAB L100.1200 4.2-5.4 M/mm3 Low RBC 3.70 LAB L100.1300 12.0-15.0 g/dl Low HGB 9.7 LAB L100.1400 37-47 % Low HCT 30.8 LAB L100.1500 81-99 fL Normal MCV 83.2 LAB L100.1600 27.0-32.0 pg Low MCH 26.2 LAB L100.1700 32-36 g/gl Low MCHC 31.5 LAB L100.1810 11.6-14.6 % High RDW CV 15.2 LAB L100.1820 35.1-43.9 fl High RDW SD 46.7 LAB L100.1900 150-450 K/mm3 Normal PLT 342 LAB L100.2000 6.2-12.0 fl Normal MPV 8.3 LAB L100.2100 47-70 % High NEUT% 89.5 LAB L100.2200 19-41 % Low LY% 3.0 LAB L100.2300 0-10 % Normal MONO% 6.2 LAB L100.2400 0-5 % Normal EO% 0.9 LAB L100.2500 0-1 % Normal BASO% 0.1 LAB L100.2550 0.0-0.9 % Normal IM GRAN % 0.300 Result Comment: IG% - Immature Granulocytes (promyelocytes, myelocytes and metamyelocytes) > 1% indicates that a LEFT SHIFT is Present. LAB L100.2620 2.0-7.7 X10 3/uL High Absolute Neut 18.1 LAB L100.2720 0.83-4.51 X10 3/ul Low Absolute Lymph 0.61 Performed By: #### L100.0100 #### [facility] [address] [place], [address] COMPREHENSIVE METABOLIC Collected: 06/14/2018 Status: F Source: [facility] 11:55 AM [facility] REPOSITORY TYPE CODE TESTS RESULT OUT OF RANGE REFERENCE UNITS LAB L501.0100 74-106 mg/dL High GLU 135 Result Comment: Fasting Glucose result greater than or equal to 126 mg/dL suggests DIABETES MELLITUS per A.D.A. criteria. Please note revised GLUCOSE reference range effective 2017. LAB L501.1000 7-18 mg/dL High BUN 48 LAB L501.1100 0.55-1.02 mg/dL High CREAT,SERUM 1.56 Result Comment: The validity of the calculated GFR AND GFRAA in patients over 70 years has not been determined. Clinical correlation is essential. LAB L501.1110 >60 mL/min Low EST GFR 35 Result Comment: Non- GFR Calc LAB L501.1115 >60 mL/min Low EST GFR - AA 42 Result Comment: GFR Calc LAB L501.1255 ml/min Normal Estimated CRCL 23.76 LAB L501.1300 10-20 RATIO High BUN/CRE 30.8 LAB L501.1500 6.4-8. g/dL Normal 2 T PROT 8.0 LAB L501.1800 3.2-5. g/dL Low 0 ALB 2.2 LAB L501.1950 2.2-4. g/dL High 2 GLOB 5.8 LAB L501.2000 0.9-2. RATIO Low 4 A/G 0.4 LAB L501.2200 8.5-10 mg/dL Low .1 CA 8.4 LAB L501.4100 15-37 U/L Low AST 10 LAB L501.4305 45-117 U/L High ALK P 160 LAB L501.4405 13-56 U/L Low ALT 7 LAB L501.4600 0.20-1 mg/dL Normal .00 T BILI 0.40 LAB L501.5300 136-14 mmol/L Low 5 NA 132 LAB L501.5600 3.5-5. mmol/L Normal 1 K 3.6 LAB L501.5900 98-107 mmol/L Low CL 97 LAB L501.6100 21.0-3 mmol/L Normal 2.0 CO2 23.0 LAB L501.6200 5-15 Normal GAP 12 Performed By: #### L500.4050, L501.4010 #### [facility] [address] [place], [address] TROPONIN-I Collected: 06/14/2018 Status: F Source: [place] 11:55 AM [facility] REPOSITORY TYPE CODE TESTS RESULT OUT OF RANGE REFERENCE UNITS LAB L501.4010 <0.045 ng/mL Normal < 0.015 TROPONIN-I Result Comment: TROPONIN-I EXPECTED VALUES <0.045 Negative 0.045 - 0.590 Consistent with Cardiac Damage > OR = 0.600 Critical Value Not every elevated troponin is indicative of VA. These values should be used with clinical judgement in examining the patient's clinical picture for diagnosis. To establish a diagnosis of VA versus myocardial injury, there must be a demonstrated rise and/or fall in the troponin values, in addition to ischemic symptoms, EKG changes, new regional wall motion abnormality, and/or angiographical evidence. PLEASE NOTE: REFERENCE RANGES EDITED 17 Performed By: #### L500.4050, L501.4010 #### [facility] [address] [place], [address] LACTIC ACID Collected: 06/14/2018 Status: F Source: [place] 11:55 AM [facility] REPOSITORY Order Comment: Yes/No query for Sepsis Lactate Rule Y TYPE CODE TESTS RESULT OUT OF RANGE REFERENCE UNITS LAB L503.6005 0.4-2.0 mmol/L Normal LACTIC ACID 1.1 Performed By: #### L503.6005 #### [facility] [address] [place] [address]. [place], [address] Observed: 06/14/2018 Status: F Source: [place] CULTURE, BLOOD (WB) 11:55 AM [facility] REPOSITORY BC No growth in 5 days. Performed By: #### M200.1000 #### [facility] [address] [facility] [place], [address] Observed: 06/14/2018 Status: F Source: [place] CULTURE, BLOOD (WB) 11:55 AM [facility] REPOSITORY BC No growth in 5 days. Performed By: #### M200.1000 #### [facility] [address] [facility] [place], [address] CHEST 1 VIEW Observed: 06/14/2018 Status: F Source: [place] (PORTABLE) 11:47 AM [facility] REPOSITORY [facility] Imaging Services [address] [place] [address] Chest 1 View (Portable) MR#: [id number] Acct: [id number] Name: MARIA G DILLON Rep #: [id number] : 1945 F 72 From: Henry Khan DO PCP: Laney Horvath DO Status: REG ER Study: Chest 1 View (Portable) Date of Exam: 06/14/18 Exam# [id number] Ordering Dr: Quin Pelaez DO STUDY: X-RAY CHEST REASON FOR EXAM: Female, 72 years old. Weakness and lethargy TECHNIQUE: Single AP portable view of the chest. COMPARISON: 04/04/2016 FINDINGS: The lungs are clear and expanded. There is no demonstrated pleural abnormality. Normal size heart. Normal mediastinum and annalee. Normal visualized pulmonary arteries. Normal visualized aortic arch and descending thoracic aorta. Normal visualized thoracic spine. Normal visualized ribs, clavicles, and shoulders. There is no demonstrated abnormality of the visualized soft tissue structures of the upper abdomen. RAD/Chest 1 View (Portable) IMPRESSION: Normal x-ray examination of the chest. Electronically Signed: Henry Khan DO at 12:19 EDT Tel , Service support , CC: Laney Horvath DO; Quin Pelaez DO Base Brander: Signed MRSA WOUND DNA BY Collected: 04/16/2018 Status: F Source: [place] PCR 11:50 AM [facility] REPOSITORY Order Comment: Specimen Source? RIGHT LEG ULCER TYPE CODE TESTS RESULT OUT OF RANGE REFERENCE UNITS LAB L8200.1100 Negative Normal MRSA Negative RESULT LAB L8200.1150 Negative Normal SA RESULT NEGATIVE Performed By: #### L8200.1075 #### [facility] [place], [address] Observed: 04/16/2018 Status: F Source: [place] CULTURE, DEEP WOUND 11:50 AM [facility] REPOSITORY Gram Stain Gram Stain No White Blood Cells No organisms seen Wound Culture There are no CLSI standards for interpretation of this Drug/Organism combination. ORGANISM 1: Corynebacterium striatum Amount Growth 1+ Cult, Anaerobic No growth in 5 days. Performed By: #### M100.1500 #### [facility] [address] [facility] [address] [place], [place], [address] ERYTHROCYTE SED RATE Collected: 04/16/2018 Status: F Source: [place] 11:35 AM [facility] REPOSITORY TYPE CODE TESTS RESULT OUT OF RANGE REFERENCE UNITS LAB L102.0000 0-30 mm/hr High SED RATE 53 Performed By: #### L101.9900, L100.0100 #### [facility] [address] [place], [place], [address] CBC W/DIFF, AUTOMATED Collected: 04/16/2018 Status: F Source: [place] 11:35 AM [facility] REPOSITORY TYPE CODE TESTS RESULT OUT OF RANGE REFERENCE UNITS LAB L100.1000 4.4-11.0 K/mm3 Normal WBC 8.6 LAB L100.1200 4.2-5.4 M/mm3 Low RBC 3.68 LAB L100.1300 12.0-15.0 g/dl Low HGB 9.6 LAB L100.1400 37-47 % Low HCT 31.0 LAB L100.1500 81-99 fL Normal MCV 84.2 LAB L100.1600 27.0-32.0 pg Low MCH 26.1 LAB L100.1700 32-36 g/gl Low MCHC 31.0 LAB L100.1810 11.6-14.6 % High RDW CV 17.5 LAB L100.1820 35.1-43.9 fl High RDW SD 54.0 LAB L100.1900 150-450 K/mm3 Normal PLT 333 LAB L100.2000 6.2-12.0 fl Normal MPV 8.2 LAB L100.2100 47-70 % High NEUT% 71.1 LAB L100.2200 19-41 % Low LY% 9.6 LAB L100.2300 0-10 % Normal MONO% 6.0 LAB L100.2400 0-5 % High EO% 12.4 LAB L100.2500 0-1 % Normal BASO% 0.8 LAB L100.2550 0.0-0.9 % Normal IM GRAN % 0.100 Result Comment: IG% - Immature Granulocytes (promyelocytes, myelocytes and metamyelocytes) > 1% indicates that a LEFT SHIFT is Present. LAB L100.2620 2.0-7.7 X10 3/uL Normal Absolute Neut 6.1 LAB L100.2720 0.83-4.51 X10 3/ul Normal Absolute Lymph 0.83 Performed By: #### L101.9900, L100.0100 #### [facility] [address] [place], [address] COMPREHENSIVE METABOLIC Collected: 04/16/2018 Status: F [facility] REPOS[facility] TYPE CODE TESTS RESULT OUT OF RANGE REFERENCE UNITS LAB L501.0100 74-106 mg/dL Normal GLU 82 Result Comment: Please note revised GLUCOSE reference range effective 2017. LAB L501.1000 7-18 mg/dL High BUN 39 LAB L501.1100 0.55-1.02 mg/dL High CREAT,SERUM 1.48 Result Comment: The validity of the calculated GFR AND GFRAA in patients over 70 years has not been determined. Clinical correlation is essential. LAB L501.1110 >60 mL/min Low EST GFR 37 Result Comment: Non- GFR Calc LAB L501.1115 >60 mL/min Low EST GFR - AA 45 Result Comment: GFR Calc LAB L501.1300 10-20 RATIO High BUN/CRE 26.4 LAB L501.1500 6.4-8.2 g/dL T Normal PROT 7.7 LAB L501.1800 3.2-5.0 g/dL Low ALB 2.9 LAB L501.1950 2.2-4.2 g/dL High GLOB 4.8 LAB L501.2000 0.9-2.4 RATIO Low A/G 0.6 LAB L501.2200 8.5-10.1 mg/dL CA Normal 8.5 LAB L501.4100 15-37 U/L Low AST 13 LAB L501.4305 45-117 U/L Normal ALK P 100 LAB L501.4405 13-56 U/L Low ALT < 6 LAB L501.4600 0.20-1.00 mg/dL T Normal BILI 0.20 LAB L501.5300 136-145 mmol/L NA Normal 138 LAB L501.5600 3.5-5.1 mmol/L K Normal 4.6 LAB L501.5900 98-107 mmol/L CL Normal 104 LAB L501.6100 21.0-32.0 mmol/L Normal CO2 24.0 LAB L501.6200 5-15 Normal GAP 10 Performed By: #### L500.4050, L501.6710 #### [facility] [address] [place], [address] CRP Collected: 04/16/2018 Status: F Source: [place] 11:35 AM [facility] REPOSITORY TYPE CODE TESTS RESULT OUT OF RANGE REFERENCE UNITS LAB L501.6710 0.0-3.0 mg/L High 30.80 C-REACTIVE PROT Result Comment: C-Reactive Protein (CRP) provides useful information for the diagnosis, therapy and monitoring of inflammatory processes and associated diseases. For the evaluation of Relative Risk for Cardiovascular Disease, a High Sensitivity CRP (HSCRP) should be ordered. Performed By: #### L500.4050, L501.6710 #### [facility] [address] [place], [address] Observed: 03/26/2018 Status: F Source: [place] CULTURE, DEEP WOUND 1:30 PM [facility] REPOSITORY Gram Stain Gram Stain Rare White Blood Cells 4+ Gram negative rods 4+ Gram negative cocco bacillus Wound Culture #3 MRSA RESULTS CALLED TO WOUND CENTER NURSE LINE 03/30/18 0734 Jacklyn Chavis. Copy of report sent to Infection Control Printer [id number] 03/30/18 0734 WINDY. ORGANISM 1: Enterobacter cloacae complex Amount Growth 1+ ORGANISM 2: Proteus mirabilis Amount Growth 1+ ORGANISM 3: Meth. resistant Staph. aureus Amount Growth Rare ORGANISM 4: Streptococcus agalactiae (B) Amount Growth 2+ ORGANISM 5: Burkholderia cepacia Amount Growth Rare Enterobacter cloacae complex: REACTION Amoxacillin/Clavulanic Acid $ >=32 R Cefazolin $ >=64 R Cefepime $ <=1 S Ceftriaxone $ <=1 S Ciprofloxacin $ <=0.25 S Ertapenim $$$ <=0.5 S Gentamicin $ <=1 S Imipenem *NF <=0.25 S Levofloxacin $ <=0.12 S Piperacillin/Tazobactam $$ <=4 S Tobramycin $ <=1 S Trimethoprim/Sulfametho $ <=20 S (NF) indicates non-formulary drug at [facility]. Approval by Infectious Disease Specialist required before non-formulary drugs may be ordered and/or dispensed. Proteus mirabilis: REACTION Amoxacillin/Clavulanic Acid $ <=2 S Ampicillin $ <=2 S Ampicillin/Sulbactam $ <=2 S Cefazolin $ <=4 S Cefepime $ <=1 S Ceftriaxone $ <=1 S Ciprofloxacin $ >=4 R Ertapenim $$$ <=0.5 S Gentamicin $ <=1 S Levofloxacin $ 4 I Piperacillin/Tazobactam $$ <=4 S Tobramycin $ <=1 S Trimethoprim/Sulfametho $ >=320 R (NF) indicates non-formulary drug at [facility]. Approval by Infectious Disease Specialist required before non-formulary drugs may be ordered and/or dispensed. Meth. resistant Staph. aureus: REACTION Benzylpenicillin NF >=0.5 R Cefoxitin *NF + Clindamycin $$ >=8 R Inducable Clindamycin Resistan - Erythromycin $ >=8 R Gentamicin $ <=0.5 S Levofloxacin $ >=8 R Linezolid $$$$ 2 S Oxacillin NF >=4 R Tigecycline $$$$ <=0.12 S Rifampin $$ <=0.5 S Tetracycline NF <=1 S Trimethoprim/Sulfametho $ <=10 S Vancomycin $ <=0.5 S (NF) indicates non-formulary drug at [facility]. Approval by Infectious Disease Specialist required before non-formulary drugs may be ordered and/or dispensed. * CLSI guidelines does not recommend testing of cephalosporins. This interpretation is deduced from Beta-lactam/penicillin results. Streptococcus agalactiae (B): REACTION Ampicillin $ <=0.25 S Benzylpenicillin NF 0.12 S Ceftriaxone $ <=0.12 S Clindamycin $$ <=0.25 S Inducable Clindamycin Resistan - Linezolid $$$$ <=2 S Vancomycin $ 0.5 S (NF) indicates non-formulary drug at [facility]. Approval by Infectious Disease Specialist required before non-formulary drugs may be ordered and/or dispensed. * CLSI guidelines does not recommend testing of cephalosporins. This interpretation is deduced from Beta-lactam/penicillin results. Burkholderia cepacia: REACTION Ceftazidime *NF 4 S Ceftriaxone $ >=64 R Ciprofloxacin $ <=0.25 S Gentamicin $ <=1 S Imipenem *NF <=0.25 S Levofloxacin $ 0.5 S Piperacillin/Tazobactam $$ <=4 S Tobramycin $ <=1 S Trimethoprim/Sulfametho $ 80 R (NF) indicates non-formulary drug at [facility]. Approval by Infectious Disease Specialist required before non-formulary drugs may be ordered and/or dispensed. Cult, Anaerobic Studies Have Confirmed That B. Fragilis Group are Routinely Susceptible to: Metronidazole, Piperacillin/Tazobactam, Tigecycline, Ertapenem, Imipenem, Meropenem and variable in resistance to: Clindamycin, Moxifloxacin, Cefoxitin and Ampicillin/Sulbactam. Copy of report sent to Infection Control Printer [id number] 04/01/18 0845 PATIJIMARLEY. RESULTS FAXED TO 04/01/18 9880 Ariana Olivier. ORGANISM 1: Bacteroides fragilis Beta Lactamase Negative Performed By: #### M100.1500 #### [facility] [address] [facility] [place], [address] LOWER EXT ARTERIAL Observed: 02/22/2018 Status: F Source: [facility] 7:29 PM [facility] REPOSITORY [facility] Cardiovascular Services [address] [place] [address] 02/22/18 1918 MR#: [id number] Acct: [id number] Name: MARIA G DILLON Rep #: [id number] : 1945 72 From: Riki Wiggins MD Attending Dr: Arpita Interiano DPM Status: REG RCR Ordering Dr: Date: 02/22/18 Location: Sex: F C Admitted: Arterial Study - Arterial Study Arterial Study: This is a 72-year-old female with Parkinson's disease. She presents with bilateral lower extremity chronic wounds. Suspecting the presence of atherosclerotic peripheral arterial occlusive disease, the patient was brought to the noninvasive vascular laboratory at this time for the purpose of bilateral noninvasive lower extremity arterial assessment. Doppler signal assessment was used to evaluate the pulses at ankle level bilaterally. The posterior tibial and dorsalis pedis pulses were triphasic bilaterally. Segmental limb pressures were obtained bilaterally. The right calf pressure could not be obtained due to the noncompressibility of the vasculature. The right ankle pressure, as determined by posterior tibial and dorsalis pedis pulses, could not be determined due to the noncompressibility of the vasculature. The right digital pressure was measured at 97 mmHg. The left calf pressure was measured at 149 mmHg. The left ankle pressure, as determined by posterior tibial and dorsalis pedis pulses, could not be determined due to the noncompressibility of the vasculature. The left digital pressure was measured at 96 mmHg. Pulse-volume recordings were obtained at calf and digital levels bilaterally. Waveform amplitudes appeared to be satisfactory bilaterally. Resting ankle-brachial indices could not be calculated on either side due to the noncompressibility of the vasculature. Digital-brachial indices were calculated bilaterally. The right digital-brachial index was calculated to be 0.82. The left digital-brachial index was calculated to be 0.81. Impression: Based upon the findings of this resting noninvasive lower extremity arterial study, there is no evidence of significant arterial occlusive disease in the lower extremities bilaterally. Triphasic waveforms were noted at ankle level bilaterally. Resting ankle-brachial indices could not be calculated on either side due to the noncompressibility of the vasculature, likely due to arterial calcification rendering the arterial tree noncompressible. Digital-brachial indices are bilaterally normal, suggesting relatively normal arterial perfusion at digital level bilaterally. Clinical correlation is advised. 02/22/181928 <Electronically signed by Riki Wiggins MD> Date Riki Wiggins MD CC: Arpita Interiano DPM; Laney Horvath DO Date Dictated: 02/22/181917 Date Transcribed: 02/22/181917 Base Brander: WENDI Gallo CONSULTATION Observed: 02/19/2018 Status: F Source: [place] 12:45 PM [facility] REPOSITORY [facility] Medical Records Department [address] [place] [address] Consultation 02/19/18 1240 MR#: [id number] Acct: [id number] Name: MARIA G DILLON Rep #: [id number] : 1945 72 From: Oscar Rodrigez MD PCP: Laney Horvath DO Status: REG RCR Y Location: Problem List (1) Chronic venous insufficiency Status: Chronic Reason for Consult: leg infection Consulted by: Dr. Wiggins History of Present Illness: The patient is a 72 year old F with chronic lymphedema and bilateral leg ulceration for about the past year who follows at wound clinic. Seen about 2 weeks ago with significant pain, redness, swelling, and foul odor/drainage from RLE ulcer. No fever or chills with this. Cx with pseudomonas, proteus, and anaerobes. Given rx for cipro and augmentin for 10 day course. Now leg is much better with minimal pain. Additional history obtained from her daughter. Full ROS performed and neg except as noted above - Medical History Past Medical History (Chronic Problems): Chronic Problems Ulcer of left lower extremity with fat layer exposed (Chronic) Right leg pain (Chronic) Left leg pain (Chronic) Swelling of left lower extremity (Chronic) Swelling of right lower extremity (Chronic) Edema, leg (Chronic) Chronic venous insufficiency (Chronic) Dependent edema (Chronic) Venous ulcer of left leg (Chronic) Venous ulcer of right leg (Chronic) Lymphedema of left leg (Chronic) Lymphedema of right lower extremity (Chronic) Obesity (BMI 30-39.9) (Chronic) Parkinsons disease (Chronic) Immobility (Chronic) Urinary incontinence (Chronic) Cellulitis of leg, right (Chronic) Tinea unguium (Chronic) Delayed wound healing (Chronic) Tibialis posterior dysfunction (Chronic) Walking difficulty due to ankle and foot (Chronic) Pain, foot, left, chronic (Chronic) Left tibialis posterior tendonitis (Chronic) Ulcer of left lower extremity with fat layer exposed (Chronic) Left ankle pain (Chronic) Left tibialis tendonitis (Chronic) Chronic ulcer of right leg with fat layer exposed (Chronic) Lymphedema of lower extremity (Chronic) Venous insufficiency (chronic) (peripheral) (Chronic) Diabetes mellitus with polyneuropathy (Chronic) 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ulcer of right lower extremity with fat layer exposed (Chronic) Ulcer of right leg (Chronic) Malnutrition (Chronic) Edema leg (Chronic) Allergies/Adverse Reactions: Allergies No Known Allergies Allergy (Verified 03/11/14 15:07) Home Medications: Ambulatory Orders Medication Instructions Recorded - Social History Tobacco Use: non-smoker Vital Signs Temp Pulse Resp BP 98.7 F 66 16 134/80 H 02/19/18 09:31 02/10/18 15:35 02/19/18 09:31 02/10/18 15:35 Oxygen Delivery Method Room Air - Other Studies Radiology: [] reviewed Other Studies: [] Route of nutrition/ use of supplements: [] Nutritional Intake: [] IV Site: [] Grande Catheter: [] - Physical Exam General: Alert, Cooperative, No apparent distress HEENT: Atraumatic, PERRLA, EOMI Neck: Supple, No Nodes Lungs: Clear to auscultation, Normal air movement Cardiovascular: Regular rate, Regular Rhythm, Murmur Abdomen: Soft, Non Tender, Non-Distended, Obese Extremities: Edema Skin: Ulcer/ Wound - Bilat williamson ulcers Musculoskeletal: No Tenderness to Palpation of Joints or Extremities Neurological: Cranial nerves II-XII grossly intact - Assessment/Plan Antibiotics: [] Assessment/Plan: [] RLE infected ulcer with chronic lymphedema - much improved after course of augmentin and cipro. Ok to monitor at this point off of abx. Thank you, will follow as needed, d/w Dr. Interiano. 02/19/18 1245 <Electronically signed by Oscar Rodrigez MD> Date Oscar Rodrigez MD Cosigner Signature (if applicable): Date CC: Laney Horvath DO Signed WOUND CTR HISTORY Observed: 02/10/2018 Status: F Source: [facility] AND PHYSICAL 5:41 PM [facility] REPOSITORY [facility] [address] [place] [address] Wound Ctr History AND Physical 02/10/18 1006 MR#: [id number] Acct: [id number] Name: MARIA G DILLON Rep #: [id number] : 1945 72 From: Riki Wiggins MD PCP: Laney Horvath DO Status: REG RCR Y Location: (1) Swelling of left lower extremity Status: Chronic Current Visit: Yes Code(s): M79.89 - Other specified soft tissue disorders (2) Swelling of right lower extremity Status: Chronic Current Visit: Yes Code(s): M79.89 - Other specified soft tissue disorders (3) Edema, leg Status: Chronic Current Visit: Yes Code(s): R60.0 - Localized edema (4) Chronic venous insufficiency Status: Chronic Current Visit: Yes Code(s): I87.2 - Venous insufficiency (chronic) (peripheral) (5) Dependent edema Status: Chronic Current Visit: Yes Code(s): R60.9 - Edema, unspecified (6) Venous ulcer of left leg Status: Chronic Current Visit: Yes Code(s): I83.029 - Varicose veins of left lower extremity with ulcer of unspecified site; L97.929 - 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chronic ulcer of unspecified part of left lower leg with unspecified severity (7) Venous ulcer of right leg Status: Chronic Current Visit: Yes Code(s): I83.019 - Varicose veins of right lower extremity with ulcer of unspecified site; L97.919 - 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chronic ulcer of unspecified part of right lower leg with unspecified severity (8) Lymphedema of left leg Status: Chronic Current Visit: Yes Code(s): I89.0 - Lymphedema, not elsewhere classified (9) Lymphedema of right lower extremity Status: Chronic Current Visit: Yes Code(s): I89.0 - Lymphedema, not elsewhere classified (10) Obesity (BMI 30-39.9) Status: Chronic Current Visit: Yes Code(s): E66.9 - Obesity, unspecified (11) Parkinsons disease Status: Chronic Current Visit: Yes Code(s): G20 - Parkinson's disease (12) Immobility Status: Chronic Current Visit: Yes Code(s): Z74.09 - Other reduced mobility (13) Urinary incontinence Status: Chronic Current Visit: No Code(s): R32 - Unspecified urinary incontinence History of Present Illness Date of Service: 02/10/18 Chief Complaint: Bilateral lower extremity swelling, edema, and lymphedema; chronic venous insufficiency; bilateral calf ulcerations. History of Wound: This is a 72-year-old female with a long- standing history of chronic swelling, edema, and lymphedema in her lower extremities. She has had ulcerations in her lower extremities bilaterally for more than 1 year. She sleeps in a recliner, with her legs in a dependent position. She has been doing this for approximately 6 months. She suffers from Parkinson's disease, and has difficulties maneuvering herself into and out of a regular bed. She is not very active, and spends long hours each day in an idle sitting position. As result of her inactivity, she is not recruiting the calf and foot muscle pumps to aid venous return. Her last lower extremity arterial study was approximately 2 years ago, though was relatively normal. She has been under the care of Dr. Kolby Kunz, vascular surgeon, and has undergone staged, bilateral lower extremity venous ablation procedures. The specific nature of the procedures, and the success of the procedures, is not known. Despite these procedures, the patient has demonstrated no significant improvement. She continues to have massive swelling, edema, and lymphedema, and chronic, nonhealing ulcerations in the calves bilaterally. She denies a history of thrombophlebitis in the past. Recent cultures of her lower extremity ulcers were positive for Proteus mirabilis and Pseudomonas species. The patient was placed on Cipro and Augmentin orally, which she continues to take at this time. She has an appointment with Dr. Rodrigez next week, infectious disease specialist. She is currently using Dry Max and Jimy wraps to her lower extremities. She owns CircAid Velcro compression garments, but is not using. She also has rheumatic mechanical compression pumps, which she claims to be using once daily, though her compliance is in question. The ulcerations on her lower extremities are said to be highly exudative. She is not able to take Lasix as recommended due to urination frequency urinary incontinence. She is with her daughter today. Past Medical History Past Medical History: Chronic Problems Ulcer of left lower extremity with fat layer exposed (Chronic) Right leg pain (Chronic) Left leg pain (Chronic) Swelling of left lower extremity (Chronic) Swelling of right lower extremity (Chronic) Edema, leg (Chronic) Chronic venous insufficiency (Chronic) Dependent edema (Chronic) Venous ulcer of left leg (Chronic) Venous ulcer of right leg (Chronic) Lymphedema of left leg (Chronic) Lymphedema of right lower extremity (Chronic) Obesity (BMI 30-39.9) (Chronic) Parkinsons disease (Chronic) Immobility (Chronic) Urinary incontinence (Chronic) Tinea unguium (Chronic) Delayed wound healing (Chronic) Tibialis posterior dysfunction (Chronic) Walking difficulty due to ankle and foot (Chronic) Pain, foot, left, chronic (Chronic) Left tibialis posterior tendonitis (Chronic) Ulcer of left lower extremity with fat layer exposed (Chronic) Left ankle pain (Chronic) Left tibialis tendonitis (Chronic) Chronic ulcer of right leg with fat layer exposed (Chronic) Lymphedema of lower extremity (Chronic) Venous insufficiency (chronic) (peripheral) (Chronic) Diabetes mellitus with polyneuropathy (Chronic) 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ulcer of right lower extremity with fat layer exposed (Chronic) Ulcer of right leg (Chronic) Malnutrition (Chronic) Edema leg (Chronic) Surgical History: total knee arthroplasty - bilateral Allergies/Adverse Reactions: Allergies No Known Allergies Allergy (Verified 03/11/14 15:07) Home Medications: Ambulatory Orders Medication Instructions Recorded Lives: Alone Smoking Status: Former smoker - quit 45 yrs ago Tobacco Use: Non-smoker Alcohol: Occasional Drugs: None Review of Systems Constitutional: Denies: Chills, Fever, Weight Change Eyes: Denies: Pain, Vision Change HEENT: Denies: Difficulty Hearing, Difficulty Swallowing, Sinus Congestion Cardiovascular: Denies: Chest Pain, Palpitations Respiratory: Denies: Cough, Shortness of Breath Gastrointestinal: Denies: Diarrhea, Nausea, Vomiting Genitourinary: Denies: Dysuria, Hematuria Endocrine: Denies: Heat/ Cold Intolerance, Polydipsia, Polyuria Hematologic/ Lymphatic: Denies: Easy Bruising, Easy Bleeding - Physical Exam Vital Signs Temp Pulse Resp BP 96.8 F L 66 16 134/80 H 02/10/18 15:35 02/10/18 15:35 02/10/18 15:35 02/10/18 15:35 General: Alert, Oriented x3, Cooperative, No apparent distress, Well developed, Well nourished, - - The patient is obese. HEENT: Atraumatic, PERRLA, EOMI, Normocephalic Oral: Moist Mucosa Neck: No JVD Lungs: Normal air movement Abdomen: Non-Distended, Obese Extremities: No clubbing, No cyanosis, No Calf Tenderness, - - Severe swelling, edema, and lymphedema is noted in the lower extremities bilaterally. Large ulcerations are noted on each calf, highly irregular in shape. Dimensions are documented elsewhere. There is a large amount of bioburden and nonviable tissue present. Circumference measurements are documented elsewhere. Wound Measurements and Assessment WC - Nurse 1 - General Ulcer Measurement Start: 02/10/18 15:28 Freq: Status: Active Protocol: Activity Type Activity Date Activity User E-Sign Co-Sign Detail Recorded Client Recorded Date Recorded By Document 02/10/18 15:35 CS [id number] 02/10/18 15:47 CS WC - Nurse 2 - General Ulcer CM Notes Start: 02/10/18 15:28 Freq: Status: Active Protocol: Activity Type Activity Date Activity User E-Sign Co-Sign Detail Recorded Client Recorded Date Recorded By Document 02/10/18 16:57 [id number] 02/10/18 17:04 [id number] Nurse 2 [Procedure/Treatment] Neurological: Cranial nerves II-XII grossly intact, Neuro grossly intact Psych/Mental Status: Normal Affect, Appropriate, Alert and oriented to time, place, person, mood and affect Debridement Note Post-Debridement Measurements/Treatment WC - Nurse 2 - General Ulcer CM Notes Start: 02/10/18 15:28 Freq: Status: Active Protocol: Activity Type Activity Date Activity User E-Sign Co-Sign Detail Recorded Client Recorded Date Recorded By Document 02/10/18 16:57 [id number] 02/10/18 17:04 Wound Center Nurse 2 #8 [id number] CALF cluster -Time 16:57 -Correct Patient Yes -Correct Side, Site, Position Yes Laterality: Right - Calf Type of Debridement: Excisional debridement Anesthesia Used: 4% Lidocaine Solution Depth: Down to and including healthy tissue, in the subcutaneous layer Percentage of wound debrided: 100 Instrument Used: 5mm curette Severity: Fat Layer Exposed Amount of bleeding with debridement: Mild Bleeding Controlled with: Compression and gauze Patient tolerated procedure well - Additional Wound Laterality: Left - Calf Type of Debridement: Excisional debridement Anesthesia Used: 4% Lidocaine Solution Depth: Down to and including healthy tissue, in the subcutaneous layer Percentage of wound debrided: 100 Instrument Used: 5mm curette Severity: Fat Layer Exposed Amount of bleeding with debridement: Mild Bleeding Controlled with: Compression and gauze Patient tolerated procedure: Patient tolerated procedure well Assessment/Plan Active Problems Swelling of left lower extremity (Chronic) Swelling of right lower extremity (Chronic) Edema, leg (Chronic) Chronic venous insufficiency (Chronic) Dependent edema (Chronic) Venous ulcer of left leg (Chronic) Venous ulcer of right leg (Chronic) Lymphedema of left leg (Chronic) Lymphedema of right lower extremity (Chronic) Obesity (BMI 30-39.9) (Chronic) Parkinsons disease (Chronic) Immobility (Chronic) Assessment: This is a 72-year-old female with Parkinson's disease. She suffers from severe swelling, edema, and lymphedema in her lower extremities, associated with ulcerations bilaterally. The patient is relatively immobile. She sleeps in a recliner, with her legs in a dependent position. She sits idlely for long periods each day. Recent cultures have been positive for Proteus and Pseudomonas, the patient is now on oral Cipro and Augmentin. The patient has been using Dry Max and Jimy wraps to her lower extremities. She has previously undergone bilateral venous ablation procedures, though the nature of the procedures and their success is unknown. It is felt that the patient would benefit from lifestyle modification. Enhanced efforts at elevation of the patient's lower extremities is recommended. The patient has been advised to sleep with her legs level with her heart, if not higher. Leg elevation has been recommended even during daytime hours. She has been advised to refrain from prolonged idle sitting. Activity has been encouraged, the patient is somewhat limited due to her Parkinson's disease. It is likely that the patient would benefit from enhanced compression to the lower extremities. A noninvasive lower extremity arterial study will be obtained to assess the patient's arterial status, which will determine whether enhanced degrees of compression can be implemented. The patient has been advised to implement the use of her pneumatic compression pumps at least 2 or 3 times daily. She has been advised to continue her current antibiotic regimen. Optimization of the patient's nutrition has been recommended as well. The patient will return in 1 week to resume care by Dr. Interiano. The patient is not a smoker. Influenza vaccine was not administered today. The patient weighs 200 pounds. She stands 5 feet 1 inch tall. Her BMI is 37.8, placing her in a class II weight category. Weight loss has been recommended, and collaboration with her primary care physician has been advised. Plan: It is felt that the patient would benefit from lifestyle modification. Enhanced efforts at elevation of the patient's lower extremities is recommended. The patient has been advised to sleep with her legs level with her heart, if not higher. Leg elevation has been recommended even during daytime hours. She has been advised to refrain from prolonged idle sitting. Activity has been encouraged, the patient is somewhat limited due to her Parkinson's disease. It is likely that the patient would benefit from enhanced compression to the lower extremities. A noninvasive lower extremity arterial study will be obtained to assess the patient's arterial status, which will determine whether enhanced degrees of compression can be implemented. The patient has been advised to implement the use of her pneumatic compression pumps at least 2 or 3 times daily. She has been advised to continue her current antibiotic regimen. Optimization of the patient's nutrition has been recommended as well. The patient will return in 1 week to resume care by Dr. Interiano. The patient is not a smoker. Influenza vaccine was not administered today. The patient weighs 200 pounds. She stands 5 feet 1 inch tall. Her BMI is 37.8, placing her in a class II weight category. Weight loss has been recommended, and collaboration with her primary care physician has been advised. 02/10/18 7121 <Electronically signed by Riki Wiggins MD> Date Riki Wiggins MD CC: Signed CBC W/DIFF, AUTOMATED Collected: 02/05/2018 Status: F Source: [place] 2:30 PM [facility] REPOSITORY TYPE CODE TESTS RESULT OUT OF RANGE REFERENCE UNITS LAB L100.1000 4.4-11.0 K/mm3 High WBC 11.1 LAB L100.1200 4.2-5.4 M/mm3 Low RBC 4.19 LAB L100.1300 12.0-15.0 g/dl Low HGB 10.6 LAB L100.1400 37-47 % Low HCT 34.6 LAB L100.1500 81-99 fL Normal MCV 82.6 LAB L100.1600 27.0-32.0 pg Low MCH 25.3 LAB L100.1700 32-36 g/gl Low MCHC 30.6 LAB L100.1810 11.6-14.6 % High RDW CV 16.0 LAB L100.1820 35.1-43.9 fl High RDW SD 48.8 LAB L100.1900 150-450 K/mm3 Normal PLT 431 LAB L100.2000 6.2-12.0 fl Normal MPV 8.2 LAB L100.2100 47-70 % High NEUT% 79.9 LAB L100.2200 19-41 % Low LY% 8.2 LAB L100.2300 0-10 % Normal MONO% 7.1 LAB L100.2400 0-5 % Normal EO% 4.3 LAB L100.2500 0-1 % Normal BASO% 0.3 LAB L100.2550 0.0-0.9 % Normal IM GRAN % 0.200 Result Comment: IG% - Immature Granulocytes (promyelocytes, myelocytes and metamyelocytes) > 1% indicates that a LEFT SHIFT is Present. LAB L100.2620 2.0-7.7 X10 3/uL High Absolute Neut 8.9 LAB L100.2720 0.83-4.51 X10 3/ul Normal Absolute Lymph 0.91 Performed By: #### L100.0100, L101.9900 #### [facility] [address], [place], [id number] ERYTHROCYTE SED RATE Collected: 02/05/2018 Status: F Source: [place] 2:30 PM [facility] REPOSITORY TYPE CODE TESTS RESULT OUT OF RANGE REFERENCE UNITS LAB L102.0000 0-30 mm/hr High SED RATE 75 Performed By: #### L100.0100, L101.9900 #### [facility] [address], [place], [id number] COMPREHENSIVE METABOLIC Collected: 02/05/2018 Status: F Source: [facility] 2:30 PM [facility] REPOSITORY TYPE CODE TESTS RESULT OUT OF RANGE REFERENCE UNITS LAB L501.0100 74-106 mg/dL Normal GLU 82 Result Comment: Please note revised GLUCOSE reference range effective 2017. LAB L501.1000 7-18 mg/dL High BUN 38 LAB L501.1100 0.55-1.02 mg/dL Normal CREAT,SERUM 0.80 Result Comment: The validity of the calculated GFR AND GFRAA in patients over 70 years has not been determined. Clinical correlation is essential. LAB L501.1110 >60 mL/min Normal EST GFR 75 Result Comment: Non- GFR Calc LAB L501.1115 >60 mL/min Normal EST GFR - AA 91 Result Comment: GFR Calc LAB L501.1300 10-20 RATIO High BUN/CRE 47.3 LAB L501.1500 6.4-8.2 g/dL T Normal PROT 8.1 LAB L501.1800 3.2-5.0 g/dL Low ALB 2.6 LAB L501.1950 2.2-4.2 g/dL High GLOB 5.5 LAB L501.2000 0.9-2.4 RATIO Low A/G 0.5 LAB L501.2200 8.5-10.1 mg/dL CA Normal 8.7 LAB L501.4100 15-37 U/L Normal AST 22 LAB L501.4305 45-117 U/L Normal ALK P 101 LAB L501.4405 13-56 U/L Low ALT 8 LAB L501.4600 0.20-1.00 mg/dL T Normal BILI 0.30 LAB L501.5300 136-145 mmol/L NA Normal 137 LAB L501.5600 3.5-5.1 mmol/L K Normal 4.5 LAB L501.5900 98-107 mmol/L CL Normal 102 LAB L501.6100 21.0-32.0 mmol/L Normal CO2 29.0 LAB L501.6200 5-15 Normal GAP 6 Performed By: #### L500.4050, L501.6710 #### [facility] [address] [place], [address] CRP Collected: 02/05/2018 Status: F Source: [place] 2:30 PM [facility] REPOSITORY TYPE CODE TESTS RESULT OUT OF RANGE REFERENCE UNITS LAB L501.6710 0.0-3.0 mg/L High 112.00 C-REACTIVE PROT Result Comment: C-Reactive Protein (CRP) provides useful information for the diagnosis, therapy and monitoring of inflammatory processes and associated diseases. For the evaluation of Relative Risk for Cardiovascular Disease, a High Sensitivity CRP (HSCRP) should be ordered. Performed By: #### L500.4050, L501.6710 #### [facility] [address] [place], [address] HEMOGLOBIN A1C Collected: 02/05/2018 Status: F Source: [place] 2:30 PM [facility] REPOSITORY TYPE CODE TESTS RESULT OUT OF RANGE REFERENCE UNITS LAB L501.9985 4.2-6.3 % High HGB A1C 6.8 Performed By: #### L501.9985 #### [facility] [address] [place], [address] Observed: 02/05/2018 Status: F Source: [place] CULTURE, DEEP WOUND 2:00 PM [facility] REPOSITORY Comments: RIGHT LEG ULCER. Gram Stain Gram Stain 2+ Gram positive cocci 1+ Gram negative rods Rare Epithelial cells Wound Culture ORGANISM 1: Proteus mirabilis Amount Growth 1+ ORGANISM 2: Pseudomonas spp Proteus mirabilis: REACTION Amoxacillin/Clavulanic Acid $ <=2 S Ampicillin $ <=2 S Ampicillin/Sulbactam $ <=2 S Cefazolin $ <=4 S Cefepime $ <=1 S Ceftriaxone $ <=1 S Ciprofloxacin $ >=4 R Ertapenim $$$ <=0.5 S Gentamicin $ <=1 S Levofloxacin $ 4 I Piperacillin/Tazobactam $$ <=4 S Tobramycin $ <=1 S Trimethoprim/Sulfametho $ >=320 R (NF) indicates non-formulary drug at [facility]. Approval by Infectious Disease Specialist required before non-formulary drugs may be ordered and/or dispensed. Pseudomonas spp: REACTION Ceftazidime *NF 4 S Ciprofloxacin $ <=0.25 S Gentamicin $ <=1 S Imipenem *NF 1 S Levofloxacin $ 0.25 S Piperacillin/Tazobactam $$ 8 S Tobramycin $ <=1 S (NF) indicates non-formulary drug at [facility]. Approval by Infectious Disease Specialist required before non-formulary drugs may be ordered and/or dispensed. Cult, Anaerobic #1 Studies have confirmed that Anaerobic Gram Positive Cocci are routinely susceptible to: Penicillin/Ampicillin, Ampicillin/Sulbactam, Piperacillin/Tazobactam, Cefoxatin, Ertapenem, Imipenem, Meropenem and Metronidazole and vary in resistance to: Clindamycin and Moxifloxacin. #2 Studies Have Confirmed That B. Fragilis Group are Routinely Susceptible to: Metronidazole, Piperacillin/Tazobactam, Tigecycline, Ertapenem, Imipenem, Meropenem and variable in resistance to: Clindamycin, Moxifloxacin, Cefoxitin and Ampicillin/Sulbactam. #4 Studies have confirmed that Prevotella, Porphyromonas and Bacteroides species other than B. fragilis group are routinely susceptible to: Ampicillin/Sulbactam, Piperacillin/Tazobactam, Cefoxitin, Tigecycline, Ertapenem, Imipenem, Meropenem and Metronidazole and variable in resistance to: Penicillin/Ampicillin, Clindamycin and Moxifloxacin. ORGANISM 1: Anaerobic cocci ORGANISM 2: Bacteroides fragilis Beta Lactamase Positive ORGANISM 3: Campylobacter ureolyticus ORGANISM 4: Prevotella disiens Performed By: #### M100.1500 #### [facility] [address] [place] [address] [place], [address] ALLERGIES ALLERGIES DATE TYPE / CODE NAME / CODE REACTION SEVERITY SOURCE 06/14/2018 Drug No Known Unknown [facility] Allergy/4160 Allergies/F00 Hospital 87022(SNOMED 0574493(RXNOR Repository CT) M) ENCOUNTERS ENCOUNTERS ADMIT/DISCHARGE ACCOUNT ADMITTING ENCOUNTER LOCATION SOURCE NUMBER CLASS 07/23/2018 [id number] Ambulatory [place] 9 [facility] ing: Repository 07/12/2018 [id number] Ambulatory Bobby [place] 1 [facility] ing:OLS.AVED Repository 07/10/2018 [id number] Ambulatory [place] 4 [facility] ing:OLS.AVED Repository 07/09/2018 [id number] Ambulatory [place] Bobby 3 [facility] ing:OLS.AVED Repository 07/08/2018/ [id number] Ambulatory Bobby [place] 8 3 [facility] ing:SDCRoom: Repository AC17 06/24/2018 [id number] Ambulatory [place] 6 [facility] ing:OLS.AVED Repository 06/14/2018/ [id number] Maris, Inpatient Bobby Bobby 8 0 Rolando F [facility] ing:YS4Yuie: Repository LW352Cpl: 1 06/14/2018 [id number] Kot[place]arm[place], Ambulatory BMSBuilding:B Bobby 0 Rolando F [facility] Repository 06/14/2018 [id number] Maris, Ambulatory BMSBuilding:B Bobby 6 Rolando F [facility] Repository 06/14/2018 [id number] Maris, Ambulatory BMSBuilding:B [place] 0 Rolando F [facility] Repository 06/14/2018 [id number] Maris, Ambulatory BMSBuilding:B [place] 7 Rolando F [facility] Repository 06/14/2018/ [id number] Ambulatory BMSBuilding:B [place] 8 3 MS.[facility] Repository 06/11/2018/ [id number] Ambulatory [place] Bobby 8 0 [facility] ing: Repository 05/07/2018/ [id number] Ambulatory [place] 8 0 [facility] Hospital ing: Repository 04/15/2018 [id number] Ambulatory Bobby [place] 5 [facility] ing:LAB.FE Repository E 04/09/2018/ [id number] Ambulatory [place] Bobby 8 2 [facility] Hospital ing: Repository 03/05/2018/ [id number] Ambulatory Bobby [place] 8 5 [facility] ing: Repository 02/05/2018/ [id number] Ambulatory [place] 8 8 [facility] ing: Repository 01/08/2018/ [id number] Ambulatory [place] Bobby 8 4 [facility] ing: Repository 12/04/2017/ [id number] Ambulatory Bobby [place] 8 6 [facility] ing: Repository 11/06/2017/ [id number] Ambulatory Bobby [place] 8 3 [facility] ing: Repository 10/09/2017/ [id number] Ambulatory [place] Bobby 8 7 [facility] ing: Repository 09/11/2017/ [id number] Ambulatory [place] 8 0 [facility] ing: Repository 08/07/2017/ [id number] Ambulatory [place] Bobby 7 9 [facility] ing: Repository PAYERS PAYERS ENCOUNTER GUARANTOR PAYER SUBSCRIBER SOURCE 07/23/2018 MARIA G Jarquin Primary MARIA G Jarquin [place] [id number] [place] Insurance:MEDICARE BAKERDOB: [facility], PART A [place] [id number] [address]Awe: Number: Repository [id number] () Date:2011-11-11 07/23/2018 Secondary MARIA G Jarquin [place] [facility] BAKERDOB: [facility] Number: [id number] Hospital [id number] Repository Date:5437-30-[address], [place] [address]GV: 07/23/2018 Tertiary NOT GIVENUNK Bobby Insurance:SELF PAY [facility] Number: Effective Repository Date:2018-06-12 07/12/2018 MARIA G Jarquin Primary NOT GIVENUNK [place] [id number] [place] Insurance:SELF PAY [facility] [address]Ady: Number: Effective Repository Date:2018-07-12 (HP) 07/10/2018 MARIA G Jarquin Primary NOT GIVENUNK [place] [id number] [place] Insurance:SELF PAY [facility] 796[address]Lcx: Number: Effective Repository Date:2018-07-10 () 07/09/2018 MARIA G Jarquin Primary NOT GIVENUNK [place] [id number] [place] Insurance:SELF PAY [facility] 89060Zvb: Number: Effective Repository Date:2018-07-09 (HP) 07/08/2018 MARIA G Jarquin Primary MARIA G Jarquin [place] [id number] [place] Insurance:MEDICARE [facility] [id number] [address]Ods: Number: Repository [id number] (HP) Date:2018-05-27 07/08/2018 Secondary MARIA G Britton [place] Insurance:AARPPolicy BAKERDOB: Community Number: [id number] Hospital [id number] Repository Date:1805-23-03QD [facility] [address], [place] [address]CF: 07/08/2018 Tertiary NOT GIVENUNK [place] Insurance:SELF PAY [facility] Number: Effective Repository Date:2018-05-27 06/24/2018 MARIA G Jarquin Primary NOT GIVENUNK [place] [id number] [place] Insurance:SELF PAY [facility] [address]Ykj: Number: Effective Repository Date:2018-06-24 (HP) 06/14/2018 MARIA G Jarquin Primary MARIA G Jarquin [place] [id number] [place] Insurance:MEDICARE BAKERDOB: [facility], PART A [facility] [id number] Regional Medical Center [address]Vpc: Number: Repository [id number] () Date:2018-06-14 06/14/2018 Secondary MARIA G Jarquin [place] Insurance:AARPPolicy BAKERDOB: Community Number: [id number] Hospital [id number] Repository Date:4839-94-96HC [facility] [address], [place] [address]PM: 06/14/2018 Tertiary NOT GIVENUNK [place] Insurance:SELF PAY [facility] Number: Effective Repository Date:2018-06-14 06/14/2018 MARIA G Jarquin Primary MARIA G Jarquin [place] [id number] [place] Insurance:MEDICARE BAKERDOB: [facility], PART A [facility] [id number] Regional Medical Center [address]Pmr: Number: Repository [id number] () Date:2018-06-14 06/14/2018 Secondary MARIA G Britton [place] Insurance:AARPPolicy BAKERDOB: Community Number: [id number] Hospital [id number] Repository Date:6467-91-03[address], [place] [address]TS: 06/14/2018 Tertiary NOT GIVENUNK [place] Insurance:SELF PAY [facility] Number: Effective Repository Date:2018-06-14 06/14/2018 MARIA G K Primary MARIA G Britton [place] [id number] [place] Insurance:MEDICARE BAKERDOB: [facility], PART A [facility] [id number] Regional Medical Center [address]Wym: Number: Repository [id number] () Date:2018-06-14 06/14/2018 Secondary MARIA G K [place] Insurance:AARPPolicy BAKERDOB: Community Number: [id number] Hospital [id number] Repository Date:0569-03-11[address], [place] [address]YF: 06/14/2018 Tertiary NOT GIVENUNK [place] Insurance:SELF PAY [facility] Number: Effective Repository Date:2018-06-14 06/14/2018 MARIA G K Primary MARIA G Jarquin [place] [id number] [place] Insurance:MEDICARE BAKERDOB: [facility], PART A [facility] [id number] Regional Medical Center [address]Noq: Number: Repository [id number] () Date:2018-06-14 06/14/2018 Secondary MARIA G Britton [place] Insurance:AARPPolicy BAKERDOB: Community Number: [id number] Hospital [id number] Repository Date:8607-02-08[address], [place] [address]CO: 06/14/2018 Tertiary NOT GIVENUNK [place] Insurance:SELF PAY [facility] Number: Effective Repository Date:2018-06-14 06/14/2018 MARIA G K Primary MARIA G Jarquin [place] [id number] [place] Insurance:MEDICARE BAKERDOB: [facility] [id number] Regional Medical Center [address]Zzl: Number: Repository [id number] () Date:2018-06-14 06/14/2018 Secondary MARIA G K [place] Insurance:AARPPolicy BAKERDOB: Community Number: [id number] Hospital [id number] Repository Date:3134-80-64SS [facility] [address], [place] [address]HT: 06/14/2018 Tertiary NOT GIVENUNK [place] Insurance:SELF PAY [facility] Number: Effective Repository Date:2018-06-14 06/14/2018 MARIA G Jarquin Primary MARIA G Jarquin [place] [id number] [place] Insurance:MEDICARE BAKERDOB: [facility] [id number] Regional Medical Center [address]Oor: Number: Repository [id number] () Date:2018-06-14 06/14/2018 Secondary MARIA G Britton [place] Insurance:AARPPolicy BAKERDOB: Community Number: [id number] Hospital [id number] Repository Date:3767-97-46US [facility] [address]QQ, [place] [address]XW: 06/14/2018 Tertiary NOT GIVENUNK [place] Insurance:SELF PAY [facility] Number: Effective Repository Date:2018-06-14 06/11/2018 Maria G Jarquin Primary Maria G Jarquin [place] [id number] [place] Insurance:MEDICARE [facility] [id number] Regional Medical Center [address]Afj: Number: Repository [id number] () Date:2011-11-11 06/11/2018 Secondary Maria G K [place] Insurance:AARPPolicy BakerDOB: Community Number: [id number] [facility] [id number] Repository Date:6439-61-31[address], [place] [address]CW: 06/11/2018 Tertiary NOT GIVENUNK [place] Insurance:SELF PAY [facility] Number: Effective Repository Date:2018-05-12 05/07/2018 Maria G Jarquin Primary Maria G Rosales [id number] [place] Insurance:MEDICARE [place]DOB: [place] [facility] [place] [facility] [id number] [address]Nza: Number: Repository [id number] () Date:2011-11-11 05/07/2018 Secondary Maria G Jarquin [place] Insurance:AARPPolicy BakerDOB: Community Number: [id number] [facility] [id number] Repository Date:9203-53-37YI [facility] [address], [place] [address]GJ: 05/07/2018 Tertiary NOT GIVENUNK [place] Insurance:SELF PAY [facility] Number: Effective Repository Date:2018-04-12 04/15/2018 Maria G Jarquin Primary Maria G Rosales [id number] [place] Insurance:MEDICARE BakerDOB: [place] [facility] [place] [facility] [id number] [facility] Medical Center [address]Zrg: Number: Repository [id number] () Date:2018-04-15 04/15/2018 Secondary Maria G Jarquin [place] Insurance:AARPPolicy BakerDOB: Community Number: [id number] Hospital [id number] Repository Date:2130-96-91CD [facility] [place]20[place], [place] [address]DM: 04/15/2018 Tertiary NOT GIVENUNK [place] Insurance:SELF PAY [facility] Number: Effective Repository Date:2018-04-15 04/09/2018 Maria G Jarquin Primary Maria G Abreuoster [id number] [place] Insurance:MEDICARE [place] [facility] [id number] Regional Medical Center [address]Ecw: Number: Repository [id number] (HP) Date:2011-11-11 04/09/2018 Secondary Maria G Jarquin [place] Insurance:AARPPolicy BakerDOB: Community Number: [id number] Hospital [id number] Repository Date:5906-33-07[address]QPOXMAA, [place] [address]IR: 04/09/2018 Tertiary NOT GIVENUNK [place] Insurance:SELF PAY [facility] Number: Effective Repository Date:2018-03-12 03/05/2018 Maria G Jarquin Primary Maria G Abreuoster [id number] [place] Insurance:MEDICARE BakerDOB: [facility] [id number] Regional Medical Center [address]Zav: Number: Repository [id number] () Date:2011-11-11 03/05/2018 Secondary Maria G K [place] Insurance:AARPPolicy BakerDOB: Community Number: [id number] Hospital [id number] Repository Date:2486-59-64EK [address]QTF[address], [place] [address]SY: 03/05/2018 Tertiary NOT GIVENUNK [place] Insurance:SELF PAY [facility] Number: Effective Repository Date:2018-02-09 02/05/2018 Maria G Jarquin Primary Maria G Rosales [id number] [place] Insurance:MEDICARE BakerDOB: [facility] [id number] Regional Medical Center [address]Hum: Number: Repository [id number] () Date:2011-11-11 02/05/2018 Secondary Maria G Britton [place] Insurance:AARPPolicy BakerDOB: Community Number: [id number] [facility] [id number] Repository Date:7992-00-69AA [address]BYMMSQ, [place] [address]IN: 02/05/2018 Tertiary NOT GIVENUNK [place] Insurance:SELF PAY [facility] Number: Effective Repository Date:2018-01-10 01/08/2018 Maria G Jarquin Primary Maria G Jarquin [place] [id number] Insurance:MEDICARE BakerDOB: [facility] [id number] Regional Medical Center [address]Fjl: Number: Repository [id number] (HP) Date:2011-11-11 01/08/2018 Secondary Maria G K [place] Insurance:AARPPolicy BakerDOB: Community Number: [id number] [facility] [id number] Repository Date:6548-45-69HR [address]IZHPYC, [place] [address]LF: 01/08/2018 Tertiary NOT GIVENUNK [place] Insurance:SELF PAY [facility] Number: Effective Repository Date:2017-12-10 12/04/2017 Maria G K Primary Maria G K [place] [id number] [address] Insurance:MEDICARE BakerDOB: [facility], [facility] [id number] Regional Medical Center [address]Yax: Number: Repository [id number] (HP) Date:2011-11-11 12/04/2017 Secondary Maria G K [place] Insurance:AARPPolicy BakerDOB: Community Number: [id number] Hospital [id number] Repository Date:4151-35-82NO [address]CAP[place], [place] [address]WG: 12/04/2017 Tertiary NOT GIVENUNK [place] Insurance:SELF PAY [facility] Number: Effective Repository Date:2017-11-10 11/06/2017 Maria G K Primary Maria G K [place] [id number] [place] Insurance:MEDICARE BakerDOB: [facility] [id number] Regional Medical Center [address]Ozl: Number: Repository [id number] () Date:2011-11-11 11/06/2017 Secondary Maria G K [place] Insurance:AARPPolicy BakerDOB: Community Number: [id number] Hospital [id number] Repository Date:8054-20-29VY [address]GWJZCYD, [place] [address]LX: 11/06/2017 Tertiary NOT GIVENUNK [place] Insurance:SELF PAY [facility] Number: Effective Repository Date:2017-10-10 10/09/2017 Maria G Jarquin Primary Maria G [id number] [place] Insurance:MEDICARE [facility]DOB[facility] [address] [place] [address]Pyk: Number: Repository [id number] (HP) Date:2011-11-11 10/09/2017 Secondary Maria G Jarquin [place] Insurance:AARPPolicy BakerDOB: Community Number: [id number] [id number] Repository Date:2897-09-36YM [address]EMLKNZY, [place] [address]IT: 10/09/2017 Tertiary NOT GIVENUNK [place] Insurance:SELF PAY [facility] Number: Effective Repository Date:2017-09-12 09/11/2017 Maria G Jarquin Primary Maria G Rosales [id number] [place] Insurance:MEDICARE BakerDOB: [facility] [id number] [address]Faj: Number: Repository [id number] () Date:2011-11-11 09/11/2017 Secondary Maria G Jarquin [place] Insurance:AARPPolicy BakerDOB: Community Number: [id number] [place] [address] [id number] Repository Date:0282-24-90GH [address]EIJGYBK, [place] [address]EQ: 09/11/2017 Tertiary NOT GIVENUNK [place] Insurance:SELF PAY [facility] Number: Effective Repository Date:2017-08-12 08/07/2017 Maria G Jarquin Primary Maria G Rosales [id number] [place] Insurance:MEDICARE [facility] [address] [address]Tgi: Number: Repository [id number] (HP) Date:2011-11-11 08/07/2017 Secondary Maria G Britton [place] Insurance:AARPPolicy BakerDOB: Community Number: [id number] Hospital [id number] Repository Date:5134-58-85ZQ [address]THFDTPE, [place] [address]TN: 08/07/2017 Tertiary NOT GIVENKANDICE [place] Insurance:SELF PAY [facility] Number: Effective Repository Date:2017-07-12
== END 2018-07-08 18:38 | disposition skilled nursing facility (03) ==
LOC: SDC 13:46 → AC 13:49
PROVIDERS: Family Provider Internal Medicine; PCP Internal Medicine; Referring Provider Podiatrist; Visit Provider Podiatrist
PROC: (CPT 11042; principal; 2018-07-08 14:45)
DX: I89.0 Lymphedema, not elsewhere classified (principal); L97.922 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chronic ulcer of unspecified part of left lower leg with fat layer exposed; E11.42 Type 2 diabetes mellitus with diabetic polyneuropathy; G20 Parkinson's disease; E11.9 Type 2 diabetes mellitus without complications; I10 Essential (primary) hypertension; E66.01 Morbid (severe) obesity due to excess calories; Z68.41 Body mass index [BMI] 40.0-44.9, adult
CPT/HCPCS: 00400; 11042; 11045; 86850; 86900; J7120

== ENCOUNTER 2018-08-06 10:45 | Outpatient (RCR) | payer MEDICARE, OTHER, SELFPAY ==
[2018-06-12 00:43] VITALS: BP 123/75; PULSE 99; RESP 20; TEMP 36
[2018-07-08 14:14] VITALS: BMI 41.9
[2018-07-16 10:30] VITALS: BP 115/61; PULSE 74; RESP 18; TEMP 36; BMI 41.9
--- NOTE | 2018-07-16 11:12 | WC ---
bilat lower legs vac sponges moistened with saline steristrips leftin place .
--- NOTE | 2018-07-16 13:14 | PN.PCM_ITS ---
(1) Chronic ulcer of right leg with fat layer exposed Status: Chronic Code(s): L97.912 - 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chronic ulcer of unspecified part of right lower leg with fat layer exposed (2) Delayed wound healing Status: Chronic Code(s): T14.8XXD - Other injury of unspecified body region, subsequent encounter (3) Lymphedema Status: Chronic Code(s): I89.0 - Lymphedema, not elsewhere classified (4) Morbid obesity Status: Chronic Code(s): E66.01 - Morbid (severe) obesity due to excess calories (5) Ulcer of left lower extremity with fat layer exposed Status: Chronic Code(s): L97.922 - 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chronic ulcer of unspecified part of left lower leg with fat layer exposed (6) Swelling of left lower extremity Status: Chronic Code(s): M79.89 - Other specified soft tissue disorders (7) Swelling of right lower extremity Status: Chronic Code(s): M79.89 - Other specified soft tissue disorders Type of Wound Date of Service: 07/16/18 Chief Complaint: Bilateral lower extremity swelling, edema, and lymphedema; chronic venous insufficiency; bilateral calf ulcerations. History of Wound: This is a 72-year-old female with a long-standing history of chronic swelling, edema, and lymphedema in her lower extremities. She tries to elevate her legs more. She suffers from Parkinson's disease, and has difficulties maneuvering herself into and out of a regular bed. She has been under the care of Dr. Kolby Kunz, vascular surgeon, and has undergone staged, bilateral lower extremity venous ablation procedures. Additional arterial intervention was not recommended and it is noted she has triphasic waveforms to bilateral ankles. She resides at the [facility]. She had versa jet debridement with amnio fill advanced wound care prior to application last week in the operating room. She is left with a wound VAC in place to the right leg and overlying secondary dressing is intact to the left leg as advised. She continues to elevate. Progress of Wound: Improving quality - Physical Exam Vital Signs Temp Pulse Resp BP 96.8 F L 74 18 115/61 07/16/18 10:30 07/16/18 10:30 07/16/18 10:30 07/16/18 10:30 General: Alert, Oriented x3, Cooperative Extremities: No cyanosis, Capillary Refill Less than 3 Seconds, No Calf Tenderness - Negative Cassie breath and bilateral, Diminished Peripheral Pulses, Edema - Bilateral lower extremities lymphedema, Tenderness - Pain with ulcer manipulation and dressing change Skin: Ulcer/ Wound - No purulence, erythema, strain, odor, or acute signs of infection bilateral lower extremities. The peripheral skin is very indurated, atrophic and without hair. There is hematogenous drainage upon removal of the wound VAC to the right leg. Wound Measurements and Assessment WC - Nurse 1 - General Ulcer Measurement Start: 07/16/18 10:29 Freq: Status: Active Protocol: Activity Type Activity Date Activity User E-Sign Co-Sign Detail Recorded Client Recorded Date Recorded By Document 07/16/18 10:30 RB [id number] 07/16/18 11:13 RB 07/16/18 10:30 Wound Center Nurse 1 [Edema Assessment] -Lower Limb Edema Present Yes -Right Calf (cm) 47.5 -Right Ankle (cm) 26.5 -Left Calf (cm) 41.5 -Left Ankle (cm) 23 07/16/18 11:12 Wound Center by Betty Cherry lower legs vac sponges moistened with saline steristrips leftin place . Initialized on 07/16/18 11:12 - END OF NOTE WC - Nurse 2 - General Ulcer CM Notes Start: 07/16/18 10:29 Freq: Status: Active Protocol: Activity Type Activity Date Activity User E-Sign Co-Sign Detail Recorded Client Recorded Date Recorded By Document 07/16/18 11:31 JF [id number] 07/16/18 11:33 JF 07/16/18 11:31 Wound Center Nurse 2 [Procedure/Treatment] #8 [id number] CALF cluster -Correct Patient No -Correct Side, Site, Position No -Correct Procedure No -Procedure Performed No -Wound/Ulcer Outcome Not Healed -Other Amniofill in place... -Offloading No -Treatment Response Procedure Not Tolerated Well #4 L Lat LE cluster -Correct Patient No -Correct Side, Site, Position No -Correct Procedure No -Procedure Performed No -Wound/Ulcer Outcome Not Healed -Ulcer Cleansing Rinsed/ Irrigated with Saline -Foul Odor after Cleansing No -Bleeding Controlled with Pressure -Other Amniofill in place. -Offloading No -Treatment Response Procedure Not Tolerated Well [See Physician Procedure note for Specifics] Musculoskeletal: No Tenderness to Palpation of Joints or Extremities - Patient, Muscle Wasting Neurological: Sensory exam intact to light touch and pain Psych/Mental Status: Normal Affect, Appropriate Debridement Note Post-Debridement Measurements/Treatment WC - Nurse 2 - General Ulcer CM Notes Start: 07/16/18 10:29 Freq: Status: Active Protocol: Activity Type Activity Date Activity User E-Sign Co-Sign Detail Recorded Client Recorded Date Recorded By Document 07/16/18 11:31 [id number] 07/16/18 11:33 PARVIZ 07/16/18 11:31 Wound Center Nurse 2 #8 [id number] CALF cluster -Correct Patient No -Correct Side, Site, Position No -Correct Procedure No -Procedure Performed No -Wound/Ulcer Outcome Not Healed -Other Amniofill in place... -Offloading No -Treatment Response Procedure Not Tolerated Well #4 L Lat LE cluster -Correct Patient No -Correct Side, Site, Position No -Correct Procedure No -Procedure Performed No -Wound/Ulcer Outcome Not Healed -Ulcer Cleansing Rinsed/ Irrigated with Saline -Foul Odor after Cleansing No -Bleeding Controlled with Pressure -Other Amniofill in place. -Offloading No -Treatment Response Procedure Not Tolerated Well No debridement was completed today - Advanced wound care product is intact and debridement will be considered next week. Assessment/Plan Assessment: Right leg ulcer with fat layer exposed. Left leg ulcer with fat layer exposed. 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 Venous insufficiency suspected lower extremities. Edema bilateral lower extremities. Diabetes with elevated hemoglobin A1c level. Parkinson's disease. Gait impairment. Obesity. Delayed healing. Malnutrition. Right and left leg pain Plan: I reviewed her case and ongoing treatment plan. The secondary dressings were replaced. She will resume advanced wound VAC application which will be applied tomorrow at the [facility]. To keep both of these leg dressings intact until she follows up next week. A prescription for [place] was provided and she was advised to premedicate for better pain control next week prior to wound care center visit. 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 It is noted her body habitus is limiting the results. To continue diuresis plan with her primary care physician. Her noninvasive vascular studies demonstrate calcification making this nonconclusive. She did follow-up with Dr. Kunz for this and no intervention is planned. Hardening of the arteries is noted however there is triphasic waveforms to bilateral ankle levels. Today, a multilayer later compression dressing was applied to the lower extremities. She is advised to use CircAid compression in addition at home. A referral to the lymphedema clinic was also provided and potential intervention such as lymphatic massage, other compression pumps and garments were discussed. A compression pump has been received and she was advised to continue this twice daily. To continue absorption dressings. To keep legs elevated above heart while resting. To avoid lying directly on the wound while seated or in bed. To avoid idle standing or sitting for prolonged time. To monitor for signs of infection; she was reassured that this is not noted today. To complete course of antibiotics. To RTC (wound center) in 1 week with wound center or call sooner if she has questions or concerns. I answered all of her questions.
[2018-07-23 11:35] VITALS: BP 143/51; PULSE 64; RESP 18; TEMP 35.9; BMI 41.9
--- NOTE | 2018-07-23 13:34 | PN.PCM_ITS ---
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 Status: Chronic Current Visit: Yes Code(s): L97.912 - 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chronic ulcer of unspecified part of right lower leg with fat layer exposed (3) Delayed wound healing Status: Chronic Current Visit: Yes Code(s): T14.8XXD - Other injury of unspecified body region, subsequent encounter (4) Lymphedema Status: Chronic Current Visit: Yes Code(s): I89.0 - Lymphedema, not elsewhere classified (5) Morbid obesity Status: Chronic Current Visit: Yes Code(s): E66.01 - Morbid (severe) obesity due to excess calories (6) Swelling of left lower extremity Status: Chronic Current Visit: Yes Code(s): M79.89 - Other specified soft tissue disorders (7) Swelling of right lower extremity Status: Chronic Current Visit: Yes Code(s): M79.89 - Other specified soft tissue disorders Type of Wound Date of Service: 07/23/18 Chief Complaint: Bilateral lower extremity swelling, edema, and lymphedema; chronic venous insufficiency; bilateral calf ulcerations. History of Wound: This is a 72-year-old female with a long-standing history of chronic swelling, edema, and lymphedema in her lower extremities. She tries to elevate her legs more. She suffers from Parkinson's disease. She resides at the [facility]. She had versa jet debridement with amnio fill advanced wound care prior to application last week in the operating room. She has left with a wound VAC in place to the right leg and overlying secondary dressing is intact to the left leg as advised. This is very uncomfortable for her today even with premedication. She is with her daughter today. Progress of Wound: Improving quality - Physical Exam Vital Signs Temp Pulse Resp BP 96.6 F L 64 18 143/51 H 07/23/18 11:35 07/23/18 11:35 07/23/18 11:35 07/23/18 11:35 General: Alert, Oriented x3, Cooperative Extremities: No cyanosis, Capillary Refill Less than 3 Seconds, No Calf Tenderness - Negative Cassie and Benitez sign bilateral, Diminished Peripheral Pulses, Edema - Right moderate and left decrease leg edema, Tenderness - Pain with wound manipulation and debridement bilateral Skin: Ulcer/ Wound - No purulence, erythema, streaking, odor, or infection bilateral. The right leg ulcer bed is granular and healthy and bleeding without signs of infection. The left leg is granular with partial fibrous tissue. Skin peeling is noted. Peripheral skin is hairless and atrophic. Wound Measurements and Assessment WC - Nurse 1 - General Ulcer Measurement Start: 07/16/18 10:29 Freq: Status: Active Protocol: Activity Type Activity Date Activity User E-Sign Co-Sign Detail Recorded Client Recorded Date Recorded By Document 07/23/18 11:35 DV [id number] 07/23/18 11:50 DV 07/23/18 11:35 Wound Center Nurse 1 [Ulcer Assessment] #4 L Lat LE cluster -Combined with other wound No -Photo Taken No [Edema Assessment] -Left Calf (cm) 47 -Left Ankle (cm) 24 WC - Nurse 2 - General Ulcer CM Notes Start: 07/16/18 10:29 Freq: Status: Active Protocol: Activity Type Activity Date Activity User E-Sign Co-Sign Detail Recorded Client Recorded Date Recorded By Document 07/23/18 12:32 JF [id number] 07/23/18 12:34 PARVIZ 07/23/18 12:32 Wound Center Nurse 2 [Procedure/Treatment] #8 [id number] CALF cluster -Time 12:32 -Correct Patient Yes -Correct Side, Site, Position Yes -Correct Procedure Yes -Procedure Performed Yes -Type of Procedure Debridement -Clinical Debridement Selective -Post Debridement Size (cm) - Length 28.5 -Post Debridement Size (cm) - Width 7.2 -Post Debridement Size (cm) - Depth 0.3 -Total Square Cm 205.20 -Wound/Ulcer Outcome Not Healed -Ulcer Cleansing Rinsed/ Irrigated with Saline -Foul Odor after Cleansing No -Bioengineered Tissue No -Bleeding Controlled with Pressure -Offloading No -Treatment Response Procedure Tolerated Well #4 L Lat LE cluster -Time 12:33 -Correct Patient Yes -Correct Side, Site, Position Yes -Correct Procedure Yes -Procedure Performed Yes -Type of Procedure Debridement -Clinical Debridement Subcutaneous -Post Debridement Size (cm) - Length 18 -Post Debridement Size (cm) - Width 11.5 -Post Debridement Size (cm) - Depth 0.2 -Total Square Cm 207.0 -Wound/Ulcer Outcome Not Healed -Ulcer Cleansing Rinsed/ Irrigated with Saline -Foul Odor after Cleansing No -Bioengineered Tissue No -Bleeding Controlled with Pressure -Offloading No -Treatment Response Procedure Tolerated Well [See Physician Procedure note for Specifics] Pain Scale: 0-10 Numeric [Pain] -Is Patient Pain Free? Yes Musculoskeletal: No Tenderness to Palpation of Joints or Extremities, Muscle Wasting, - - Compartments soft bilateral lower extremities Neurological: Sensory exam intact to light touch and pain Psych/Mental Status: Normal Affect, Appropriate Debridement Note Post-Debridement Measurements/Treatment WC - Nurse 2 - General Ulcer CM Notes Start: 07/16/18 10:29 Freq: Status: Active Protocol: Activity Type Activity Date Activity User E-Sign Co-Sign Detail Recorded Client Recorded Date Recorded By Document 07/16/18 11:31 [id number] 07/16/18 11:33 Document 07/23/18 12:32 [id number] 07/23/18 12:34 07/16/18 07/23/18 11:31 12:32 Wound Center Nurse 2 #8 [id number] CALF cluster -Time 12:32 -Correct Patient No Yes -Correct Side, Site, Position No Yes -Correct Procedure No Yes -Procedure Performed No Yes -Type of Procedure Debridement -Clinical Debridement Selective -Post Debridement Size (cm) - Length 28.5 -Post Debridement Size (cm) - Width 7.2 -Post Debridement Size (cm) - Depth 0.3 -Total Square Cm 205.20 -Wound/Ulcer Outcome Not Healed Not Healed -Ulcer Cleansing Rinsed/ Irrigated with Saline -Foul Odor after Cleansing No -Bioengineered Tissue No -Bleeding Controlled with Pressure -Other Amniofill in place... -Offloading No No -Treatment Response Procedure Not Procedure Tolerated Well Tolerated Well #4 L Lat LE cluster -Time 12:33 -Correct Patient No Yes -Correct Side, Site, Position No Yes -Correct Procedure No Yes -Procedure Performed No Yes -Type of Procedure Debridement -Clinical Debridement Subcutaneous -Post Debridement Size (cm) - Length 18 -Post Debridement Size (cm) - Width 11.5 -Post Debridement Size (cm) - Depth 0.2 -Total Square Cm 207.0 -Wound/Ulcer Outcome Not Healed Not Healed -Ulcer Cleansing Rinsed/ Rinsed/ Irrigated with Irrigated with Saline Saline -Foul Odor after Cleansing No No -Bioengineered Tissue No -Bleeding Controlled with Pressure Pressure -Other Amniofill in place. -Offloading No No -Treatment Response Procedure Not Procedure Tolerated Well Tolerated Well Pain Scale: 0-10 Numeric Is Patient Pain Free? Yes Wound debrided: leg Laterality: Left Type of Debridement: Excisional debridement Anesthesia Used: 5% Lidocaine Gel Depth: in the subcutaneous layer Percentage of wound debrided: 100 Instrument Used: 7mm curette Tissue Removed: fibrous, devitalized subcutaneous, biofilm, slough Severity: Fat Layer Exposed Amount of bleeding with debridement: Mild Bleeding Controlled with: Pressure Patient tolerated procedure well - Additional Wound Wound debrided: leg circumferential ulcer Laterality: Right Type of Debridement: Selective debridement Anesthesia Used: 5% Lidocaine Gel Depth: Down to and including healthy tissue, in the subcutaneous layer Percentage of wound debrided: 100 Instrument Used: Forceps, - - gauze/ adaptic adhered removal Tissue Removed: fibrous, devitalized subcutaneous, biofilm, slough Severity: Limited To Skin Breakdown Amount of bleeding with debridement: Mild Bleeding Controlled with: Pressure Patient tolerated procedure: Patient tolerated procedure well Assessment/Plan Active Problems Delayed wound healing (Chronic) Lymphedema (Chronic) Morbid obesity (Chronic) Ulcer of left lower extremity with fat layer exposed (Chronic) Swelling of left lower extremity (Chronic) Swelling of right lower extremity (Chronic) Chronic ulcer of right leg with fat layer exposed (Chronic) Assessment: Right leg ulcer with fat layer exposed. Left leg ulcer with fat layer exposed. 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 Venous insufficiency suspected lower extremities. Edema bilateral lower extremities. Diabetes with elevated hemoglobin A1c level. Parkinson's disease. Gait impairment. Obesity. Delayed healing. Malnutrition. Right and left leg pain Plan: I reviewed her case and ongoing treatment plan. Right leg selective debridement and left leg subcutaneous excisional debridement performed as noted in the clinical panel. Aquacel Ag was applied to all sites with multilayer additional secondary dressings to control drainage. She will resume advanced wound VAC application to the right leg, which will be applied tomorrow at the [facility]. To keep both of these leg dressings intact until Saturday which I recommend changing both of these dressings again. A prescription for [place] was provided last visit, and she was advised to premedicate for better pain control next week prior to wound care center visit. 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 To continue diuresis plan with her primary care physician. Her noninvasive vascular studies demonstrate calcification making this nonconclusive. She did follow-up with Dr. Kunz for this and no intervention is planned. Hardening of the arteries is noted however there is triphasic waveforms to bilateral ankle levels. Today, a multilayer later compression dressing was applied to the lower extremities. To keep legs elevated above heart while resting. To avoid lying directly on the wound while seated or in bed. To avoid idle standing or sitting for prolonged time. To monitor for signs of infection; she was reassured that this is not noted today. To complete course of antibiotics. Pending treatment response she understands additional advanced wound care products may be applied in the clinic or operating room setting. She will be re-evaluated again next week. To RTC (wound center) in 1 week with wound center or call sooner if she has questions or concerns. I answered all of her questions. The clinical note and orders will be shared with the [facility] facility for communication purposes.
[2018-07-30 11:08] VITALS: BP 77/42; RESP 16; TEMP 36; BMI 41.9
--- NOTE | 2018-07-30 14:04 | PN.PCM_ITS ---
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 Status: Chronic Current Visit: Yes Code(s): L97.912 - 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chronic ulcer of unspecified part of right lower leg with fat layer exposed (3) Delayed wound healing Status: Chronic Current Visit: Yes Code(s): T14.8XXD - Other injury of unspecified body region, subsequent encounter (4) Lymphedema Status: Chronic Current Visit: Yes Code(s): I89.0 - Lymphedema, not elsewhere classified (5) Morbid obesity Status: Chronic Current Visit: Yes Code(s): E66.01 - Morbid (severe) obesity due to excess calories (6) Swelling of left lower extremity Status: Chronic Current Visit: Yes Code(s): M79.89 - Other specified soft tissue disorders (7) Swelling of right lower extremity Status: Chronic Current Visit: Yes Code(s): M79.89 - Other specified soft tissue disorders Type of Wound Chief Complaint: Bilateral lower extremity swelling, edema, and lymphedema; chronic venous insufficiency; bilateral calf ulcerations. History of Wound: This is a 72-year-old female with a long-standing history of chronic swelling, edema, and lymphedema in her lower extremities. She tries to elevate her legs more. She suffers from Parkinson's disease. She resides at the [facility]. She had versa jet debridement with amnio fill advanced wound care previously in the operating room. She has left her wound VAC in place to the right leg and aquacel ag dressing is intact to the left leg. She is with her daughter today. There is new moisture to the back of her right leg that the nursing staff is been covered with abdominal pad. She denies known odor or redness to this site. Progress of Wound: Improving - Physical Exam Vital Signs Temp Pulse Resp BP 96.8 F L 64 16 77/42 L 07/30/18 11:08 07/23/18 11:35 07/30/18 11:08 07/30/18 11:08 General: Alert, Oriented x3, Cooperative Extremities: No cyanosis, Capillary Refill Less than 3 Seconds, No Calf Tenderness - Negative Cassie and Benitez sign bilateral, Diminished Peripheral Pulses, Edema - Bilateral lower extremity edema has decreased. Her lower extremity edema status remains consistent with lymphedema including the thighs and legs Skin: Ulcer/ Wound - No purulence, erythema, streaking, odor, or acute signs of infection. There is improved granulation tissue to the right leg that is healthy beefy and granular. The left leg is mainly granular with some interspersed fibrous tissue. The posterior right proximal leg and distal thigh appear to be macerated there is concern of a yeast or fungal contamination. There is no induration on palpation streaking or erythema or odor. Wound Measurements and Assessment WC - Nurse 1 - General Ulcer Measurement Start: 07/16/18 10:29 Freq: Status: Active Protocol: Activity Type Activity Date Activity User E-Sign Co-Sign Detail Recorded Client Recorded Date Recorded By Document 07/30/18 11:08 DV [id number] 07/30/18 11:47 DV 07/30/18 11:08 Wound Center Nurse 1 [Ulcer Assessment] #8 [id number] CALF cluster -Combined with other wound No -Current Size (cm) - Length 9.5 -Current Size (cm) - Width 26 -Current Size (cm) - Depth 0.1 -Total Square Cm 247.0 -Photo Taken No -Epithelialization Small 1-33% -Tunneling No -Undermining/Tunneling No -Circular Undermining No -Exudate Amt Large (67-100%) -Exudate Type Sanguineous -Wound Margin Distinct, Outline Attached -Granulation Amt Large (67-100%) -Granulation Quality Red -Slough/Fibrin No -Necrosis Amt None Present (0 %) -Texture (Vickie-wound Skin Appearance) Scarring -Moisture (Vickie-wound Skin Appearance Dry/Scaly ) -Color (Vickie-wound Skin Appearance) Erythema Hemosiderin Staining -Temperature (Vickie-wound Skin No Abnormality Appearance) (Pt Warm) -Tenderness on Palpation (Vickie-wound Yes Skin Appearance) -Ulcer Cleansing Wound Cleanser -Foul Odor after Cleansing No -Anesthetic Used 4% Lidocaine Solution #4 L Lat LE cluster -Combined with other wound No -Current Size (cm) - Length 13.6 -Current Size (cm) - Width 9.3 -Current Size (cm) - Depth 0.2 -Total Square Cm 126.48 -Photo Taken No -Epithelialization None Present -Tunneling No -Undermining/Tunneling No -Circular Undermining No -Exudate Amt Large (67-100%) -Exudate Type Serous -Wound Margin Distinct, Outline Attached -Granulation Amt Large (67-100%) -Granulation Quality Red -Slough/Fibrin Yes -Necrosis Amt Small (1-33%) -Necrotic Tissue Type Adherent Slough -Texture (Vickie-wound Skin Appearance) Excoriation Friable Scarring Rash -Moisture (Vickie-wound Skin Appearance Dry/Scaly ) -Color (Vickie-wound Skin Appearance) Erythema Hemosiderin Staining -Temperature (Vickie-wound Skin No Abnormality Appearance) (Pt Warm) -Tenderness on Palpation (Vickie-wound Yes Skin Appearance) -Ulcer Cleansing Wound Cleanser -Foul Odor after Cleansing No -Anesthetic Used 4% Lidocaine Solution [Edema Assessment] -Lower Limb Edema Present Yes -Right Calf (cm) 48 -Right Ankle (cm) 25.5 -Left Calf (cm) 38 -Left Ankle (cm) 24.5 Musculoskeletal: No Tenderness to Palpation of Joints or Extremities, Muscle Wasting Neurological: Sensory exam intact to light touch and pain Psych/Mental Status: Normal Affect, Appropriate Debridement Note Post-Debridement Measurements/Treatment WC - Nurse 2 - General Ulcer CM Notes Start: 07/16/18 10:29 Freq: Status: Active Protocol: Activity Type Activity Date Activity User E-Sign Co-Sign Detail Recorded Client Recorded Date Recorded By Document 07/16/18 11:31 [id number] 07/16/18 11:33 Document 07/23/18 12:32 [id number] 07/23/18 12:34 07/16/18 07/23/18 11:31 12:32 Wound Center Nurse 2 #8 [id number] CALF cluster -Time 12:32 -Correct Patient No Yes -Correct Side, Site, Position No Yes -Correct Procedure No Yes -Procedure Performed No Yes -Type of Procedure Debridement -Clinical Debridement Selective -Post Debridement Size (cm) - Length 28.5 -Post Debridement Size (cm) - Width 7.2 -Post Debridement Size (cm) - Depth 0.3 -Total Square Cm 205.20 -Wound/Ulcer Outcome Not Healed Not Healed -Ulcer Cleansing Rinsed/ Irrigated with Saline -Foul Odor after Cleansing No -Bioengineered Tissue No -Bleeding Controlled with Pressure -Other Amniofill in place... -Offloading No No -Treatment Response Procedure Not Procedure Tolerated Well Tolerated Well #4 L Lat LE cluster -Time 12:33 -Correct Patient No Yes -Correct Side, Site, Position No Yes -Correct Procedure No Yes -Procedure Performed No Yes -Type of Procedure Debridement -Clinical Debridement Subcutaneous -Post Debridement Size (cm) - Length 18 -Post Debridement Size (cm) - Width 11.5 -Post Debridement Size (cm) - Depth 0.2 -Total Square Cm 207.0 -Wound/Ulcer Outcome Not Healed Not Healed -Ulcer Cleansing Rinsed/ Rinsed/ Irrigated with Irrigated with Saline Saline -Foul Odor after Cleansing No No -Bioengineered Tissue No -Bleeding Controlled with Pressure Pressure -Other Amniofill in place. -Offloading No No -Treatment Response Procedure Not Procedure Tolerated Well Tolerated Well Pain Scale: 0-10 Numeric Is Patient Pain Free? Yes Wound debrided: leg Laterality: Right Wound Grade/Stage: grade 1 Type of Debridement: Excisional debridement Anesthesia Used: 4% Lidocaine Solution Depth: in the subcutaneous layer Percentage of wound debrided: 100 Instrument Used: #15 blade Tissue Removed: fibrous, devitalized subcutaneous, biofilm, slough Severity: Fat Layer Exposed Amount of bleeding with debridement: Mild Bleeding Controlled with: Pressure Patient tolerated procedure well - Additional Wound Wound debrided: leg Laterality: Left Wound Grade/Stage: grade 1 Type of Debridement: Excisional debridement Anesthesia Used: 4% Lidocaine Solution Depth: in the subcutaneous layer Percentage of wound debrided: 100 Instrument Used: #15 blade Tissue Removed: fibrous, devitalized subcutaneous, biofilm, slough Severity: Fat Layer Exposed Amount of bleeding with debridement: Mild Bleeding Controlled with: Pressure Patient tolerated procedure: Patient tolerated procedure well Assessment/Plan Active Problems Delayed wound healing (Chronic) Lymphedema (Chronic) Morbid obesity (Chronic) Ulcer of left lower extremity with fat layer exposed (Chronic) Swelling of left lower extremity (Chronic) Swelling of right lower extremity (Chronic) Chronic ulcer of right leg with fat layer exposed (Chronic) Assessment: Right leg ulcer with fat layer exposed. Left leg ulcer with fat la jeremy exposed. Concern for tinea or yeast infection to the right leg / maceration. 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 Venous insufficiency suspected lower extremities. Edema bilateral lower extremities. Diabetes with elevated hemoglobin A1c level. Parkinson's disease. Gait impairment. Obesity. Delayed healing. Malnutrition. Right and left leg pain Plan: I reviewed her case and ongoing treatment plan. Aquacel Ag was applied to all sites with multilayer additional secondary dressings to control drainage. She will resume advanced wound VAC application to the right leg, which will be applied tomorrow at the [facility]. To keep both of these leg dressings intact until Saturday which I recommend changing both of these dressings again. A prescription for [place] was previously provided for premedication prior to dressing changes. 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 To continue diuresis plan with her primary care physician. Her noninvasive vascular studies demonstrate calcification making this nonconclusive. She did follow-up with Dr. Kunz for this and no intervention is planned. Hardening of the arteries is noted however there is triphasic waveforms to bilateral ankle levels. Today, a multilayer later compression dressing was applied to the lower extremities. To keep legs elevated above heart while resting. To avoid lying directly on the wound while seated or in bed. To avoid idle standing or sitting for prolonged time. To monitor for signs of infection; she was reassured that this is not noted today. I recommend additional advanced wound care products in the operating room setting. Surgical nurse coordinator, Ras, will contact her to get this scheduled. An updated history and physical exam will be needed and this will be organized with her halfway facility. To RTC (wound center) in 1 week with wound center or call sooner if she has questions or concerns. I answered all of her questions.
[2018-08-06 10:58] VITALS: BP 71/42; PULSE 67; RESP 18; TEMP 36.1; BMI 41.9
--- NOTE | 2018-08-06 13:19 | PCM.WC.PN ---
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 Status: Chronic Current Visit: Yes Code(s): L97.912 - 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chronic ulcer of unspecified part of right lower leg with fat layer exposed (3) Delayed wound healing Status: Chronic Current Visit: Yes Code(s): T14.8XXD - Other injury of unspecified body region, subsequent encounter (4) Lymphedema Status: Chronic Current Visit: Yes Code(s): I89.0 - Lymphedema, not elsewhere classified (5) Morbid obesity Status: Chronic Current Visit: Yes Code(s): E66.01 - Morbid (severe) obesity due to excess calories (6) Swelling of left lower extremity Status: Chronic Current Visit: Yes Code(s): M79.89 - Other specified soft tissue disorders (7) Swelling of right lower extremity Status: Chronic Current Visit: Yes Code(s): M79.89 - Other specified soft tissue disorders (8) Tinea Status: Suspected Current Visit: Yes Code(s): B35.9 - Dermatophytosis, unspecified (9) Maceration of skin Status: Acute Current Visit: Yes Code(s): L98.8 - Other specified disorders of the skin and subcutaneous tissue (10) Contact with and (suspected) exposure to other bacterial communicable diseases Status: Suspected Current Visit: Yes Code(s): Z20.818 - Contact with and (suspected) exposure to other bacterial communicable diseases Type of Wound Date of Service: 08/06/18 Chief Complaint: Bilateral lower extremity swelling, edema, and lymphedema; chronic venous insufficiency; bilateral calf ulcerations. History of Wound: This is a 72-year-old female with a long-standing history of chronic swelling, edema, and lymphedema in her lower extremities. She tries to elevate her legs more. She suffers from Parkinson's disease. She resides at the [facility]. She had versa jet debridement with amnio fill advanced wound care previously in the operating room. She has left her wound VAC in place to the right leg and aquacel ag dressing is intact to the left leg. She is with her daughter today. She had clotrimazole applied to the right leg. She denies odor or redness. She denies this being washed with soap and water at the skilled nursing. Progress of Wound: Improving bilateral leg ulcers - Physical Exam Vital Signs Temp Pulse Resp BP 97 F L 67 18 71/42 L 08/06/18 10:58 08/06/18 10:58 08/06/18 10:58 08/06/18 10:58 General: Alert, Oriented x3, Cooperative Extremities: No cyanosis, Capillary Refill Less than 3 Seconds, No Calf Tenderness - Negative Cassie and Benitez sign bilateral, Diminished Peripheral Pulses, Edema - Severe bilateral lower extremities consistent with lymphedema Skin: Ulcer/ Wound - No purulence, erythema, streaking, odor, or infection bilateral lower extremities. The right leg ulcer site is very beefy red granular base. The left leg ulcer site is granular and fibrous. There is continued moisture and weeping from the posterior proximal leg extending into the posterior knee popliteal region; there is no distinct ulcer or infection noted here Wound Measurements and Assessment WC - Nurse 1 - General Ulcer Measurement Start: 07/16/18 10:29 Freq: Status: Active Protocol: Activity Type Activity Date Activity User E-Sign Co-Sign Detail Recorded Client Recorded Date Recorded By Document 08/06/18 10:58 [id number] 08/06/18 11:28 RB 08/06/18 10:58 Wound Center Nurse 1 [Ulcer Assessment] #8 [id number] CALF cluster -Combined with other wound No -Current Size (cm) - Length 10 -Current Size (cm) - Width 26 -Current Size (cm) - Depth 0.1 -Total Square Cm 260 -Photo Taken No -Epithelialization Small 1-33% -Tunneling No -Undermining/Tunneling No -Circular Undermining No -Exudate Amt Large (67-100%) -Exudate Type Sanguineous -Wound Margin Distinct, Outline Attached -Granulation Amt Large (67-100%) -Granulation Quality Red -Slough/Fibrin No -Necrosis Amt None Present (0 %) -Texture (Vickie-wound Skin Appearance) Scarring -Moisture (Vickie-wound Skin Appearance Dry/Scaly ) -Color (Vickie-wound Skin Appearance) Erythema Hemosiderin Staining -Temperature (Vickie-wound Skin No Abnormality Appearance) (Pt Warm) -Tenderness on Palpation (Vickie-wound Yes Skin Appearance) -Ulcer Cleansing Wound Cleanser -Foul Odor after Cleansing No -Anesthetic Used 4% Lidocaine Solution #4 L Lat LE cluster -Combined with other wound No -Current Size (cm) - Length 13.5 -Current Size (cm) - Width 9.5 -Current Size (cm) - Depth 0.2 -Total Square Cm 128.25 -Photo Taken No -Epithelialization None Present -Tunneling No -Undermining/Tunneling No -Circular Undermining No -Exudate Amt Large (67-100%) -Exudate Type Serous -Wound Margin Distinct, Outline Attached -Granulation Amt Large (67-100%) -Granulation Quality Red -Slough/Fibrin Yes -Necrosis Amt Small (1-33%) -Necrotic Tissue Type Adherent Slough -Texture (Vickie-wound Skin Appearance) Excoriation Friable Scarring Rash -Moisture (Vickie-wound Skin Appearance Dry/Scaly ) -Color (Vickie-wound Skin Appearance) Erythema Hemosiderin Staining -Temperature (Vickie-wound Skin No Abnormality Appearance) (Pt Warm) -Tenderness on Palpation (Vickie-wound Yes Skin Appearance) -Ulcer Cleansing Wound Cleanser -Foul Odor after Cleansing No -Anesthetic Used 4% Lidocaine Solution [Edema Assessment] -Lower Limb Edema Present Yes -Right Calf (cm) 47.5 -Right Ankle (cm) 26 -Left Calf (cm) 47 -Left Ankle (cm) 24.5 WC - Nurse 2 - General Ulcer CM Notes Start: 07/16/18 10:29 Freq: Status: Active Protocol: Activity Type Activity Date Activity User E-Sign Co-Sign Detail Recorded Client Recorded Date Recorded By Document 08/06/18 11:40 [email or web address] [id number] 08/06/18 11:42 08/06/18 11:40 Wound Center Nurse 2 [Procedure/Treatment] #8 [id number] CALF cluster -Time 11:40 -Correct Patient Yes -Correct Side, Site, Position Yes -Correct Procedure Yes -Procedure Performed Yes -Type of Procedure Debridement -Clinical Debridement Subcutaneous -Post Debridement Size (cm) - Length 10.1 -Post Debridement Size (cm) - Width 26 -Post Debridement Size (cm) - Depth 0.1 -Total Square Cm 262.6 -Wound/Ulcer Outcome Not Healed -Ulcer Cleansing Rinsed/ Irrigated with Saline -Foul Odor after Cleansing No -Bioengineered Tissue No -Bleeding Controlled with Pressure -Offloading No -Treatment Response Procedure Tolerated Well #4 L Lat LE cluster -Time 11:40 -Correct Patient Yes -Correct Side, Site, Position Yes -Correct Procedure Yes -Procedure Performed Yes -Type of Procedure Debridement -Clinical Debridement Subcutaneous -Post Debridement Size (cm) - Length 13.5 -Post Debridement Size (cm) - Width 9.6 -Post Debridement Size (cm) - Depth 0.2 -Total Square Cm 129.60 -Wound/Ulcer Outcome Not Healed -Ulcer Cleansing Rinsed/ Irrigated with Saline -Foul Odor after Cleansing No -Bioengineered Tissue No -Bleeding Controlled with Pressure -Offloading No -Treatment Response Procedure Tolerated Well [See Physician Procedure note for Specifics] Pain Scale: 0-10 Numeric [Pain] -Is Patient Pain Free? Yes Musculoskeletal: No Tenderness to Palpation of Joints or Extremities, Muscle Wasting, - - Compartments soft to palpate bilateral lower extremities Neurological: Sensory exam intact to light touch and pain Psych/Mental Status: Normal Affect, Appropriate Debridement Note Post-Debridement Measurements/Treatment WC - Nurse 2 - General Ulcer CM Notes Start: 07/16/18 10:29 Freq: Status: Active Protocol: Activity Type Activity Date Activity User E-Sign Co-Sign Detail Recorded Client Recorded Date Recorded By Document 07/16/18 11:31 [id number] 07/16/18 11:33 Document 07/23/18 12:32 [id number] 07/23/18 12:34 Document 08/06/18 11:40 [id number] 08/06/18 11:42 07/16/18 07/23/18 08/06/18 11:31 12:32 11:40 Wound Center Nurse 2 #8 [id number] CALF cluster -Time 12:32 11:40 -Correct Patient No Yes Yes -Correct Side, Site, Position No Yes Yes -Correct Procedure No Yes Yes -Procedure Performed No Yes Yes -Type of Procedure Debridement Debridement -Clinical Debridement Selective Subcutaneous -Post Debridement Size (cm) - Length 28.5 10.1 -Post Debridement Size (cm) - Width 7.2 26 -Post Debridement Size (cm) - Depth 0.3 0.1 -Total Square Cm 205.20 262.6 -Wound/Ulcer Outcome Not Healed Not Healed Not Healed -Ulcer Cleansing Rinsed/ Rinsed/ Irrigated with Irrigated with Saline Saline -Foul Odor after Cleansing No No -Bioengineered Tissue No No -Bleeding Controlled with Pressure Pressure -Other Amniofill in place... -Offloading No No No -Treatment Response Procedure Not Procedure Procedure Tolerated Well Tolerated Well Tolerated Well #4 L Lat ADRIEL cluster -Time 12:33 11:40 -Correct Patient No Yes Yes -Correct Side, Site, Position No Yes Yes -Correct Procedure No Yes Yes -Procedure Performed No Yes Yes -Type of Procedure Debridement Debridement -Clinical Debridement Subcutaneous Subcutaneous -Post Debridement Size (cm) - Length 18 13.5 -Post Debridement Size (cm) - Width 11.5 9.6 -Post Debridement Size (cm) - Depth 0.2 0.2 -Total Square Cm 207.0 129.60 -Wound/Ulcer Outcome Not Healed Not Healed Not Healed -Ulcer Cleansing Rinsed/ Rinsed/ Rinsed/ Irrigated with Irrigated with Irrigated with Saline Saline Saline -Foul Odor after Cleansing No No No -Bioengineered Tissue No No -Bleeding Controlled with Pressure Pressure Pressure -Other Amniofill in place. -Offloading No No No -Treatment Response Procedure Not Procedure Procedure Tolerated Well Tolerated Well Tolerated Well Pain Scale: 0-10 Numeric Is Patient Pain Free? Yes Yes Wound debrided: leg Laterality: Right Wound Grade/Stage: grade 1 Type of Debridement: Excisional debridement Anesthesia Used: 5% Lidocaine Gel Depth: in the subcutaneous layer Percentage of wound debrided: 100 Instrument Used: #15 blade Tissue Removed: fibrous, devitalized subcutaneous, biofilm, slough Severity: Fat Layer Exposed Amount of bleeding with debridement: Mild Bleeding Controlled with: Pressure Patient tolerated procedure well - Additional Wound Wound debrided: leg Laterality: Left Wound Grade/Stage: grade 1 Type of Debridement: Excisional debridement Anesthesia Used: 5% Lidocaine Gel Depth: in the subcutaneous layer Percentage of wound debrided: 100 Instrument Used: #15 blade Tissue Removed: fibrous, devitalized subcutaneous, biofilm, slough Severity: Fat Layer Exposed Amount of bleeding with debridement: Mild Bleeding Controlled with: Pressure Patient tolerated procedure: Patient tolerated procedure well Assessment/Plan Active Problems Delayed wound healing (Chronic) Lymphedema (Chronic) Morbid obesity (Chronic) Maceration of skin (Acute) Ulcer of left lower extremity with fat layer exposed (Chronic) Swelling of left lower extremity (Chronic) Swelling of right lower extremity (Chronic) Chronic ulcer of right leg with fat layer exposed (Chronic) Assessment: Right leg ulcer with fat layer exposed. Left leg ulcer with fat layer exposed. Concern for tinea or yeast infection to the right leg / maceration. 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 Venous insufficiency suspected lower extremities. Edema bilateral lower extremities. Diabetes with elevated hemoglobin A1c level. Parkinson's disease. Gait impairment. Obesity. Delayed healing. Malnutrition. Right and left leg pain Plan: I reviewed her case and ongoing treatment plan. Aquacel Ag was applied to all sites with multilayer additional secondary dressings to control drainage. She will resume advanced wound VAC application to the right leg, which will be applied tomorrow at the [facility]. To keep both of these leg dressings intact until Saturday which I recommend changing both of these dressings again. I recommend continuing the clotrimazole solution to the right leg there is some minor improvement. A wound culture was also obtained to see if there is a bacterial contamination component. I do also recommend daily cleansing with soap and warm water wash cloth. 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 To continue diuresis plan with her primary care physician. Her noninvasive vascular studies demonstrate calcification making this nonconclusive. She did follow-up with Dr. Kunz for this and no intervention is planned. Hardening of the arteries is noted however there is triphasic waveforms to bilateral ankle levels. Today, a multilayer later compression dressing was applied to the lower extremities. To keep legs elevated above heart while resting. To avoid lying directly on the wound while seated or in bed. To avoid idle standing or sitting for prolonged time. To monitor for signs of infection; she was reassured that this is not noted today. I recommend additional advanced wound care products in the operating room setting. Surgical nurse coordinator, Ras, will contact her to get this scheduled. An updated history and physical exam will be needed and this will be organized with her group home facility. To RTC (wound center) in 1 week with wound center or call sooner if she has questions or concerns. I answered all of her questions.
== END 2018-08-11 23:59 ==
LOC: WC 10:45
PROVIDERS: Family Provider Internal Medicine; PCP Internal Medicine; Visit Provider Podiatrist
DX: E11.622 Type 2 diabetes mellitus with other skin ulcer (principal); I87.2 Venous insufficiency (chronic) (peripheral); E11.42 Type 2 diabetes mellitus with diabetic polyneuropathy; I89.0 Lymphedema, not elsewhere classified; L97.822 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chronic ulcer of other part of left lower leg with fat layer exposed; L97.812 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chronic ulcer of other part of right lower leg with fat layer exposed; G20 Parkinson's disease; R32 Unspecified urinary incontinence; E66.01 Morbid (severe) obesity due to excess calories; Z71.3 Dietary counseling and surveillance
CPT/HCPCS: 11042; 11045; 87070; 87075; 87077; 87186; 87205; 97597; 97598; 99214; 99215; G0463

== ENCOUNTER 2018-08-13 13:44 | Emergency (ER) | payer MEDICARE, OTHER, SELFPAY ==
[2018-08-13] VITALS (11 sets, daily range): BP systolic 106–138; BP diastolic 48–80; PULSE 64–127; RESP 15–22; TEMP 36.6–36.9; O2SAT 6–100; BMI 37.8
--- NOTE | 2018-08-13 14:32 | NURSING ---
PATIENT WON'T BE ADMITTED
[2018-08-13 14:33] LABS: Absolute Lymphocyte Count 0.46 X10^3/ul (0.83-4.51); Absolute Neutrophil Count 3.9 X10^3/uL (2.0-7.7); Basophil# 0.02 X10^3/uL; Basophil% 0.4 % (0-1); Differential Indicated SCAN CRITERIA MET; Eosinophil# 0.07 X10^3/uL; Eosinophils% 1.4 % (0-5); Hematocrit 24.8 % (37-47); Hemoglobin 7.6 g/dl (12.0-15.0); Lymphocyte # 0.46 X10^3/ul (4.0); Lymphocyte % 9.5 % (19-41); Mean Corp Hgb Conc 30.6 g/gl (32-36); Mean Corpuscular Hgb 24.8 pg (27.0-32.0); Mean Corpuscular Volume 80.8 fL (81-99); Mean Platelet Vol. 7.3 fl (6.2-12.0); Monocyte% 8.2 % (0-10); Neutrophil # 3.89 X10^3/uL (2.7-7.7); Neutrophil % 80.3 % (47-70); POSITIVE COUNT NO; POSITIVE DIFFERENTIAL YES; POSITIVE MORPHOLOGY NO; Platelet Count 241 K/mm3 (150-450); RBC Distribution Width CV 16.3 % (11.6-14.6); RBC Distribution Width SD 48.3 fl (35.1-43.9); Red Blood Count 3.07 M/mm3 (4.2-5.4); White Blood Count 4.9 K/mm3 (4.4-11.0)
[2018-08-13 14:40] LABS: International Normalized Ratio 1.4; Partial Thromboplast Time 41.7 Seconds (24.1-36.2); Prothrombin Time (Protime)PT. 16.9 SECONDS (11.7-14.9)
[2018-08-13 14:45] LABS: Anion Gap 10 (5-15); BUN 14 mg/dL (7-18); BUN/Creat Ratio 22.1 RATIO (10-20); Calcium,Total 8.3 mg/dL (8.5-10.1); Chloride 101 mmol/L (98-107); Creatinine, Serum 0.63 mg/dL (0.55-1.02); EST Glomerular Filtration Rate 98 mL/min (>60); Est Glom Filt Rate - Afr Amer 119 mL/min (>60); Estimated Creatinine Clearance 38.94 ml/min; Glucose 86 mg/dL (74-106); Sodium Level 136 mmol/L (136-145)
--- NOTE | 2018-08-13 15:11 | ED.RN ---
BLOOD PRODUCT TEACHING COMPLETED WITH PT AND DAUGHTER. NEITHER DENY QUESTIONS. REVIEWED S/SX OF [facility]. CONSENT SIGNED BY PT, WITNESSED BY THIS NURSE
--- NOTE | 2018-08-13 15:17 | ED.VISSUMM ---
- ER Visit Summary Date of Service: 08/13/18 Chief Complaint: Abnormal labs History of Present Illness: The patient is a 72 F with low hemoglobin. The patient had a hemoglobin of 7.2 yesterday. She was sent from her nursing facility for transfusion. She is DNR [facility] only. Patient has skin ulcers to her shins. She gets dressing changes. She has occasional bleeding but no other bleeding. She is not on blood thinners. Physical Examination: Afebrile and vital signs unremarkable. Patient has ulcers to her bilateral shins, worse on the right side, dressed. Neurovascular intact distally. Heart regular. Lungs clear. Abdomen soft. Test Results: Hemoglobin 7.6. Metabolic panel and coags unremarkable. Emergency Department Course and Treatment: After discussion with the patient, 2 units of packed red cells were ordered. Will transfuse. I called the hospitalist to admit the patient. They asked that we transfuse the patient in the emergency department and then discharged back to her facility. Patient would also like this. Hospitalist also communicated with the patient's primary doctor. No further orders. Treatment Plan: As above Disposition: Discharge Impression: 1. Anemia 2. Transfusion of red cells This note was generated with [employer] dictation software. It may contain incorrect words, spelling, and punctuation that were not noted in review of the chart prior to signing ED Disposition - Plan for ED Patient: Chief Complaint: Abn Labs Referrals: Laney Horvath DO [Primary Care Provider] -
--- NOTE | 2018-08-13 15:20 | ED.DEP ---
ED Disposition - Plan for ED Patient: Chief Complaint: Abn Labs Instructions: ED Anemia Type Not Specified
--- NOTE | 2018-08-13 17:00 | ED.RN ---
PRBC'S UNIT #1 INITIATED WITHOUT S/SX OF TRANSFUSION RX. TRANSFUSION RATE INCREASED. CONTINUING TO MONITOR.
[2018-08-13] MEDS: oxyCODONE 5 MG Tablet 10 MG PO (18:05)
[2018-08-13] MEDS: Acetaminophen 325 MG Tablet 650 MG PO (18:06)
--- NOTE | 2018-08-13 20:55 | ED.RN ---
second unit prbc being flusehed with normal saline.pt gino without distress.
== END 2018-08-13 21:36 | disposition skilled nursing facility (03) ==
PROVIDERS: Emergency Provider Emergency Medicine; Family Provider Internal Medicine; PCP Internal Medicine
DX: D64.9 Anemia, unspecified (principal); E11.9 Type 2 diabetes mellitus without complications; I10 Essential (primary) hypertension; Z66 Do not resuscitate; L97.829 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chronic ulcer of other part of left lower leg with unspecified severity; L97.819 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chronic ulcer of other part of right lower leg with unspecified severity; Z86.19 Personal history of other infectious and parasitic diseases
CPT/HCPCS: 36430; 80048; 85025; 85610; 85730; 86850; 86900; 86920; 86922; 99285; J7040; P9016; A4216

== ENCOUNTER 2018-08-19 11:56 | Emergency (ER) | payer MEDICARE, OTHER, SELFPAY ==
[2018-08-13 13:45] VITALS: BMI 37.8
[2018-08-19 11:57] VITALS: BP 116/79; PULSE 96; RESP 18; TEMP 37.1; O2SAT 97; BMI 39.2
--- NOTE | 2018-08-19 12:10 | ED.RN ---
CONFUSION AND INTERMITTENT AUDITORY AND VISUAL HALLUCINATIONS.
--- NOTE | 2018-08-19 12:43 | EKG12_ITS ---
Test Reason : GEN ILLNESS Blood Pressure : / mmHG Vent. Rate : 083 BPM Atrial Rate : 083 BPM P-R Int : 174 ms QRS Dur : 092 ms QT Int : 378 ms P-R-T Axes : 026 002 006 degrees QTc Int : 444 ms Normal sinus rhythm Minimal voltage criteria for LVH, may be normal variant Borderline ECG Confirmed by SHAYY MCKENZIE, SRINATH ([id number]), sound editor ABBI BLANK ([id number]) on 08/25/2018 9:47:37 AM Referred By: MEGHA Confirmed By:SRINATH LUCAS MD
[2018-08-19] MEDS: 0.9% Normal Saline 1,000 ML 1000 ML IV (13:00)
--- NOTE | 2018-08-19 13:14 | RAD_ITS ---
STUDY: X-RAY CHEST REASON FOR EXAM: Female, 72 years old. Weakness. TECHNIQUE: Single AP portable upright view of the chest. COMPARISON: Portable AP upright chest x-ray June 14, 2018. FINDINGS: The lungs are clear and expanded. There is no demonstrated pleural abnormality. Normal size heart. Normal mediastinum and annalee. Normal visualized pulmonary arteries. There is atherosclerotic calcification of the aortic arch. There are stable multilevel degenerative changes of the visualized thoracic spine. 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 Rounded soft tissue fullness at the medial right cardiophrenic angle is consistent with a hiatal hernia. RAD/Chest 1 View (Portable) IMPRESSION: 1. No acute cardiopulmonary disease. 2. Small hiatal hernia noted. Electronically Signed: Max De La Cruz MD at 13:56 EST , Service support ,
[2018-08-19 13:28] LABS: Absolute Lymphocyte Count 0.66 X10^3/ul (0.83-4.51); Absolute Neutrophil Count 6.6 X10^3/uL (2.0-7.7); Basophil# 0.01 X10^3/uL; Basophil% 0.1 % (0-1); Eosinophil# 0.04 X10^3/uL; Eosinophils% 0.5 % (0-5); Hematocrit 28.4 % (37-47); Lymphocyte # 0.66 X10^3/ul (4.0); Lymphocyte % 8.4 % (19-41); Mean Corp Hgb Conc 31.7 g/gl (32-36); Mean Corpuscular Hgb 25.8 pg (27.0-32.0); Mean Corpuscular Volume 81.4 fL (81-99); Mean Platelet Vol. 8.3 fl (6.2-12.0); Monocyte# 0.49 X10^3/uL; Monocyte% 6.3 % (0-10); Neutrophil # 6.61 X10^3/uL (2.7-7.7); Neutrophil % 84.4 % (47-70); Platelet Count 264 K/mm3 (150-450); RBC Distribution Width CV 16.6 % (11.6-14.6); RBC Distribution Width SD 49.7 fl (35.1-43.9); Red Blood Count 3.49 M/mm3 (4.2-5.4); White Blood Count 7.8 K/mm3 (4.4-11.0)
[2018-08-19 13:29] LABS: POSITIVE COUNT NO; POSITIVE DIFFERENTIAL NO; POSITIVE MORPHOLOGY NO
[2018-08-19 13:34] LABS: Lactic Acid 1.1 mmol/L (0.4-2.0)
[2018-08-19 13:39] LABS: Anion Gap 10 (5-15); BUN 27 mg/dL (7-18); BUN/Creat Ratio 29.9 RATIO (10-20); Chloride 103 mmol/L (98-107); EST Glomerular Filtration Rate 65 mL/min (>60); Est Glom Filt Rate - Afr Amer 79 mL/min (>60); Estimated Creatinine Clearance 43.26 ml/min; Glucose 75 mg/dL (74-106); Potassium 4.5 mmol/L (3.5-5.1); Sodium Level 135 mmol/L (136-145)
[2018-08-19 14:00] VITALS: BP 150/138; PULSE 72; RESP 16
[2018-08-19 15:25] LABS: Bacteria 0 SEEN /hpf (None Seen); Mucous, Urine 0 SEEN /hpf (<or=2+); Red Blood Cells-Urine 0 SEEN /hpf (0-5); Squamous Epithelial Cells - UA 0 SEEN /hpf (5-10); White Blood Cells 0 SEEN /hpf (0-5)
[2018-08-19 15:31] LABS: Color, Urine Yellow (Yellow); Glucose, Dipstick Normal (Normal); Ketone-Dipstick 50 mg/dl (Negative); Leukocyte Esterase-Dipstick Negative /ul (Negative); Nitrite-Dipstick Negative (Negative); Occult Blood-Urine 25 /ul (Negative); Protein-Dipstick Negative (Negative); Urine Bilirubin Dipstick Negative (Negative); Urine Clarity Clear (Clear); Urine Urobilinogen Normal (Normal)
--- NOTE | 2018-08-19 16:29 | ED.VISSUMM ---
- ER Visit Summary Date of Service: 08/19/18 Chief Complaint: Generalized weakness History of Present Illness: The patient is a 72 F 3 of MRSA, anemia and chronic leg wounds. Patient was recently transfused 2 units of blood. Says he just has been feeling well she is had some intermittent. Potassium resolved. She denies any nausea, vomiting, diarrhea or dysuria. No fever. No headaches. No abdominal pain. No melena. Physical Examination: Vital signs are stable and afebrile. Pulse ox 97% on room air no signs of hypoxia. HEENT exam unremarkable atraumatic. Dry reactive light. No facial droop. Normal speech. Moist mucous memories. Neck nontender. No lymphadenopathy. No meningismus. Heart regular rhythm rate about 80 4/6 systolic ejection murmur. Lungs clear to auscultation bilaterally. Abdomen is soft and nontender. Normal bowel sounds no peritoneal signs. Patient is moving all 4 extremities. She has wraps on both lower extremities from where she is getting chronic wound care. There is equal symmetrical edema bilaterally. Neurologically she is awake and alert with no focal motor deficits. She knows day month and year. She knows she is in the hospital. She knows the president. Test Results: Chest x-ray shows chronic changes no acute process. Read both by myself and the radiologist. EKG sinus rhythm rate of 83 with no acute signs of CO or ischemia. There is LVH. Unchanged from prior EKG. CBC shows a normal white count of 7. Hemoglobin of 9. At her baseline chronic anemia. Electrolytes unremarkable gap of 10. Creatinine is 0.9. UA is normal. It was a cath specimen. Troponin normal. Lactic acid is 1.1. Blood cultures are pending. Emergency Department Course and Treatment: Patient treated with 1 L normal saline. Multiple repeat exam she is doing well. She was in the emergency department a lengthy period of time due to difficulty in obtaining a urine for analysis. Treatment Plan: Discharged home. Follow-up with your doctor. Disposition: Discharge Impression: Generalized weakness uncertain etiology. Chronic anemia This note was generated with [email or web address] dictation software. It may contain incorrect words, spelling, and punctuation that were not noted in review of the chart prior to signing ED Disposition - Plan for ED Patient: Chief Complaint: General Illness Referrals: Laney Horvath DO [Primary Care Provider] -
--- NOTE | 2018-08-19 16:34 | ED.DCSUM_ITS ---
- ER Visit Summary Date of Service: 08/19/18 Chief Complaint: Generalized weakness History of Present Illness: The patient is a 72 F 3 of MRSA, anemia and chronic leg wounds. Patient was recently transfused 2 units of blood. Says he just has been feeling well she is had some intermittent. Potassium resolved. She denies any nausea, vomiting, diarrhea or dysuria. No fever. No headaches. No abdominal pain. No melena. Physical Examination: Vital signs are stable and afebrile. Pulse ox 97% on room air no signs of hypoxia. HEENT exam unremarkable atraumatic. Dry reactive light. No facial droop. Normal speech. Moist mucous memories. Neck nontender. No lymphadenopathy. No meningismus. Heart regular rhythm rate about 80 4/6 systolic ejection murmur. Lungs clear to auscultation bilaterally. Abdomen is soft and nontender. Normal bowel sounds no peritoneal signs. Patient is moving all 4 extremities. She has wraps on both lower extremities from where she is getting chronic wound care. There is equal symmetrical edema bilaterally. Neurologically she is awake and alert with no focal motor deficits. She knows day month and year. She knows she is in the hospital. She knows the president. Test Results: Chest x-ray shows chronic changes no acute process. Read both by myself and the radiologist. EKG sinus rhythm rate of 83 with no acute signs of GA or ischemia. There is LVH. Unchanged from prior EKG. CBC shows a normal white count of 7. Hemoglobin of 9. At her baseline chronic anemia. Electrolytes unremarkable gap of 10. Creatinine is 0.9. UA is normal. It was a cath specimen. Troponin normal. Lactic acid is 1.1. Blood cultures are pending. Emergency Department Course and Treatment: Patient treated with 1 L normal saline. Multiple repeat exam she is doing well. She was in the emergency department a lengthy period of time due to difficulty in obtaining a urine for analysis. Treatment Plan: Discharged home. Follow-up with your doctor. Disposition: Discharge Impression: Generalized weakness uncertain etiology. Chronic anemia This note was generated with [employer] dictation software. It may contain incorrect words, spelling, and punctuation that were not noted in review of the chart prior to signing ED Disposition - Plan for ED Patient: Chief Complaint: General Illness Referrals: Laney Horvath DO [Primary Care Provider] -
--- NOTE | 2018-08-19 16:34 | ED.DEP ---
ED Disposition - Plan for ED Patient: Disposition: Home or Assisted Living Chief Complaint: General Illness Referrals: Laney Horvath DO [Primary Care Provider] - 3-5 Days if not improving Additional Instructions: Plenty of fluids and rest. Follow-up with your doctor if not improving. Return if feeling worse.
[2018-08-19 16:41] VITALS: BP 116/44; PULSE 78; RESP 18; O2SAT 99
== END 2018-08-19 18:07 | disposition home or self-care (01) ==
PROVIDERS: Emergency Provider Emergency Medicine; Family Provider Internal Medicine; PCP Internal Medicine
DX: R53.1 Weakness (principal); D64.9 Anemia, unspecified; Z86.14 Personal history of Methicillin resistant Staphylococcus aureus infection
CPT/HCPCS: 36415; 71045; 80048; 81001; 83605; 84484; 85025; 87040; 93005; 96360; 99285; P9612; A4216

== ENCOUNTER 2018-08-27 08:15 | Outpatient (RCR) | payer SELFPAY ==
[2018-08-12 00:15] VITALS: BP 71/42; PULSE 67; RESP 18; TEMP 36.1
[2018-08-27 10:46] VITALS: BP 90/40; PULSE 70; RESP 16; TEMP 34.9; BMI 39.2
--- NOTE | 2018-08-27 12:59 | PN.PCM_ITS ---
(1) Chronic ulcer of right leg with fat layer exposed Status: Chronic Current Visit: Yes Code(s): L97.912 - 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chronic ulcer of unspecified part of right lower leg with fat layer exposed (2) Ulcer of left lower extremity with fat layer exposed Status: Chronic Current Visit: Yes Code(s): L97.922 - 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chronic ulcer of unspecified part of left lower leg with fat layer exposed (3) Delayed wound healing Status: Chronic Current Visit: Yes Code(s): T14.8XXD - Other injury of unspecified body region, subsequent encounter (4) Swelling of left lower extremity Status: Chronic Current Visit: Yes Code(s): M79.89 - Other specified soft tissue disorders (5) Swelling of right lower extremity Status: Chronic Current Visit: Yes Code(s): M79.89 - Other specified soft tissue disorders (6) Type 2 diabetes mellitus with diabetic polyneuropathy Status: Chronic Current Visit: Yes Code(s): E11.42 - Type 2 diabetes mellitus with diabetic polyneuropathy Type of Wound Chief Complaint: Bilateral lower extremity swelling, edema, and lymphedema; chronic venous insufficiency; bilateral calf ulcerations. History of Wound: This is a 72-year-old female with a long-standing history of chronic swelling, edema, and lymphedema in her lower extremities. She tries to elevate her legs more. She suffers from Parkinson's disease. She resides at the [facility]. She denies fever, chill, nausea, vomiting. I have been in communication with the [facility] staff who is concerned about her recent altered mental status. She has been worked up for this on several occasions and has been stabilized and sent home. She would like to proceed with surgical intervention if it is safe at this time. Her discomfort to the back of her right leg has also significantly improved after she completed oral antibiotics and topical clotrimazole solution. Her leg edema is decreased. She is with her daughter today. Progress of Wound: Improving bilateral leg ulcers - Physical Exam Vital Signs Temp Pulse Resp BP 94.8 F L 70 16 90/40 L 08/27/18 10:46 08/27/18 10:46 08/27/18 10:46 08/27/18 10:46 General: Alert, Oriented x3, Cooperative Extremities: No cyanosis, Capillary Refill Less than 3 Seconds, No Calf Tenderness - Negative Cassie and Benitez sign bilateral, Diminished Peripheral Pulses, Edema - Continue to bilateral lower extremities however significant reduction is noted, Tenderness - Pain with ulcer manipulation bilateral lower extremities. There is no new open ulcer site to the posterior proximal right leg with granulation tissue that is healthy and granular. Skin: Ulcer/ Wound - No purulence, erythema, streaking, odor, or infection. The right leg ulcer site is healthy beefy red granulation tissue. The left leg ulcer site is pale granular and fibrous Wound Measurements and Assessment WC - Nurse 1 - General Ulcer Measurement Start: 08/27/18 10:46 Freq: Status: Active Protocol: Activity Type Activity Date Activity User E-Sign Co-Sign Detail Recorded Client Recorded Date Recorded By Document 08/27/18 10:46 [facility] [id number] 08/27/18 11:01 [facility] 08/27/18 10:46 Wound Center Nurse 1 [Ulcer Assessment] #8 [id number] CALF cluster -Combined with other wound No -Current Size (cm) - Length 8.5 -Current Size (cm) - Width 25 -Current Size (cm) - Depth 0 -Total Square Cm 212.5 -Date of Last Picture (Recall this 08/27/18 field) -Photo Taken Yes -Epithelialization Small 1-33% -Tunneling No -Undermining/Tunneling No -Circular Undermining No -Exudate Amt Medium -Exudate Type Serosanguineous -Wound Margin Flat & Intact -Granulation Amt Large (67-100%) -Granulation Quality Red -Slough/Fibrin No -Necrosis Amt None Present (0 %) -Texture (Vickie-wound Skin Appearance) Assessed Scarring -Moisture (Vickie-wound Skin Appearance Assessed ) Dry/Scaly -Color (Vickie-wound Skin Appearance) Assessed Hemosiderin Staining -Temperature (Vickie-wound Skin No Abnormality Appearance) (Pt Warm) -Tenderness on Palpation (Vickie-wound Yes Skin Appearance) -Ulcer Cleansing Wound Cleanser -Foul Odor after Cleansing No -Anesthetic Used 4% Lidocaine Solution #4 L Lat LE cluster -Combined with other wound No -Current Size (cm) - Length 12 -Current Size (cm) - Width 5.2 -Current Size (cm) - Depth 0.1 -Total Square Cm 62.4 -Date of Last Picture (Recall this 08/27/18 field) -Photo Taken Yes -Tunneling No -Undermining/Tunneling No -Circular Undermining No -Exudate Amt Medium -Exudate Type Serosanguineous -Wound Margin Flat & Intact -Granulation Amt Medium (34-66%) -Granulation Quality Red -Slough/Fibrin Yes -Necrosis Amt Medium (34-66%) -Necrotic Tissue Type Adherent Slough -Texture (Vickie-wound Skin Appearance) Assessed Scarring -Moisture (Vickie-wound Skin Appearance Assessed ) Dry/Scaly -Color (Vickie-wound Skin Appearance) Assessed Hemosiderin Staining -Temperature (Vickie-wound Skin No Abnormality Appearance) (Pt Warm) -Tenderness on Palpation (Vickie-wound No Skin Appearance) -Ulcer Cleansing Wound Cleanser -Foul Odor after Cleansing No -Anesthetic Used 4% Lidocaine Solution [Edema Assessment] -Lower Limb Edema Present Yes -Right Calf (cm) 45 -Right Ankle (cm) 24.7 -Left Calf (cm) 37.5 -Left Ankle (cm) 23.5 Musculoskeletal: No Tenderness to Palpation of Joints or Extremities, Muscle Wasting Neurological: Sensory exam intact to light touch and pain, - Psych/Mental Status: Normal Affect, Appropriate Debridement Note Wound debrided: No debridement was completed today Assessment/Plan Active Problems Delayed wound healing (Chronic) Ulcer of left lower extremity with fat layer exposed (Chronic) Swelling of left lower extremity (Chronic) Swelling of right lower extremity (Chronic) Type 2 diabetes mellitus with diabetic polyneuropathy (Chronic) Chronic ulcer of right leg with fat layer exposed (Chronic) Assessment: Right leg ulcer with fat layer exposed. Left leg ulcer with fat layer exposed. New ulcer right posterior proximal leg fat layer exposed. Resolved cellulitis right lower extremity. 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 Venous insufficiency suspected lower extremities. Edema bilateral lower extremities. Diabetes with elevated hemoglobin A1c level. Parkinson's disease. Gait impairment. Obesity. Delayed healing. Malnutrition. Right and left leg pain Plan: I reviewed her case and ongoing treatment plan. Aquacel Ag was applied to all sites with multilayer additional secondary dressings to control drainage. She will resume advanced wound VAC application to the right leg, which will be applied on Saturday after surgery. She is completed oral antibiotics and topical clotrimazole application to the right posterior leg and this is noted. I reviewed her previous venous Doppler test with reflux examination which does d emonstrate some incompetent veins particularly on the left lower extremity. To continue diuresis plan with her primary care physician. Her noninvasive vascular studies demonstrate calcification making this nonconclusive. She did follow-up with Dr. Kunz for this and no intervention is planned. Hardening of the arteries is noted however there is triphasic waveforms to bilateral ankle levels. Today, a multilayer later compression dressing was applied to the lower extremities. To keep legs elevated above heart while resting. To avoid lying directly on the wound while seated or in bed. To avoid idle standing or sitting for prolonged time. To monitor for signs of infection; she was reassured that this is not noted today. I recommend additional advanced wound care products in the operating room setting. she is tentatively scheduled for Saturday. The consents will be signed for subcutaneous debridement of bilateral lower extremities with application of advanced wound care product, amnio fill, and application of bilateral leg wound vacs. The preoperative indications, planned procedure, possible benefits, risks, complications, and anticipated healing time management were discussed in detail. No guarantees were made. She understands and elects to proceed at this time. She understands risks and complications may include but not limited following: Swelling, pain, scarring, delayed or nonhealing, infection, allergic reaction, blood clot, need for further surgery, loss of limb, function, life. Answered all her questions. Her recent mental deterioration [facility] however this is not appreciated today in clinic. I do recommend proceeding forward with the Saturday surgery unless she is not clear by her medical provider; I will confirm this. To RTC (wound center) in 1 week with wound center or call sooner if she has questions or concerns. I answered all of her questions.
== END 2018-09-11 23:59 ==
LOC: WC 08:15
PROVIDERS: Family Provider Internal Medicine; PCP Internal Medicine; Visit Provider Podiatrist
DX: Z09 Encounter for follow-up examination after completed treatment for conditions other than malignant neoplasm (principal); I87.2 Venous insufficiency (chronic) (peripheral); E11.42 Type 2 diabetes mellitus with diabetic polyneuropathy; I89.0 Lymphedema, not elsewhere classified; E66.9 Obesity, unspecified
CPT/HCPCS: 99214; G0463

== ENCOUNTER 2018-09-01 20:12 | Emergency (ER) | payer MEDICARE, OTHER, SELFPAY ==
[2018-09-01 20:13] VITALS: BP 165/73; PULSE 66; RESP 20; TEMP 36.6; O2SAT 100; BMI 38.6
--- NOTE | 2018-09-01 20:42 | CT_ITS ---
STUDY: CT ABDOMEN AND PELVIS WITHOUT CONTRAST REASON FOR EXAM: Female, 72 years old. Left-sided flank pain. RADIATION DOSAGE (If Supplied By Facility): CTDIvol = ( 23.77 ) mGy, DLP = ( 1051.06 ) mGycm TECHNIQUE: Transaxial images were obtained from the dome of the diaphragm to the symphysis pubis without oral contrast, and without intravenous contrast. Sagittal and coronal images were reconstructed. Individualized dose optimization techniques were used for this CT. COMPARISON: None. FINDINGS: There is bilateral basilar dependent atelectasis. There may be some calcification of the mitral annulus. The visualized portions of the heart are within normal limits. Normal liver. Normal gallbladder and extrahepatic biliary system. Normal spleen. There is diffuse atrophy of the pancreas. The right adrenal gland is not visualized. There appears to be diffuse enlargement of the left adrenal gland possibly related to hyperplasia. There are calcifications within the left adrenal gland. Normal right kidney. Normal left kidney. There is a large hiatal hernia composed mostly of the fundus of the stomach. There is no evidence for dilated bowel, ascites or pneumoperitoneum. The small bowel has a grossly normal appearance. Stool is visible throughout the colon with scattered colonic diverticula. The cecum is located in the central abdomen suggesting possible mobility. The appendix is visualized and appears normal. There is patchy atherosclerotic calcification of the abdominal aorta with elongation and tortuosity, but without a demonstrated aneurysm. Normal inferior vena cava. Normal retroperitoneum. Normal urinary bladder. Normal visualized uterus. There is a small umbilical hernia containing fat. There are diffuse degenerative changes of the visualized spine. The bones appear osteopenic. There is mild curvature of the lumbar spine with convexity towards the right. There is grade 1 spondylolisthesis at L4-5. There is moderately severe multilevel degenerative arthropathy with facet joints of the lumbar spine. There is an exaggerated lumbar lordosis. CT/Abdomen/Pelvis without Cont IMPRESSION: 1. No CT evidence of acute intra-abdominal disease. 2. Large amount of stool suggesting possible fecal stasis. 3. Hiatal hernia. 4. Left-sided inguinal lymphadenopathy. Electronically Signed: Lauren Gifford MD at 21:36 EST , Service support ,
--- NOTE | 2018-09-01 20:42 | EKG12_ITS ---
Test Reason : CP Blood Pressure : / mmHG Vent. Rate : 064 BPM Atrial Rate : 064 BPM P-R Int : 182 ms QRS Dur : 092 ms QT Int : 422 ms P-R-T Axes : 053 -01 036 degrees QTc Int : 435 ms Normal sinus rhythm Normal ECG Confirmed by APARNA MCKENZIE, JUAN DANIEL ([id number]), online content editor ABBI BLANK ([id number]) on 09/03/2018 1:39:12 PM Referred By: MINA/ROSA Confirmed By:JUAN DANIEL BRAUN MD
[2018-09-01] MEDS: Morphine 4 MG/ML Syringe IV (20:50)
[2018-09-01] MEDS: Ondansetron 4 MG/2 ML Vial IV (20:50)
[2018-09-01] MEDS: 0.9% Normal Saline 1,000 ML 150 ML IV (20:51)
[2018-09-01 20:58] LABS: Absolute Lymphocyte Count 0.68 X10^3/ul (0.83-4.51); Absolute Neutrophil Count 9.2 X10^3/uL (2.0-7.7); Basophil# 0.01 X10^3/uL; Basophil% 0.1 % (0-1); Eosinophil# 0.03 X10^3/uL; Eosinophils% 0.3 % (0-5); Hematocrit 32.7 % (37-47); Hemoglobin 10.1 g/dl (12.0-15.0); Lymphocyte # 0.68 X10^3/ul (4.0); Lymphocyte % 6.4 % (19-41); Mean Corp Hgb Conc 30.9 g/gl (32-36); Mean Corpuscular Hgb 25.1 pg (27.0-32.0); Mean Corpuscular Volume 81.3 fL (81-99); Mean Platelet Vol. 8.2 fl (6.2-12.0); Monocyte# 0.62 X10^3/uL; Monocyte% 5.9 % (0-10); Neutrophil # 9.18 X10^3/uL (2.7-7.7); Neutrophil % 86.9 % (47-70); Platelet Count 239 K/mm3 (150-450); RBC Distribution Width CV 17.1 % (11.6-14.6); RBC Distribution Width SD 51.2 fl (35.1-43.9); Red Blood Count 4.02 M/mm3 (4.2-5.4); White Blood Count 10.6 K/mm3 (4.4-11.0)
[2018-09-01 21:00] LABS: POSITIVE COUNT NO; POSITIVE DIFFERENTIAL NO; POSITIVE MORPHOLOGY NO
[2018-09-01 21:09] LABS: Anion Gap 11 (5-15); BUN 17 mg/dL (7-18); BUN/Creat Ratio 19.1 RATIO (10-20); Calcium,Total 7.6 mg/dL (8.5-10.1); Chloride 100 mmol/L (98-107); Creatinine, Serum 0.89 mg/dL (0.55-1.02); EST Glomerular Filtration Rate 67 mL/min (>60); Est Glom Filt Rate - Afr Amer 80 mL/min (>60); Estimated Creatinine Clearance 43.75 ml/min; Glucose 150 mg/dL (74-106); Potassium 3.7 mmol/L (3.5-5.1); Sodium Level 135 mmol/L (136-145)
--- NOTE | 2018-09-01 21:33 | ED.RN ---
PT REFUSES STRAIGHT CATH FOR STERILE URINE SAMPLE, IS INCONTINENT AND UNABLE TO SUPPLY CLEAN CATCH SAMPLE. DAUGHTER STATES PT HAS PROLAPSE SOMEWHERE DOWN THERE, ECF HAS BEEN UNSUCCESSFUL WITH INSERTING CATHETER. ALSO STATES PT HAS BEEN IN THIS ED WITH UNSUCCESSFUL ATTEMPTS AT CATHETER INSERTION. AWARE.
--- NOTE | 2018-09-01 21:35 | RAD_ITS ---
STUDY: X-RAY CHEST REASON FOR EXAM: Female, 72 years old. Cough. TECHNIQUE: Single AP portable view of the chest. COMPARISON: August 19, 2018. FINDINGS: Cardiac monitoring leads are present. The lungs are expanded. There is mild interstitial thickening present particularly at the lung bases. This is unchanged since the previous study and may represent pulmonary fibrosis. There is increased lucency at the right lung apex possibly related to emphysema. There is no demonstrated pleural abnormality. There is mild cardiac enlargement. Normal annalee. Normal visualized pulmonary arteries. There is atherosclerotic calcification of the aortic arch with tortuosity. There is demineralization of the osseous structures. There is decreased bilateral acromiohumeral distances suggesting sequela chronic rotator cuff tears. There are degenerative changes of both shoulders. There is a middle mediastinal mass like process probably representing a hiatal hernia. RAD/Chest 1 View (Portable) IMPRESSION: 1. Unchanged appearance of the chest. 2. Hiatal hernia. Electronically Signed: Lauren Gifford MD at 22:24 EST , Service support ,
[2018-09-01 22:00] VITALS: BP 148/69; PULSE 79; RESP 19; O2SAT 97
--- NOTE | 2018-09-01 22:23 | ED.VISSUMM ---
- ER Visit Summary Date of Service: 09/01/18 Chief Complaint: Left flank pain History of Present Illness: The patient is a 72 F who presents to the ECF with left lateral abdominal pain that started around 5:30 PM this evening. It is now wrapping around to her anterior abdomen. She has had recent URI symptoms with cough. She has chronic leg wounds and is scheduled for wound debridement and VAC application tomorrow. She had been given oxycodone earlier in the afternoon for her legs. Physical Examination: Blood pressure is 165/73, otherwise unremarkable. Patient's lying in bed. She appears uncomfortable but no acute distress. Head neck examination unremarkable. Heart is regular rate and rhythm. Lung sounds grossly clear. Abdomen is soft with tenderness over the left lateral abdominal wall. No guarding or rebound. Hypoactive bowel sounds are present. Dressings are in place on both legs. Test Results: EKG is sinus at 64 with no sign of acute ischemia. CBC was normal white count but left shift is noted with 87% neutrophils. Hemoglobin is 10.1 which is improved when compared to labs from 3 days ago. Chemistry studies significant for glucose of 150. Troponin is less than 0.015. CT flank shows no acute disease. There is a large amount of stool suggesting possible fecal stasis. Hiatal hernia is noted. Left inguinal lymphadenopathy is noted. Emergency Department Course and Treatment: Patient received morphine, Zofran, and IV fluids. Attempt was made for urinalysis, but patient refused straight cath and she is chronically incontinent. Pure wick was placed we have not collected a sample at this time. At this point patient wishes just to send a urine sample over tomorrow. She will be discharged back to her ECF with an order for outpatient urinalysis. Treatment Plan: [] Disposition: Discharge Impression: 1. Left flank pain 2. Constipation 3. Chronic leg wounds This note was generated with [employer] dictation software. It may contain incorrect words, spelling, and punctuation that were not noted in review of the chart prior to signing ED Disposition - Plan for ED Patient: Chief Complaint: Flank Pain Referrals: Laney Horvath DO [Primary Care Provider] -
--- NOTE | 2018-09-01 22:28 | ED.DCSUM_ITS ---
- ER Visit Summary Date of Service: 09/01/18 Chief Complaint: Left flank pain History of Present Illness: The patient is a 72 F who presents to the ECF with left lateral abdominal pain that started around 5:30 PM this evening. It is now wrapping around to her anterior abdomen. She has had recent URI symptoms with cough. She has chronic leg wounds and is scheduled for wound debridement and VAC application tomorrow. She had been given oxycodone earlier in the afternoon for her legs. Physical Examination: Blood pressure is 165/73, otherwise unremarkable. Patient's lying in bed. She appears uncomfortable but no acute distress. Head neck examination unremarkable. Heart is regular rate and rhythm. Lung sounds grossly clear. Abdomen is soft with tenderness over the left lateral abdominal wall. No guarding or rebound. Hypoactive bowel sounds are present. Dressings are in place on both legs. Test Results: EKG is sinus at 64 with no sign of acute ischemia. CBC was normal white count but left shift is noted with 87% neutrophils. Hemoglobin is 10.1 w hich is improved when compared to labs from 3 days ago. Chemistry studies significant for glucose of 150. Troponin is less than 0.015. CT flank shows no acute disease. There is a large amount of stool suggesting possible fecal stasis. Hiatal hernia is noted. Left inguinal lymphadenopathy is noted. Emergency Department Course and Treatment: Patient received morphine, Zofran, and IV fluids. Attempt was made for urinalysis, but patient refused straight cath and she is chronically incontinent. Pure wick was placed we have not collected a sample at this time. At this point patient wishes just to send a urine sample over tomorrow. She will be discharged back to her ECF with an order for outpatient urinalysis. Treatment Plan: [] Disposition: Discharge Impression: 1. Left flank pain 2. Constipation 3. Chronic leg wounds This note was generated with [employer] dictation software. It may contain incorrect words, spelling, and punctuation that were not noted in review of the chart prior to signing ED Disposition - Plan for ED Patient: Chief Complaint: Flank Pain Referrals: Laney Horvath DO [Primary Care Provider] -
--- NOTE | 2018-09-01 22:35 | ED.RN ---
PT CONTINUES TO REFUSE STRAIGHT CATH, PUREWICK PLACED IN ATTEMPTS TO OBTAIN URINE FOR UA PER MD.
[2018-09-01 22:37] VITALS: BP 133/75; PULSE 69; RESP 22; O2SAT 96
--- NOTE | 2018-09-01 23:34 | ED.DEP ---
ED Disposition - Plan for ED Patient: Disposition: Home or Assisted Living Chief Complaint: Flank Pain Instructions: ED Flank Pain Uncertain Cause, ED Constipation Referrals: Laney Horvath DO [Primary Care Provider] - Nick Gonsalez MD [STAFF PHYSICIAN] -
[2018-09-02 00:19] VITALS: BP 146/87; PULSE 87; RESP 20; O2SAT 96
--- NOTE | 2018-09-02 00:19 | ED.RN ---
PT AND FAMILY EDUCATED ON DISCHARGE INSTRUCTIONS. THIS RN CALLED F FACILITY AND SPOKE WITH THE NURSE CARING FOR THE PATIENT. PT WITH CONSTIPATION AND IS TO RECEIVE SUPPOSITORY FROM [facility] NURSE UPON ARRIVAL BACK TO [facility] PER DR. ENRIQUEZ. PT IV D/C AND COVERED WITH 2X2 GAUZE DRESSING AND PAPER TAPE. PT VOICES NO QUESTIONS. PT AWAITING TRANSPORT CREW. PT ALSO SENT WITH OUTPATIENT ORDER FOR OUTPATIENT URINE SPECIMEN.
--- OUTSIDE RECORDS SUMMARY | 2018-11-04 05:34 | XMS RPT_ITS ---
:1945 Author Organization OHIP Support Name Relationship Address Phone R Unavailable Unavailable Unavailable BUCHANAN, NNAMDI Unavailable [address] + [place] [address] R Unavailable Unavailable Unavailable BUCHANAN, NNAMDI Unavailable [address] + [place] [address] R Unavailable Unavailable Unavailable BUCHANAN, NNAMDI Unavailable [address] + [place] [address] R Unavailable Unavailable Unavailable BUCHANAN, NNAMDI Unavailable [address] + [place] [address] R Unavailable Unavailable Unavailable BUCHANAN, NNAMDI Unavailable [address] + [place] [address] R Unavailable Unavailable Unavailable BUCHANAN, NNAMDI Unavailable [address] + [place] [address] R Unavailable Unavailable Unavailable Buchanan, Nnamdi Unavailable [...] Buchanan, Nnamdi Unavailable Unavailable + [place] [address] R Unavailable Unavailable Unavailable BUCHANAN, NNAMDI Unavailable Unavailable + [place] [address] R Unavailable Unavailable Unavailable Buchanan, Nnamdi Unavailable Unavailable + [place] [address] R Unavailable Unavailable Unavailable BUCHANAN, NNAMDI Unavailable Unavailable + [place] [address] R Unavailable Unavailable Unavailable BUCHANAN, NNAMDI Unavailable Unavailable + [place] [address] R Unavailable Unavailable Unavailable BUCHANAN, NNAMDI Unavailable Unavailable + [place] [address] R Unavailable Unavailable Unavailable Buchanan, Nnamdi Unavailable Unavailable + BUCHANAN, NNAMDI Unavailable Unavailable + [place] [address] S Unavailable Unavailable Unavailable BUCHANAN, NNAMDI Unavailable [address] + [place] [address] S Unavailable Unavailable Unavailable BUCHANAN, NNAMDI Unavailable [address] + [place] [address] S Unavailable Unavailable Unavailable BUCHANAN, NNAMDI Unavailable [address] + [place] [address] S Unavailable Unavailable Unavailable BUCHANAN, NNAMDI Unavailable [address] + [place] [address] S Unavailable Unavailable Unavailable BUCHANAN, NNAMDI Unavailable [address] + [place] [address] S Unavailable Unavailable Unavailable BUCHANAN, NNAMDI Unavailable [address] + [place] [address] S Unavailable Unavailable Unavailable BUCHANAN, NNAMDI Unavailable [address] + [place] [address] S Unavailable Unavailable Unavailable BUCHANAN, NNAMDI Unavailable [address] + [place] [address] S Unavailable Unavailable Unavailable BUCHANAN, NNAMID Unavailable [address] + [place] [address] S Unavailable Unavailable Unavailable BUCHANAN, NNAMDI Unavailable [address] + [place] [address] S Unavailable Unavailable Unavailable Care Team Providers Name Role Phone Arpita Interiano Attending Unavailable Yuliet, Laney Primary Care Unavailable Wallace, Nick Attending Unavailable Yuliet, Laney Primary Care Unavailable Ruben Escamilla Attending Unavailable Hans Blank Attending Unavailable Yuliet, Laney Primary Care Unavailable Aly Felder Attending Unavailable Gonsalez, Nick Attending Unavailable Fascione, Arpita Attending Unavailable Yuliet, Laney Primary Care Unavailable Fascione, Arpita Attending Unavailable Yuliet, Laney Primary Care Unavailable Fascione, Arpita Attending Unavailable Yuliet, Laney Primary Care Unavailable Wallace, Nick Attending Unavailable Gonsalez, Nick Attending Unavailable Gonsalez, Nick Attending Unavailable Gonsalez, Nick Attending Unavailable Yuliet, Laney Primary Care Unavailable Cortney Leal Attending Unavailable Gonsalez, Nick Consulting Unavailable Fascione, Arpita Attending Unavailable Yuliet, Laney [...] Primary Care Unavailable Fascione, Arpita Attending Unavailable FascioneArpita Referring Unavailable Yuliet, Laney Primary Care Unavailable Fascione, Arpita Attending Unavailable Yuliet, Laney Primary Care Unavailable Yuliet, Laney Primary Care Unavailable Kotsonis, Rolando F Admitting Unavailable Koram, Meenu Fozia Attending Unavailable Fascione Arpita Consulting Unavailable Kotsonis, Rolando F Admitting Unavailable Yuliet, Laney Primary Care Unavailable Kotsonis, Rolando F Consulting Unavailable Kotsonis, Rolando F Attending Unavailable Kotsonis, Rolando F Admitting Unavailable Paintsil, [place] Attending Unavailable Yuliet, Laney Primary Care Unavailable Paintsil, [place] Consulting Unavailable Kotsonis, Rolando F Admitting Unavailable Koram, Meenu Fozia Attending Unavailable Yuliet, Laney Primary Care Unavailable Koram, Meenu Fozia Consulting Unavailable Rolando Zuniga Admitting Unavailable Koram, Meenu Fozia Attending Unavailable Laney Horvath Primary Care Unavailable Koram, Meenu Fozia Consulting Unavailable Wallaec, Nick Attending Unavailable Gonsalez, Nick Attending Unavailable Gonsalez, Nick Attending Unavailable Gonsalez, Nick Attending Unavailable Cebuaileen, Oscar Attending Unavailable Koram, Meenu Fozia Referring Unavailable PROBLEMS PROBLEMS DATE TYPE CONDITION / CODE ATTENDING STATUS SOURCE 09/03/2018 Unknown 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, 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 [facility] with other skin Hospital ulcer / Repository E11.622(ICD-10) 07/08/2018 Unknown L97.922 - Fascione, Active [place] 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[facility] chronic ulcer of Hospital unspecified part Repository of left lower leg with fat layer exposed / L97.922(ICD-10) 06/17/2018 Unknown L97.919 - Koram, Meenu Fozia Active [place] 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[facility] chronic ulcer of Hospital unspecified part Repository of right lower leg with unspecified severity / L97.919(ICD-10) 07/15/2018 Unknown M79.622 - Pain in CebuOscar gallagher Active [place] left upper arm / Community M79.622(ICD-10) Hospital Repository 02/09/2018 Unknown L97.929 - Fascione, Active [place] 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[facility] chronic ulcer of Hospital unspecified part Repository of left lower leg with unspecified severity / L97.929(ICD-10) PROCEDURES PROCEDURES No Procedure Records FoundRESULTS RESULTS 12 LEAD ELECTROCARDIOGRAM Observed: 09/03/2018 Status: F Source: [place] 1:39 PM [facility] REPOSITORY [facility] Cardiovascular Services [address] [place] [address] 12 Lead EKG 09/01/182036 MR#: [id number] Acct: [id number] Name: MARIA G DILLON Rep #: [id number] : 1945 72 From: Nick Braun MD Attending Dr: Status: DEP ER Ordering Dr: Cortney Leal MD Date: 09/01/18 Location: ED Sex: F C Admitted: Test Reason : CP Blood Pressure : / mmHG Vent. Rate : 064 BPM Atrial Rate : 064 BPM P-R Int : 182 ms QRS Dur : 092 ms QT Int : 422 ms P-R-T Axes : 053 -01 036 degrees QTc Int : 435 ms Normal sinus rhythm Normal ECG Confirmed by APARNA MCKENZIE, NICK ([id number]), editor greeting card ABBI BLANK ([id number]) on 09/03/2018 1:39:12 PM Referred By: MINA/ROSA Confirmed By:NICK BRAUN MD 09/03/18 1339 Date Nick Braun MD CC: Cortney Leal MD; Laney Horvath DO Signed EMERGENCY DEPARTMENT Observed: 09/02/2018 Status: F Source: [place] SUMMARY 12:01 AM [facility] Medical Records Department [address] [place] [address] Emergency Department Summary 09/01/18 2223 MR#: [id number] Acct: [id number] Name: MARIA G DILLON Rep #: [id number] : 1945 72 From: Cortney Leal MD PCP: Laney Horvath DO Status: REG ER - ER Visit Summary Date of Service: 09/01/18 Chief Complaint: Left flank pain History of Present Illness: The patient is a 72 F who presents to the [facility] with left lateral abdominal pain that started around 5:30 PM this evening. It is now wrapping around to her anterior abdomen. She has had recent URI symptoms with cough. She has chronic leg wounds and is scheduled for wound debridement and VAC application tomorrow. She had been given oxycodone earlier in the afternoon for her legs. Physical Examination: Blood pressure is 165/73, otherwise unremarkable. Patient's lying in bed. She appears uncomfortable but no acute distress. Head neck examination unremarkable. Heart is regular rate and rhythm. Lung sounds grossly clear. Abdomen is soft with tenderness over the left lateral abdominal wall. No guarding or rebound. Hypoactive bowel sounds are present. Dressings are in place on both legs. Test Results: EKG is sinus at 64 with no sign of acute ischemia. CBC was normal white count but left shift is noted with 87% neutrophils. Hemoglobin is 10.1 which is improved when compared to labs from 3 days ago. Chemistry studies significant for glucose of 150. Troponin is less than 0.015. CT flank shows no acute disease. There is a large amount of stool suggesting possible fecal stasis. Hiatal hernia is noted. Left inguinal lymphadenopathy is noted. Emergency Department Course and Treatment: Patient received morphine, Zofran, and IV fluids. Attempt was made for urinalysis, but patient refused straight cath and she is chronically incontinent. Pure wick was placed we have not collected a sample at this time. At this point patient wishes just to send a urine sample over tomorrow. She will be discharged back to her ECF with an order for outpatient urinalysis. Treatment Plan: [] Disposition: Discharge Impression: 1. Left flank pain 2. Constipation 3. Chronic leg wounds This note was generated with Mine[employer] dictation software. It may contain incorrect words, spelling, and punctuation that were not noted in review of the chart prior to signing ED Disposition - Plan for ED Patient: Chief Complaint: Flank Pain Referrals: Laney Horvath, [Primary Care Provider] - What to do if you have Problems For any increased pain, shortness of breath, bleeding, nausea or vomiting, chest pain, or any unexpected problems, contact your Primary Care Provider. Call [facility] [employer] [facility] ([phone]) or report to the closest Emergency Room. Call 911 if necessary. 09/02/18 0001 <Electronically signed by Cortney Leal MD> Date Cortney Leal MD Cosigner Signature (If Indicated): Date CC: Laney Horvath DO DISCHARGE INSTRUCTION Observed: 09/01/2018 Status: F Source: [place] 11:35 PM REPOSITORY [facility] Medical Records Department [address] [place] [address] Discharge Instruction 09/01/18 2334 MR#: [id number] Acct: [id number] Name: MARIA G DILLON Rep #: [id number] : 1945 72 From: Cortney Leal MD PCP: Laney Horvath DO Status: REG ER ED Disposition - Plan for ED Patient: Disposition: Home or Assisted Living Chief Complaint: Flank Pain Instructions: ED Flank Pain Uncertain Cause, ED Constipation Referrals: Laney Horvath DO [Primary Care Provider] - Nick Gonsalez MD [STAFF PHYSICIAN] - What to do if you have Problems For any increased pain, shortness of breath, bleeding, nausea or vomiting, chest pain, or any unexpected problems, contact your Primary Care Provider. Call [facility] [employer] [facility] ([phone]) or report to the closest Emergency Room. Call 911 if necessary. 09/01/18 2335 <Electronically signed by Cortney Leal MD> Date Cortney Leal MD Cosigner Signature (If Indicated): Date CC: Laney Horvath DO CHEST 1 VIEW Observed: 09/01/2018 Status: F Source: [place] (PORTABLE) 9:33 PM REPOSITORY [facility] Imaging Services [address] [place] [address] Chest 1 View (Portable) MR#: [id number] Acct: [id number] Name: MARIA G DILLON Rep #: [id number] : 1945 F 72 From: Lauren Blank MD PCP: Laeny Horvath DO Status: REG ER Study: Chest 1 View (Portable) Date of Exam: 09/01/18 Exam# [id number] Ordering Dr: Cortney Leal MD STUDY: X-RAY CHEST REASON FOR EXAM: Female, 72 years old. Cough. TECHNIQUE: Single AP portable view of the chest. COMPARISON: August 19, 2018. FINDINGS: Cardiac monitoring leads are present. The lungs are expanded. There is mild interstitial thickening present particularly at the lung bases. This is unchanged since the previous study and may represent pulmonary fibrosis. There is increased lucency at the right lung apex possibly related to emphysema. There is no demonstrated pleural abnormality. There is mild cardiac enlargement. Normal annalee. Normal visualized pulmonary arteries. There is atherosclerotic calcification of the aortic arch with tortuosity. There is demineralization of the osseous structures. There is decreased bilateral acromiohumeral distances suggesting sequela chronic rotator cuff tears. There are degenerative changes of both shoulders. There is a middle mediastinal mass like process probably representing a hiatal hernia. RAD/Chest 1 View (Portable) IMPRESSION: 1. Unchanged appearance of the chest. 2. Hiatal hernia. Electronically Signed: Lauren Blank MD at 22:24 EST , Service support , CC: Cortney Leal MD; Laney Horvath DO Analysis Lead: Signed ABDOMEN/PELVIS WITHOUT Observed: 09/01/2018 Status: F Source: [place] CONT 8:43 PM REPOSITORY [facility] Imaging Services [address] [place] [address] Abdomen/Pelvis without Cont MR#: [id number] Acct: [id number] Name: MARIA G DILLON Rep #: [id number] : 1945 F 72 From: Lauren Blank MD PCP: Laney Horvath DO Status: REG ER Study: Abdomen/Pelvis without Cont Date of Exam: 09/01/18 Exam# [id number] Ordering Dr: Cortney Leal MD STUDY: CT ABDOMEN AND PELVIS WITHOUT CONTRAST REASON FOR EXAM: Female, 72 years old. Left-sided flank pain. RADIATION DOSAGE (If Supplied By Facility): CTDIvol = ( 23.77 ) mGy, DLP = ( 1051.06 ) mGycm TECHNIQUE: Transaxial images were obtained from the dome of the diaphragm to the symphysis pubis without oral contrast, and without intravenous contrast. Sagittal and coronal images were reconstructed. Individualized dose optimization techniques were used for this CT. COMPARISON: None. FINDINGS: There is bilateral basilar dependent atelectasis. There may be some calcification of the mitral annulus. The visualized portions of the heart are within normal limits. Normal liver. Normal gallbladder and extrahepatic biliary system. Normal spleen. There is diffuse atrophy of the pancreas. The right adrenal gland is not visualized. There appears to be diffuse enlargement of the left adrenal gland possibly related to hyperplasia. There are calcifications within the left adrenal gland. Normal right kidney. Normal left kidney. There is a large hiatal hernia composed mostly of the fundus of the stomach. There is no evidence for dilated bowel, ascites or pneumoperitoneum. The small bowel has a grossly normal appearance. Stool is visible throughout the colon with scattered colonic diverticula. The cecum is located in the central abdomen suggesting possible mobility. The appendix is visualized and appears normal. There is patchy atherosclerotic calcification of the abdominal aorta with elongation and tortuosity, but without a demonstrated aneurysm. Normal inferior vena cava. Normal retroperitoneum. Normal urinary bladder. Normal visualized uterus. There is a small umbilical hernia containing fat. There are diffuse degenerative changes of the visualized spine. The bones appear osteopenic. There is mild curvature of the lumbar spine with convexity towards the right. There is grade 1 spondylolisthesis at L4-5. There is moderately severe multilevel degenerative arthropathy with facet joints of the lumbar spine. There is an exaggerated lumbar lordosis. CT/Abdomen/Pelvis without Cont IMPRESSION: 1. No CT evidence of acute intra-abdominal disease. 2. Large amount of stool suggesting possible fecal stasis. 3. Hiatal hernia. 4. Left-sided inguinal lymphadenopathy. Electronically Signed: Lauren Blank MD at 21:36 EST , Service support , CC: Cortney Leal MD; Laney Horvath DO Analysis Lead: Signed CBC W/DIFF, AUTOMATED Collected: 09/01/2018 Status: F Source: [place] 8:35 PM REPOSITORY TYPE CODE TESTS RESULT OUT OF RANGE REFERENCE UNITS LAB L100.1000 4.4-11.0 K/mm3 Normal WBC 10.6 LAB L100.1200 4.2-5.4 M/mm3 Low RBC 4.02 LAB L100.1300 12.0-15.0 g/dl Low HGB 10.1 LAB L100.1400 37-47 % Low HCT 32.7 LAB L100.1500 81-99 fL Normal MCV 81.3 LAB L100.1600 27.0-32.0 pg Low MCH 25.1 LAB L100.1700 32-36 g/gl Low MCHC 30.9 LAB L100.1810 11.6-14.6 % High RDW CV 17.1 LAB L100.1820 35.1-43.9 fl High RDW SD 51.2 LAB L100.1900 150-450 K/mm3 Normal PLT 239 LAB L100.2000 6.2-12.0 fl Normal MPV 8.2 LAB L100.2100 47-70 % High NEUT% 86.9 LAB L100.2200 19-41 % Low LY% 6.4 LAB L100.2300 0-10 % Normal MONO% 5.9 LAB L100.2400 0-5 % Normal EO% 0.3 LAB L100.2500 0-1 % Normal BASO% 0.1 LAB L100.2550 0.0-0.9 % Normal IM GRAN % 0.400 Result Comment: IG% - Immature Granulocytes (promyelocytes, myelocytes and metamyelocytes) > 1% indicates that a LEFT SHIFT is Present. LAB L100.2620 2.0-7.7 X10 3/uL High Absolute Neut 9.2 LAB L100.2720 0.83-4.51 X10 3/ul Low Absolute Lymph 0.68 Performed By: #### L100.0100 #### [facility] [address] [place], [place], [id number] BASIC METABOLIC Collected: 09/01/2018 Status: F Source: [place] PROFILE (BMP) 8:35 PM REPOSITORY TYPE CODE TESTS RESULT OUT OF RANGE REFERENCE UNITS LAB L501.0100 74-106 mg/dL High GLU 150 Result Comment: Fasting Glucose result greater than or equal to 126 mg/dL suggests DIABETES MELLITUS per A.D.A. criteria. Please note revised GLUCOSE reference range effective 2017. LAB L501.1000 7-18 mg/dL Normal BUN 17 LAB L501.1100 0.55-1.02 mg/dL Normal CREAT,SERUM 0.89 Result Comment: The validity of the calculated GFR AND GFRAA in patients over 70 years has not been determined. Clinical correlation is essential. LAB L501.1110 >60 mL/min Normal EST GFR 67 Result Comment: Non- GFR Calc LAB L501.1115 >60 mL/min Normal EST GFR - AA 80 Result Comment: GFR Calc LAB L501.1255 ml/min Normal Estimated CRCL 43.75 LAB L501.1300 10-20 RATIO Normal BUN/CRE 19.1 LAB L501.2200 8.5-10 mg/dL Low .1 CA 7.6 LAB L501.5300 136-14 mmol/L Low 5 NA 135 LAB L501.5600 3.5-5. mmol/L Normal 1 K 3.7 LAB L501.5900 98-107 mmol/L Normal CL 100 LAB L501.6100 21.0-3 mmol/L Normal 2.0 CO2 24.0 LAB L501.6200 5-15 Normal GAP 11 Performed By: #### L500.2500, L501.4010 #### [facility] [address] [place], [place], [address] TROPONIN-I Collected: 09/01/2018 Status: F Source: [place] 8:35 PM REPOSITORY TYPE CODE TESTS RESULT OUT OF RANGE REFERENCE UNITS LAB L501.4010 <0.045 ng/mL Normal < 0.015 TROPONIN-I Result Comment: TROPONIN-I EXPECTED VALUES <0.045 Negative 0.045 - 0.590 Consistent with Cardiac Damage > OR = 0.600 Critical Value Not every elevated troponin is indicative of HI. These values should be used with clinical judgement in examining the patient's clinical picture for diagnosis. To establish a diagnosis of HI versus myocardial injury, there must be a demonstrated rise and/or fall in the troponin values, in addition to ischemic symptoms, EKG changes, new regional wall motion abnormality, and/or angiographical evidence. PLEASE NOTE: REFERENCE RANGES EDITED 17 Performed By: #### L500.2500, L501.4010 #### [facility] [address] [place], [address] CBC W/DIFF, AUTOMATED Collected: 08/29/2018 Status: C Source: [place] 10:15 AM REPOSITORY TYPE CODE TESTS RESULT OUT OF RANGE REFERENCE UNITS LAB L100.1000 4.4-11.0 K/mm3 Low WBC 4.1 LAB L100.1200 4.2-5.4 M/mm3 Low RBC 3.52 LAB L100.1300 12.0-15.0 g/dl Low HGB 8.8 LAB L100.1400 37-47 % Low HCT 28.4 LAB L100.1500 81-99 fL Low MCV 80.7 LAB L100.1600 27.0-32.0 pg Low MCH 25.0 LAB L100.1700 32-36 g/gl Low MCHC 31.0 LAB L100.1810 11.6-14.6 % High RDW CV 17.1 LAB L100.1820 35.1-43.9 fl High RDW SD 48.9 LAB L100.1900 150-450 K/mm3 Normal PLT 221 LAB L100.2000 6.2-12.0 fl Normal MPV 8.8 LAB L100.2100 47-70 % High NEUT% 71.5 LAB L100.2200 19-41 % Low LY% 14.4 LAB L100.2300 0-10 % High MONO% 10.5 LAB L100.2400 0-5 % Normal EO% 2.9 LAB L100.2500 0-1 % Normal BASO% 0.2 LAB L100.2550 0.0-0.9 % Normal IM GRAN % 0.500 Result Comment: IG% - Immature Granulocytes (promyelocytes, myelocytes and metamyelocytes) > 1% indicates that a LEFT SHIFT is Present. LAB L100.2620 2.0-7.7 X10 3/uL Absolute Neut Normal 2.9 LAB L100.2720 0.83-4.51 X10 3/ul Low Absolute Lymph 0.59 LAB L100.7300 ANISO Normal 1+ LAB L100.7600 HYPOCHROMASIA Normal 1+ LAB L100.9900 PATH REV Normal Reviewed Result Comment: Absolute lymphopenia. Microcytic anemia. Clinical correlation suggested. Rayshawn Root D.O. 09/02/18 AMENDED REPORT 09/02/18 1017 PATH REV previously reported as: December bernardino Performed By: #### L100.0100 #### [facility] [address] [place], [place], [id number] BASIC METABOLIC Collected: 08/29/2018 Status: F Source: [place] PROFILE ([facility]) 10:15 AM REPOSITORY TYPE CODE TESTS RESULT OUT OF RANGE REFERENCE UNITS LAB L501.0100 74-106 mg/dL Normal GLU 82 Result Comment: Please note revised GLUCOSE reference range effective 2017. LAB L501.1000 7-18 mg/dL Normal BUN 14 LAB L501.1100 0.55-1.02 mg/dL Low CREAT,SERUM 0.48 Result Comment: The validity of the calculated GFR AND GFRAA in patients over 70 years has not been determined. Clinical correlation is essential. LAB L501.1110 >60 mL/min Normal EST GFR 137 Result Comment: Non- GFR Calc LAB L501.1115 >60 mL/min Normal EST GFR - AA 165 Result Comment: GFR Calc LAB L501.1300 10-20 RATIO High BUN/CRE 29.4 LAB L501.2200 8.5-10.1 mg/dL Low CA 7.4 LAB L501.5300 136-145 mmol/L NA Normal 138 LAB L501.5600 3.5-5.1 mmol/L K Normal 3.6 LAB L501.5900 98-107 mmol/L CL Normal 107 LAB L501.6100 21.0-32.0 mmol/L Normal CO2 23.0 LAB L501.6200 5-15 Normal GAP 8 Performed By: #### L500.2500 #### [facility] [address] [place], [place], [address] BASIC METABOLIC Collected: 08/28/2018 Status: F Source: [place] PROFILE ([facility]) 7:25 AM REPOSITORY Order Comment: 133 TYPE CODE TESTS RESULT OUT OF RANGE REFERENCE UNITS LAB L501.0100 74-106 mg/dL Normal GLU 74 Result Comment: Please note revised GLUCOSE reference range effective 2017. LAB L501.1000 7-18 mg/dL Normal BUN 18 LAB L501.1100 0.55-1.02 mg/dL Normal CREAT,SERUM 0.64 Result Comment: The validity of the calculated GFR AND GFRAA in patients over 70 years has not been determined. Clinical correlation is essential. LAB L501.1110 >60 mL/min Normal EST GFR 97 Result Comment: Non- GFR Calc LAB L501.1115 >60 mL/min Normal EST GFR - AA 117 Result Comment: GFR Calc LAB L501.1300 10-20 RATIO High BUN/CRE 28.0 LAB L501.2200 8.5-10.1 mg/dL Low CA 7.4 LAB L501.5300 136-145 mmol/L NA Normal 138 LAB L501.5600 3.5-5.1 mmol/L K Normal 4.1 LAB L501.5900 98-107 mmol/L CL Normal 105 LAB L501.6100 21.0-32.0 mmol/L Normal CO2 27.0 LAB L501.6200 5-15 Normal GAP 6 Performed By: #### L500.2500 #### [facility] [address] [facility] [place], [place], [address] BASIC METABOLIC Collected: 08/26/2018 Status: F Source: [place] PROFILE ([facility]) 6:55 AM REPOSITORY Order Comment: 133 TYPE CODE TESTS RESULT OUT OF RANGE REFERENCE UNITS LAB L501.0100 74-106 mg/dL Normal GLU 88 Result Comment: Please note revised GLUCOSE reference range effective 2017. LAB L501.1000 7-18 mg/dL High BUN 24 LAB L501.1100 0.55-1.02 mg/dL Normal CREAT,SERUM 0.73 Result Comment: The validity of the calculated GFR AND GFRAA in patients over 70 years has not been determined. Clinical correlation is essential. LAB L501.1110 >60 mL/min Normal EST GFR 83 Result Comment: Non- GFR Calc LAB L501.1115 >60 mL/min Normal EST GFR - AA 101 Result Comment: GFR Calc LAB L501.1300 10-20 RATIO High BUN/CRE 32.8 LAB L501.2200 8.5-10.1 mg/dL Low CA 7.5 LAB L501.5300 136-145 mmol/L NA Normal 137 LAB L501.5600 3.5-5.1 mmol/L Low K 3.4 LAB L501.5900 98-107 mmol/L CL Normal 104 LAB L501.6100 21.0-32.0 mmol/L Normal CO2 24.0 LAB L501.6200 5-15 Normal GAP 9 Performed By: #### L500.2500 #### [facility] [address] [facility] [place], [address] 12 LEAD ELECTROCARDIOGRAM Observed: 08/25/2018 Status: F Source: [place] 9:48 AM REPOSITORY [facility] Cardiovascular Services [address] [place] [address] 12 Lead EKG 08/19/18 1257 MR#: [id number] Acct: [id number] Name: MARIA G DILLON Rep #: [id number] : 1945 72 From: Jaylan Dunbar MD Attending Dr: Status: DEP ER Ordering Dr: Aly Felder MD Date: 08/19/18 Location: ED Sex: F C Admitted: Test Reason : GEN ILLNESS Blood Pressure : / mmHG Vent. Rate : 083 BPM Atrial Rate : 083 BPM P-R Int : 174 ms QRS Dur : 092 ms QT Int : 378 ms P-R-T Axes : 026 002 006 degrees QTc Int : 444 ms Normal sinus rhythm Minimal voltage criteria for LVH, may be normal variant Borderline ECG Confirmed by JYALAN DUNBAR MD ([id number]), editor greeting card ABBI BLANK ([id number]) on 08/25/2018 9:47:37 AM Referred By: MEGHA Confirmed By:JAYLAN DUNBAR MD 08/25/18 0947 Date Jaylan Dunbar MD CC: Aly Felder MD; Laney Horvath DO Signed CBC-COMPLETE BLOOD CNT Collected: 08/22/2018 Status: F Source: BOBBY NO DIFF 12:10 PM REPOSITORY Order Comment: ROOM 133 TYPE CODE TESTS RESULT OUT OF RANGE REFERENCE UNITS LAB L100.1000 4.4-11.0 K/mm3 Normal WBC 6.7 LAB L100.1200 4.2-5.4 M/mm3 Low RBC 3.79 LAB L100.1300 12.0-15.0 g/dl Low HGB 9.7 LAB L100.1400 37-47 % Low HCT 31.0 LAB L100.1500 81-99 fL Normal MCV 81.8 LAB L100.1600 27.0-32.0 pg Low MCH 25.6 LAB L100.1700 32-36 g/gl Low MCHC 31.3 LAB L100.1810 11.6-14.6 % High RDW CV 16.7 LAB L100.1820 35.1-43.9 fl High RDW SD 48.9 LAB L100.1900 150-450 K/mm3 Normal PLT 326 LAB L100.2000 6.2-12.0 fl Normal MPV 8.7 Performed By: #### L100.0500 #### [facility] [address], [address] COMPREHENSIVE METABOLIC Collected: 08/22/2018 Status: F Source: BOBBY PROFIL 12:10 PM REPOSITORY Order Comment: ROOM 133 TYPE CODE TESTS RESULT OUT OF RANGE REFERENCE UNITS LAB L501.0100 74-106 mg/dL Normal GLU 77 Result Comment: Please note revised GLUCOSE reference range effective 2017. LAB L501.1000 7-18 mg/dL High BUN 27 LAB L501.1100 0.55-1.02 mg/dL High CREAT,SERUM 1.04 Result Comment: The validity of the calculated GFR AND GFRAA in patients over 70 years has not been determined. Clinical correlation is essential. LAB L501.1110 >60 mL/min Low EST GFR 55 Result Comment: Non- GFR Calc LAB L501.1115 >60 mL/min Normal EST GFR - AA 67 Result Comment: GFR Calc LAB L501.1300 10-20 RATIO High BUN/CRE 26.0 LAB L501.1500 6.4-8.2 g/dL T Normal PROT 7.0 LAB L501.1800 3.2-5.0 g/dL Low ALB 2.7 LAB L501.1950 2.2-4.2 g/dL High GLOB 4.3 LAB L501.2000 0.9-2.4 RATIO Low A/G 0.6 LAB L501.2200 8.5-10.1 mg/dL Low CA 7.9 LAB L501.4100 15-37 U/L Low AST 14 LAB L501.4305 45-117 U/L Normal ALK P 85 LAB L501.4405 13-56 U/L Low ALT < 6 LAB L501.4600 0.20-1.00 mg/dL T Normal BILI 0.40 LAB L501.5300 136-145 mmol/L NA Normal 136 LAB L501.5600 3.5-5.1 mmol/L K Normal 3.9 LAB L501.5900 98-107 mmol/L CL Normal 105 LAB L501.6100 21.0-32.0 mmol/L Low CO2 20.0 LAB L501.6200 5-15 Normal GAP 11 Performed By: #### L500.4050 #### [facility] [address] [place], [address] LACTIC ACID Collected: 08/22/2018 Status: F Source: BOBBY 12:10 PM REPOSITORY TYPE CODE TESTS RESULT OUT OF RANGE REFERENCE UNITS LAB L503.6005 0.4-2.0 mmol/L Normal LACTIC ACID 1.5 Performed By: #### L503.6005 #### [facility] [address] [place], [address] BASIC METABOLIC Collected: 08/20/2018 Status: F Source: BOBBY PROFILE (BMP) 5:50 AM REPOSITORY Order Comment: 133 TYPE CODE TESTS RESULT OUT OF RANGE REFERENCE UNITS LAB L501.0100 74-106 mg/dL Low GLU 46 Result Comment: Glucose result less than 50 mg/dL suggests HYPOGLYCEMIA. Please note revised GLUCOSE reference range effective 2017. LAB L501.1000 7-18 mg/dL High BUN 24 LAB L501.1100 0.55-1.02 mg/dL Normal CREAT,SERUM 0.83 Result Comment: The validity of the calculated GFR AND GFRAA in patients over 70 years has not been determined. Clinical correlation is essential. LAB L501.1110 >60 mL/min Normal EST GFR 72 Result Comment: Non- GFR Calc LAB L501.1115 >60 mL/min Normal EST GFR - AA 87 Result Comment: GFR Calc LAB L501.1300 10-20 RATIO High BUN/CRE 28.8 LAB L501.2200 8.5-10.1 mg/dL Low CA 8.0 LAB L501.5300 136-145 mmol/L NA Normal 138 LAB L501.5600 3.5-5.1 mmol/L K Normal 3.8 LAB L501.5900 98-107 mmol/L CL Normal 105 LAB L501.6100 21.0-32.0 mmol/L Normal CO2 22.0 LAB L501.6200 5-15 Normal GAP 11 Performed By: #### L500.2500 #### [facility] [address] [facility] [place], [address] CBC W/DIFF, AUTOMATED Collected: 08/20/2018 Status: F Source: HESTER 5:50 AM REPOSITORY TYPE CODE TESTS RESULT OUT OF RANGE REFERENCE UNITS LAB L100.1000 4.4-11.0 K/mm3 Normal WBC 6.6 LAB L100.1200 4.2-5.4 M/mm3 Low RBC 3.49 LAB L100.1300 12.0-15.0 g/dl Low HGB 9.0 LAB L100.1400 37-47 % Low HCT 28.8 LAB L100.1500 81-99 fL Normal MCV 82.5 LAB L100.1600 27.0-32.0 pg Low MCH 25.8 LAB L100.1700 32-36 g/gl Low MCHC 31.3 LAB L100.1810 11.6-14.6 % High RDW CV 16.9 LAB L100.1820 35.1-43.9 fl High RDW SD 51.8 LAB L100.1900 150-450 K/mm3 Normal PLT 279 LAB L100.2000 6.2-12.0 fl Normal MPV 8.3 LAB L100.2100 47-70 % High NEUT% 74.2 LAB L100.2200 19-41 % Low LY% 14.0 LAB L100.2300 0-10 % Normal MONO% 9.5 LAB L100.2400 0-5 % Normal EO% 1.8 LAB L100.2500 0-1 % Normal BASO% 0.3 LAB L100.2550 0.0-0.9 % Normal IM GRAN % 0.200 Result Comment: IG% - Immature Granulocytes (promyelocytes, myelocytes and metamyelocytes) > 1% indicates that a LEFT SHIFT is Present. LAB L100.2620 2.0-7.7 X10 3/uL Normal Absolute Neut 4.9 LAB L100.2720 0.83-4.51 X10 3/ul Normal Absolute Lymph 0.92 Performed By: #### L100.0100 #### [facility] [address] [facility] [place], [address] EMERGENCY DEPARTMENT Observed: 08/19/2018 Status: F Source: HESTER SUMMARY 4:46 PM REPOSITORY [facility] Medical Records Department [address] [place] [address] Emergency Department Summary 08/19/18 1629 MR#: [id number] Acct: [id number] Name: MARIA G DILLON Rep #: [id number] : 1945 72 From: Aly Felder MD PCP: Laney Horvath DO Status: REG ER - ER Visit Summary Date of Service: 08/19/18 Chief Complaint: Generalized weakness History of Present Illness: The patient is a 72 F 3 of MRSA, anemia and chronic leg wounds. Patient was recently transfused 2 units of blood. Says he just has been feeling well she is had some intermittent. Potassium resolved. She denies any nausea, vomiting, diarrhea or dysuria. No fever. No headaches. No abdominal pain. No melena. Physical Examination: Vital signs are stable and afebrile. Pulse ox 97% on room air no signs of hypoxia. HEENT exam unremarkable atraumatic. Dry reactive light. No facial droop. Normal speech. Moist mucous memories. Neck nontender. No lymphadenopathy. No meningismus. Heart regular rhythm rate about 80 4/6 systolic ejection murmur. Lungs clear to auscultation bilaterally. Abdomen is soft and nontender. Normal bowel sounds no peritoneal signs. Patient is moving all 4 extremities. She has wraps on both lower extremities from where she is getting chronic wound care. There is equal symmetrical edema bilaterally. Neurologically she is awake and alert with no focal motor deficits. She knows day month and year. She knows she is in the hospital. She knows the president. Test Results: Chest x-ray shows chronic changes no acute process. Read both by myself and the radiologist. EKG sinus rhythm rate of 83 with no acute signs of HI or ischemia. There is LVH. Unchanged from prior EKG. CBC shows a normal white count of 7. Hemoglobin of 9. At her baseline chronic anemia. Electrolytes unremarkable gap of 10. Creatinine is 0.9. UA is normal. It was a cath specimen. Troponin normal. Lactic acid is 1.1. Blood cultures are pending. Emergency Department Course and Treatment: Patient treated with 1 L normal saline. Multiple repeat exam she is doing well. She was in the emergency department a lengthy period of time due to difficulty in obtaining a urine for analysis. Treatment Plan: Discharged home. Follow-up with your doctor. Disposition: Discharge Impression: Generalized weakness uncertain etiology. Chronic anemia This note was generated with Minefold dictation software. It may contain incorrect words, spelling, and punctuation that were not noted in review of the chart prior to signing ED Disposition - Plan for ED Patient: Chief Complaint: General Illness Referrals: Laney Horvath, [Primary Care Provider] - What to do if you have Problems For any increased pain, shortness of breath, bleeding, nausea or vomiting, chest pain, or any unexpected problems, contact your Primary Care Provider. Call [employer] ([phone]) or report to the closest Emergency Room. Call 911 if necessary. 08/19/18 0058 <Electronically signed by Aly Felder MD> Date Aly Felder MD Cosigner Signature (If Indicated): Date CC: Laney Horvath DO DISCHARGE INSTRUCTION Observed: 08/19/2018 Status: F Source: BOBBY 4:46 PM REPOSITORY [facility] Medical Records Department [address] [place] [address] Discharge Instruction 08/19/18 1634 MR#: [id number] Acct: [id number] Name: MARIA G DILLON Rep #: [id number] : 1945 72 From: Aly Felder MD PCP: Laney Horvath DO Status: REG ER ED Disposition - Plan for ED Patient: Disposition: Home or Assisted Living Chief Complaint: General Illness Referrals: Laney Horvath DO [Primary Care Provider] - 3-5 Days if not improving Additional Instructions: Plenty of fluids and rest. Follow-up with your doctor if not improving. Return if feeling worse. What to do if you have Problems For any increased pain, shortness of breath, bleeding, nausea or vomiting, chest pain, or any unexpected problems, contact your Primary Care Provider. Call [facility] ([phone]) or report to the closest Emergency Room. Call 911 if necessary. 08/19/18 1646 <Electronically signed by Aly Felder MD> Date Aly Felder MD Cosigner Signature (If Indicated): Date CC: Laney Horvath DO Observed: 08/19/2018 Status: F Source: BOBBY CULTURE, BLOOD (WB) 3:25 PM REPOSITORY BC No growth in 5 days. Performed By: #### M200.1000 #### [facility] [address] [place], [address] URINALYSIS, COMPLETE Collected: 08/19/2018 Status: F Source: BOBBY 3:20 PM REPOSITORY Order Comment: Order Date: 08/19/18 Has pt arrived? Y How was Urine Obtained? CATHETER SPECIMEN TYPE CODE TESTS RESULT OUT OF RANGE REFERENCE UNITS LAB L400.3000 Yellow COLOR Normal Yellow LAB L400.3050 Clear Normal CLARITY Clear LAB L400.3200 Normal mg/dl Normal GLUCOSE, UR Normal LAB L400.3300 Negative mg/dL Normal BILIRUBIN URINE Negative LAB L400.3400 Negative mg/dl High 50 KETONE UR LAB L400.3465 1.002-1.030 Normal SP.GR. DIPSTX 1.020 LAB L400.3550 5.0 - 8.0 pH UR Normal 6.0 LAB L400.3600 Negative mg/dl PROT Normal DIPSTX Negative LAB L400.3700 Normal mg/dl Normal UROBILI Normal LAB L400.3750 Negative Normal NITRITE UR Negative LAB L400.3780 Negative /ul High 25 OCCULT BLOOD-UR LAB L400.3800 Negative /ul LEUK Normal ESTERASE Negative LAB L400.4050 0-5 /hpf WBC 0 Normal SEEN LAB L400.4100 0-5 /hpf 0 Normal RBC-UA SEEN LAB L400.4150 5-10 /hpf SQUAM 0 Normal EPI SEEN LAB L400.4300 None Seen /hpf 0 Normal BACTERIA SEEN LAB L400.4350 <or=2+ /hpf 0 Normal MUCUS, URINE SEEN Performed By: #### L400.0001 #### [facility] [address] [place], [address] CBC W/DIFF, AUTOMATED Collected: 08/19/2018 Status: F Source: BOBBY 1:06 PM REPOSITORY TYPE CODE TESTS RESULT OUT OF RANGE REFERENCE UNITS LAB L100.1000 4.4-11.0 K/mm3 Normal WBC 7.8 LAB L100.1200 4.2-5.4 M/mm3 Low RBC 3.49 LAB L100.1300 12.0-15.0 g/dl Low HGB 9.0 LAB L100.1400 37-47 % Low HCT 28.4 LAB L100.1500 81-99 fL Normal MCV 81.4 LAB L100.1600 27.0-32.0 pg Low MCH 25.8 LAB L100.1700 32-36 g/gl Low MCHC 31.7 LAB L100.1810 11.6-14.6 % High RDW CV 16.6 LAB L100.1820 35.1-43.9 fl High RDW SD 49.7 LAB L100.1900 150-450 K/mm3 Normal PLT 264 LAB L100.2000 6.2-12.0 fl Normal MPV 8.3 LAB L100.2100 47-70 % High NEUT% 84.4 LAB L100.2200 19-41 % Low LY% 8.4 LAB L100.2300 0-10 % Normal MONO% 6.3 LAB L100.2400 0-5 % Normal EO% 0.5 LAB L100.2500 0-1 % Normal BASO% 0.1 LAB L100.2550 0.0-0.9 % Normal IM GRAN % 0.300 Result Comment: IG% - Immature Granulocytes (promyelocytes, myelocytes and metamyelocytes) > 1% indicates that a LEFT SHIFT is Present. LAB L100.2620 2.0-7.7 X10 3/uL Normal Absolute Neut 6.6 LAB L100.2720 0.83-4.51 X10 3/ul Low Absolute Lymph 0.66 Performed By: #### L100.0100 #### [facility] [address] [facility]. [place], [place], [address] LACTIC ACID Collected: 08/19/2018 Status: F Source: BOBBY 1:06 PM REPOSITORY Order Comment: Yes/No query for Sepsis Lactate Rule Y TYPE CODE TESTS RESULT OUT OF RANGE REFERENCE UNITS LAB L503.6005 0.4-2.0 mmol/L Normal LACTIC ACID 1.1 Performed By: #### L503.6005 #### [facility] [address] [facility] [place], [address] BASIC METABOLIC Collected: 08/19/2018 Status: F Source: BOBBY PROFILE (BMP) 1:06 PM REPOSITORY TYPE CODE TESTS RESULT OUT OF RANGE REFERENCE UNITS LAB L501.0100 74-106 mg/dL Normal GLU 75 Result Comment: Please note revised GLUCOSE reference range effective 2017. LAB L501.1000 7-18 mg/dL High BUN 27 LAB L501.1100 0.55-1.02 mg/dL Normal CREAT,SERUM 0.90 Result Comment: The validity of the calculated GFR AND GFRAA in patients over 70 years has not been determined. Clinical correlation is essential. LAB L501.1110 >60 mL/min Normal EST GFR 65 Result Comment: Non- GFR Calc LAB L501.1115 >60 mL/min Normal EST GFR - AA 79 Result Comment: GFR Calc LAB L501.1255 ml/min Normal Estimated CRCL 43.26 LAB L501.1300 10-20 RATIO High BUN/CRE 29.9 LAB L501.2200 8.5-10 mg/dL Low .1 CA 8.0 LAB L501.5300 136-14 mmol/L Low 5 NA 135 LAB L501.5600 3.5-5. mmol/L Normal 1 K 4.5 Result Comment: Moderate Hemolysis, Result may be falsely increased. LAB L501.5900 98-107 mmol/L Normal CL 103 LAB L501.6100 21.0-32.0 mmol/L Normal CO2 22.0 LAB L501.6200 5-15 Normal GAP 10 Performed By: #### L500.2500, L501.4010 #### [facility] [address] [facility] [place], [place], [address] TROPONIN-I Collected: 08/19/2018 Status: F Source: HESTER 1:06 PM REPOSITORY TYPE CODE TESTS RESULT OUT OF RANGE REFERENCE UNITS LAB L501.4010 <0.045 ng/mL Normal < 0.015 TROPONIN-I Result Comment: TROPONIN-I EXPECTED VALUES <0.045 Negative 0.045 - 0.590 Consistent with Cardiac Damage > OR = 0.600 Critical Value Not every elevated troponin is indicative of HI. These values should be used with clinical judgement in examining the patient's clinical picture for diagnosis. To establish a diagnosis of HI versus myocardial injury, there must be a demonstrated rise and/or fall in the troponin values, in addition to ischemic symptoms, EKG changes, new regional wall motion abnormality, and/or angiographical evidence. PLEASE NOTE: REFERENCE RANGES EDITED 17 Performed By: #### L500.2500, L501.4010 #### [facility] [address] [place], [address] Observed: 08/19/2018 Status: F Source: HESTER CULTURE, BLOOD (WB) 1:06 PM REPOSITORY BC No growth in 5 days. Performed By: #### M200.1000 #### [facility] [address] [place], [address] CHEST 1 VIEW Observed: 08/19/2018 Status: F Source: BOBBY (PORTABLE) 12:47 PM [facility] REPOSITORY [facility] Imaging Services [address] [place] [address] Chest 1 View (Portable) MR#: [id number] Acct: [id number] Name: MARIA G DILLON Rep #: [id number] : 1945 F 72 From: Giovani De La Cruz MD PCP: Laney Horvath DO Status: REG ER Study: Chest 1 View (Portable) Date of Exam: 08/19/18 Exam# [id number] Ordering Dr: Aly Felder MD STUDY: X-RAY CHEST REASON FOR EXAM: Female, 72 years old. Weakness. TECHNIQUE: Single AP portable upright view of the chest. COMPARISON: Portable AP upright chest x-ray June 14, 2018. FINDINGS: The lungs are clear and expanded. There is no demonstrated pleural abnormality. Normal size heart. Normal mediastinum and annalee. Normal visualized pulmonary arteries. There is atherosclerotic calcification of the aortic arch. There are stable multilevel degenerative changes of the visualized thoracic spine. 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 Rounded soft tissue fullness at the medial right cardiophrenic angle is consistent with a hiatal hernia. RAD/Chest 1 View (Portable) IMPRESSION: 1. No acute cardiopulmonary disease. 2. Small hiatal hernia noted. Electronically Signed: Max De La Cruz MD at 13:56 EST , Service support , CC: Aly Felder MD; Laney Horvath DO Analysis Lead: Signed CBC W/DIFF, AUTOMATED Collected: 08/19/2018 Status: F Source: BOBBY 9:05 AM REPOSITORY Order Comment: 133 TYPE CODE TESTS RESULT OUT OF RANGE REFERENCE UNITS LAB L100.1000 4.4-11.0 K/mm3 Normal WBC 8.6 LAB L100.1200 4.2-5.4 M/mm3 Low RBC 3.51 LAB L100.1300 12.0-15.0 g/dl Low HGB 9.0 LAB L100.1400 37-47 % Low HCT 28.5 LAB L100.1500 81-99 fL Normal MCV 81.2 LAB L100.1600 27.0-32.0 pg Low MCH 25.6 LAB L100.1700 32-36 g/gl Low MCHC 31.6 LAB L100.1810 11.6-14.6 % High RDW CV 16.5 LAB L100.1820 35.1-43.9 fl High RDW SD 49.8 LAB L100.1900 150-450 K/mm3 Normal PLT 241 LAB L100.2000 6.2-12.0 fl Normal MPV 8.0 LAB L100.2100 47-70 % High NEUT% 84.2 LAB L100.2200 19-41 % Low LY% 9.6 LAB L100.2300 0-10 % Normal MONO% 5.1 LAB L100.2400 0-5 % Normal EO% 0.7 LAB L100.2500 0-1 % Normal BASO% 0.2 LAB L100.2550 0.0-0.9 % Normal IM GRAN % 0.200 Result Comment: IG% - Immature Granulocytes (promyelocytes, myelocytes and metamyelocytes) > 1% indicates that a LEFT SHIFT is Present. LAB L100.2620 2.0-7.7 X10 3/uL Normal Absolute Neut 7.2 LAB L100.2720 0.83-4.51 X10 3/ul Low Absolute Lymph 0.82 Performed By: #### L100.0100 #### [facility] [place], [address] COMPREHENSIVE METABOLIC Collected: 08/19/2018 Status: F Source: BOBBY GRIGSBY 9:05 AM REPOSITORY Order Comment: 133 TYPE CODE TESTS RESULT OUT OF RANGE REFERENCE UNITS LAB L501.0100 74-106 mg/dL Low GLU 60 Result Comment: Please note revised GLUCOSE reference range effective 2017. LAB L501.1000 7-18 mg/dL High BUN 27 LAB L501.1100 0.55-1.02 mg/dL Normal CREAT,SERUM 0.91 Result Comment: The validity of the calculated GFR AND GFRAA in patients over 70 years has not been determined. Clinical correlation is essential. LAB L501.1110 >60 mL/min Normal EST GFR 64 Result Comment: Non- GFR Calc LAB L501.1115 >60 mL/min Normal EST GFR - AA 78 Result Comment: GFR Calc LAB L501.1300 10-20 RATIO High BUN/CRE 29.5 LAB L501.1500 6.4-8.2 g/dL Low T PROT 6.2 LAB L501.1800 3.2-5.0 g/dL Low ALB 2.4 LAB L501.1950 2.2-4.2 g/dL Normal GLOB 3.8 LAB L501.2000 0.9-2.4 RATIO Low A/G 0.6 LAB L501.2200 8.5-10.1 mg/dL Low CA 8.1 LAB L501.4100 15-37 U/L Low AST 11 LAB L501.4305 45-117 U/L Normal ALK P 78 LAB L501.4405 13-56 U/L Low ALT < 6 LAB L501.4600 0.20-1.00 mg/dL T Normal BILI 0.40 LAB L501.5300 136-145 mmol/L NA Normal 136 LAB L501.5600 3.5-5.1 mmol/L K Normal 4.3 LAB L501.5900 98-107 mmol/L CL Normal 104 LAB L501.6100 21.0-32.0 mmol/L Normal CO2 21.0 LAB L501.6200 5-15 Normal GAP 11 Performed By: #### L500.4050 #### [facility] [address] [place], [address] EMERGENCY DEPARTMENT Observed: 08/13/2018 Status: F Source: HESTER SUMMARY 4:01 PM REPOSITORY [facility] Medical Records Department [address] [place] [address] Emergency Department Summary 08/13/18 1517 MR#: [id number] Acct: [id number] Name: MARIA G DILLON Rep #: [id number] : 1945 72 From: Ruben Escamilla MD PCP: Laney Horvath DO Status: REG ER - ER Visit Summary Date of Service: 08/13/18 Chief Complaint: Abnormal labs History of Present Illness: The patient is a 72 F with low hemoglobin. The patient had a hemoglobin of 7.2 yesterday. She was sent from her nursing facility for transfusion. She is DNR Comfort [facility] only. Patient has skin ulcers to her shins. She gets dressing changes. She has occasional bleeding but no other bleeding. She is not on blood thinners. Physical Examination: Afebrile and vital signs unremarkable. Patient has ulcers to her bilateral shins, worse on the right side, dressed. Neurovascular intact distally. Heart regular. Lungs clear. Abdomen soft. Test Results: Hemoglobin 7.6. Metabolic panel and coags unremarkable. Emergency Department Course and Treatment: After discussion with the patient, 2 units of packed red cells were ordered. Will transfuse. I called the hospitalist to admit the patient. They asked that we transfuse the patient in the emergency department and then discharged back to her facility. Patient would also like this. Hospitalist also communicated with the patient's primary doctor. No further orders. Treatment Plan: As above Disposition: Discharge Impression: 1. Anemia 2. Transfusion of red cells This note was generated with [employer] dictation software. It may contain incorrect words, spelling, and punctuation that were not noted in review of the chart prior to signing ED Disposition - Plan for ED Patient: Chief Complaint: Abn Labs Referrals: Laney Horvath DO [Primary Care Provider] - What to do if you have Problems For any increased pain, shortness of breath, bleeding, nausea or vomiting, chest pain, or any unexpected problems, contact your Primary Care Provider. Call [employer] ([phone]) or report to the closest Emergency Room. Call 911 if necessary. 01/02/19 1601 <Electronically signed by Ruben Escamilla MD> Date Ruben Escamilla MD Cosigner Signature (If Indicated): Date CC: Laney Horvath DO DISCHARGE INSTRUCTION Observed: 08/13/2018 Status: F Source: BOBBY 4:01 PM [facility] REPOSITORY [facility] Medical Records Department [address] [facility] [place] [address] Discharge Instruction 08/13/18 1520 MR#: [id number] Acct: [id number] Name: MARIA G DILLON Rep #: [id number] : 1945 72 From: Ruben Escamilla MD PCP: Laney Horvath DO Status: REG ER ED Disposition - Plan for ED Patient: Chief Complaint: Abn Labs Instructions: ED Anemia Type Not Specified What to do if you have Problems For any increased pain, shortness of breath, bleeding, nausea or vomiting, chest pain, or any unexpected problems, contact your Primary Care Provider. Call [facility] ([phone]) or report to the closest Emergency Room. Call 911 if necessary. 08/13/181600 <Electronically signed by Ruben Escamilla MD> Date Ruben Escamilla MD Cosigner Signature (If Indicated): Date CC: Laney Horvath DO CBC W/DIFF, AUTOMATED Collected: 08/13/2018 Status: F Source: BOBBY 2:20 PM [facility] REPOSITORY TYPE CODE TESTS RESULT OUT OF RANGE REFERENCE UNITS LAB L100.1000 4.4-11.0 K/mm3 Normal WBC 4.9 LAB L100.1200 4.2-5.4 M/mm3 Low RBC 3.07 LAB L100.1300 12.0-15.0 g/dl Low HGB 7.6 LAB L100.1400 37-47 % Low HCT 24.8 LAB L100.1500 81-99 fL Low MCV 80.8 LAB L100.1600 27.0-32.0 pg Low MCH 24.8 LAB L100.1700 32-36 g/gl Low MCHC 30.6 LAB L100.1810 11.6-14.6 % High RDW CV 16.3 LAB L100.1820 35.1-43.9 fl High RDW SD 48.3 LAB L100.1900 150-450 K/mm3 Normal PLT 241 LAB L100.2000 6.2-12.0 fl Normal MPV 7.3 LAB L100.2100 47-70 % High NEUT% 80.3 LAB L100.2200 19-41 % Low LY% 9.5 LAB L100.2300 0-10 % Normal MONO% 8.2 LAB L100.2400 0-5 % Normal EO% 1.4 LAB L100.2500 0-1 % Normal BASO% 0.4 LAB L100.2550 0.0-0.9 % Normal IM GRAN % 0.200 Result Comment: IG% - Immature Granulocytes (promyelocytes, myelocytes and metamyelocytes) > 1% indicates that a LEFT SHIFT is Present. LAB L100.2620 2.0-7.7 X10 3/uL Normal Absolute Neut 3.9 LAB L100.2720 0.83-4.51 X10 3/ul Low Absolute Lymph 0.46 Performed By: #### L100.0100 #### [facility] [address] [place], [address] BASIC METABOLIC Collected: 08/13/2018 Status: F Source: BOBBY PROFILE (BMP) 2:20 PM REPOSITORY TYPE CODE TESTS RESULT OUT OF RANGE REFERENCE UNITS LAB L501.0100 74-106 mg/dL Normal GLU 86 Result Comment: Please note revised GLUCOSE reference range effective 2017. LAB L501.1000 7-18 mg/dL Normal BUN 14 LAB L501.1100 0.55-1.02 mg/dL Normal CREAT,SERUM 0.63 Result Comment: The validity of the calculated GFR AND GFRAA in patients over 70 years has not been determined. Clinical correlation is essential. LAB L501.1110 >60 mL/min Normal EST GFR 98 Result Comment: Non- GFR Calc LAB L501.1115 >60 mL/min Normal EST GFR - AA 119 Result Comment: GFR Calc LAB L501.1255 ml/min Normal Estimated CRCL 38.94 LAB L501.1300 10-20 RATIO High BUN/CRE 22.1 LAB L501.2200 8.5-10 mg/dL Low .1 CA 8.3 LAB L501.5300 136-14 mmol/L Normal 5 NA 136 LAB L501.5600 3.5-5. mmol/L Normal 1 K 4.0 LAB L501.5900 98-107 mmol/L Normal CL 101 LAB L501.6100 21.0-3 mmol/L Normal 2.0 CO2 25.0 LAB L501.6200 5-15 Normal GAP 10 Performed By: #### L500.2500 #### [facility] [address] [place], [address] PROTHROMBIN TIME W/INR Collected: 08/13/2018 Status: F Source: HESTER 2:20 PM REPOSITORY TYPE CODE TESTS RESULT OUT OF RANGE REFERENCE UNITS LAB L300.4150 11.7-14.9 SECONDS High PROTIME 16.9 LAB L300.4200 Normal INR 1.4 Performed By: #### L300.3900, L300.4310 #### [facility] [address] [place], [address] PARTIAL THROMBOPLAST Collected: 08/13/2018 Status: F Source: HESTER TIME 2:20 PM REPOSITORY TYPE CODE TESTS RESULT OUT OF REFERENCE UNITS RANGE LAB L300.4310 24.1-36.2 Seconds High PTT 41.7 Performed By: #### L300.3900, L300.4310 #### [facility] [address] [place], [address] TYPE AND SCREEN Collected: 08/13/2018 Status: F Source: BOBBY 2:20 PM REPOSITORY Order Comment: CMV NEG? N Number of units to transfuse: 2 Is there a >20% drop in pt's BP? N Is the pt's CVP (central venous pressure) <3 cm/H2O? N Is the EBL >/= 1000ml in adults or >/= 12ml/kg in children? N Is there an orthostatic change in pt's BP(SBP drop >10mmHg)? N Is pt's HR > 100 bpm? N Reason for Ordering Blood: Acute Are the blood/blood products to be transfused? Y Is the patient having/had surgery? N CMV NEG?* N Give When? When Ready Irradiated? N Leukodepleted? Y Reason for Type AND Screen/Red Cells: ANEMIA TYPE CODE TESTS RESULT OUT OF RANGE REFERENCE UNITS LAB B10.0800 O Normal BLOOD TYPE GEL POSITIVE LAB B100.4000 Normal Antibody NEGATIVE Screen Performed By: #### B101.7450 #### [facility] [address] [place], [address] Collected: 08/13/2018 Status: F Source: HESTER 2:20 PM REPOSITORY TYPE CODE TESTS RESULT OUT OF REFERENCE UNITS RANGE LAB U100.0000 [id number] TRANSFUSED PRODUCT: T AND S with Crossmatch, Red Cells COUNT: 2 Performed By: #### U100.0000 #### Non-[facility] - refer to report for specific site CBC-COMPLETE BLOOD CNT Collected: 08/12/2018 Status: F Source: BOBBY NO DIFF 1:25 PM REPOSITORY TYPE CODE TESTS RESULT OUT OF RANGE REFERENCE UNITS LAB L100.1000 4.4-11.0 K/mm3 Normal WBC 4.9 LAB L100.1200 4.2-5.4 M/mm3 Low RBC 2.91 LAB L100.1300 12.0-15.0 g/dl Low HGB 7.2 LAB L100.1400 37-47 % Low HCT 23.9 LAB L100.1500 81-99 fL Normal MCV 82.1 LAB L100.1600 27.0-32.0 pg Low MCH 24.7 LAB L100.1700 32-36 g/gl Low MCHC 30.1 LAB L100.1810 11.6-14.6 % High RDW CV 16.2 LAB L100.1820 35.1-43.9 fl High RDW SD 49.4 LAB L100.1900 150-450 K/mm3 Normal PLT 245 LAB L100.2000 6.2-12.0 fl Normal MPV 7.5 Performed By: #### L100.0500 #### [facility] [address] [place], [address] BASIC METABOLIC Collected: 08/12/2018 Status: F Source: BOBBY PROFILE (BMP) 1:25 PM REPOSITORY Order Comment: NOT FASTING TYPE CODE TESTS RESULT OUT OF RANGE REFERENCE UNITS LAB L501.0100 74-106 mg/dL Normal GLU 87 Result Comment: Please note revised GLUCOSE reference range effective 2017. LAB L501.1000 7-18 mg/dL Normal BUN 18 LAB L501.1100 0.55-1.02 mg/dL Normal CREAT,SERUM 0.72 Result Comment: The validity of the calculated GFR AND GFRAA in patients over 70 years has not been determined. Clinical correlation is essential. LAB L501.1110 >60 mL/min Normal EST GFR 85 Result Comment: Non- GFR Calc LAB L501.1115 >60 mL/min Normal EST GFR - AA 103 Result Comment: GFR Calc LAB L501.1300 10-20 RATIO High BUN/CRE 25.0 LAB L501.2200 8.5-10.1 mg/dL Low CA 7.8 LAB L501.5300 136-145 mmol/L NA Normal 136 LAB L501.5600 3.5-5.1 mmol/L K Normal 4.5 LAB L501.5900 98-107 mmol/L CL Normal 101 LAB L501.6100 21.0-32.0 mmol/L Normal CO2 27.0 LAB L501.6200 5-15 Normal GAP 8 Performed By: #### L500.2500 #### [facility] [address] [place], [address] Observed: 08/06/2018 Status: F Source: BOBBY CULTURE, DEEP WOUND 12:00 PM REPOSITORY Results called on 08/12/18 by WINDY to WOUND CENTER NURSE LINE Comments: RIGHT POST. CALF Gram Stain Gram Stain 4+ Gram negative rods 1+ Gram positive rods 1+ Gram positive cocci 4+ Red Blood Cells Wound Culture RESULTS CALLED TO WC/NURSE LINE 08/09/18 0722 Ariana Olivier. Copy of report sent to Infection Control Printer [id number] 08/09/18 0723 DCAJION. ORGANISM 1: Pseudomonas aeroginosa Amount Growth 3+ ORGANISM 2: Acinetobacter baumannii Amount Growth 3+ ORGANISM 3: Meth. resistant Staph. aureus Amount Growth 3+ Pseudomonas aeroginosa: REACTION Cefepime $ 2 S Ceftazidime *NF 4 S Ciprofloxacin $ <=0.25 S Gentamicin $ <=1 S Imipenem *NF 2 S Levofloxacin $ 1 S Piperacillin/Tazobactam $$ 8 S Tobramycin $ <=1 S (NF) indicates non-formulary drug at [facility]. Approval by Infectious Disease Specialist required before non-formulary drugs may be ordered and/or dispensed. Acinetobacter baumannii: REACTION Cefepime $ 4 S Ceftazidime *NF 4 S Ceftriaxone $ 16 I Ciprofloxacin $ <=0.25 S Gentamicin $ <=1 S Imipenem *NF <=0.25 S Levofloxacin $ <=0.12 S Tobramycin $ <=1 S Trimethoprim/Sulfametho $ <=20 S (NF) indicates non-formulary drug at [facility]. Approval by Infectious Disease Specialist [...] <=0.5 S (NF) indicates non-formulary drug at [facility]. Approval by Infectious Disease Specialist required before non-formulary drugs may be ordered and/or dispensed. * CLSI guidelines does not recommend testing of cephalosporins. This interpretation is deduced from Beta-lactam/penicillin results. Cult, Anaerobic Studies Have Confirmed That B. Fragilis Group are Routinely Susceptible to: Metronidazole, Piperacillin/Tazobactam, Tigecycline, Ertapenem, Imipenem, Meropenem and variable in resistance to: Clindamycin, Moxifloxacin, Cefoxitin and Ampicillin/Sulbactam. Copy of report sent to Infection Control Printer [id number] 08/12/18 0653 WINDY. ORGANISM 1: Bacteroides fragilis Performed By: #### M100.1500 #### [facility] [address] [facility] [place], [address] OPERATIVE REPORT Observed: 07/13/2018 Status: F Source: HESTER 1:11 PM REPOSITORY [facility] Medical Records Department [address] [place] [address] Operative Report 07/08/18 2224 MR#: [id number] Acct: [id number] Name: MARIA G DILLON Rep #: [id number] : 1945 72 From: Arpita Interiano DPM PCP: Laney Horvath DO Status: [facility] [place] [facility] [place] List (1) Delayed wound healing Status: [...] Procedure: 07/08/18 - Surgeon: Arpita Interiano DPM. Check Writing Machine Operator: Maik Savage PGY1 Pre-Operative Diagnosis: chronic right [...] nylon, 2000 mg amniofill, adaptic Complications: None conservation scientist: none Type of Anesthesia:: Local - Preoperative: [...] with the primary care provider at the [facility]. Special measures were applied to apply a special fluid repellent dressing to prevent further wound contamination from her urinary incontinence. Arpita Interiano DPM, [facility] 07/13/18 1311 <Electronically signed by Arpita Interiano DPM> Date Arpita Interiano DPM CC: Arpita Interiano DPM; Laney Horvath DO Signed CBC-COMPLETE BLOOD CNT Collected: 07/12/2018 Status: F Source: BOBBY NO DIFF 6:35 AM REPOSITORY TYPE CODE TESTS RESULT OUT OF [...] MPV 7.9 Performed By: #### L100.0500 #### [facility] [address] [place], [address] BASIC METABOLIC Collected: 07/12/2018 Status: F Source: HESTER PROFILE (BMP) 6:35 AM REPOSITORY TYPE CODE TESTS RESULT OUT OF [...] GAP 7 Performed By: #### L500.2500 #### [facility] [address] [place], [address] HEMOGLOBIN A1C Collected: 07/10/2018 Status: F Source: HESTER 6:55 AM REPOSITORY Order Comment: ROOM 133 TYPE CODE TESTS RESULT OUT OF RANGE REFERENCE UNITS LAB L501.9985 4.2-6.3 % Normal HGB A1C 5.8 Performed By: #### L501.9985 #### [facility] [address] [place], [address] HEMOGLOBIN A1C Collected: 07/09/2018 Status: F Source: HESTER 6:50 AM REPOSITORY Order Comment: 133 TYPE CODE TESTS RESULT OUT OF RANGE REFERENCE UNITS LAB L501.9985 4.2-6.3 % Normal HGB A1C 5.9 Performed By: #### L501.9985 #### [facility] [address] [place], [address] DISCHARGE INSTRUCTION Observed: 07/08/2018 Status: F Source: HESTER 5:10 PM REPOSITORY [facility] Medical Records Department [address] [place] [address] Instructions for Home/Discharge Instructions 07/08/18 1708 MR#: [id number] Acct: [id number] Name: MARIA G DILLON Britton Rep #: [id number] : 1945 72 From: Arpita Interiano DPM PCP: Laney Horvath DO [place] [facility] [place] Diet: No Restrictions Keep extremity elevated [...] Up With: Arpita Interiano DPM When: next Sat at wound healing center Proposed Discharge Date: 07/08/18 07/08/18 1710 <Electronically signed by Arpita Interiano DPM> Date Arpita Interiano DPM CC: Laney Horvath DO TYPE AND SCREEN Collected: 07/08/2018 Status: F Source: BOBBY 2:29 PM REPOSITORY Order Comment: Reason for Type AND Screen/Red Cells: SURGERY Surgery Date: 07/08/18 Time: 1430 Other - use comments: UNKNOWN - ORDER DID NOT COME THRU Type of Surgery: OTHER TYPE CODE TESTS RESULT OUT OF RANGE REFERENCE UNITS LAB B10.0800 O Normal BLOOD TYPE GEL POSITIVE LAB B100.4000 Normal Antibody NEGATIVE Screen Performed By: #### B101.7450 #### [facility] [address] [place], [place], [address] CBC-COMPLETE BLOOD CNT Collected: 06/24/2018 Status: F Source: BOBBY NO DIFF 6:20 AM REPOSITORY Order Comment: 133 TYPE CODE TESTS [...] MPV 8.5 Performed By: #### L100.0500 #### [facility] [address] [place], [address] BASIC METABOLIC Collected: 06/24/2018 Status: F Source: BOBBY PROFILE (BMP) 6:20 AM REPOSITORY Order Comment: 133 TYPE CODE TESTS [...] GAP 7 Performed By: #### L500.2500 #### [facility] [address] [facility] [place], [address] DISCHARGE SUMMARY Observed: 06/18/2018 Status: F Source: HESTER 2:49 PM REPOSITORY [facility] Medical Records Department [address] [place] [address] Discharge Summary 06/17/18 1325 MR#: [id number] Acct: [id number] Name: WILMAMARIA G K Rep #: [id number] : 1945 72 From: Meenu Nowak MD PCP: Laney Horvath DO Status: DIS IN Y [place] [facility] [place] [id number] Discharge Date and Diagnosis Date of Admission: [...] Service support , Consultations 06/14/18 15:05 Consult: Onc/Wound/doubler helper Routine Comment: Operations: None Procedures: None Summary [...] She therefore opted to go to a long term. Patient was accepted at the [facility] and was discharged there on 06/17/2018. She [...] Instructions: Understanding Urinary Tract Infections (UTIs) Disposition: Shelter facility Minutes spent on discharge:: 40 Patient Condition:: Stable Medical Necessity - Tobacco Use Smoking Status: Never smoker Meaningful Use Info Meaningful Use Diagnoses (Choose all that apply): None applicable Code Visit Inpatient E AND M: 72665 Disch Hosp 06/18/18 1449 <Electronically signed by Meenu Nowak MD> Date Meenu Nowak MD Cosigner Signature (if applicable): Date CC: Laney Horvath DO; Meenu Nowak MD Signed VENOUS DUPLEX UPPER Observed: 06/17/2018 Status: F Source: HESTER EXTREMITY 6:03 PM REPOSITORY [facility] Cardiovascular Services [address] [place] [address] Venous Duplex US, Unilateral 06/17/18 1616 MR#: [id number] Acct: [id number] Name: MARIA G DILLON Rep #: [id number] : 1945 72 From: Oscar Wadsworth MD [...] Date Dictated: 06/17/18 1616 Date Transcribed: 06/17/181802 Analysis Lead: Signed BEDSIDE GLUCOSE Collected: 06/17/2018 Status: F Source: HESTER 4:40 PM REPOSITORY TYPE CODE TESTS RESULT OUT OF REFERENCE UNITS RANGE LAB L501.080 70-110 mg/dL High BEDSIDE GLU 120 Result Comment: MANAGEMENT OF PATIENT CARE PER NURSING PROTOCOL Performed By: #### L501.080 #### [facility] Point of Care [address] [facility] [place] [address] HUMERUS MIN 2 VIEWS Observed: 06/17/2018 Status: F Source: HESTER 1:43 PM REPOSITORY [facility] Imaging Services [address] [place] [address] Humerus min 2 Views MR#: [id number] Acct: [id number] Name: MARIA G DLILON Rep #: [id number] : 1945 F 72 From: Cortney Stack MD PCP: Laney Horvath DO Status: ADM IN Study: Humerus min 2 Views Date of Exam: 06/17/18 Exam# [id number] Ordering Dr: Meenu Nowak MD STUDY: X-RAY [...] Stack MD at 15:38 EST Tel Direct: [phone], Service support , CC: Laney Horvath DO; Meenu Nowak MD Analysis Lead: Signed SHOULDER MIN 2 VIEWS Observed: 06/17/2018 Status: F Source: HESTER 1:43 PM REPOSITORY [facility] Imaging Services [address] [place] [address] [place] [address] Shoulder min 2 Views MR#: [id number] Acct: [id number] Name: MARIA G DILLON Rep #: [id number] : 1945 F 72 From: Cortney Stack MD PCP: Laney Horvath DO Status: ADM IN Study: Shoulder min 2 Views Date of Exam: 06/17/18 Exam# [id number] Ordering Dr: Meenu Nowak MD STUDY: X-RAY [...] Stack MD at 15:44 EST Tel Direct: [phone], Service support , CC: Laney Horvath DO; Meenu Nowak MD Analysis Lead: Signed CONSULTATION Observed: 06/17/2018 Status: F Source: HESTER 1:34 PM REPOSITORY [facility] Medical Records Department [address] [place] [address] Consultation 06/17/18 1321 MR#: [id number] Acct: [id number] Name: MARIA G DILLON Rep #: [id number] : 1945 72 From: Arpita Interiano DPM PCP: Laney Horvath DO Status: ADM IN [place] [facility] [place] [id number] Problem List (1) Chronic ulcer of right [...] had her leg ulcer dressing changed by home theater specialist nurseKaterin. Past Medical History Past Medical History (Chronic [...] knee arthroplasty - bilateral Psychiatric History: Anxiety SENIOR SOFTWARE ANALYST History: No pertinent SENIOR SOFTWARE ANALYST history Smoking Status: Never smoker Alcohol: None [...] Aquacel AG dressing changes and cleansing with home theater specialist. I recommend she keeps additional pressure [...] for urinary tract infection at this time. [facility] placement is pending. Upon discharge from the medical surgical floor, whether it is to the transitional care unit or outside long term facility, I am to reschedule her debridement and application of advanced wound care product procedure in the operating room. She will need medical clearance for this procedure under MAC and I recommend waiting until she is medically stable. Please not hesitate to call if you have any questions. Arpita Interiano DPM, [facility] [place] [phone] 06/17/18 1334 <Electronically signed by Arpita Interiano DPM> Date Arpita Interiano DPM Cosigner Signature (if applicable): Date CC: Laney Horvath DO Signed TRANSFER TO EXTENDED Observed: 06/17/2018 Status: F Source: [facility] 1:25 PM REPOSITORY [facility] Medical Records Department [address] [place] [address] Transfer to Extended Care MR#: [id number] Acct: [id number] Name: MARIA G DILLON Rep #: [id number] : 1945 72 From: Meenu Nowak MD PCP: Laney Horvath DO Status: ADM IN MARIA G DILLON (Patient) (Health Ins. Claim No.) (Day of Discharge to Facility) Certification of patient admission REQUIRED AT TIME OF ADMISSION. I CERTIFY THAT POST-HOSPITAL ECF SERVICES ARE REQUIRED TO BE GIVEN ON AN IN-PATIENT BASIS BECAUSE OF THE ABOVE NAMED PATIENT'S NEED FOR CHCF CARE ON A CONTINUING BASIS FOR THE CONDITION(S) FOR WHICH HE/SHE WAS RECEIVING IN-PATIENT HOSPITAL SERVICES PRIOR TO HIS/HER TRANSFER TO THE [facility]. 06/17/18 1325 <Electronically signed by Meenu Nowak [...] Nowak MD> Date Meenu Nowak MD CC: Laneyanalia Horvath DO Signed BEDSIDE GLUCOSE Collected: 06/17/2018 Status: F Source: HESTER 11:36 AM REPOSITORY TYPE CODE TESTS RESULT OUT OF REFERENCE UNITS RANGE LAB L501.080 70-110 mg/dL High BEDSIDE GLU 125 Result Comment: MANAGEMENT OF PATIENT CARE PER NURSING PROTOCOL Performed By: #### L501.080 #### [facility] Point of Care [address] [place] [address] CBC W/DIFF, AUTOMATED Collected: 06/17/2018 Status: F Source: HESTER 6:50 AM REPOSITORY TYPE CODE TESTS RESULT OUT OF [...] Lymph 0.71 Performed By: #### L100.0100 #### [facility] [address] [facility] [place], [place], [address] BASIC METABOLIC Collected: 06/17/2018 Status: F Source: HESTER PROFILE (BMP) 6:50 AM REPOSITORY TYPE CODE TESTS RESULT OUT OF [...] GAP 9 Performed By: #### L500.2500 #### [facility] [address] [place], [address] BEDSIDE GLUCOSE Collected: 06/17/2018 Status: F Source: BOBBY 6:36 AM REPOSITORY TYPE CODE TESTS RESULT OUT OF RANGE REFERENCE UNITS LAB L501.080 70-110 mg/dL Normal BEDSIDE GLU 95 Result Comment: MANAGEMENT OF PATIENT CARE PER NURSING PROTOCOL Performed By: #### L501.080 #### [facility] Point of Care [address] [place] [address] BEDSIDE GLUCOSE Collected: 06/16/2018 Status: F Source: BOBBY 8:33 PM REPOSITORY TYPE CODE TESTS RESULT OUT OF REFERENCE UNITS RANGE LAB L501.080 70-110 mg/dL High BEDSIDE GLU 138 Result Comment: MANAGEMENT OF PATIENT CARE PER NURSING PROTOCOL Performed By: #### L501.080 #### [facility] Point of Care [address] [place] [address] BEDSIDE GLUCOSE Collected: 06/16/2018 Status: F Source: BOBBY 4:26 PM REPOSITORY TYPE CODE TESTS RESULT OUT OF REFERENCE UNITS RANGE LAB L501.080 70-110 mg/dL High BEDSIDE GLU 160 Result Comment: MANAGEMENT OF PATIENT CARE PER NURSING PROTOCOL Performed By: #### L501.080 #### [facility] Point of Care [address] [place] [address] 12 LEAD ELECTROCARDIOGRAM Observed: 06/16/2018 Status: F Source: HESTER 3:26 PM REPOSITORY [facility] Cardiovascular Services [address] [place] [address] 12 Lead EKG 06/14/18 1214 MR#: [id number] Acct: [id number] Name: MARAI G DILLON Rep #: [id number] : 1945 72 From: Jaylan Dunbar MD Attending Dr: Meenu Nowak MD Status: ADM IN Ordering Dr: Quin Pelaez DO Date: 06/14/18 Location: [facility] Sex: F C Admitted: 06/14/18 Test Reason : WEAKNESS Blood Pressure : / mmHG Vent. Rate : 083 BPM Atrial Rate : 083 BPM P-R Int : 178 ms QRS Dur : 094 ms QT Int : 362 ms P-R-T Axes : 012 007 032 degrees QTc Int : 425 ms Normal sinus rhythm Normal ECG Confirmed by JAYLAN DUNBAR MD ([id number]), editor greeting card ABBI BLANK ([id number]) on 06/16/2018 3:26:03 PM Referred By: PAM Confirmed By:JAYLAN DUNBAR MD 06/16/18 1526 Date Jaylan Dunbar MD CC: Laney Horvath DO; Meenu Nowak MD; Quin Pelaez DO Signed BEDSIDE GLUCOSE Collected: 06/16/2018 Status: F Source: HESTER 11:09 AM REPOSITORY TYPE CODE TESTS RESULT OUT OF REFERENCE UNITS RANGE LAB L501.080 70-110 mg/dL High BEDSIDE GLU 138 Result Comment: MANAGEMENT OF PATIENT CARE PER NURSING PROTOCOL Performed By: #### L501.080 #### [facility] Point of Care [address] [place] [address] CBC W/DIFF, AUTOMATED Collected: 06/16/2018 Status: F Source: HESTER 7:08 AM REPOSITORY TYPE CODE TESTS RESULT OUT OF [...] - LYMPHOPENIA. Performed By: #### L100.0100 #### [facility] [address] [place], [address] BASIC METABOLIC Collected: 06/16/2018 Status: F Source: HESTER PROFILE (BMP) 7:08 AM REPOSITORY TYPE CODE TESTS RESULT OUT OF [...] GAP 10 Performed By: #### L500.2500 #### [facility] [address] [facility] [address] IRON+IRON BINDING Collected: 06/16/2018 Status: F Source: BOBBY CAPACITY 7:08 AM REPOSITORY TYPE CODE TESTS RESULT OUT OF REFERENCE UNITS RANGE LAB L503.6075 250-450 ug/dL Low TIBC 149 LAB L503.6150 50-170 ug/dL Low IRON 16 LAB L503.6250 15.0-55.0 % Low IRON SATURATION 10.7 Performed By: #### L503.6030, L503.6550 #### [facility] [address] [place], [address] FERRITIN Collected: 06/16/2018 Status: F Source: HESTER 7:08 AM REPOSITORY TYPE CODE TESTS RESULT OUT OF REFERENCE UNITS RANGE LAB L503.6550 8-252 ng/mL High FERRITIN 262 Performed By: #### L503.6030, L503.6550 #### [facility] [facility] [place], [address] BEDSIDE GLUCOSE Collected: 06/16/2018 Status: F Source: BOBBY 6:35 AM REPOSITORY TYPE CODE TESTS RESULT OUT OF REFERENCE UNITS RANGE LAB L501.080 70-110 mg/dL High BEDSIDE GLU 113 Result Comment: MANAGEMENT OF PATIENT CARE PER NURSING PROTOCOL Performed By: #### L501.080 #### [facility] Point of Care [address] [facility] [place] [address] BEDSIDE GLUCOSE Collected: 06/15/2018 Status: F Source: BOBBY 9:22 PM REPOSITORY TYPE CODE TESTS RESULT OUT OF REFERENCE UNITS RANGE LAB L501.080 70-110 mg/dL High BEDSIDE GLU 149 Result Comment: MANAGEMENT OF PATIENT CARE PER NURSING PROTOCOL Performed By: #### L501.080 #### [facility] Point of Care [address] [place], [place] [address] BEDSIDE GLUCOSE Collected: 06/15/2018 Status: F Source: BOBBY 3:50 PM REPOSITORY TYPE CODE TESTS RESULT OUT OF REFERENCE UNITS RANGE LAB L501.080 70-110 mg/dL High BEDSIDE GLU 206 Result Comment: MANAGEMENT OF PATIENT CARE PER NURSING PROTOCOL Performed By: #### L501.080 #### [facility] Point of Care [address] [facility] [place], [place] [address] HH, HEMOGLOBIN AND Collected: 06/15/2018 Status: F Source: BOBBY HEMATOCRIT 12:10 PM REPOSITORY TYPE CODE TESTS RESULT OUT OF RANGE REFERENCE UNITS LAB L100.1300 12.0-15.0 g/dl Low HGB 8.2 LAB L100.1400 37-47 % Low HCT 26.0 Performed By: #### L100.0600 #### [facility] [address] [place] [address]. [place], [place], [address] BEDSIDE GLUCOSE Collected: 06/15/2018 Status: F Source: BOBBY 11:10 AM REPOSITORY TYPE CODE TESTS RESULT OUT OF RANGE REFERENCE UNITS LAB L501.080 70-110 mg/dL Normal BEDSIDE GLU 107 Result Comment: MANAGEMENT OF PATIENT CARE PER NURSING PROTOCOL Performed By: #### L501.080 #### [facility] Point of Care [address] [place] [address] CBC W/DIFF, AUTOMATED Collected: 06/15/2018 Status: F Source: BOBBY 6:35 AM REPOSITORY TYPE CODE TESTS RESULT OUT OF [...] Normal 2+ Performed By: #### L100.0100 #### [facility] [address] [place], [place], [address] BASIC METABOLIC Collected: 06/15/2018 Status: F Source: BOBBY PROFILE ([facility]) 6:35 AM REPOSITORY TYPE CODE TESTS RESULT OUT OF [...] GAP 9 Performed By: #### L500.2500 #### [facility] [address] [facility] [place], [address] HEMOGLOBIN A1C Collected: 06/15/2018 Status: F Source: HESTER 6:35 AM REPOSITORY Order Comment: Comments: as add on test TYPE CODE TESTS RESULT OUT OF RANGE REFERENCE UNITS LAB L501.9985 4.2-6.3 % Normal HGB A1C 6.3 Performed By: #### L501.9985 #### [facility] [address] [facility] [place], [address] HISTORY AND PHYSICAL Observed: 06/14/2018 Status: F Source: BOBBY EXAM 5:22 PM REPOSITORY [facility] Medical Records Department [address] [place] [address] History and Physical 06/14/18 1354 MR#: [id number] Acct: [id number] Name: MARIA G DILLON Rep #: [id number] : 1945 72 From: Nicolas REEDER PCP: Laney Horvath DO Status: ADM IN Y [place] [facility] [place] [id number] <Nicolas Rg - Last Filed: 06/14/18 13:54> [...] which she follows Dr. Interiano at the wound center, parkinsons, diet controlled DMt2, HTN, who [...] knee arthroplasty - bilateral Psychiatric History: Anxiety SENIOR SOFTWARE ANALYST History: No pertinent SENIOR SOFTWARE ANALYST history Smoking Status: Never smoker Review of [...] rocephin. Urine culture sent. Cxr neg. 2. СВЕТЛАНА 2/2 above - IV NaCl 3. Lymphedema [...] are pending area Inpatient E AND M: [id number] Init Hosp L3 06/14/18 1406 <Electronically signed by Nicolas REEDER> Date Nicolas REEDER 06/14/18 1722<Electronically signed by Rolando Zuniga MD> Cosigner Signature: Date (if applicable) Rolando Zuniga MD CC: VARINDER Rg; Laney Horvath DO; Rolando Zuniga MD Signed EMERGENCY DEPARTMENT Observed: 06/14/2018 Status: F Source: [place] SUMMARY 1:14 PM REPOSITORY [facility] Medical Records Department [address] [place] [address] Emergency Department Summary 06/14/18 1312 MR#: [id number] Acct: [id number] Name: MARIA G DILLON Rep #: [id number] : 1945 72 From: Quin Pelaez DO [...] leg wounds] This note was generated with Minefold dictation software. It may contain incorrect words, spelling, and punctuation that were not noted in review of the chart prior to signing ED Disposition - Plan for ED Patient: Chief Complaint: Weakness Referrals: Laney Horvath, DO [Primary Care Provider] - What to do if you have Problems For any increased pain, shortness of breath, bleeding, nausea or vomiting, chest pain, or any unexpected problems, contact your Primary Care Provider. Call [facility] ([phone]) or report to the closest Emergency Room. Call 911 if necessary. 06/14/18 1314 <Electronically signed by Quin Pelaez DO> Date Quin Pelaez DO Cosigner Signature (If Indicated): Date CC: Laney Horvath DO URINALYSIS, COMPLETE Collected: 06/14/2018 Status: F Source: BOBBY 12:37 PM REPOSITORY Order Comment: Order Date: 06/14/18 How [...] MUCUS, URINE Performed By: #### L400.0001 #### [facility] [address] [place], [address] Observed: 06/14/2018 Status: F Source: [place] CULTURE, URINE 12:37 PM REPOSITORY Urine Culture ORGANISM 1: Klebsiella pneumoniae sp pneum Severn Count >100,000 ORGANISM 2: Escherichia coli [place]n Count 80,000-100,000 Klebsiella pneumoniae sp pneum: REACTION [...] <=20 S (NF) indicates non-formulary drug at [facility]. Approval by Infectious Disease Specialist [...] <=20 S (NF) indicates non-formulary drug at [facility]. Approval by Infectious Disease Specialist required before non-formulary drugs may be ordered and/or dispensed. Performed By: #### M100.0650 #### [facility] [address] [place], [address] CBC W/DIFF, AUTOMATED Collected: 06/14/2018 Status: F Source: [place] 11:55 AM REPOSITORY TYPE CODE TESTS RESULT OUT OF [...] Lymph 0.61 Performed By: #### L100.0100 #### [facility] [address] [place], [place], [address] COMPREHENSIVE METABOLIC Collected: 06/14/2018 Status: F Source: [facility] 11:55 AM REPOSITORY TYPE CODE TESTS RESULT OUT OF [...] 12 Performed By: #### L500.4050, L501.4010 #### [facility] [address] [place], [address] TROPONIN-I Collected: 06/14/2018 Status: F Source: [place] 11:55 AM REPOSITORY TYPE CODE TESTS RESULT OUT OF RANGE REFERENCE UNITS LAB L501.4010 <0.045 ng/mL Normal < 0.015 TROPONIN-I Result Comment: TROPONIN-I EXPECTED VALUES <0.045 Negative 0.045 - 0.590 Consistent with Cardiac Damage > OR = 0.600 Critical Value Not every elevated troponin is indicative of HI. These values should be used with clinical judgement in examining the patient's clinical picture for diagnosis. To establish a diagnosis of HI versus myocardial injury, there must be a demonstrated rise and/or fall in the troponin values, in addition to ischemic symptoms, EKG changes, new regional wall motion abnormality, and/or angiographical evidence. PLEASE NOTE: REFERENCE RANGES EDITED 17 Performed By: #### L500.4050, L501.4010 #### [facility] [address] [place], [place], [address] LACTIC ACID Collected: 06/14/2018 Status: F Source: [place] 11:55 AM REPOSITORY Order Comment: Yes/No query for Sepsis Lactate Rule Y TYPE CODE TESTS RESULT OUT OF RANGE REFERENCE UNITS LAB L503.6005 0.4-2.0 mmol/L Normal LACTIC ACID 1.1 Performed By: #### L503.6005 #### [facility] [address] [place], [address] Observed: 06/14/2018 Status: F Source: BOBBY CULTURE, BLOOD (WB) 11:55 AM REPOSITORY BC No growth in 5 days. Performed By: #### M200.1000 #### [facility] [address] [place], [address] Observed: 06/14/2018 Status: F Source: [place] CULTURE, BLOOD (WB) 11:55 AM REPOSITORY BC No growth in 5 days. Performed By: #### M200.1000 #### [facility] [address] [place], [address] CHEST 1 VIEW Observed: 06/14/2018 Status: F Source: BOBBY (PORTABLE) 11:47 AM [facility] REPOSITORY [facility] Imaging Services [address] [place] [address] Chest 1 View (Portable) MR#: [id number] Acct: [id number] Name: MARIA G DILLON Rep #: [id number] : 1945 F 72 From: Henry Khan DO PCP: Laney Horvath DO Status: REG ER Study: Chest 1 View (Portable) Date of Exam: 06/14/18 Exam# [id number] Ordering Dr: Quin Pelaez DO STUDY: X-RAY [...] CC: Laney Horvath DO; Quin Pelaez DO Analysis Lead: Signed MRSA WOUND DNA BY Collected: 04/16/2018 Status: F Source: BOBBY PCR 11:50 AM REPOSITORY Order Comment: Specimen Source? RIGHT LEG ULCER TYPE CODE TESTS RESULT OUT OF RANGE REFERENCE UNITS LAB L8200.1100 Negative Normal MRSA Negative RESULT LAB L8200.1150 Negative Normal SA RESULT NEGATIVE Performed By: #### L8200.1075 #### [facility] [address] [facility] [place], [address] Observed: 04/16/2018 Status: F Source: BOBBY CULTURE, DEEP WOUND 11:50 AM REPOSITORY Gram Stain Gram Stain No White Blood Cells No organisms seen Wound Culture There are no CLSI standards for interpretation of this Drug/Organism combination. ORGANISM 1: Corynebacterium striatum Amount Growth 1+ Cult, Anaerobic No growth in 5 days. Performed By: #### M100.1500 #### [facility] [address] [facility] [place], [address] ERYTHROCYTE SED RATE Collected: 04/16/2018 Status: F Source: BOBBY 11:35 AM REPOSITORY TYPE CODE TESTS RESULT OUT OF RANGE REFERENCE UNITS LAB L102.0000 0-30 mm/hr High SED RATE 53 Performed By: #### L101.9900, L100.0100 #### [facility] [address] [facility] [place], [address] CBC W/DIFF, AUTOMATED Collected: 04/16/2018 Status: F Source: BOBBY 11:35 AM REPOSITORY TYPE CODE TESTS RESULT OUT OF [...] 0.83 Performed By: #### L101.9900, L100.0100 #### [facility] [address] [place], [place], [address] COMPREHENSIVE METABOLIC Collected: 04/16/2018 Status: F Source: [facility] 11:35 AM REPOSITORY TYPE CODE TESTS RESULT OUT OF [...] 10 Performed By: #### L500.4050, L501.6710 #### [facility] [address] [facility] [place], [address] CRP Collected: 04/16/2018 Status: F Source: BOBBY 11:35 AM REPOSITORY TYPE CODE TESTS RESULT OUT OF RANGE REFERENCE UNITS LAB L501.6710 0.0-3.0 mg/L High 30.80 C-REACTIVE PROT Result Comment: C-Reactive Protein (CRP) provides useful information for the diagnosis, therapy and monitoring of inflammatory processes and associated diseases. For the evaluation of Relative Risk for Cardiovascular Disease, a High Sensitivity CRP (HSCRP) should be ordered. Performed By: #### L500.4050, L501.6710 #### [facility] [address] [place], [address] Observed: 03/26/2018 Status: F Source: BOBBY CULTURE, DEEP WOUND 1:30 PM REPOSITORY Gram Stain Gram Stain Rare White Blood Cells 4+ Gram negative rods 4+ Gram negative cocco bacillus Wound Culture #3 MRSA RESULTS CALLED TO WOUND CENTER NURSE LINE 03/30/18 0734 Jacklyn Partha. Copy of report sent to Infection Control Printer [id number] 03/30/18 9434 WINDY. ORGANISM 1: Enterobacter cloacae complex Amount [...] <=20 S (NF) indicates non-formulary drug at [facility]. Approval by Infectious Disease Specialist [...] >=320 R (NF) indicates non-formulary drug at [facility]. Approval by Infectious Disease Specialist [...] <=0.5 S (NF) indicates non-formulary drug at [facility]. Approval by Infectious Disease Specialist [...] 0.5 S (NF) indicates non-formulary drug at [facility]. Approval by Infectious Disease Specialist [...] 80 R (NF) indicates non-formulary drug at [facility]. Approval by Infectious Disease Specialist required before non-formulary drugs may be ordered and/or dispensed. Cult, Anaerobic Studies Have Confirmed That B. Fragilis Group are Routinely Susceptible to: Metronidazole, Piperacillin/Tazobactam, Tigecycline, Ertapenem, Imipenem, Meropenem and variable in resistance to: Clindamycin, Moxifloxacin, Cefoxitin and Ampicillin/Sulbactam. Copy of report sent to Infection Control Printer [id number] 04/01/18 2545 IESHA. RESULTS FAXED TO 04/01/18 8692 Ariana Olivier. ORGANISM 1: Bacteroides fragilis Beta Lactamase Negative Performed By: #### M100.1500 #### [facility] [address] [place], [address] LOWER EXT ARTERIAL Observed: 02/22/2018 Status: F Source: [place] STUDY 7:29 PM REPOSITORY [facility] Cardiovascular Services [address] [address] 02/22/181917 MR#: [id number] Acct: [id number] Name: MARIA G DILLON Rep #: [id number] : 1945 72 From: Riki Wiggins MD [...] DO Date Dictated: 02/22/181917 Date Transcribed: 02/22/181917 Analysis Lead: WENDI Gallo CONSULTATION Observed: 02/19/2018 Status: F Source: [place] 12:45 PM REPOSITORY [facility] Medical Records Department [address] [facility] [place] [place] [address] Consultation 02/19/18 1240 MR#: [id number] Acct: [id number] Name: MARIA G DILLON Rep #: [id number] : 1945 72 From: Oscar Rodrigez MD [...] follow as needed, d/w Dr. Interiano. 02/19/18 8555 <Electronically signed by Oscar Rodrigez MD> Date Oscar Dash Signature (if applicable): Date CC: Laney Horvath DO Signed WOUND CTR HISTORY Observed: 02/10/2018 Status: F Source: BOBBY AND PHYSICAL 5:41 PM [facility] REPOSITORY [facility] Wound Healing Center [address] [place] [address] Wound Ctr History AND Physical 02/10/18 1716 MR#: [id number] Acct: [id number] Name: MARIA G DILLON Rep #: [id number] : 1945 72 From: Riki Wiggins MD PCP: Laney Horvath DO Status: REG RCR Y Location: WC (1) Swelling of left lower extremity Status: [...] Date Recorded By Document 02/10/18 15:35 CS [id number] 02/10/18 15:47 CS WC - Nurse 2 - General Ulcer CM Notes Start: 02/10/18 15:28 Freq: Status: Active Protocol: Activity Type Activity Date Activity User E-Sign Co-Sign Detail Recorded Client Recorded Date Recorded By Document 02/10/18 16:57 JS [id number] 02/10/18 17:04 JS Wound Center Nurse 2 [Procedure/Treatment] Neurological: Cranial [...] Recorded Date Recorded By Document 02/10/18 16:57 FALGUNI [id number] 02/10/18 17:04 FALGUNI Wound Center Nurse 2 #8 [id number] CALF cluster -Time 16:57 -Correct Patient Yes [...] primary care physician has been advised. 02/10/18 8470 <Electronically signed by Riki Wiggins MD> Date Riki Wiggins MD CC: Signed CBC W/DIFF, AUTOMATED Collected: 02/05/2018 Status: F Source: BOBBY 2:30 PM REPOSITORY TYPE CODE TESTS RESULT OUT OF [...] 0.91 Performed By: #### L100.0100, L101.9900 #### [facility] [address] [place], [address] ERYTHROCYTE SED RATE Collected: 02/05/2018 Status: F Source: BOBBY 2:30 PM REPOSITORY TYPE CODE TESTS RESULT OUT OF RANGE REFERENCE UNITS LAB L102.0000 0-30 mm/hr High SED RATE 75 Performed By: #### L100.0100, L101.9900 #### [facility] [address] [place], [address] COMPREHENSIVE METABOLIC Collected: 02/05/2018 Status: F Source: [facility] 2:30 PM REPOSITORY TYPE CODE TESTS RESULT OUT OF [...] 6 Performed By: #### L500.4050, L501.6710 #### [facility] [address] [place], [address] CRP Collected: 02/05/2018 Status: F Source: [place] 2:30 PM REPOSITORY TYPE CODE TESTS RESULT OUT OF RANGE REFERENCE UNITS LAB L501.6710 0.0-3.0 mg/L High 112.00 C-REACTIVE PROT Result Comment: C-Reactive Protein (CRP) provides useful information for the diagnosis, therapy and monitoring of inflammatory processes and associated diseases. For the evaluation of Relative Risk for Cardiovascular Disease, a High Sensitivity CRP (HSCRP) should be ordered. Performed By: #### L500.4050, L501.6710 #### [facility] [address] [facility] [place], [address] HEMOGLOBIN A1C Collected: 02/05/2018 Status: F Source: [place] 2:30 PM REPOSITORY TYPE CODE TESTS RESULT OUT OF RANGE REFERENCE UNITS LAB L501.9985 4.2-6.3 % High HGB A1C 6.8 Performed By: #### L501.9985 #### [facility] [address] [facility] [place], [address] Observed: 02/05/2018 Status: F Source: [place] CULTURE, DEEP WOUND 2:00 PM REPOSITORY Comments: RIGHT LEG ULCER. Gram Stain [...] >=320 R (NF) indicates non-formulary drug at [facility]. Approval by Infectious Disease Specialist required before non-formulary drugs may be ordered and/or dispensed. Pseudomonas spp: REACTION Ceftazidime *NF 4 S Ciprofloxacin $ <=0.25 S Gentamicin $ <=1 S Imipenem *NF 1 S Levofloxacin $ 0.25 S Piperacillin/Tazobactam $$ 8 S Tobramycin $ <=1 S (NF) indicates non-formulary drug at [facility]. Approval by Infectious Disease Specialist [...] Prevotella disiens Performed By: #### M100.1500 #### [facility] [address] [place], [address] ALLERGIES ALLERGIES DATE TYPE / CODE NAME / CODE REACTION SEVERITY SOURCE 08/13/2018 Drug No Known Unknown [facility] Allergy/4160 Allergies/F00 Hospital 62994(SNOMED 6867523(RXNOR Repository CT) M) ENCOUNTERS ENCOUNTERS ADMIT/DISCHARGE ACCOUNT ADMITTING ENCOUNTER LOCATION SOURCE NUMBER CLASS 09/01/2018/ [id number] Emergency [place] 9 5 [facility]:ED Repository 08/29/2018 [id number] Ambulatory [place] 0 [facility] ing:OLS.AVED Repository 08/28/2018 [id number] Ambulatory [place] 6 [facility] ing:OLS.AVED Repository 08/27/2018 [id number] Ambulatory [place] 8 [facility] ing:WC Repository 08/26/2018 [id number] Ambulatory [place] 4 [facility] ing:OLS.AVED Repository 08/22/2018 [id number] Ambulatory [place] 3 [facility] ing:OLS.AVED Repository 08/20/2018 [id number] Ambulatory [place] 1 [facility] ing:OLS.AVED Repository 08/19/2018/ [id number] Emergency [place] 9 1 [facility] ing:ED Repository 08/19/2018 [id number] Ambulatory [place] 1 [facility] ing:OLS.AVED Repository 08/13/2018/ [id number] Emergency [place] 9 8 [facility] ing:ED Repository 08/12/2018 [id number] Ambulatory [place] 3 [facility] ing:OLS.AVED Repository 08/06/2018/ [id number] Ambulatory [place] 8 9 [facility] ing:WC Repository 07/12/2018 [id number] Ambulatory [place] 1 [facility] ing:OLS.AVED Repository 07/10/2018 [id number] Ambulatory [place] 4 [facility] ing:OLS.AVED Repository 07/09/2018 [id number] Ambulatory [place] 3 [facility] ing:OLS.AVED Repository 07/08/2018/ [id number] Ambulatory [place] 8 3 [facility] ing:SDCRoom: Repository 17 06/24/2018 [id number] Ambulatory [place] 6 [facility] ing:OLS.AVED Repository 06/14/2018/ [id number] Efrain, Inpatient [place] 8 0 Rolando F [facility] ing:RV4Zvqg: Repository FG638Fir: 1 06/14/2018 [id number] Maris, Ambulatory BMSBuilding:B [place] 0 [place] F [facility] Repository 06/14/2018 [id number] Kedartsonis, Ambulatory BMSBuilding:B [place] 6 Rolando F [facility] Repository 06/14/2018 [id number] Kedartsonis, Ambulatory BMSBuilding:B [place] 0 Rol[place] F [facility] Repository 06/14/2018 [id number] Kedartsonis, Ambulatory BMSBuilding:B [place] 7 Rolando F [facility] Repository 06/14/2018/ [id number] Ambulatory BMSBuilding:B [place] 8 3 MS.[facility] Repository 06/11/2018/ [id number] Ambulatory [place] 8 0 [facility] ing: Repository 05/07/2018/ [id number] Ambulatory [place] 8 0 [facility] ing: Repository 04/15/2018 [id number] Ambulatory [place] 5 [facility] ing:LAB.FE Repository E 04/09/2018/ [id number] Ambulatory [place] 8 2 [facility] Repository 03/05/2018/ [id number] Ambulatory [place] 8 5 [facility] ing: Repository 02/05/2018/ [id number] Ambulatory [place] 8 8 [facility] Repository 01/08/2018/ [id number] Ambulatory [place] 8 4 [facility] ing: Repository 12/04/2017/ [id number] Ambulatory [place] 8 6 [facility] ing: Repository 11/06/2017/ [id number] Ambulatory [place] 8 3 [facility] ing: Repository 10/09/2017/ [id number] Ambulatory [place] 8 7 [facility] ing: Repository 09/11/2017/ [id number] Ambulatory [place] 8 0 [facility] ing: Repository PAYERS PAYERS ENCOUNTER GUARANTOR PAYER SUBSCRIBER SOURCE 09/01/2018 MARIA G Jarquin Primary MARIA G Jarquin [address] Insurance:MEDICARE BAKERDOB: [facility] [id number] E PART A [id number] Number: Repository [place] [id number] [place], [place] Date:2018-09-01 [address]Zhl: () 09/01/2018 Secondary MARIA G K [place] Insurance:[facility] BAKERDOB: [facility] Number: [id number] Hospital [id number] Repository Date:4089-16-30[address], [place] [address]AE: 09/01/2018 Tertiary NOT GIVENUNK [place] Insurance:SELF PAY [facility] Number: Effective Repository Date:2018-09-01 08/29/2018 MARIA G K Primary NOT GIVENUNK [place] [address] Insurance:SELF PAY [facility] [id number] E [facility] Number: Effective Repository [place] Date:2018-08-29 [place], [place] [address]Tet: (HP) 08/28/2018 MARIA G Jarquin Primary NOT GIVENUNK [place] [address] Insurance:SELF PAY [facility] [place] [place] [address] Number: Effective Repository [place] Date:2018-08-28 [place], [place] [address]Irz: (HP) 08/27/2018 MARIA G Jarquin Primary MARIA G Jarquin [place] [address] Insurance:MEDICARE BAKERDOB: [facility] [id number] E [address] A [place] [id number] [place] [address] Number: Repository [place] [id number] [facility] [place] Date:2011-11-11 [address]Fkt: () 08/27/2018 Secondary MARIA G Jarquin [place] Insurance:AARPPolicy BAKERDOB: Community Number: [id number] Hospital [id number] Repository Date:5109-27-59EK [address], [place] [address]YG: 08/27/2018 Tertiary NOT GIVENUNK [place] Insurance:SELF PAY [facility] Number: Effective Repository Date:2018-08-12 08/26/2018 MARIA G Jarquin Primary NOT GIVENUNK [place] [address] Insurance:SELF PAY [address] Number: Effective Repository [place] Date:2018-08-26 [place], [place] [address]Gny: () 08/22/2018 MARIA G K Primary NOT GIVENUNK [place] [address] Insurance:SELF PAY [address] Number: Effective Repository [place] Date:2018-08-22 [place], [place] [address]Qxk: (HP) 08/20/2018 MARIA G K Primary NOT GIVENUNK [place] [address] Insurance:SELF PAY [address] Number: Effective Repository [place] Date:2018-08-20 [place], [place] [address]Wqb: (HP) 08/19/2018 MARIA G K Primary MARIA G K [place] [address] Insurance:MEDICARE BAKERDOB: [facility] [id number] E PART A [facility] [id number] Number: Repository [place] [id number] [facility] Date:2018-08-19 [address]Edo: (HP) 08/19/2018 Secondary MARIA G K [place] Insurance:AARPPolicy BAKERDOB: Community Number: [id number] Hospital [id number] Repository Date:7696-59-14VT [facility] [address], [place] [address]HA: 08/19/2018 Tertiary NOT GIVENUNK [place] Insurance:SELF PAY [facility] Number: Effective Repository Date:2018-08-19 08/19/2018 MARIA G Jarquin Primary NOT GIVENUNK [place] [address] Insurance:SELF PAY [facility] [place] [facility] Number: Effective Repository [place] Date:2018-08-19 [place], [place] [address]Sjb: (HP) 08/13/2018 MARIA G Jarquin Primary MARIA G Jarquin [place] [address] Insurance:MEDICARE BAKERDOB: [facility] [id number] E [address] A [facility] [id number] Number: Repository [place] [id number] [place] Date:2018-08-13 [address]San: (HP) 08/13/2018 Secondary MARIA G Jarquin [place] Insurance:AARPPolicy BAKERDOB: [facility] Number: [id number] Hospital [id number] Repository Date:9774-83-27OZ [facility] [address], [place] [address]WF: 08/13/2018 Tertiary NOT GIVENUNK [place] Insurance:SELF PAY [facility] Number: Effective Repository Date:2018-08-13 08/12/2018 MARIA G Jarquin Primary NOT GIVENUNK [place] [address] Insurance:SELF PAY [facility] [place] [facility] Number: Effective Repository [place] Date:2018-08-12 [place], [place] [address]Vtv: (HP) 08/06/2018 MARIA G Jarquin Primary MARIA G Jarquin [place] [id number] [place] Insurance:MEDICARE [facility]DOB: [facility] [id number] [address]Oge: Number: Repository [id number] (HP) Date:2011-11-11 08/06/2018 Secondary MARIA G Jarquin [place] Insurance:AARPPolicy BAKERDOB: Community Number: [id number] Hospital [id number] Repository Date:5012-29-32CA [facility] [place], [place] [address]YB: 08/06/2018 Tertiary NOT GIVENUNK [place] Insurance:SELF PAY [facility] Number: Effective Repository Date:2018-06-12 07/12/2018 MARIA G Jarquin Primary NOT GIVENUNK Bobby [id number] [place] Insurance:SELF PAY [facility] [address]Gzm: Number: Effective Repository Date:2018-07-12 () 07/10/2018 MARIA G Jarquin Primary NOT GIVENUNK Bobby [id number] [place] Insurance:SELF PAY [facility] [address]Gnd: Number: Effective Repository Date:2018-07-10 () 07/09/2018 MARIA G Jarquin Primary NOT GIVENUNK [place] [id number] [place] Insurance:SELF PAY [facility] [id number]: Number: Effective Repository Date:2018-07-09 () 07/08/2018 MARIA G Jarquin Primary MARIA G Rosales [id number] [place] Insurance:MEDICARE BAKERDOB: [facility], PART A olicy [id number] [address]Kim: Number: Repository [id number] () Date:2018-05-27 07/08/2018 Secondary MARIA G Jarquin Bobby Insurance:AARPPolicy BAKERDOB: Community Number: [id number] Hospital [id number] Repository Date:2055-73-79FY [facility] 419110ZRTSFYJ, [place] [address]LD: 07/08/2018 Tertiary NOT GIVENUNK Bobby Insurance:SELF PAY [facility] Number: Effective Repository Date:2018-05-27 06/24/2018 MARIA G Jarquin Primary NOT GIVENUNK [place] [id number] [place] Insurance:SELF PAY [facility] [place] [address]Ekq: Number: Effective Repository Date:2018-06-24 () 06/14/2018 MARIA G Jarquin Primary MARIA G [id number] [place] Insurance:MEDICARE BAKERDOB: [facility], PART A [address] [address]Ott: Number: Repository [id number] (HP) Date:2018-06-14 06/14/2018 Secondary MARIA G Jarquin [place] Insurance:AARPPolicy BAKERDOB: Community Number: [id number] [id number] Repository Date:8212-29-34QG [facility] 815150RDTXWGX, [place] [address]BN: 06/14/2018 Tertiary NOT GIVENUNK Bobby Insurance:SELF PAY [facility] Number: Effective Repository Date:2018-06-14 06/14/2018 MARIA G Jarquin Primary MARIA G oRsales [id number] [place] Insurance:MEDICARE BAKERDOB: [facility], PART A [address] [address]Svq: Number: Repository [id number] () Date:2018-06-14 06/14/2018 Secondary MARIA G Jarquin [place] Insurance:AARPPolicy BAKERDOB: Community Number: [id number] [id number] Repository Date:2300-18-53LZ [address]HRDPUZG, [place] [address]KX: 06/14/2018 Tertiary NOT GIVENUNK [place] Insurance:SELF PAY [facility] Number: Effective Repository Date:2018-06-14 06/14/2018 MARIA G Jarquin Primary MARIA G Rosales [id number] [place] Insurance:MEDICARE BAKERDOB: [facility], PART A [address] [address]Fyu: Number: Repository [id number] (HP) Date:2018-06-14 06/14/2018 Secondary MARIA G Jarquin Bobby Insurance:AARPPolicy BAKERDOB: Community Number: [id number] [place] [address] [id number] Repository Date:8670-28-07YI [address]JEAWTEB, [place] [address]SJ: 06/14/2018 Tertiary NOT GIVENUNK [place] Insurance:SELF PAY [facility] Number: Effective Repository Date:2018-06-14 06/14/2018 MARIA G Jarquin Primary MARIA G Rosales [id number] [place] Insurance:MEDICARE [facility]ERDOB[id number] [address]Drx: Number: Repository [id number] () Date:2018-06-14 06/14/2018 Secondary MARIA G Jarquin [place] Insurance:AARPPolicy BAKERDOB: Community Number: [id number] [place] [address] [id number] Repository Date:6040-96-61YJ [address]EWVXBLT, [place] [address]GP: 06/14/2018 Tertiary NOT GIVENUNK [place] Insurance:SELF PAY [facility] Number: Effective Repository Date:2018-06-14 06/14/2018 MARIA G Jarquin Primary MARIA G Rosales [id number] [place] Insurance:MEDICARE BAKERDOB: [facility], PART A [facility] [id number] [address]Sxl: Number: Repository [id number] () Date:2018-06-14 06/14/2018 Secondary MARIA G Jarquin Bobby Insurance:AARPPolicy BAKERDOB: Community Number: [id number] [id number] Repository Date:6187-15-02OL [address]SWVGPNS, [place] [address]UV: 06/14/2018 Tertiary NOT GIVENUNK Bobby Insurance:SELF PAY [facility] Number: Effective Repository Date:2018-06-14 06/14/2018 MARIA G Jarquin Primary MARIA G Rosales [id number] [place] Insurance:MEDICARE BAKERDOB: [facility], PART A [facility] [id number] [id number]: Number: Repository [id number] () Date:2018-06-14 06/14/2018 Secondary MARIA G Jarquin Bobby Insurance:AARPPolicy BAKERDOB: Community Number: [id number] [place] [address] [id number] Repository Date:8957-20-25FB [address]PINTRZC, [place] [address]TW: 06/14/2018 Tertiary NOT GIVENUNK Bobby Insurance:SELF PAY [facility] Number: Effective Repository Date:2018-06-14 06/11/2018 Maria G Jarquin Primary Maria G Jarquin Bobby [id number] [place] Insurance:MEDICARE BakerDOB: [facility] [address] [address]Gtn: Number: Repository [id number] () Date:2011-11-11 06/11/2018 Secondary Maria G Jarquin Bobby Insurance:AARPPolicy BakerDOB: Community Number: [id number] [id number] Repository Date:2758-60-71CL [address]AEKWELM, [place] [address]KA: 06/11/2018 Tertiary NOT GIVENUNK Bobby Insurance:SELF PAY [facility] Number: Effective Repository Date:2018-05-12 05/07/2018 Maria G Britton Primary Maria G Jarquin Bobby [id number] [place] Insurance:MEDICARE [facility]DOB: [facility] [address] [id number]: Number: Repository [id number] () Date:2011-11-11 05/07/2018 Secondary Maria G Jarquin [place] Insurance:AARPPolicy BakerDOB: Community Number: [id number] [id number] Repository Date:2101-58-89VV [address]ZPXPUKK, [place] [address]AT: 05/07/2018 Tertiary NOT GIVENUNK Bobby Insurance:SELF PAY [facility] Number: Effective Repository Date:2018-04-12 04/15/2018 Maria G Jarquin Primary Maria G Jarquin [place] [id number] [place] Insurance:MEDICARE BakerDOB: [facility] [address] [address]Hod: Number: Repository [id number] (HP) Date:2018-04-15 04/15/2018 Secondary Maria G Jarquin [place] Insurance:AARPPolicy BakerDOB: Community Number: [id number] [place] [address] [id number] Repository Date:4722-09-25YY [facility] 975204ZOCHNQV, [place] [address]GC: 04/15/2018 Tertiary NOT GIVENUNK Bobby Insurance:SELF PAY [facility] Number: Effective Repository Date:2018-04-15 04/09/2018 Maria G Jarquin Primary Maria G Jarquin Bobby [id number] [place] Insurance:MEDICARE BakerDOB: [facility], PART A [address] [address]Iuk: Number: Repository [id number] (HP) Date:2011-11-11 04/09/2018 Secondary Maria G Jarquin [place] Insurance:AARPPolicy BakerDOB: Community Number: [id number] [place] [address] [id number] Repository Date:4067-08-10TQ [facility] 509905SXEUMRC, [place] [address]UQ: 04/09/2018 Tertiary NOT GIVENUNK Bobby Insurance:SELF PAY [facility] Number: Effective Repository Date:2018-03-12 03/05/2018 Maria G Jarquin Primary Maria G Jarquin Bobby [id number] [place] Insurance:MEDICARE BakerDOB: [facility] [address] [address]Mpq: Number: Repository [id number] (HP) Date:2011-11-11 03/05/2018 Secondary Maria G Jarquin [place] Insurance:AARPPolicy BakerDOB: Community Number: [id number] [id number] Repository Date:5044-75-44FK [address]YQW, [place] [address]QF: 03/05/2018 Tertiary NOT GIVENUNK [place] Insurance:SELF PAY [facility] Number: Effective Repository Date:2018-02-09 02/05/2018 Maria G Jarquin Primary Maria G Rosales [id number] [place] Insurance:MEDICARE BakerDOB: [facility], PART A [facility] [id number] [address]Avl: Number: Repository [id number] () Date:2011-11-11 02/05/2018 Secondary Maria G Jarquin [place] Insurance:AARPPolicy BakerDOB: Community Number: [id number] [place] [address] [id number] Repository Date:0655-65-45DN [address]IJUUXJQ, [place] [address]UT: 02/05/2018 Tertiary NOT GIVENUNK Bobby Insurance:SELF PAY [facility] Number: Effective Repository Date:2018-01-10 01/08/2018 Maria G Jarquin Primary Maria G Jarquin [place] [id number] [place] Insurance:MEDICARE BakerDOB: [facility], PART A [facility] [id number] Santa Fe [facility] [address]Nco: Number: Repository [id number] () Date:2011-11-11 01/08/2018 Secondary Maria G Jarquin [place] Insurance:AARPPolicy BakerDOB: Community Number: [id number] [place] [address] [id number] Repository Date:3014-36-79QO [address]RSVBNTB, [place] [address]JS: 01/08/2018 Tertiary NOT GIVENUNK Bobby Insurance:SELF PAY [facility] Number: Effective Repository Date:2017-12-10 12/04/2017 Maria G Jarquin Primary Maria G Jarquin [place] [id number] [place] Insurance:MEDICARE BakerDOB: [facility], PART A [facility] [id number] [facility] [address]Oxm: Number: Repository [id number] () Date:2011-11-11 12/04/2017 Secondary Maria G K [place] Insurance:AARPPolicy BakerDOB: Community Number: [id number] Hospital [id number] Repository Date:0228-45-07ZN [address]AKRTTAX, [place] [address]LN: 12/04/2017 Tertiary NOT GIVENUNK Bobby Insurance:SELF PAY [facility] Number: Effective Repository Date:2017-11-10 11/06/2017 Maria G K Primary Maria G K Bobby [id number] [place] Insurance:MEDICARE BakerDOB: [facility], PART A [facility] [id number] [facility] [address]Oun: Number: Repository [id number] () Date:2011-11-11 11/06/2017 Secondary Maria G K [place] Insurance:AARPPolicy BakerDOB: Community Number: [id number] Hospital [id number] Repository Date:3022-13-03NN [address]JIQHARH, [place] [address]KI: 11/06/2017 Tertiary NOT GIVENUNK Bobby Insurance:SELF PAY [facility] Number: Effective Repository Date:2017-10-10 10/09/2017 Maria G K Primary Maria G K [place] [id number] [place] Insurance:MEDICARE BakerDOB: [facility], PART A [facility] [id number] [facility] [address]Dod: Number: Repository [id number] () Date:2011-11-11 10/09/2017 Secondary Maria G K [place] Insurance:AARPPolicy BakerDOB: Community Number: [id number] Hospital [id number] Repository Date:6143-02-18AG [address]QFDXDPO, [place] [address]FY: 10/09/2017 Tertiary NOT GIVENUNK Bobby Insurance:SELF PAY [facility] Number: Effective Repository Date:2017-09-12 09/11/2017 Maria G K Primary Maria G K Bobby [id number] [place] Insurance:MEDICARE BakerDOB: [facility] BPolicy [id number] Santa Fe Medical Center [address]Xza: Number: Repository [id number] () Date:2011-11-11 09/11/2017 Secondary Maria G Rosales Insurance:AARPPolicy BakerDOB: Community Number: [id number] Hospital [id number] Repository Date:1498-84-48OF [address]KJIYXMH, [place] [address]CT: 09/11/2017 Tertiary NOT GIVENUNK [place] Insurance:SELF PAY [facility] Number: Effective Repository Date:2017-08-12
== END 2018-09-02 01:04 ==
PROVIDERS: Emergency Provider Emergency Medicine; Family Provider Internal Medicine; PCP Internal Medicine
DX: R10.9 Unspecified abdominal pain (principal); K59.00 Constipation, unspecified; K44.9 Diaphragmatic hernia without obstruction or gangrene; R59.1 Generalized enlarged lymph nodes; E11.9 Type 2 diabetes mellitus without complications; I10 Essential (primary) hypertension; G20 Parkinson's disease; Z87.891 Personal history of nicotine dependence; Z66 Do not resuscitate
CPT/HCPCS: 71045; 74176; 80048; 84484; 85025; 93005; 96361; 96374; 96375; 99285; J7030; J2405